=== PATIENT | male | born 1955 | race Caucasian/White ===

== ENCOUNTER 2019-07-05 19:00 | Inpatient (IN) | payer MEDICARE, MEDICAID, SELFPAY ==
--- NOTE | 2019-07-05 19:00 | NURSING ---
Pt arrived from [facility] via ambulance. Alert and oriented x3, pleasant, skin pale, warm and dry.
[2019-07-05 20:48] VITALS: BP 100/37; PULSE 105; RESP 24; TEMP 36.7; O2SAT 90
--- NOTE | 2019-07-05 21:28 | HP.PCM_ITS ---
Problem List (1) Debility Status: Acute (2) Abdominal pain Status: Acute (3) Pneumoperitoneum Status: Acute (4) Large bowel obstruction Status: Acute (5) Cecum perforation Status: Acute (6) Body mass index (BMI) 40.0-44.9, adult Status: Chronic (7) Obstructive sleep apnea Status: Chronic (8) Gastric ulcer Status: Chronic (9) Ischemic colitis Status: Chronic (10) Coronary artery disease Status: Chronic (11) Atrial fibrillation Status: Chronic (12) Chronic kidney disease Status: Chronic (13) Osteoarthritis Status: Chronic (14) Hyperthyroidism Status: Chronic (15) Chronic systolic (congestive) heart failure Status: Chronic (16) Hypertension Status: Chronic (17) Hyperlipidemia Status: Chronic (18) Kidney stone Status: Chronic (19) Depression Status: Chronic History of Present Illness Date of Admission: 07/05/19 Chief Complaint: Here for rehabilitation, strengthening, prior to discharge home alone. The patient is a 63 year old Male with below past medical history with followin06/27/2019 Admit to [facility] with abdominal pain. Right lower quadrant abdominal pain x 5 days, worse day of admission. Diarrhea prior. Pneumoperitoneum noted. To OR emergently for exploratory laparotomy. 06/27/2019 Large bowel obstruction with cecal perforation. Performed exploratory laparotomy with ileocolectomy with primary anastomosis. 06/06/2019 Echo systolic function mildly decreased. EF 45% Pulmonary artery systolic pressure 35mm HG, mildly increased. 07/04/2019 Pathology shows cecal ischemic necrosis, negative for malignancy. Finished IV Invanz antibiotic course, leukocytosis resolved. Xarelto restarted for atrial fibrillation. PT/OT recommended [facility] for short term rehab. Acute kidney injury improved, Nephrology consulted. 07/05/2019 Admit to TCU with debility, here for rehabilitation, strengthening, prior to discharge home alone. Past Medical History Past Medical History (Chronic Problems): Chronic Problems Body mass index (BMI) 40.0-44.9, adult (Chronic) Obstructive sleep apnea (Chronic) Gastric ulcer (Chronic) Ischemic colitis (Chronic) Coronary artery disease (Chronic) Atrial fibrillation (Chronic) Chronic kidney disease (Chronic) Osteoarthritis (Chronic) Hyperthyroidism (Chronic) Chronic systolic (congestive) heart failure (Chronic) Hypertension (Chronic) Hyperlipidemia (Chronic) Kidney stone (Chronic) Depression (Chronic) Home Medications: Ambulatory Orders Medication Instructions Recorded Atorvastatin Calcium 80 mg PO QHS 07/05/19 Citalopram [Celexa] 40 mg PO DAILY 07/05/19 Clopidogrel Bisulfate [Clopidogrel] 75 mg PO DAILY 07/05/19 Ergocalciferol [Vitamin D] 20,000 units PO BID 07/05/19 Ferrous Sulfate 325 mg PO BIDCM 07/05/19 Methimazole [Tapazole] 2.5 mg PO DAILY 07/05/19 Metoprolol Succinate 200 mg PO DAILY 07/05/19 Multivitamin with Minerals 1 ea PO DAILY 07/05/19 [Multiple Vitamin] Nitroglycerin (INPATIENT USE) 0.4 mg SUBLINGUAL Q5M PRN 07/05/19 [Nitrostat] Pantoprazole Sodium [Protonix] 40 mg PO DAILY 07/05/19 Potassium Chloride [Klor-Con M20] 20 meq PO DAILY 07/05/19 Rivaroxaban [Xarelto] 15 mg PO DAILY 07/05/19 buPROPion tablets [Wellbutrin 100 mg PO BID 07/05/19 tablets] busPIRone [Buspar] 15 mg PO BID 07/05/19 Surgical History: adenoidectomy, coronary bypass surgery - x 5., herniorrhaphy - Epigastric hernia., tonsillectomy, - - Cervical fusion, Knee arthroscopy, Ureteral stent placement. Psychiatric History: Depression Lives: Alone Smoking Status: Former smoker Tobacco Use: Cigars Alcohol: None Drugs: None - *Family History Maternal History Items: Cancer Paternal History Items: Dementia, Heart Disease, Hypertension, - - Thryoid disease. Sibling History Items: Cancer, Diabetes, Heart Disease Review of Systems Constitutional: Denies: Chills, Fever, Weight Change HEENT: Denies: Head Aches, Sinus Congestion, Sinus Drainage Cardiovascular: Denies: Chest Pain, Palpitations Respiratory: Denies: Cough, Shortness of breath at rest, Sputum production Gastrointestinal: Denies: Abdominal Pain, Nausea, Vomiting Genitourinary: Denies: Dysuria Musculoskeletal: Denies: Joint Pain, Joint Tenderness Skin: Denies: Rash, Wounds Neurological: Denies: Numbness, Tingling, Focal weakness Psychiatric: Denies: Anxiety, Depression, Homicidal Ideations, Suicidal Ideations Hematologic/ Lymphatic: Denies: Easy Bruising, Easy Bleeding VTE Information - Inpt Only VTE Present on Admission: No VTE Mechan Device Prophylaxis: Knee High NICKI Hose VTE Pharm Prophylaxis ordered?: No Reason prophylaxis not ordered:: Treatment Not Indicated Patient Problems: Active and Suspected Problems Debility (Acute) Abdominal pain (Acute) Pneumoperitoneum (Acute) Large bowel obstruction (Acute) Cecum perforation (Acute) - Physical Exam Vitals/I&O's: Vital Signs Temp Pulse Resp BP Pulse Ox 98.1 F 105 H 24 H 100/37 L 90 07/05/19 20:48 07/05/19 20:48 07/05/19 20:48 07/05/19 20:48 07/05/19 20:48 Oxygen Delivery Method Room Air General: Alert, Oriented x3, Cooperative HEENT: Atraumatic, PERRLA, EOMI, Normocephalic Neck: Supple, No JVD, Negative Carotid Bruits Lungs: Clear to auscultation, Normal air movement Cardiovascular: No murmurs, Irregular Rate, - - Irregular rhythm. Abdomen: Bowel Sounds Present, Soft, Tender - Left upper quadrant, warm, erythematous. Extremities: No edema, Capillary Refill Less than 3 Seconds Skin: No rashes, No breakdown, Incision - Abdominal incision, reba, clean/dry/intact. Musculoskeletal: No Tenderness to Palpation of Joints or Extremities Neurological: Cranial nerves II-XII grossly intact Psych/Mental Status: Normal Affect, Appropriate Assessment/Plan All Active Problems Debility (Acute) Abdominal pain (Acute) Pneumoperitoneum (Acute) Large bowel obstruction (Acute) Cecum perforation (Acute) 63 year old male with below past medical history hospitalized for pneumoperitoneum, underwent exploratory laparotomy, ileocolectomy, primary anastomosis 06/27/2019, Postoperative course complicated by leukocytosis, encephalopathy, atrial fibrillation with rapid ventricular response, admitted to TCU with debility, here for rehabilitation, strengthening, prior to discharge home alone. * Debility - PT/OT. * Pain - Tylenol 1000MG Q6H PRN pain (1-3), Oxycodone 5MG Q4H PRN pain (4-10). * Bowel - Miralax 17GM daily, Senna/colace 1 tablet BID, Dulcolax 10MG daily PRN. * Adult immunization - Administer Prevnar 13, Pneumovax 23, Fluzone as appropriate. * DVT prophylaxis - Not necessary, already on Xarelto. * Hyperlipidemia - Atorvastatin 80MG QHS. 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 * Anxiety - Buspar 15MG twice daily, stable chronic fdc use, GDR not recommended. * Vitamin D deficiency - D3 2000IU twice daily. * Coronary Artery Disease - Metoprolol succinate 200MG daily, Plavix 75MG daily, NTG 0.4MG Q5M PRN. * Iron deficiency anemia - Ferrous sulfate 325MG twice daily. * Hyperthyroidism - Methimazole 2.5MG daily. * Nutrition - Wayne 1 packet twice daily, MVI daily. * GERD - Pantoprazole 40MG daily. * Hypokalemia - KCL 20MEQ daily. * Atrial fibrillation - Metoprolol succinate 200MG daily, Xarelto 15MG daily. * Abdominal cellulitis - Clindamycin 300MG TID x 7 days.
[2019-07-05 23:33] VITALS: BMI 45.7
[2019-07-05 23:42] VITALS: BMI 45.7
[2019-07-06] MEDS: Atorvastatin Calcium 80 MG Tablet PO ×2 (01:33→22:59)
[2019-07-06] MEDS: oxyCODONE 5 MG Tablet PO ×3 (02:07→23:01)
[2019-07-06] MEDS: Rivaroxaban 15 MG Tablet PO (06:10)
[2019-07-06] MEDS: METHIMAZOLE 5 MG TABLET 2.5 MG PO (06:11)
[2019-07-06] MEDS: Pantoprazole Sodium 40 MG Tablet PO (06:12)
[2019-07-06] MEDS: busPIRone 15 MG TABLET PO ×2 (06:12→17:35)
[2019-07-06] MEDS: Clopidogrel Bisulfate 75 MG Tablet PO (06:12)
[2019-07-06 06:13] VITALS: BP 126/64; PULSE 94
[2019-07-06] MEDS: Metoprolol(XL)Succ 200 MG Tablet PO (06:13)
[2019-07-06] MEDS: buPROPion 100 MG Tablet PO ×2 (06:14→17:41)
[2019-07-06 06:48] LABS: Absolute Neutrophil Count 10.4 X10^3/uL (2.0-7.7); Basophil# 0.04 X10^3/uL; Basophil% 0.3 % (0-1); Eosinophil# 0.21 X10^3/uL; Eosinophils% 1.7 % (0-5); Hematocrit 24.5 % (40-54); Hemoglobin 8.1 g/dL (13.0-16.5); Lymphocyte % 7.9 % (19-41); Mean Corp Hgb Conc 33.1 g/dL (32-36); Mean Corpuscular Hgb 30.5 pg (27.0-32.0); Mean Corpuscular Volume 92.1 fL (80-94); Monocyte# 0.89 X10^3/uL; NRBC Flagged by Analyzer 0 % (0-5); Neutrophil # 10.38 X10^3/uL (2.7-7.7); Neutrophil % 81.9 % (47-70); Platelet Count 316 K/mm3 (150-450); RBC Distribution Width CV 13.8 % (11.6-14.6); RBC Distribution Width SD 46.7 fl (35.1-43.9); Red Blood Count 2.66 M/mm3 (4.6-6.2); White Blood Count 12.7 K/mm3 (4.4-11.0)
[2019-07-06 07:08] LABS: Anion Gap 4 (5-15); BUN 15 mg/dL (7-18); BUN/Creat Ratio 17.5 RATIO (10-20); Calcium,Total 8.1 mg/dL (8.5-10.1); Chloride 106 mmol/L (98-107); Creatinine, Serum 0.86 mg/dL (0.70-1.30); EST Glomerular Filtration Rate 95 mL/min (>60); Est Glom Filt Rate - Afr Amer 115 mL/min (>60); Estimated Creatinine Clearance 93.99 ml/min; Glucose 110 mg/dL (74-106); Potassium 3.4 mmol/L (3.5-5.1); Sodium Level 137 mmol/L (136-145)
[2019-07-06] MEDS: Multivitamins,Ther W-Minerals Tablet 1 TABLET PO (08:34)
[2019-07-06] MEDS: Ferrous Sulfate 325 MG Tablet PO ×2 (08:34→17:36)
--- NOTE | 2019-07-06 10:29 | CASEMGMT ---
Social Work Discussed code status with pt. Pt confirmed full code. MOLST form completed and put in chart. Rhianna Triplett, AUTOMATIC QUILLING MACHINE OPERATOR MECHANICAL EQUIPMENT SALES ENGINEER
[2019-07-06] MEDS: Clindamycin HCl 150 MG Capsule 300 MG PO ×3 (11:20→22:59)
[2019-07-06] MEDS: Tuberculin,Purif.prot.deriv. 50 TU/ML Vial 5 ML ID (11:25)
[2019-07-06 14:40] VITALS: BP 134/55; PULSE 92; RESP 18; TEMP 36.3; O2SAT 93
--- NOTE | 2019-07-06 15:28 | CHAPLAIN ---
Type of Pastoral Visit _x__ Initial Visit ___ Follow-up Visit ___ On-call Visit ___ General Patient Visit ___ Spiritual Assessment ___ Family Conference ___ Bereavement ___ Rapid Response ___ Code Blue ___ Other (describe below) Pastoral Care Referral From _x__ Patient ___ Family ___ Nurse ___ Physician ___ Charge Manager ___ Paper Bag Inspector ___ Other (describe below) Sacrament/Intervention _x__ Active listening ___ Anointing ___ Caodaism ___ Bereavement ___ Communion ___ Irene exploration ___ _x__ Life review ___ Prayer ___ Reconciliation ___ Sacrament of Sick _x__ Supportive presence ___ Wedding ___ Other (describe below) Pastoral Comments patient is welcoming and talkative; pt is recently retired; pt has son and a niece that live nearby for support; pt has grandchildren that he wants to spend time with in the future; pt is interested in future visits from geophysical drafter
--- NOTE | 2019-07-06 16:05 | CASEMGMT ---
Social Work Completed advanced directives with pt. Pt named son, Jordon Pederson, as HCPOA. Copies placed in chart. Rhianna Triplett, COREROOM FOUNDRY LABORER IT COMPLIANCE MANAGER
[2019-07-06] MEDS: Senna/Docusate Sodium 1 Tablet PO (17:36)
[2019-07-07] MEDS: Rivaroxaban 15 MG Tablet PO (06:32)
[2019-07-07] MEDS: buPROPion 100 MG Tablet PO ×2 (06:32→16:42)
[2019-07-07] MEDS: METHIMAZOLE 5 MG TABLET 2.5 MG PO (06:33)
[2019-07-07] MEDS: Pantoprazole Sodium 40 MG Tablet PO (06:33)
[2019-07-07] MEDS: Clindamycin HCl 150 MG Capsule 300 MG PO ×3 (06:33→20:30)
[2019-07-07 06:34] VITALS: BP 115/73; PULSE 91
[2019-07-07] MEDS: Metoprolol(XL)Succ 200 MG Tablet PO (06:34)
[2019-07-07] MEDS: Clopidogrel Bisulfate 75 MG Tablet PO (06:34)
[2019-07-07] MEDS: busPIRone 15 MG TABLET PO ×2 (06:34→16:42)
--- NOTE | 2019-07-07 07:52 | NURSING ---
This last night around 21:30 this nurse was doing a assessment on the pt and noted redness around the abdominal area. Had Valerie, Rn assess and she stated it was more redness then yesterday. So we jaye the area with marker and pt started on ATB for redness.
[2019-07-07] MEDS: Multivitamins,Ther W-Minerals Tablet 1 TABLET PO (08:38)
[2019-07-07] MEDS: Ferrous Sulfate 325 MG Tablet PO ×2 (08:38→16:41)
[2019-07-07] MEDS: oxyCODONE 5 MG Tablet PO (08:44)
--- NOTE | 2019-07-07 11:18 | PHA.CONS_ITS ---
<Alli Tucker C - Last Filed: 07/07/19 11:18> Progress Note - Pharmacy Subjective: [] TCU Admission Objective: Allergies Penicillins [PCN] Allergy (Verified 07/05/19 23:59) Swelling Current Medications Generic Name Dose Route Start Last Admin Trade Name Freq PRN Reason Stop Dose Admin Acetaminophen 1,000 mg 07/06/19 01:51 Tylenol PO Q6H PRN PRN pain 1-3/10 Atorvastatin Calcium 80 mg 07/06/19 22:00 07/06/19 22:59 Lipitor PO 80 mg QHS ALINA Administration Bisacodyl 10 mg 07/05/19 22:54 Dulcolax PO DAILY PRN PRN Constipation Bupropion HCl 100 mg 07/06/19 06:00 07/07/19 06:32 Wellbutrin Tablets PO 100 mg BID ALINA Administration Buspirone HCl 15 mg 07/06/19 06:00 07/07/19 06:34 Buspar PO 15 mg BID ALINA Administration Cholecalciferol 2,000 unit 07/06/19 08:00 07/07/19 08:38 Vitamin D (25mcg) PO 2,000 unit BIDCM [facility] Administration Clindamycin HCl 300 mg 07/06/19 09:00 07/07/19 06:33 Cleocin PO 07/13/19 14:01 300 mg TID ALINA Administration Clopidogrel Bisulfate 75 mg 07/06/19 06:00 07/07/19 06:34 Plavix PO 75 mg DAILY ALINA Administration Ferrous Sulfate 325 mg 07/06/19 08:00 07/07/19 08:38 Ferrous Sulfate PO 325 mg BIDCM [facility] Administration Methimazole 2.5 mg 07/06/19 06:00 07/07/19 06:33 Tapazole PO 2.5 mg DAILY [facility] Administration Metoprolol Succinate 200 mg 07/06/19 06:00 07/07/19 06:34 Toprol Xl (Beta Sari) PO 200 mg DAILY [facility] Administration Multivitamins/Minerals 1 tablet 07/06/19 08:00 07/07/19 08:38 Multivitamin With Minerals (Bkc) PO 1 tablet DAILY@0800 [facility] Administration Nitroglycerin 0.4 mg 07/05/19 23:07 Nitrostat SUBLINGUAL Q5M PRN CHEST Nutritional Formula 1 packet 07/06/19 08:00 07/07/19 08:38 [place] Flavor PO 1 packet BIDCM ALINA Administration Oxycodone HCl 5 mg 07/06/19 01:51 07/07/19 08:44 Oxyir PO 5 mg Q4H PRN PRN Administration Pain Score 4-10/10 Pantoprazole Sodium 40 mg 07/06/19 06:00 07/07/19 06:33 Protonix PO 40 mg DAILY ALINA Administration Polyethylene Glycol 17 gm 07/07/19 06:00 07/07/19 06:34 Miralax PO Not Given DAILY ALINA Potassium Chloride 20 meq 07/06/19 08:00 07/07/19 08:38 K-Dur PO 20 meq DAILYCM ALINA Administration Rivaroxaban 15 mg 07/06/19 06:00 07/07/19 06:32 Xarelto PO 15 mg DAILY ALINA Administration Senna/Docusate Sodium 1 tablet 07/06/19 18:00 07/07/19 06:34 Senokot-S, Kareen-Colace PO Not Given BID [facility] Tuberculin PPD 5 tu 07/13/19 10:00 Tubersol, Aplisol, Ppd ID 07/13/19 10:01 X1 ONE Problem List Debility (Acute) Abdominal pain (Acute) Pneumoperitoneum (Acute) Large bowel obstruction (Acute) Cecum perforation (Acute) Body mass index (BMI) 40.0-44.9, adult (Chronic) Obstructive sleep apnea (Chronic) Gastric ulcer (Chronic) Ischemic colitis (Chronic) Coronary artery disease (Chronic) Atrial fibrillation (Chronic) Chronic kidney disease (Chronic) Osteoarthritis (Chronic) Hyperthyroidism (Chronic) Chronic systolic (congestive) heart failure (Chronic) Hypertension (Chronic) Hyperlipidemia (Chronic) Kidney stone (Chronic) Depression (Chronic) Vital Signs Temp Pulse Resp BP Pulse Ox 97.4 F L 91 18 115/73 93 07/06/19 14:40 07/07/19 06:34 07/06/19 14:40 07/07/19 06:34 07/06/19 14:40 Oxygen Delivery Method Room Air Weight: 152.9 kg Body Mass Index (BMI) 45.7 Sodium 137 mmol/L (136-145) 07/06/19 06:35 Potassium 3.4 mmol/L (3.5-5.1) L 07/06/19 06:35 Chloride 106 mmol/L (98-107) 07/06/19 06:35 Carbon Dioxide 27.0 mmol/L (21.0-32.0) 07/06/19 06:35 Anion Gap 4 (5-15) L 07/06/19 06:35 BUN 15 mg/dL (7-18) 07/06/19 06:35 Creatinine 0.86 mg/dL (0.70-1.30) 07/06/19 06:35 Est GFR (MDRD) Af Amer 115 mL/min (>60) 07/06/19 06:35 Est GFR (MDRD) Non-Af 95 mL/min (>60) 07/06/19 06:35 BUN/Creatinine Ratio 17.5 RATIO (10-20) 07/06/19 06:35 Glucose 110 mg/dL (74-106) H 07/06/19 06:35 Assessment/Plan: 1) Pain: Acetaminophen 1000mg po q6h prn for pain 1-3/10, Oxycodone 5mg po q4h prn pain 4-10/10. Please continue to monitor prn usage and for signs/symptoms of increased/decreased pain. *2) GERD: Pantoprazole 40mg po daily. Please continue to monitor for signs/symptoms of GERD. I could not find a recent serum Magnesium level in the pts chart. Please consider a yearly Magnesium level while the pt is on Pantoprazole. Thanks *3) Hyperlipidemia: Atorvastatin 80mg po qhs. I could not find a recent Lipid panel or a LFT in the pt's chart. Please consider a yearly Lipid panel and LFT while the pt is taking a statin. Thanks 4) Hypokalemia: Potassium Chloride 20meq po daily. Pt's K+ is 3.4. Please continue to monitor. 5) AFib: Metoprolol Succinate 200mg po daily, Xarelto 15mg po daily. Pt's average pulse rate is 95.5. Please continue to monitor. Pt's average BP is 118.75/57.25. Please continue to monitor. 6) Iron Deficiency Anemia: Ferrous Sulfate 325mg bid. Pt's H+H is 8.1 and 24.5 respectively. Please continue to monitor. *7) Hyperthyroidism: Methimazole 2.5mg po daily. I could not find a recent LFT or Thyroid Function Tests in the pts chart. Please consider a yearly LFT test and Thyroid Function Tests while the pt is taking Methimazole. Thanks 8) CAD: Metoprolol Succinate 200mg po daily, Plavix 75mg po daily, NTG 0.4mg sl q5m prn for chest pain. Please continue to monitor prn usage. Pt's average BP is 118.75/57.25. Please continue to monitor. Please continue to monitor for signs/symptoms of bleeding Psychotropic Medications: Buproprion 100mg po bid for depression. See physicians note about GDR. Buspar 15mg po bid for anxiety. See physicians note about GDR Unnecessary Medications: Bowel Regimen: Bisacodyl 10mg po daily prn for constipation, Miralax 17gm po daily, Senna/Docusate 1 tablet po bid. Please continue to monitor prn usage and for signs/symptoms of constipation/diarrhea. Date of Note:: 07/07/19 - Provider Comments Provider responsibility: Provider responsible to enter orders to implement recommendations <Hans Telles Chi - Last Filed: 07/07/19 16:15> Progress Note - Pharmacy Subjective: [] Objective: Allergies Penicillins [PCN] Allergy (Verified 07/05/19 23:59) Swelling Current Medications Generic Name Dose Route Start Last Admin Trade Name Freq PRN Reason Stop Dose Admin Acetaminophen 1,000 mg 07/06/19 01:51 Tylenol PO Q6H PRN PRN pain 1-3/10 Atorvastatin Calcium 80 mg 07/06/19 22:00 07/06/19 22:59 Lipitor PO 80 mg QHS ALINA Administration Bisacodyl 10 mg 07/05/19 22:54 Dulcolax PO DAILY PRN PRN Constipation Bupropion HCl 100 mg 07/06/19 06:00 07/07/19 06:32 Wellbutrin Tablets PO 100 mg BID ALINA Administration Buspirone HCl 15 mg 07/06/19 06:00 07/07/19 06:34 Buspar PO 15 mg BID ALINA Administration Cholecalciferol 2,000 unit 07/06/19 08:00 07/07/19 08:38 Vitamin D (25mcg) PO 2,000 unit BIDCM [facility] Administration Clindamycin HCl 300 mg 07/06/19 09:00 07/07/19 13:18 Cleocin PO 07/13/19 14:01 300 mg TID ALINA Administration Clopidogrel Bisulfate 75 mg 07/06/19 06:00 07/07/19 06:34 Plavix PO 75 mg DAILY [facility] Administration Ferrous Sulfate 325 mg 07/06/19 08:00 07/07/19 08:38 Ferrous Sulfate PO 325 mg BIDCM [facility] Administration Methimazole 2.5 mg 07/06/19 06:00 07/07/19 06:33 Tapazole PO 2.5 mg DAILY [facility] Administration Metoprolol Succinate 200 mg 07/06/19 06:00 07/07/19 06:34 Toprol Xl (Beta Sari) PO 200 mg DAILY [facility] Administration Multivitamins/Minerals 1 tablet 07/06/19 08:00 07/07/19 08:38 Multivitamin With Minerals (Bkc) PO 1 tablet DAILY@0800 [facility] Administration Nitroglycerin 0.4 mg 07/05/19 23:07 Nitrostat SUBLINGUAL Q5M PRN CHEST Nutritional Formula 1 packet 07/06/19 08:00 07/07/19 08:38 [place] Flavor PO 1 packet BIDCM [facility] Administration Oxycodone HCl 5 mg 07/06/19 01:51 07/07/19 08:44 Oxyir PO 5 mg Q4H PRN PRN Administration Pain Score 4-10/10 Pantoprazole Sodium 40 mg 07/06/19 06:00 07/07/19 06:33 Protonix PO 40 mg DAILY [facility] Administration Polyethylene Glycol 17 gm 07/07/19 06:00 07/07/19 06:34 Miralax PO Not Given DAILY [facility] Potassium Chloride 20 meq 07/06/19 08:00 07/07/19 08:38 [facility] Rivaroxaban 15 mg 07/06/19 06:00 07/07/19 06:32 Xarelto PO 15 mg DAILY [facility] Administration Senna/Docusate Sodium 1 tablet 07/06/19 18:00 07/07/19 06:34 Senokot-S, Kareen-Colace PO Not Given BID [facility] Tuberculin PPD 5 tu 07/13/19 10:00 Tubersol, Aplisol, Ppd ID 07/13/19 10:01 X1 ONE Problem List Debility (Acute) Abdominal pain (Acute) Pneumoperitoneum (Acute) Large bowel obstruction (Acute) Cecum perforation (Acute) Body mass index (BMI) 40.0-44.9, adult (Chronic) Obstructive sleep apnea (Chronic) Gastric ulcer (Chronic) Ischemic colitis (Chronic) Coronary artery disease (Chronic) Atrial fibrillation (Chronic) Chronic kidney disease (Chronic) Osteoarthritis (Chronic) Hyperthyroidism (Chronic) Chronic systolic (congestive) heart failure (Chronic) Hypertension (Chronic) Hyperlipidemia (Chronic) Kidney stone (Chronic) Depression (Chronic) Vital Signs Temp Pulse Resp BP Pulse Ox 99.4 F H 95 17 110/71 98 07/07/19 14:26 07/07/19 14:26 07/07/19 14:26 07/07/19 14:26 07/07/19 14:26 Oxygen Delivery Method Room Air Weight: 152.9 kg Body Mass Index (BMI) 45.7 Sodium 137 mmol/L (136-145) 07/06/19 06:35 Potassium 3.4 mmol/L (3.5-5.1) L 07/06/19 06:35 Chloride 106 mmol/L (98-107) 07/06/19 06:35 Carbon Dioxide 27.0 mmol/L (21.0-32.0) 07/06/19 06:35 Anion Gap 4 (5-15) L 07/06/19 06:35 BUN 15 mg/dL (7-18) 07/06/19 06:35 Creatinine 0.86 mg/dL (0.70-1.30) 07/06/19 06:35 Est GFR (MDRD) Af Amer 115 mL/min (>60) 07/06/19 06:35 Est GFR (MDRD) Non-Af 95 mL/min (>60) 07/06/19 06:35 BUN/Creatinine Ratio 17.5 RATIO (10-20) 07/06/19 06:35 Glucose 110 mg/dL (74-106) H 07/06/19 06:35 Assessment/Plan: Psychotropic Medications: Unnecessary Medications: Bowel Regimen: - Provider Comments Provider responsibility: Provider responsible to enter orders to implement recommendations Provider Comments to Recommendations by Pharmacy: Agree
[2019-07-07 14:26] VITALS: BP 110/71; PULSE 95; RESP 17; TEMP 37.4; O2SAT 98
[2019-07-07] MEDS: Senna/Docusate Sodium 1 Tablet PO (16:42)
[2019-07-07 17:38] VITALS: TEMP 37.1
[2019-07-07] MEDS: Acetaminophen 500 MG Tablet 1000 MG PO (20:29)
[2019-07-07] MEDS: Atorvastatin Calcium 80 MG Tablet PO (20:30)
[2019-07-08] MEDS: buPROPion 100 MG Tablet PO ×2 (06:22→17:42)
[2019-07-08] MEDS: busPIRone 15 MG TABLET PO ×2 (06:22→17:42)
[2019-07-08] MEDS: Clindamycin HCl 150 MG Capsule 300 MG PO ×3 (06:22→21:32)
[2019-07-08] MEDS: METHIMAZOLE 5 MG TABLET 2.5 MG PO (06:22)
[2019-07-08] MEDS: Clopidogrel Bisulfate 75 MG Tablet PO (06:22)
[2019-07-08] MEDS: Rivaroxaban 15 MG Tablet PO (06:23)
[2019-07-08] MEDS: Pantoprazole Sodium 40 MG Tablet PO (06:23)
[2019-07-08 06:24] VITALS: BP 113/65; PULSE 100
[2019-07-08] MEDS: Metoprolol(XL)Succ 200 MG Tablet PO (06:24)
[2019-07-08] MEDS: Menthol/Lanolin/Calamine/Znox 113 GM Tube 1 APPLIC TOPICAL ×2 (06:27→21:32)
[2019-07-08] MEDS: Ferrous Sulfate 325 MG Tablet PO ×2 (08:00→17:42)
[2019-07-08] MEDS: Multivitamins,Ther W-Minerals Tablet 1 TABLET PO (08:00)
--- NOTE | 2019-07-08 12:14 | CASEMGMT ---
Social Work Insurance issued LCD 07/12, DC 07/13. Spoke with pt and pt agreeable and ready to DC. Pt's son has all DME needed. Pt agreeable to [facility]. Provided list. Pt chose [facility]. Referral made for PT/OT/SN. Plan: DC home alone 07/13 with [facility] PT/OT/SN. No DME needs Rhianna Triplett, LEATHER FINISHER CEREAL SUPERVISOR
[2019-07-08 13:34] VITALS: PULSE 64; RESP 18; O2SAT 92
[2019-07-08 14:41] VITALS: BP 123/44; PULSE 90; RESP 18; TEMP 37.6; O2SAT 98
[2019-07-08] MEDS: oxyCODONE 5 MG Tablet PO ×2 (17:47→23:20)
[2019-07-08] MEDS: Atorvastatin Calcium 80 MG Tablet PO (21:32)
[2019-07-09] MEDS: Clopidogrel Bisulfate 75 MG Tablet PO (06:10)
[2019-07-09] MEDS: Menthol/Lanolin/Calamine/Znox 113 GM Tube 1 APPLIC TOPICAL ×2 (06:10→23:24)
[2019-07-09] MEDS: METHIMAZOLE 5 MG TABLET 2.5 MG PO (06:10)
[2019-07-09] MEDS: Pantoprazole Sodium 40 MG Tablet PO (06:10)
[2019-07-09 06:11] VITALS: BP 137/73; PULSE 71
[2019-07-09] MEDS: Clindamycin HCl 150 MG Capsule 300 MG PO (06:11)
[2019-07-09] MEDS: Metoprolol(XL)Succ 200 MG Tablet PO (06:11)
[2019-07-09] MEDS: Rivaroxaban 15 MG Tablet PO (06:11)
[2019-07-09] MEDS: busPIRone 15 MG TABLET PO ×2 (06:11→16:57)
[2019-07-09] MEDS: buPROPion 100 MG Tablet PO ×2 (06:11→16:57)
[2019-07-09] MEDS: Ferrous Sulfate 325 MG Tablet PO ×2 (08:23→16:57)
[2019-07-09] MEDS: Multivitamins,Ther W-Minerals Tablet 1 TABLET PO (08:41)
--- NOTE | 2019-07-09 13:28 | DCINST_ITS ---
- Discharge Diagnoses Current Active Problems: Current Active and Chronic Problems Debility (Acute) Abdominal pain (Acute) Pneumoperitoneum (Acute) Large bowel obstruction (Acute) Cecum perforation (Acute) Body mass index (BMI) 40.0-44.9, adult (Chronic) Obstructive sleep apnea (Chronic) Gastric ulcer (Chronic) Ischemic colitis (Chronic) Coronary artery disease (Chronic) Atrial fibrillation (Chronic) Chronic kidney disease (Chronic) Osteoarthritis (Chronic) Hyperthyroidism (Chronic) Chronic systolic (congestive) heart failure (Chronic) Hypertension (Chronic) Hyperlipidemia (Chronic) Kidney stone (Chronic) Depression (Chronic) You will use the following diet at home:: No restrictions, Regular Your food should be the consistency of: Regular Your liquids should be the consistency of: Regular/Thin Discharge Activity: Return to Normal Activity, May Shower, Use Walker Weight Bearing Status: Weight bearing as tolerated Call your doctor if you observe: Fever of 101 or Higher, Inability to urinate, Inability to have a bowel movement, Shortness of breath, Chest pain, Uncontrolled pain Allergies/Adverse Reactions: Allergies Penicillins [PCN] Allergy (Verified 07/05/19 23:59) Swelling Medications to take at Discharge Atorvastatin Calcium 80 mg PO QHS 07/05/19 Clopidogrel Bisulfate [Clopidogrel] 75 mg PO DAILY 07/05/19 Methimazole [Tapazole] 2.5 mg PO DAILY 07/05/19 Metoprolol Succinate 200 mg PO DAILY 07/05/19 Multivitamin with Minerals [Multiple Vitamin] 1 ea PO DAILY 07/05/19 Nitroglycerin (INPATIENT USE) [Nitrostat] 0.4 mg SUBLINGUAL Q5M PRN 07/05/19 Potassium Chloride [Klor-Con M20] 20 meq PO DAILY 07/05/19 Rivaroxaban [Xarelto] 15 mg PO DAILY 07/05/19 buPROPion tablets [Wellbutrin tablets] 100 mg PO BID 07/05/19 busPIRone [Buspar] 15 mg PO BID 07/05/19 Acetaminophen [Tylenol] 1,000 mg PO Q6H PRN PRN tab 07/09/19 Ferrous Sulfate 325 mg PO BIDCM #60 tab 07/09/19 Menthol/Lanolin/Calamine/Znox [Calmoseptine Ointment] 1 applic TOPICAL 0600,2200 tube 07/09/19 Mineral Oil/Petrolatum,White [Eucerin] 1 applic TOPICAL 2200 jar 07/09/19 Nutritional Supplement [[place] - [place]] 1 packet PO BIDCM #60 packet 07/09/19 Oxycodone [Oxyir] 5 mg PO Q4H PRN PRN 7 Days #42 tab 07/09/19 Pantoprazole Sodium [Protonix] 40 mg PO DAILY #30 tab 07/09/19 Polyethylene Glycol 3350 [Miralax] 17 gm PO DAILY #30 packet 07/09/19 Senna/Docusate Sodium [Senokot-S] 1 tab PO BID #60 tab 07/09/19 The following prescriptions were given: Ferrous Sulfate 325 mg PO BIDCM #60 tab Prescription Printed Nutritional Supplement [[place] - [place]] 1 packet PO BIDCM #60 packet Prescription Printed Polyethylene Glycol 3350 [Miralax] 17 gm PO DAILY #30 packet Prescription Printed Oxycodone [Oxyir] 5 mg PO Q4H PRN PRN 7 Days #42 tab PRN Reason: Pain Score 4-10/10 Prescription Printed Pantoprazole Sodium [Protonix] 40 mg PO DAILY #30 tab Prescription Printed Senna/Docusate Sodium [Senokot-S] 1 tab PO BID #60 tab Prescription Printed Primary Care Physician: Jj Rogers MD [NON-STAFF] - Please follow up with your Primary Care Physician in: 1 week. Test Results: Test results from this visit will be discussed in further detail at your follow- up appointment, if applicable. Please Follow Up With: Mary Valle MD When: 2 weeks. Please Follow Up With: Clif Kenny MD (will NOT need to see Alissa Nath CNP) When: 2 weeks. Please Follow Up With: Ke Carr MD When: in 1 week Please Follow Up With: Mary Valle MD When: patti Proposed Discharge Date: 07/14/19
--- NOTE | 2019-07-09 13:31 | PCM.DC.SUM ---
Discharge Date and Diagnosis - Problem List Patient Problems: Active and Suspected Problems Debility (Acute) Abdominal pain (Acute) Pneumoperitoneum (Acute) Large bowel obstruction (Acute) Cecum perforation (Acute) Date of Admission: 07/05/19 Date of Discharge: 07/14/19 - Primary Discharge Diagnosis Active and Suspected Problems Debility (Acute) Abdominal pain (Acute) Pneumoperitoneum (Acute) Large bowel obstruction (Acute) Cecum perforation (Acute) - Secondary Discharge Diagnosis Chronic Problems Body mass index (BMI) 40.0-44.9, adult (Chronic) Obstructive sleep apnea (Chronic) Gastric ulcer (Chronic) Ischemic colitis (Chronic) Coronary artery disease (Chronic) Atrial fibrillation (Chronic) Chronic kidney disease (Chronic) Osteoarthritis (Chronic) Hyperthyroidism (Chronic) Chronic systolic (congestive) heart failure (Chronic) Hypertension (Chronic) Hyperlipidemia (Chronic) Kidney stone (Chronic) Depression (Chronic) Hospital Course and Treatment Imaging Results: 07/05/19 23:01 Diet: Regular Diet Food consistency:: Regular Liquid Consistency:: Regular/Thin Diet Comments: low fiber Operations: None Procedures: None Summary of Care Provided: The patient is a 63 year old Male with below past medical history hospitalized for pneumoperitoneum, underwent exploratory laparotomy, ileocolectomy, primary anastomosis 06/27/2019, Postoperative course complicated by leukocytosis, encephalopathy, atrial fibrillation with rapid ventricular response, admitted to TCU with debility, here for rehabilitation, strengthening, prior to discharge home alone. 07/05/2019 Resident treated for abdominal incision cellulitis with Levaquin 500MG IV Q24H x 5 days. Discharge home alone, [facility] PT/OT/SN. Patient Problems: Active and Suspected Problems Debility (Acute) Abdominal pain (Acute) Pneumoperitoneum (Acute) Large bowel obstruction (Acute) Cecum perforation (Acute) - Physical Exam Vitals/I&O's: Vital Signs Temp Pulse Resp BP Pulse Ox 99.6 F H 71 18 137/73 H 98 07/08/19 14:41 07/09/19 06:11 07/08/19 14:41 07/09/19 06:11 07/08/19 14:41 Oxygen Delivery Method Room Air Weight: 152.9 kg Body Mass Index (BMI) 45.7 Intake and Output for Last 24 Hours 07/07/19 07/08/19 07/09/19 23:59 23:59 23:59 Intake Total 1080 / 1080 1910 / 1910 520 / 520 Output Total 2 / 2 Balance 1078 / 1078 1909 520 / 520 Current Medications Acetaminophen (Tylenol) 1,000 mg PO Q6H PRN PRN PRN Reason: pain -05/17 Last Admin: 07/07/19 20:29 Dose: 1,000 mg Documented by: Atorvastatin Calcium (Lipitor) 80 mg PO QHS [facility] Last Admin: 07/08/19 21:32 Dose: 80 mg Documented by: Bisacodyl (Dulcolax) 10 mg PO DAILY PRN PRN PRN Reason: Constipation Bupropion HCl (Wellbutrin Tablets) 100 mg PO BID [facility] Last Admin: 07/09/19 06:11 Dose: 100 mg Documented by: Buspirone HCl (Buspar) 15 mg PO BID [facility] Last Admin: 07/09/19 06:11 Dose: 15 mg Documented by: Calamine/Phenol (Calmoseptine Ointment) 1 applic TOPICAL 0600,2199 [facility]; Protocol Last Admin: 07/09/19 06:10 Dose: 1 applicatio Documented by: Cholecalciferol ([facility]itamin [facility] (25mcg)) [facility] Admin: 07/09/19 08:23 Dose: 2,000 unit Documented by: Clopidogrel Bisulfate (Plavix) 75 mg PO DAILY [facility] Last Admin: 07/09/19 06:10 Dose: 75 mg Documented by: Ferrous Sulfate (Ferrous Sulfate) 325 mg PO BIDCM [facility] Last Admin: 07/09/19 08:23 Dose: 325 mg Documented by: Levofloxacin (Levaquin Iv) 500 mg in 100 mls @ 100 mls/hr IV X1 ONE Stop: 07/09/19 14:15 Levofloxacin (Levaquin Iv) 500 mg in 100 mls @ 100 mls/hr IV Q24 [facility] Stop: 07/15/19 10:01 Methimazole (Tapazole) 2.5 mg PO DAILY [facility] Last Admin: 07/09/19 06:10 Dose: 2.5 mg Documented by: Metoprolol Succinate (Toprol Xl (Beta Sari)) 200 mg PO DAILY [facility] Last Admin: 07/09/19 06:11 Dose: 200 mg Documented by: Multi-Ingredient Cream (Eucerin) 1 applic TOPICAL 2199 [facility]; Protocol Last Admin: 07/08/19 21:35 Dose: 1 applicatio Documented by: Multivitamins/Minerals (Multivitamin With Minerals (Bkc)) 1 tablet PO DAILY@0800 [facility] Last Admin: 07/09/19 08:41 Dose: 1 tablet Documented by: Nitroglycerin (Nitrostat) 0.4 mg SUBLINGUAL Q5M PRN PRN Reason: CHEST Nutritional Formula ([place] - [place] Flavor) [facility] Last Admin: 07/09/19 08:23 Dose: 1 packet Documented by: Oxycodone HCl (Oxyir) 5 mg PO Q4H PRN PRN PRN Reason: Pain Score 4-10/10 Last Admin: 07/08/19 23:20 Dose: 5 mg Documented by: Pantoprazole Sodium (Protonix) 40 mg PO DAILY [facility] Last Admin: 07/09/19 06:10 Dose: 40 mg Documented by: Polyethylene Glycol (Miralax) 17 gm PO DAILY [facility] Last Admin: 07/09/19 06:10 Dose: Not Given Documented by: Potassium Chloride (K-Dur) [facility] Last Admin: 07/09/19 08:23 Dose: 20 meq Documented by: Rivaroxaban (Xarelto) 15 mg PO DAILY [facility] Last Admin: 07/09/19 06:11 Dose: 15 mg Documented by: Senna/Docusate Sodium (Senokot-S, Kareen-Colace) 1 tablet PO BID [facility] Last Admin: 07/09/19 06:10 Dose: Not Given Documented by: Tuberculin PPD (Tubersol, Aplisol, Ppd) 5 tu ID [id number] Stop: 07/13/19 10:01 Discharge Diet: No Restrictions Discharge Activity: Return to Normal Activity, May Shower, Use Walker Weight Bearing Status: Weight bearing as tolerated Call your doctor if you observe: Fever of 101 or Higher, Inability to urinate, Inability to have a bowel movement, Shortness of breath, Chest pain, Uncontrolled pain Home Medications: Medications to take at Discharge Atorvastatin Calcium 80 mg PO QHS 07/05/19 Clopidogrel Bisulfate [Clopidogrel] 75 mg PO DAILY 07/05/19 Methimazole [Tapazole] 2.5 mg PO DAILY 07/05/19 Metoprolol Succinate 200 mg PO DAILY 07/05/19 Multivitamin with Minerals [Multiple Vitamin] 1 ea PO DAILY 07/05/19 Nitroglycerin (INPATIENT USE) [Nitrostat] 0.4 mg SUBLINGUAL Q5M PRN 07/05/19 Potassium Chloride [Klor-Con M20] 20 meq PO DAILY 07/05/19 Rivaroxaban [Xarelto] 15 mg PO DAILY 07/05/19 buPROPion tablets [Wellbutrin tablets] 100 mg PO BID 07/05/19 busPIRone [Buspar] 15 mg PO BID 07/05/19 Acetaminophen [Tylenol] 1,000 mg PO Q6H PRN PRN tab 07/09/19 Ferrous Sulfate 325 mg PO BIDCM #60 tab 07/09/19 Menthol/Lanolin/Calamine/Znox [Calmoseptine Ointment] 1 applic TOPICAL 0600,2200 tube 07/09/19 Mineral Oil/Petrolatum,White [Eucerin] 1 applic TOPICAL 2200 jar 07/09/19 Nutritional Supplement [[place] - ORANGE FLAVOR] 1 packet PO BIDCM #60 packet 07/09/19 Oxycodone [Oxyir] 5 mg PO Q4H PRN PRN 7 Days #42 tab 07/09/19 Pantoprazole Sodium [Protonix] 40 mg PO DAILY #30 tab 07/09/19 Polyethylene Glycol 3350 [Miralax] 17 gm PO DAILY #30 packet 07/09/19 Senna/Docusate Sodium [Senokot-S] 1 tab PO BID #60 tab 07/09/19 Following Prescrptions Were Given to Patient: Ferrous Sulfate 325 mg PO BIDCM #60 tab Prescription Printed Nutritional Supplement [[place] - ORANGE FLAVOR] 1 packet PO BIDCM #60 packet Prescription Printed Polyethylene Glycol 3350 [Miralax] 17 gm PO DAILY #30 packet Prescription Printed Oxycodone [Oxyir] 5 mg PO Q4H PRN PRN 7 Days #42 tab PRN Reason: Pain Score 4-10/10 Prescription Printed Pantoprazole Sodium [Protonix] 40 mg PO DAILY #30 tab Prescription Printed Senna/Docusate Sodium [Senokot-S] 1 tab PO BID #60 tab Prescription Printed Primary Care Physician: Jj Rogers MD [NON-STAFF] - Please follow up with your Primary Care Physician in: 1 week. Please Follow Up With: Mary Valle MD When: 2 weeks. Please Follow Up With: Clif Kenny MD (will NOT need to see Alissa Nath CNP) When: 2 weeks. Please Follow Up With: Ke Carr MD When: in 1 week Please Follow Up With: Mary Valle MD When: patti Disposition: Home with Home Health Minutes spent on discharge:: 35 Patient Condition:: Stable Medical Necessity - Tobacco Use Smoking Status: Former smoker Tobacco Use: Cigars Meaningful Use Info Meaningful Use Diagnoses (Choose all that apply): None applicable
[2019-07-09 14:41] VITALS: BP 146/77; PULSE 79; RESP 18; TEMP 36.9; O2SAT 98
[2019-07-09 15:24] LABS: ALB/GLOB Ratio 0.6 RATIO (0.9-2.4); AST(SGOT) 52 U/L (15-37); Alanine Aminotransfer ALT/SGPT 56 U/L (16-61); Albumin, Serum 2.1 g/dL (3.2-5.0); Alkaline Phosphatase 60 U/L (45-117); Anion Gap 7 (5-15); BUN 19 mg/dL (7-18); BUN/Creat Ratio 23.5 RATIO (10-20); Calcium,Total 7.8 mg/dL (8.5-10.1); Chloride 107 mmol/L (98-107); Creatinine, Serum 0.81 mg/dL (0.70-1.30); EST Glomerular Filtration Rate 102 mL/min (>60); Est Glom Filt Rate - Afr Amer 123 mL/min (>60); Estimated Creatinine Clearance 99.79 ml/min; Globulin 3.3 g/dL (2.2-4.2); Glucose 111 mg/dL (74-106); Potassium 4.2 mmol/L (3.5-5.1); Protein, Total 5.4 g/dL (6.4-8.2); Sodium Level 138 mmol/L (136-145)
[2019-07-09 15:24] LABS: Mucous, Urine 0 SEEN /hpf (<or=2+)
[2019-07-09 15:27] LABS: Color, Urine Yellow (Yellow); Glucose, Dipstick Normal (Normal); Ketone-Dipstick Negative (Negative); Leukocyte Esterase-Dipstick 25 /ul (Negative); Nitrite-Dipstick Negative (Negative); Occult Blood-Urine 250 /ul (Negative); Protein-Dipstick 30 mg/dl (Negative); Urine Bilirubin Dipstick Negative (Negative); Urine Clarity Clear (Clear); Urine Urobilinogen Normal (Normal)
[2019-07-09 15:33] LABS: Bacteria RARE /hpf (None Seen); Red Blood Cells-Urine 5-10 SEEN /hpf (0-5); Squamous Epithelial Cells - UA 0-5 SEEN /hpf (0-5); White Blood Cells 0-5 SEEN /hpf (0-5)
[2019-07-09] MEDS: levoFLOXacin IV 500 MG/100 ML BAG 100 MG IV (15:53)
[2019-07-09] MEDS: 0.9% Normal Saline 250 ML IV.SOLN. IV (16:58)
[2019-07-09] MEDS: Senna/Docusate Sodium 1 Tablet PO (16:58)
[2019-07-09 17:46] LABS: Absolute Lymphocyte Count 0.95 X10^3/uL (0.83-4.51); Absolute Neutrophil Count 8.9 X10^3/uL (2.0-7.7); Basophil# 0.05 X10^3/uL; Basophil% 0.4 % (0-1); Eosinophil# 0.36 X10^3/uL; Eosinophils% 3.2 % (0-5); Hematocrit 23.1 % (40-54); Hemoglobin 7.5 g/dL (13.0-16.5); Lymphocyte # 0.95 X10^3/ul (4.0); Lymphocyte % 8.4 % (19-41); Mean Corp Hgb Conc 32.5 g/dL (32-36); Mean Corpuscular Hgb 30.6 pg (27.0-32.0); Mean Corpuscular Volume 94.3 fL (80-94); Mean Platelet Vol. 9.2 fl (6.2-12.0); Monocyte# 0.86 X10^3/uL; Monocyte% 7.6 % (0-10); NRBC Flagged by Analyzer 0 % (0-5); Neutrophil # 8.92 X10^3/uL (2.7-7.7); Neutrophil % 79.2 % (47-70); Platelet Count 446 K/mm3 (150-450); RBC Distribution Width CV 14.2 % (11.6-14.6); RBC Distribution Width SD 48.3 fl (35.1-43.9); Red Blood Count 2.45 M/mm3 (4.6-6.2); White Blood Count 11.3 K/mm3 (4.4-11.0)
--- NOTE | 2019-07-09 18:15 | PCM.RX.CS ---
Consult Pharmacy has been consulted to manage selected antiobiotic: Vancomycin Type of Consult: New start Suspected Infection: Bacteremia Prior Doses of Antibiotics Received/Current Regimen: Received loading dose of 2gm iv x 1 on 07.09.19. Labs: Sodium 138 mmol/L (136-145) 07/09/19 14:50 Potassium 4.2 mmol/L (3.5-5.1) 07/09/19 14:50 Chloride 107 mmol/L (98-107) 07/09/19 14:50 Carbon Dioxide 24.0 mmol/L (21.0-32.0) 07/09/19 14:50 Anion Gap 7 (5-15) 07/09/19 14:50 BUN 19 mg/dL (7-18) H 07/09/19 14:50 Creatinine 0.81 mg/dL (0.70-1.30) 07/09/19 14:50 Est GFR (MDRD) Af Amer 123 mL/min (>60) 07/09/19 14:50 Est GFR (MDRD) Non-Af 102 mL/min (>60) 07/09/19 14:50 BUN/Creatinine Ratio 23.5 RATIO (10-20) H 07/09/19 14:50 Glucose 111 mg/dL (74-106) H 07/09/19 14:50 Weight used for dosin kg Estimated Creatinine Clearance: ~100ml/min Goal Trough: 15-20 mcg/mL Pharmacy Plan for Drug Dosing: Pharmacy Service will continue to monitor and adjust dosing as required. Follow-Up Labs: Trough Vancomycin - 5.2.20 @1530 before 1600 dose
--- NOTE | 2019-07-09 20:34 | NURSING ---
Notified Dr. Telles that patient insurance is closed and we are unable to get a pre-authorization for the CT until Friday. Dr. Telles stated to monitor the patient and if he has any changes for the worse to notify him immediately. Nursing staff made aware of this.
[2019-07-09 22:29] LABS: M R Staph aureus DNA By PCR Negative (Negative); Probe Check PASS; Specimen Processing Control PASS
[2019-07-09] MEDS: Atorvastatin Calcium 80 MG Tablet PO (23:24)
[2019-07-09] MEDS: 0.9% Saline Lock 10 ML Syringe IV (23:36)
[2019-07-10] MEDS: busPIRone 15 MG TABLET PO ×2 (06:28→18:38)
[2019-07-10] MEDS: METHIMAZOLE 5 MG TABLET 2.5 MG PO (06:28)
[2019-07-10] MEDS: Senna/Docusate Sodium 1 Tablet PO ×2 (06:28→18:37)
[2019-07-10] MEDS: buPROPion 100 MG Tablet PO ×2 (06:28→18:40)
[2019-07-10] MEDS: Pantoprazole Sodium 40 MG Tablet PO (06:28)
[2019-07-10] MEDS: Rivaroxaban 15 MG Tablet PO (06:28)
[2019-07-10 06:29] VITALS: BP 117/70; PULSE 115
[2019-07-10] MEDS: Metoprolol(XL)Succ 200 MG Tablet PO (06:29)
[2019-07-10] MEDS: Menthol/Lanolin/Calamine/Znox 113 GM Tube 1 APPLIC TOPICAL ×2 (06:30→20:49)
[2019-07-10] MEDS: Clopidogrel Bisulfate 75 MG Tablet PO (06:32)
[2019-07-10] MEDS: Ferrous Sulfate 325 MG Tablet PO ×2 (08:01→18:37)
[2019-07-10] MEDS: Multivitamins,Ther W-Minerals Tablet 1 TABLET PO (08:01)
[2019-07-10 09:35] VITALS: PULSE 66; RESP 16; O2SAT 97
[2019-07-10 15:57] LABS: Vancomycin, Trough Level 15.1 ug/mL (5.0-15.0)
[2019-07-10 16:00] VITALS: BP 125/87; PULSE 97; RESP 18; TEMP 36.4; O2SAT 99
--- NOTE | 2019-07-10 19:40 | NURSING ---
Dr. Telles gave order over phone to reinstate previous vancomycin order. Order entered in.
--- NOTE | 2019-07-10 20:42 | PHA.PHARE_ITS ---
Consult Pharmacy has been consulted to manage selected antiobiotic: Vancomycin Type of Consult: Follow-up Suspected Infection: Other Prior Doses of Antibiotics Received/Current Regimen: Medications Vancomycin HCl 1,500 mg/ (Sodium Chloride) 530 mls @ 250 mls/hr IV Q8H [facility] Stop: 07/14/19 14:38 Discontinued Medications Vancomycin HCl 1,500 mg/ (Sodium Chloride) 530 mls @ 250 mls/hr IV Q8H [facility] Last Admin: 07/10/19 07:55 Dose: Infused Labs: Sodium 138 mmol/L (136-145) 07/09/19 14:50 Potassium 4.2 mmol/L (3.5-5.1) 07/09/19 14:50 Chloride 107 mmol/L (98-107) 07/09/19 14:50 Carbon Dioxide 24.0 mmol/L (21.0-32.0) 07/09/19 14:50 Anion Gap 7 (5-15) 07/09/19 14:50 BUN 19 mg/dL (7-18) H 07/09/19 14:50 Creatinine 0.81 mg/dL (0.70-1.30) 07/09/19 14:50 Est GFR (MDRD) Af Amer 123 mL/min (>60) 07/09/19 14:50 Est GFR (MDRD) Non-Af 102 mL/min (>60) 07/09/19 14:50 BUN/Creatinine Ratio 23.5 RATIO (10-20) H 07/09/19 14:50 Glucose 111 mg/dL (74-106) H 07/09/19 14:50 Vancomycin Trough 15.1 ug/mL (5.0-15.0) H 07/10/19 15:20 Weight used for dosin.9 kg Estimated Creatinine Clearance: 100 Goal Trough: 15-20 mcg/mL Pharmacy Plan for Drug Dosing: Trough level of 15.1 was within target range of 15-20. Order had been d/c'd, but then reactivated later in the day, so will continue with same dosing of 1500mg q8h. Just adjusted administration times. Pharmacy Service will continue to monitor and adjust dosing as required. Follow-Up Labs: Trough Vancomycin Labs to be done on [date and time ordered]: 07/12/19 @1200
[2019-07-10] MEDS: Atorvastatin Calcium 80 MG Tablet PO (20:48)
[2019-07-11] MEDS: 0.9% Saline Lock 10 ML Syringe IV ×3 (04:02→21:14)
[2019-07-11] MEDS: Pantoprazole Sodium 40 MG Tablet PO (04:36)
[2019-07-11] MEDS: METHIMAZOLE 5 MG TABLET 2.5 MG PO (04:36)
[2019-07-11] MEDS: busPIRone 15 MG TABLET PO ×2 (04:36→17:41)
[2019-07-11 04:37] VITALS: BP 102/53; PULSE 84
[2019-07-11] MEDS: buPROPion 100 MG Tablet PO ×2 (04:37→17:41)
[2019-07-11] MEDS: Metoprolol(XL)Succ 200 MG Tablet PO (04:37)
[2019-07-11] MEDS: Clopidogrel Bisulfate 75 MG Tablet PO (04:37)
[2019-07-11] MEDS: Rivaroxaban 15 MG Tablet PO (04:38)
[2019-07-11] MEDS: Menthol/Lanolin/Calamine/Znox 113 GM Tube 1 APPLIC TOPICAL ×2 (04:40→20:55)
[2019-07-11] MEDS: Ferrous Sulfate 325 MG Tablet PO ×2 (08:36→17:41)
[2019-07-11] MEDS: Multivitamins,Ther W-Minerals Tablet 1 TABLET PO (08:37)
[2019-07-11] MEDS: Acetaminophen 500 MG Tablet 1000 MG PO (13:33)
[2019-07-11 15:12] VITALS: BP 127/69; PULSE 95; RESP 20; TEMP 37; O2SAT 97
--- NOTE | 2019-07-11 15:30 | NURSING ---
Son, Jordon, updated via phone about father at this time
--- NOTE | 2019-07-11 18:41 | NURSING ---
Dr. Telles aware of wound drainage final results, NNO
[2019-07-11] MEDS: Atorvastatin Calcium 80 MG Tablet PO (20:55)
[2019-07-12] MEDS: oxyCODONE 5 MG Tablet PO ×2 (05:27→21:59)
[2019-07-12 05:29] VITALS: BP 116/64; PULSE 95
[2019-07-12] MEDS: Pantoprazole Sodium 40 MG Tablet PO (05:29)
[2019-07-12] MEDS: Clopidogrel Bisulfate 75 MG Tablet PO (05:29)
[2019-07-12] MEDS: Metoprolol(XL)Succ 200 MG Tablet PO (05:29)
[2019-07-12] MEDS: METHIMAZOLE 5 MG TABLET 2.5 MG PO (05:30)
[2019-07-12] MEDS: buPROPion 100 MG Tablet PO ×2 (05:30→17:44)
[2019-07-12] MEDS: Rivaroxaban 15 MG Tablet PO (05:31)
[2019-07-12] MEDS: busPIRone 15 MG TABLET PO ×2 (05:31→17:40)
[2019-07-12] MEDS: Menthol/Lanolin/Calamine/Znox 113 GM Tube 1 APPLIC TOPICAL ×2 (05:33→22:00)
[2019-07-12] MEDS: Ferrous Sulfate 325 MG Tablet PO ×2 (08:30→17:43)
[2019-07-12] MEDS: Multivitamins,Ther W-Minerals Tablet 1 TABLET PO (08:31)
[2019-07-12 12:44] LABS: Vancomycin, Trough Level 20.6 ug/mL (5.0-15.0)
--- NOTE | 2019-07-12 13:25 | PCM.RX.CS ---
Consult Pharmacy has been consulted to manage selected antiobiotic: Vancomycin Type of Consult: Follow-up Suspected Infection: Other Prior Doses of Antibiotics Received/Current Regimen: Has been receiving 1500mg iv q8h. Labs: Sodium 138 mmol/L (136-145) 07/09/19 14:50 Potassium 4.2 mmol/L (3.5-5.1) 07/09/19 14:50 Chloride 107 mmol/L (98-107) 07/09/19 14:50 Carbon Dioxide 24.0 mmol/L (21.0-32.0) 07/09/19 14:50 Anion Gap 7 (5-15) 07/09/19 14:50 BUN 19 mg/dL (7-18) H 07/09/19 14:50 Creatinine 0.81 mg/dL (0.70-1.30) 07/09/19 14:50 Est GFR (MDRD) Af Amer 123 mL/min (>60) 07/09/19 14:50 Est GFR (MDRD) Non-Af 102 mL/min (>60) 07/09/19 14:50 BUN/Creatinine Ratio 23.5 RATIO (10-20) H 07/09/19 14:50 Glucose 111 mg/dL (74-106) H 07/09/19 14:50 Vancomycin Trough 20.6 ug/mL (5.0-15.0) H 07/12/19 12:00 Microbiology: Microbiology 07/09/19 15:16 Urine, Random Urine Culture - Final Mixed Gram Positive Organisms 07/10/19 18:55 Wound Drainage - Abdominal Gram Stain - Final 07/09/19 14:55 Blood Culture (Wb) - Anticubital Right Blood Culture - Preliminary No growth in 48 hours. 07/09/19 14:50 Blood Culture (Wb) - Anticubital Left Blood Culture - Preliminary No growth in 48 hours. Weight used for dosin kg Estimated Creatinine Clearance: ~100ml/min Goal Trough: 15-20 mcg/mL Pharmacy Plan for Drug Dosing: Trough today was 20.6. Will decrease dose to 1250mg iv q8h and get another Tr level before 4th dose of new regimen. Pharmacy Service will continue to monitor and adjust dosing as required. Follow-Up Labs: Trough Vancomycin - 5.5.20 @2130 before 2200 dose
--- NOTE | 2019-07-12 14:28 | CHAPLAIN ---
Type of Pastoral Visit ___ Initial Visit _x__ Follow-up Visit ___ On-call Visit ___ General Patient Visit ___ Spiritual Assessment ___ Family Conference ___ Bereavement ___ Rapid Response ___ Code Blue ___ Other (describe below) Pastoral Care Referral From _x__ Patient ___ Family ___ Nurse ___ Physician ___ Resistance Welding Machine Operator ___ Heat Treat Worker ___ Other (describe below) Sacrament/Intervention _x__ Active listening ___ Anointing ___ Congregation ___ Bereavement ___ Communion ___ Irene exploration ___ ___ Life review _x__ Prayer ___ Reconciliation ___ Sacrament of Sick _x__ Supportive presence ___ Wedding ___ Other (describe below) Pastoral Comments
--- NOTE | 2019-07-12 15:16 | NURSING ---
Resident peak and trough results 20.6 at 1230. Pharmacist called and given ok to hang 1230 dose of Vancomycin.
[2019-07-12 16:00] VITALS: BP 124/99; PULSE 89; RESP 18; TEMP 36.7; O2SAT 98
[2019-07-12] MEDS: Senna/Docusate Sodium 1 Tablet PO (17:42)
--- NOTE | 2019-07-12 19:33 | NURSING ---
Resident transported to CT scan at 4pm via wheelchair. Resident returned to TCU via wheelchair at 4:30pm. Resident tolerated procedure well.
[2019-07-12] MEDS: Atorvastatin Calcium 80 MG Tablet PO (21:59)
[2019-07-13 06:25] VITALS: BP 122/72; PULSE 92
[2019-07-13] MEDS: Metoprolol(XL)Succ 200 MG Tablet PO (06:25)
[2019-07-13] MEDS: Acetaminophen 500 MG Tablet 1000 MG PO (06:25)
[2019-07-13] MEDS: buPROPion 100 MG Tablet PO ×2 (06:25→17:18)
[2019-07-13] MEDS: busPIRone 15 MG TABLET PO ×2 (06:25→17:19)
[2019-07-13] MEDS: Senna/Docusate Sodium 1 Tablet PO (06:25)
[2019-07-13] MEDS: Pantoprazole Sodium 40 MG Tablet PO (06:26)
[2019-07-13] MEDS: METHIMAZOLE 5 MG TABLET 2.5 MG PO (06:26)
[2019-07-13] MEDS: Menthol/Lanolin/Calamine/Znox 113 GM Tube 1 APPLIC TOPICAL ×2 (06:28→21:12)
[2019-07-13 06:55] LABS: Absolute Lymphocyte Count 0.99 X10^3/uL (0.83-4.51); Absolute Neutrophil Count 7.4 X10^3/uL (2.0-7.7); Basophil# 0.06 X10^3/uL; Basophil% 0.6 % (0-1); Eosinophil# 0.56 X10^3/uL; Eosinophils% 5.7 % (0-5); Hematocrit 25.5 % (40-54); Hemoglobin 8.1 g/dL (13.0-16.5); Lymphocyte # 0.99 X10^3/ul (4.0); Mean Corp Hgb Conc 31.8 g/dL (32-36); Mean Corpuscular Hgb 30.5 pg (27.0-32.0); Mean Corpuscular Volume 95.9 fL (80-94); Mean Platelet Vol. 8.7 fl (6.2-12.0); Monocyte% 8.1 % (0-10); NRBC Flagged by Analyzer 0 % (0-5); Neutrophil # 7.37 X10^3/uL (2.7-7.7); Neutrophil % 74.8 % (47-70); Platelet Count 457 K/mm3 (150-450); RBC Distribution Width CV 14.4 % (11.6-14.6); RBC Distribution Width SD 49.6 fl (35.1-43.9); Red Blood Count 2.66 M/mm3 (4.6-6.2); White Blood Count 9.9 K/mm3 (4.4-11.0)
[2019-07-13 07:04] LABS: Anion Gap 5 (5-15); BUN 12 mg/dL (7-18); BUN/Creat Ratio 15.8 RATIO (10-20); Calcium,Total 8.4 mg/dL (8.5-10.1); Chloride 111 mmol/L (98-107); Creatinine, Serum 0.76 mg/dL (0.70-1.30); EST Glomerular Filtration Rate 109 mL/min (>60); Est Glom Filt Rate - Afr Amer 132 mL/min (>60); Estimated Creatinine Clearance 106.36 ml/min; Glucose 108 mg/dL (74-106); Potassium 4.2 mmol/L (3.5-5.1); Sodium Level 141 mmol/L (136-145)
[2019-07-13] MEDS: Multivitamins,Ther W-Minerals Tablet 1 TABLET PO (08:06)
[2019-07-13] MEDS: Ferrous Sulfate 325 MG Tablet PO ×2 (08:07→17:19)
[2019-07-13] MEDS: Tuberculin,Purif.prot.deriv. 50 TU/ML Vial 5 ML ID (09:33)
--- NOTE | 2019-07-13 10:15 | CON.PCM_ITS ---
Problem List (1) Surgical site infection Status: Acute (2) Abdominal pain Status: Acute Qualifiers: Abdominal location: upper abdomen, unspecified Qualified Code(s): R10.10 - Upper abdominal pain, unspecified Reason for Consult Date of Consultation: 07/13/19 Reason for Consultation: Surgical site infection History of Present Illness: The patient is a 63 year old M who had laparotomy with right hemicolectomy at [facility] approximately 2 weeks ago. The patient has been having redness around his incision and he reports drainage. He is not having any nausea or vomiting. Past Medical History Past Medical History (Chronic Problems): Chronic Problems Body mass index (BMI) 40.0-44.9, adult (Chronic) Obstructive sleep apnea (Chronic) Gastric ulcer (Chronic) Ischemic colitis (Chronic) Coronary artery disease (Chronic) Atrial fibrillation (Chronic) Chronic kidney disease (Chronic) Osteoarthritis (Chronic) Hyperthyroidism (Chronic) Chronic systolic (congestive) heart failure (Chronic) Hypertension (Chronic) Hyperlipidemia (Chronic) Kidney stone (Chronic) Depression (Chronic) Allergies Penicillins [PCN] Allergy (Verified 07/05/19 23:59) Swelling Home Medications: Ambulatory Orders Medication Instructions Recorded Atorvastatin Calcium 80 mg PO QHS 07/05/19 Clopidogrel Bisulfate [Clopidogrel] 75 mg PO DAILY 07/05/19 Methimazole [Tapazole] 2.5 mg PO DAILY 07/05/19 Metoprolol Succinate 200 mg PO DAILY 07/05/19 Multivitamin with Minerals 1 ea PO DAILY 07/05/19 [Multiple Vitamin] Nitroglycerin (INPATIENT USE) 0.4 mg SUBLINGUAL Q5M PRN 07/05/19 [Nitrostat] Potassium Chloride [Klor-Con M20] 20 meq PO DAILY 07/05/19 Rivaroxaban [Xarelto] 15 mg PO DAILY 07/05/19 buPROPion tablets [Wellbutrin 100 mg PO BID 07/05/19 tablets] busPIRone [Buspar] 15 mg PO BID 07/05/19 Acetaminophen [Tylenol] 1,000 mg PO Q6H PRN PRN tab 07/09/19 Ferrous Sulfate 325 mg PO BIDCM #60 tab 07/09/19 Menthol/Lanolin/Calamine/Znox 1 applic TOPICAL 0600,2200 tube 07/09/19 [Calmoseptine Ointment] Mineral Oil/Petrolatum,White 1 applic TOPICAL 2200 jar 07/09/19 [Eucerin] Nutritional Supplement [Wayne - 1 packet PO BIDCM #60 packet 07/09/19 ORANGE FLAVOR] Oxycodone [Oxyir] 5 mg PO Q4H PRN PRN 7 Days #42 tab 07/09/19 Pantoprazole Sodium [Protonix] 40 mg PO DAILY #30 tab 07/09/19 Polyethylene Glycol 3350 [Miralax] 17 gm PO DAILY #30 packet 07/09/19 Senna/Docusate Sodium [Senokot-S] 1 tab PO BID #60 tab 07/09/19 Cefdinir [Omnicef [equiv]] 300 mg PO Q12H #12 cap 07/12/19 Smz/Tmp Ds [Bactrim Ds] 1 tab PO BID #12 tab 07/12/19 Surgical History: adenoidectomy, coronary bypass surgery - x 5., herniorrhaphy - Epigastric hernia., tonsillectomy, - - Cervical fusion, Knee arthroscopy, Ureteral stent placement. Psychiatric History: Depression Lives: Alone Smoking Status: Former smoker Tobacco Use: Cigars Alcohol: None Drugs: None - *Family History Maternal History Items: Cancer Paternal History Items: Dementia, Heart Disease, Hypertension, - - Thryoid disease. Sibling History Items: Cancer, Diabetes, Heart Disease Review of Systems Constitutional: Denies: Anorexia, Fever HEENT: Denies: Difficulty Swallowing Respiratory: Denies: Cough, Shortness of Breath Gastrointestinal: Reports: Abdominal Pain. Denies: Nausea, Vomiting Patient Problems: Active and Suspected Problems Debility (Acute) Abdominal pain (Acute) Pneumoperitoneum (Acute) Large bowel obstruction (Acute) Cecum perforation (Acute) Surgical site infection (Acute) - Physical Exam Vitals/I&O's: Vital Signs Temp Pulse Resp BP Pulse Ox 98.1 F 92 18 122/72 H 98 07/12/19 16:00 07/13/19 06:25 07/12/19 16:00 07/13/19 06:25 07/12/19 16:00 Oxygen Delivery Method Room Air Weight: 337 lb 1.388 oz Body Mass Index (BMI) 45.7 Intake and Output for Last 24 Hours 07/11/19 07/12/19 07/13/19 23:59 23:59 23:59 Intake Total 3480 / 3480 0 / 0 1030 / 1030 Output Total 500 / 500 Balance 2980 / 2980 2670 / 2670 1030 / 1030 General: Alert, Oriented x3 Neck: No JVD Lungs: Normal air movement Cardiovascular: Regular rate, Regular Rhythm Abdomen: Soft, Obese, - - Erythema around the incision in the superior and inferior portion Skin: No rashes Musculoskeletal: No Muscle Wasting Neurological: Cranial nerves II-XII grossly intact, Deep Tendon Reflexes 2+/4 and Symmetrical Psych/Mental Status: Normal Affect Microbiology Past 72 Hours 07/09/19 15:16 Urine, Random Urine Culture - Final Mixed Gram Positive Organisms 07/10/19 18:55 Wound Drainage - Abdominal Gram Stain - Final 07/09/19 14:55 Blood Culture (Wb) - Anticubital Right Blood Culture - Preliminary No growth in 48 hours. 07/09/19 14:50 Blood Culture (Wb) - Anticubital Left Blood Culture - Preliminary No growth in 48 hours. Laboratory Results 07/12/19 12:00: Vancomycin Trough 20.6 H 07/13/19 06:15: WBC 9.9, RBC 2.66 L, Hgb 8.1 L, Hct 25.5 L, MCV 95.9 H, MCH 30.5, MCHC 31.8 L, RDW Std Deviation 49.6 H, RDW Coeff of Trev 14.4, Plt Count 457 H, MPV 8.7, Immature Gran % (Auto) 0.800, Neut % (Auto) 74.8 H, Lymph % (Auto) 10.0 L, Harper % (Auto) 8.1, Eos % (Auto) 5.7 H, Baso % (Auto) 0.6, Absolute Neuts (auto) 7.4, Absolute Lymphs (auto) 0.99, Nucleated RBC % 0 07/13/19 06:15: Sodium 141, Potassium 4.2, Chloride 111 H, Carbon Dioxide 25.0, Anion Gap 5, BUN 12, Creatinine 0.76, Estim Creat Clear Calc 106.36, Est GFR (MDRD) Af Amer 132, Est GFR (MDRD) Non-Af 109, BUN/Creatinine Ratio 15.8, Glucose 108 H, Calcium 8.4 L Current Medications Acetaminophen (Tylenol) 1,000 mg PO Q6H PRN PRN PRN Reason: pain 1-3/10 Last Admin: 07/13/19 06:25 Dose: 1,000 mg Documented by: Atorvastatin Calcium (Lipitor) 80 mg PO QHS [facility] Last Admin: 07/12/19 21:59 Dose: 80 mg Documented by: Bisacodyl (Dulcolax) 10 mg PO DAILY PRN PRN PRN Reason: Constipation Bupropion HCl (Wellbutrin Tablets) 100 mg PO BID [facility] Last Admin: 07/13/19 06:25 Dose: 100 mg Documented by: Buspirone HCl (Buspar) 15 mg PO BID [facility] Last Admin: 07/13/19 06:25 Dose: 15 mg Documented by: Calamine/Phenol (Calmoseptine Ointment) 1 applic TOPICAL 0600,2200 [facility]; Protocol Last Admin: 07/13/19 06:28 Dose: 1 applicatio Documented by: Cholecalciferol (Vitamin D (25mcg)) [facility] Last Admin: 07/13/19 08:08 Dose: 2,000 unit Documented by: Clopidogrel Bisulfate (Plavix) 75 mg PO DAILY [facility] Last Admin: 07/12/19 05:29 Dose: 75 mg Documented by: Ferrous Sulfate (Ferrous Sulfate) 325 mg PO BIDCM [facility] Last Admin: 07/13/19 08:07 Dose: 325 mg Documented by: Ceftriaxone Sodium 2 gm/ (Sodium Chloride) 50 mls @ 100 mls/hr IV Q24 [facility] Stop: 07/13/19 18:00 Last Admin: 07/13/19 09:32 Dose: 100 mls/hr Documented by: Vancomycin IV Pharmacy to Dose (1 ea/ Sodium Chloride) 500 mls @ 250 mls/hr IV PRN PRN; Protocol PRN Reason: Rx to Dose Vancomycin HCl 1,250 mg/ (Sodium Chloride) 275 mls @ 167 mls/hr IV Q8H [facility] Stop: 07/14/19 18:00 Last Infusion: 07/13/19 08:30 Dose: Infused Documented by: Sodium Chloride () 250 mls @ 15 mls/hr IV .[id number] PRN PRN Reason: Saline Flush Sodium Chloride () 250 mls @ 15 mls/hr IV .[id number] PRN PRN Reason: Additional IVPB Infusion Methimazole (Tapazole) 2.5 mg PO DAILY [facility] Last Admin: 07/13/19 06:26 Dose: 2.5 mg Documented by: Metoprolol Succinate (Toprol Xl (Beta Sari)) 200 mg PO DAILY [facility] Last Admin: 07/13/19 06:25 Dose: 200 mg Documented by: Multi-Ingredient Cream (Eucerin) 1 applic TOPICAL 2200 [facility]; Protocol Last Admin: 07/12/19 21:59 Dose: 1 applicatio Documented by: Multivitamins/Minerals (Multivitamin With Minerals (Bkc)) 1 tablet PO DAILY@0800 [facility] Last Admin: 07/13/19 08:06 Dose: 1 tablet Documented by: Nitroglycerin (Nitrostat) 0.4 mg SUBLINGUAL Q5M PRN PRN Reason: CHEST Nutritional Formula (Wayne - [place] Flavor) [facility] Last Admin: 07/13/19 08:07 Dose: 1 packet Documented by: Oxycodone HCl (Oxyir) 5 mg PO Q4H PRN PRN PRN Reason: Pain Score 4-10/10 Last Admin: 07/12/19 21:59 Dose: 5 mg Documented by: Pantoprazole Sodium (Protonix) 40 mg PO DAILY [facility] Last Admin: 07/13/19 06:26 Dose: 40 mg Documented by: Polyethylene Glycol (Miralax) 17 gm PO DAILY [facility] Last Admin: 07/13/19 06:26 Dose: Not Given Documented by: Potassium Chloride (K-Dur) 20 me[facility] Last Admin: 07/13/19 08:09 Dose: 20 meq Documented by: Rivaroxaban (Xarelto) 15 mg PO DAILY [facility] Last Admin: 07/12/19 05:31 Dose: 15 mg Documented by: Senna/Docusate Sodium (Senokot-S, Kareen-Colace) 1 tablet PO BID [facility] Last Admin: 07/13/19 06:25 Dose: 1 tablet Documented by: Sodium Chloride () 10 - 40 ml IV UD PRN PRN Reason: SALINE FLUSH Last Admin: 07/11/19 21:14 Dose: 20 ml Documented by: Sodium Chloride () 10 - 40 ml IV UD PRN PRN Reason: SALINE FLUSH Sodium Chloride () 10 - 40 ml IV UD PRN PRN Reason: SALINE FLUSH Assessment/Plan All Active Problems Debility (Acute) Abdominal pain (Acute) Pneumoperitoneum (Acute) Large bowel obstruction (Acute) Cecum perforation (Acute) Surgical site infection (Acute) 63-year-old male with superficial surgical site infection 1. The patient had a CT scan performed which shows a surgical site infection in the subcutaneous space. This does communicate with the peritoneal cavity per the CT scan. The patient's anastomosis is directly underlying this area. 2. I remove the reba at the superior aspect of his incision and open his skin and drain the fluid. It was thin but purulent. It was cultured and sent. The cavity was cleansed and packed with a dry Kerlix gauze. The patient also had erythema at the inferior portion of his incision but there was no fluid collection in this area on CT scan. 3. At this time I recommend continuing twice daily packing changes and antibiotics. If the drainage continues to be copious and indicative of a fistula I would recommend transfer back to [facility] where he had his original surgery. He will need his anastomosis revised. If the drainage decreases and begins to clear with antibiotics and packing changes then it may a subcutaneous abscess that does not communicate with the anastomosis. In that case packing changes and antibiotics should resolve this. At this time the fascia appears to be intact. Kenny Sharma MD Pager: [facility] [address] [place] [address] [address] [place] [address] Office:
[2019-07-13] MEDS: 0.9% Saline Lock 10 ML Syringe IV ×3 (10:18→22:53)
[2019-07-13 13:00] VITALS: BP 129/63; PULSE 103; RESP 18; TEMP 36.6; O2SAT 100
[2019-07-13 14:20] VITALS: BP 126/76; PULSE 75; RESP 17; TEMP 36.7; O2SAT 98
--- NOTE | 2019-07-13 14:34 | CASEMGMT ---
Social Work Provided card of prayers and encouragement from community member to pt. Pt appreciative. Rhianna Triplett, REUSE TECHNICIAN TRUST VAULT CLERK
[2019-07-13] MEDS: oxyCODONE 5 MG Tablet PO (21:11)
[2019-07-13] MEDS: Atorvastatin Calcium 80 MG Tablet PO (21:11)
[2019-07-13 22:15] LABS: Vancomycin, Trough Level 20.8 ug/mL (5.0-15.0)
--- NOTE | 2019-07-13 23:40 | PCM.RX.CS ---
Consult Pharmacy has been consulted to manage selected antiobiotic: Vancomycin Type of Consult: Follow-up Suspected Infection: Other Prior Doses of Antibiotics Received/Current Regimen: Medications Vancomycin HCl 1,250 mg/ (Sodium Chloride) 275 mls @ 167 mls/hr IV Q8H [facility] Stop: 07/14/19 18:00 Last Admin: 07/13/19 22:53 Dose: 167 mls/hr Labs: Sodium 141 mmol/L (136-145) 07/13/19 06:15 Potassium 4.2 mmol/L (3.5-5.1) 07/13/19 06:15 Chloride 111 mmol/L (98-107) H 07/13/19 06:15 Carbon Dioxide 25.0 mmol/L (21.0-32.0) 07/13/19 06:15 Anion Gap 5 (5-15) 07/13/19 06:15 BUN 12 mg/dL (7-18) 07/13/19 06:15 Creatinine 0.76 mg/dL (0.70-1.30) 07/13/19 06:15 Est GFR (MDRD) Af Amer 132 mL/min (>60) 07/13/19 06:15 Est GFR (MDRD) Non-Af 109 mL/min (>60) 07/13/19 06:15 BUN/Creatinine Ratio 15.8 RATIO (10-20) 07/13/19 06:15 Glucose 108 mg/dL (74-106) H 07/13/19 06:15 Vancomycin Trough 20.8 ug/mL (5.0-15.0) H 07/13/19 21:47 Microbiology: Microbiology 07/09/19 15:16 Urine, Random Urine Culture - Final Mixed Gram Positive Organisms 07/10/19 18:55 Wound Drainage - Abdominal Gram Stain - Final 07/09/19 14:55 Blood Culture (Wb) - Anticubital Right Blood Culture - Preliminary No growth in 48 hours. 07/09/19 14:50 Blood Culture (Wb) - Anticubital Left Blood Culture - Preliminary No growth in 48 hours. Weight used for dosin.9 kg Estimated Creatinine Clearance: 106 Goal Trough: 15-20 mcg/mL Pharmacy Plan for Drug Dosing: Vancomycin trough level was 20.8, just slightly higher than goal. Will continue same dose of 1250mg q8h for remainder of therapy which is scheduled to discontinue 5/6/20 @1800, as originally ordered. Pharmacy Service will continue to monitor and adjust dosing as required.
[2019-07-14] MEDS: 0.9% Saline Lock 10 ML Syringe IV ×4 (00:12→22:09)
[2019-07-14 06:01] VITALS: BP 129/85; PULSE 123
[2019-07-14] MEDS: Pantoprazole Sodium 40 MG Tablet PO (06:01)
[2019-07-14] MEDS: METHIMAZOLE 5 MG TABLET 2.5 MG PO (06:01)
[2019-07-14] MEDS: Metoprolol(XL)Succ 200 MG Tablet PO (06:01)
[2019-07-14] MEDS: buPROPion 100 MG Tablet PO ×2 (06:01→17:39)
[2019-07-14] MEDS: busPIRone 15 MG TABLET PO ×2 (06:02→17:39)
[2019-07-14] MEDS: Menthol/Lanolin/Calamine/Znox 113 GM Tube 1 APPLIC TOPICAL ×2 (06:04→22:06)
[2019-07-14] MEDS: Multivitamins,Ther W-Minerals Tablet 1 TABLET PO (08:24)
[2019-07-14] MEDS: Ferrous Sulfate 325 MG Tablet PO ×2 (08:24→17:39)
--- NOTE | 2019-07-14 08:30 | PN.SURG_ITS ---
Patient Problems: Active and Suspected Problems Debility (Acute) Abdominal pain (Acute) Pneumoperitoneum (Acute) Large bowel obstruction (Acute) Cecum perforation (Acute) Surgical site infection (Acute) Subjective: Patient reports no changes overnight - Physical Exam Vitals/I&O's: Vital Signs Temp Pulse Resp BP Pulse Ox 98.1 F 123 H 17 129/85 H 98 07/13/19 14:20 07/14/19 06:01 07/13/19 14:20 07/14/19 06:01 07/13/19 14:20 Oxygen Delivery Method Room Air Weight: 337 lb 1.388 oz Body Mass Index (BMI) 45.7 Intake and Output for Last 24 Hours 07/12/19 07/13/19 07/14/19 23:59 23:59 23:59 Intake Total 2670 / 2670 2195 / 2195 275 / 275 Output Total 1400 / 1400 Balance 2670 / 2670 795 / 795 275 / 275 General: Alert, Oriented x3 Neck: No JVD Lungs: Normal air movement Abdomen: Soft, Non-Distended Microbiology Past 72 Hours 07/09/19 15:16 Urine, Random Urine Culture - Final Mixed Gram Positive Organisms 07/10/19 18:55 Wound Drainage - Abdominal Gram Stain - Final 07/09/19 14:55 Blood Culture (Wb) - Anticubital Right Blood Culture - Preliminary No growth in 48 hours. 07/09/19 14:50 Blood Culture (Wb) - Anticubital Left Blood Culture - Preliminary No growth in 48 hours. Laboratory Results 07/13/19 11:37: COVID-19 (NATHALY) Pending 07/13/19 21:47: Vancomycin Trough 20.8 H Current Medications Acetaminophen (Tylenol) 1,000 mg PO Q6H PRN PRN PRN Reason: pain 1-05/17 Last Admin: 07/13/19 06:25 Dose: 1,000 mg Documented by: Atorvastatin Calcium (Lipitor) 80 mg PO QHS [facility] Last Admin: 07/13/19 21:11 Dose: 80 mg Documented by: Bisacodyl (Dulcolax) 10 mg PO DAILY PRN PRN PRN Reason: Constipation Bupropion HCl (Wellbutrin Tablets) 100 mg PO BID [facility] Last Admin: 07/14/19 06:01 Dose: 100 mg Documented by: Buspirone HCl (Buspar) 15 mg PO BID [facility] Last Admin: 07/14/19 06:02 Dose: 15 mg Documented by: Calamine/Phenol (Calmoseptine Ointment) 1 applic TOPICAL 0600,2199 [facility]; Protocol Last Admin: 07/14/19 06:04 Dose: 1 applicatio Documented by: Cholecalciferol (Vitamin D (25mcg)) 2,000 unit PO BIDCM [facility] Last Admin: 07/13/19 17:17 Dose: 2,000 unit Documented by: Clopidogrel Bisulfate (Plavix) 75 mg PO DAILY [facility] Last Admin: 07/12/19 05:29 Dose: 75 mg Documented by: Ferrous Sulfate (F[facility] Sulfate) [facility] Last Admin: 07/13/19 17:19 Dose: 325 mg Documented by: Vancomycin IV Pharmacy to Dose (1 ea/ Sodium Chloride) 500 mls @ 250 mls/hr IV PRN PRN; Protocol PRN Reason: Rx to Dose Vancomycin HCl 1,250 mg/ (Sodium Chloride) 275 mls @ 167 mls/hr IV Q8H [facility] Stop: 07/22/19 22:01 Last Admin: 07/14/19 06:05 Dose: 167 mls/hr Documented by: Sodium Chloride () 250 mls @ 15 mls/hr IV .[id number] PRN PRN Reason: Saline Flush Last Infusion: 07/14/19 00:15 Dose: 0 mls/hr Documented by: Sodium Chloride () 250 mls @ 15 mls/hr IV .[id number] PRN PRN Reason: Additional IVPB Infusion Ceftriaxone Sodium 2 gm/ (Sodium Chloride) 50 mls @ 100 mls/hr IV Q24 [facility] Stop: 07/22/19 23:59 Methimazole (Tapazole) 2.5 mg PO DAILY [facility] Last Admin: 07/14/19 06:01 Dose: 2.5 mg Documented by: Metoprolol Succinate (Toprol Xl (Beta Sari)) 200 mg PO DAILY [facility] Last Admin: 07/14/19 06:01 Dose: 200 mg Documented by: Multi-Ingredient Cream (Eucerin) 1 applic TOPICAL 2199 [facility]; Protocol Last Admin: 07/13/19 21:12 Dose: 1 applicatio Documented by: Multivitamins/Minerals (Multivitamin With Minerals (Bkc)) 1 tablet PO DAILY@0800 [facility] Last Admin: 07/13/19 08:06 Dose: 1 tablet Documented by: Nitroglycerin (Nitrostat) 0.4 mg SUBLINGUAL Q5M PRN PRN Reason: CHEST Nutritional Formula (Wayne - [place] Flavor) [facility] Last Admin: 07/13/19 17:16 Dose: 1 packet Documented by: Oxycodone HCl (Oxyir) 5 mg PO Q4H PRN PRN PRN Reason: Pain Score 4-10/10 Last Admin: 07/13/19 21:11 Dose: 5 mg Documented by: Pantoprazole Sodium (Protonix) 40 mg PO DAILY [facility] Last Admin: 07/14/19 06:01 Dose: 40 mg Documented by: Polyethylene Glycol (Miralax) 17 gm PO DAILY [facility] Last Admin: 07/14/19 06:04 Dose: Not Given Documented by: Potassium Chloride (K-Dur) [facility] Last Admin: 07/13/19 08:09 Dose: 20 meq Documented by: Rivaroxaban (Xarelto) 15 mg PO DAILY [facility] Last Admin: 07/12/19 05:31 Dose: 15 mg Documented by: Senna/Docusate Sodium (Senokot-S, Kareen-Colace) 1 tablet PO BID [facility] Last Admin: 07/14/19 06:04 Dose: Not Given Documented by: Sodium Chloride () 10 - 40 ml IV UD PRN PRN Reason: SALINE FLUSH Last Admin: 07/14/19 00:12 Dose: 20 ml Documented by: Sodium Chloride () 10 - 40 ml IV UD PRN PRN Reason: SALINE FLUSH Sodium Chloride () 10 - 40 ml IV UD PRN PRN Reason: SALINE FLUSH Medical Necessity - Tobacco Use Smoking Status: Former smoker Tobacco Use: Cigars Assessment/Plan All Active Problems Debility (Acute) Abdominal pain (Acute) Pneumoperitoneum (Acute) Large bowel obstruction (Acute) Cecum perforation (Acute) Surgical site infection (Acute) 63-year-old male with superficial surgical site infection 1. Patient had continue dressing changes throughout the day yesterday. His drainage is turned to serosanguineous and his cellulitis of the upper wound is improving. There is no continued purulent or enteric drainage. I recommend continuing wet-to-dry packing changes and continuing antibiotics. I have consulted the wound RN to help with dressings and for consideration of wound VAC once fistula has been ruled out. Kenny Sharma MD Pager: [facility] [address] [place] [phone] [place] [address] Office:
--- NOTE | 2019-07-14 09:55 | NURSING ---
Contacted linoleum tile floor layer, waiting for return call for time they will be coming to place PICC.
--- NOTE | 2019-07-14 10:27 | CASEMGMT ---
Social Work IDT met with patient and son via conference call for care plan meeting. Discussed patient's progress in therapy. Pt sleeps in chair, transfers mod I with FWW, ambulating with FWW at 80 ft mod I. Pt is adlib in room, set up for grooming, mod for bathing, set up for UE dressing, mod assist for LE dressing, min assist for toilet hygiene. Pt receiving 1:1 visits from activities and participate in self-directed activities. Pt on regular, low fiber diet, good intake. Pt received COVID swab 07/12 - awaiting results. Pt out of room isolation 07/18. On IV ATB until 07/21, will get PICC placed, and wound vac placed. Requesting auth extension from On license of [facility]. Will await outcome as pt cannot return home on this date. Will continue to follow. PANTERA ValdezW
--- NOTE | 2019-07-14 10:33 | NURSING ---
Patient spoke with family and provided updates
--- NOTE | 2019-07-14 12:22 | RAD_ITS ---
STUDY: X-RAY CHEST REASON FOR EXAM: Male, 63 years old. PICC PLACEMENT TECHNIQUE: Single AP portable view of the chest. COMPARISON: None. FINDINGS: A right-sided PICC line catheter is seen with the tip in the proximal portion of the superior vena cava. There is a 2.3 cm x 1 mm linear opacity overlying the left lung apex. This may represent residual piece of guidewire from prior intervention. The lungs are clear and expanded. There is no demonstrated pleural abnormality. Sternal cerclage wires and vascular clips are present from a prior sternotomy and coronary artery bypass graft procedure (CABG). Moderate cardiomegaly. Normal mediastinum and bhupinder. Normal visualized pulmonary arteries. There is atherosclerotic tortuosity of the aortic arch and descending thoracic aorta. Normal visualized thoracic spine. Normal visualized ribs, clavicles, and shoulders. There is no demonstrated abnormality of the visualized soft tissue structures of the upper abdomen. RAD/CXR for Line Placement IMPRESSION: Prior CABG. The tip of the right PICC line catheter is in the proximal portion of the superior vena cava. Electronically Signed: Regino Herring, at 13:27 EDT , Service support ,
[2019-07-14 14:57] VITALS: BP 111/65; PULSE 119; RESP 16; TEMP 36.3; O2SAT 97
--- NOTE | 2019-07-14 15:59 | NURSING ---
wound photo: abdomen
--- NOTE | 2019-07-14 16:00 | NURSING ---
wound photo: abdomen
--- NOTE | 2019-07-14 16:51 | CASEMGMT ---
Social Work Insurance approved pt with NRD 07/19. Notified IDT, pt and son. Will continue to follow. Rhianna Triplett, JURY CONSULTANT GUARD CHIEF
[2019-07-14] MEDS: Atorvastatin Calcium 80 MG Tablet PO (22:07)
[2019-07-14] MEDS: oxyCODONE 5 MG Tablet PO (22:16)
[2019-07-15] MEDS: busPIRone 15 MG TABLET PO ×2 (04:24→17:08)
[2019-07-15] MEDS: buPROPion 100 MG Tablet PO ×2 (04:24→17:09)
[2019-07-15] MEDS: METHIMAZOLE 5 MG TABLET 2.5 MG PO (04:24)
[2019-07-15] MEDS: Pantoprazole Sodium 40 MG Tablet PO (04:24)
[2019-07-15 04:25] VITALS: BP 117/73; PULSE 102
[2019-07-15] MEDS: Metoprolol(XL)Succ 200 MG Tablet PO (04:25)
[2019-07-15] MEDS: Menthol/Lanolin/Calamine/Znox 113 GM Tube 1 APPLIC TOPICAL ×2 (04:36→22:38)
[2019-07-15] MEDS: 0.9% Saline Lock 10 ML Syringe IV ×5 (06:24→22:29)
[2019-07-15] MEDS: Multivitamins,Ther W-Minerals Tablet 1 TABLET PO (09:04)
[2019-07-15] MEDS: Ferrous Sulfate 325 MG Tablet PO ×2 (09:05→17:07)
[2019-07-15] MEDS: Acetaminophen 500 MG Tablet 1000 MG PO (09:12)
--- NOTE | 2019-07-15 09:49 | MDS.RN ---
Information for the mds was obtained from review of the clinical record, interview of resident, staff, and direct observation of resident's care.
--- NOTE | 2019-07-15 09:55 | PN.SURG_ITS ---
Patient Problems: Active and Suspected Problems Debility (Acute) Abdominal pain (Acute) Pneumoperitoneum (Acute) Large bowel obstruction (Acute) Cecum perforation (Acute) Surgical site infection (Acute) Subjective: No changes yesterday. Patient is doing well with no abdominal pain - Physical Exam Vitals/I&O's: Vital Signs Temp Pulse Resp BP Pulse Ox 97.3 F L 102 H 16 117/73 97 07/14/19 14:57 07/15/19 04:25 07/14/19 14:57 07/15/19 04:25 07/14/19 14:57 Oxygen Delivery Method Room Air Weight: 337 lb 1.388 oz Body Mass Index (BMI) 45.7 Intake and Output for Last 24 Hours 07/13/19 07/14/19 07/15/19 23:59 23:59 23:59 Intake Total 2195 / 2195 2110 / 0 895 / 895 Output Total 1400 / 1400 450 / 450 Balance 795 / 795 2109 / 0 445 / 445 General: Alert, Oriented x3 Lungs: Normal air movement Cardiovascular: Regular rate, Regular Rhythm Abdomen: Soft, Non-Distended Microbiology Past 72 Hours 07/14/19 12:49 Mucosa - Nasopharyngeal Coronavirus COVID-19 PCR - Final 07/09/19 14:55 Blood Culture (Wb) - Anticubital Right Blood Culture - Final No growth in 5 days. 07/09/19 14:50 Blood Culture (Wb) - Anticubital Left Blood Culture - Final No growth in 5 days. 07/13/19 10:00 Wound - Abdominal Gram Stain - Final 07/13/19 10:00 Wound - Abdominal Wound Culture - Preliminary No growth-Final to follow 07/09/19 15:16 Urine, Random Urine Culture - Final Mixed Gram Positive Organisms Laboratory Results 07/14/19 12:49: COVID-19 (NATHALY) Cancelled Current Medications Acetaminophen (Tylenol) 1,000 mg PO Q6H PRN PRN PRN Reason: pain 1-05/17 Last Admin: 07/15/19 09:12 Dose: 1,000 mg Documented by: Atorvastatin Calcium (Lipitor) 80 mg PO QHS [facility] Last Admin: 07/14/19 22:07 Dose: 80 mg Documented by: Bisacodyl (Dulcolax) 10 mg PO DAILY PRN PRN PRN Reason: Constipation Bupropion HCl (Wellbutrin Tablets) 100 mg PO BID [facility] Last Admin: 07/15/19 04:24 Dose: 100 mg Documented by: Buspirone HCl (Buspar) 15 mg PO BID [facility] Last Admin: 07/15/19 04:24 Dose: 15 mg Documented by: Calamine/Phenol (Calmoseptine Ointment) 1 applic TOPICAL 0600,2200 [facility]; Protocol Last Admin: 07/15/19 04:36 Dose: 1 applicatio Documented by: Cholecalciferol (Vitamin D (25mcg)) [facility] Last Admin: 07/15/19 09:05 Dose: 2,000 unit Documented by: Clopidogrel Bisulfate (Plavix) 75 mg PO DAILY [facility] Last Admin: 07/12/19 05:29 Dose: 75 mg Documented by: Ferrous Sulfate (Ferrous Sulfate) [facility] Last Admin: 07/15/19 09:05 Dose: 325 mg Documented by: Vancomycin IV Pharmacy to Dose (1 ea/ Sodium Chloride) 500 mls @ 250 mls/hr IV PRN PRN; Protocol PRN Reason: Rx to Dose Vancomycin HCl 1,250 mg/ (Sodium Chloride) 275 mls @ 167 mls/hr IV Q8H [facility] Stop: 07/22/19 22:01 Last Infusion: 07/15/19 08:41 Dose: Infused Documented by: Sodium Chloride () 250 mls @ 15 mls/hr IV .[id number] PRN PRN Reason: Saline Flush Last Infusion: 07/14/19 10:30 Dose: 15 mls/hr Documented by: Sodium Chloride () 250 mls @ 15 mls/hr IV .[id number] PRN PRN Reason: Additional IVPB Infusion Ceftriaxone Sodium 2 gm/ (Sodium Chloride) 50 mls @ 100 mls/hr IV Q24 [facility] Stop: 07/22/19 23:59 Last Infusion: 07/14/19 10:35 Dose: Infused Documented by: Methimazole (Tapazole) 2.5 mg PO DAILY [facility] Last Admin: 07/15/19 04:24 Dose: 2.5 mg Documented by: Metoprolol Succinate (Toprol Xl (Beta Sari)) 200 mg PO DAILY [facility] Last Admin: 07/15/19 04:25 Dose: 200 mg Documented by: Multi-Ingredient Cream (Eucerin) 1 applic TOPICAL 2200 [facility]; Protocol Last Admin: 07/14/19 22:06 Dose: 1 applicatio Documented by: Multivitamins/Minerals (Multivitamin With Minerals (Bkc)) 1 tablet PO DAILY@0800 [facility] Last Admin: 07/15/19 09:04 Dose: 1 tablet Documented by: Nitroglycerin (Nitrostat) 0.4 mg SUBLINGUAL Q5M PRN PRN Reason: CHEST Nutritional Formula ([place] - [place] Flavor) [facility] Last Admin: 07/15/19 09:04 Dose: 1 packet Documented by: Oxycodone HCl (Oxyir) 5 mg PO Q4H PRN PRN PRN Reason: Pain Score 4-10/10 Last Admin: 07/14/19 22:16 Dose: 5 mg Documented by: Pantoprazole Sodium (Protonix) 40 mg PO DAILY [facility] Last Admin: 07/15/19 04:24 Dose: 40 mg Documented by: Polyethylene Glycol (Miralax) 17 gm PO DAILY [facility] Last Admin: 07/15/19 04:36 Dose: Not Given Documented by: Potassium Chloride (K-Dur) [facility] Last Admin: 07/15/19 09:04 Dose: 20 meq Documented by: Rivaroxaban (Xarelto) 15 mg PO DAILY [facility] Last Admin: 07/12/19 05:31 Dose: 15 mg Documented by: Senna/Docusate Sodium (Senokot-S, Kareen-Colace) 1 tablet PO BID [facility] Last Admin: 07/15/19 04:37 Dose: Not Given Documented by: Sodium Chloride () 10 - 40 ml IV UD PRN PRN Reason: SALINE FLUSH Last Admin: 07/15/19 06:24 Dose: 30 ml Documented by: Sodium Chloride () 10 - 40 ml IV UD PRN PRN Reason: SALINE FLUSH Sodium Chloride () 10 - 40 ml IV UD PRN PRN Reason: SALINE FLUSH Medical Necessity - Tobacco Use Smoking Status: Former smoker Tobacco Use: Cigars Assessment/Plan All Active Problems Debility (Acute) Abdominal pain (Acute) Pneumoperitoneum (Acute) Large bowel obstruction (Acute) Cecum perforation (Acute) Surgical site infection (Acute) 63-year-old male with superficial surgical site infection 1. Patient's packing was changed and it continues to be serosanguineous with no succus or purulent discharge. He still has some cellulitis at the inferior portion of the incision and I did remove every other staple throughout his incision with no further drainage. Continue packing changes and antibiotics. I have a low suspicion for fistula at this point with decreased output from the wound. Kenny Sharma MD Pager: [facility] [address] [place] [id number] [address] [place] [address] Office:
[2019-07-15 14:28] VITALS: BP 102/63; PULSE 97; RESP 16; TEMP 36; O2SAT 96
[2019-07-15] MEDS: Atorvastatin Calcium 80 MG Tablet PO (22:37)
[2019-07-16] MEDS: 0.9% Saline Lock 10 ML Syringe IV ×2 (05:13→09:50)
[2019-07-16 05:14] VITALS: BP 120/69; PULSE 93
[2019-07-16] MEDS: buPROPion 100 MG Tablet PO ×2 (05:14→16:57)
[2019-07-16] MEDS: Pantoprazole Sodium 40 MG Tablet PO (05:14)
[2019-07-16] MEDS: Rivaroxaban 15 MG Tablet PO (05:14)
[2019-07-16] MEDS: Metoprolol(XL)Succ 200 MG Tablet PO (05:14)
[2019-07-16] MEDS: Menthol/Lanolin/Calamine/Znox 113 GM Tube 1 APPLIC TOPICAL ×2 (05:15→19:48)
[2019-07-16] MEDS: METHIMAZOLE 5 MG TABLET 2.5 MG PO (05:15)
[2019-07-16] MEDS: busPIRone 15 MG TABLET PO ×2 (05:15→16:57)
[2019-07-16] MEDS: Clopidogrel Bisulfate 75 MG Tablet PO (05:16)
[2019-07-16] MEDS: Ferrous Sulfate 325 MG Tablet PO ×2 (08:12→16:57)
[2019-07-16] MEDS: Multivitamins,Ther W-Minerals Tablet 1 TABLET PO (08:13)
[2019-07-16 08:29] LABS: Creatinine, Serum 0.84 mg/dL (0.70-1.30); EST Glomerular Filtration Rate 97 mL/min (>60); Est Glom Filt Rate - Afr Amer 117 mL/min (>60); Estimated Creatinine Clearance 96.23 ml/min
--- NOTE | 2019-07-16 11:48 | NURSING ---
Dr Arias in to see pt, instructed pt that he can take a shower and soap/water over incisions will be good for them. Wants peroxide used around sites during drsg changes. Occupational therapy will assist pt with shower today at 1300
[2019-07-16 11:59] VITALS: PULSE 110; RESP 18; O2SAT 98
--- NOTE | 2019-07-16 13:22 | PCM.PN.SRG ---
Patient Problems: Active and Suspected Problems Debility (Acute) Abdominal pain (Acute) Pneumoperitoneum (Acute) Large bowel obstruction (Acute) Cecum perforation (Acute) Surgical site infection (Acute) Subjective: Patient states he is feeling much better. Pain is significantly improved. Objective: Minimal to no erythema is identified. - Physical Exam Vitals/I&O's: Vital Signs Temp Pulse Resp BP Pulse Ox 96.8 F L 110 H 18 120/69 98 07/15/19 14:28 07/16/19 11:59 07/16/19 11:59 07/16/19 05:14 07/16/19 11:59 Oxygen Delivery Method Room Air Weight: 337 lb 1.388 oz Body Mass Index (BMI) 45.7 Intake and Output for Last 24 Hours 07/14/19 07/15/19 07/16/19 23:59 23:59 23:59 Intake Total 2110 / 2110 2180 / 2180 1520.62 / 1520.62 Output Total 450 / 450 1000 / 1000 Balance 2110 / 2110 1730 / 1730 520.62 / 520.62 Microbiology Past 72 Hours 07/13/19 10:00 Wound - Abdominal Gram Stain - Final 07/13/19 10:00 Wound - Abdominal Wound Culture - Final No growth aerobically. 07/13/19 10:00 Wound - Abdominal Anaerobic Culture - Preliminary Checking for anaerobes, further studies to follow. 07/14/19 12:49 Mucosa - Nasopharyngeal Coronavirus COVID-19 PCR - Final 07/09/19 14:55 Blood Culture (Wb) - Anticubital Right Blood Culture - Final No growth in 5 days. 07/09/19 14:50 Blood Culture (Wb) - Anticubital Left Blood Culture - Final No growth in 5 days. Laboratory Results 07/13/19 11:37: COVID-19 (NATHALY) Not Detected 07/16/19 08:03: Creatinine 0.84, Estim Creat Clear Calc 96.23, Est GFR (MDRD) Af Amer 117, Est GFR (MDRD) Non-Af 97 Current Medications Acetaminophen (Tylenol) 1,000 mg PO Q6H PRN PRN PRN Reason: pain 1-05/17 Last Admin: 07/15/19 09:12 Dose: 1,000 mg Documented by: Atorvastatin Calcium (Lipitor) 80 mg PO QHS [facility] Last Admin: 07/15/19 22:37 Dose: 80 mg Documented by: Bisacodyl (Dulcolax) 10 mg PO DAILY PRN PRN PRN Reason: Constipation Bupropion HCl (Wellbutrin Tablets) 100 mg PO BID [facility] Last Admin: 07/16/19 05:14 Dose: 100 mg Documented by: Buspirone HCl (Buspar) 15 mg PO BID [facility] Last Admin: 07/16/19 05:15 Dose: 15 mg Documented by: Calamine/Phenol (Calmoseptine Ointment) 1 applic TOPICAL 0600,2200 [facility]; Protocol Last Admin: 07/16/19 05:15 Dose: 1 applicatio Documented by: Cholecalciferol (Vitamin D (25mcg)) [facility] Last Admin: 07/16/19 08:13 Dose: 2,000 unit Documented by: Clopidogrel Bisulfate (Plavix) 75 mg PO DAILY [facility] Last Admin: 07/16/19 05:16 Dose: 75 mg Documented by: Ferrous Sulfate (Ferrous Sulfate) [facility] Last Admin: 07/16/19 08:12 Dose: 325 mg Documented by: Vancomycin IV Pharmacy to Dose (1 ea/ Sodium Chloride) 500 mls @ 250 mls/hr IV PRN PRN; Protocol PRN Reason: Rx to Dose Vancomycin HCl 1,250 mg/ (Sodium Chloride) 275 mls @ 167 mls/hr IV Q8H [facility] Stop: 07/22/19 22:01 Last Infusion: 07/16/19 07:05 Dose: Infused Documented by: Sodium Chloride () 250 mls @ 15 mls/hr IV .[id number] PRN PRN Reason: Saline Flush Last Infusion: 07/16/19 00:19 Dose: 0 mls/hr Documented by: Sodium Chloride () 250 mls @ 15 mls/hr IV .[id number] PRN PRN Reason: Additional IVPB Infusion Ceftriaxone Sodium 2 gm/ (Sodium Chloride) 50 mls @ 100 mls/hr IV Q24 [facility] Stop: 07/22/19 23:59 Last Infusion: 07/16/19 11:00 Dose: Infused Documented by: Methimazole (Tapazole) 2.5 mg PO DAILY [facility] Last Admin: 07/16/19 05:15 Dose: 2.5 mg Documented by: Metoprolol Succinate (Toprol Xl (Beta Sari)) 200 mg PO DAILY [facility] Last Admin: 07/16/19 05:14 Dose: 200 mg Documented by: Multi-Ingredient Cream (Eucerin) 1 applic TOPICAL 2200 [facility]; Protocol Last Admin: 07/15/19 22:38 Dose: 1 applicatio Documented by: Multivitamins/Minerals (Multivitamin With Minerals (Bkc)) 1 tablet PO DAILY@0800 [facility] Last Admin: 07/16/19 08:13 Dose: 1 tablet Documented by: Nitroglycerin (Nitrostat) 0.4 mg SUBLINGUAL Q5M PRN PRN Reason: CHEST Nutritional Formula ([place] - [place] Flavor) [facility] Last Admin: 07/16/19 08:11 Dose: 1 packet Documented by: Oxycodone HCl (Oxyir) 5 mg PO Q4H PRN PRN PRN Reason: Pain Score 4-10/10 Last Admin: 07/14/19 22:16 Dose: 5 mg Documented by: Pantoprazole Sodium (Protonix) 40 mg PO DAILY [facility] Last Admin: 07/16/19 05:14 Dose: 40 mg Documented by: Polyethylene Glycol (Miralax) 17 gm PO DAILY [facility] Last Admin: 07/16/19 05:15 Dose: Not Given Documented by: Potassium Chloride (K-Dur) [facility] Last Admin: 07/16/19 08:12 Dose: 20 meq Documented by: Rivaroxaban (Xarelto) 15 mg PO DAILY [facility] Last Admin: 07/16/19 05:14 Dose: 15 mg Documented by: Senna/Docusate Sodium (Senokot-S, Kareen-Colace) 1 tablet PO BID [facility] Last Admin: 07/16/19 05:15 Dose: Not Given Documented by: Sodium Chloride () 10 - 40 ml IV UD PRN PRN Reason: SALINE FLUSH Last Admin: 07/16/19 09:50 Dose: 40 ml Documented by: Sodium Chloride () 10 - 40 ml IV UD PRN PRN Reason: SALINE FLUSH Sodium Chloride () 10 - 40 ml IV UD PRN PRN Reason: SALINE FLUSH Medical Necessity - Tobacco Use Smoking Status: Former smoker Tobacco Use: Cigars Assessment/Plan All Active Problems Debility (Acute) Abdominal pain (Acute) Pneumoperitoneum (Acute) Large bowel obstruction (Acute) Cecum perforation (Acute) Surgical site infection (Acute) Believe that it is okay for him to start taking showers now. He is to continue to do the dressing changes.
[2019-07-16 14:14] LABS: Vancomycin, Trough Level 21.6 ug/mL (5.0-15.0)
--- NOTE | 2019-07-16 14:33 | PCM.RX.CS ---
Consult Pharmacy has been consulted to manage selected antiobiotic: Vancomycin Type of Consult: Follow-up Suspected Infection: Other Prior Doses of Antibiotics Received/Current Regimen: 1250MG GIVEN 07/15 @ 0513 Labs: Sodium 141 mmol/L (136-145) 07/13/19 06:15 Potassium 4.2 mmol/L (3.5-5.1) 07/13/19 06:15 Chloride 111 mmol/L (98-107) H 07/13/19 06:15 Carbon Dioxide 25.0 mmol/L (21.0-32.0) 07/13/19 06:15 Anion Gap 5 (5-15) 07/13/19 06:15 BUN 12 mg/dL (7-18) 07/13/19 06:15 Creatinine 0.84 mg/dL (0.70-1.30) 07/16/19 08:03 Est GFR (MDRD) Af Amer 117 mL/min (>60) 07/16/19 08:03 Est GFR (MDRD) Non-Af 97 mL/min (>60) 07/16/19 08:03 BUN/Creatinine Ratio 15.8 RATIO (10-20) 07/13/19 06:15 Glucose 108 mg/dL (74-106) H 07/13/19 06:15 Vancomycin Trough 21.6 ug/mL (5.0-15.0) H 07/16/19 13:40 Microbiology: Microbiology 07/13/19 10:00 Wound - Abdominal Gram Stain - Final 07/13/19 10:00 Wound - Abdominal Wound Culture - Final No growth aerobically. 07/13/19 10:00 Wound - Abdominal Anaerobic Culture - Preliminary Checking for anaerobes, further studies to follow. 07/14/19 12:49 Mucosa - Nasopharyngeal Coronavirus COVID-19 PCR - Final 07/09/19 14:55 Blood Culture (Wb) - Anticubital Right Blood Culture - Final No growth in 5 days. 07/09/19 14:50 Blood Culture (Wb) - Anticubital Left Blood Culture - Final No growth in 5 days. 07/09/19 15:16 Urine, Random Urine Culture - Final Mixed Gram Positive Organisms 07/10/19 18:55 Wound Drainage - Abdominal Gram Stain - Final Estimated Creatinine Clearance: 96 Goal Trough: 15-20 mcg/mL Pharmacy Plan for Drug Dosin. 8.5 hour trough came back supratherapeutic at 21.6 mg/dL 2. Will hold doses for now and get a trough in the morning to assess if the level is <20mg/dL 3. Pharmacy Service will continue to monitor and adjust dosing as required. Labs to be done on [date and time ordered]: 07/17/2019 @ 0600
[2019-07-16 14:42] VITALS: BP 109/65; PULSE 81; RESP 16; TEMP 36.8; O2SAT 95
--- NOTE | 2019-07-16 15:00 | NURSING ---
When changing abd dressing there was some tunneling noted to the left. This measured approximately 7.1 cm. Suze, wound RN and Primary RNKelley made aware.
[2019-07-16] MEDS: oxyCODONE 5 MG Tablet PO (19:47)
[2019-07-16] MEDS: Atorvastatin Calcium 80 MG Tablet PO (19:48)
[2019-07-17] MEDS: Pantoprazole Sodium 40 MG Tablet PO (05:10)
[2019-07-17] MEDS: busPIRone 15 MG TABLET PO ×2 (05:10→17:16)
[2019-07-17] MEDS: Clopidogrel Bisulfate 75 MG Tablet PO (05:10)
[2019-07-17 05:12] VITALS: BP 127/87; PULSE 91
[2019-07-17] MEDS: METHIMAZOLE 5 MG TABLET 2.5 MG PO (05:12)
[2019-07-17] MEDS: Rivaroxaban 15 MG Tablet PO (05:12)
[2019-07-17] MEDS: Metoprolol(XL)Succ 200 MG Tablet PO (05:12)
[2019-07-17] MEDS: buPROPion 100 MG Tablet PO ×2 (05:15→17:16)
[2019-07-17] MEDS: Menthol/Lanolin/Calamine/Znox 113 GM Tube 1 APPLIC TOPICAL ×2 (05:17→20:36)
[2019-07-17 07:07] LABS: Creatinine, Serum 0.86 mg/dL (0.70-1.30); EST Glomerular Filtration Rate 95 mL/min (>60); Est Glom Filt Rate - Afr Amer 115 mL/min (>60); Estimated Creatinine Clearance 93.99 ml/min
[2019-07-17 07:08] LABS: Vancomycin, Random Level 12.6 ug/mL (0.0-15.0)
--- NOTE | 2019-07-17 07:57 | PCM.RX.CS ---
Consult Pharmacy has been consulted to manage selected antiobiotic: Vancomycin Type of Consult: Follow-up Suspected Infection: Other Prior Doses of Antibiotics Received/Current Regimen: Had been on 1250mg iv q8h. Last dose 5.8.20 @0513. Labs: Sodium 141 mmol/L (136-145) 07/13/19 06:15 Potassium 4.2 mmol/L (3.5-5.1) 07/13/19 06:15 Chloride 111 mmol/L (98-107) H 07/13/19 06:15 Carbon Dioxide 25.0 mmol/L (21.0-32.0) 07/13/19 06:15 Anion Gap 5 (5-15) 07/13/19 06:15 BUN 12 mg/dL (7-18) 07/13/19 06:15 Creatinine 0.86 mg/dL (0.70-1.30) 07/17/19 06:10 Est GFR (MDRD) Af Amer 115 mL/min (>60) 07/17/19 06:10 Est GFR (MDRD) Non-Af 95 mL/min (>60) 07/17/19 06:10 BUN/Creatinine Ratio 15.8 RATIO (10-20) 07/13/19 06:15 Glucose 108 mg/dL (74-106) H 07/13/19 06:15 Vancomycin Trough 21.6 ug/mL (5.0-15.0) H 07/16/19 13:40 Random Vancomycin 12.6 ug/mL (0.0-15.0) 07/17/19 06:10 Microbiology: Microbiology 07/13/19 10:00 Wound - Abdominal Gram Stain - Final 07/13/19 10:00 Wound - Abdominal Wound Culture - Final No growth aerobically. 07/13/19 10:00 Wound - Abdominal Anaerobic Culture - Preliminary Checking for anaerobes, further studies to follow. 07/14/19 12:49 Mucosa - Nasopharyngeal Coronavirus COVID-19 PCR - Final 07/09/19 14:55 Blood Culture (Wb) - Anticubital Right Blood Culture - Final No growth in 5 days. 07/09/19 14:50 Blood Culture (Wb) - Anticubital Left Blood Culture - Final No growth in 5 days. 07/09/19 15:16 Urine, Random Urine Culture - Final Mixed Gram Positive Organisms 07/10/19 18:55 Wound Drainage - Abdominal Gram Stain - Final Weight used for dosin kg Estimated Creatinine Clearance: ~94ml/min Goal Trough: 15-20 mcg/mL Pharmacy Plan for Drug Dosing: Trough level 5.8.20 was 21.6 therefore further dosing held.Cr 0.86 with CrCl ~94ml/min. Repeat level done this AM resulted in level of 12.6 (goal <20). New dosing calculated to be 1gm iv q8h with follow up Trough before 4th dose of new regimem. Pharmacy Service will continue to monitor and adjust dosing as required. Follow-Up Labs: Trough Vancomycin - 5.10.20 @0930 before 1000 dose
[2019-07-17] MEDS: Ferrous Sulfate 325 MG Tablet PO ×2 (08:55→17:16)
[2019-07-17] MEDS: Multivitamins,Ther W-Minerals Tablet 1 TABLET PO (08:55)
[2019-07-17 09:16] VITALS: PULSE 72; RESP 16; O2SAT 89
--- NOTE | 2019-07-17 09:31 | PN.SURG_ITS ---
Patient Problems: Active and Suspected Problems Debility (Acute) Abdominal pain (Acute) Pneumoperitoneum (Acute) Large bowel obstruction (Acute) Cecum perforation (Acute) Surgical site infection (Acute) Subjective: Patient had a shower yesterday and feels quite good. Objective: Virtually no cellulitis on the abdominal wall. Only serous drainage and no foul smell from his wound - Physical Exam Vitals/I&O's: Vital Signs Temp Pulse Resp BP Pulse Ox 98.3 F 72 16 127/87 H 89 07/16/19 14:42 07/17/19 09:16 07/17/19 09:16 07/17/19 05:12 07/17/19 09:16 Oxygen Delivery Method Room Air Weight: 337 lb 1.388 oz Body Mass Index (BMI) 45.7 Intake and Output for Last 24 Hours 07/15/19 07/16/19 07/17/19 23:59 23:59 23:59 Intake Total 2180 / 2180 2200.62 / 2200.62 Output Total 450 / 450 1000 / 1000 Balance 1730 / 1730 1200.62 / 1200.62 Microbiology Past 72 Hours 07/13/19 10:00 Wound - Abdominal Gram Stain - Final 07/13/19 10:00 Wound - Abdominal Wound Culture - Final No growth aerobically. 07/13/19 10:00 Wound - Abdominal Anaerobic Culture - Preliminary Checking for anaerobes, further studies to follow. 07/14/19 12:49 Mucosa - Nasopharyngeal Coronavirus COVID-19 PCR - Final 07/09/19 14:55 Blood Culture (Wb) - Anticubital Right Blood Culture - Final No growth in 5 days. 07/09/19 14:50 Blood Culture (Wb) - Anticubital Left Blood Culture - Final No growth in 5 days. Laboratory Results 07/16/19 13:40: Vancomycin Trough 21.6 H 07/17/19 06:10: Random Vancomycin 12.6 07/17/19 06:10: Creatinine 0.86, Estim Creat Clear Calc 93.99, Est GFR (MDRD) Af Amer 115, Est GFR (MDRD) Non-Af 95 Current Medications Acetaminophen (Tylenol) 1,000 mg PO Q6H PRN PRN PRN Reason: pain -05/17 Last Admin: 07/15/19 09:12 Dose: 1,000 mg Documented by: Atorvastatin Calcium (Lipitor) 80 mg PO QHS [facility] Last Admin: 07/16/19 19:48 Dose: 80 mg Documented by: Bisacodyl (Dulcolax) 10 mg PO DAILY PRN PRN PRN Reason: Constipation Bupropion HCl (Wellbutrin Tablets) 100 mg PO BID [facility] Last Admin: 07/17/19 05:15 Dose: 100 mg Documented by: Buspirone HCl (Buspar) 15 mg PO BID [facility] Last Admin: 07/17/19 05:10 Dose: 15 mg Documented by: Calamine/Phenol (Calmoseptine Ointment) 1 applic TOPICAL 0600,2200 [facility]; Protocol Last Admin: 07/17/19 05:17 Dose: 1 applicatio Documented by: Cholecalciferol (Vitamin D (25mcg)) [facility] Last Admin: 07/17/19 08:55 Dose: 2,000 unit Documented by: Clopidogrel Bisulfate (Plavix) 75 mg PO DAILY [facility] Last Admin: 07/17/19 05:10 Dose: 75 mg Documented by: Ferrous Sulfate (F[facility]ous Sulfate) [facility] Last Admin: 07/17/19 08:55 Dose: 325 mg Documented by: Vancomycin IV Pharmacy to Dose (1 ea/ Sodium Chloride) 500 mls @ 250 mls/hr IV PRN PRN; Protocol PRN Reason: Rx to Dose Sodium Chloride () 250 mls @ 15 mls/hr IV .[id number] PRN PRN Reason: Saline Flush Last Infusion: 07/16/19 00:19 Dose: 0 mls/hr Documented by: Sodium Chloride () 250 mls @ 15 mls/hr IV .[id number] PRN PRN Reason: Additional IVPB Infusion Ceftriaxone Sodium 2 gm/ (Sodium Chloride) 50 mls @ 100 mls/hr IV Q24 [facility] Stop: 07/22/19 23:59 Last Infusion: 07/16/19 11:00 Dose: Infused Documented by: Vancomycin HCl (Vancomycin) 1,000 mg in 200 mls @ 200 mls/hr IV Q8H [facility] Stop: 07/22/19 20:00 Methimazole (Tapazole) 2.5 mg PO DAILY [facility] Last Admin: 07/17/19 05:12 Dose: 2.5 mg Documented by: Metoprolol Succinate (Toprol Xl (Beta Sari)) 200 mg PO DAILY [facility] Last Admin: 07/17/19 05:12 Dose: 200 mg Documented by: Multi-Ingredient Cream (Eucerin) 1 applic TOPICAL 2200 [facility]; Protocol Last Admin: 07/16/19 19:49 Dose: 1 applicatio Documented by: Multivitamins/Minerals (Multivitamin With Minerals (Bkc)) 1 tablet PO DAILY@0800 [facility] Last Admin: 07/17/19 08:55 Dose: 1 tablet Documented by: Nitroglycerin (Nitrostat) 0.4 mg SUBLINGUAL Q5M PRN PRN Reason: CHEST Nutritional Formula ([place] - [place] Flavor) [facility] Last Admin: 07/17/19 08:55 Dose: 1 packet Documented by: Oxycodone HCl (Oxyir) 5 mg PO Q4H PRN PRN PRN Reason: Pain Score 4-10/10 Last Admin: 07/16/19 19:47 Dose: 5 mg Documented by: Pantoprazole Sodium (Protonix) 40 mg PO DAILY [facility] Last Admin: 07/17/19 05:10 Dose: 40 mg Documented by: Polyethylene Glycol (Miralax) 17 gm PO DAILY [facility] Last Admin: 07/17/19 05:10 Dose: Not Given Documented by: Potassium Chloride (K-Dur) [facility] Last Admin: 07/17/19 08:55 Dose: 20 meq Documented by: Rivaroxaban (Xarelto) 15 mg PO DAILY [facility] Last Admin: 07/17/19 05:12 Dose: 15 mg Documented by: Senna/Docusate Sodium (Senokot-S, Kareen-Colace) 1 tablet PO BID [facility] Last Admin: 07/17/19 05:11 Dose: Not Given Documented by: Sodium Chloride () 10 - 40 ml IV UD PRN PRN Reason: SALINE FLUSH Last Admin: 07/16/19 09:50 Dose: 40 ml Documented by: Sodium Chloride () 10 - 40 ml IV UD PRN PRN Reason: SALINE FLUSH Sodium Chloride () 10 - 40 ml IV UD PRN PRN Reason: SALINE FLUSH Medical Necessity - Tobacco Use Smoking Status: Former smoker Tobacco Use: Cigars Assessment/Plan All Active Problems Debility (Acute) Abdominal pain (Acute) Pneumoperitoneum (Acute) Large bowel obstruction (Acute) Cecum perforation (Acute) Surgical site infection (Acute) No change in present management.
--- NOTE | 2019-07-17 12:02 | NURSING ---
Spoke with pharmacy, received permission to administer Vancomycin
[2019-07-17] MEDS: 0.9% Saline Lock 10 ML Syringe IV ×2 (12:22→20:30)
[2019-07-17] MEDS: Vancomycin IV 1,000 MG/200 ML BAG 200 MG IV ×2 (12:22→20:30)
[2019-07-17] MEDS: oxyCODONE 5 MG Tablet PO ×2 (12:34→22:51)
[2019-07-17 14:34] VITALS: BP 136/75; PULSE 86; RESP 18; TEMP 37.2; O2SAT 98
--- NOTE | 2019-07-17 17:26 | NURSING ---
Dressing changed again per order
[2019-07-17] MEDS: Atorvastatin Calcium 80 MG Tablet PO (20:35)
[2019-07-18] MEDS: Vancomycin IV 1,000 MG/200 ML BAG 200 MG IV ×2 (04:03→11:20)
[2019-07-18] MEDS: 0.9% Saline Lock 10 ML Syringe IV ×2 (04:03→09:33)
[2019-07-18 04:53] VITALS: BP 116/74; PULSE 96
[2019-07-18] MEDS: Metoprolol(XL)Succ 200 MG Tablet PO (04:53)
[2019-07-18] MEDS: Clopidogrel Bisulfate 75 MG Tablet PO (04:53)
[2019-07-18] MEDS: Polyethylene Glycol 3350 17 GM PACKET PO (04:53)
[2019-07-18] MEDS: Rivaroxaban 15 MG Tablet PO (04:54)
[2019-07-18] MEDS: buPROPion 100 MG Tablet PO ×2 (04:54→18:10)
[2019-07-18] MEDS: Pantoprazole Sodium 40 MG Tablet PO (04:54)
[2019-07-18] MEDS: METHIMAZOLE 5 MG TABLET 2.5 MG PO (04:54)
[2019-07-18] MEDS: busPIRone 15 MG TABLET PO ×2 (04:55→18:10)
[2019-07-18] MEDS: Senna/Docusate Sodium 1 Tablet PO (04:55)
[2019-07-18] MEDS: Menthol/Lanolin/Calamine/Znox 113 GM Tube 1 APPLIC TOPICAL ×2 (04:57→20:03)
--- NOTE | 2019-07-18 08:10 | PN.SURG_ITS ---
Patient Problems: Active and Suspected Problems Debility (Acute) Abdominal pain (Acute) Pneumoperitoneum (Acute) Large bowel obstruction (Acute) Cecum perforation (Acute) Surgical site infection (Acute) Subjective: Complaints this morning Objective: Much softer around wound. Much less serous drainage. - Physical Exam Vitals/I&O's: Vital Signs Temp Pulse Resp BP Pulse Ox 98.9 F 96 18 116/74 98 07/17/19 14:34 07/18/19 04:53 07/17/19 14:34 07/18/19 04:53 07/17/19 14:34 Oxygen Delivery Method Room Air Weight: 337 lb 1.388 oz Body Mass Index (BMI) 45.7 Intake and Output for Last 24 Hours 07/16/19 07/17/19 07/18/19 23:59 23:59 23:59 Intake Total 2200.62 / 2200.62 1907.75 / 1907.75 200 / 200 Output Total 1000 / 1000 Balance 1200.62 / 1200.62 1907.75 / 1907.75 200 / 200 Microbiology Past 72 Hours 07/13/19 10:00 Wound - Abdominal Gram Stain - Final 07/13/19 10:00 Wound - Abdominal Wound Culture - Final No growth aerobically. 07/13/19 10:00 Wound - Abdominal Anaerobic Culture - Preliminary Checking for anaerobes, further studies to follow. Current Medications Acetaminophen (Tylenol) 1,000 mg PO Q6H PRN PRN PRN Reason: pain 1-05/17 Last Admin: 07/15/19 09:12 Dose: 1,000 mg Documented by: Atorvastatin Calcium (Lipitor) 80 mg PO QHS ON LICENSE OF [facility] Last Admin: 07/17/19 20:35 Dose: 80 mg Documented by: Bisacodyl (Dulcolax) 10 mg PO DAILY PRN PRN PRN Reason: Constipation Bupropion HCl (Wellbutrin Tablets) 100 mg PO BID ON LICENSE OF [facility] Last Admin: 07/18/19 04:54 Dose: 100 mg Documented by: Buspirone HCl (Buspar) 15 mg PO BID ON LICENSE OF [facility] Last Admin: 07/18/19 04:55 Dose: 15 mg Documented by: Calamine/Phenol (Calmoseptine Ointment) 1 applic TOPICAL 0600,2200 ON LICENSE OF [facility]; Protocol Last Admin: 07/18/19 04:57 Dose: 1 applicatio Documented by: Cholecalciferol (Vitamin D (25mcg)) 2,000 unit PO BIDCM ON LICENSE OF [facility] Last Admin: 07/17/19 17:16 Dose: 2,000 unit Documented by: Clopidogrel Bisulfate (Plavix) 75 mg PO DAILY ON LICENSE OF [facility] Last Admin: 07/18/19 04:53 Dose: 75 mg Documented by: Ferrous Sulfate (Ferrous Sulfate) 325 mg PO BIDCM ON LICENSE OF [facility] Last Admin: 07/17/19 17:16 Dose: 325 mg Documented by: Vancomycin IV Pharmacy to Dose (1 ea/ Sodium Chloride) 500 mls @ 250 mls/hr IV PRN PRN; Protocol PRN Reason: Rx to Dose Sodium Chloride () 250 mls @ 15 mls/hr IV .[id number] PRN PRN Reason: Saline Flush Last Infusion: 07/17/19 13:33 Dose: 0 mls/hr Documented by: Sodium Chloride () 250 mls @ 15 mls/hr IV .[id number] PRN PRN Reason: Additional IVPB Infusion Ceftriaxone Sodium 2 gm/ (Sodium Chloride) 50 mls @ 100 mls/hr IV Q24 ON LICENSE OF [facility] Stop: 07/22/19 23:59 Last Infusion: 07/17/19 12:35 Dose: Infused Documented by: Vancomycin HCl (Vancomycin) 1,000 mg in 200 mls @ 200 mls/hr IV Q8H ON LICENSE OF [facility] Stop: 07/22/19 20:00 Last Infusion: 07/18/19 05:15 Dose: Infused Documented by: Methimazole (Tapazole) 2.5 mg PO DAILY ON LICENSE OF [facility] Last Admin: 07/18/19 04:54 Dose: 2.5 mg Documented by: Metoprolol Succinate (Toprol Xl (Beta Sari)) 200 mg PO DAILY ON LICENSE OF [facility] Last Admin: 07/18/19 04:53 Dose: 200 mg Documented by: Multi-Ingredient Cream (Eucerin) 1 applic TOPICAL 2200 ON LICENSE OF [facility]; Protocol Last Admin: 07/17/19 20:37 Dose: 1 applicatio Documented by: Multivitamins/Minerals (Multivitamin With Minerals (Bkc)) 1 tablet PO DAILY@0800 ON LICENSE OF [facility] Last Admin: 07/17/19 08:55 Dose: 1 tablet Documented by: Nitroglycerin (Nitrostat) 0.4 mg SUBLINGUAL Q5M PRN PRN Reason: CHEST Nutritional Formula ([place] - [place] Flavor) 1 packet PO BIDCM ON LICENSE OF [facility] Last Admin: 07/17/19 17:16 Dose: 1 packet Documented by: Oxycodone HCl (Oxyir) 5 mg PO Q4H PRN PRN PRN Reason: Pain Score 4-12/17 Last Admin: 07/17/19 22:51 Dose: 5 mg Documented by: Pantoprazole Sodium (Protonix) 40 mg PO DAILY ON LICENSE OF [facility] Last Admin: 07/18/19 04:54 Dose: 40 mg Documented by: Polyethylene Glycol (Miralax) 17 gm PO DAILY ON LICENSE OF [facility] Last Admin: 07/18/19 04:53 Dose: 17 gm Documented by: Potassium Ch[facility] ([facility]Dur) [facility] Last Admin: 07/17/19 08:55 Dose: 20 meq Documented by: Rivaroxaban (Xarelto) 15 mg PO DAILY ON LICENSE OF [facility] Last Admin: 07/18/19 04:54 Dose: 15 mg Documented by: Senna/Docusate Sodium (Senokot-S, Kareen-Colace) 1 tablet PO BID ON LICENSE OF [facility] Last Admin: 07/18/19 04:55 Dose: 1 tablet Documented by: Sodium Chloride () 10 - 40 ml IV UD PRN PRN Reason: SALINE FLUSH Last Admin: 07/18/19 04:03 Dose: 10 ml Documented by: Sodium Chloride () 10 - 40 ml IV UD PRN PRN Reason: SALINE FLUSH Sodium Chloride () 10 - 40 ml IV UD PRN PRN Reason: SALINE FLUSH Medical Necessity - Tobacco Use Smoking Status: Former smoker Tobacco Use: Cigars Assessment/Plan All Active Problems Debility (Acute) Abdominal pain (Acute) Pneumoperitoneum (Acute) Large bowel obstruction (Acute) Cecum perforation (Acute) Surgical site infection (Acute) Continuing to make slow progress.
[2019-07-18] MEDS: Ferrous Sulfate 325 MG Tablet PO ×2 (08:54→18:12)
[2019-07-18] MEDS: Multivitamins,Ther W-Minerals Tablet 1 TABLET PO (08:54)
[2019-07-18 12:29] LABS: Vancomycin, Trough Level 11.2 ug/mL (5.0-15.0)
--- NOTE | 2019-07-18 12:52 | PCM.RX.CS ---
Consult Pharmacy has been consulted to manage selected antiobiotic: Vancomycin Type of Consult: Follow-up Suspected Infection: Other Prior Doses of Antibiotics Received/Current Regimen: On 1gm iv q8h. Labs: Sodium 141 mmol/L (136-145) 07/13/19 06:15 Potassium 4.2 mmol/L (3.5-5.1) 07/13/19 06:15 Chloride 111 mmol/L (98-107) H 07/13/19 06:15 Carbon Dioxide 25.0 mmol/L (21.0-32.0) 07/13/19 06:15 Anion Gap 5 (5-15) 07/13/19 06:15 BUN 12 mg/dL (7-18) 07/13/19 06:15 Creatinine 0.86 mg/dL (0.70-1.30) 07/17/19 06:10 Est GFR (MDRD) Af Amer 115 mL/min (>60) 07/17/19 06:10 Est GFR (MDRD) Non-Af 95 mL/min (>60) 07/17/19 06:10 BUN/Creatinine Ratio 15.8 RATIO (10-20) 07/13/19 06:15 Glucose 108 mg/dL (74-106) H 07/13/19 06:15 Vancomycin Trough 11.2 ug/mL (5.0-15.0) 07/18/19 11:35 Random Vancomycin 12.6 ug/mL (0.0-15.0) 07/17/19 06:10 Microbiology: Microbiology 07/13/19 10:00 Wound - Abdominal Gram Stain - Final 07/13/19 10:00 Wound - Abdominal Wound Culture - Final No growth aerobically. 07/13/19 10:00 Wound - Abdominal Anaerobic Culture - Preliminary Checking for anaerobes, further studies to follow. 07/14/19 12:49 Mucosa - Nasopharyngeal Coronavirus COVID-19 PCR - Final 07/09/19 14:55 Blood Culture (Wb) - Anticubital Right Blood Culture - Final No growth in 5 days. 07/09/19 14:50 Blood Culture (Wb) - Anticubital Left Blood Culture - Final No growth in 5 days. 07/09/19 15:16 Urine, Random Urine Culture - Final Mixed Gram Positive Organisms 07/10/19 18:55 Wound Drainage - Abdominal Gram Stain - Final Weight used for dosin kg Estimated Creatinine Clearance: ~94ml/min Goal Trough: 15-20 mcg/mL Pharmacy Plan for Drug Dosing: Today's Tr level was 11.2 (goal range 15-20mcg/ml). No new renal labs. Will increase dose back to 1250mg iv q8h and get repeat Tr level on 07.19.19. Pharmacy Service will continue to monitor and adjust dosing as required. Follow-Up Labs: Trough Vancomycin - 07.19.19 @1930 befoe 2000 dose
--- NOTE | 2019-07-18 13:16 | NURSING ---
Addendum entered by Jodee Atwood 07/18/19 14:55: Charted on wrong patient Original Note: Received alert value for platelet count of 834 from lab. Will notify Dr. Telles
[2019-07-18 14:55] VITALS: BP 126/54; PULSE 103; RESP 18; TEMP 36.9; O2SAT 98
[2019-07-18] MEDS: oxyCODONE 5 MG Tablet PO (18:16)
[2019-07-18] MEDS: Atorvastatin Calcium 80 MG Tablet PO (19:57)
[2019-07-18 20:30] VITALS: RESP 15
--- NOTE | 2019-07-19 02:10 | NURSING ---
t resting in chair, given blanket per request, encouraged him to elevate legs, pt states not right now. Denies further needs
[2019-07-19] MEDS: 0.9% Saline Lock 10 ML Syringe IV ×3 (04:04→22:21)
[2019-07-19] MEDS: buPROPion 100 MG Tablet PO ×2 (04:58→17:51)
[2019-07-19] MEDS: METHIMAZOLE 5 MG TABLET 2.5 MG PO (04:58)
[2019-07-19] MEDS: Pantoprazole Sodium 40 MG Tablet PO (04:58)
[2019-07-19] MEDS: busPIRone 15 MG TABLET PO ×2 (04:58→17:49)
[2019-07-19 04:59] VITALS: BP 121/65; PULSE 86
[2019-07-19] MEDS: Rivaroxaban 15 MG Tablet PO (04:59)
[2019-07-19] MEDS: Metoprolol(XL)Succ 200 MG Tablet PO (04:59)
[2019-07-19] MEDS: Senna/Docusate Sodium 1 Tablet PO (04:59)
[2019-07-19] MEDS: Clopidogrel Bisulfate 75 MG Tablet PO (04:59)
[2019-07-19] MEDS: Menthol/Lanolin/Calamine/Znox 113 GM Tube 1 APPLIC TOPICAL ×2 (05:02→22:36)
[2019-07-19] MEDS: Ferrous Sulfate 325 MG Tablet PO ×2 (09:06→16:29)
[2019-07-19] MEDS: Multivitamins,Ther W-Minerals Tablet 1 TABLET PO (09:07)
[2019-07-19] MEDS: Furosemide 40 MG Tablet PO ×2 (09:12→17:49)
[2019-07-19 09:17] VITALS: RESP 18
[2019-07-19] MEDS: oxyCODONE 5 MG Tablet PO (14:30)
[2019-07-19 14:35] VITALS: BP 122/82; PULSE 107; RESP 16; TEMP 36.9; O2SAT 97
[2019-07-19 20:25] LABS: Vancomycin, Trough Level 21.8 ug/mL (5.0-15.0)
[2019-07-19] MEDS: Atorvastatin Calcium 80 MG Tablet PO (22:21)
[2019-07-20] MEDS: oxyCODONE 5 MG Tablet PO ×3 (02:21→21:09)
[2019-07-20 03:30] VITALS: RESP 20; TEMP 36.4
[2019-07-20] MEDS: Menthol/Lanolin/Calamine/Znox 113 GM Tube 1 APPLIC TOPICAL ×2 (06:26→21:13)
[2019-07-20] MEDS: Furosemide 40 MG Tablet PO ×2 (06:27→16:33)
[2019-07-20] MEDS: Pantoprazole Sodium 40 MG Tablet PO (06:27)
[2019-07-20] MEDS: METHIMAZOLE 5 MG TABLET 2.5 MG PO (06:28)
[2019-07-20] MEDS: busPIRone 15 MG TABLET PO ×2 (06:28→16:32)
[2019-07-20] MEDS: Senna/Docusate Sodium 1 Tablet PO (06:28)
[2019-07-20] MEDS: buPROPion 100 MG Tablet PO ×2 (06:28→16:34)
[2019-07-20] MEDS: Clopidogrel Bisulfate 75 MG Tablet PO (06:28)
[2019-07-20] MEDS: Rivaroxaban 15 MG Tablet PO (06:28)
[2019-07-20 06:29] VITALS: BP 132/66; PULSE 115
[2019-07-20] MEDS: Metoprolol(XL)Succ 200 MG Tablet PO (06:29)
[2019-07-20 07:59] LABS: Absolute Lymphocyte Count 1.25 X10^3/uL (0.83-4.51); Absolute Neutrophil Count 5.3 X10^3/uL (2.0-7.7); Basophil# 0.06 X10^3/uL; Basophil% 0.7 % (0-1); Eosinophil# 0.67 X10^3/uL; Eosinophils% 8.1 % (0-5); Hematocrit 25.4 % (40-54); Hemoglobin 8.2 g/dL (13.0-16.5); Lymphocyte # 1.25 X10^3/ul (4.0); Lymphocyte % 15.1 % (19-41); Mean Corp Hgb Conc 32.3 g/dL (32-36); Mean Corpuscular Hgb 29.9 pg (27.0-32.0); Mean Corpuscular Volume 92.7 fL (80-94); Mean Platelet Vol. 8.2 fl (6.2-12.0); Monocyte# 0.97 X10^3/uL; Monocyte% 11.7 % (0-10); NRBC Flagged by Analyzer 0 % (0-5); Neutrophil # 5.29 X10^3/uL (2.7-7.7); Platelet Count 310 K/mm3 (150-450); RBC Distribution Width CV 14.6 % (11.6-14.6); Red Blood Count 2.74 M/mm3 (4.6-6.2); White Blood Count 8.3 K/mm3 (4.4-11.0)
[2019-07-20 08:05] LABS: Anion Gap 6 (5-15); BUN 18 mg/dL (7-18); BUN/Creat Ratio 17.8 RATIO (10-20); Calcium,Total 8.7 mg/dL (8.5-10.1); Chloride 105 mmol/L (98-107); Creatinine, Serum 1.01 mg/dL (0.70-1.30); EST Glomerular Filtration Rate 79 mL/min (>60); Est Glom Filt Rate - Afr Amer 95 mL/min (>60); Estimated Creatinine Clearance 80.03 ml/min; Glucose 96 mg/dL (74-106); Potassium 3.9 mmol/L (3.5-5.1); Sodium Level 139 mmol/L (136-145)
[2019-07-20 08:35] LABS: Vancomycin, Random Level 14.3 ug/mL (0.0-15.0)
[2019-07-20] MEDS: Ferrous Sulfate 325 MG Tablet PO ×2 (08:55→16:32)
[2019-07-20] MEDS: Multivitamins,Ther W-Minerals Tablet 1 TABLET PO (08:55)
[2019-07-20] MEDS: Spironolactone 25 MG Tablet PO (08:56)
--- NOTE | 2019-07-20 09:30 | PCM.RX.CS ---
Consult Pharmacy has been consulted to manage selected antiobiotic: Vancomycin Type of Consult: Follow-up Suspected Infection: Skin/Soft tissue Prior Doses of Antibiotics Received/Current Regimen: vancomycin 1250mg IV Q8hr - last admin dose 07/19/19 @1141 Labs: Sodium 139 mmol/L (136-145) 07/20/19 07:45 Potassium 3.9 mmol/L (3.5-5.1) 07/20/19 07:45 Chloride 105 mmol/L (98-107) 07/20/19 07:45 Carbon Dioxide 28.0 mmol/L (21.0-32.0) 07/20/19 07:45 Anion Gap 6 (5-15) 07/20/19 07:45 BUN 18 mg/dL (7-18) 07/20/19 07:45 Creatinine 1.01 mg/dL (0.70-1.30) 07/20/19 07:45 Est GFR (MDRD) Af Amer 95 mL/min (>60) 07/20/19 07:45 Est GFR (MDRD) Non-Af 79 mL/min (>60) 07/20/19 07:45 BUN/Creatinine Ratio 17.8 RATIO (10-20) 07/20/19 07:45 Glucose 96 mg/dL (74-106) 07/20/19 07:45 Vancomycin Trough 21.8 ug/mL (5.0-15.0) H 07/19/19 19:45 Random Vancomycin 14.3 ug/mL (0.0-15.0) 07/20/19 07:45 Microbiology: Microbiology 07/13/19 10:00 Wound - Abdominal Gram Stain - Final 07/13/19 10:00 Wound - Abdominal Wound Culture - Final No growth aerobically. 07/13/19 10:00 Wound - Abdominal Anaerobic Culture - Preliminary Checking for anaerobes, further studies to follow. 07/14/19 12:49 Mucosa - Nasopharyngeal Coronavirus COVID-19 PCR - Final 07/09/19 14:55 Blood Culture (Wb) - Anticubital Right Blood Culture - Final No growth in 5 days. 07/09/19 14:50 Blood Culture (Wb) - Anticubital Left Blood Culture - Final No growth in 5 days. 07/09/19 15:16 Urine, Random Urine Culture - Final Mixed Gram Positive Organisms 07/10/19 18:55 Wound Drainage - Abdominal Gram Stain - Final Goal Trough: 15-20 mcg/mL Pharmacy Plan for Drug Dosing: A random vancomycin trough was drawn, after the patient's vancomycin dosing was held due to elevated trough levels. The level that came back this morning resulted in a value of 14.3 (~20hrs from last administered trough). Will resume vancomycin at this time. Will start the patient on Q12hr dosing and check a trough prior to the 4th dose per protocol. PLAN/RECOMMENDATIONS 1. Vancomycin 1250mg IV Q12hr to start 07/20/19 @1100 2. Trough prior to the 4th dose of new regimen 07/22/19 @1030 3. Pharmacy Service will continue to monitor and adjust dosing as required.
[2019-07-20 12:53] VITALS: BP 110/71; PULSE 88; RESP 20; TEMP 37.2; O2SAT 98
[2019-07-20] MEDS: 0.9% Saline Lock 10 ML Syringe IV (12:55)
[2019-07-20] MEDS: Acetaminophen 500 MG Tablet 1000 MG PO (21:10)
[2019-07-20] MEDS: Atorvastatin Calcium 80 MG Tablet PO (21:20)
[2019-07-21] MEDS: oxyCODONE 5 MG Tablet PO ×3 (01:07→20:25)
[2019-07-21] MEDS: METHIMAZOLE 5 MG TABLET 2.5 MG PO (05:54)
[2019-07-21] MEDS: buPROPion 100 MG Tablet PO ×2 (05:55→17:34)
[2019-07-21] MEDS: Pantoprazole Sodium 40 MG Tablet PO (05:55)
[2019-07-21 05:56] VITALS: BP 128/63; PULSE 82
[2019-07-21] MEDS: Furosemide 40 MG Tablet PO (05:56)
[2019-07-21] MEDS: Metoprolol(XL)Succ 200 MG Tablet PO (05:56)
[2019-07-21] MEDS: Clopidogrel Bisulfate 75 MG Tablet PO (05:56)
[2019-07-21] MEDS: Menthol/Lanolin/Calamine/Znox 113 GM Tube 1 APPLIC TOPICAL ×2 (05:58→21:56)
[2019-07-21] MEDS: Rivaroxaban 15 MG Tablet PO (05:59)
[2019-07-21] MEDS: busPIRone 15 MG TABLET PO ×2 (05:59→17:34)
[2019-07-21 06:06] LABS: Anion Gap 10 (5-15); BUN 21 mg/dL (7-18); BUN/Creat Ratio 19.1 RATIO (10-20); Calcium,Total 8.6 mg/dL (8.5-10.1); Chloride 101 mmol/L (98-107); EST Glomerular Filtration Rate 71 mL/min (>60); Est Glom Filt Rate - Afr Amer 86 mL/min (>60); Estimated Creatinine Clearance 73.48 ml/min; Glucose 104 mg/dL (74-106); Potassium 3.7 mmol/L (3.5-5.1); Sodium Level 139 mmol/L (136-145)
[2019-07-21 07:06] VITALS: BP 128/63; PULSE 82; RESP 16; TEMP 36.4; O2SAT 99
[2019-07-21] MEDS: Spironolactone 25 MG Tablet PO (08:01)
[2019-07-21] MEDS: Multivitamins,Ther W-Minerals Tablet 1 TABLET PO (08:02)
[2019-07-21] MEDS: Ferrous Sulfate 325 MG Tablet PO ×2 (08:02→17:33)
[2019-07-21] MEDS: Acetaminophen 500 MG Tablet 1000 MG PO ×2 (09:46→20:25)
[2019-07-21] MEDS: 0.9% Saline Lock 10 ML Syringe IV ×2 (10:03→18:09)
[2019-07-21 10:05] VITALS: PULSE 79; RESP 18; O2SAT 94
--- NOTE | 2019-07-21 10:29 | PN.SURG_ITS ---
Patient Problems: Active and Suspected Problems Debility (Acute) Abdominal pain (Acute) Pneumoperitoneum (Acute) Large bowel obstruction (Acute) Cecum perforation (Acute) Surgical site infection (Acute) Subjective: Patient is doing well with no complaints - Physical Exam Vitals/I&O's: Vital Signs Temp Pulse Resp BP Pulse Ox 97.5 F L 79 18 128/63 H 94 07/21/19 07:06 07/21/19 10:05 07/21/19 10:05 07/21/19 07:06 07/21/19 10:05 Oxygen Delivery Method Room Air Weight: 359 lb Body Mass Index (BMI) 45.7 Intake and Output for Last 24 Hours 07/19/19 07/20/19 07/21/19 23:59 23:59 23:59 Intake Total 1919.25 / 1919.25 1645 / 1645 875 / 875 Balance 1919.25 / 1919. 1645 / 1645 875 / 875 General: Alert Neck: No JVD Lungs: Normal air movement Cardiovascular: Regular Rhythm Abdomen: Soft, Non-Distended Microbiology Past 72 Hours 07/13/19 10:00 Wound - Abdominal Gram Stain - Final 07/13/19 10:00 Wound - Abdominal Wound Culture - Final No growth aerobically. 07/13/19 10:00 Wound - Abdominal Anaerobic Culture - Preliminary Checking for anaerobes, further studies to follow. Laboratory Results 07/21/19 05:25: Sodium 139, Potassium 3.7, Chloride 101, Carbon Dioxide 28.0, Anion Gap 10, BUN 21 H, Creatinine 1.10, Estim Creat Clear Calc 73.48, Est GFR (MDRD) Af Amer 86, Est GFR (MDRD) Non-Af 71, BUN/Creatinine Ratio 19.1, Glucose 104, Calcium 8.6 Current Medications Acetaminophen (Tylenol) 1,000 mg PO Q6H PRN PRN PRN Reason: pain 1-05/17 Last Admin: 07/21/19 09:46 Dose: 1,000 mg Documented by: Atorvastatin Calcium (Lipitor) 80 mg PO QHS REPLACED BY [facility] Last Admin: 07/20/19 21:20 Dose: 80 mg Documented by: Bisacodyl (Dulcolax) 10 mg PO DAILY PRN PRN PRN Reason: Constipation Bupropion HCl (Wellbutrin Tablets) 100 mg PO BID REPLACED BY [facility] Last Admin: 07/21/19 05:55 Dose: 100 mg Documented by: Buspirone HCl (Buspar) 15 mg PO BID REPLACED BY [facility] Last Admin: 07/21/19 05:59 Dose: 15 mg Documented by: Calamine/Phenol (Calmoseptine Ointment) 1 applic TOPICAL 0600,2200 REPLACED BY [facility]; Protocol Last Admin: 07/21/19 05:58 Dose: 1 applicatio Documented by: Cholecalciferol (Vitamin [facility] (25mcg)) [facility] Last Admin: 07/21/19 08:02 Dose: 2,000 unit Documented by: Clopidogrel Bisulfate (Plavix) 75 mg PO DAILY REPLACED BY [facility] Last Admin: 07/21/19 05:56 Dose: 75 mg Documented by: Ferrous Sulf[facility] ([facility] Sulfate) [facility] Last Admin: 07/21/19 08:02 Dose: 325 mg Documented by: Furosemide (Lasix) 40 mg PO BID REPLACED BY [facility] Last Admin: 07/21/19 05:56 Dose: 40 mg Documented by: Vancomycin IV Pharmacy to Dose (1 ea/ Sodium Chloride) 500 mls @ 250 mls/hr IV PRN PRN; Protocol PRN Reason: Rx to Dose Sodium Chloride () 250 mls @ 15 mls/hr IV .[id number] PRN PRN Reason: Saline Flush Last Infusion: 07/19/19 04:05 Dose: 0 mls/hr Documented by: Sodium Chloride () 250 mls @ 15 mls/hr IV .[id number] PRN PRN Reason: Additional IVPB Infusion Ceftriaxone Sodium 2 gm/ (Sodium Chloride) 50 mls @ 100 mls/hr IV Q24 REPLACED BY [facility] Stop: 07/22/19 23:59 Last Admin: 07/21/19 10:03 Dose: 100 mls/hr Documented by: Vancomycin HCl 1,250 mg/ (Sodium Chloride) 275 mls @ 167 mls/hr IV Q12H REPLACED BY [facility] Stop: 07/22/19 23:59 Last Infusion: 07/21/19 02:02 Dose: Infused Documented by: Methimazole (Tapazole) 2.5 mg PO DAILY REPLACED BY [facility] Last Admin: 07/21/19 05:54 Dose: 2.5 mg Documented by: Metoprolol Succinate (Toprol Xl (Beta Sari)) 200 mg PO DAILY REPLACED BY [facility] Last Admin: 07/21/19 05:56 Dose: 200 mg Documented by: Multi-Ingredient Cream (Eucerin) 1 applic TOPICAL 2200 REPLACED BY [facility]; Protocol Last Admin: 07/20/19 21:19 Dose: 1 applicatio Documented by: Multivitamins/Minerals (Multivitamin With Minerals (Bkc)) 1 tablet PO DAILY@0800 REPLACED BY [facility] Last Admin: 07/21/19 08:02 Dose: 1 tablet Documented by: Nitroglycerin (Nitrostat) 0.4 mg SUBLINGUAL Q5M PRN PRN Reason: CHEST Nutritional Formula ([place] - [place] Flavor) [facility] Last Admin: 07/21/19 08:02 Dose: 1 packet Documented by: Oxycodone HCl (Oxyir) 5 mg PO Q4H PRN PRN PRN Reason: Pain Score 4-10/10 Last Admin: 07/21/19 09:44 Dose: 5 mg Documented by: Pantoprazole Sodium (Protonix) 40 mg PO DAILY REPLACED BY [facility] Last Admin: 07/21/19 05:55 Dose: 40 mg Documented by: Polyethylene Glycol (Miralax) 17 gm PO DAILY REPLACED BY [facility] Last Admin: 07/21/19 06:02 Dose: Not Given Documented by: Rivaroxaban (Xarelto) 15 mg PO DAILY REPLACED BY [facility] Last Admin: 07/21/19 05:59 Dose: 15 mg Documented by: Senna/Docusate Sodium (Senokot-S, Kareen-Colace) 1 tablet PO BID REPLACED BY [facility] Last Admin: 07/21/19 06:01 Dose: Not Given Documented by: Sodium Chloride () 10 - 40 ml IV UD PRN PRN Reason: SALINE FLUSH Last Admin: 07/21/19 10:03 Dose: 20 ml Documented by: Sodium Chloride () 10 - 40 ml IV UD PRN PRN Reason: SALINE FLUSH Sodium Chloride () 10 - 40 ml IV UD PRN PRN Reason: SALINE FLUSH [facility] Last Admin: 07/21/19 08:01 Dose: 25 mg Documented by: Medical Necessity - Tobacco Use Smoking Status: Former smoker Tobacco Use: Cigars Assessment/Plan All Active Problems Debility (Acute) Abdominal pain (Acute) Pneumoperitoneum (Acute) Large bowel obstruction (Acute) Cecum perforation (Acute) Surgical site infection (Acute) 63-year-old male with superficial surgical site infection 1. Patient appears to be doing well and his wound that was opened is clean and not draining any purulent material. Packing was changed today. There is no surrounding erythema. At the inferior portion of the incision there is still a small area of seeping skin that is seeping yellow serous fluid but it appears to be next to the incision not coming from the incision itself. The remainder of the reba were removed. I recommend that the patient follow-up with his surgeon after discharge. I recommend the patient continue twice daily wet-to-dry dressing changes. Kenny Sharma MD Pager: [facility] [address] [place] [address], [address] [place] [address] Office:
[2019-07-21 15:30] VITALS: BP 102/56; PULSE 98; RESP 20; TEMP 37.3; O2SAT 97
[2019-07-21] MEDS: Senna/Docusate Sodium 1 Tablet PO (17:34)
[2019-07-21] MEDS: Furosemide 100 MG/10 ML Vial 80 MG IV (18:08)
[2019-07-21] MEDS: Atorvastatin Calcium 80 MG Tablet PO (21:55)
[2019-07-22] MEDS: Pantoprazole Sodium 40 MG Tablet PO (05:51)
[2019-07-22] MEDS: busPIRone 15 MG TABLET PO ×2 (05:51→18:31)
[2019-07-22 05:52] VITALS: BP 120/66; PULSE 61
[2019-07-22] MEDS: Rivaroxaban 15 MG Tablet PO (05:52)
[2019-07-22] MEDS: Metoprolol(XL)Succ 200 MG Tablet PO (05:52)
[2019-07-22] MEDS: METHIMAZOLE 5 MG TABLET 2.5 MG PO (05:52)
[2019-07-22] MEDS: buPROPion 100 MG Tablet PO ×2 (05:52→18:31)
[2019-07-22] MEDS: Clopidogrel Bisulfate 75 MG Tablet PO (05:52)
[2019-07-22] MEDS: Menthol/Lanolin/Calamine/Znox 113 GM Tube 1 APPLIC TOPICAL (05:54)
[2019-07-22 05:58] VITALS: BP 120/66; PULSE 61; RESP 16; TEMP 36.5; O2SAT 99
[2019-07-22] MEDS: Multivitamins,Ther W-Minerals Tablet 1 TABLET PO (09:03)
[2019-07-22] MEDS: Spironolactone 25 MG Tablet PO (09:03)
[2019-07-22] MEDS: Ferrous Sulfate 325 MG Tablet PO ×2 (09:03→18:31)
[2019-07-22] MEDS: Acetaminophen 500 MG Tablet 1000 MG PO (09:08)
[2019-07-22] MEDS: oxyCODONE 5 MG Tablet PO (09:08)
[2019-07-22] MEDS: 0.9% Saline Lock 10 ML Syringe IV ×4 (10:38→22:35)
[2019-07-22] MEDS: Furosemide 100 MG/10 ML Vial 80 MG IV ×2 (11:38→18:31)
--- NOTE | 2019-07-22 13:40 | CASEMGMT ---
Social Work Insurance approved pt with [employer] 07/25, notified pt requesting to DC 07/22. Rereferred to [facility] for PT/OT/SN. 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 Plan: DC home alone 07/22 with [facility] PT/OT/SN. No DME needs Rhianna Triplett, PANTERA MCGOVERNW
[2019-07-22] MEDS: Senna/Docusate Sodium 1 Tablet PO (18:31)
[2019-07-22] MEDS: Atorvastatin Calcium 80 MG Tablet PO (22:38)
[2019-07-23] MEDS: Rivaroxaban 15 MG Tablet PO (05:21)
[2019-07-23] MEDS: Pantoprazole Sodium 40 MG Tablet PO (05:21)
[2019-07-23] MEDS: busPIRone 15 MG TABLET PO (05:21)
[2019-07-23] MEDS: METHIMAZOLE 5 MG TABLET 2.5 MG PO (05:21)
[2019-07-23] MEDS: buPROPion 100 MG Tablet PO (05:21)
[2019-07-23] MEDS: Clopidogrel Bisulfate 75 MG Tablet PO (05:21)
[2019-07-23 05:26] VITALS: BP 118/69; PULSE 94
[2019-07-23] MEDS: Metoprolol(XL)Succ 200 MG Tablet PO (05:26)
[2019-07-23 05:30] VITALS: BP 118/69; PULSE 94; RESP 18; TEMP 36.6
[2019-07-23 09:00] LABS: Anion Gap 7 (5-15); BUN 24 mg/dL (7-18); BUN/Creat Ratio 22.9 RATIO (10-20); Calcium,Total 8.7 mg/dL (8.5-10.1); Chloride 105 mmol/L (98-107); Creatinine, Serum 1.05 mg/dL (0.70-1.30); EST Glomerular Filtration Rate 75 mL/min (>60); Est Glom Filt Rate - Afr Amer 91 mL/min (>60); Estimated Creatinine Clearance 76.98 ml/min; Glucose 108 mg/dL (74-106); Potassium 3.7 mmol/L (3.5-5.1); Sodium Level 138 mmol/L (136-145)
[2019-07-23] MEDS: Ferrous Sulfate 325 MG Tablet PO (09:08)
[2019-07-23] MEDS: Multivitamins,Ther W-Minerals Tablet 1 TABLET PO (09:10)
[2019-07-23] MEDS: Spironolactone 25 MG Tablet PO (09:15)
[2019-07-23 10:00] VITALS: PULSE 102; RESP 18; O2SAT 96
[2019-07-23 11:55] VITALS: BP 124/69; PULSE 102; RESP 18; TEMP 36.9; O2SAT 96
[2019-07-23 13:00] VITALS: BP 124/69; PULSE 102; RESP 18; TEMP 36.9; O2SAT 96
== END 2019-07-23 12:30 | disposition home health service (06) | DRG 949 ==
PROVIDERS: Admitting Provider Family Medicine Geriatric Medicine; Referring Provider Family Medicine Geriatric Medicine; Visit Provider Family Medicine Geriatric Medicine
DX: Z48.815 Encounter for surgical aftercare following surgery on the digestive system (principal); I50.22 Chronic systolic (congestive) heart failure; I13.0 Hypertensive heart and chronic kidney disease with heart failure and stage 1 through stage 4 chronic kidney disease, or unspecified chronic kidney disease; I48.20 Chronic atrial fibrillation, unspecified; L03.311 Cellulitis of abdominal wall; T81.41XA Infection following a procedure, superficial incisional surgical site, initial encounter; F32.9 Major depressive disorder, single episode, unspecified; E78.5 Hyperlipidemia, unspecified; G47.33 Obstructive sleep apnea (adult) (pediatric); I25.10 Atherosclerotic heart disease of native coronary artery without angina pectoris; K25.7 Chronic gastric ulcer without hemorrhage or perforation; M19.90 Unspecified osteoarthritis, unspecified site; Z93.2 Ileostomy status; Z87.891 Personal history of nicotine dependence; D50.9 Iron deficiency anemia, unspecified; K21.9 Gastro-esophageal reflux disease without esophagitis; E05.90 Thyrotoxicosis, unspecified without thyrotoxic crisis or storm; E87.6 Hypokalemia; F41.9 Anxiety disorder, unspecified; E55.9 Vitamin D deficiency, unspecified; Z87.11 Personal history of peptic ulcer disease; Y83.2 Surgical operation with anastomosis, bypass or graft as the cause of abnormal reaction of the patient, or of later complication, without mention of misadventure at the time of the procedure; Y92.129 Unspecified place in nursing home as the place of occurrence of the external cause
CPT/HCPCS: 36415; 36569; 71045; 80048; 80053; 80202; 81001; 82565; 85025; 87040; 87070; 87075; 87077; 87086; 87205; 87635; 87641; 97110; 97116; 97162; 97166; 97530; 97535; 97802; G2023; J7040; J7050; A4216; J0696; J1940; U0002; U0004

== ENCOUNTER → 2019-07-12 | Outpatient (CLI) | payer MEDICARE, MEDICAID, SELFPAY ==
[2019-07-05 23:33] VITALS: BMI 45.7
--- NOTE | 2019-07-12 16:12 | CT_ITS ---
We are attempting to reach an attending provider to discuss findings. An addendum with communication details will be sent when the communication is complete. STUDY: CT ABDOMEN AND PELVIS WITH CONTRAST REASON FOR EXAM: Male, 63 years old. ABD ABCESS, S/P EMERGENCY EXPLORATORY LAP-LARGE BOWEL OBSTRUCTION WITH CECUM PERFORMANCE, PNEUMOPERITONEUM,ILEOCOLECTOMY, PRIMARY ANASTOMOSIS, HX-ISCHEMIC COLCABG, HERNIA REPAIR, CERVICAL FUSION, EPIGASTRIC HERNIA REPAIR, EXPLORATORY LAP WITH ILEOCOLECTOMY, PRIMARY ANASTOMSOSISITIS, GASTRIC ULCER, A-FIB, CAD, CKD, HTN, SURG- RADIATION DOSAGE (If Supplied By Facility): CTDIvol = ( 21.96 ) mGy, DLP = ( 1795.12 ) mGycm TECHNIQUE: Transaxial images were obtained from the dome of the diaphragm to the symphysis pubis without oral contrast. Oral and amp; IV Gastrografin and amp; 100mL Isovue-300 was administered. Sagittal and coronal images were reconstructed. Individualized dose optimization techniques were used for this CT. COMPARISON: None. FINDINGS: Small right effusion. Calcific coronary artery disease. Normal liver. Gallbladder is contracted. Normal spleen. Normal pancreas. Normal bilateral adrenal glands. Bilateral punctate nonobstructing nephroliths. Small hiatal hernia. Oral contrast is noted within the stomach and small bowel. Normal small intestine. RIGHT colectomy. Normal abdominal aorta. Normal inferior vena cava. Normal retroperitoneum. Normal urinary bladder. Fat-containing ventral hernia. Midline skin reba noted. Fat-containing periumbilical hernia. Subcutaneous ventral collection of gas and fluid measuring 37 x 38 mm. This appears to communicate with the peritoneal cavity. Moderate levoconvex scoliosis, spondylosis and multilevel vacuum disc phenomena. CT/Abdomen/Pelvis WITH Contrast IMPRESSION: Postoperative changes above and possible subcutaneous incisional 38 mm abscess. Electronically Signed: Zelalem Oropeza MD at 16:58 EDT , Service support ,
== END | disposition home or self-care (01) ==
PROVIDERS: Visit Provider Family Medicine Geriatric Medicine
DX: L02.211 Cutaneous abscess of abdominal wall (principal)
CPT/HCPCS: 74177; Q9967

== ENCOUNTER 2021-12-04 13:20 | Day surgery (SDC) | payer MEDICARE, MEDICAID, SELFPAY ==
[2021-12-04] VITALS (12 sets, daily range): BP systolic 121–154; BP diastolic 80–102; PULSE 71–147; RESP 16–18; TEMP 36.6–37.1; O2SAT 97–100; BMI 49.0
--- NOTE | 2021-12-04 13:33 | HP.PCM_ITS ---
History and Physical Date of Admission: 12/04/21 Chief Complaint: heme positive stool Details: DEMIAN NELSON, is a 66 M who presents to the office today for referred for heme positive stool. In 2019 he had large bowel obstruction, cecum perforation, gastric ulcer, ischemic colitis. He had surgery done at [place]--ileocolectomy, primary anastomosis 06/27/19; then he was here at [facility] for rehab at the TCU. He is on iron. Stools are soft since his surgery, not bothersome. No melena or hematochezia. No nausea, vomiting, hematemesis. 09/25/21 labs: hgb 14.3, creat 1.31, TSH 6.975, ESR 18, CPR 0.29, ALT 13, AST 20 Exam Const General: cooperative and comfortable Orientation: alert, awake and oriented x3 HENMT Head: normal to inspection Eyes General: appearance normal, both eyes and all related structures Resp Effort & Inspection: normal respiratory effort GI Inspection: normal to inspection Palpation: soft, no hepatosplenomegaly, no masses and nontender Quality Reporting Tobacco Screening ([facility] 138) Smoking Status: Former smoker Assessment and Plan Assessment and Plan (1) Heme positive stool: ?Status:?Acute ?Plan: He will be scheduled for EGD and colonoscopy for heme positive stool. Hx gastric ulcer, hx ischemic colitis, hx cecum perforation, GERD on PPI. f/u 2 wks after endoscopy. Coding Level of Care Code Off vis,new,level 3 Diagnoses Heme positive stool? R19.5 I have re-examined the patient. There are no clinical changes since date of exam. (if applicable) ? CC: ? ~
[2021-12-04] MEDS: Lactated Ringers 1,000 ML 15 ML IV (13:58)
--- NOTE | 2021-12-04 14:45 | COLBX_PTH ---
PATIENT: DEMIAN NELSON LOC: KO U#:[id number] AGE/SX: 66/M ROOM: RE12/04/[address]: Dr. Zander Farrar DO : 1955 BED: DIS: 12/04/2021 SPEC #: [id number] RECD: 12/04/21 19:59 STATUS: LUCA PETERSON #: [id number] ANNABELLE: 12/04/21 14:[address]: Zander Farrar DEPT: SURGICAL PATHOLOGY RECD BY: Leigha Rodas ENTERED: 12/05/21 08:08 SP TYPE: COLON BX OTHR DR: Dr. Jj Rogers MD Tissues: Esophagus, NOS Procedures: Special Stain Group II Surgery Specimen Level IV Alcian Blue/PAS (control) HEADER OPERATION: Colonoscopy, EGD (MAC), biopsy PRE-OP DIAGNOSIS: Heme-positive stool, gastric ulcer, ischemic colitis TISSUE SUBMITTED: Distal esophagus biopsy MICROSCOPIC DIAGNOSIS Distal esophagus, biopsy: Fragments of gastroesophageal mucosa with moderate chronic inflammation. Intestinal metaplasia (goblet cell metaplasia) not identified. See comment. LIEN:jade 12/06/2021 COMMENT Alcian blue/PAS stain with matched control is used in the evaluation of the specimen. MICROSCOPIC DESCRIPTION Slides are reviewed. GROSS DESCRIPTION Received in fixative is one container labeled with the patient's name and designated distal esophagus biopsy. The specimen consists of multiple irregular fragments of light nunez soft tissue that in aggregate measure 1 x 0.3 x 0.1 cm. The specimen is totally submitted in one cassette. / LIEN:jade 12/05/2021 TC:3 CPT: 11475, 69479
--- NOTE | 2021-12-04 15:51 | OP.EGD_ITS ---
Patient Name: Henrique Pederson Procedure Date: 12/04/2021 3:19 PM Date of : 1955 Age: 66 Procedure: Upper GI endoscopy Indications: Epigastric abdominal pain, Iron deficiency anemia Providers: Zander Farrar DO Referring MD: Zander Farrar DO Medicines: Monitored Anesthesia Care Patient Profile: This is a 66 year old male. Refer to note in patient chart for documentation of history and physical. Patient has symptoms of chronic epigastric abdominal pain. Complications: No immediate complications. Procedure: Pre-Anesthesia Assessment: - Prior to the procedure, a History and Physical was performed, and patient medications and allergies were reviewed. The risks and benefits of the procedure and the sedation options and risks were discussed with the patient. All questions were answered and informed consent was obtained. Patient identification and proposed procedure were verified by the physician in the pre-procedure area. Mental Status Examination: alert and oriented. Airway Examination: normal oropharyngeal airway and neck mobility. Respiratory Examination: clear to auscultation. CV Examination: normal. Prophylactic Antibiotics: The patient does not require prophylactic antibiotics. Prior Anticoagulants: The patient has taken no previous anticoagulant or antiplatelet agents. ASA Grade Assessment: II - A patient with mild systemic disease. After reviewing the risks and benefits, the patient was deemed in satisfactory condition to undergo the procedure. The anesthesia plan was to use monitored anesthesia care (MAC). Immediately prior to administration of medications, the patient was re-assessed for adequacy to receive sedatives. The heart rate, respiratory rate, oxygen saturations, blood pressure, adequacy of pulmonary ventilation, and response to care were monitored throughout the procedure. The physical status of the patient was re-assessed after the procedure. After obtaining informed consent, the endoscope was passed under direct vision. Throughout the procedure, the patient's blood pressure, pulse, and oxygen saturations were monitored continuously. The was introduced through the mouth, and advanced to the second part of duodenum. The upper GI endoscopy was accomplished without difficulty. The patient tolerated the procedure well. Scope In: 3:26:15 PM Scope Out: 3:30:56 PM Total Procedure Duration Time 0 hours 4 minutes 41 seconds Findings: LA Grade A (one or more mucosal breaks less than 5 mm, not extending between tops of 2 mucosal folds) esophagitis with no bleeding was found 36 to 38 cm from the incisors. Biopsies were taken with a cold forceps for histology. Verification of patient identification for the specimen was done. Estimated blood loss was minimal. A medium-sized hiatal hernia was present. Localized moderate inflammation with hemorrhage characterized by congestion (edema) and friability was found in the gastric body. Coagulation for hemostasis using heater probe was successful. Estimated blood loss was minimal. The duodenal bulb was normal. Impression: - LA Grade A reflux esophagitis. Biopsied. - Medium-sized hiatal hernia. - Chronic gastritis with hemorrhage. Treated with a heater probe. - Normal duodenal bulb. Recommendation: - Discharge patient to home. - Resume previous diet. - Continue present medications. - Await pathology results. - Repeat upper endoscopy in 1 year for surveillance. Procedure Code(s): --- Professional --- 16827, 59, Esophagogastroduodenoscopy, flexible, transoral; with control of bleeding, any method 97632, 51, Esophagogastroduodenoscopy, flexible, transoral; with biopsy, single or multiple CPT copyright 2017 [employer]. All rights reserved. The codes documented in this report are preliminary and upon county or city auditor review may be revised to meet current compliance requirements. Zander Farrar DO 12/04/2021 3:50:56 PM This report has been signed electronically. Number of Addenda: 0 Note Initiated On: 12/04/2021 3:19 PM
--- NOTE | 2021-12-04 15:51 | OP.CCLET_ITS ---
12/04/2021 No Primary Care Physician Re : Upper GI endoscopy procedure for Henrique Pederson Dear Care Physician This procedure was performed on Saturday, December 04, 2021. My impressions and recommendations are as follows: Impressions : - LA Grade A reflux esophagitis. Biopsied. - Medium-sized hiatal hernia. - Chronic gastritis with hemorrhage. Treated with a heater probe. - Normal duodenal bulb. Recommendations : - Discharge patient to home. - Resume previous diet. - Continue present medications. - Await pathology results. - Repeat upper endoscopy in 1 year for surveillance. My findings are described in the full procedure note, which is enclosed. If I can be of further assistance, please feel free to contact me at . Sincerely, Zander Farrar, 12/04/2021 3:50:56 PM This report has been signed electronically.
--- NOTE | 2021-12-04 15:55 | OP.COLON_ITS ---
Patient Name: Henrique Pederson Procedure Date: 12/04/2021 3:31 PM Date of : 1955 Age: 66 Procedure: Colonoscopy Indications: Heme positive stool, Rectal bleeding Providers: Zander Farrar DO Referring MD: Zander Farrar DO Medicines: Monitored Anesthesia Care Patient Profile: This is a 66 year old male. Refer to note in patient chart for documentation of history and physical. Patient has symptoms of chronic epigastric abdominal pain. Last Colonoscopy: within the past 3 years. Complications: No immediate complications. Procedure: Pre-Anesthesia Assessment: - Prior to the procedure, a History and Physical was performed, and patient medications and allergies were reviewed. The risks and benefits of the procedure and the sedation options and risks were discussed with the patient. All questions were answered and informed consent was obtained. Patient identification and proposed procedure were verified by the physician in the pre-procedure area. Mental Status Examination: alert and oriented. Airway Examination: normal oropharyngeal airway and neck mobility. Respiratory Examination: clear to auscultation. CV Examination: normal. Prophylactic Antibiotics: The patient does not require prophylactic antibiotics. Prior Anticoagulants: The patient has taken no previous anticoagulant or antiplatelet agents. ASA Grade Assessment: II - A patient with mild systemic disease. After reviewing the risks and benefits, the patient was deemed in satisfactory condition to undergo the procedure. The anesthesia plan was to use monitored anesthesia care (MAC). Immediately prior to administration of medications, the patient was re-assessed for adequacy to receive sedatives. The heart rate, respiratory rate, oxygen saturations, blood pressure, adequacy of pulmonary ventilation, and response to care were monitored throughout the procedure. The physical status of the patient was re-assessed after the procedure. After I obtained informed consent, the scope was passed under direct vision. Throughout the procedure, the patient's blood pressure, pulse, and oxygen saturations were monitored continuously. The Colonoscope was introduced through the anus and advanced to the ileocolonic anastomosis. The colonoscopy was performed without difficulty. The patient tolerated the procedure well. The quality of the bowel preparation was good. Scope In: 3:33:11 PM Scope Withdrawal Time 0 hours 9 minutes 26 seconds Scope Out: 3:45:31 PM Total Procedure Duration Time 0 hours 12 minutes 20 seconds Findings: The perianal and digital rectal examinations were normal. Two medium-sized localized angiodysplastic lesions with bleeding were found at the anastomosis. Coagulation for hemostasis using argon plasma at 0.3 liters/minute and 20 newton was successful. Estimated blood loss was minimal. A moderate amount of stool was found in the rectum, in the recto-sigmoid colon, in the sigmoid colon and in the transverse colon, interfering with visualization. Lavage of the area was performed using copious amounts of sterile water, resulting in clearance with fair visualization. Impression: - Two bleeding colonic angiodysplastic lesions. Treated with argon plasma coagulation (APC). - Stool in the rectum, in the recto-sigmoid colon, in the sigmoid colon and in the transverse colon. - No specimens collected. Recommendation: - Discharge patient to home. - Resume previous diet. - Continue present medications. - Repeat colonoscopy in 5 years for surveillance. Procedure Code(s): --- Professional --- 73862, Colonoscopy, flexible; with control of bleeding, any method CPT copyright 2017 [employer]. All rights reserved. The codes documented in this report are preliminary and upon supervisor wood room review may be revised to meet current compliance requirements. Zander Farrar DO 12/04/2021 3:54:42 PM This report has been signed electronically. Number of Addenda: 0 Note Initiated On: 12/04/2021 3:31 PM
--- NOTE | 2021-12-04 15:55 | OP.CCLET_ITS ---
12/04/2021 No Primary Care Physician Re : Colonoscopy procedure for Henrique Pederson Dear Care Physician This procedure was performed on Saturday, December 04, 2021. My impressions and recommendations are as follows: Impressions : - Two bleeding colonic angiodysplastic lesions. Treated with argon plasma coagulation (APC). - Stool in the rectum, in the recto-sigmoid colon, in the sigmoid colon and in the transverse colon. - No specimens collected. Recommendations : - Discharge patient to home. - Resume previous diet. - Continue present medications. - Repeat colonoscopy in 5 years for surveillance. My findings are described in the full procedure note, which is enclosed. If I can be of further assistance, please feel free to contact me at . Sincerely, Zander Farrar, 12/04/2021 3:54:42 PM This report has been signed electronically.
== END 2021-12-04 17:13 | disposition home or self-care (01) ==
LOC: EN 13:22 → AC 13:24
PROVIDERS: PCP Family Medicine; Referring Provider Family Medicine; Visit Provider Internal Medicine Gastroenterology
PROC: 0DJD8ZZ Inspection of Lower Intestinal Tract, Via Natural or Artificial Opening Endoscopic (ICD-10-PCS; CPT 45378; principal; 2021-12-04 14:40)
DX: K55.21 Angiodysplasia of colon with hemorrhage (principal); M06.9 Rheumatoid arthritis, unspecified; I50.9 Heart failure, unspecified; I11.0 Hypertensive heart disease with heart failure; K44.9 Diaphragmatic hernia without obstruction or gangrene; K29.51 Unspecified chronic gastritis with bleeding; K21.00 Gastro-esophageal reflux disease with esophagitis, without bleeding; D50.9 Iron deficiency anemia, unspecified; F41.9 Anxiety disorder, unspecified; E05.00 Thyrotoxicosis with diffuse goiter without thyrotoxic crisis or storm; F32.A Depression, unspecified; I25.10 Atherosclerotic heart disease of native coronary artery without angina pectoris; Z79.02 Long term (current) use of antithrombotics/antiplatelets; Z79.899 Other long term (current) drug therapy; Z87.891 Personal history of nicotine dependence
CPT/HCPCS: 45382; 43239; 43255; 88305; 88313; J7120

== ENCOUNTER 2022-04-21 22:35 | Inpatient (IN) | payer MEDICARE, MEDICAID, SELFPAY ==
[2022-04-21 22:37] VITALS: BP 108/69; PULSE 113; RESP 18; TEMP 36.5; O2SAT 94; BMI 48.4
--- NOTE | 2022-04-21 23:05 | EKG12_ITS ---
Test Reason : WEAKNESS Blood Pressure : / mmHG Vent. Rate : 122 BPM Atrial Rate : 000 BPM P-R Int : 000 ms QRS Dur : 092 ms QT Int : 330 ms P-R-T Axes : 000 081 067 degrees QTc Int : 470 ms Atrial fibrillation with rapid ventricular response Incomplete right bundle branch block Septal infarct , age undetermined Abnormal ECG No previous ECGs available Confirmed by DOROTEO CHRISTIAN, MITCH ([id number]), manager editorial BETSY CRYSATL ([id number]) on 04/23/2022 7:44:55 AM Referred By: Confirmed By:MITCH SADLER MD
[2022-04-21] MEDS: oxyCODONE 5 MG Tablet 10 MG PO (23:25)
[2022-04-21 23:30] VITALS: BP 100/75; PULSE 140; RESP 26; O2SAT 95
[2022-04-21 23:35] LABS: Absolute Lymphocyte Count 0.67 X10^3/uL (0.83-4.51); Absolute Neutrophil Count 6.6 X10^3/uL (2.0-7.7); Basophil# 0.07 X10^3/uL; Basophil% 0.8 % (0-1); Eosinophil# 0.13 X10^3/uL; Eosinophils% 1.5 % (0-5); Hematocrit 34.7 % (40-54); Hemoglobin 11.5 g/dL (13.0-16.5); Lymphocyte # 0.67 X10^3/ul (0.83-4.51); Lymphocyte % 7.5 % (19-41); Mean Corp Hgb Conc 33.1 g/dL (32-36); Mean Corpuscular Hgb 31.9 pg (27.0-32.0); Mean Corpuscular Volume 96.1 fL (80-94); Mean Platelet Vol. 8.5 fl (6.2-12.0); Monocyte# 1.24 X10^3/uL; Monocyte% 13.9 % (0-10); NRBC Flagged by Analyzer 0 % (0-5); Neutrophil # 6.61 X10^3/uL (2.7-7.7); Neutrophil % 74.2 % (47-70); Platelet Count 290 K/mm3 (150-450); RBC Distribution Width CV 13.2 % (11.6-14.6); RBC Distribution Width SD 47.1 fl (35.1-43.9); Red Blood Count 3.61 M/mm3 (4.6-6.2); White Blood Count 8.9 K/mm3 (4.4-11.0)
[2022-04-21] MEDS: dilTIAZem 25 MG/5 ML Vial 20 MG IV BOLUS (23:35)
[2022-04-21 23:37] LABS: International Normalized Ratio 1.3; Partial Thromboplast Time 38.7 Seconds (24.1-36.2); Prothrombin Time (Protime)PT. 15.8 SECONDS (11.7-14.9)
[2022-04-21 23:42] LABS: Anion Gap 7 (5-15); BUN 20 mg/dL (7-18); BUN/Creat Ratio 16.1 RATIO (10-20); CPK Total, Creatine Kinase 100 U/L (39-308); Calcium,Total 9.5 mg/dL (8.5-10.1); Chloride 101 mmol/L (98-107); Creatinine, Serum 1.24 mg/dL (0.70-1.30); EST Glomerular Filtration Rate 62 mL/min (>60); Est Glom Filt Rate - Afr Amer 74 mL/min (>60); Estimated Creatinine Clearance 62.58 ml/min; Glucose 122 mg/dL (74-106); Magnesium 1.8 mg/dL (1.6-2.6); Potassium 3.7 mmol/L (3.5-5.1); Sodium Level 136 mmol/L (136-145)
[2022-04-22] VITALS (25 sets, daily range): BP systolic 98–189; BP diastolic 54–145; PULSE 62–144; RESP 16–30; TEMP 36.6–37.1; O2SAT 21–99; BMI 97.2; BMI 47.1
[2022-04-22] MEDS: Metoprolol Tartrate 25 MG Tablet PO (01:16)
--- NOTE | 2022-04-22 03:56 | HP.PCM.HOS_ITS ---
[facility] - General General Date of Admission: 04/22/22 Date of Service: 04/22/22 Chief Complaint: Weakness HPI Narrative DEMIAN NELSON, is a 66 M with a significant history of a quadruple CABG about 4 years ago; CAD status post coronary stent about 2 years ago; atrial fibrillation on Xarelto; and rheumatoid arthritis who presents to the emergency department with weakness. Reportedly patient is weak and fatigue and unable to stand up. He report that he has [id number] arthritis on bilateral knees causing pain in his bilateral knees. Previously patient used to use a cane but now he uses a walker if he can get up. However he is unable to get up and use the walker. Of note patient have a home health aide who comes to her house about 3 times in a week to help take care of patient. On presentation at the emergency department patient was found to be in atrial fibrillation with RVR and he received Cardizem IV and metoprolol p.o. [facility] Medical History Anxiety Back pain Blackout Cardiology follow-up encounter CHF (congestive heart failure) Coronary artery disease involving coronary bypass graft Depression Dietary restriction Difficulty chewing Former smoker Graves disease High cholesterol History of atrial fibrillation History of echocardiogram History of edema History of heart attack History of kidney stones History of pain when walking History of renal disease History of stomach ulcers History of stress test Hypertension Ischemic cardiomyopathy Neuropathy Nocturia Rheumatoid arthritis Shortness of breath on exertion Walker as ambulation aid Home Medications atorvastatin 80 mg tablet 80 mg PO QHS cholesterol 07/05/19 [History Last Taken Unknown] bupropion HCl 100 mg tablet 100 mg PO BID depression 07/05/19 [History Last Taken Unknown] buspirone 15 mg tablet 15 mg PO BID anxiety 07/05/19 [History Last Taken Unknown] metoprolol succinate 200 mg tablet,extended release 24 hr 200 mg PO DAILY blood pressure/heart 07/05/19 [History Last Taken Unknown] multivitamin with minerals 1 ea PO DAILY supplement 07/05/19 [History Last Taken Unknown] nitroglycerin 0.4 mg sublingual tablet 0.4 mg sublingual Q5M PRN Chest Pain 07/05/19 [History Last Taken Unknown] ferrous sulfate 325 mg (65 mg iron) tablet 325 mg PO BIDCM supplement #60 tabs 07/09/19 [Rx Last Taken Unknown] pantoprazole 40 mg tablet,delayed release 40 mg PO DAILY gerd #30 tabs 07/09/19 [Rx Last Taken Unknown] spironolactone 25 mg tablet 25 mg PO DAILYCM 07/22/19 [Rx Last Taken Unknown] azathioprine 50 mg tablet 50 mg PO BID 11/29/21 [History Last Taken Unknown] citalopram 40 mg tablet (Celexa) 40 mg PO DAILY 11/29/21 [History Last Taken Unknown] fenofibrate 54 mg tablet 54 mg PO DAILY 11/29/21 [History Last Taken Unknown] lisinopril 5 mg tablet 5 mg PO DAILY 11/29/21 [History Last Taken 12/04/21] pregabalin 50 mg capsule (Lyrica) 50 mg PO BID 11/29/21 [History Last Taken Unknown] rivaroxaban 20 mg tablet (Xarelto) 20 mg PO DAILY 11/29/21 [History Last Taken 12/01/21] sulfasalazine 500 mg tablet 0.5 g PO DAILY 11/29/21 [History Last Taken Unknown] torsemide 20 mg tablet 20 mg PO DAILY 11/29/21 [History Last Taken 12/04/21] Allergy/AdvReac Type Severity Reaction Status Date / Time Penicillins [PCN] Allergy Swelling Verified 04/21/22 22:41 Family History Mother Cancer Father Heart disease Thyroid disorder Hypertension Sister Kidney disease Cancer Diabetes Brother Diabetes Surgical History H/O hernia repair History of cardiac catheterization History of esophagogastroduodenoscopy (EGD) History of incision and drainage Hx of colectomy Hx of colonoscopy Hx of heart bypass surgery S/P cervical spinal fusion S/P right knee arthroscopy Social History Smoking Status: Former smoker ROS ROS Narrative Pertinent positives and pertinent negatives as noted in HPI. All other systems were reviewed and are negative Vital Signs Vital Signs Vital Signs: 04/21/22 22:37 04/21/22 23:28 04/21/22 23:30 Temperature 97.7 F L Temperature Source Temporal Pulse Rate 113 H 140 H Respiratory Rate 18 26 H Respiratory Effort Non-Labored Blood Pressure 108/69 100/75 Blood Pressure Mean 82 83 Pulse Ox 94 95 Oxygen Delivery Method Room Air Room Air 04/22/22 00:08 04/22/22 00:57 04/22/22 02:41 Temperature Temperature Source Pulse Rate 120 H 120 H 97 Respiratory Rate 30 H 20 H 22 H Respiratory Effort Blood Pressure 121/81 H 116/62 Blood Pressure Mean 94 80 Pulse Ox 92 21 95 Oxygen Delivery Method Room Air Room Air Room Air Weight Weight: 162.1 kg Body Mass Index (BMI) 48.4 Physical Exam Narrative Physical exam: General: Morbidly obese Head: Normocephalic, atraumatic, no tenderness Eyes: Vision is grossly intact. EOMI ENT, no trauma, moist mucous membranes, no rhinorrhea Neck: Nontender, No thyromegaly. CVS: Irregularly irregular rate and rhythm. S1-S2 present. No murmur, gallop or rub. Respiratory : Diminished. Chest wall nontender, no wheezing Abdomen: Soft, nontender, nondistended, normal bowel sounds, no masses : Deferred Extremities: Left leg with lymphedema dressing. Right leg with abrasion on chin. Skin: Normal color, no trauma Neuro: Alert, oriented, cranial nerves II through XII grossly intact. Psychiatry: Normal mood. Normal affect. Not depressed. Not anxious. Results Lab / Micro Data Result Diagrams: 04/21/22 23:17 04/21/22 23:17 Labs: Laboratory Results - last 24 hr 04/21/22 23:17: WBC 8.9, RBC 3.61 L, Hgb 11.5 L, Hct 34.7 L, MCV 96.1 H, MCH 31.9, MCHC 33.1, RDW Std Deviation 47.1 H, RDW Coeff of Trev 13.2, Plt Count 290, MPV 8.5, Immature Gran % (Auto) 2.100 H, Neut % (Auto) 74.2 H, Lymph % (Auto) 7.5 L, [place] % (Auto) 13.9 H, Eos % (Auto) 1.5, Baso % (Auto) 0.8, Absolute Neuts (auto) 6.6, Absolute Lymphs (auto) 0.67 L, Nucleated RBC % 0 04/21/22 23:17: PT 15.8 H, INR 1.3, APTT 38.7 H 04/21/22 23:17: Sodium 136, Potassium 3.7, Chloride 101, Carbon Dioxide 28.0, Anion Gap 7, BUN 20 H, Creatinine 1.24, Estim Creat Clear Calc 62.58, Est GFR (MDRD) Af Amer 74, Est GFR (MDRD) Non-Af 62, BUN/Creatinine Ratio 16.1, Glucose 122 H, Calcium 9.5, Magnesium 1.8, Total Creatine Kinase 100 Assessment & Plan Assessment/Plan (1) Debility: (2) Atrial fibrillation: QUALIFIERS: Atrial fibrillation type: longstanding persistent Qualified Code(s): I48.11 - Longstanding persistent atrial fibrillation (3) Morbid obesity: PLAN: Plan Debility PT and OT to work with patient. Case management consult. Tylenol for pain Atrial fibrillation with rapid ventricular response Patient with rapid ventricular response on presentation and required Cardizem IV metoprolol p.o. Continue home rate control medications. Continue Xarelto. Hypertension Stable Continue home meds. Trend blood pressures. Morbid Obesity: BMI: 48.5 kg/m?. Complicates care. Lifestyle modification recommended. Lymphedema Wound care consult DVT prophylaxis: Xarelto as above. Charges/Coding Visit Charges Inpatient E&M: 18090 Init Hosp L2
--- NOTE | 2022-04-22 04:12 | EDS_ITS ---
HPI History of Present Illness Chief Complaint: Weakness Narrative Narrative: Patient is a 66-year-old male with past medical history of atrial fibrillation currently on Xarelto as well as hypothyroidism and CAD and ischemic colitis. He lives at home alone but does have a home health aide that comes in a few times a week. He states that over the past few weeks he has had increasing generalized weakness to the point where he has difficulty with standing and even walking. He states it is gotten to the point where he is so weak and debilitated that he cannot even stand or take care of himself at this time. Secondary to this he now feels that he would benefit from residential placement and therefore called EMS to bring him in for evaluation. [facility] Medical History Anxiety Back pain [place] Cardiology follow-up encounter CHF (congestive heart failure) Coronary artery disease involving coronary bypass graft Depression Dietary restriction Difficulty chewing Former smoker Graves disease High cholesterol History of atrial fibrillation History of echocardiogram History of edema History of heart attack History of kidney stones History of pain when walking History of renal disease History of stomach ulcers History of stress test Hypertension Ischemic cardiomyopathy Neuropathy Nocturia Rheumatoid arthritis Shortness of breath on exertion Walker as ambulation aid Home Medications atorvastatin 80 mg tablet 80 mg PO QHS cholesterol 07/05/19 [History Last Taken Unknown] bupropion HCl 100 mg tablet 100 mg PO BID depression 07/05/19 [History Last Taken Unknown] buspirone 15 mg tablet 15 mg PO BID anxiety 07/05/19 [History Last Taken Unknown] metoprolol succinate 200 mg tablet,extended release 24 hr 200 mg PO DAILY blood pressure/heart 07/05/19 [History Last Taken Unknown] multivitamin with minerals 1 ea PO DAILY supplement 07/05/19 [History Last Taken Unknown] nitroglycerin 0.4 mg sublingual tablet 0.4 mg sublingual Q5M PRN Chest Pain 07/05/19 [History Last Taken Unknown] ferrous sulfate 325 mg (65 mg iron) tablet 325 mg PO BIDCM supplement #60 tabs 07/09/19 [Rx Last Taken Unknown] pantoprazole 40 mg tablet,delayed release 40 mg PO DAILY gerd #30 tabs 07/09/19 [Rx Last Taken Unknown] spironolactone 25 mg tablet 25 mg PO DAILYCM 07/22/19 [Rx Last Taken Unknown] azathioprine 50 mg tablet 50 mg PO BID 11/29/21 [History Last Taken Unknown] citalopram 40 mg tablet (Celexa) 40 mg PO DAILY 11/29/21 [History Last Taken Unknown] fenofibrate 54 mg tablet 54 mg PO DAILY 11/29/21 [History Last Taken Unknown] lisinopril 5 mg tablet 5 mg PO DAILY 11/29/21 [History Last Taken 12/04/21] pregabalin 50 mg capsule (Lyrica) 50 mg PO BID 11/29/21 [History Last Taken Unknown] rivaroxaban 20 mg tablet (Xarelto) 20 mg PO DAILY 11/29/21 [History Last Taken 12/01/21] sulfasalazine 500 mg tablet 0.5 g PO DAILY 11/29/21 [History Last Taken Unknown] torsemide 20 mg tablet 20 mg PO DAILY 11/29/21 [History Last Taken 12/04/21] Allergy/AdvReac Type Severity Reaction Status Date / Time Penicillins [PCN] Allergy Swelling Verified 04/21/22 22:41 Family History Mother Cancer Father Heart disease Thyroid disorder Hypertension Sister Kidney disease Cancer Diabetes Brother Diabetes Surgical History H/O hernia repair History of cardiac catheterization History of esophagogastroduodenoscopy (EGD) History of incision and drainage Hx of colectomy Hx of colonoscopy Hx of heart bypass surgery S/P cervical spinal fusion S/P right knee arthroscopy Social History Smoking Status: Former smoker ROS ROS ED Constitutional Constitutional ED: Denies chills or fever(s) ENT ENT ED: Denies sore throat Cardiovascular Cardiovascular: Reports palpitations and racing heartbeat; Denies chest pain Respiratory/Chest Respiratory/Chest: Denies cough or dyspnea Gastrointestinal Gastrointestinal: Reports nausea; Denies abdominal pain, diarrhea or vomiting Genitourinary Genitourinary ED: Denies dysuria or hematuria Musculoskeletal Musculoskeletal: Denies myalgias Neurologic Neurologic: Reports weakness; Denies headache(s) Hematologic/Lymphatic Hematologic/Lymphatic: Reports easy bleeding and easy bruising EXAM Physical Exam Const Vital Signs: 04/21/22 22:37 04/21/22 23:28 04/21/22 23:30 Temperature 97.7 F L Temperature Source Temporal Pulse Rate 113 H 140 H Respiratory Rate 18 26 H Respiratory Effort Non-Labored Blood Pressure 108/69 100/75 Blood Pressure Mean 82 83 Pulse Ox 94 95 Oxygen Delivery Method Room Air Room Air 04/22/22 00:08 04/22/22 00:57 04/22/22 02:41 Temperature Temperature Source Pulse Rate 120 H 120 H 97 Respiratory Rate 30 H 20 H 22 H Respiratory Effort Blood Pressure 121/81 H 116/62 Blood Pressure Mean 94 80 Pulse Ox 92 21 95 Oxygen Delivery Method Room Air Room Air Room Air Positive well nourished, well developed and obese General Appearance ED: well developed Nutritional Appearance: obese HEENT Reports dry mucous membranes Mouth ED: Yes dry mucous membranes Mouth: dry mucous membranes Eyes PERRL and EOMs intact bilaterally Neck supple and no JVD Chest Wall palpation of chest normal Resp normal respiratory effort and clear to auscultation bilaterally Resp Narrative: Breath sounds are diminished throughout but overall clear to auscultation Cardio Rate: tachycardic and other Other Details: Irregularly irregular rhythm with tachycardic rate consistent with history of atrial fibrillation GI normal to inspection, nondistended, normoactive bowel sounds, non-tender, non- distended and no masses GI Narrative: Abdomen is obese soft nontender nondistended with normoactive bowel sounds no voluntary guarding or rigidity no pulsatile mass Auscultation: normoactive bowel sounds Palpation: soft Extremity Extremity Narrative: Patient has bilateral +2 pitting edema to the lower extremities that is equal and symmetric with negative Homans' sign bilaterally Neuro oriented x3 and CN's II-XII intact bilaterally Sensorium / Orientation: alert Motor Exam: general weakness Psych mental status grossly normal Skin Skin Narrative: Patient has chronic stasis changes of his lower extremities without secondary changes to suggest acute infection MDM MDM MDM Narrative Medical decision making narrative: Patient presented to the ER tachycardic consistent with A-fib with RVR. His neurologic exam is normal with only generalized weakness nothing focal so therefore I felt no need to activate a stroke alert. As the patient reports he has been sitting around and not moving I did have concern for rhabdomyolysis so a CPK level was added. Basic blood work revealed no clinically significant findings such as severe anemia severe electrolyte derangement or acute kidney injury. Patient was given Cardizem followed by oral metoprolol and his heart rate improved. At this time as the patient is so weak he cannot stand on his own and is not safe for him to return home and I do feel he would benefit from residential placement. Secondary to this I talked to medicine on-call and they do agree with me and accept the patient for admission at this time. Patient does state he is agreeable to residential placement if deemed necessary Lab Data Attestation: I reviewed the patient's lab results. Labs: Laboratory Results - last 24 hr 04/21/22 04/21/22 04/21/22 23:17 23:17 23:17 WBC 8.9 RBC 3.61 L Hgb 11.5 L Hct 34.7 L MCV 96.1 H MCH 31.9 MCHC 33.1 RDW Std Deviation 47.1 H RDW Coeff of Trev 13.2 Plt Count 290 MPV 8.5 Immature Gran % (Auto) 2.100 H Neut % (Auto) 74.2 H Lymph % (Auto) 7.5 L [place] % (Auto) 13.9 H Eos % (Auto) 1.5 Baso % (Auto) 0.8 Absolute Neuts (auto) 6.6 Absolute Lymphs (auto) 0.67 L Nucleated RBC % 0 PT 15.8 H INR 1.3 APTT 38.7 H Sodium 136 Potassium 3.7 Chloride 101 Carbon Dioxide 28.0 Anion Gap 7 BUN 20 H Creatinine 1.24 Estim Creat Clear Calc 62.58 Est GFR (MDRD) Af Amer 74 Est GFR (MDRD) Non-Af 62 BUN/Creatinine Ratio 16.1 Glucose 122 H Calcium 9.5 Magnesium 1.8 Total Creatine Kinase 100 Discharge Plan Dx/Rx/DC Orders Clinical Impression: Debility, Atrial fibrillation, Morbid obesity, 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 Discharge Date/Time: 04/22/22 04:59
[2022-04-22] MEDS: Potassium Chloride Oral Tablet 20 MEQ 30 MEQ PO (06:31)
[2022-04-22 07:14] LABS: Thyroid Stim Hormone (TSH) 4.43 uIU/mL (0.358-3.74)
--- NOTE | 2022-04-22 11:49 | CASEMGMT ---
Social Work SW met w/pt, spoke w/pt about prior level of function and anticipated discharge plan. PCP: Dr. Rogers Specialists: Dr. Gonzalez for cardiology--pt says is retiring though, not sure name of new doctor. Dr. Ortega for thyroid--pt says that he also is getting a new doctor for this and cannot remember the name. Dr. Robb--rheumatology, Dr. Condon--nephrology Pharmacy: Pt gets medications prepackaged with [facility]. He uses [facility] or [facility] if a doctor prescribes something short term. LNOK: Son Jordon, niece Elvira, grandchildren LW/POA: Pt states son Jordon is POA, states he has copies of the documents in a firebox at home Living arrangements: Pt lives alone in an apartment, ramp entry. Pt has aide services for 3 hours, 3-5 times per week, aide helps around the home and w/pt's [employer]adem[employer] boots. Pt's son Jordon or nephew takes pt for appointments, pt no longer drives. Pt states his medications come organized, he was caring for himself before. He was getting Meals on Wheels. He is not able to care for himself anymore however. DME: Ramp, walker, cane, grab bars, raised toilet seat, tub transfer bench SNF/HHC: Pt has been to TCU in the past, has also had [facility]. Pt has services through [facility], Loreto Garrido is . He has aide services 3 times per week. SW spoke w/pt about plan. Pt states he cannot care for himself anymore, and feels he needs to go somewhere to stay, senior care. YASMIN provided to pt a list of half-way facilities via [facility], in network w/pt's insurance, in pt's preferred geographic area, complete with quality and resource use data. Pt would like to review the list and also speak w/family and the doctor, and will let us know choices. YASMIN called Loreto Garrido at [facility], let her know that pt is here, and we will be making a referral to a half-way facility for pt. 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 YASMIN to call Loreto once we know where pt is [phone]. SW will speak w/pt later today and make a referral as appropriate. MOE Pérez
[2022-04-22] MEDS: Metoprolol(XL)Succ 200 MG Tablet PO (12:23)
[2022-04-22] MEDS: buPROPion 100 MG Tablet 150 MG PO ×2 (12:23→21:34)
--- NOTE | 2022-04-22 14:07 | WOUNDNOTE ---
wound photo: left lower leg
--- NOTE | 2022-04-22 14:09 | WOUNDNOTE ---
wound photo: right lower leg
--- NOTE | 2022-04-22 14:09 | WOUNDNOTE ---
wound photo: left medial ankle
[2022-04-22] MEDS: Ferrous Sulfate 325 MG Tablet PO (16:06)
--- NOTE | 2022-04-22 16:18 | CHAPLAIN ---
Type of Pastoral Visit _x__ Initial Visit ___ Follow-up Visit ___ On-call Visit ___ General Patient Visit ___ Spiritual Assessment ___ Family Conference ___ Bereavement ___ Rapid Response ___ Code Blue ___ Other (describe below) Pastoral Care Referral From _x__ Patient ___ Family ___ Nurse ___ Physician ___ Liquefaction And Regasification Helper ___ Blast Furnace Helper ___ Other (describe below) Sacrament/Intervention _x__ Active listening ___ Anointing ___ Islam ___ Bereavement ___ Communion _x__ Irene exploration ___ _x__ Life review _x__ Prayer ___ Reconciliation ___ Sacrament of Sick _x__ Supportive presence ___ Wedding ___ Other (describe below) Pastoral Comments patient stated that 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
--- NOTE | 2022-04-22 17:30 | PCM.PN.BLA ---
Progress Note Still fairly weak and tachycardic. We will resume his home oral medication and potentially start him on a Cardizem drip if it does not control his RVR. He is already fully anticoagulated. Awaiting evaluation by PT/OT
[2022-04-22] MEDS: busPIRone 15 MG TABLET PO (21:32)
[2022-04-22] MEDS: azaTHIOprine 50 MG Tablet PO (21:33)
[2022-04-22] MEDS: Atorvastatin Calcium 80 MG Tablet PO (21:34)
[2022-04-22] MEDS: Pregabalin 50 MG Capsule PO (21:38)
[2022-04-23] VITALS (24 sets, daily range): BP systolic 72–159; BP diastolic 53–111; PULSE 78–100; RESP 14–32; TEMP 36.6–36.9; O2SAT 89–99
[2022-04-23] MEDS: buPROPion 100 MG Tablet 150 MG PO ×3 (05:36→22:41)
[2022-04-23 06:14] LABS: Absolute Lymphocyte Count 0.73 X10^3/uL (0.83-4.51); Absolute Neutrophil Count 8.1 X10^3/uL (2.0-7.7); Basophil# 0.06 X10^3/uL; Basophil% 0.6 % (0-1); Eosinophil# 0.17 X10^3/uL; Eosinophils% 1.7 % (0-5); Hematocrit 35.5 % (40-54); Hemoglobin 11.4 g/dL (13.0-16.5); Lymphocyte # 0.73 X10^3/ul (0.83-4.51); Lymphocyte % 7.1 % (19-41); Mean Corp Hgb Conc 32.1 g/dL (32-36); Mean Corpuscular Hgb 30.8 pg (27.0-32.0); Mean Corpuscular Volume 95.9 fL (80-94); Mean Platelet Vol. 8.6 fl (6.2-12.0); Monocyte% 10.8 % (0-10); NRBC Flagged by Analyzer 0 % (0-5); Neutrophil # 8.09 X10^3/uL (2.7-7.7); Neutrophil % 79.2 % (47-70); Platelet Count 318 K/mm3 (150-450); RBC Distribution Width CV 13.4 % (11.6-14.6); RBC Distribution Width SD 47.7 fl (35.1-43.9); White Blood Count 10.2 K/mm3 (4.4-11.0)
[2022-04-23 06:49] LABS: Anion Gap 9 (5-15); BUN 19 mg/dL (7-18); BUN/Creat Ratio 15.3 RATIO (10-20); Calcium,Total 9.7 mg/dL (8.5-10.1); Chloride 100 mmol/L (98-107); Creatinine, Serum 1.24 mg/dL (0.70-1.30); EST Glomerular Filtration Rate 62 mL/min (>60); Est Glom Filt Rate - Afr Amer 74 mL/min (>60); Estimated Creatinine Clearance 62.58 ml/min; Glucose 113 mg/dL (74-106); Potassium 3.9 mmol/L (3.5-5.1); Sodium Level 135 mmol/L (136-145)
[2022-04-23] MEDS: Ferrous Sulfate 325 MG Tablet PO ×2 (08:34→17:18)
[2022-04-23] MEDS: sulfaSALAzine 500 MG Tablet 1000 MG PO (08:34)
[2022-04-23] MEDS: busPIRone 15 MG TABLET PO ×2 (08:34→22:42)
[2022-04-23] MEDS: Spironolactone 25 MG Tablet PO (08:34)
[2022-04-23] MEDS: Citalopram 40 MG TABLET PO (08:35)
[2022-04-23] MEDS: azaTHIOprine 50 MG Tablet PO ×2 (08:35→22:42)
[2022-04-23] MEDS: Furosemide 40 MG Tablet PO (08:35)
[2022-04-23] MEDS: Metoprolol(XL)Succ 200 MG Tablet PO (08:35)
[2022-04-23] MEDS: Pantoprazole Sodium 40 MG Tablet PO (08:35)
[2022-04-23] MEDS: Lisinopril 5 MG Tablet PO (08:36)
[2022-04-23] MEDS: Pregabalin 50 MG Capsule PO ×2 (08:39→22:44)
[2022-04-23] MEDS: Acetaminophen 325 MG Tablet 650 MG PO (08:39)
--- NOTE | 2022-04-23 11:49 | PCM.PN.HOSP ---
Reason for Visit Reason for Visit: Diagnoses Morbid (severe) obesity due to excess calories (04/23/22) Longstanding persistent atrial fibrillation (04/23/22) Other malaise (04/23/22) Subjective Subjective No issues overnight, he did have some difficulty controlling his heart rate yesterday, currently he still A-fib but heart rate is below 90 Objective Data Objective Data Vital Signs: Vital Signs Temp Pulse Resp BP Pulse Ox O2 Del Method FiO2 98.4 F 91 14 124/63 H 95 Room Air 75 04/23/22 04:00 04/23/22 11:00 04/23/22 11:00 04/23/22 11:00 04/23/22 11:00 04/23/22 11:00 04/23/22 06:00 Oxygen Delivery Method Room Air Weight: 347 lb 7.176 oz Body Mass Index (BMI) 47.1 Intake & Output: Intake and Output for Last 24 Hours 04/22/22 04/23/22 04/24/22 03:59 03:59 03:59 Intake Total 859.50 / 859.50 102.42 / 102.42 Output Total 1150 / 1150 100 / 100 Balance -290.50 / -290.50 2.42 / 2.42 Lab / Micro Data Result Diagrams: 04/23/22 05:55 04/23/22 05:55 Labs: Laboratory Results - last 24 hr 04/23/22 05:55: WBC 10.2, RBC 3.70 L, Hgb 11.4 L, Hct 35.5 L, MCV 95.9 H, MCH 30.8, MCHC 32.1, RDW Std Deviation 47.7 H, RDW Coeff of Trev 13.4, Plt Count 318, MPV 8.6, Immature Gran % (Auto) 0.600, Neut % (Auto) 79.2 H, Lymph % (Auto) 7.1 L, [place] % (Auto) 10.8 H, Eos % (Auto) 1.7, Baso % (Auto) 0.6, Absolute Neuts (auto) 8.1 H, Absolute Lymphs (auto) 0.73 L, Nucleated RBC % 0 04/23/22 05:55: Sodium 135 L, Potassium 3.9, Chloride 100, Carbon Dioxide 26.0, Anion Gap 9, BUN 19 H, Creatinine 1.24, Estim Creat Clear Calc 62.58, Est GFR (MDRD) Af Amer 74, Est GFR (MDRD) Non-Af 62, BUN/Creatinine Ratio 15.3, Glucose 113 H, Calcium 9.7 Physical Exam Narrative General: Alert, Oriented x3, Cooperative, No apparent distress HEENT: Atraumatic, PERRLA, EOMI, Normocephalic Oral: Moist Mucosa Neck: Supple, No JVD Lungs: Diminished, Normal air movement, No rhonchi, No wheeze, No rales Cardiovascular: Regular rate, irregular Rhythm, Normal S1, Normal S2, No murmurs Abdomen: Soft, Non Tender, Non-Distended, No Hepato-splenomegaly Extremities: No edema, Capillary Refill Less than 3 Seconds Skin: No rashes, No breakdown Musculoskeletal: No Tenderness to Palpation of Joints or Extremities Neurological: Cranial nerves II-XII grossly intact, Motor Exam 5/5 strength throughout, Sensory exam intact to light touch and pain Psych/Mental Status: Normal Affect, Appropriate Assessment & Plan Assessment/Plan (1) Debility: (2) Atrial fibrillation: QUALIFIERS: Atrial fibrillation type: longstanding persistent Qualified Code(s): I48.11 - Longstanding persistent atrial fibrillation (3) Morbid obesity: PLAN: Plan 1. A-fib with RVR/HTN/HLD/morbid obesity ? Discussed with him lifestyle modifications, BMI 47.1 ? Restarted his home metoprolol and had a put him on a Cardizem drip we will make adjustments as needed ? We will continue with his cholesterol medication as well as his Xarelto ? We will continue with lisinopril as well as Aldactone and Lasix 2. Rheumatoid arthritis with chronic pain/anxiety/depression ? This is the main cause of his debility and weakness as he feels unstable on his knees as he has [id number] ? He has significant pain in his knees and his shoulders ? We will continue with his home medications ? PT/OT for evaluation and possible placement 3. GERD ? Stable ? Continue with PPI DVT: Xarelto Charges/Coding Visit Charges Inpatient E&M: 82481 Subs Hosp L2
--- NOTE | 2022-04-23 12:06 | CASEMGMT ---
SW spoke with patient regarding his penitentiary choices. Patient said his choices are [facility] and [facility]. Patient said either one would be fine. SW let patient know SW will work on these referrals and let him know. YASMIN sent referrals to both [facility] and [facility] via [facility]. Await responses. Ashley TRINIDAD
--- NOTE | 2022-04-23 14:58 | CASEMGMT ---
SW received notification that [facility]. SW spoke with patient letting him know and asked if he would like to wait on [facility] or just go with [facility]. Patient said he would like to wait on [facility]. SW then received notification that [facility] is unable to accept patient. SW notified patient. Patient then told SW to check with [facility]. YASMIN sent referral to [facility] via [facility]. Less than 5 minutes later [facility] responded via [facility] that they can accept patient. SW will check with patient to see what he would like to do so pre-cert can be initiated. Ashley Ochoa ORNAMENTAL BRICK INSTALLER VIVI
--- NOTE | 2022-04-23 15:36 | CASEMGMT ---
Patient has a Healthcare Power of Logging Assistant and a Healthcare Living Will on file at [facility]. Patient's son Jose is his Healthcare Power of Logging Assistant. Ashley Ochoa MSW VIVI
[2022-04-23] MEDS: Rivaroxaban 20 MG Tablet PO (17:17)
[2022-04-23] MEDS: Atorvastatin Calcium 80 MG Tablet PO (22:41)
[2022-04-23] MEDS: Ondansetron 4 MG/2 ML Vial IV (22:50)
[2022-04-23] MEDS: 0.9% Saline Lock 10 ML Syringe IV (22:53)
[2022-04-24] VITALS (9 sets, daily range): BP systolic 96–110; BP diastolic 51–71; PULSE 93–122; RESP 17–18; TEMP 36.3–36.8; O2SAT 94–95
[2022-04-24] MEDS: buPROPion 100 MG Tablet 150 MG PO ×3 (05:34→21:43)
[2022-04-24 06:41] LABS: Absolute Lymphocyte Count 0.63 X10^3/uL (0.83-4.51); Absolute Neutrophil Count 8.5 X10^3/uL (2.0-7.7); Basophil# 0.04 X10^3/uL; Basophil% 0.4 % (0-1); Eosinophil# 0.14 X10^3/uL; Eosinophils% 1.4 % (0-5); Hematocrit 36.2 % (40-54); Hemoglobin 11.9 g/dL (13.0-16.5); Lymphocyte # 0.63 X10^3/ul (0.83-4.51); Lymphocyte % 6.2 % (19-41); Mean Corp Hgb Conc 32.9 g/dL (32-36); Mean Corpuscular Hgb 30.9 pg (27.0-32.0); Mean Platelet Vol. 8.6 fl (6.2-12.0); Monocyte# 0.85 X10^3/uL; Monocyte% 8.3 % (0-10); NRBC Flagged by Analyzer 0 % (0-5); Neutrophil # 8.52 X10^3/uL (2.7-7.7); Neutrophil % 83.3 % (47-70); Platelet Count 339 K/mm3 (150-450); RBC Distribution Width CV 13.4 % (11.6-14.6); RBC Distribution Width SD 46.1 fl (35.1-43.9); Red Blood Count 3.85 M/mm3 (4.6-6.2); White Blood Count 10.2 K/mm3 (4.4-11.0)
[2022-04-24 07:06] LABS: Anion Gap 10 (5-15); BUN 27 mg/dL (7-18); BUN/Creat Ratio 20.3 RATIO (10-20); Calcium,Total 9.4 mg/dL (8.5-10.1); Chloride 101 mmol/L (98-107); Creatinine, Serum 1.33 mg/dL (0.70-1.30); EST Glomerular Filtration Rate 57 mL/min (>60); Est Glom Filt Rate - Afr Amer 69 mL/min (>60); Estimated Creatinine Clearance 58.35 ml/min; Glucose 113 mg/dL (74-106); Potassium 3.9 mmol/L (3.5-5.1); Sodium Level 136 mmol/L (136-145)
--- NOTE | 2022-04-24 08:41 | CASEMGMT ---
SW checked in with patient and let him know [facility] [place] [facility] able to take him. SW asked which he would prefer. Patient said he would like to go to [facility] [place]. Patient asked how this works and if he is going to stay at [facility] forever. SW let patient know that right now he is going for short term rehab. SW explained that if he does not improve enough to go home then he would switch to skilled nursing. SW explained that he will stay here at [facility] until his insurance approves. SW told him this will likely be tomorrow. Patient asked how he was supposed to get everything out of his apartment. SW let him know that is family will have time to do this while he is in rehab. SW notified Barbie at [facility] via [facility] to go ahead and start the pre-cert. Once Barbie responds that she still has a bed. SW will notify [facility]. Ashley Ochoa PRINTED CIRCUIT BOARD LAYOUT DESIGNER VIVI
[2022-04-24] MEDS: azaTHIOprine 50 MG Tablet PO ×2 (08:56→21:43)
[2022-04-24] MEDS: Ferrous Sulfate 325 MG Tablet PO ×2 (08:57→16:00)
[2022-04-24] MEDS: Spironolactone 25 MG Tablet PO (08:57)
[2022-04-24] MEDS: sulfaSALAzine 500 MG Tablet 1000 MG PO (08:57)
[2022-04-24] MEDS: Citalopram 40 MG TABLET PO (08:58)
[2022-04-24] MEDS: busPIRone 15 MG TABLET PO ×2 (08:58→21:42)
[2022-04-24] MEDS: Metoprolol(XL)Succ 200 MG Tablet PO (08:59)
[2022-04-24] MEDS: Furosemide 40 MG Tablet PO (08:59)
[2022-04-24] MEDS: Pantoprazole Sodium 40 MG Tablet PO (08:59)
[2022-04-24] MEDS: Lisinopril 5 MG Tablet PO (08:59)
--- NOTE | 2022-04-24 09:00 | CASEMGMT ---
YASMIN received a message from Barbie and she will start the pre-cert. YASMIN notified [facility] that patient chose another facility. Await pre-cert for [facility] [place]. Plan: d/c to [facility] pending pre-cert. Ashley TRINIDAD
[2022-04-24] MEDS: 0.9% Saline Lock 10 ML Syringe IV (09:14)
--- NOTE | 2022-04-24 10:03 | ECHOCS_ITS ---
Reason For Study: Afib/Flutter Procedure This was a 2D Doppler, Color Flow transthoracic echocardiogram. The study was technically difficult. Contrast injection was performed. Limited views were obtained. The study was technically limited. Exam performed portable in patient room. Left Ventricle Normal LV size. Mild to moderate global left ventricular systolic dysfunction. The estimated ejection fraction is 40 %. No regional wall motion abnormalities noted. Right Ventricle Normal RV size. Normal systolic function. Mitral Valve Mitral valve not well visualized. Tricuspid Valve Normal tricuspid valve. Aortic Valve The aortic valve is not well visualized in the short axis view. The aortic valve is not well visualized. Pulmonic Valve The pulmonic valve is not well visualized. Great Vessels The aortic root is not well visualized. The pulmonary is not well visualized. Normal inferior vena cava. Pericardium/Pleural No pericardial effusion. Medication Diluted definity 3ml given slow IV push to enhance endocardial definition. MMode/2D Measurements & Calculations LVIDd: 4.6 cm IVSd: 1.5 cm LA dimension: 5.5 cm LVIDs: 4.2 cm LVPWd: 1.1 cm FS: 7.8 % Doppler Measurements & Calculations MV E max alessandra: 105.0 cm/sec MV V2 max: 112.1 cm/sec Ao V2 max: 125.7 cm/sec MV max P.0 mmHg Ao max P.4 mmHg MV V2 mean: 55.2 cm/sec MV mean P.6 mmHg MV V2 VTI: 27.0 cm LV V1 max: 81.1 cm/sec PA V2 max: 121.6 cm/sec LV V1 max P.6 mmHg ECHO/Echo Complete W/ Contrast Interpretation Summary Normal LV size. Mild to moderate global left ventricular systolic dysfunction. The estimated ejection fraction is 40 %. The study was technically limited. The study was technically difficult. Ordering Physician: Alli Ham Performed By: Severino Azevedo RCS
--- NOTE | 2022-04-24 10:04 | PCM.PN.HOSP ---
Reason for Visit Reason for Visit: Diagnoses Morbid (severe) obesity due to excess calories (04/23/22) Longstanding persistent atrial fibrillation (04/23/22) Other malaise (04/23/22) Subjective Subjective No issues overnight was able to come off of his Cardizem drip yesterday but he still little bit tachycardic no lightheadedness or dizziness or chest pain Objective Data Objective Data Vital Signs: Vital Signs Temp Pulse Resp BP Pulse Ox O2 Del Method FiO2 97.9 F 122 H 18 107/63 94 Room Air 75 04/24/22 03:59 04/24/22 08:59 04/24/22 08:45 04/24/22 08:59 04/24/22 07:34 04/24/22 08:45 04/23/22 06:00 Oxygen Delivery Method Room Air Weight: 347 lb 7.176 oz Body Mass Index (BMI) 47.1 Intake & Output: Intake and Output for Last 24 Hours 04/23/22 04/24/22 04/25/22 03:59 03:59 03:59 Intake Total 859.50 / 859.50 602.42 / 602.42 Output Total 1150 / 1150 900 / 900 Balance -290.50 / -290.50 -297.58 / -297.58 Lab / Micro Data Result Diagrams: 04/24/22 06:15 04/24/22 06:15 Labs: Laboratory Results - last 24 hr 04/24/22 06:15: WBC 10.2, RBC 3.85 L, Hgb 11.9 L, Hct 36.2 L, MCV 94.0, MCH 30.9, MCHC 32.9, RDW Std Deviation 46.1 H, RDW Coeff of Trev 13.4, Plt Count 339, MPV 8.6, Immature Gran % (Auto) 0.400, Neut % (Auto) 83.3 H, Lymph % (Auto) 6.2 L, [place] % (Auto) 8.3, Eos % (Auto) 1.4, Baso % (Auto) 0.4, Absolute Neuts (auto) 8.5 H, Absolute Lymphs (auto) 0.63 L, Nucleated RBC % 0 04/24/22 06:15: Sodium 136, Potassium 3.9, Chloride 101, Carbon Dioxide 25.0, Anion Gap 10, BUN 27 H, Creatinine 1.33 H, Estim Creat Clear Calc 58.35, Est GFR (MDRD) Af Amer 69, Est GFR (MDRD) Non-Af 57 L, BUN/Creatinine Ratio 20.3 H, Glucose 113 H, Calcium 9.4 Physical Exam Narrative General: Alert, Oriented x3, Cooperative, No apparent distress HEENT: Atraumatic, PERRLA, EOMI, Normocephalic Oral: Moist Mucosa Neck: Supple, No JVD Lungs: Diminished, Normal air movement, No rhonchi, No wheeze, No rales Cardiovascular: Irregular rate and rhythm, Normal S1, Normal S2, No murmurs Abdomen: Soft, Non Tender, Non-Distended, No Hepato-splenomegaly Extremities: No edema, Capillary Refill Less than 3 Seconds Skin: No rashes, No breakdown Musculoskeletal: No Tenderness to Palpation of Joints or Extremities Neurological: Cranial nerves II-XII grossly intact, Motor Exam 5/5 strength throughout, Sensory exam intact to light touch and pain Psych/Mental Status: Normal Affect, Appropriate Assessment & Plan Assessment/Plan (1) Debility: (2) Atrial fibrillation: QUALIFIERS: Atrial fibrillation type: longstanding persistent Qualified Code(s): I48.11 - Longstanding persistent atrial fibrillation (3) Morbid obesity: PLAN: Plan 1. A-fib with RVR/HTN/HLD/morbid obesity ? Discussed with him lifestyle modifications, BMI 47.1 ? Restarted his home metoprolol we will place him on oral Cardizem and obtain an echo. If his blood pressure drops too much with the addition of Cardizem may need to start him on digoxin or amiodarone at which point we will consult cardiology ? We will continue with his cholesterol medication as well as his Xarelto ? We will continue with lisinopril as well as Aldactone and Lasix 2. Rheumatoid arthritis with chronic pain/anxiety/depression ? This is the main cause of his debility and weakness as he feels unstable on his knees as he has [id number] ? He has significant pain in his knees and his shoulders ? We will continue with his home medications ? PT/OT for evaluation and possible placement 3. GERD ? Stable ? Continue with PPI DVT: Xarelto Charges/Coding Visit Charges Inpatient E&M: 32453 Subs Hosp L2
[2022-04-24] MEDS: Pregabalin 50 MG Capsule PO ×2 (10:46→21:42)
[2022-04-24] MEDS: dilTIAZem 30 MG Tablet PO ×2 (12:42→17:58)
--- NOTE | 2022-04-24 15:42 | CASEMGMT ---
SW received notification that patient was approved for [facility]. Bed will not be available until tomorrow and patient is not ready today. Plan: d/c to [facility] under skilled level of care. Ashley TRINIDAD
[2022-04-24] MEDS: Rivaroxaban 20 MG Tablet PO (16:00)
[2022-04-24] MEDS: Atorvastatin Calcium 80 MG Tablet PO (21:42)
[2022-04-25] MEDS: dilTIAZem 30 MG Tablet PO ×3 (00:58→12:47)
[2022-04-25 03:15] VITALS: BP 101/62; PULSE 89; RESP 17; TEMP 36.7; O2SAT 95
[2022-04-25 05:39] VITALS: PULSE 110; RESP 18
[2022-04-25] MEDS: buPROPion 100 MG Tablet 150 MG PO ×2 (06:26→12:47)
--- NOTE | 2022-04-25 06:29 | NURSING ---
blader scanned pt d/t no output. 465 noted on bladder scanner. will notify provider.
[2022-04-25 06:31] VITALS: BP 105/72; PULSE 96; RESP 18; TEMP 36.4; O2SAT 95
[2022-04-25 07:09] LABS: Anion Gap 5 (5-15); BUN 32 mg/dL (7-18); BUN/Creat Ratio 22.7 RATIO (10-20); Calcium,Total 9.2 mg/dL (8.5-10.1); Chloride 102 mmol/L (98-107); Creatinine, Serum 1.41 mg/dL (0.70-1.30); EST Glomerular Filtration Rate 53 mL/min (>60); Est Glom Filt Rate - Afr Amer 64 mL/min (>60); Estimated Creatinine Clearance 55.04 ml/min; Glucose 107 mg/dL (74-106); Sodium Level 134 mmol/L (136-145)
--- NOTE | 2022-04-25 08:52 | CASEMGMT ---
YASMIN notified patient and physician that patient was approved. Barbie from [facility] asked for patient's social security number as the one [facility] has listed is not coming up in the Medicaid system. SW spoke with patient and [facility] did have patient's SS number wrong by one number. YASMIN fixed this in [facility] system and let Barbie at [facility] know as well. YASMIN also asked patient about bringing in his Azathioprine medication. Patient told SW to call his son Jordon. YASMIN will nathanael Jordon. Plan: d/c to [facility] under skilled level of care. Ashley TRINIDAD
--- NOTE | 2022-04-25 09:41 | PCM.TXEXTCAR ---
Diet Diet Order/Speech Therapy: 04/22/22 05:17 Diet: Cardiac - Heart Healthy Food consistency:: Regular Liquid Consistency:: Regular/Thin Routine Orders/Code Status Routine Lab Work: CBC and BMP Code Status: Full Code Wound(s) left lower leg: Wound Type: scattered small stasis ulcers Dressing Change: Adaptic left medial ankle: Wound Type: thin dry scabbed over wound Dressing Change: dry dressing right lower leg: Wound Type: Stasis Ulcer Dressing Change: Adaptic Therapies Physical Therapy: Eval and Treat Occupational Therapy: Eval and Treat Problem/Diagnosis (1) Debility: Status: Acute Code(s): R53.81 - Other malaise (2) Atrial fibrillation: Status: Chronic Code(s): I48.91 - Unspecified atrial fibrillation (3) Morbid obesity: Status: Acute Code(s): E66.01 - Morbid (severe) obesity due to excess calories Plan 1. A-fib with RVR/HTN/HLD/morbid obesity ? Discussed with him lifestyle modifications, BMI 47.1 ? Restarted his home metoprolol we will place him on oral Cardizem and obtain an echo. If his blood pressure drops too much with the addition of Cardizem may need to start him on digoxin or amiodarone at which point we will consult cardiology ? We will continue with his cholesterol medication as well as his Xarelto ? We will continue with lisinopril as well as Aldactone and Lasix 2. Rheumatoid arthritis with chronic pain/anxiety/depression ? This is the main cause of his debility and weakness as he feels unstable on his knees as he has [id number] ? He has significant pain in his knees and his shoulders ? We will continue with his home medications ? PT/OT for evaluation and possible placement 3. GERD ? Stable ? Continue with PPI DVT: Xarelto Allergies/Procedures Done in Hospital Allergies Penicillins [PCN] Allergy (Verified 04/21/22 22:41) Swelling Procedures: 2-D Echocardiogram Type of Care/Length of Stay Estimated LOS: More Than 30 Days Type of Care Needed: Skilled Rehab Potential: Fair Prognosis: Fair Additional Orders/Day of Discharge Day of Discharge: 04/25/22 Dietary and Speech Recommendations Dietitian Recommendations/Changes: Continue Cardiac diet to manage medical conditions. Discharge Plan Admission Admit Date/Time: 04/23/22 08:24 Attending Provider: Alli Ham Primary Care Provider: Jj Rogers Consulting Providers: Asa Wheat Discharge Orders/Prescriptions Prescriptions: New diltiazem HCl [Cardizem CD] 120 mg capsule,extended release 24hr 120 mg PO QHS Qty: 1 0RF Continued atorvastatin 80 MG tablet 80 mg PO QHS metoprolol succinate 200 MG tablet extended release 24 hr 200 mg PO DAILY bupropion HCl 100 MG tablet 100 mg PO TID Rx Instructions: takes 1 1/2 tablet PO TID buspirone 15 MG tablet 15 mg PO BID nitroglycerin 0.4 MG tablet, sublingual 0.4 mg sublingual Q5M PRN (Reason: Chest Pain) multivitamin with minerals 1 EACH tablet 1 ea PO DAILY pantoprazole 40 MG tablet 40 mg PO DAILY Qty: 30 0RF ferrous sulfate 325 MG tablet 325 mg PO BIDCM Qty: 60 0RF Xarelto 20 mg Tablet 20 mg PO DAILY Rx Instructions: must administer with evening meal sulfasalazine 500 mg Tablet 1 g PO DAILY Rx Instructions: give with food (meal/snack) citalopram [Celexa] 40 mg Tablet 40 mg PO DAILY azathioprine 50 mg Tablet 50 mg PO BID pregabalin [Lyrica] 50 mg Capsule 50 mg PO BID fenofibrate 54 mg Tablet 54 mg PO DAILY simethicone 125 mg Tablet,Chewable 125 mg PO BID cholecalciferol (vitamin D3) 50 mcg (2,000 unit) Tablet 50 mcg PO DAILY Held torsemide 20 mg Tablet 20 mg PO DAILY Hold Instructions: Resume on 04/28/22. lisinopril 5 mg Tablet 5 mg PO DAILY Hold Instructions: Resume on 04/28/22. spironolactone 25 MG tablet 25 mg PO DAILYCM Hold Instructions: Resume on 04/28/22. Referrals / Follow Up: Jj Rogers MD [Primary Care Provider] - Disposition Disposition (needs filled in before D/C Order can be placed): Intermediate Facility (1) Atrial fibrillation Qualifiers: Atrial fibrillation type: longstanding persistent Qualified Code(s): I48.11 - Longstanding persistent atrial fibrillation
[2022-04-25] MEDS: Pregabalin 50 MG Capsule PO (10:09)
[2022-04-25] MEDS: Citalopram 40 MG TABLET PO (10:09)
[2022-04-25] MEDS: sulfaSALAzine 500 MG Tablet 1000 MG PO (10:09)
[2022-04-25] MEDS: azaTHIOprine 50 MG Tablet PO (10:09)
[2022-04-25] MEDS: Pantoprazole Sodium 40 MG Tablet PO (10:09)
[2022-04-25] MEDS: Ferrous Sulfate 325 MG Tablet PO (10:09)
[2022-04-25] MEDS: busPIRone 15 MG TABLET PO (10:09)
[2022-04-25 10:12] VITALS: BP 105/72; PULSE 96
[2022-04-25] MEDS: Metoprolol(XL)Succ 200 MG Tablet PO (10:12)
--- NOTE | 2022-04-25 10:40 | PHA.DC.MR ---
Pharmacy Service has performed discharge medication reconciliation for this patient. The patient's discharge medication list was reviewed for discrepancies and discrepancies were resolved. Home Medications atorvastatin 80 mg tablet 80 mg PO QHS cholesterol 07/05/19 bupropion HCl 100 mg tablet 100 mg PO TID depression 07/05/19 buspirone 15 mg tablet 15 mg PO BID anxiety 07/05/19 metoprolol succinate 200 mg tablet,extended release 24 hr 200 mg PO DAILY blood pressure/heart 07/05/19 multivitamin with minerals 1 ea PO DAILY supplement 07/05/19 nitroglycerin 0.4 mg sublingual tablet 0.4 mg sublingual Q5M PRN Chest Pain 07/05/19 ferrous sulfate 325 mg (65 mg iron) tablet 325 mg PO BIDCM supplement #60 tabs 07/09/19 pantoprazole 40 mg tablet,delayed release 40 mg PO DAILY gerd #30 tabs 07/09/19 azathioprine 50 mg tablet 50 mg PO BID 11/29/21 citalopram 40 mg tablet (Celexa) 40 mg PO DAILY antidepressant 11/29/21 fenofibrate 54 mg tablet 54 mg PO DAILY cholesterol 11/29/21 lisinopril 5 mg tablet 5 mg PO DAILY 11/29/21 pregabalin 50 mg capsule (Lyrica) 50 mg PO BID anxiety 11/29/21 rivaroxaban 20 mg tablet (Xarelto) 20 mg PO DAILY blood thinner 11/29/21 sulfasalazine 500 mg tablet 1 g PO DAILY arthritis 11/29/21 torsemide 20 mg tablet 20 mg PO DAILY health maintenance 11/29/21 cholecalciferol (vitamin D3) 50 mcg (2,000 unit) tablet 50 mcg PO DAILY health maintenance 04/22/22 simethicone 125 mg chewable tablet 125 mg PO BID Gas 04/22/22 spironolactone 25 mg tablet 25 mg PO DAILYCM health maintenance 04/22/22 diltiazem HCl 120 mg capsule,extended release 24 hr (Cardizem CD) 120 mg PO QHS #1 cap 04/25/22
--- NOTE | 2022-04-25 11:23 | CASEMGMT ---
YASMIN arranged for patient to get picked up at 2p via wheelchair by [facility]. YASMIN sent orders, COVID test, and cook pickled meat time to [facility] via [facility]. YASMIN notified RN, statistical secretary, and [facility] of cook pickled meat time. YASMIN called patient's son Jordon and left him a voice mail letting him know patient will need his Azathioprine medication brought in from home. YASMIN will check back again to make sure he received the message. YASMIN called Loreto Hema, patient's CM at [facility] and left her a voice mail with patient's discharge information. Plan: d/c to [facility] under skilled level of care on a PASRR. YASMIN arranged for patient to get picked up at 2p via wheelchair by [facility]. Ashley Ochoa LAY OUT FORMER MANAGER SAP
[2022-04-25 12:00] VITALS: BP 112/74; PULSE 91; RESP 18; TEMP 36.6; O2SAT 96
--- NOTE | 2022-04-25 12:20 | DS.PCM_ITS ---
Providers Date of Admission: 04/23/22 Primary Care Physician: Dr. Jj Rogers MD Consultations 04/22/22 05:17 Consult: Onc/Wound/armor reconnaissance specialist Routine Comment: Reason for Consult:: Lymphedema Reason For Visit: DEBILITY,A-FIB Diagnosis Discharge Diagnosis (1) Debility: Status: Acute Code(s): R53.81 - Other malaise (2) Atrial fibrillation: Status: Chronic Code(s): I48.91 - Unspecified atrial fibrillation Qualifiers: Atrial fibrillation type: longstanding persistent Qualified Code(s): I48.11 - Longstanding persistent atrial fibrillation (3) Morbid obesity: Status: Acute Code(s): E66.01 - Morbid (severe) obesity due to excess calories Medications at Discharge Home Medications atorvastatin 80 mg tablet 80 mg PO QHS cholesterol 07/05/19 bupropion HCl 100 mg tablet 100 mg PO TID depression 07/05/19 buspirone 15 mg tablet 15 mg PO BID anxiety 07/05/19 metoprolol succinate 200 mg tablet,extended release 24 hr 200 mg PO DAILY blood pressure/heart 07/05/19 multivitamin with minerals 1 ea PO DAILY supplement 07/05/19 nitroglycerin 0.4 mg sublingual tablet 0.4 mg sublingual Q5M PRN Chest Pain 07/05/19 ferrous sulfate 325 mg (65 mg iron) tablet 325 mg PO BIDCM supplement #60 tabs 07/09/19 pantoprazole 40 mg tablet,delayed release 40 mg PO DAILY gerd #30 tabs 07/09/19 azathioprine 50 mg tablet 50 mg PO BID 11/29/21 citalopram 40 mg tablet (Celexa) 40 mg PO DAILY antidepressant 11/29/21 fenofibrate 54 mg tablet 54 mg PO DAILY cholesterol 11/29/21 lisinopril 5 mg tablet 5 mg PO DAILY 11/29/21 pregabalin 50 mg capsule (Lyrica) 50 mg PO BID anxiety 11/29/21 rivaroxaban 20 mg tablet (Xarelto) 20 mg PO DAILY blood thinner 11/29/21 sulfasalazine 500 mg tablet 1 g PO DAILY arthritis 11/29/21 torsemide 20 mg tablet 20 mg PO DAILY health maintenance 11/29/21 cholecalciferol (vitamin D3) 50 mcg (2,000 unit) tablet 50 mcg PO DAILY health maintenance 04/22/22 simethicone 125 mg chewable tablet 125 mg PO BID Gas 04/22/22 spironolactone 25 mg tablet 25 mg PO DAILY health maintenance 04/22/22 diltiazem HCl 120 mg capsule,extended release 24 hr (Cardizem CD) 120 mg PO QHS #1 cap 04/25/22 Hospital Course Operations None Procedures 2-D Echocardiogram Summary of Care Provided Minutes Spent on Discharge: 38 Hospital Course: Per HPI: DEMIAN NELSON, is a 66 M with a significant history of a quadruple CABG about 4 years ago; CAD status post coronary stent about 2 years ago; atrial fibrillation on Xarelto; and rheumatoid arthritis who presents to the emergency department with weakness.? Reportedly patient is weak and fatigue? and unable to stand up.? He report that he has [id number] arthritis on bilateral knees causing pain in his bilateral knees.? Previously patient used to use a cane but now he uses a walker if he can get up.? However he is unable to get up and use the walker.? Of note patient have a home health aide who comes to her house about 3 times in a week to help? take care of patient.? On presentation at the emergency department patient was found to be in atrial fibrillation with RVR and he received Cardizem IV and metoprolol p.o. Hospital Course: 1. A-fib with RVR/HTN/HLD/morbid obesity?66-year-old male with a history of A- fib presents to the hospital with fatigue and palpitations. He is also been noticing increased weakness and debility with an inability to complete ADLs at home. His heart rate was elevated and was needed to be on a Cardizem drip for a day. This has been discontinued and he was transitioned to p.o. Cardizem as well as p.o. metoprolol, held off on digoxin secondary to his Aldactone and being on multiple medications that can affect renal function. He has had decent control of his A-fib rate with the Cardizem and beta-zaira. Given his increased weakness in his bilateral knee pain from his rheumatoid arthritis we had physical therapy and Occupational Therapy evaluated who recommended placement. He did receive pre-CERT today and I discussed with him the plan for discharge and he expressed understanding of the risk benefits of going and would like to go today. Of note his creatinine did increase a little bit to 1.4 baseline is around 1 and he was having some urinary retention so he was straight cath and I do recommend holding his lisinopril, torsemide, Aldactone for a few days and checking a BMP as an outpatient while at the senior care prior to restarting these 3 medications. He also did have an echo which showed an EF of 40% I do not have another echo in our system so I do think it would be beneficial for him to follow-up with cardiology outpatient for monitoring and further evaluation. 2. Rheumatoid arthritis with chronic pain, anxiety, depression, GERD are all chronic medical conditions complicates his care. His home medications were continued where appropriate Physical Exam Narrative General: Alert, Oriented x3, Cooperative, No apparent distress HEENT: Atraumatic, PERRLA, EOMI, Normocephalic Oral: Moist Mucosa Neck: Supple, No JVD Lungs: Diminished, Normal air movement, No rhonchi, No wheeze, No rales Cardiovascular: Irregular rate and rhythm, Normal S1, Normal S2, No murmurs Abdomen: Soft, Non Tender, Non-Distended, No Hepato-splenomegaly Extremities: Edema, Capillary Refill Less than 3 Seconds, extremities are wrapped Skin: No rashes, No breakdown Musculoskeletal: No Tenderness to Palpation of Joints or Extremities Neurological: Cranial nerves II-XII grossly intact, Motor Exam 5/5 strength throughout, Sensory exam intact to light touch and pain Psych/Mental Status: Normal Affect, Appropriate Weight / BMI Weight Weight: 347 lb 7.176 oz Body Mass Index (BMI) 47.1 ABG / Lab / Microbiology Data Result Diagrams: 04/24/22 06:15 04/25/22 06:35 Laboratory: Laboratory Results - last 24 hr 04/25/22 06:35: Sodium 134 L, Potassium 4.0, Chloride 102, Carbon Dioxide 27.0, Anion Gap 5, BUN 32 H, Creatinine 1.41 H, Estim Creat Clear Calc 55.04, Est GFR (MDRD) Af Amer 64, Est GFR (MDRD) Non-Af 53 L, BUN/Creatinine Ratio 22.7 H, Glucose 107 H, Calcium 9.2 Microbiology: Microbiology 04/25/22 10:17 Nasal Secretion SARS-CoV-2 Antigen (Rapid) - Final Radiography Diagnostic Testing: Radiology Impression Echocardiogram 04/24/22 10:03 Interpretation Summary Normal LV size. Mild to moderate global left ventricular systolic dysfunction. The estimated ejection fraction is 40 %. The study was technically limited. The study was technically difficult. Ordering Physician: Alli Ham Performed By: Severino Azevedo RCS Meaningful Use Info Meaningful Use Diagnoses (Choose all that apply): None applicable Discharge Plan Admission Admit Date/Time: 04/23/22 08:24 Attending Provider: Alli Ham Primary Care Provider: Jj Rogers Consulting Providers: Asa Wheat Discharge Orders/Prescriptions Prescriptions: New diltiazem HCl [Cardizem CD] 120 mg capsule,extended release 24hr 120 mg PO QHS Qty: 1 0RF Continued atorvastatin 80 MG tablet 80 mg PO QHS metoprolol succinate 200 MG tablet extended release 24 hr 200 mg PO DAILY bupropion HCl 100 MG tablet 100 mg PO TID Rx Instructions: takes 1 1/2 tablet PO TID buspirone 15 MG tablet 15 mg PO BID nitroglycerin 0.4 MG tablet, sublingual 0.4 mg sublingual Q5M PRN (Reason: Chest Pain) multivitamin with minerals 1 EACH tablet 1 ea PO DAILY pantoprazole 40 MG tablet 40 mg PO DAILY Qty: 30 0RF ferrous sulfate 325 MG tablet 325 mg PO BIDCM Qty: 60 0RF Xarelto 20 mg Tablet 20 mg PO DAILY Rx Instructions: must administer with evening meal sulfasalazine 500 mg Tablet 1 g PO DAILY Rx Instructions: give with food (meal/snack) citalopram [Celexa] 40 mg Tablet 40 mg PO DAILY azathioprine 50 mg Tablet 50 mg PO BID pregabalin [Lyrica] 50 mg Capsule 50 mg PO BID fenofibrate 54 mg Tablet 54 mg PO DAILY simethicone 125 mg Tablet,Chewable 125 mg PO BID cholecalciferol (vitamin D3) 50 mcg (2,000 unit) Tablet 50 mcg PO DAILY Held torsemide 20 mg Tablet 20 mg PO DAILY Hold Instructions: Resume on 04/28/22. lisinopril 5 mg Tablet 5 mg PO DAILY Hold Instructions: Resume on 04/28/22. spironolactone 25 MG tablet 25 mg PO DAILYCM Hold Instructions: Resume on 04/28/22. Referrals / Follow Up: Jj Rogers MD [Primary Care Provider] - Disposition Disposition (needs filled in before D/C Order can be placed): [facility] Facility Charges/Coding Visit Charges Inpatient E&M: 35401 Disch Hosp >30min
--- NOTE | 2022-04-25 13:13 | NURSING ---
Physician's just called to let us know their crew is running about 15min behind schedule and is due to be here around 1415.
--- NOTE | 2022-04-25 13:16 | CASEMGMT ---
SW attempted to call patient's son again and it went straight to voice mail again. YASMIN notified Barbie at [facility] via [facility] that she will need to get a hold of patient's son to have him bring in the medication they asked patient to bring in from home. Ashley Ochoa [employer]
== END 2022-04-25 14:27 | disposition skilled nursing facility (03) | DRG 309 ==
LOC: ED 04-22 04:18 → PCU 04-22 04:40
PROVIDERS: Admitting Provider Hospitalist; Emergency Provider Emergency Medicine; PCP Family Medicine; Visit Provider Family Medicine
DX: I48.11 Longstanding persistent atrial fibrillation (principal); Z68.42 Body mass index [BMI] 45.0-49.9, adult; I25.810 Atherosclerosis of coronary artery bypass graft(s) without angina pectoris; I11.0 Hypertensive heart disease with heart failure; I50.9 Heart failure, unspecified; Z95.1 Presence of aortocoronary bypass graft; E66.01 Morbid (severe) obesity due to excess calories; M06.9 Rheumatoid arthritis, unspecified; M17.0 Bilateral primary osteoarthritis of knee; E78.00 Pure hypercholesterolemia, unspecified; K21.9 Gastro-esophageal reflux disease without esophagitis; F41.9 Anxiety disorder, unspecified; G89.29 Other chronic pain; F32.A Depression, unspecified; R53.81 Other malaise; Z20.822 Contact with and (suspected) exposure to COVID-19; Z79.01 Long term (current) use of anticoagulants; Z79.899 Other long term (current) drug therapy; Z87.891 Personal history of nicotine dependence; Z95.5 Presence of coronary angioplasty implant and graft
CPT/HCPCS: 36415; 80048; 82550; 83735; 84443; 85025; 85610; 85730; 87426; 93005; 93306; 97162; 97166; 97530; 97535; 99285; J7040; Q9957; A4216; C8929; J2405

== ENCOUNTER 2022-05-14 12:42 | Inpatient (IN) | payer MEDICARE, MEDICAID, SELFPAY ==
[2022-05-14] VITALS (18 sets, daily range): BP systolic 83–140; BP diastolic 57–111; PULSE 85–136; RESP 12–26; TEMP 36.7–37.9; O2SAT 94–99; BMI 44.6; BMI 43.0
--- NOTE | 2022-05-14 12:58 | CT_ITS ---
STUDY: CT BRAIN WITHOUT CONTRAST REASON FOR EXAM: Male, 66 years old. Mental status change RADIATION DOSAGE (If Supplied By Facility): CTDIvol = ( 44.99 ) mGy, DLP = ( 812.98 ) mGycm TECHNIQUE: Transaxial CT imaging of the brain was performed without administration of intravenous contrast material. Individualized dose optimization techniques were used for this CT. COMPARISON: No relevant priors. FINDINGS: Normal soft tissue structures. Normal calvarium. There is mild cerebral atrophy with widening of the extra-axial spaces and ventricular dilatation. There are areas of decreased attenuation within the white matter tracts of the supratentorial brain, consistent with microvascular disease changes. Normal basal ganglia and thalami. Normal brainstem. Normal cerebellum. There is no intracranial hemorrhage. There are no findings of an acute ischemic infarction. There is mucoperiosteal inflammatory disease of the paranasal sinuses consistent with mild chronic sinusitis. CT/Brain/Head without Contrast IMPRESSION: Chronic involutional changes of the brain. No acute hemorrhage Electronically Signed: Asael Joyce MD at 14:21 EST ,
[2022-05-14 13:30] LABS: Allen Test Positive; Base Excess 5 mmol/L (-2 to +2); Blood Gas Specimen Type ART; O2 Delivery Device Cannula; PO2 96 mmHG (75-100); SITE R Radial; SO2 98 % (95-99); Total Carbon Dioxide 30 mmol/L; pCO2 41.5 mmHg (35-45); pH 7.45 (7.35-7.45)
--- NOTE | 2022-05-14 13:30 | ED.RN ---
RN AT THE BEDSIDE TO ADMINISTER CARDIZEM 10MG IVP. RN NOTICED PT'S BP WAS 101/62, RN DECIDED TO RECYCLE BP AT THIS TIME, BP WAS 77/66. DR. ROSENBERG NOTIFIED AT THIS TIME, 2.5MG OF CARDIZEM ADMINISTERED WHILE BP WAS CYCLING BASED ON PREVIOUS BP.
[2022-05-14 13:33] LABS: Absolute Lymphocyte Count 0.85 X10^3/uL (0.83-4.51); Absolute Neutrophil Count 9.6 X10^3/uL (2.0-7.7); Basophil# 0.07 X10^3/uL; Basophil% 0.6 % (0-1); Eosinophil# 0.21 X10^3/uL; Eosinophils% 1.8 % (0-5); Hematocrit 32.3 % (40-54); Hemoglobin 10.7 g/dL (13.0-16.5); Lymphocyte # 0.85 X10^3/ul (0.83-4.51); Lymphocyte % 7.1 % (19-41); Mean Corp Hgb Conc 33.1 g/dL (32-36); Mean Corpuscular Hgb 30.7 pg (27.0-32.0); Mean Corpuscular Volume 92.8 fL (80-94); Mean Platelet Vol. 8.9 fl (6.2-12.0); Monocyte# 1.12 X10^3/uL; Monocyte% 9.4 % (0-10); NRBC Flagged by Analyzer 0 % (0-5); Neutrophil % 80.5 % (47-70); Platelet Count 368 K/mm3 (150-450); RBC Distribution Width CV 13.9 % (11.6-14.6); RBC Distribution Width SD 47.3 fl (35.1-43.9); Red Blood Count 3.48 M/mm3 (4.6-6.2); White Blood Count 11.9 K/mm3 (4.4-11.0)
[2022-05-14 13:49] LABS: ALB/GLOB Ratio 0.3 RATIO (0.9-2.4); AST(SGOT) 43 U/L (15-37); Alanine Aminotransfer ALT/SGPT 20 U/L (16-61); Alkaline Phosphatase 57 U/L (45-117); Anion Gap 9 (5-15); BUN 41 mg/dL (7-18); BUN/Creat Ratio 22.8 RATIO (10-20); Calcium,Total 9.5 mg/dL (8.5-10.1); Chloride 98 mmol/L (98-107); EST Glomerular Filtration Rate 40 mL/min (>60); Est Glom Filt Rate - Afr Amer 48 mL/min (>60); Estimated Creatinine Clearance 43.11 ml/min; Glucose 106 mg/dL (74-106); Potassium 3.6 mmol/L (3.5-5.1); Sodium Level 136 mmol/L (136-145)
--- NOTE | 2022-05-14 14:05 | RAD_ITS ---
STUDY: X-RAY CHEST REASON FOR EXAM: Male, 66 years old. Shortness of breath TECHNIQUE: Single AP portable view of the chest. COMPARISON: 07/14/2019 FINDINGS: EKG leads overlie the chest. Previously noted right-sided PICC line has been removed. Chronic interstitial changes without a superimposed acute pulmonary process. Normal size heart. Normal mediastinum and bhupinder. Normal visualized pulmonary arteries. Normal visualized aortic arch and descending thoracic aorta. Normal visualized thoracic spine. Normal visualized ribs, clavicles, and shoulders. There is no demonstrated abnormality of the visualized soft tissue structures of the upper abdomen. RAD/Chest 1 View (Portable) IMPRESSION: Chronic interstitial changes, no superimposed acute pulmonary process Electronically Signed: Asael Joyce MD at 14:22 EST ,
[2022-05-14] MEDS: 0.9% Normal Saline 1,000 ML 500 ML IV (14:15)
[2022-05-14 14:40] LABS: Lactic Acid 1.3 mmol/L (0.4-1.9)
--- NOTE | 2022-05-14 14:40 | EX.ED.DYSGE1 ---
HPI History of Present Illness Chief Complaint: Alt LOC Narrative Narrative: 66-year-old male presents from rehab dilatation facility with reported mental status change. He states that he is fatigued, and tired, and can barely keep his eyes open. He denies any pain. He was reported by the ER that the patient was hypotensive, and unresponsive. He also was reported to have a low pulse ox. He has past medical history of obstructive sleep apnea, atrial fibrillation, hypertension, and depression. He states that he has been at this facility for the last few weeks mainly for rehab after hospitalization. [facility] Medical History Anxiety Back pain Blackout Cardiology follow-up encounter CHF (congestive heart failure) Coronary artery disease involving coronary bypass graft Depression Dietary restriction Difficulty chewing Former smoker Graves disease High cholesterol History of atrial fibrillation History of echocardiogram History of edema History of heart attack History of kidney stones History of pain when walking History of renal disease History of stomach ulcers History of stress test Hypertension Ischemic cardiomyopathy Neuropathy Nocturia Rheumatoid arthritis Shortness of breath on exertion Walker as ambulation aid Home Medications atorvastatin 80 mg tablet 80 mg PO QHS CHOLESTEROL 07/05/19 [History Last Taken 05/13/22] bupropion HCl 100 mg tablet 150 mg PO TID DEPRESSION 07/05/19 [History Last Taken 05/14/22] buspirone 15 mg tablet 15 mg PO BID ANXIETY 07/05/19 [History Last Taken 05/14/22] metoprolol succinate 200 mg tablet,extended release 24 hr 200 mg PO DAILY BLOOD PRESSURE 07/05/19 [History Last Taken 05/14/22] multivitamin with minerals 1 ea PO DAILY HEALTH MAINTENANCE 07/05/19 [History Last Taken 05/14/22] nitroglycerin 0.4 mg sublingual tablet 0.4 mg sublingual Q5M PRN CHEST PAIN 07/05/19 [History Last Taken Unknown] azathioprine 50 mg tablet 50 mg PO BID RHEUMATOID ARTHRITIS 11/29/21 [History Last Taken 05/14/22] fenofibrate 54 mg tablet 54 mg PO DAILY CHOLESTEROL 11/29/21 [History Last Taken 05/14/22] lisinopril 5 mg tablet 5 mg PO DAILY BLOOD PRESSURE 11/29/21 [History Last Taken 05/14/22] pregabalin 50 mg capsule (Lyrica) 50 mg PO BID PAIN 11/29/21 [History Last Taken 05/14/22] rivaroxaban 20 mg tablet (Xarelto) 20 mg PO QPM BLOOD THINNER 11/29/21 [History Last Taken 05/13/22] sulfasalazine 500 mg tablet 1,000 mg PO DAILY RHEUMATOID ARTHRITIS 11/29/21 [History Last Taken 05/13/22 12:00] torsemide 20 mg tablet 20 mg PO DAILY CONGESTIVE HEART FAILURE 11/29/21 [History Last Taken 05/14/22] cholecalciferol (vitamin D3) 50 mcg (2,000 unit) tablet 50 mcg PO DAILY SUPPLEMENT 04/22/22 [History Last Taken 05/14/22] simethicone 125 mg chewable tablet 125 mg PO BID GAS RELIEF 04/22/22 [History Last Taken 05/14/22] spironolactone 25 mg tablet 25 mg PO DAILYCM CONGESTIVE HEART FAILURE 04/22/22 [History Last Taken 05/13/22 12:00] bisacodyl 10 mg rectal suppository [address] DAILY PRN CONSTIPATION 05/14/22 [History Last Taken Unknown] citalopram 20 mg tablet 20 mg PO DAILY DEPRESSION 05/14/22 [History Last Taken 05/14/22] diltiazem HCl 120 mg capsule,extended release 24 hr (Cardizem CD) 120 mg PO QHS BLOOD PRESSURE 05/14/22 [History Last Taken 05/13/22] ferrous sulfate 325 mg (65 mg iron) tablet 325 mg PO BIDCM SUPPLEMENT 05/14/22 [History Last Taken 05/14/22 08:00] omeprazole 20 mg capsule,delayed release 20 mg PO DAILY ACID REFLUX 05/14/22 [History Last Taken 05/14/22] tramadol 50 mg tablet 50 mg PO Q8H PRN PAIN 05/14/22 [History Last Taken Unknown] Allergy/AdvReac Type Severity Reaction Status Date / Time Penicillins [PCN] Allergy Swelling Verified 05/14/22 12:51 Family History Mother Cancer Father Heart disease Thyroid disorder Hypertension Sister Kidney disease Cancer Diabetes Brother Diabetes Surgical History H/O hernia repair History of cardiac catheterization History of esophagogastroduodenoscopy (EGD) History of incision and drainage Hx of colectomy Hx of colonoscopy Hx of heart bypass surgery S/P cervical spinal fusion S/P right knee arthroscopy Social History Smoking Status: Former smoker ROS ROS ED ROS Narrative Constitutional: No fever, no chills. Positive fatigue. HEENT: No sore throat. No neck pain. No loss of vision. No rhinorrhea. Cardiovascular: No chest pain. No palpitations. No pedal edema. Respiratory: No cough, no shortness of breath. Abdominal: No abdominal pain. No nausea. No vomiting. Genitourinary: No dysuria. No hematuria. Musculoskeletal: No myalgias. No arthralgias. Neurologic: No headaches. No dizziness. No lightheadedness. Skin: No rash. No change in color. Psychiatric: No depression. No anxiety. EXAM Physical Exam Narrative Exam Narrative: Afebrile. Vital signs noted. HEENT: Normocephalic. Atraumatic. PERRL, EOMI. Neck soft and supple. No point tenderness or step off. Cardiovascular: Irregularly irregular tachycardia. No murmurs, rubs, or gallops appreciated. Respiratory: No tachypnea. Lungs clear to auscultation bilaterally. Gastrointestinal: Abdomen soft, nontender, with normoactive bowel sounds. No rebound or guarding. Genitourinary: Indwelling Smith catheter. Neurological: Awake. Alert. Nonfocal, nonlateralizing. Skin: No rash. Normal color. No pallor. Musculoskeletal: No pedal edema. Full range of motion extremities. Const Vital Signs: 05/14/22 12:45 05/14/22 13:14 05/14/22 13:16 Temperature 98.9 F Temperature Source Temporal Pulse Rate 122 H 113 H Respiratory Rate 26 H 24 H Blood Pressure 140/111 H Blood Pressure Mean 120 Pulse Ox 97 97 97 Oxygen Delivery Method Nasal Cannula Nasal Cannula Nasal Cannula Oxygen Flow Rate (L/min) 56 5 4 05/14/22 14:14 05/14/22 14:39 05/14/22 15:00 Temperature 99.8 F H 100.0 F H 100.2 F H Temperature Source Core Core Core Pulse Rate 136 H 122 H 103 H Respiratory Rate 22 H 21 H 21 H Blood Pressure 83/64 L 97/70 92/62 Blood Pressure Mean 70 79 72 Pulse Ox 96 97 95 Oxygen Delivery Method Nasal Cannula Nasal Cannula Oxygen Flow Rate (L/min) 2 2 05/14/22 16:01 Temperature 99.8 F H Temperature Source Core Pulse Rate 117 H Respiratory Rate 26 H Blood Pressure 109/79 Blood Pressure Mean 89 Pulse Ox 94 Oxygen Delivery Method Nasal Cannula Oxygen Flow Rate (L/min) 2 MDM MDM MDM Narrative Medical decision making narrative: Comprehensive work-up was pursued for the patient's reported mental status change. Initially he was normotensive if not hypertensive, but repeat blood pressure taken by RN shows him to be 83 systolic, but he is still mentating. Initially, I reviewed his laboratory work. He has a slightly elevated white count of 11.9 which I think is nonspecific, hemoglobin stable at 10.7, platelet count normal at 368. Electrolyte panel was reviewed and he has a normal sodium of 136, potassium normal at 3.6 with CO2 of 29. He has an elevated BUN of 41 with a creatinine of 1.80. Glucose appropriately elevated at 106 with a normal anion gap of 9. With the thought of CO2 retention given his tiredness and reported hypoxia also, I reviewed the ABG which shows a normal pH of 7.45, PCO2 of 41.5, and PO2 of 96. He is not having CO2 retention. For his hypotension, he will be bolused normal saline 1 L intravenously. Lactic acid is normal at 1.3. Ammonia is also normal at 23. I reviewed his reviewed the imaging of his CT brain and see no evidence of mass or hemorrhage. I reviewed the radiology report which confirms my individual interpretation. Additionally, I interpreted his chest x-ray. I see no consolidation, pneumonia, or pneumothorax. I reviewed the radiology report which shows chronic interstitial changes but no acute cardiopulmonary process. His urinalysis is pending, and on the dipstick review, he has leukocytes but no nitrites. I will wait to see if this is the source of his increasing temperature. I am unsure as to the source of his reported mental status change. After fluid bolus, he is normotensive currently. As he is starting to spike a fever, he was administered Tylenol, and he will be swabbed for COVID and influenza. His swab is negative. Additionally, in review of his urinalysis, microanalysis shows no evidence of infection. I am unsure as to the source of his fever, but given his reported mental status change, transient hypotension, and fatigue, I will discuss patient with the hospitalist for at least observation. Antibiotics were also deferred. Patient is in stable condition. History & Record Review Discussion w/independent historian: Patient Additional record(s) reviewed:: Prior ED visit, Prior labs and Other ([facility] paperwork) Lab Data Attestation: I reviewed the patient's lab results. Labs: Laboratory Results - last 24 hr 05/14/22 05/14/22 05/14/22 13:20 13:20 13:20 WBC 11.9 H RBC 3.48 L Hgb 10.7 L Hct 32.3 L MCV 92.8 MCH 30.7 MCHC 33.1 RDW Std Deviation 47.3 H RDW Coeff of Trev 13.9 Plt Count 368 MPV 8.9 Immature Gran % (Auto) 0.600 Neut % (Auto) 80.5 H Lymph % (Auto) 7.1 L [place] % (Auto) 9.4 Eos % (Auto) 1.8 Baso % (Auto) 0.6 Absolute Neuts (auto) 9.6 H Absolute Lymphs (auto) 0.85 Nucleated RBC % 0 Sodium 136 Potassium 3.6 Chloride 98 Carbon Dioxide 29.0 Anion Gap 9 BUN 41 H Creatinine 1.80 H Estim Creat Clear Calc 43.11 Est GFR (MDRD) Af Amer 48 L Est GFR (MDRD) Non-Af 40 L BUN/Creatinine Ratio 22.8 H Glucose 106 Lactic Acid Calcium 9.5 Total Bilirubin 0.70 AST 43 H ALT 20 Alkaline Phosphatase 57 Ammonia 23.0 Total Protein 8.0 Albumin 2.0 L Globulin 6.0 H Albumin/Globulin Ratio 0.3 L Urine Color Urine Clarity Urine pH Ur Specific [place] Urine Protein Urine Glucose (UA) Urine Ketones Urine Occult Blood Urine Nitrite Urine Bilirubin Urine Urobilinogen Ur Leukocyte Esterase Urine RBC Urine WBC Ur Squamous Epith Cells Urine Bacteria Hyaline Casts Urine Mucus 05/14/22 05/14/22 13:20 15:00 WBC RBC Hgb Hct MCV MCH MCHC RDW Std Deviation RDW Coeff of Trev Plt Count MPV Immature Gran % (Auto) Neut % (Auto) Lymph % (Auto) [place] % (Auto) Eos % (Auto) Baso % (Auto) Absolute Neuts (auto) Absolute Lymphs (auto) Nucleated RBC % Sodium Potassium Chloride Carbon Dioxide Anion Gap BUN Creatinine Estim Creat Clear Calc Est GFR (MDRD) Af Amer Est GFR (MDRD) Non-Af BUN/Creatinine Ratio Glucose Lactic Acid 1.3 Calcium Total Bilirubin AST ALT Alkaline Phosphatase Ammonia Total Protein Albumin Globulin Albumin/Globulin Ratio Urine Color Delfina Urine Clarity Sl. Cloudy Urine pH 5.0 Ur Specific [place] 1.025 Urine Protein 30 H Urine Glucose (UA) Normal Urine Ketones 5 H Urine Occult Blood 10 H Urine Nitrite Negative Urine Bilirubin 6 H Urine Urobilinogen 4 H Ur Leukocyte Esterase 25 H Urine RBC 0-5 SEEN Urine WBC 0-5 SEEN Ur Squamous Epith Cells 0 SEEN Urine Bacteria 0 SEEN Hyaline Casts 25-50 SEEN Urine Mucus 0 SEEN ABG Data ABG results: ABG 05/14/22 13:22 Specimen Type ART Sample Site R Radial pH 7.45 Bicarbonate Actual 29.0 H Total CO2 30 Base Excess 5 H O2 Saturation 98 ABG pCO2 41.5 ABG pO2 96 William Test Positive O2 Delivery Device Cannula Liter Flow 4.0 Radiography Diagnostic Testing: Clinical Impression(s) from Imaging Studies Brain CT 05/14/22 12:58 IMPRESSION: Chronic involutional changes of the brain. No acute hemorrhage Electronically Signed: Asael Joyce MD at 14:21 EST , Chest X-Ray 05/14/22 14:05 IMPRESSION: Chronic interstitial changes, no superimposed acute pulmonary process Electronically Signed: Asael Joyce MD at 14:22 EST , Discharge Plan Dx/Rx/DC Orders Clinical Impression: Fever, Atrial fibrillation, Acute alteration in mental status, Fatigue, Transient hypotension Disposition Disposition: [facility]
[2022-05-14] MEDS: Acetaminophen 325 MG Tablet 650 MG PO (15:09)
[2022-05-14 15:16] LABS: Bacteria 0 SEEN /hpf (None Seen); Mucous, Urine 0 SEEN /hpf (<or=2+); Squamous Epithelial Cells - UA 0 SEEN /hpf (0-5)
[2022-05-14] MEDS: 0.9% Normal Saline 1,000 ML 999 ML IV (15:16)
[2022-05-14 15:26] LABS: Color, Urine Amber (Yellow); Glucose, Dipstick Normal (Normal); Ketone-Dipstick 5 mg/dl (Negative); Leukocyte Esterase-Dipstick 25 /ul (Negative); Nitrite-Dipstick Negative (Negative); Occult Blood-Urine 10 /ul (Negative); Protein-Dipstick 30 mg/dl (Negative); Specific Gravity, Urine 1.025 (1.002-1.030); Urine Clarity Sl. Cloudy (Clear); Urine Urobilinogen 4 mg/dl (Normal)
[2022-05-14 15:27] LABS: Urine Bilirubin Dipstick 6 mg/dL (Negative)
--- NOTE | 2022-05-14 15:29 | ED.RN ---
RN UPDATED SON JHON AT THIS TIME.
[2022-05-14 16:25] LABS: Hyaline Cast 25-50 SEEN /lpf (0-5); Red Blood Cells-Urine 0-5 SEEN /hpf (0-5); White Blood Cells 0-5 SEEN /hpf (0-5)
--- NOTE | 2022-05-14 16:29 | HP.PCM.HOS_ITS ---
HPI - General General Date of Admission: 05/14/22 Date of Service: 05/14/22 Chief Complaint: altered mental status HPI Narrative DEMIAN NELSON, is a 66 M with a PMH as outlined who presents via the ED from his SNF with a complaitn of altered mental status, hypoxia and hypotension. He was apparently very lethargic and couldnt really keep his eyes open. He denied any fever, chills, cough, chest pain, palpitations, dizziness, nausea, vomiting or diarrhea. REview of systems is otherwise negative. Vitals at time of review were blood pressure 109/79. His hypotension did respond to fluids. Pulse rate was 117 and respiratory rate was 26 with temperature of 99.8 Fahrenheit. He was saturating at 94% on 2 L of oxygen. CBC showed WBC of 11.9 and hemoglobin of 10.7 with platelets of 368. Chemistry was significant for creatinine of 1.8 and BUN of 41. His baseline creatinine is around 1.2. Urinalysis showed no evidence of UTI. He was noted to be desaturating whilst on room air, and so was placed on BIPAP. He is being admitted to be managed for acute encephalopathy likely due to sleep apnea, as well as hypotension with SIRS criteria/ [facility] History Anxiety Back pain Blackout Cardiology follow-up encounter CHF (congestive heart failure) Coronary artery disease involving coronary bypass graft Depression Dietary restriction Difficulty chewing Former smoker Graves disease High cholesterol History of atrial fibrillation History of echocardiogram History of edema History of heart attack History of kidney stones History of pain when walking History of renal disease History of stomach ulcers History of stress test Hypertension Ischemic cardiomyopathy Neuropathy Nocturia Rheumatoid arthritis Shortness of breath on exertion Walker as ambulation aid Home Medications atorvastatin 80 mg tablet 80 mg PO QHS CHOLESTEROL 07/05/19 [History Last Taken 05/13/22] bupropion HCl 100 mg tablet 150 mg PO TID DEPRESSION 07/05/19 [History Last Taken 05/14/22] buspirone 15 mg tablet 15 mg PO BID ANXIETY 07/05/19 [History Last Taken 05/14/22] metoprolol succinate 200 mg tablet,extended release 24 hr 200 mg PO DAILY BLOOD PRESSURE 07/05/19 [History Last Taken 05/14/22] multivitamin with minerals 1 ea PO DAILY HEALTH MAINTENANCE 07/05/19 [History Last Taken 05/14/22] nitroglycerin 0.4 mg sublingual tablet 0.4 mg sublingual Q5M PRN CHEST PAIN 07/05/19 [History Last Taken Unknown] azathioprine 50 mg tablet 50 mg PO BID RHEUMATOID ARTHRITIS 11/29/21 [History Last Taken 05/14/22] fenofibrate 54 mg tablet 54 mg PO DAILY CHOLESTEROL 11/29/21 [History Last Taken 05/14/22] lisinopril 5 mg tablet 5 mg PO DAILY BLOOD PRESSURE 11/29/21 [History Last Taken 05/14/22] pregabalin 50 mg capsule (Lyrica) 50 mg PO BID PAIN 11/29/21 [History Last Taken 05/14/22] rivaroxaban 20 mg tablet (Xarelto) 20 mg PO QPM BLOOD THINNER 11/29/21 [History Last Taken 05/13/22] sulfasalazine 500 mg tablet 1,000 mg PO DAILY RHEUMATOID ARTHRITIS 11/29/21 [History Last Taken 05/13/22 12:00] torsemide 20 mg tablet 20 mg PO DAILY CONGESTIVE HEART FAILURE 11/29/21 [History Last Taken 05/14/22] cholecalciferol (vitamin D3) 50 mcg (2,000 unit) tablet 50 mcg PO DAILY SUPPLEMENT 04/22/22 [History Last Taken 05/14/22] simethicone 125 mg chewable tablet 125 mg PO BID GAS RELIEF 04/22/22 [History Last Taken 05/14/22] spironolactone 25 mg tablet 25 mg PO DAILYCM CONGESTIVE HEART FAILURE 04/22/22 [History Last Taken 05/13/22 12:00] bisacodyl 10 mg rectal suppository 10 mg DE DAILY PRN CONSTIPATION 05/14/22 [History Last Taken Unknown] citalopram 20 mg tablet 20 mg PO DAILY DEPRESSION 05/14/22 [History Last Taken 05/14/22] diltiazem HCl 120 mg capsule,extended release 24 hr (Cardizem CD) 120 mg PO QHS BLOOD PRESSURE 05/14/22 [History Last Taken 05/13/22] ferrous sulfate 325 mg (65 mg iron) tablet 325 mg PO BIDCM SUPPLEMENT 05/14/22 [History Last Taken 05/14/22 08:00] omeprazole 20 mg capsule,delayed release 20 mg PO DAILY ACID REFLUX 05/14/22 [History Last Taken 05/14/22] tramadol 50 mg tablet 50 mg PO Q8H PRN PAIN 05/14/22 [History Last Taken Unknown] Allergy/AdvReac Type Severity Reaction Status Date / Time Penicillins [PCN] Allergy Swelling Verified 05/14/22 12:51 Family History Mother Cancer Father Heart disease Thyroid disorder Hypertension Sister Kidney disease Cancer Diabetes Brother Diabetes Surgical History H/O hernia repair History of cardiac catheterization History of esophagogastroduodenoscopy (EGD) History of incision and drainage Hx of colectomy Hx of colonoscopy Hx of heart bypass surgery S/P cervical spinal fusion S/P right knee arthroscopy Social History Smoking Status: Former smoker ROS ROS Narrative lethargic, but able to answer questions Review of Systems ROS Unobtainable: Denies due to encephalopathy Constitutional Constitutional: Reports fatigue, malaise and weakness; Denies anorexia, chills or fever(s) Eyes Eyes: Denies change in vision ENT HEENT: Denies ear pain, headache(s), hearing loss or sore throat Cardiovascular Cardiovascular: Reports rapid heart rate; Denies chest pain, dyspnea on exertion, edema, lightheadedness, orthopnea, palpitations or syncope Respiratory/Chest Respiratory/Chest: Denies cough, dyspnea, productive cough, shortness of breath at rest or shortness of breath with exertion Gastrointestinal Gastrointestinal: Denies abdominal pain, constipation, diarrhea, dyspepsia, nausea or vomiting Genitourinary Genitourinary: Denies burning urination or dysuria Musculoskeletal Musculoskeletal: Denies arthralgias Neurologic Neurologic: Reports confusion; Denies dizziness, headache(s), seizures or syncope Vital Signs Vital Signs Vital Signs: 05/14/22 12:45 05/14/22 13:14 05/14/22 13:16 Temperature 98.9 F Temperature Source Temporal Pulse Rate 122 H 113 H Respiratory Rate 26 H 24 H Blood Pressure 140/111 H Blood Pressure Mean 120 Pulse Ox 97 97 97 Oxygen Delivery Method Nasal Cannula Nasal Cannula Nasal Cannula Oxygen Flow Rate (L/min) 56 5 4 05/14/22 14:14 05/14/22 14:39 05/14/22 15:00 Temperature 99.8 F H 100.0 F H 100.2 F H Temperature Source Core Core Core Pulse Rate 136 H 122 H 103 H Respiratory Rate 22 H 21 H 21 H Blood Pressure 83/64 L 97/70 92/62 Blood Pressure Mean 70 79 72 Pulse Ox 96 97 95 Oxygen Delivery Method Nasal Cannula Nasal Cannula Oxygen Flow Rate (L/min) 2 2 05/14/22 16:01 Temperature 99.8 F H Temperature Source Core Pulse Rate 117 H Respiratory Rate 26 H Blood Pressure 109/79 Blood Pressure Mean 89 Pulse Ox 94 Oxygen Delivery Method Nasal Cannula Oxygen Flow Rate (L/min) 2 Weight Weight: 329 lb 9.457 oz Body Mass Index (BMI) 44.6 Physical Exam Const alert Constitutional Narrative: lethargic, super morbid obesity. On BIPAP. HEENT normocephalic, head/scalp atraumatic, hearing grossly normal bilaterally and moist oral mucous membranes Eyes PERRL, EOMs intact bilaterally and conjunctivae normal Neck no lymphadenopathy and supple Resp Resp Narrative: on BIPAP. tachypneic, diminished breath sounds bibasally, no wheezes or crackles. On BIPAP. Cardio S1 normal heart sound and S2 normal heart sound Cardio Narrative: tachypnea, sinus tachycardia GI normal to inspection, nondistended, normoactive bowel sounds, soft to palpation, non-tender and non-distended GI Narrative: obese abdomen Extremity Extremity Narrative: LLE mancini is erythematous and warm and tender to touch; has a thickened callus on the right inner heel of hte LLE, it is erythematous and tender to touch. Erythema of mancini extends up to the mid mancini Skin Skin Narrative: as under extremity Neuro Sensorium / Orientation: awake Motor Exam: strength 5/5 throughout Psych Psych Narrative: lethargic Results Lab / Micro Data Result Diagrams: 05/14/22 13:20 05/14/22 13:20 Labs: Laboratory Results - last 24 hr 05/14/22 13:20: WBC 11.9 H, RBC 3.48 L, Hgb 10.7 L, Hct 32.3 L, MCV 92.8, MCH 30.7, MCHC 33.1, RDW Std Deviation 47.3 H, RDW Coeff of Trev 13.9, Plt Count 368, MPV 8.9, Immature Gran % (Auto) 0.600, Neut % (Auto) 80.5 H, Lymph % (Auto) 7.1 L, [place] % (Auto) 9.4, Eos % (Auto) 1.8, Baso % (Auto) 0.6, Absolute Neuts (auto) 9.6 H, Absolute Lymphs (auto) 0.85, Nucleated RBC % 0 05/14/22 13:20: Sodium 136, Potassium 3.6, Chloride 98, Carbon Dioxide 29.0, Anion Gap 9, BUN 41 H, Creatinine 1.80 H, Estim Creat Clear Calc 43.11, Est GFR (MDRD) Af Amer 48 L, Est GFR (MDRD) Non-Af 40 L, BUN/Creatinine Ratio 22.8 H, Glucose 106, Calcium 9.5, Total Bilirubin 0.70, AST 43 H, ALT 20, Alkaline Phosphatase 57, Total Protein 8.0, Albumin 2.0 L, Globulin 6.0 H, Albumin/Globulin Ratio 0.3 L 05/14/22 13:20: Ammonia 23.0 05/14/22 13:20: Lactic Acid 1.3 05/14/22 15:00: Urine Color Delfina, Urine Clarity Sl. Cloudy, Urine pH 5.0, Ur Specific [place] 1.025, Urine Protein 30 H, Urine Glucose (UA) Normal, Urine Ketones 5 H, Urine Occult Blood 10 H, Urine Nitrite Negative, Urine Bilirubin 6 H, Urine Urobilinogen 4 H, Ur Leukocyte Esterase 25 H, Urine RBC 0-5 SEEN, Urine WBC 0-5 SEEN, Ur Squamous Epith Cells 0 SEEN, Urine Bacteria 0 SEEN, Hyaline Casts 25-50 SEEN, Urine Mucus 0 SEEN Micro: Microbiology 05/14/22 15:30 Nasal Secretion SARS-CoV-2 & FLU Antigen (Rapid) - Final ABG Data ABG results: ABG 05/14/22 13:22 Specimen Type ART Sample Site R Radial pH 7.45 Bicarbonate Actual 29.0 H Total CO2 30 Base Excess 5 H O2 Saturation 98 ABG pCO2 41.5 ABG pO2 96 William Test Positive O2 Delivery Device Cannula Liter Flow 4.[address] 05/14/22 12:58 IMPRESSION: Chronic involutional changes of the brain. No acute hemorrhage Electronically Signed: Asael Joyce MD at 14:21 EST , Chest X-Ray 05/14/22 14:05 IMPRESSION: Chronic interstitial changes, no superimposed acute pulmonary process Electronically Signed: Asael Joyce MD at 14:22 EST , Assessment & Plan Assessment/Plan (1) Acute alteration in mental status: PLAN: Plan #Acute metabolic encephalopathy * Patient was hypotensive and hypoxic on admission and found to be tachycardic, tachypneic and also had a fever. He was initially hypotensive but this responded to normal saline. * ABG done did not really show elevated PCO2 patient was noted to be saturating in the ED. He is on Xarelto and so my suspicion for PE is lower. * I do think patient's symptoms are likely from sepsis due to left lower extre mity cellulitis. * Will start patient on IV vancomycin and Zosyn. * Blood cultures obtained. Urinalysis showed no evidence of UTI. * Titrate oxygen on BiPAP to maintain saturation above 90%. * Admit to PCU. Low transfer transferred to ICU. * Continue hydration with IV fluids. * #Hypoxia: Likely due to narcolepsy and sleep apnea. On BiPAP as above. Hold all sedative medications. #SIRS criteria likely due to left lower extremity cellulitis: As above. Consult wound care #Hypotension: This responded to fluids. We will hold all blood pressure medications. #A-fib: * Patient is tachycardic but does not seem to be in A-fib with RVR. * Looks like it is more driven by the underlying medical condition. * Hold Cardizem for now due to hypotension and hold metoprolol as well. * On Xarelto. * #Chronic heart failure reduced ejection fraction: * On torsemide and spironolactone as well as metoprolol and lisinopril. * We will hold all of these on account of hypotension. * has known EF of 40% #History of rheumatoid arthritis: On sulfasalazine and azathioprine #Hyperlipidemia: On statin GERD: On PPI #ALEJANDRA: Currently on BiPAP as above. #Super morbid obesity: BMI is 44.7. Complicates acute care, expected recovery and prognosis. CODE STATUS: Full code * Patient counseled extensively about different types of CODE STATUS including full code, DNR CCA and DNR CCA. Patient states he had previously told his son he did not want CPR or intubation but has changed his mind now and would want everything done for him and intubation. Patient therefore elects to be full code. Total [id number] time 17 minutes. * * Total time spent on reviewing and evaluating patient, reviewing chart and labs, talking to other physicians as well as discussion of plan with patient and nursing as well as ancillary staff and documentation in the EMR: 75 minutes. Charges/Coding Visit Charges Inpatient E&M: 10419 Init Hosp L3 Procedures Hospitalists Procedures: 51845 Advncd Care Plan 30 Min
--- NOTE | 2022-05-14 16:31 | NURSING ---
DR ISAMAR ROSENBERG
--- NOTE | 2022-05-14 16:37 | NURSING ---
PCU KORAM FEVER, CHANGE IN MENTAL STATUS, TRANSIENT HYPOTENSION
[2022-05-14 16:55] LABS: Bedside Glucose 98 mg/dL (74-106)
[2022-05-14 17:05] LABS: Base Excess 4 mmol/L (-2 to +2); Bicarbonate 28.2 mmol/L (22-26); Blood Gas Specimen Type ART; O2 Delivery Device Cannula; PO2 102 mmHG (75-100); SITE R Radial; SO2 98 % (95-99); Total Carbon Dioxide 29 mmol/L; pCO2 40.2 mmHg (35-45); pH 7.45 (7.35-7.45)
[2022-05-14] MEDS: 0.9% Normal Saline 1,000 ML 120 ML IV (18:38)
--- NOTE | 2022-05-14 20:43 | PCM.RX.CS ---
Consult Pharmacy has been consulted to manage selected antiobiotic: Vancomycin Type of Consult: New start Suspected Infection: Sepsis, Skin/Soft tissue Labs: Sodium 136 mmol/L (136-145) 05/14/22 13:20 Potassium 3.6 mmol/L (3.5-5.1) 05/14/22 13:20 Chloride 98 mmol/L (98-107) 05/14/22 13:20 Carbon Dioxide 29.0 mmol/L (21.0-32.0) 05/14/22 13:20 Anion Gap 9 (5-15) 05/14/22 13:20 BUN 41 mg/dL (7-18) H 05/14/22 13:20 Creatinine 1.80 mg/dL (0.70-1.30) H 05/14/22 13:20 Est GFR (MDRD) Af Amer 48 mL/min (>60) L 05/14/22 13:20 Est GFR (MDRD) Non-Af 40 mL/min (>60) L 05/14/22 13:20 BUN/Creatinine Ratio 22.8 RATIO (10-20) H 05/14/22 13:20 Glucose 106 mg/dL (74-106) 05/14/22 13:20 Microbiology: Microbiology 05/14/22 15:30 Nasal Secretion SARS-CoV-2 & FLU Antigen (Rapid) - Final Goal Trough: 15-20 mcg/mL Pharmacy Plan for Drug Dosing: NEW START IV VANCOMYCIN Consulting Physician: Dr. Pearce Indication: Sepsis/LLE Cellulitis Goal Trough: 15-20 SrCr: 1.8 (05/14/22) CrCl: 57.87 (using an adjusted body weight of 104kg) Comments: pt received a 2000mg (25mg/kg) loading dose on 05/14/22 at 2002 Vancomycin Dose: based on pts weight and renal function, recommend an initial dose of 1000mg q12h starting 05/15/22 at 0800. trough prior to the 4th total dose Pending Level: 05/16/22 at 0730 Pharmacy Service will continue to monitor and adjust dosing as required. Follow-Up Labs: Trough Vancomycin - 05/16/22 at 0730
[2022-05-14] MEDS: Rivaroxaban 20 MG Tablet PO (21:01)
[2022-05-14] MEDS: dilTIAZem CD 120 MG Capsule PO (21:01)
[2022-05-14] MEDS: busPIRone 15 MG TABLET PO (21:01)
[2022-05-14] MEDS: buPROPion 100 MG Tablet 150 MG PO (21:01)
[2022-05-14] MEDS: Atorvastatin Calcium 80 MG Tablet PO (21:01)
[2022-05-14] MEDS: azaTHIOprine 50 MG Tablet PO (21:01)
[2022-05-14] MEDS: 0.9% Saline Lock 10 ML Syringe IV (21:02)
[2022-05-14] MEDS: Pregabalin 50 MG Capsule PO (21:11)
[2022-05-14 21:31] LABS: Troponin-I HS 8 pg/mL (3.0-78.0)
[2022-05-14 23:01] LABS: Troponin-I HS 8 pg/mL (3.0-78.0)
[2022-05-15] VITALS (10 sets, daily range): BP systolic 101–131; BP diastolic 66–86; PULSE 96–112; RESP 18–19; TEMP 36.7–37.1; O2SAT 95–97
[2022-05-15] MEDS: 0.9% Normal Saline 1,000 ML 120 ML IV (03:28)
[2022-05-15 03:37] LABS: Absolute Lymphocyte Count 0.61 X10^3/uL (0.83-4.51); Absolute Neutrophil Count 7.9 X10^3/uL (2.0-7.7); Basophil# 0.05 X10^3/uL; Basophil% 0.5 % (0-1); Eosinophil# 0.33 X10^3/uL; Eosinophils% 3.4 % (0-5); Hematocrit 32.1 % (40-54); Hemoglobin 10.3 g/dL (13.0-16.5); Lymphocyte # 0.61 X10^3/ul (0.83-4.51); Lymphocyte % 6.3 % (19-41); Mean Corp Hgb Conc 32.1 g/dL (32-36); Mean Corpuscular Hgb 30.5 pg (27.0-32.0); Monocyte# 0.75 X10^3/uL; Monocyte% 7.7 % (0-10); NRBC Flagged by Analyzer 0 % (0-5); Neutrophil # 7.93 X10^3/uL (2.7-7.7); Neutrophil % 81.6 % (47-70); Platelet Count 336 K/mm3 (150-450); RBC Distribution Width CV 14.1 % (11.6-14.6); RBC Distribution Width SD 48.7 fl (35.1-43.9); Red Blood Count 3.38 M/mm3 (4.6-6.2); White Blood Count 9.7 K/mm3 (4.4-11.0)
[2022-05-15 03:53] LABS: Troponin-I HS 8 pg/mL (3.0-78.0)
[2022-05-15 03:59] LABS: Anion Gap 9 (5-15); BUN 41 mg/dL (7-18); BUN/Creat Ratio 28.7 RATIO (10-20); Calcium,Total 8.9 mg/dL (8.5-10.1); Chloride 104 mmol/L (98-107); Creatinine, Serum 1.43 mg/dL (0.70-1.30); EST Glomerular Filtration Rate 52 mL/min (>60); Est Glom Filt Rate - Afr Amer 63 mL/min (>60); Estimated Creatinine Clearance 54.27 ml/min; Glucose 101 mg/dL (74-106); Potassium 3.6 mmol/L (3.5-5.1); Sodium Level 139 mmol/L (136-145)
[2022-05-15] MEDS: buPROPion 100 MG Tablet 150 MG PO ×3 (05:41→21:13)
[2022-05-15] MEDS: Vancomycin IV 1,000 MG/200 ML BAG 200 MG IV ×2 (07:49→20:04)
[2022-05-15] MEDS: sulfaSALAzine 500 MG Tablet 1000 MG PO (07:50)
[2022-05-15] MEDS: 0.9% Saline Lock 10 ML Syringe IV ×3 (09:07→21:13)
[2022-05-15] MEDS: azaTHIOprine 50 MG Tablet PO ×2 (09:08→21:14)
[2022-05-15] MEDS: Citalopram 20 MG Tablet PO (09:08)
[2022-05-15] MEDS: busPIRone 15 MG TABLET PO ×2 (09:08→21:13)
[2022-05-15] MEDS: Pantoprazole Sodium 20 MG Tablet PO (09:08)
[2022-05-15] MEDS: Fenofibrate 48 MG Tablet PO (09:09)
[2022-05-15] MEDS: Cholecalciferol (VIT D3) 25 MCG TABLET (1,000 UNITS) 50 MCG PO (09:09)
[2022-05-15] MEDS: Pregabalin 50 MG Capsule PO ×2 (09:18→21:13)
[2022-05-15] MEDS: Metoprolol(XL)Succ 200 MG Tablet PO (09:48)
[2022-05-15] MEDS: Ferrous Sulfate 325 MG Tablet PO ×2 (11:05→17:30)
[2022-05-15] MEDS: Multivitamins,Ther W-Minerals Tablet 1 TABLET PO (11:07)
[2022-05-15] MEDS: Acetaminophen 325 MG Tablet 650 MG PO ×2 (11:12→21:11)
--- NOTE | 2022-05-15 11:49 | CASEMGMT ---
Patient is from [facility]. SW went to patient's room to confirm his plan is to return. Patient was sleeping. Ashley TRINIDAD
--- NOTE | 2022-05-15 12:52 | PN_ITS ---
Subjective Subjective Patient seen and examined. He does feel much better today. He was on 2 L of oxygen by nasal cannula. He is still coughing. He denied any fever, chills, palpitations, dizziness, nausea vomiting or any other symptoms. Review of systems otherwise negative. Objective Data Objective Data Vital Signs: Vital Signs Temp Pulse Resp BP Pulse Ox O2 Del Method O2 Flow Rate 98.8 F 99 18 107/81 H 97 Nasal Cannula 2 05/15/22 09:00 05/15/22 09:48 05/15/22 09:00 05/15/22 09:48 05/15/22 09:00 05/15/22 09:00 05/15/22 09:00 FiO2 30 05/14/22 19:30 Oxygen Flow Rate (L/min) 2 Oxygen Delivery Method Nasal Cannula Weight: 317 lb 7.45 oz Body Mass Index (BMI) 43.0 Intake & Output: Intake and Output for Last 24 Hours 05/13/22 05/14/22 05/15/22 23:59 23:59 23:59 Intake Total 2590 / 2590 2250 / 2250 Output Total 625 / 625 825 / 825 Balance 1964 / 1964 1425 / 1425 Lab / Micro Data Result Diagrams: 05/15/22 03:30 05/15/22 03:30 Labs: Laboratory Results - last 24 hr 05/14/22 13:20: WBC 11.9 H, RBC 3.48 L, Hgb 10.7 L, Hct 32.3 L, MCV 92.8, MCH 30.7, MCHC 33.1, RDW Std Deviation 47.3 H, RDW Coeff of Trev 13.9, Plt Count 368, MPV 8.9, Immature Gran % (Auto) 0.600, Neut % (Auto) 80.5 H, Lymph % (Auto) 7.1 L, [place] % (Auto) 9.4, Eos % (Auto) 1.8, Baso % (Auto) 0.6, Absolute Neuts (auto) 9.6 H, Absolute Lymphs (auto) 0.85, Nucleated RBC % 0 05/14/22 13:20: Sodium 136, Potassium 3.6, Chloride 98, Carbon Dioxide 29.0, Anion Gap 9, BUN 41 H, Creatinine 1.80 H, Estim Creat Clear Calc 43.11, Est GFR (MDRD) Af Amer 48 L, Est GFR (MDRD) Non-Af 40 L, BUN/Creatinine Ratio 22.8 H, Glucose 106, Calcium 9.5, Total Bilirubin 0.70, AST 43 H, ALT 20, Alkaline Phosphatase 57, Total Protein 8.0, Albumin 2.0 L, Globulin 6.0 H, Albumin/Globulin Ratio 0.3 L 05/14/22 13:20: Ammonia 23.0 05/14/22 13:20: Lactic Acid 1.3 05/14/22 15:00: Urine Color Delfina, Urine Clarity Sl. Cloudy, Urine pH 5.0, Ur Specific [place] 1.025, Urine Protein 30 H, Urine Glucose (UA) Normal, Urine Ketones 5 H, Urine Occult Blood 10 H, Urine Nitrite Negative, Urine Bilirubin 6 H, Urine Urobilinogen 4 H, Ur Leukocyte Esterase 25 H, Urine RBC 0-5 SEEN, Urine WBC 0-5 SEEN, Ur Squamous Epith Cells 0 SEEN, Urine Bacteria 0 SEEN, Hyaline Casts 25-50 SEEN, Urine Mucus 0 SEEN 05/14/22 16:35: POC Glucose 98 05/14/22 21:04: Troponin I High Sens 8 05/14/22 22:34: Troponin I High Sens 8 05/15/22 03:30: WBC 9.7, RBC 3.38 L, Hgb 10.3 L, Hct 32.1 L, MCV 95.0 H, MCH 30.5, MCHC 32.1, RDW Std Deviation 48.7 H, RDW Coeff of Trev 14.1, Plt Count 336, MPV 9.0, Immature Gran % (Auto) 0.500, Neut % (Auto) 81.6 H, Lymph % (Auto) 6.3 L, [place] % (Auto) 7.7, Eos % (Auto) 3.4, Baso % (Auto) 0.5, Absolute Neuts (auto) 7.9 H, Absolute Lymphs (auto) 0.61 L, Nucleated RBC % 0 05/15/22 03:30: Sodium 139, Potassium 3.6, Chloride 104, Carbon Dioxide 26.0, Anion Gap 9, BUN 41 H, Creatinine 1.43 H, Estim Creat Clear Calc 54.27, Est GFR (MDRD) Af Amer 63, Est GFR (MDRD) Non-Af 52 L, BUN/Creatinine Ratio 28.7 H, Glucose 101, Calcium 8.9 05/15/22 03:30: Troponin I High Sens 8 Micro: Microbiology 05/14/22 13:00 Urine Catheter - Smith Urine Culture - Preliminary Culture exhibits no growth. 05/14/22 15:30 Nasal Secretion SARS-CoV-2 & FLU Antigen (Rapid) - Final ABG Data ABG results: ABG 05/14/22 05/14/22 13:22 16:59 Specimen Type ART ART Sample Site R Radial R Radial pH 7.45 7.45 Bicarbonate Actual 29.0 H 28.2 H Total CO2 30 29 Base Excess 5 H 4 H O2 Saturation 98 98 ABG pCO2 41.5 40.2 ABG pO2 96 102 H William Test Positive O2 Delivery Device Cannula Cannula Liter Flow 4.0 6.0 Radiography Diagnostic Testing: Radiology Impression Brain CT 05/14/22 12:58 IMPRESSION: Chronic involutional changes of the brain. No acute hemorrhage Electronically Signed: Asael Joyce MD at 14:21 EST , Chest X-Ray 05/14/22 14:05 IMPRESSION: Chronic interstitial changes, no superimposed acute pulmonary process Electronically Signed: sAael Joyce MD at 14:22 EST , Physical Exam Const alert Constitutional Narrative: Patient is much more responsive today. HEENT normocephalic, head/scalp atraumatic, hearing grossly normal bilaterally and moist oral mucous membranes Eyes PERRL, EOMs intact bilaterally and conjunctivae normal Neck no lymphadenopathy and supple Resp Resp Narrative: Mildly diminished breath sounds bibasally. No wheezes or crackles. 2 L of oxygen at time of review. Cardio regular rhythm, S1 normal heart sound and S2 normal heart sound Cardio Narrative: tachycardic GI normal to inspection, nondistended, normoactive bowel sounds, soft to palpation, non-tender and non-distended GI Narrative: obese abdomen Extremity Extremity Narrative: LLE mancini erythema and warmth has improved. Less tender to touch today. Has a thickened callus on the right inner heel of the LLE, its erythema and redness has improved. Skin Skin Narrative: as under extremity Neuro Sensorium / Orientation: awake Motor Exam: strength 5/5 throughout Psych cooperative Appearance: appropriate Assessment & Plan Assessment/Plan (1) Acute alteration in mental status: PLAN: Plan #Acute metabolic encephalopathy * resolved. Patient is alert and communicative today. On 2L of oxygen * titrate oxygen to maintain sats >90% * PT/OT on board. * #Cellulitis of the LLE * SIRS criteria was present and he was also hypotensive, but these have all resolved * on IV vanc and zosyn * blood cultures pending * Pt/OT on board. * * * #Hypoxia: Likely due to narcolepsy and sleep apnea. Now on 2L of oxygen. Titrate oxygen to maintain sats >90% #Hypotension: resolved. #A-fib: * is tachycardic today; will resume cardizem * On Xarelto. * #Chronic heart failure reduced ejection fraction: * On torsemide and spironolactone as well as metoprolol and lisinopril. * will resume as hypotension has resolved. * has known EF of 40% #JF: Cr was 1.8 on admission, with a baseline Cr of 1.2 Cr trended down to 1.43 today. Will monitor. #History of rheumatoid arthritis: On sulfasalazine and azathioprine #Hyperlipidemia: On statin GERD: On PPI #ALEJANDRA: Currently on BiPAP as above. #Super morbid obesity: BMI is 44.7. Complicates acute care, expected recovery and prognosis. CODE STATUS: Full code * Charges/Coding Visit Charges Inpatient E&M: 89968 Subs Hosp L2
[2022-05-15] MEDS: guaiFENesin 1,200 MG Tablet 1200 MG PO ×2 (14:28→21:13)
--- NOTE | 2022-05-15 14:38 | WOUNDNOTE ---
skin photo: bilateral lower legs
--- NOTE | 2022-05-15 14:38 | WOUNDNOTE ---
skin photo: left lower leg
[2022-05-15] MEDS: Atorvastatin Calcium 80 MG Tablet PO (21:13)
[2022-05-15] MEDS: dilTIAZem CD 120 MG Capsule PO (21:13)
[2022-05-15] MEDS: Rivaroxaban 20 MG Tablet PO (21:13)
[2022-05-16] VITALS (10 sets, daily range): BP systolic 112–122; BP diastolic 72–80; PULSE 76–136; RESP 16–19; TEMP 36.3–36.9; O2SAT 92–98
[2022-05-16] MEDS: buPROPion 100 MG Tablet 150 MG PO ×3 (05:28→21:54)
[2022-05-16 08:06] LABS: Absolute Lymphocyte Count 0.82 X10^3/uL (0.83-4.51); Absolute Neutrophil Count 6.8 X10^3/uL (2.0-7.7); Basophil# 0.04 X10^3/uL; Basophil% 0.5 % (0-1); Eosinophils% 3.4 % (0-5); Hemoglobin 10.2 g/dL (13.0-16.5); Lymphocyte # 0.82 X10^3/ul (0.83-4.51); Lymphocyte % 9.3 % (19-41); Mean Corp Hgb Conc 32.9 g/dL (32-36); Mean Corpuscular Hgb 30.6 pg (27.0-32.0); Mean Corpuscular Volume 93.1 fL (80-94); Mean Platelet Vol. 9.2 fl (6.2-12.0); Monocyte# 0.79 X10^3/uL; NRBC Flagged by Analyzer 0 % (0-5); Neutrophil # 6.82 X10^3/uL (2.7-7.7); Neutrophil % 77.2 % (47-70); Platelet Count 342 K/mm3 (150-450); RBC Distribution Width CV 14.2 % (11.6-14.6); Red Blood Count 3.33 M/mm3 (4.6-6.2); White Blood Count 8.8 K/mm3 (4.4-11.0)
[2022-05-16] MEDS: Spironolactone 25 MG Tablet PO (08:24)
[2022-05-16] MEDS: sulfaSALAzine 500 MG Tablet 1000 MG PO (08:24)
[2022-05-16] MEDS: Vancomycin IV 1,000 MG/200 ML BAG 200 MG IV (08:26)
[2022-05-16 08:31] LABS: Anion Gap 4 (5-15); BUN 28 mg/dL (7-18); BUN/Creat Ratio 28.6 RATIO (10-20); Calcium,Total 9.3 mg/dL (8.5-10.1); Chloride 105 mmol/L (98-107); Creatinine, Serum 0.98 mg/dL (0.70-1.30); EST Glomerular Filtration Rate 81 mL/min (>60); Est Glom Filt Rate - Afr Amer 98 mL/min (>60); Estimated Creatinine Clearance 79.18 ml/min; Glucose 102 mg/dL (74-106); Potassium 3.5 mmol/L (3.5-5.1); Sodium Level 138 mmol/L (136-145); Vancomycin, Trough Level 13.6 ug/mL (5.0-15.0)
[2022-05-16] MEDS: Acetaminophen 325 MG Tablet 650 MG PO ×2 (09:08→18:00)
[2022-05-16] MEDS: azaTHIOprine 50 MG Tablet PO ×2 (09:09→21:58)
[2022-05-16] MEDS: Metoprolol(XL)Succ 200 MG Tablet PO (09:09)
[2022-05-16] MEDS: 0.9% Saline Lock 10 ML Syringe IV (09:09)
[2022-05-16] MEDS: Citalopram 20 MG Tablet PO (09:10)
[2022-05-16] MEDS: Cholecalciferol (VIT D3) 25 MCG TABLET (1,000 UNITS) 50 MCG PO (09:10)
[2022-05-16] MEDS: Pantoprazole Sodium 20 MG Tablet PO (09:10)
[2022-05-16] MEDS: busPIRone 15 MG TABLET PO ×2 (09:11→21:55)
[2022-05-16] MEDS: guaiFENesin 1,200 MG Tablet 1200 MG PO ×2 (09:11→21:55)
[2022-05-16] MEDS: Fenofibrate 48 MG Tablet PO (09:11)
[2022-05-16] MEDS: Furosemide 40 MG Tablet PO (09:11)
[2022-05-16] MEDS: Pregabalin 50 MG Capsule PO ×2 (09:16→22:03)
--- NOTE | 2022-05-16 09:31 | PCM.RX.CS ---
Consult Type of Consult: Follow-up Suspected Infection: Skin/Soft tissue Labs: Sodium 138 mmol/L (136-145) 05/16/22 07:30 Potassium 3.5 mmol/L (3.5-5.1) 05/16/22 07:30 Chloride 105 mmol/L (98-107) 05/16/22 07:30 Carbon Dioxide 29.0 mmol/L (21.0-32.0) 05/16/22 07:30 Anion Gap 4 (5-15) L 05/16/22 07:30 BUN 28 mg/dL (7-18) H 05/16/22 07:30 Creatinine 0.98 mg/dL (0.70-1.30) 05/16/22 07:30 Est GFR (MDRD) Af Amer 98 mL/min (>60) 05/16/22 07:30 Est GFR (MDRD) Non-Af 81 mL/min (>60) 05/16/22 07:30 BUN/Creatinine Ratio 28.6 RATIO (10-20) H 05/16/22 07:30 Glucose 102 mg/dL (74-106) 05/16/22 07:30 Vancomycin Trough 13.6 ug/mL (5.0-15.0) 05/16/22 07:30 Microbiology: Microbiology 05/14/22 15:05 Blood Culture (Wb) - Anticubital Right Bacteria Detection (PCR) - Final Coag Negative Staph 05/14/22 15:05 Blood Culture (Wb) - Anticubital Right Blood Culture - Preliminary Coag Negative Staph 05/14/22 13:00 Urine Catheter - Smith Urine Culture - Preliminary Culture exhibits no growth. 05/14/22 15:30 Nasal Secretion SARS-CoV-2 & FLU Antigen (Rapid) - Final Weight used for dosin.4 kg - AdjBW Goal Trough: 15-20 mcg/mL Pharmacy Plan for Drug Dosing: VANCOMYCIN LEVEL RECEIVED Current Vancomycin Dose: 1000mg Q12H Number of Doses Received: 1000mg x2, 2000mg x1 Vancomycin Level: 13.6 Hours Since Last Dose: 11.5 Renal Function: sCr 0.98 (CrCl > 100 ml/min based on AdjBW 106.4kg) Renal Function Trend: improved Vancomycin Plan/Comments: Increase Vancomycin dosing regimen to 1500mg Q12H, to start at next scheduled dose @ 199905/16/22 Pending Level: Vancomycin trough @ 0730 05/18/22 Pharmacy Service will continue to monitor and adjust dosing as required. Labs to be done on [date and time ordered]: Vancomycin trough @ 72905/18/22
--- NOTE | 2022-05-16 09:59 | PN_ITS ---
Subjective Subjective Patient seen and Ament. He felt well and had no complaints. He had an uneventful night. He denies any fever, chills, palpitations, dizziness, nausea or vomiting or any other symptoms. Review of systems otherwise negative. He is a bit tachycardic this morning. Objective Data Objective Data Vital Signs: Vital Signs Temp Pulse Resp BP Pulse Ox O2 Del Method O2 Flow Rate 98.5 F 136 H 19 H 112/74 96 Nasal Cannula 2 05/16/22 04:13 05/16/22 09:09 05/16/22 04:13 05/16/22 09:09 05/16/22 07:40 05/16/22 07:40 05/16/22 07:40 FiO2 30 05/14/22 19:30 Oxygen Flow Rate (L/min) 2 Oxygen Delivery Method Nasal Cannula Weight: 317 lb 7.45 oz Body Mass Index (BMI) 43.0 Intake & Output: Intake and Output for Last 24 Hours 05/14/22 05/15/22 05/16/22 23:59 23:59 23:59 Intake Total 2590 / 2590 4305.25 / 4305.25 147.50 / 147.50 Output Total 625 / 625 2375 / 2375 600 / 600 Balance 1965 / 1965 1930.25 / 1930.25 -452.50 / -452.50 Lab / Micro Data Result Diagrams: 05/16/22 07:30 05/16/22 07:30 Labs: Laboratory Results - last 24 hr 05/16/22 07:30: WBC 8.8, RBC 3.33 L, Hgb 10.2 L, Hct 31.0 L, MCV 93.1, MCH 30.6, MCHC 32.9, RDW Std Deviation 48.0 H, RDW Coeff of Trev 14.2, Plt Count 342, MPV 9.2, Immature Gran % (Auto) 0.600, Neut % (Auto) 77.2 H, Lymph % (Auto) 9.3 L, [place] % (Auto) 9.0, Eos % (Auto) 3.4, Baso % (Auto) 0.5, Absolute Neuts (auto) 6.8, Absolute Lymphs (auto) 0.82 L, Nucleated RBC % 0 05/16/22 07:30: Sodium 138, Potassium 3.5, Chloride 105, Carbon Dioxide 29.0, An ion Gap 4 L, BUN 28 H, Creatinine 0.98, Estim Creat Clear Calc 79.18, Est GFR (MDRD) Af Amer 98, Est GFR (MDRD) Non-Af 81, BUN/Creatinine Ratio 28.6 H, Glucose 102, Calcium 9.3 05/16/22 07:30: Vancomycin Trough 13.6 Micro: Microbiology 05/14/22 15:05 Blood Culture (Wb) - Anticubital Right Bacteria Detection (PCR) - Final Coag Negative Staph 05/14/22 15:05 Blood Culture (Wb) - Anticubital Right Blood Culture - Preli minary Coag Negative Staph 05/14/22 13:00 Urine Catheter - Smith Urine Culture - Preliminary Culture exhibits no growth. 05/14/22 15:30 Nasal Secretion SARS-CoV-2 & FLU Antigen (Rapid) - Final Physical Exam Const alert, oriented x3 and no apparent distress Constitutional Narrative: morbidly obese HEENT normocephalic, head/scalp atraumatic, hearing grossly normal bilaterally and moist oral mucous membranes Eyes PERRL, EOMs intact bilaterally and conjunctivae normal Neck no lymphadenopathy and supple Resp Resp Narrative: Mildly diminished breath sounds bibasally. No wheezes or crackles. 2 L of oxygen at time of review. Cardio regular rhythm, S1 normal heart sound and S2 normal heart sound Cardio Narrative: tachycardic GI normal to inspection, nondistended, normoactive bowel sounds, soft to palpation, non-tender and non-distended GI Narrative: obese abdomen Extremity Extremity Narrative: LLE mancini erythema and warmth have resolved. Skin Skin Narrative: as under extremity Neuro CN's II-XII intact bilaterally, no focal motor deficits and no sensory deficits noted Sensorium / Orientation: awake Motor Exam: strength 5/5 throughout Psych cooperative Appearance: appropriate Assessment & Plan Assessment/Plan (1) Acute alteration in mental status: PLAN: Plan #Acute metabolic encephalopathy * resolved. Patient is alert and communicative today. On 2L of oxygen * titrate oxygen to maintain sats >90% * PT/OT on board. * #Cellulitis of the LLE * SIRS criteria was present and he was also hypotensive, but these have all resolved * on IV vanc and zosyn * blood cultures pending * Pt/OT on board. * * #Bacteremia * blood culture (1 out of 2) growing coagulase negative staph. * PCR of blood also positive for coagulase negative staph * currently on iV vancomycin and zosyn * may be a contaminant * consult ID * * #Hypoxia: Likely due to narcolepsy and sleep apnea. Now on 2L of oxygen. Titrate oxygen to maintain sats >90% #Hypotension: resolved. #A-fib: * still tachycardic this morning. Hasnt received his cardizem * on cardizem and metoprolol * On Xarelto. * #Chronic heart failure reduced ejection fraction: * On torsemide and spironolactone as well as metoprolol and lisinopril. * has known EF of 40% #JF: resolved. Cr is down to 0.98 today. #History of rheumatoid arthritis: On sulfasalazine and azathioprine #Hyperlipidemia: On statin GERD: On PPI #ALEJANDRA: Currently on BiPAP as above. #Super morbid obesity: BMI is 44.7. Complicates acute care, expected recovery and prognosis. CODE STATUS: Full code * Charges/Coding Visit Charges Inpatient E&M: 29293 Subs Hosp L2
[2022-05-16] MEDS: Multivitamins,Ther W-Minerals Tablet 1 TABLET PO (12:17)
[2022-05-16] MEDS: Ferrous Sulfate 325 MG Tablet PO ×2 (12:17→18:00)
[2022-05-16] MEDS: Rivaroxaban 20 MG Tablet PO (21:53)
[2022-05-16] MEDS: dilTIAZem CD 120 MG Capsule PO (21:55)
[2022-05-16] MEDS: Atorvastatin Calcium 80 MG Tablet PO (21:56)
[2022-05-17] VITALS (8 sets, daily range): BP systolic 104–143; BP diastolic 36–108; PULSE 77–100; RESP 18; TEMP 36.7–37; O2SAT 92–96
[2022-05-17] MEDS: Acetaminophen 325 MG Tablet 650 MG PO ×2 (04:20→12:17)
[2022-05-17] MEDS: buPROPion 100 MG Tablet 150 MG PO ×2 (05:00→13:51)
[2022-05-17 05:55] LABS: Absolute Lymphocyte Count 0.63 X10^3/uL (0.83-4.51); Absolute Neutrophil Count 6.8 X10^3/uL (2.0-7.7); Basophil# 0.06 X10^3/uL; Basophil% 0.7 % (0-1); Eosinophil# 0.33 X10^3/uL; Eosinophils% 3.9 % (0-5); Hematocrit 32.3 % (40-54); Hemoglobin 10.6 g/dL (13.0-16.5); Lymphocyte # 0.63 X10^3/ul (0.83-4.51); Lymphocyte % 7.4 % (19-41); Mean Corp Hgb Conc 32.8 g/dL (32-36); Mean Corpuscular Hgb 31.2 pg (27.0-32.0); Mean Platelet Vol. 9.2 fl (6.2-12.0); Monocyte# 0.73 X10^3/uL; Monocyte% 8.5 % (0-10); NRBC Flagged by Analyzer 0 % (0-5); Neutrophil # 6.77 X10^3/uL (2.7-7.7); Neutrophil % 78.9 % (47-70); Platelet Count 347 K/mm3 (150-450); RBC Distribution Width SD 47.7 fl (35.1-43.9); White Blood Count 8.6 K/mm3 (4.4-11.0)
[2022-05-17 06:29] LABS: Anion Gap 6 (5-15); BUN 22 mg/dL (7-18); BUN/Creat Ratio 25.1 RATIO (10-20); Calcium,Total 9.2 mg/dL (8.5-10.1); Chloride 105 mmol/L (98-107); Creatinine, Serum 0.88 mg/dL (0.70-1.30); EST Glomerular Filtration Rate 92 mL/min (>60); Est Glom Filt Rate - Afr Amer 111 mL/min (>60); Estimated Creatinine Clearance 88.18 ml/min; Glucose 108 mg/dL (74-106); Sodium Level 139 mmol/L (136-145)
--- NOTE | 2022-05-17 09:00 | CASEMGMT ---
YASMIN spoke with patient and he confirmed his plan is to return to [facility] at d/c. Ashley TRINIDAD
[2022-05-17] MEDS: Spironolactone 25 MG Tablet PO (09:10)
[2022-05-17] MEDS: azaTHIOprine 50 MG Tablet PO (09:10)
[2022-05-17] MEDS: Cholecalciferol (VIT D3) 25 MCG TABLET (1,000 UNITS) 50 MCG PO (09:15)
[2022-05-17] MEDS: Metoprolol(XL)Succ 200 MG Tablet PO (09:15)
[2022-05-17] MEDS: Lisinopril 5 MG Tablet PO (09:15)
[2022-05-17] MEDS: Pantoprazole Sodium 20 MG Tablet PO (09:16)
[2022-05-17] MEDS: guaiFENesin 1,200 MG Tablet 1200 MG PO (09:16)
[2022-05-17] MEDS: Multivitamins,Ther W-Minerals Tablet 1 TABLET PO (09:16)
[2022-05-17] MEDS: Ferrous Sulfate 325 MG Tablet PO ×2 (09:16→16:58)
[2022-05-17] MEDS: Citalopram 20 MG Tablet PO (09:16)
[2022-05-17] MEDS: Fenofibrate 48 MG Tablet PO (09:16)
[2022-05-17] MEDS: sulfaSALAzine 500 MG Tablet 1000 MG PO (09:16)
[2022-05-17] MEDS: Furosemide 40 MG Tablet PO (09:16)
[2022-05-17] MEDS: busPIRone 15 MG TABLET PO (09:17)
[2022-05-17] MEDS: Pregabalin 50 MG Capsule PO (10:31)
--- NOTE | 2022-05-17 10:59 | PN_ITS ---
Subjective Subjective Patient seen and examined. He complains of chronic pain in his shoulders and arms. He has no other, symptoms otherwise he has remained hemodynamically stable. Objective Data Objective Data Vital Signs: Vital Signs Temp Pulse Resp BP Pulse Ox O2 Del Method O2 Flow Rate 98.6 F 100 18 143/108 H 96 Nasal Cannula 2 05/17/22 07:33 05/17/22 09:15 05/17/22 07:33 05/17/22 09:15 05/17/22 07:33 05/17/22 07:34 05/17/22 07:34 FiO2 30 05/14/22 19:30 Oxygen Flow Rate (L/min) 2 Oxygen Delivery Method Nasal Cannula Weight: 317 lb 7.45 oz Body Mass Index (BMI) 43.0 Intake & Output: Intake and Output for Last 24 Hours 05/15/22 05/16/22 05/17/22 23:59 23:59 23:59 Intake Total 4305.25 / 4305.25 2177.50 / 2177.50 757.75 / 757.75 Output Total 2375 / 2375 1999 / 1999 500 / 500 Balance 1930.25 / 1930.25 177.50 / 177.50 257.75 / 257.75 Lab / Micro Data Result Diagrams: 05/17/22 05:34 05/17/22 05:34 Labs: Laboratory Results - last 24 hr 05/17/22 05:34: WBC 8.6, RBC 3.40 L, Hgb 10.6 L, Hct 32.3 L, MCV 95.0 H, MCH 31.2, MCHC 32.8, RDW Std Deviation 47.7 H, RDW Coeff of Trev 14.0, Plt Count 347, MPV 9.2, Immature Gran % (Auto) 0.600, Neut % (Auto) 78.9 H, Lymph % (Auto) 7.4 L, [place] % (Auto) 8.5, Eos % (Auto) 3.9, Baso % (Auto) 0.7, Absolute Neuts (auto) 6.8, Absolute Lymphs (auto) 0.63 L, Nucleated RBC % 0 05/17/22 05:34: Sodium 139, Potassium 4.0, Chloride 105, Carbon Dioxide 28.0, Anion Gap 6, BUN 22 H, Creatinine 0.88, Estim Creat Clear Calc 88.18, Est GFR (MDRD) Af Amer 111, Est GFR (MDRD) Non-Af 92, BUN/Creatinine Ratio 25.1 H, Glucose 108 H, Calcium 9.2 Micro: Microbiology 05/14/22 13:00 Urine Catheter - Smith Urine Culture - Final Culture exhibits no growth. 05/14/22 15:05 Blood Culture (Wb) - Anticubital Right Bacteria Detection (PCR) - Final Coag Negative Staph 05/14/22 15:05 Blood Culture (Wb) - Anticubital Right Blood Culture - Preliminary Coag Negative Staph 05/14/22 15:30 Nasal Secretion SARS-CoV-2 & FLU Antigen (Rapid) - Final Physical Exam Const alert, oriented x3, no apparent distress and well nourished Constitutional Narrative: morbidly obese HEENT normocephalic, head/scalp atraumatic, hearing grossly normal bilaterally and moist oral mucous membranes Eyes PERRL, EOMs intact bilaterally and conjunctivae normal Neck no lymphadenopathy and supple Lymph Lymphatic: no lymphadenopathy noted Resp Resp Narrative: Mildly diminished breath sounds bibasally. No wheezes or crackles. 2 L of oxygen at time of review. Cardio regular rate, regular rhythm, S1 normal heart sound and S2 normal heart sound GI normal to inspection, nondistended, normoactive bowel sounds, soft to palpation, non-tender and non-distended GI Narrative: obese abdomen Extremity Extremity Narrative: LLE mnacini erythema and warmth have resolved. Skin Skin Narrative: as under extremity Neuro CN's II-XII intact bilaterally, no focal motor deficits and no sensory deficits noted Sensorium / Orientation: awake Motor Exam: strength 5/5 throughout Psych cooperative Appearance: appropriate Assessment & Plan Assessment/Plan (1) Acute alteration in mental status: PLAN: Plan #Acute metabolic encephalopathy * resolved.. On 2L of oxygen * titrate oxygen to maintain sats >90% * PT/OT on board. * #Cellulitis of the LLE * SIRS criteria was present and he was also hypotensive, but these have all resolved * on IV vanc and zosyn * blood cultures growing coagulase negative Staph (1/2 samples) * Pt/OT on board. * * #Bacteremia * blood culture (1 out of 2) growing coagulase negative staph. * PCR of blood also positive for coagulase negative staph * currently on IV vancomycin and zosyn * may be a contaminant * ID consulted. await rec's * * #Hypoxia: Likely due to narcolepsy and sleep apnea. Now on 2L of oxygen. Titrate oxygen to maintain sats >90% #Hypotension: resolved. #A-fib: * HR control improving * on cardizem and metoprolol * On Xarelto. * #Chronic heart failure reduced ejection fraction: * On torsemide and spironolactone as well as metoprolol and lisinopril. * has known EF of 40% #JF: resolved. #History of rheumatoid arthritis: On sulfasalazine and azathioprine #Hyperlipidemia: On statin GERD: On PPI #ALEJANDRA: Currently on BiPAP as above. #Super morbid obesity: BMI is 44.7. Complicates acute care, expected recovery and prognosis. CODE STATUS: Full code * Disposition: anticipate dc back to SNF within the next 24-48 hours Charges/Coding Visit Charges Inpatient E&M: 58602 Subs Hosp L2
--- NOTE | 2022-05-17 11:52 | CASEMGMT ---
Social Work LW and Healthcare POA both scanned into summary tab of echart. Pt has son Jose Pederson listed as healthcare POA. MOE Pérez
--- NOTE | 2022-05-17 14:40 | PCM.CONS.GEN ---
Assessment & Plan Assessment/Plan (1) Acute alteration in mental status: PLAN: Tmax 100.2, cxs neg except for single bcx with CoNS (consistent with contaminant). JF improved. Wbc mildly elevated on admit, now normalized. Will stop abx and continue to monitor. Will follow, thank you HPI Consult Data Date of Consult: 05/17/22 HPI Narrative Reason for Consultation: (+) bcx HPI Narrative: DEMIAN NELSON, is a 66 M with h/o rheumatoid arthritis, obesity, CKD, ECF resident, presented with several weeks progressive BLE pain and weakness. [place] dizzy, could not get out of chair, so sent to ED on 05/14. Had low grade temp 100.2, given tylenol, now on vanc/cefepime. Denies fever, chills, dysuria, abd pain. Has some chronic intermittent headache, diarrhea, cough with white sputum. Full ROS performed and neg except as noted above. [facility] Medical History Anxiety Back pain Blackout Cardiology follow-up encounter CHF (congestive heart failure) Coronary artery disease involving coronary bypass graft Depression Dietary restriction Difficulty chewing Former smoker Graves disease High cholesterol History of atrial fibrillation History of echocardiogram History of edema History of heart attack History of kidney stones History of pain when walking History of renal disease History of stomach ulcers History of stress test Hypertension Ischemic cardiomyopathy Neuropathy Nocturia Rheumatoid arthritis Shortness of breath on exertion Walker as ambulation aid Home Medications atorvastatin 80 mg tablet 80 mg PO QHS CHOLESTEROL 07/05/19 [History Last Taken 05/13/22] bupropion HCl 100 mg tablet 150 mg PO TID DEPRESSION 07/05/19 [History Last Taken 05/14/22] buspirone 15 mg tablet 15 mg PO BID ANXIETY 07/05/19 [History Last Taken 05/14/22] metoprolol succinate 200 mg tablet,extended release 24 hr 200 mg PO DAILY BLOOD PRESSURE 07/05/19 [History Last Taken 05/14/22] multivitamin with minerals 1 ea PO DAILY HEALTH MAINTENANCE 07/05/19 [History Last Taken 05/14/22] nitroglycerin 0.4 mg sublingual tablet 0.4 mg sublingual Q5M PRN CHEST PAIN 07/05/19 [History Last Taken Unknown] azathioprine 50 mg tablet 50 mg PO BID RHEUMATOID ARTHRITIS 11/29/21 [History Last Taken 05/14/22] fenofibrate 54 mg tablet 54 mg PO DAILY CHOLESTEROL 11/29/21 [History Last Taken 05/14/22] lisinopril 5 mg tablet 5 mg PO DAILY BLOOD PRESSURE 11/29/21 [History Last Taken 05/14/22] pregabalin 50 mg capsule (Lyrica) 50 mg PO BID PAIN 11/29/21 [History Last Taken 05/14/22] rivaroxaban 20 mg tablet (Xarelto) 20 mg PO QPM BLOOD THINNER 11/29/21 [History Last Taken 05/13/22] sulfasalazine 500 mg tablet 1,000 mg PO DAILY RHEUMATOID ARTHRITIS 11/29/21 [History Last Taken 05/13/22 12:00] torsemide 20 mg tablet 20 mg PO DAILY CONGESTIVE HEART FAILURE 11/29/21 [History Last Taken 05/14/22] cholecalciferol (vitamin D3) 50 mcg (2,000 unit) tablet 50 mcg PO DAILY SUPPLEMENT 04/22/22 [History Last Taken 05/14/22] simethicone 125 mg chewable tablet 125 mg PO BID GAS RELIEF 04/22/22 [History Last Taken 05/14/22] spironolactone 25 mg tablet 25 mg PO DAILYCM CONGESTIVE HEART FAILURE 04/22/22 [History Last Taken 05/13/22 12:00] bisacodyl 10 mg rectal suppository 10 mg [place] DAILY PRN CONSTIPATION 05/14/22 [History Last Taken Unknown] citalopram 20 mg tablet 20 mg PO DAILY DEPRESSION 05/14/22 [History Last Taken 05/14/22] diltiazem HCl 120 mg capsule,extended release 24 hr (Cardizem CD) 120 mg PO QHS BLOOD PRESSURE 05/14/22 [History Last Taken 05/13/22] ferrous sulfate 325 mg (65 mg iron) tablet 325 mg PO BIDCM SUPPLEMENT 05/14/22 [History Last Taken 05/14/22 08:00] omeprazole 20 mg capsule,delayed release 20 mg PO DAILY ACID REFLUX 05/14/22 [History Last Taken 05/14/22] tramadol 50 mg tablet 50 mg PO Q8H PRN PAIN 05/14/22 [History Last Taken Unknown] Allergy/AdvReac Type Severity Reaction Status Date / Time Penicillins [PCN] Allergy Swelling Verified 05/14/22 12:51 Family History Mother Cancer Father Heart disease Thyroid disorder Hypertension Sister Kidney disease Cancer Diabetes Brother Diabetes Surgical History H/O hernia repair History of cardiac catheterization History of esophagogastroduodenoscopy (EGD) History of incision and drainage Hx of colectomy Hx of colonoscopy Hx of heart bypass surgery S/P cervical spinal fusion S/P right knee arthroscopy Social History Smoking Status: Former smoker Physical Exam Const alert and no apparent distress General Appearance: cooperative HEENT normocephalic and head/scalp atraumatic Eyes PERRL and EOMs intact bilaterally Neck supple and No nodes Resp normal air movement and clear to auscultation bilaterally Cardio regular rate and regular rhythm GI soft to palpation, non-tender and non-distended Extremity General Extremity: edema Skin Skin Narrative: no erythema Neuro CN's II-XII intact bilaterally Lab / Micro Data Attestation: I reviewed the patient's lab results. Result Diagrams: 05/17/22 05:34 05/17/22 05:34 Labs: Laboratory Results - last 24 hr 05/17/22 05:34: WBC 8.6, RBC 3.40 L, Hgb 10.6 L, Hct 32.3 L, MCV 95.0 H, MCH 31.2, MCHC 32.8, RDW Std Deviation 47.7 H, RDW Coeff of Trev 14.0, Plt Count 347, MPV 9.2, Immature Gran % (Auto) 0.600, Neut % (Auto) 78.9 H, Lymph % (Auto) 7.4 L, [place] % (Auto) 8.5, Eos % (Auto) 3.9, Baso % (Auto) 0.7, Absolute Neuts (auto) 6.8, Absolute Lymphs (auto) 0.63 L, Nucleated RBC % 0 05/17/22 05:34: Sodium 139, Potassium 4.0, Chloride 105, Carbon Dioxide 28.0, Anion Gap 6, BUN 22 H, Creatinine 0.88, Estim Creat Clear Calc 88.18, Est GFR (MDRD) Af Amer 111, Est GFR (MDRD) Non-Af 92, BUN/Creatinine Ratio 25.1 H, Glucose 108 H, Calcium 9.2 Micro: Microbiology 05/14/22 13:00 Urine Catheter - Smith Urine Culture - Final Culture exhibits no growth.
--- NOTE | 2022-05-17 15:33 | TREXTCAR_ITS ---
Diet Diet Order/Speech Therapy: 05/14/22 23:20 Diet: Cardiac - Heart Healthy Dietary Modifications:: Sodium Restricted Is pt able to select menu?: No Routine Orders/Code Status Enema Type: Fleetz Enema Frequency: Daily PRN Suppository Type: Dulcolax 10mg Suppository Frequency: Daily PRN O2 Frequency: PRN Wound(s) Buttocks: Wound Type: Pressure Injury Dressing Change: Mepilex right buttock R thigh: Wound Type: multiple small abrasions Therapies Weight Bearing: Weight bearing as tolerated Physical Therapy: Eval and Treat Occupational Therapy: Eval and Treat Problem/Diagnosis (1) Acute alteration in mental status: Status: Acute Code(s): R41.82 - Altered mental status, unspecified Plan #Acute metabolic encephalopathy * resolved.. On 2L of oxygen * titrate oxygen to maintain sats >90% * PT/OT on board. * #Cellulitis of the LLE * SIRS criteria was present and he was also hypotensive, but these have all resolved * on IV vanc and zosyn * blood cultures growing coagulase negative Staph (1/2 samples) * Pt/OT on board. * * #Bacteremia * blood culture (1 out of 2) growing coagulase negative staph. * PCR of blood also positive for coagulase negative staph * currently on IV vancomycin and zosyn * may be a contaminant * ID consulted. await rec's * * #Hypoxia: Likely due to narcolepsy and sleep apnea. Now on 2L of oxygen. Titrate oxygen to maintain sats >90% #Hypotension: resolved. #A-fib: * HR control improving * on cardizem and metoprolol * On Xarelto. * #Chronic heart failure reduced ejection fraction: * On torsemide and spironolactone as well as metoprolol and lisinopril. * has known EF of 40% #JF: resolved. #History of rheumatoid arthritis: On sulfasalazine and azathioprine #Hyperlipidemia: On statin GERD: On PPI #ALEJANDRA: Currently on BiPAP as above. #Super morbid obesity: BMI is 44.7. Complicates acute care, expected recovery and prognosis. CODE STATUS: Full code * Disposition: anticipate dc back to SNF within the next 24-48 hours Allergies/Procedures Done in Hospital Allergies Penicillins [PCN] Allergy (Verified 05/14/22 12:51) Swelling Type of Care/Length of Stay Estimated LOS: Convalescent Care Less Than 30 days Type of Care Needed: Skilled Rehab Potential: Fair Prognosis: Fair Additional Orders/Day of Discharge Day of Discharge: 05/17/22 Dietary and Speech Recommendations Dietitian Recommendations/Changes: continue cardiac diet Discharge Plan Admission Admit Date/Time: 05/14/22 17:11 Primary Reason for Your Visit: encephalopathy Attending Provider: Gladis Pearce Primary Care Provider: Jj Rogers Consulting Providers: Brian Leija Instructions Patient Instructions: ED Confusion, Altered LOC Ch Discharge Orders/Prescriptions Prescriptions: Continued atorvastatin 80 MG tablet 80 mg PO QHS metoprolol succinate 200 MG tablet extended release 24 hr 200 mg PO DAILY bupropion HCl 100 MG tablet 150 mg PO TID buspirone 15 MG tablet 15 mg PO BID nitroglycerin 0.4 MG tablet, sublingual 0.4 mg sublingual Q5M PRN (Reason: CHEST PAIN ) multivitamin with minerals 1 EACH tablet 1 ea PO DAILY Xarelto 20 mg Tablet 20 mg PO QPM torsemide 20 mg Tablet 20 mg PO DAILY Hold Instructions: Resume on 04/28/22. sulfasalazine 500 mg Tablet 1,000 mg PO DAILY azathioprine 50 mg Tablet 50 mg PO BID lisinopril 5 mg Tablet 5 mg PO DAILY Hold Instructions: Resume on 04/28/22. pregabalin [Lyrica] 50 mg Capsule 50 mg PO BID fenofibrate 54 mg Tablet 54 mg PO DAILY simethicone 125 mg Tablet,Chewable 125 mg PO BID cholecalciferol (vitamin D3) 50 mcg (2,000 unit) Tablet 50 mcg PO DAILY spironolactone 25 MG tablet 25 mg PO DAILYCM Hold Instructions: Resume on 04/28/22. citalopram 20 mg Tablet 20 mg PO DAILY omeprazole 20 mg Capsule,Delayed Release(Dr/Ec) 20 mg PO DAILY tramadol 50 mg tablet 50 mg PO Q8H PRN (Reason: PAIN ) bisacodyl 10 mg Suppository 10 mg [place] DAILY PRN (Reason: CONSTIPATION ) ferrous sulfate 325 MG tablet 325 mg PO BIDCM diltiazem HCl [Cardizem CD] 120 mg capsule,extended release 24hr 120 mg PO QHS Referrals / Follow Up: Jj Rogers MD [Primary Care Provider] - Within 2 Weeks Disposition Disposition (needs filled in before D/C Order can be placed): Care Home Facility
--- NOTE | 2022-05-17 15:34 | CASEMGMT ---
YASMIN let Barbie at [facility] know that patient is being discharged today. Await orders. Ashley Ochoa CARBURETOR REPAIRER VIVI
--- NOTE | 2022-05-17 15:47 | CASEMGMT ---
YASMIN called [facility] and arranged for patient to get picked up at 7:30 (this was the earliest). Await orders. Ashley Ochoa MICA BUILDER VIVI
--- NOTE | 2022-05-17 16:17 | NURSING ---
Addendum entered by Erick Botello RN 05/17/22 16:18: Attempted to call at 1540. Original Note: Attempted to call report to [facility], placed on hold for 5 minutes before ending in voicemail. Will attempt to call report later.
--- NOTE | 2022-05-17 16:21 | CASEMGMT ---
YASMIN faxed orders to [facility] as well as poultry picking machine tender time. YASMIN notified RN and field secretary. Plan: d/c back to [facility] under intermediate level of care. [facility] transported via cot. Ashley TRINIDAD
--- NOTE | 2022-05-17 16:38 | CASEMGMT ---
SW faxed COVID test to [facility]. Ashley Ochoa RHIT SUSTAINABLE PRODUCTS MARKETING MANAGER
--- NOTE | 2022-05-17 16:45 | NURSING ---
Attempted second time to call report. Waited on hold for 5 minutes with no one answering.
--- NOTE | 2022-05-17 18:05 | NURSING ---
Report given to nurse on B wing for pt to be d/c to [facility].
--- NOTE | 2022-05-17 20:12 | NURSING ---
Pt IV sites discontinued and post sites intact x2. Oral care provided by ALEX Becerra. Transport arrived to take pt back to [facility]. Report given. This RN assisted with moving pt to cot. Pt cell phone, folded towel machine operator, and glasses placed in pt belonging bag and sent with pt's clothes. pt denies further needs. Ele ANTONIO
--- NOTE | 2022-05-23 12:47 | DS.PCM_ITS ---
Providers Date of Admission: 05/14/22 Date of Discharge: 05/17/22 Primary Care Physician: Dr. 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 On 2L of oxygen * titrate oxygen to maintain sats >90% * PT/OT on board. * #Cellulitis of the LLE * SIRS criteria was present and he was also hypotensive, but these have all resolved * on IV vanc and zosyn * blood cultures growing coagulase negative Staph (1/2 samples) * Pt/OT on board. * * #Bacteremia * blood culture (1 out of 2) growing coagulase negative staph. * PCR of blood also positive for coagulase negative staph * currently on IV vancomycin and zosyn * may be a contaminant * ID consulted. await rec's * * #Hypoxia: Likely due to narcolepsy and sleep apnea. Now on 2L of oxygen. Titrate oxygen to maintain sats >90% #Hypotension: resolved. #A-fib: * HR control improving * on cardizem and metoprolol * On Xarelto. * #Chronic heart failure reduced ejection fraction: * On torsemide and spironolactone as well as metoprolol and lisinopril. * has known EF of 40% #JF: resolved. #History of rheumatoid arthritis: On sulfasalazine and azathioprine #Hyperlipidemia: On statin GERD: On PPI #ALEJANDRA: Currently on BiPAP as above. #Super morbid obesity: BMI is 44.7. Complicates acute care, expected recovery and prognosis. CODE STATUS: Full code * Disposition: anticipate dc back to SNF within the next 24-48 hours Medications at Discharge Home Medications atorvastatin 80 mg tablet 80 mg PO QHS CHOLESTEROL 07/05/19 bupropion HCl 100 mg tablet 150 mg PO TID DEPRESSION 07/05/19 buspirone 15 mg tablet 15 mg PO BID ANXIETY 07/05/19 metoprolol succinate 200 mg tablet,extended release 24 hr 200 mg PO DAILY BLOOD PRESSURE 07/05/19 multivitamin with minerals 1 ea PO DAILY HEALTH MAINTENANCE 07/05/19 nitroglycerin 0.4 mg sublingual tablet 0.4 mg sublingual Q5M PRN CHEST PAIN 07/05/19 azathioprine 50 mg tablet 50 mg PO BID RHEUMATOID ARTHRITIS 11/29/21 fenofibrate 54 mg tablet 54 mg PO DAILY CHOLESTEROL 11/29/21 lisinopril 5 mg tablet 5 mg PO DAILY BLOOD PRESSURE 11/29/21 pregabalin 50 mg capsule (Lyrica) 50 mg PO BID PAIN 11/29/21 rivaroxaban 20 mg tablet (Xarelto) 20 mg PO QPM BLOOD THINNER 11/29/21 sulfasalazine 500 mg tablet 1,000 mg PO DAILY RHEUMATOID ARTHRITIS 11/29/21 torsemide 20 mg tablet 20 mg PO DAILY CONGESTIVE HEART FAILURE 11/29/21 cholecalciferol (vitamin D3) 50 mcg (2,000 unit) tablet 50 mcg PO DAILY SUPPL EMENT 04/22/22 simethicone 125 mg chewable tablet 125 mg PO BID GAS RELIEF 04/22/22 spironolactone 25 mg tablet 25 mg PO DAILYCM CONGESTIVE HEART FAILURE 04/22/22 bisacodyl 10 mg rectal suppository 10 mg LA DAILY PRN CONSTIPATION 05/14/22 citalopram 20 mg tablet 20 mg PO DAILY DEPRESSION 05/14/22 diltiazem HCl 120 mg capsule,extended release 24 hr (Cardizem CD) 120 mg PO QHS BLOOD PRESSURE 05/14/22 ferrous sulfate 325 mg (65 mg iron) tablet 325 mg PO BIDCM SUPPLEMENT 05/14/22 omeprazole 20 mg capsule,delayed release 20 mg PO DAILY ACID REFLUX 05/14/22 tramadol 50 mg tablet 50 mg PO Q8H PRN PAIN 05/14/22 Hospital Course Operations None Procedures None Summary of Care Provided Minutes Spent on Discharge: 45 Hospital Course: DEMIAN NELSON, is a 66 M with a PMH as outlined who presents via the ED from his SNF with a complaitn of altered mental status, hypoxia and hypotension. He was apparently very lethargic and couldnt really keep his eyes open. He denied any fever, chills, cough, chest pain, palpitations, dizziness, nausea, vomiting or diarrhea. REview of systems is otherwise negative.? Vitals at time of review were blood pressure 109/79.? His hypotension did respond to fluids.? Pulse rate was 117 and respiratory rate was 26 with temperature of 99.8 Fahrenheit.? He was saturating at 94% on 2 L of oxygen.? CBC showed WBC of 11.9 and hemoglobin of 10.7 with platelets of 368.? Chemistry was significant for creatinine of 1.8 and BUN of 41.? His baseline creatinine is around 1.2. Urinalysis showed no evidence of UTI. He was noted to be desaturating whilst on room air, and so was placed on BIPAP. He is being admitted to be managed for acute encephalopathy likely due to sleep apnea, as well as hypotension with SIRS criteria. He was started on broad spectrum antibiotics due to concerns about cellulitis of the lower extremities. Blood cultures were positive for coagulase negative Staph. ID reviewed him and recommended that patient's antibiotics should be discontinued as it was positive in only 1 out of 2 samples, and was likely a contaminant. Patient's encephalopathy improved markedly and he felt much better. Encephalopathy was thought to likely be due to sleep apnea as he improved on BIPAP. Hypotension also resolved. He was discharged back to his SNF on 05/17/2022. HE is to follow up with his PCP within 1-2 weeks. Patient was seen and examined prior to discharge. He had no active complaints an d felt much better. Review of systems was otherwise negative. Labs and vitals reviewed. Home meds reviewed and reconciled.? Physical Exam Const alert, oriented x3, no apparent distress and well nourished Constitutional Narrative: morbidly obese General Appearance: cooperative, comfortable and well kempt Orientation / Consciousness: awake Exam Limitations: no limitations Nutritional Appearance: morbidly obese HEENT normocephalic, head/scalp atraumatic, hearing grossly normal bilaterally and moist oral mucous membranes Eyes PERRL, EOMs intact bilaterally and conjunctivae normal Neck no lymphadenopathy and supple Lymph Lymphatic: no lymphadenopathy noted Resp Resp Narrative: Mildly diminished breath sounds bibasally. No wheezes or crackles. 2 L of oxygen at time of review. Cardio regular rate, regular rhythm, S1 normal heart sound and S2 normal heart sound Cardio Narrative: tachycardic GI normal to inspection, nondistended, normoactive bowel sounds, soft to palpation, non-tender and non-distended GI Narrative: obese abdomen Extremity Extremity Narrative: LLE mancini erythema and warmth have resolved. Skin Skin Narrative: as under extremity Neuro CN's II-XII intact bilaterally, no focal motor deficits and no sensory deficits noted Sensorium / Orientation: awake Motor Exam: strength 5/5 throughout Psych cooperative Psych Narrative: lethargic Appearance: appropriate Weight / BMI Weight Weight: 317 lb 7.45 oz Body Mass Index (BMI) 43.0 ABG / Lab / Microbiology Data Result Diagrams: 05/17/22 05:34 05/17/22 05:34 Microbiology: Microbiology 05/14/22 13:20 Blood Culture (Wb) - Anticubital Right Blood Culture - Final No growth in 5 days. 05/14/22 15:05 Blood Culture (Wb) - Anticubital Right Bacteria Detection (PCR) - Final Coag Negative Staph 05/14/22 15:05 Blood Culture (Wb) - Anticubital Right Blood Culture - Final Coag Negative Staph 05/17/22 15:35 Nasal Secretion SARS-CoV-2 Antigen (Rapid) - Final SARS-CoV-2 (COVID 19) 05/14/22 13:00 Urine Catheter - Smith Urine Culture - Final Culture exhibits no growth. 05/14/22 15:30 Nasal Secretion SARS-CoV-2 & FLU Antigen (Rapid) - Final D/C Instructions Discharge Diet: Low fat / Low cholesterol Discharge Activity: Return to Normal Activity Weight Bearing Status: Weight bearing as tolerated Call your doctor if you observe: Fever of 101 or Higher, Shortness of breath, Dizziness, Swelling in the ankles, Chest pain and Increased palpitations (irregular heartbeat) Meaningful Use Info Meaningful Use Diagnoses (Choose all that apply): None applicable Discharge Plan Admission Admit Date/Time: 05/14/22 17:11 Primary Reason for Your Visit: encephalopathy Attending Provider: Gladis Pearce Primary Care Provider: Jj Rogers Consulting Providers: Brian Leija Instructions Patient Instructions: ED Confusion, Altered LOC Ch Discharge Orders/Prescriptions Prescriptions: Continued atorvastatin 80 MG tablet 80 mg PO QHS metoprolol succinate 200 MG tablet extended release 24 hr 200 mg PO DAILY bupropion HCl 100 MG tablet 150 mg PO TID buspirone 15 MG tablet 15 mg PO BID nitroglycerin 0.4 MG tablet, sublingual 0.4 mg sublingual Q5M PRN (Reason: CHEST PAIN ) multivitamin with minerals 1 EACH tablet 1 ea PO DAILY Xarelto 20 mg Tablet 20 mg PO QPM torsemide 20 mg Tablet 20 mg PO DAILY Hold Instructions: Resume on 04/28/22. sulfasalazine 500 mg Tablet 1,000 mg PO DAILY azathioprine 50 mg Tablet 50 mg PO BID lisinopril 5 mg Tablet 5 mg PO DAILY Hold Instructions: Resume on 04/28/22. pregabalin [Lyrica] 50 mg Capsule 50 mg PO BID fenofibrate 54 mg Tablet 54 mg PO DAILY simethicone 125 mg Tablet,Chewable 125 mg PO BID cholecalciferol (vitamin D3) 50 mcg (2,000 unit) Tablet 50 mcg PO DAILY spironolactone 25 MG tablet 25 mg PO DAILYCM Hold Instructions: Resume on 04/28/22. citalopram 20 mg Tablet 20 mg PO DAILY omeprazole 20 mg Capsule,Delayed Release(Dr/Ec) 20 mg PO DAILY tramadol 50 mg tablet 50 mg PO Q8H PRN (Reason: PAIN ) bisacodyl 10 mg Suppository 10 mg LA DAILY PRN (Reason: CONSTIPATION ) ferrous sulfate 325 MG tablet 325 mg PO BIDCM diltiazem HCl [Cardizem CD] 120 mg capsule,extended release 24hr 120 mg PO QHS Referrals / Follow Up: Jj Rogers MD [Primary Care Provider] - Within 2 Weeks Disposition Disposition (needs filled in before D/C Order can be placed): [facility] Facility Charges/Coding Visit Charges Inpatient E&M: 06047 Disch Hosp >30min
== END 2022-05-17 20:10 | disposition skilled nursing facility (03) | DRG 602 ==
LOC: ED 16:19 → PCU 16:55
PROVIDERS: Admitting Provider Student in an Organized Health Care Education/Training Program; Emergency Provider Emergency Medicine; PCP Family Medicine; Visit Provider Student in an Organized Health Care Education/Training Program
DX: L03.116 Cellulitis of left lower limb (principal); G93.41 Metabolic encephalopathy; R78.81 Bacteremia; N17.9 Acute kidney failure, unspecified; I50.22 Chronic systolic (congestive) heart failure; Z68.41 Body mass index [BMI] 40.0-44.9, adult; I11.0 Hypertensive heart disease with heart failure; I95.9 Hypotension, unspecified; I48.91 Unspecified atrial fibrillation; E66.01 Morbid (severe) obesity due to excess calories; M06.9 Rheumatoid arthritis, unspecified; E78.00 Pure hypercholesterolemia, unspecified; I25.10 Atherosclerotic heart disease of native coronary artery without angina pectoris; I25.5 Ischemic cardiomyopathy; K21.9 Gastro-esophageal reflux disease without esophagitis; G47.33 Obstructive sleep apnea (adult) (pediatric); G47.419 Narcolepsy without cataplexy; R09.02 Hypoxemia; F32.A Depression, unspecified; Z20.822 Contact with and (suspected) exposure to COVID-19; Z79.01 Long term (current) use of anticoagulants; Z79.899 Other long term (current) drug therapy; Z87.891 Personal history of nicotine dependence; Z95.1 Presence of aortocoronary bypass graft
CPT/HCPCS: 36415; 36600; 51702; 70450; 71045; 80048; 80053; 80202; 81001; 82140; 82803; 82962; 83605; 84484; 85025; 87040; 87086; 87149; 87428; 87811; 93005; 94002; 94762; 97110; 97162; 97166; 97530; 97535; 99285; J7030; J7040; J7050; A4216

== ENCOUNTER 2022-08-03 18:34 | Inpatient (IN) | payer MEDICARE, MEDICAID, SELFPAY ==
[2022-08-03] VITALS (11 sets, daily range): BP systolic 94–141; BP diastolic 60–100; PULSE 134–167; RESP 18–29; TEMP 36.3–37.3; O2SAT 94–98; BMI 39.7; BMI 38.1
--- NOTE | 2022-08-03 19:01 | EX.ED.DYSGE1 ---
HPI <MARIANO Zamarripa - Last Filed: 08/03/22 20:46> History of Present Illness Chief Complaint: Fever Narrative Narrative: 66-year-old male with PMH of CABG, A-fib presents with low-grade fevers and reported hallucinations. He states over the last week he has been very tired with decreased appetite, myalgias, increased cough and 3 days of diarrhea. He has no abdominal pain and no diarrhea today. He tells me he has been hallucinating seeing people in his room for the last 3 weeks but today it occurred when a staff member was there and they were concerned and sent him to the ED for evaluation. He denies vomiting, chest pain, or shortness of breath. He states he went to this facility 3 weeks ago due to generalized weakness and he has not walked since he got there. PFSH <MARIANO Zamarripa - Last Filed: 08/03/22 20:46> [facility] Medical History Anxiety Back pain Blackout Cardiology follow-up encounter CHF (congestive heart failure) Coronary artery disease involving coronary bypass graft Depression Dietary restriction Difficulty chewing Former smoker Graves disease High cholesterol History of atrial fibrillation History of echocardiogram History of edema History of heart attack History of kidney stones History of pain when walking History of renal disease History of stomach ulcers History of stress test Hypertension Ischemic cardiomyopathy Neuropathy Nocturia Rheumatoid arthritis Shortness of breath on exertion Walker as ambulation aid Home Medications atorvastatin 80 mg tablet 80 mg PO QHS CHOLESTEROL 07/05/19 [History Last Taken 05/13/22] bupropion HCl 100 mg tablet 150 mg PO TID DEPRESSION 07/05/19 [History Last Taken 05/14/22] buspirone 15 mg tablet 15 mg PO BID ANXIETY 07/05/19 [History Last Taken 05/14/22] metoprolol succinate 200 mg tablet,extended release 24 hr 200 mg PO DAILY BLOOD PRESSURE 07/05/19 [History Last Taken 05/14/22] multivitamin with minerals 1 ea PO DAILY HEALTH MAINTENANCE 07/05/19 [History Last Taken 05/14/22] nitroglycerin 0.4 mg sublingual tablet 0.4 mg sublingual Q5M PRN CHEST PAIN 07/05/19 [History Last Taken Unknown] azathioprine 50 mg tablet 50 mg PO BID RHEUMATOID ARTHRITIS 11/29/21 [History Last Taken 05/14/22] fenofibrate 54 mg tablet 54 mg PO DAILY CHOLESTEROL 11/29/21 [History Last Taken 05/14/22] lisinopril 5 mg tablet 5 mg PO DAILY BLOOD PRESSURE 11/29/21 [History Last Taken 05/14/22] pregabalin 50 mg capsule (Lyrica) 50 mg PO BID PAIN 11/29/21 [History Last Taken 05/14/22] rivaroxaban 20 mg tablet (Xarelto) 20 mg PO QPM BLOOD THINNER 11/29/21 [History Last Taken 05/13/22] sulfasalazine 500 mg tablet 1,000 mg PO DAILY RHEUMATOID ARTHRITIS 11/29/21 [History Last Taken 05/13/22 12:00] torsemide 20 mg tablet 20 mg PO DAILY CONGESTIVE HEART FAILURE 11/29/21 [History Last Taken 05/14/22] cholecalciferol (vitamin D3) 50 mcg (2,000 unit) tablet 2,000 mcg PO DAILY SUPPLEMENT 04/22/22 [History Last Taken 05/14/22] simethicone 125 mg chewable tablet 125 mg PO BID GAS RELIEF 04/22/22 [History Last Taken 05/14/22] spironolactone 25 mg tablet 25 mg PO DAILYCM CONGESTIVE HEART FAILURE 04/22/22 [History Last Taken 05/13/22 12:00] bisacodyl 10 mg rectal suppository 10 mg OK DAILY PRN CONSTIPATION 05/14/22 [History Last Taken Unknown] citalopram 20 mg tablet 20 mg PO DAILY DEPRESSION 05/14/22 [History Last Taken 05/14/22] diltiazem HCl 120 mg capsule,extended release 24 hr (Cardizem CD) 120 mg PO QHS BLOOD PRESSURE 05/14/22 [History Last Taken 05/13/22] ferrous sulfate 325 mg (65 mg iron) tablet 325 mg PO BIDCM SUPPLEMENT 05/14/22 [History Last Taken 05/14/22 08:00] omeprazole 20 mg capsule,delayed release 20 mg PO DAILY ACID REFLUX 05/14/22 [History Last Taken 05/14/22] tramadol 50 mg tablet 50 mg PO Q8H PRN PAIN 05/14/22 [History Last Taken Unknown] melatonin 5 mg tablet 5 mg PO QHS 08/03/22 [History Last Taken Unknown] Allergy/AdvReac Type Severity Reaction Status Date / Time Penicillins [PCN] Allergy Swelling Verified 05/14/22 12:51 Family History Mother Cancer Father Heart disease Thyroid disorder Hypertension Sister Kidney disease Cancer Diabetes Brother Diabetes Surgical History H/O hernia repair History of cardiac catheterization History of esophagogastroduodenoscopy (EGD) History of incision and drainage Hx of colectomy Hx of colonoscopy Hx of heart bypass surgery S/P cervical spinal fusion S/P right knee arthroscopy Social History Smoking Status: Former smoker ROS <MARIANO Zamarripa - Last Filed: 08/03/22 20:46> ROS ED ROS Narrative Constitutional: Positive for fever, malaise. ENT: Negative for sore throat, rhinorrhea. CVS: Negative for palpitations, chest pain. Respiratory: Negative for shortness of breath, cough. GI: Positive for diarrhea. Negative for abdominal pain, nausea, vomiting, melena, hematochezia. : Negative for dysuria, hematuria or frequency. Neuro: Negative for headache. EXAM <MARIANO Zamarripa - Last Filed: 08/03/22 20:46> Physical Exam Narrative Exam Narrative: CONST: Patient sitting in no acute distress. EYES: Normal inspection. ENT: Normal inspection, slightly dry mucous membranes. NECK: Normal inspection. No meningismus. RESP: No respiratory distress, CTAB. CVS: Rapid irregularly irregular rhythm, no murmur, no gallop. ABD: Soft and nontender, no guarding or rebound, nondistended. Back: Normal inspection. SKIN: Color normal, no rash, warm, dry, intact. EXTREMITIES:. Bilateral lower legs have changes of chronic venous stasis. NEURO: Oriented x4. PSYCH: Normal affect. Const Vital Signs: 08/03/22 18:35 08/03/22 18:54 08/03/22 18:59 Temperature 99.2 F H 99.2 F H Temperature Source Temporal Oral Pulse Rate 134 H Respiratory Rate 20 H Blood Pressure 116/90 H Blood Pressure Mean 98 Pulse Ox 95 97 Oxygen Delivery Method Nasal Cannula Nasal Cannula Oxygen Flow Rate (L/min) 2 08/03/22 20:33 Temperature 98.2 F Temperature Source Oral Pulse Rate 150 H Respiratory Rate 29 H Blood Pressure 112/96 H Blood Pressure Mean 101 Pulse Ox 96 Oxygen Delivery Method Nasal Cannula Oxygen Flow Rate (L/min) 2 <Dr. Eric Mallory MD - Last Filed: 08/03/22 21:18> Physical Exam Const Vital Signs: 08/03/22 18:35 08/03/22 18:54 08/03/22 18:59 Temperature 99.2 F H 99.2 F H Temperature Source Temporal Oral Pulse Rate 134 H Respiratory Rate 20 H Blood Pressure 116/90 H Blood Pressure Mean 98 Pulse Ox 95 97 Oxygen Delivery Method Nasal Cannula Nasal Cannula Oxygen Flow Rate (L/min) 2 08/03/22 20:33 Temperature 98.2 F Temperature Source Oral Pulse Rate 150 H Respiratory Rate 29 H Blood Pressure 112/96 H Blood Pressure Mean 101 Pulse Ox 96 Oxygen Delivery Method Nasal Cannula Oxygen Flow Rate (L/min) 2 MDM <MARIANO Zamarripa - Last Filed: 08/03/22 20:46> [facility] MDM Narrative Medical decision making narrative: History gathered from: Patient and paramedics Patient's had 1 week of fatigue, cough, some diarrhea. Generally does not feel well. He appears ill but nontoxic. Heart rates in the 130s with otherwise normal vital signs. He wears chronic oxygen since he has been at the rehab facility and he is on 2 L here and satting 95%. On exam he has dry mucous membranes. He is in A-fib RVR. Lungs clear. Abdomen soft and nontender. Sepsis work-up was initiated and he was given IV fluids and Tylenol. He has a white count of 12.7 and hemoglobin of 8.8 is slightly lower than previous but has been this low before and he is not having any symptoms of GI bleeding. BMP shows sodium 134, potassium 3.2, normal renal function. CXR shows left-sided infiltrate with small effusion. Since COVID/flu swabs are negative he will be treated for community-acquired pneumonia with IV Rocephin and Zithromax. He remains tachycardic and is still getting fluids and I ordered a cardizem bolus. He requires admission for sepsis secondary to pneumonia and case was discussed with the hospitalist. Consults: Hospitalist Differential: viral illness, pneumonia, UTI Lab Data Attestation: I reviewed the patient's lab results. Labs: Laboratory Results - last 24 hr 08/03/22 08/03/22 08/03/22 19:05 19:05 19:05 WBC 12.7 H RBC 3.28 L Hgb 8.8 L Hct 28.1 L MCV 85.7 MCH 26.8 L MCHC 31.3 L RDW Std Deviation 50.9 H RDW Coeff of Trev 16.3 H Plt Count 402 MPV 8.5 Immature Gran % (Auto) 0.700 Neut % (Auto) 83.8 H Lymph % (Auto) 6.6 L Lyon % (Auto) 7.0 Eos % (Auto) 1.6 Baso % (Auto) 0.3 Absolute Neuts (auto) 10.6 H Absolute Lymphs (auto) 0.84 Nucleated RBC % 0 PT 21.3 H INR 1.8 APTT 46.4 H Sodium 134 L Potassium 3.2 L Chloride 98 Carbon Dioxide 28.0 Anion Gap 8 BUN 25 H Creatinine 1.15 Estim Creat Clear Calc 69.48 Est GFR (MDRD) Af Amer 81 Est GFR (MDRD) Non-Af 67 BUN/Creatinine Ratio 21.7 H Glucose 104 Lactic Acid Calcium 10.2 H Total Bilirubin 0.50 AST 19 ALT 14 L Alkaline Phosphatase 79 Total Protein 8.2 Albumin 1.9 L Globulin 6.3 H Albumin/Globulin Ratio 0.3 L Urine Color Urine Clarity Urine pH Ur Specific [place] Urine Protein Urine Glucose (UA) Urine Ketones Urine Occult Blood Urine Nitrite Urine Bilirubin Urine Urobilinogen Ur Leukocyte Esterase Urine RBC Urine WBC Ur Squamous Epith Cells Urine Bacteria Urine Mucus 08/03/22 08/03/22 19:05 20:10 WBC RBC Hgb Hct MCV MCH MCHC RDW Std Deviation RDW Coeff of Trev Plt Count MPV Immature Gran % (Auto) Neut % (Auto) Lymph % (Auto) Lyon % (Auto) Eos % (Auto) Baso % (Auto) Absolute Neuts (auto) Absolute Lymphs (auto) Nucleated RBC % PT INR APTT Sodium Potassium Chloride Carbon Dioxide Anion Gap BUN Creatinine Estim Creat Clear Calc Est GFR (MDRD) Af Amer Est GFR (MDRD) Non-Af BUN/Creatinine Ratio Glucose Lactic Acid 1.4 Calcium Total Bilirubin AST ALT Alkaline Phosphatase Total Protein Albumin Globulin Albumin/Globulin Ratio Urine Color Delfina Urine Clarity Clear Urine pH 5.0 Ur Specific [place] 1.020 Urine Protein 15 H Urine Glucose (UA) Normal Urine Ketones Negative Urine Occult Blood 50 H Urine Nitrite Negative Urine Bilirubin 1 H Urine Urobilinogen 1 H Ur Leukocyte Esterase 25 H Urine RBC 0-5 SEEN Urine WBC 0-5 SEEN Ur Squamous Epith Cells 0 SEEN Urine Bacteria 0 SEEN Urine Mucus 0 SEEN Radiography Diagnostic Testing: Clinical Impression(s) from Imaging Studies Chest X-Ray 08/03/22 19:16 IMPRESSION: Possible mild diffuse hazy pulmonary edema. Possible atelectasis or infiltrate in the lower left lung with small effusion. Electronically Signed: Dontae Hussein MD at 19:28 EDT , ED attending interpretation of chest x-ray shows left-sided infiltrate/effusion. <Dr. Eric Malolry MD - Last Filed: 08/03/22 21:18> [facility] MDM Narrative Medical decision making narrative: History gathered from: Patient and paramedics Patient's had 1 week of fatigue, cough, some diarrhea. Generally does not feel well. He appears ill but nontoxic. Heart rates in the 130s with otherwise normal vital signs. He wears chronic oxygen since he has been at the rehab facility and he is on 2 L here and satting 95%. On exam he has dry mucous membranes. He is in A-fib RVR. Lungs clear. Abdomen soft and nontender. Sepsis work-up was initiated and he was given IV fluids and Tylenol. He has a white count of 12.7 and hemoglobin of 8.8 is slightly lower than previous but has been this low before and he is not having any symptoms of GI bleeding. BMP shows sodium 134, potassium 3.2, normal renal function. CXR shows left-sided infiltrate with small effusion. Since COVID/flu swabs are negative he will be treated for community-acquired pneumonia with IV Rocephin and Zithromax. He remains tachycardic and is still getting fluids and I ordered a cardizem bolus. He requires admission for sepsis secondary to pneumonia and case was discussed with the hospitalist. Consults: Hospitalist Differential: viral illness, pneumonia, UTI [place]: Patient was seen by me. I agree with the above extenders note, note was done by both me and the PA as I may have edited some of the above. Patient continues to have A-fib with RVR despite Cardizem I then started the patient on a Cardizem drip and rebolused him. He also has pneumonia with fevers which was treated with antibiotics. He will need admission. Patient had significant comorbidities, A-fib with RVR requiring frequent monitoring, as well as a pneumonia. Lab Data Labs: Laboratory Results - last 24 hr 08/03/22 08/03/22 08/03/22 19:05 19:05 19:05 WBC 12.7 H RBC 3.28 L Hgb 8.8 L Hct 28.1 L MCV 85.7 MCH 26.8 L MCHC 31.3 L RDW Std Deviation 50.9 H RDW Coeff of Trev 16.3 H Plt Count 402 MPV 8.5 Immature Gran % (Auto) 0.700 Neut % (Auto) 83.8 H Lymph % (Auto) 6.6 L Lyon % (Auto) 7.0 Eos % (Auto) 1.6 Baso % (Auto) 0.3 Absolute Neuts (auto) 10.6 H Absolute Lymphs (auto) 0.84 Nucleated RBC % 0 PT 21.3 H INR 1.8 APTT 46.4 H Sodium 134 L Potassium 3.2 L Chloride 98 Carbon Dioxide 28.0 Anion Gap 8 BUN 25 H Creatinine 1.15 Estim Creat Clear Calc 69.48 Est GFR (MDRD) Af Amer 81 Est GFR (MDRD) Non-Af 67 BUN/Creatinine Ratio 21.7 H Glucose 104 Lactic Acid Calcium 10.2 H Total Bilirubin 0.50 AST 19 ALT 14 L Alkaline Phosphatase 79 Total Protein 8.2 Albumin 1.9 L Globulin 6.3 H Albumin/Globulin Ratio 0.3 L Urine Color Urine Clarity Urine pH Ur Specific [place] Urine Protein Urine Glucose (UA) Urine Ketones Urine Occult Blood Urine Nitrite Urine Bilirubin Urine Urobilinogen Ur Leukocyte Esterase Urine RBC Urine WBC Ur Squamous Epith Cells Urine Bacteria Urine Mucus 08/03/22 08/03/22 19:05 20:10 WBC RBC Hgb Hct MCV MCH MCHC RDW Std Deviation RDW Coeff of Trev Plt Count MPV Immature Gran % (Auto) Neut % (Auto) Lymph % (Auto) [place] % (Auto) Eos % (Auto) Baso % (Auto) Absolute Neuts (auto) Absolute Lymphs (auto) Nucleated RBC % PT INR APTT Sodium Potassium Chloride Carbon Dioxide Anion Gap BUN Creatinine Estim Creat Clear Calc Est GFR (MDRD) Af Amer Est GFR (MDRD) Non-Af BUN/Creatinine Ratio Glucose Lactic Acid 1.4 Calcium Total Bilirubin AST ALT Alkaline Phosphatase Total Protein Albumin Globulin Albumin/Globulin Ratio Urine Color Delfina Urine Clarity Clear Urine pH 5.0 Ur Specific [place] 1.020 Urine Protein 15 H Urine Glucose (UA) Normal Urine Ketones Negative Urine Occult Blood 50 H Urine Nitrite Negative Urine Bilirubin 1 H Urine Urobilinogen 1 H Ur Leukocyte Esterase 25 H Urine RBC 0-5 SEEN Urine WBC 0-5 SEEN Ur Squamous Epith Cells 0 SEEN Urine Bacteria 0 SEEN Urine Mucus 0 SEEN Radiography Diagnostic Testing: Clinical Impression(s) from Imaging Studies Chest X-Ray 08/03/22 19:16 IMPRESSION: Possible mild diffuse hazy pulmonary edema. Possible atelectasis or infiltrate in the lower left lung with small effusion. Electronically Signed: Dontae Hussein MD at 19:28 EDT , <Dr. Eric Mallory MD - Last Filed: 08/03/22 21:18> Critical Care Time Critical Care Time: Yes Critical care time (excluding procedures): 30-74 minutes, Discussing w/Patient &/or Family/Human Resources Hr Representative, Discussing w/Consultants, Arranging Admission or Transfer and Performing Direct Patient Care at Bedside Discharge Plan Triage Chief Complaint: Fever ED Midlevel Provider: Ting Vaca ED Provider: Eric Mallory Dx/Rx/DC Orders Clinical Impression: Sepsis, Pneumonia, Acute hypokalemia, Atrial fibrillation with rapid ventricular response Prescriptions: No Action atorvastatin 80 MG tablet 80 mg PO QHS metoprolol succinate 200 MG tablet extended release 24 hr 200 mg PO DAILY bupropion HCl 100 MG tablet 150 mg PO TID buspirone 15 MG tablet 15 mg PO BID nitroglycerin 0.4 MG tablet, sublingual 0.4 mg sublingual Q5M PRN (Reason: CHEST PAIN ) multivitamin with minerals 1 EACH tablet 1 ea PO DAILY Xarelto 20 mg Tablet 20 mg PO QPM torsemide 20 mg Tablet 20 mg PO DAILY Hold Instructions: Resume on 04/28/22. sulfasalazine 500 mg Tablet 1,000 mg PO DAILY azathioprine 50 mg Tablet 50 mg PO BID lisinopril 5 mg Tablet 5 mg PO DAILY Hold Instructions: Resume on 04/28/22. pregabalin [Lyrica] 50 mg Capsule 50 mg PO BID fenofibrate 54 mg Tablet 54 mg PO DAILY simethicone 125 mg Tablet,Chewable 125 mg PO BID cholecalciferol (vitamin D3) 50 mcg (2,000 unit) Tablet 2,000 mcg PO DAILY spironolactone 25 MG tablet 25 mg PO DAILYCM Hold Instructions: Resume on 04/28/22. citalopram 20 mg Tablet 20 mg PO DAILY omeprazole 20 mg Capsule,Delayed Release(Dr/Ec) 20 mg PO DAILY tramadol 50 mg tablet 50 mg PO Q8H PRN (Reason: PAIN ) bisacodyl 10 mg Suppository 10 mg OK DAILY PRN (Reason: CONSTIPATION ) ferrous sulfate 325 MG tablet 325 mg PO BIDCM diltiazem HCl [Cardizem CD] 120 mg capsule,extended release 24hr 120 mg PO QHS melatonin 5 mg Tablet 5 mg PO QHS Primary Care Provider: Jj Rogers Referrals: Jj Rogers MD [Primary Care Provider] - Disposition Disposition: Acute Care Hospital [facility]
[2022-08-03] MEDS: 0.9% Normal Saline 1,000 ML 999 ML IV ×2 (19:03→20:31)
[2022-08-03] MEDS: Acetaminophen 325 MG Tablet 650 MG PO (19:03)
--- NOTE | 2022-08-03 19:16 | RAD_ITS ---
STUDY: X-RAY CHEST REASON FOR EXAM: Male, 66 years old. fever TECHNIQUE: Single AP portable view of the chest. COMPARISON: 05/14/2022. FINDINGS: Moderate lung volumes. Mild hazy density throughout the lungs suggestive of very mild interstitial edema. Cannot exclude atelectasis or infiltrate in the lower left lung with possible small effusion. There is moderate cardiac enlargement. Previous CABG. Normal mediastinum and bhupinder. Normal visualized pulmonary arteries. Normal visualized aortic arch and descending thoracic aorta. There are diffuse degenerative changes of the visualized thoracic spine. There is degenerative osteoarthritis of the bilateral shoulders. There is no demonstrated abnormality of the visualized soft tissue structures of the upper abdomen. RAD/Chest 1 View (Portable) IMPRESSION: Possible mild diffuse hazy pulmonary edema. Possible atelectasis or infiltrate in the lower left lung with small effusion. Electronically Signed: Dontae Hussein MD at 19:28 EDT ,
[2022-08-03 19:17] LABS: Absolute Lymphocyte Count 0.84 X10^3/uL (0.83-4.51); Absolute Neutrophil Count 10.6 X10^3/uL (2.0-7.7); Basophil# 0.04 X10^3/uL; Basophil% 0.3 % (0-1); Eosinophils% 1.6 % (0-5); Hematocrit 28.1 % (40-54); Hemoglobin 8.8 g/dL (13.0-16.5); Lymphocyte # 0.84 X10^3/ul (0.83-4.51); Lymphocyte % 6.6 % (19-41); Mean Corp Hgb Conc 31.3 g/dL (32-36); Mean Corpuscular Hgb 26.8 pg (27.0-32.0); Mean Corpuscular Volume 85.7 fL (80-94); Mean Platelet Vol. 8.5 fl (6.2-12.0); Monocyte# 0.89 X10^3/uL; NRBC Flagged by Analyzer 0 % (0-5); Neutrophil # 10.61 X10^3/uL (2.7-7.7); Neutrophil % 83.8 % (47-70); Platelet Count 402 K/mm3 (150-450); RBC Distribution Width CV 16.3 % (11.6-14.6); RBC Distribution Width SD 50.9 fl (35.1-43.9); Red Blood Count 3.28 M/mm3 (4.6-6.2); White Blood Count 12.7 K/mm3 (4.4-11.0)
[2022-08-03 19:31] LABS: International Normalized Ratio 1.8; Prothrombin Time (Protime)PT. 21.3 SECONDS (11.7-14.9)
[2022-08-03 19:32] LABS: Partial Thromboplast Time 46.4 Seconds (24.1-36.2)
[2022-08-03 19:42] LABS: ALB/GLOB Ratio 0.3 RATIO (0.9-2.4); AST(SGOT) 19 U/L (15-37); Alanine Aminotransfer ALT/SGPT 14 U/L (16-61); Albumin, Serum 1.9 g/dL (3.2-5.0); Alkaline Phosphatase 79 U/L (45-117); Anion Gap 8 (5-15); BUN 25 mg/dL (7-18); BUN/Creat Ratio 21.7 RATIO (10-20); Calcium,Total 10.2 mg/dL (8.5-10.1); Chloride 98 mmol/L (98-107); Creatinine, Serum 1.15 mg/dL (0.70-1.30); EST Glomerular Filtration Rate 67 mL/min (>60); Est Glom Filt Rate - Afr Amer 81 mL/min (>60); Estimated Creatinine Clearance 69.48 ml/min; Globulin 6.3 g/dL (2.2-4.2); Glucose 104 mg/dL (74-106); Lactic Acid 1.4 mmol/L (0.4-1.9); Potassium 3.2 mmol/L (3.5-5.1); Protein, Total 8.2 g/dL (6.4-8.2); Sodium Level 134 mmol/L (136-145)
[2022-08-03 20:14] LABS: Bacteria 0 SEEN /hpf (None Seen); Color, Urine Amber (Yellow); Glucose, Dipstick Normal (Normal); Ketone-Dipstick Negative (Negative); Leukocyte Esterase-Dipstick 25 /ul (Negative); Mucous, Urine 0 SEEN /hpf (<or=2+); Nitrite-Dipstick Negative (Negative); Occult Blood-Urine 50 /ul (Negative); Protein-Dipstick 15 mg/dl (Negative); Squamous Epithelial Cells - UA 0 SEEN /hpf (0-5); Urine Clarity Clear (Clear); Urine Urobilinogen 1 mg/dl (Normal)
[2022-08-03] MEDS: Potassium Chloride Oral Tablet 20 MEQ PO (20:31)
[2022-08-03 20:33] LABS: Urine Bilirubin Dipstick 1 mg/dL (Negative)
[2022-08-03 20:37] LABS: Red Blood Cells-Urine 0-5 SEEN /hpf (0-5); White Blood Cells 0-5 SEEN /hpf (0-5)
[2022-08-03] MEDS: dilTIAZem 25 MG/5 ML Vial 10 MG IV BOLUS (20:46)
[2022-08-03] MEDS: dilTIAZem 25 MG/5 ML Vial 20 MG IV BOLUS (21:16)
--- NOTE | 2022-08-03 21:39 | HP.PCM.HOS_ITS ---
HPI - General General Date of Admission: 08/03/22 Date of Service: 08/03/22 Chief Complaint: Rigors HPI Narrative DEMIAN NELSON, is a 66 M with a significant history of CAD status post CABG and stents who presents to the emergency department from a group home with rigors. Patient reports having rigors that started about 7 to 8 weeks ago but on the day of presentation his rigors got worse. Also patient reports high-grade fever of between 101 to 102 Fahrenheit at the group home. Further, patient has fatigue and anorexia. Reportedly he had diarrhea but his diarrhea resolved. He described diarrhea as multiple loose stools. Last time he had diarrhea was a day before presentation. Reportedly he has been having visual hallucinations for the past 2 to 3 weeks. On the day of presentation, patient was found to be talking to somebody in his room who was not actually there. Reportedly patient has been at the group home for about 3 weeks. However on history taking patient stated that he has been at the group home for about 7 to 8 weeks. Per report received patient has been confused yet patient denies any confusion. Patient reports intermittent cough that has not changed from his baseline. He reported that his cough is sometimes productive for white sputum (not clear sputum) and yellow sputum. At the emergency department patient was found to be in A-fib with RVR. Patient reports being immobile at the group home and requiring a Sallie lift. [facility]LY [facility] Medical History Anxiety Atrial fibrillation Back pain Blackout Cardiology follow-up encounter CHF (congestive heart failure) Coronary artery disease involving coronary bypass graft Depression Dietary restriction Difficulty chewing Former smoker Graves disease High cholesterol History of atrial fibrillation History of echocardiogram History of edema History of heart attack History of kidney stones History of pain when walking History of renal disease History of stomach ulcers History of stress test Hypertension Ischemic cardiomyopathy Neuropathy Nocturia Rheumatoid arthritis Shortness of breath on exertion Walker as ambulation aid Home Medications atorvastatin 80 mg tablet 80 mg PO QHS CHOLESTEROL 07/05/19 [History Last Taken 05/13/22] bupropion HCl 100 mg tablet 150 mg PO TID DEPRESSION 07/05/19 [History Last Taken 05/14/22] buspirone 15 mg tablet 15 mg PO BID ANXIETY 07/05/19 [History Last Taken 05/14/22] metoprolol succinate 200 mg tablet,extended release 24 hr 200 mg PO DAILY BLOOD PRESSURE 07/05/19 [History Last Taken 05/14/22] multivitamin with minerals 1 ea PO DAILY HEALTH MAINTENANCE 07/05/19 [History Last Taken 05/14/22] nitroglycerin 0.4 mg sublingual tablet 0.4 mg sublingual Q5M PRN CHEST PAIN 07/05/19 [History Last Taken Unknown] azathioprine 50 mg tablet 50 mg PO BID RHEUMATOID ARTHRITIS 11/29/21 [History Last Taken 05/14/22] fenofibrate 54 mg tablet 54 mg PO DAILY CHOLESTEROL 11/29/21 [History Last Taken 05/14/22] lisinopril 5 mg tablet 5 mg PO DAILY BLOOD PRESSURE 11/29/21 [History Last Taken 05/14/22] pregabalin 50 mg capsule (Lyrica) 50 mg PO BID PAIN 11/29/21 [History Last Taken 05/14/22] rivaroxaban 20 mg tablet (Xarelto) 20 mg PO QPM BLOOD THINNER 11/29/21 [History Last Taken 05/13/22] sulfasalazine 500 mg tablet 1,000 mg PO DAILY RHEUMATOID ARTHRITIS 11/29/21 [History Last Taken 05/13/22 12:00] torsemide 20 mg tablet 20 mg PO DAILY CONGESTIVE HEART FAILURE 11/29/21 [History Last Taken 05/14/22] cholecalciferol (vitamin D3) 50 mcg (2,000 unit) tablet 2,000 mcg PO DAILY SUPPLEMENT 04/22/22 [History Last Taken 05/14/22] simethicone 125 mg chewable tablet 125 mg PO BID GAS RELIEF 04/22/22 [History Last Taken 05/14/22] spironolactone 25 mg tablet 25 mg PO DAILYCM CONGESTIVE HEART FAILURE 04/22/22 [History Last Taken 05/13/22 12:00] bisacodyl 10 mg rectal suppository 10 mg OK DAILY PRN CONSTIPATION 05/14/22 [History Last Taken Unknown] citalopram 20 mg tablet 20 mg PO DAILY DEPRESSION 05/14/22 [History Last Taken 05/14/22] diltiazem HCl 120 mg capsule,extended release 24 hr (Cardizem CD) 120 mg PO QHS BLOOD PRESSURE 05/14/22 [History Last Taken 05/13/22] ferrous sulfate 325 mg (65 mg iron) tablet 325 mg PO BIDCM SUPPLEMENT 05/14/22 [History Last Taken 05/14/22 08:00] omeprazole 20 mg capsule,delayed release 20 mg PO DAILY ACID REFLUX 05/14/22 [History Last Taken 05/14/22] tramadol 50 mg tablet 50 mg PO Q8H PRN PAIN 05/14/22 [History Last Taken Unknown] melatonin 5 mg tablet 5 mg PO QHS 08/03/22 [History Last Taken Unknown] Allergy/AdvReac Type Severity Reaction Status Date / Time Penicillins [PCN] Allergy Swelling Verified 05/14/22 12:51 Family History Mother Cancer Father Heart disease Thyroid disorder Hypertension Sister Kidney disease Cancer Diabetes Brother Diabetes Surgical History H/O hernia repair History of cardiac catheterization History of esophagogastroduodenoscopy (EGD) History of incision and drainage Hx of colectomy Hx of colonoscopy Hx of heart bypass surgery S/P cervical spinal fusion S/P right knee arthroscopy Social History Smoking Status: Former smoker ROS ROS Narrative Pertinent positives and pertinent negatives as noted in HPI. All other systems were reviewed and are negative Vital Signs Vital Signs Vital Signs: 08/03/22 18:35 08/03/22 18:54 08/03/22 18:59 Temperature 99.2 F H 99.2 F H Temperature Source Temporal Oral Pulse Rate 134 H Respiratory Rate 20 H Blood Pressure 116/90 H Blood Pressure Mean 98 Pulse Ox 95 97 Oxygen Delivery Method Nasal Cannula Nasal Cannula Oxygen Flow Rate (L/min) 2 08/03/22 20:33 Temperature 98.2 F Temperature Source Oral Pulse Rate 150 H Respiratory Rate 29 H Blood Pressure 112/96 H Blood Pressure Mean 101 Pulse Ox 96 Oxygen Delivery Method Nasal Cannula Oxygen Flow Rate (L/min) 2 Weight Weight: 136.8 kg Body Mass Index (BMI) 39.7 Physical Exam Narrative Physical exam: General: Well-nourished, well-developed. Head: Normocephalic, atraumatic, no tenderness Eyes: Vision is grossly intact. EOMI ENT: Poor dentition. No trauma, moist mucous membranes, no rhinorrhea Neck: Nontender, No thyromegaly. CVS: Irregularly irregular rate and rhythm. S1-S2 present. No murmur, gallop or rub. Respiratory : Diminished bilaterally, chest wall nontender Abdomen: Soft, nontender, nondistended, normal bowel sounds, no masses : Deferred Back: Nontender, no CVA tenderness, no midline spinal tenderness, deformities, step-offs Extremities: Strength in bilateral upper extremity 5 out of 5. Strength bilateral lower extremity 4 out of 5. Skin: Hyperpigmentation of bilateral lower legs. no trauma, abrasions Neuro: Alert, oriented, cranial nerves II through XII grossly intact. Psychiatry: Normal mood. Normal affect. Not depressed. Not anxious. Results Lab / Micro Data Attestation: I reviewed the patient's lab results. Result Diagrams: 08/03/22 19:05 08/03/22 19:05 Labs: Laboratory Results - last 24 hr 08/03/22 19:05: WBC 12.7 H, RBC 3.28 L, Hgb 8.8 L, Hct 28.1 L, MCV 85.7, MCH 26.8 L, MCHC 31.3 L, RDW Std Deviation 50.9 H, RDW Coeff of Trev 16.3 H, Plt Count 402, MPV 8.5, Immature Gran % (Auto) 0.700, Neut % (Auto) 83.8 H, Lymph % (Auto) 6.6 L, [place] % (Auto) 7.0, Eos % (Auto) 1.6, Baso % (Auto) 0.3, Absolute Neuts (auto) 10.6 H, Absolute Lymphs (auto) 0.84, Nucleated RBC % 0 08/03/22 19:05: PT 21.3 H, INR 1.8, APTT 46.4 H 08/03/22 19:05: Sodium 134 L, Potassium 3.2 L, Chloride 98, Carbon Dioxide 28.0, Anion Gap 8, BUN 25 H, Creatinine 1.15, Estim Creat Clear Calc 69.48, Est GFR (MDRD) Af Amer 81, Est GFR (MDRD) Non-Af 67, BUN/Creatinine Ratio 21.7 H, Glucose 104, Calcium 10.2 H, Total Bilirubin 0.50, AST 19, ALT 14 L, Alkaline Phosphatase 79, Total Protein 8.2, Albumin 1.9 L, Globulin 6.3 H, Albumin/Gl obulin Ratio 0.3 L 08/03/22 19:05: Lactic Acid 1.4 08/03/22 20:10: Urine Color Delfina, Urine Clarity Clear, Urine pH 5.0, Ur Specific [place] 1.020, Urine Protein 15 H, Urine Glucose (UA) Normal, Urine Ketones Negative, Urine Occult Blood 50 H, Urine Nitrite Negative, Urine Bilirubin 1 H, Urine Urobilinogen 1 H, Ur Leukocyte Esterase 25 H, Urine RBC 0-5 SEEN, Urine WBC 0-5 SEEN, Ur Squamous Epith Cells 0 SEEN, Urine Bacteria 0 SEEN, Urine Mucus 0 SEEN Micro: Microbiology 08/03/22 19:00 Nasal Secretion SARS-CoV-2 & FLU Antigen (Rapid) - Final Radiology Impression Chest X-Ray 08/03/22 19:16 IMPRESSION: Possible mild diffuse hazy pulmonary edema. Possible atelectasis or infiltrate in the lower left lung with small effusion. Electronically Signed: Dontae Hussein MD at 19:28 EDT , Assessment & Plan Assessment/Plan (1) Pneumonia: QUALIFIERS: Laterality: left Lung location: lower lobe of lung Pneumonia type: due to unspecified organism Qualified Code(s): J18.9 - Pneumonia, unspecified organism (2) Atrial fibrillation with rapid ventricular response: (3) Acute hypokalemia: PLAN: Plan Pneumonia Gram-positive, gram-negative or atypical. Patient meets SIRS criteria with white count of 12,700; tachycardia with heart rate as high as 167; respiratory rate more than 20. No organ dysfunction as lactic acid is not more than 2. Of note his INR was 1.8. Patient is on Xarelto that explains his elevated INR. Legionella antigen ordered returned negative. Strep pneumoniae antigen returned negative. Blood cultures were ordered at the emergency department, follow. Respiratory Gram stain and culture pending Impression of chest x-ray by radiologist:Possible mild diffuse hazy pulmonary edema. Possible atelectasis or infiltrate in the lower left lung with small effusion. Chest x-ray was independently interpreted by hospitalist: Agree with radiology interpretation On baseline oxygen the patient uses at the group home. Started on azithromycin and ceftriaxone at the emergency department and continued. Albuterol as needed Legionella antigen screen and Strep antigen ordered. Trend CBC and BMP A-fib with RVR Potassium of 3.2 on presentation. Received 20 meq of potassium in the emergency department will give additional 40 mEq of potassium. Trend BMP. Magnesium was ordered, returned 1.6. Replace. Review of records: Echocardiogram on 08/03/2022 showed EF of 40%. Last TSH on 04/22/2022 was 4.43. Repeat TSH. Admit to progressive care unit on telemetry. Started on Cardizem drip at emergency department and continued. Amiodarone drip and bolus ordered. Xarelto for A-fib continued. Ischemic cardiomyopathy Stable. Cautious use of fluids. Echocardiogram as above. Continue current guideline directed medical therapy with blood pressure parameters in place. Acute hypokalemia Replacement as above. Trend BMP. DVT prophylaxis: Not indicated as patient is on Xarelto and Xarelto has been continued. Charges/Coding Visit Charges Inpatient E&M: 98476 Init Hosp L3
--- NOTE | 2022-08-03 22:09 | ED.RN ---
called [facility] and gave a nurse update/report and informed them pt was being admitted to PCU #[id number]
[2022-08-03] MEDS: 0.9% Saline Lock 10 ML Syringe IV (23:06)
[2022-08-03 23:23] LABS: Magnesium 1.6 mg/dL (1.6-2.6)
[2022-08-03] MEDS: buPROPion 75 MG Tablet 150 MG PO (23:45)
[2022-08-03] MEDS: Potassium Chloride Oral Tablet 20 MEQ 40 MEQ PO (23:45)
[2022-08-03] MEDS: guaiFENesin 1,200 MG Tablet 1200 MG PO (23:45)
[2022-08-03] MEDS: Atorvastatin Calcium 80 MG Tablet PO (23:45)
[2022-08-03] MEDS: Magnesium Sulfate 4gm/100mL 4 GM/100 ML IV.SOLN. IV (23:45)
[2022-08-03] MEDS: busPIRone 15 MG TABLET PO (23:46)
[2022-08-03] MEDS: azaTHIOprine 50 MG Tablet PO (23:46)
[2022-08-03] MEDS: MELATONIN 10 MG TABLET 5 MG PO (23:47)
[2022-08-04] VITALS (43 sets, daily range): BP systolic 88–168; BP diastolic 53–137; PULSE 84–168; RESP 16–27; TEMP 36.4–36.9; O2SAT 93–99
--- NOTE | 2022-08-04 02:30 | NURSING ---
RN came in room-Patient covered in blood from pulling out IV's. Patient is continuously shaking-patient states this is normal for him-RN having hard time getting accurate BP-tried hailee BP- patient would not stay still long enough to get BP. Will continue to monitor.
[2022-08-04] MEDS: Metoprolol Tartrate 5 MG/5 ML Vial IV ×2 (02:59→04:08)
[2022-08-04] MEDS: 0.9% Saline Lock 10 ML Syringe IV ×2 (02:59→04:08)
[2022-08-04] MEDS: Potassium Chloride 10mEq/100mL 10 MEQ/100 ML IV.SOLN. 100 MEQ IV BOLUS (02:59)
[2022-08-04 04:52] LABS: Bedside Glucose 122 mg/dL (74-106)
[2022-08-04 04:54] LABS: Absolute Lymphocyte Count 0.72 X10^3/uL (0.83-4.51); Absolute Neutrophil Count 12.4 X10^3/uL (2.0-7.7); Basophil# 0.05 X10^3/uL; Basophil% 0.3 % (0-1); Eosinophil# 0.18 X10^3/uL; Eosinophils% 1.3 % (0-5); Hematocrit 27.1 % (40-54); Hemoglobin 8.4 g/dL (13.0-16.5); Lymphocyte # 0.72 X10^3/ul (0.83-4.51); Mean Corpuscular Hgb 26.8 pg (27.0-32.0); Mean Corpuscular Volume 86.6 fL (80-94); Mean Platelet Vol. 8.7 fl (6.2-12.0); Monocyte# 0.87 X10^3/uL; Monocyte% 6.1 % (0-10); NRBC Flagged by Analyzer 0 % (0-5); Neutrophil # 12.39 X10^3/uL (2.7-7.7); Neutrophil % 86.5 % (47-70); Platelet Count 396 K/mm3 (150-450); RBC Distribution Width CV 16.4 % (11.6-14.6); RBC Distribution Width SD 51.2 fl (35.1-43.9); Red Blood Count 3.13 M/mm3 (4.6-6.2); White Blood Count 14.3 K/mm3 (4.4-11.0)
[2022-08-04 05:27] LABS: Anion Gap 5 (5-15); BUN 22 mg/dL (7-18); BUN/Creat Ratio 20.2 RATIO (10-20); Calcium,Total 10.1 mg/dL (8.5-10.1); Chloride 103 mmol/L (98-107); Creatinine, Serum 1.09 mg/dL (0.70-1.30); EST Glomerular Filtration Rate 71 mL/min (>60); Est Glom Filt Rate - Afr Amer 86 mL/min (>60); Estimated Creatinine Clearance 75.41 ml/min; Glucose 131 mg/dL (74-106); Potassium 3.8 mmol/L (3.5-5.1); Sodium Level 135 mmol/L (136-145); Thyroid Stim Hormone (TSH) 3.95 uIU/mL (0.358-3.74)
[2022-08-04] MEDS: buPROPion 75 MG Tablet 150 MG PO (05:31)
[2022-08-04] MEDS: sulfaSALAzine 500 MG Tablet 1000 MG PO (08:21)
[2022-08-04] MEDS: Ferrous Sulfate 325 MG Tablet PO ×2 (08:22→17:40)
[2022-08-04] MEDS: Spironolactone 25 MG Tablet PO (08:22)
[2022-08-04] MEDS: Multivitamins,Ther W-Minerals Tablet 1 TABLET PO (08:23)
[2022-08-04] MEDS: busPIRone 15 MG TABLET PO ×2 (08:24→21:10)
[2022-08-04] MEDS: Citalopram 20 MG Tablet PO (08:25)
[2022-08-04] MEDS: Furosemide 40 MG Tablet PO (08:26)
[2022-08-04] MEDS: guaiFENesin 1,200 MG Tablet 1200 MG PO ×2 (08:26→21:10)
[2022-08-04] MEDS: azaTHIOprine 50 MG Tablet PO ×2 (08:26→21:10)
[2022-08-04] MEDS: Pantoprazole Sodium 20 MG Tablet PO (08:27)
[2022-08-04] MEDS: Metoprolol(XL)Succ 200 MG Tablet PO (08:27)
[2022-08-04] MEDS: Lisinopril 5 MG Tablet PO (08:28)
[2022-08-04] MEDS: Fenofibrate 48 MG Tablet PO (08:28)
[2022-08-04] MEDS: Cholecalciferol (VIT D3) 25 MCG TABLET (1,000 UNITS) 50 MCG PO (08:29)
--- NOTE | 2022-08-04 09:08 | PCM.PN.HOSP ---
Reason for Visit Reason for Visit: Diagnoses Hypokalemia (08/03/22) Unspecified atrial fibrillation (08/03/22) Pneumonia, unspecified organism (08/03/22) Subjective Subjective Follow-up fever and pneumonia. Patient tremulous in bed and reports he has pain in his knees and legs from neuropathy which is chronic and he also shakes diffusely which she said has been going on for a while and sometimes he can suppress it if he tries. Had had some cough leading up to admission with possibly some shortness of breath but primarily reported the weakness. Objective Data Objective Data Vital Signs: Vital Signs Temp Pulse Resp BP Pulse Ox O2 Del Method O2 Flow Rate 97.6 F L 114 H 18 114/63 97 Nasal Cannula 2 08/04/22 08:19 08/04/22 08:27 08/04/22 08:19 08/04/22 08:27 08/04/22 08:19 08/04/22 08:19 08/04/22 08:19 Oxygen Flow Rate (L/min) 2 Oxygen Delivery Method Nasal Cannula Weight: 134.8 kg Body Mass Index (BMI) 38.1 Intake & Output: Intake and Output for Last 24 Hours 08/02/22 08/03/22 08/04/22 23:59 23:59 23:59 Intake Total 2419.67 / 2422.17 721.25 / 721.25 Balance 2419.67 / 2422.17 721.25 / 721.25 Lab / Micro Data Result Diagrams: 08/04/22 04:35 08/04/22 04:35 Labs: Laboratory Results - last 24 hr 08/03/22 19:05: WBC 12.7 H, RBC 3.28 L, Hgb 8.8 L, Hct 28.1 L, MCV 85.7, MCH 26.8 L, MCHC 31.3 L, RDW Std Deviation 50.9 H, RDW Coeff of Trev 16.3 H, Plt Count 402, MPV 8.5, Immature Gran % (Auto) 0.700, Neut % (Auto) 83.8 H, Lymph % (Auto) 6.6 L, [place] % (Auto) 7.0, Eos % (Auto) 1.6, Baso % (Auto) 0.3, Absolute Neuts (auto) 10.6 H, Absolute Lymphs (auto) 0.84, Nucleated RBC % 0 08/03/22 19:05: PT 21.3 H, INR 1.8, APTT 46.4 H 08/03/22 19:05: Sodium 134 L, Potassium 3.2 L, Chloride 98, Carbon Dioxide 28.0, Anion Gap 8, BUN 25 H, Creatinine 1.15, Estim Creat Clear Calc 69.48, Est GFR (MDRD) Af Amer 81, Est GFR (MDRD) Non-Af 67, BUN/Creatinine Ratio 21.7 H, Glucose 104, Calcium 10.2 H, Total Bilirubin 0.50, AST 19, ALT 14 L, Alkaline Phosphatase 79, Total Protein 8.2, Albumin 1.9 L, Globulin 6.3 H, Albumin/Globulin Ratio 0.3 L 08/03/22 19:05: Lactic Acid 1.4 08/03/22 19:05: Magnesium 1.6 08/03/22 20:10: Urine Color Delfina, Urine Clarity Clear, Urine pH 5.0, Ur Specific [place] 1.020, Urine Protein 15 H, Urine Glucose (UA) Normal, Urine Ketones Negative, Urine Occult Blood 50 H, Urine Nitrite Negative, Urine Bilirubin 1 H, Urine Urobilinogen 1 H, Ur Leukocyte Esterase 25 H, Urine RBC 0-5 SEEN, Urine WBC 0-5 SEEN, Ur Squamous Epith Cells 0 SEEN, Urine Bacteria 0 SEEN, Urine Mucus 0 SEEN 08/04/22 04:13: POC Glucose 122 H 08/04/22 04:35: WBC 14.3 H, RBC 3.13 L, Hgb 8.4 L, Hct 27.1 L, MCV 86.6, MCH 26.8 L, MCHC 31.0 L, RDW Std Deviation 51.2 H, RDW Coeff of Trev 16.4 H, Plt Count 396, MPV 8.7, Immature Gran % (Auto) 0.800, Neut % (Auto) 86.5 H, Lymph % (Auto) 5.0 L, [place] % (Auto) 6.1, Eos % (Auto) 1.3, Baso % (Auto) 0.3, Absolute Neuts (auto) 12.4 H, Absolute Lymphs (auto) 0.72 L, Nucleated RBC % 0 08/04/22 04:35: Sodium 135 L, Potassium 3.8, Chloride 103, Carbon Dioxide 27.0, Anion Gap 5, BUN 22 H, Creatinine 1.09, Estim Creat Clear Calc 75.41, Est GFR (MDRD) Af Amer 86, Est GFR (MDRD) Non-Af 71, BUN/Creatinine Ratio 20.2 H, Glucose 131 H, Calcium 10.1, TSH 3.95 H Micro: Microbiology 08/04/22 00:01 Sputum, Expectorated/Coughed Gram Stain - Preliminary 08/03/22 20:10 Urine, Random Legionella Antigen - Final 08/03/22 20:10 Urine, Random Streptococcus pneumoniae Antigen (M - Final 08/03/22 19:00 Nasal Secretion SARS-CoV-2 & FLU Antigen (Rapid) - Final Radiography Diagnostic Testing: Radiology Impression Chest X-Ray 08/03/22 19:16 IMPRESSION: Possible mild diffuse hazy pulmonary edema. Possible atelectasis or infiltrate in the lower left lung with small effusion. Electronically Signed: Dontae Hussein MD at 19:28 EDT , Physical Exam Narrative General: Alert, oriented, appears tremulous HEENT: Atraumatic, normocephalic Eyes: Anicteric, normal conjunctiva, extraocular movements grossly intact, pupils equal round and reactive to light Neck: Supple Respiratory: Difficult to assess due to body habitus, somewhat diminished at the bases,. Slight increased work of breathing Cardiovascular: Irregularly irregular GI: Soft, nontender, nondistended Extremities: Minimal extremity edema Musculoskeletal: Moving all extremities Neuro: No overt focal neurological deficits but had difficulty with participating in exam due to diffuse pain in his joints from what he reports is RA, diffuse tremors and jerking movements noted diffusely Skin: Chronic changes in bilateral lower extremities Psych: Cooperative Assessment & Plan Assessment/Plan (1) Pneumonia: QUALIFIERS: Laterality: left Lung location: lower lobe of lung Pneumonia type: due to unspecified organism Qualified Code(s): J18.9 - Pneumonia, unspecified organism (2) Atrial fibrillation with rapid ventricular response: (3) Acute hypokalemia: PLAN: Plan #hospital-acquired pneumonia -Febrile prior to admission, respiratory rate greater than 20, white blood cell count 12.7. Suspect tachycardia of 167 was secondary to his A-fib with RVR and not infection, at this time do not think he is septic -Chest x-ray possible mild diffuse hazy pulmonary edema and possible atelectasis or infiltrate left lower lung with small effusion -Urine antigens negative -COVID and flu negative -Respiratory Gram stain and culture pending and blood cultures ordered and pending -Was started on albuterol as needed and azithromycin and Rocephin in the ED -Uses baseline O2 -08/04: Initially admitted and treated as CAP however patient still looks unwell and on review he has received IV antibiotics within the past 90 days and has had healthcare exposures, will treat for healthcare acquired pneumonia with vancomycin and Zosyn #Atrial fibrillation with RVR -Seen on EKG -Had echo 04/24/2022 with EF of 40% -TSH 4.43 and free T4 is slightly elevated but given critical illness and only slight abnormalities in both do not think that this is the main culprit and these should be repeated on an outpatient basis -Started on Cardizem drip and Amio -On Xarelto -Is on bupropion 150 3 times daily, unclear reason for IR versus ER however given his A-fib with RVR and hallucinations we will hold bupropion and when restarting may benefit from transition back but XR -Given significant difficulty controlling A-fib also repeat echo -Continue metoprolol and will start Cardizem every 6, communicated with nursing to wean off Cardizem drip now that we are starting p.o. Cardizem, until he is on just p.o. Cardizem and metoprolol we will hold off on adjusting the Amio drip #Diffuse tremors and recent visual hallucinations -Reports that these are all subacute in nature of unclear etiology -We will obtain CT of the head to assess cerebellum -Would benefit from MRI plus or minus EEG however given tremors and inability to sit still do not think these are feasible at this time -If none of this improves with treatment of underlying infection can consider further work-up #Generalized weakness and malaise -pt.ot -Address underlying problem #Rheumatoid arthritis -Continue sulfasalazine and Imuran #Chronic heart failure reduced ejection fraction -EF 40% but with global hypokinesis -Do not think he is septic, will continue Lasix and spironolactone as well as metoprolol lisinopril #Coronary disease status post CABG -Continue statin #CKD stage II -Appears to be at baseline #DVT ppx: On Xarelto Hailey Jaimes MD Time spent in the patient's overall evaluation,decision-making process, review of diagnostic data, adjustment of management, discussion with other providers, nursing nursing and ancillary staff involved in patient's care documentation, 30 minutes Charges/Coding Visit Charges Inpatient E&M: 88431 Subs Hosp L2
[2022-08-04 11:25] LABS: Magnesium 2.4 mg/dL (1.6-2.6); Phosphorus 3.6 mg/dL (2.5-4.9); T4 Free Direct 1.47 ng/dL (0.76-1.46)
[2022-08-04 11:27] LABS: BNP,B-Type NATRIURETIC PEPTIDE 153.6 pg/mL (0-100)
--- NOTE | 2022-08-04 13:57 | ECHOCS_ITS ---
Reason For Study: Dyspnea/SOB Procedure This was a 2D Doppler, Color Flow transthoracic echocardiogram. Contrast injection was performed. The study was technically difficult. Exam performed portable in patient room. Left Ventricle Normal LV size. Mild global left ventricular systolic dysfunction. The estimated ejection fraction is 47 %. There is mild global hypokinesis of the left ventricle. Right Ventricle Mildly dilated right ventricle. Mild global right ventricular systolic dysfunction. Atria The left atrium is mildly enlarged. The right atrium is severely enlarged. Mitral Valve Mild diffuse mitral valve thickening. Mild-Moderate (1-2+) eccentric mitral valve insufficiency. Tricuspid Valve Normal tricuspid valve. Mild (1+) tricuspid valve insufficiency. Pulmonary artery systolic pressure is 30 mmHg. Aortic Valve Trisinus/trileaflet aortic valve. Mild focal aortic valve thickening. Great Vessels Mildly dilated aortic root. The pulmonary artery is normal size. Normal inferior vena cava. Pericardium/Pleural No pericardial effusion. MMode/2D Measurements & Calculations LVIDd: 5.0 cm IVSd: 1.3 cm Ao root diam: 4.0 cm LVIDs: 3.8 cm LVPWd: 1.1 cm RVDd: 5.9 cm FS: 22.5 % LAV(MOD-bp): 75.6 ml LVAd ap4: 34.0 cm2 SV(MOD-sp4): 51.3 ml LAV(MOD-bp) Indexed: 29.4 ml/m2 LVLd ap4: 8.2 cm LAV(MOD-sp2): 68.2 ml EDV(MOD-sp4): 114.2 ml LAV(MOD-sp4): 69.2 ml EDV(sp4-el): 119.0 ml LVAs ap4: 24.5 cm2 LVLs ap4: 7.8 cm ESV(MOD-sp4): 62.9 ml ESV(sp4-el): 65.3 ml EF(MOD-sp4): 44.9 % EF(sp4-el): 45.2 % SV(sp4-el): 53.8 ml LA dimension(2D): 6.2 cm LA A4 area: 24.7 cm2 RA A4 area: 34.5 cm2 Doppler Measurements & Calculations MV E max alessandra: 104.5 cm/sec Ao V2 max: 152.5 cm/sec LV V1 max: 112.3 cm/sec Ao max P.4 mmHg LV V1 max P.1 mmHg Ao V2 mean: 110.9 cm/sec Ao mean P.5 mmHg Ao V2 VTI: 26.4 cm PA V2 max: 105.4 cm/sec TR max alessandra: 253.4 cm/sec TR max P.7 mmHg ECHO/Echo Complete W/ Contrast Interpretation Summary Normal LV size. Mild global left ventricular systolic dysfunction. The estimated ejection fraction is 47 %. Mildly dilated right ventricle. Mild global right ventricular systolic dysfunction. Mild-Moderate (1-2+) eccentric mitral valve insufficiency. Contrast injection was performed. Ordering Physician: Hailey Jaimes Referring Physician: Jj Rogers Performed By: Cady Luke RDCS, RVT
--- NOTE | 2022-08-04 14:02 | CT_ITS ---
HISTORY: diffuse tremors, hallucinations. TECHNIQUE: Multiple axial images were obtained of the head without intravenous contrast. A radiation dose optimization technique was used for this scan. 266 images. COMPARISON: 05/14/2022. FINDINGS: BRAIN PARENCHYMA: Multiple foci and zones of low attenuation in the bilateral cerebral white matter compatible with chronic small vessel ischemic gliosis. No acute intra-axial hemorrhage identified. CSF SPACES: Generalized volume loss. No midline shift or other significant mass effect. No acute extra-axial hemorrhage seen. OTHER: Intact calvarium. No significant air fluid levels in the paranasal sinuses or mastoid air cells. Unremarkable orbits. CT/Brain/Head without Contrast IMPRESSION: No acute intracranial process identified. Chronic involutional and white matter changes. Electronically Signed: Cyndie Grewal MD at 15:46 EDT ,
--- NOTE | 2022-08-04 15:55 | PCM.RX.CS ---
Consult Pharmacy has been consulted to manage selected antiobiotic: Vancomycin Type of Consult: New start Suspected Infection: Pneumonia Labs: Sodium 135 mmol/L (136-145) L 08/04/22 04:35 Potassium 3.8 mmol/L (3.5-5.1) 08/04/22 04:35 Chloride 103 mmol/L (98-107) 08/04/22 04:35 Carbon Dioxide 27.0 mmol/L (21.0-32.0) 08/04/22 04:35 Anion Gap 5 (5-15) 08/04/22 04:35 BUN 22 mg/dL (7-18) H 08/04/22 04:35 Creatinine 1.09 mg/dL (0.70-1.30) 08/04/22 04:35 Est GFR (MDRD) Af Amer 86 mL/min (>60) 08/04/22 04:35 Est GFR (MDRD) Non-Af 71 mL/min (>60) 08/04/22 04:35 BUN/Creatinine Ratio 20.2 RATIO (10-20) H 08/04/22 04:35 Glucose 131 mg/dL (74-106) H 08/04/22 04:35 Microbiology: Microbiology 08/04/22 00:01 Sputum, Expectorated/Coughed Gram Stain - Final 08/03/22 20:10 Urine, Random Legionella Antigen - Final 08/03/22 20:10 Urine, Random Streptococcus pneumoniae Antigen (M - Final 08/03/22 19:00 Nasal Secretion SARS-CoV-2 & FLU Antigen (Rapid) - Final Pharmacy Plan for Drug Dosing: NEW START IV VANCOMYCIN Consulting Physician: DARIUS Indication: PNEUMONIA Goal Trough: 15-20 MG/DL SrCr: 1.09 MG/DL CrCl: 75 ML/MIN Comments: LOADING DOSE OF 2000MG GIVEN 08/04 @ 1536 Vancomycin Dose: WILL START 1750MG Q12 (08/05 @ 0400) AND GET A TROUGH PRIOR TO 4TH TOTAL DOSE OF REGIMEN. Pending Level: 08/06/22 @ 0330 Pharmacy Service will continue to monitor and adjust dosing as required.
[2022-08-04] MEDS: Rivaroxaban 20 MG Tablet PO (17:40)
[2022-08-04] MEDS: dilTIAZem 60 MG Tablet PO (17:41)
[2022-08-04] MEDS: MELATONIN 10 MG TABLET 5 MG PO (21:10)
[2022-08-04] MEDS: Atorvastatin Calcium 80 MG Tablet PO (21:10)
[2022-08-04] MEDS: traMADol 50 MG Tablet PO (21:15)
[2022-08-04] MEDS: Senna/Docusate Sodium 1 Tablet 2 TABLET PO (21:32)
[2022-08-05] VITALS (20 sets, daily range): BP systolic 81–119; BP diastolic 52–86; PULSE 85–113; RESP 16–31; TEMP 36.4–37.2; O2SAT 93–98
[2022-08-05] MEDS: dilTIAZem 60 MG Tablet PO ×3 (00:41→14:01)
[2022-08-05] MEDS: 0.9% Saline Lock 10 ML Syringe IV (04:11)
[2022-08-05] MEDS: Acetaminophen 325 MG Tablet 650 MG PO ×2 (04:25→21:19)
[2022-08-05 06:21] LABS: Absolute Lymphocyte Count 0.59 X10^3/uL (0.83-4.51); Absolute Neutrophil Count 12.6 X10^3/uL (2.0-7.7); Basophil# 0.07 X10^3/uL; Basophil% 0.5 % (0-1); Eosinophil# 0.28 X10^3/uL; Eosinophils% 1.9 % (0-5); Hematocrit 28.6 % (40-54); Hemoglobin 8.9 g/dL (13.0-16.5); Lymphocyte # 0.59 X10^3/ul (0.83-4.51); Lymphocyte % 4.1 % (19-41); Mean Corp Hgb Conc 31.1 g/dL (32-36); Mean Corpuscular Hgb 26.5 pg (27.0-32.0); Mean Corpuscular Volume 85.1 fL (80-94); Mean Platelet Vol. 8.9 fl (6.2-12.0); Monocyte# 0.81 X10^3/uL; Monocyte% 5.6 % (0-10); NRBC Flagged by Analyzer 0 % (0-5); Neutrophil # 12.64 X10^3/uL (2.7-7.7); Neutrophil % 87.1 % (47-70); POSITIVE DIFFERENTIAL YES; Platelet Count 403 K/mm3 (150-450); RBC Distribution Width CV 16.3 % (11.6-14.6); RBC Distribution Width SD 50.6 fl (35.1-43.9); Red Blood Count 3.36 M/mm3 (4.6-6.2); White Blood Count 14.5 K/mm3 (4.4-11.0)
[2022-08-05 06:25] LABS: Differential Indicated SCAN CRITERIA MET
[2022-08-05 06:48] LABS: Anisocytosis 1+
[2022-08-05 06:49] LABS: ALB/GLOB Ratio 0.3 RATIO (0.9-2.4); AST(SGOT) 20 U/L (15-37); Alanine Aminotransfer ALT/SGPT 9 U/L (16-61); Albumin, Serum 1.7 g/dL (3.2-5.0); Alkaline Phosphatase 72 U/L (45-117); Anion Gap 7 (5-15); BUN 30 mg/dL (7-18); BUN/Creat Ratio 21.4 RATIO (10-20); Calcium,Total 10.4 mg/dL (8.5-10.1); Chloride 101 mmol/L (98-107); EST Glomerular Filtration Rate 53 mL/min (>60); Est Glom Filt Rate - Afr Amer 65 mL/min (>60); Estimated Creatinine Clearance 58.71 ml/min; Globulin 5.9 g/dL (2.2-4.2); Glucose 107 mg/dL (74-106); Potassium 3.9 mmol/L (3.5-5.1); Protein, Total 7.6 g/dL (6.4-8.2); Sodium Level 132 mmol/L (136-145)
--- NOTE | 2022-08-05 07:43 | PCM.PN.HOSP ---
Reason for Visit Reason for Visit: Diagnoses Hypokalemia (08/03/22) Unspecified atrial fibrillation (08/03/22) Pneumonia, unspecified organism (08/03/22) Subjective Subjective Patient overnight with ability to transition off Cardizem drip to oral regimen however remains on amiodarone drip with heart rate vacillating from 90s to 110s. Patient notes still some mild dyspnea sensation but de-escalated down to 2 L nasal cannula and occasional cough but only able to bring up occasional white sputum. He denies any recent fevers or chills. He does report feeling significantly fatigued and weak. He still has notable diffuse upper and lower extremity tremors and is cognizant when these occur. Discussed plan of care including MRI of the brain with no acute findings and EEG which was technically limited and nonspecific irregularities noted but no obvious seizure activity. Patient also had echocardiogram obtained with no marked dysfunction noted. Given patient seeming improvement of heart rate although remained in atrial fibrillation with Cardizem in the a.m. attempted to increase Cardizem and de-escalate off of the amiodarone drip however this was unsuccessful as patient with low soft BP and heart rate still remains 90s to 110s, reviewed with cardiology, not formally consulted as patient not significantly in RVR and decision for transition from short acting Cardizem to long-acting with overlapping short course of oral amiodarone. Patient denies fevers, chills, nausea, emesis, abdominal pain, chest pain or dyspnea. Objective Data Objective Data Vital Signs: Vital Signs Temp Pulse Resp BP Pulse Ox O2 Del Method O2 Flow Rate 98.9 F 94 20 H 103/86 H 95 Nasal Cannula 2 08/05/22 03:00 08/05/22 05:00 08/05/22 05:00 08/05/22 05:00 08/05/22 05:00 08/05/22 03:00 08/05/22 03:00 Oxygen Flow Rate (L/min) 2 Oxygen Delivery Method Nasal Cannula Weight: 297 lb 2.93 oz Body Mass Index (BMI) 38.1 Intake & Output: Intake and Output for Last 24 Hours 08/03/22 08/04/22 08/05/22 23:59 23:59 23:59 Intake Total 2419.67 / 2422.17 1884.60 / 2051.30 1214.10 / 1214.10 Balance 2419.67 / 2422.17 1884.60 / 2051.30 1214.10 / 1214.10 Lab / Micro Data Result Diagrams: 08/05/22 06:13 08/05/22 06:13 Labs: Laboratory Results - last 24 hr 08/04/22 04:35: Phosphorus 3.6, Magnesium 2.4, Free T4 1.47 H 08/04/22 04:35: B-Natriuretic Peptide Cancelled, PTH Intact Cancelled 08/04/22 04:35: B-Natriuretic Peptide 153.6 H 08/05/22 06:13: WBC 14.5 H, RBC 3.36 L, Hgb 8.9 L, Hct 28.6 L, MCV 85.1, MCH 26.5 L, MCHC 31.1 L, RDW Std Deviation 50.6 H, RDW Coeff of Trev 16.3 H, Plt Count 403, MPV 8.9, Immature Gran % (Auto) 0.800, Neut % (Auto) 87.1 H, Lymph % (Auto) 4.1 L, Mchenry % (Auto) 5.6, Eos % (Auto) 1.9, Baso % (Auto) 0.5, Absolute Neuts (auto) 12.6 H, Absolute Lymphs (auto) 0.59 L, Nucleated RBC % 0, Anisocytosis 1+ 08/05/22 06:13: Sodium 132 L, Potassium 3.9, Chloride 101, Carbon Dioxide 24.0, Anion Gap 7, BUN 30 H, Creatinine 1.40 H, Estim Creat Clear Calc 58.71, Est GFR (MDRD) Af Amer 65, Est GFR (MDRD) Non-Af 53 L, BUN/Creatinine Ratio 21.4 H, Glucose 107 H, Calcium 10.4 H, Total Bilirubin 0.40, AST 20, ALT 9 L, Alkaline Phosphatase 72, Total Protein 7.6, Albumin 1.7 L, Globulin 5.9 H, Albumin/Globulin Ratio 0.3 L Micro: Microbiology 08/03/22 20:10 Urine, Clean Catch Urine Culture - Preliminary Culture exhibits no growth. 08/04/22 00:01 Sputum, Expectorated/Coughed Gram Stain - Final 08/03/22 20:10 Urine, Random Legionella Antigen - Final 08/03/22 20:10 Urine, Random Streptococcus pneumoniae Antigen (M - Final 08/03/22 19:00 Nasal Secretion SARS-CoV-2 & FLU Antigen (Rapid) - Final Radiography Diagnostic Testing: Radiology Impression Brain CT 08/04/22 14:02 IMPRESSION: No acute intracranial process identified. Chronic involutional and white matter changes. Electronically Signed: Cyndie Grewal MD at 15:46 EDT , Physical Exam Narrative Physical Examination: General: Awake, alert, oriented x 3 and cooperative, seated upright in the ED bed, fatigued, mildly anxious Skin: Normal color, normal turgor, no icterus, no cyanosis except for significant bilateral lower extremity venous stasis skin changes, occasional ecchymoses. HEENT: AT/NC, EOMI, PERRLA, mildly dry MM, thickened neck. Lungs: Significantly diminished, greater bases, mildly increased respiratory rate but no distress, no rales, ronchi or wheezing. Heart: Improved rate, still irregular; no gallop, rub audible, no marked murmurs appreciated. Abdomen: Soft, morbidly obese, NTTP, difficult to assess distention and HSM given habitus, distant bowel sounds. extremities: No cyanosis, no clubbing, no marked pitting peripheral edema, significant bilateral lower extremity venous stasis skin changes as noted. Neurological: Patient awake, alert, oriented as noted, cognitive function intact; pupils equally reactive to light and accommodation, cranial nerves II-XII grossly normal, moving all 4 extremities, no focal deficits, strength moderately to severely globally decreased secondary to acute presentation, persistent diffuse intermittent tremors and jerking movements in both upper and lower extremities with some ability to suppress. Psychiatric: Affect appears fatigued, no acute evidence of depressive feelings but intermittently appears anxious with discussions, request that his niece be contacted as he does not understand everything medically he notes. Assessment & Plan Assessment/Plan (1) Pneumonia: QUALIFIERS: Pneumonia type: due to unspecified organism Laterality: left Lung location: lower lobe of lung Qualified Code(s): J18.9 - Pneumonia, unspecified organism PLAN: Plan The patient is a 66 y/o M w/ PMHx: CKD stage II, Morbid Obesity, ALEJANDRA unable to tolerate PAP therapy, CAD s/p CABG and PCI, Former tobacco use, PAF, Anxiety and Depression, Graves disease, Chronic Systolic CHF, HTN, HLD, GERD w/ Hx GI bleed/gastric ulcers, Rheumatoid arthritis, Hx bowel perforation s/p partial colectomy who presents to the [facility] ED on 08/03/22 with history of onset fevers 10 1-1 02 as well as rigors, increased fatigue anorexia as well as potentially loose stools although reportedly last had been day prior to evaluation with concurrent increased confusion and hallucinations prompting skilled facility to transition the patient to ED for evaluation. #1. Acute Encephalopathy, Suspected Infectious, possibly multifactorial secondary to Acute Pneumonia, possibly GN/GP Organisms in the setting of immunosuppressive status with Chronic Hypoxic Respiratory Failure (2L NC baseline): Chest x-ray is noted with possible hazy pulmonary edema versus atelectasis versus infiltrate left lower lung with a small effusion, COVID-negative, influenza antigen negative, urine antigens negative, 1 of 2 blood cultures currently with no growth noted preliminarily, currently still awaiting sputum culture however prelim is Staphylococcus aureus, initially treated with IV azithromycin and Rocephin which had been started in the ED however given concerns 08/04/2022 patient transition to broaden antibiotic therapy including vancomycin, cefepime and zosyn; however, MRSA screen requested and negative; but given preliminary sputum with Staphylococcus aureus will continue IV vancomycin but de-escalate pending sensitivities. Will encourage continued aggressive I-S, head of bed, continue supplemental oxygen with wean as tolerated to 2 L nasal cannula chronic usage, maintain on fall and aspiration precaution, PT/OT/case management consultation for discharge planning back to skilled facility. #2. Paroxsymal atrial fibrillation w/ RVR: Patient with atrial fibrillation with RVR, likely secondary to acute presentation #1, TSH mildly elevated, free T4 also slightly elevated; however, given acute presentation with critical illness would benefit from a repeat thyroid function studies outpatient once #1 resolved but if persists would need further work-up/evaluation, mag normal level, initially had been on oral metoprolol home dose and started also on oral Cardizem with overlapping Cardizem drip as well as IV amiodarone drip, 08/05/22 Echo with normal LV size, mild global LV systolic dysfunction, EF 47%, mildly dilated RV, mild global RV systolic dysfunction, mild to moderate MVI with contrast injection performed. 08/05/2022 initially attempted to increase short acting oral Cardizem and transition off IV amiodarone however resulted in low soft BP. Will instead change to cardizem 120 mg longacting BID from short acting as can have occasional rebound tachycardia associated and more effect on pressure, will also overlap with amiodarone oral regimen x 3 doses and re-evaluate. Continued on home Xarelto regimen. #3. Atypical intermittent diffuse extremity tremors/spasms, unclear etiology: 08/05/22 EEG obtained with mild generalized background slowing although technically limited with mild irregularities of cerebral function possibly reflective of toxic, metabolic, neurodegenerative, inflammatory, infectious or structural abnormalities per neurology read with no definitive seizures noted either focal, lateralized or elective form abnormalities. 08/05/22 MRI of the brain with no significant interval change compared to CT head 08/04/2022, no acute intracranial findings. Will request Neurology consultation. #4. Acute on Chronic Normocytic anemia/Fe deficiency anemia, unclear etiology for decrease: Admission hemoglobin 8.8, trended down 08/04/2022 hemoglobin 8.4, repeat 08/05/2022 hemoglobin 8.9, will continue iron supplementation, iron panel, ferritin, vitamin B12 and folic acid levels are pending, guaiac requested specially given chronic anticoagulation. Will repeat CBC in AM. #5. Chronic systolic CHF: 08/05/22 Echo with normal LV size, mild global LV systolic dysfunction, EF 47%, mildly dilated RV, mild global RV systolic dysfunction, mild to moderate MVI with contrast injection performed, will continue patient home Xarelto, metoprolol, statin, lisinopril, spironolactone, Lasix home regimen. Judiciously hydrate if necessary. #6. Graves' disease: Patient with noted history, unclear specific interventions previously, current admission with TSH 3.95, free T4 1.47 But again patient is critically ill with acute presentation as noted above thus will continue treatment and especially given #2 we will need repeat follow-up thyroid function studies once the acute phase has resolved to assure there is no further evaluation work-up necessary. #7. Chronic Kidney Disease Stage II: Admission BUN/Cr 25/1.15, baseline renal function appears primarily 1.0-1.2 but has vacillated admit down to 0.8 and up to 1.80 on 05/14/2022, 08/05/2022 BUN/creatinine 30/1.40, will continue to closely trend #8. Rheumatoid arthritis: We will continue patient home chronic sulfasalazine and Imuran regimen #1, antibiotic therapy as noted #1 broadened given this history. #9. Anxiety and depression: We will continue patient home citalopram and buspar. Of note bupropion had been transiently held secondary to concerns of continuation well hallucinating, given improvement we will restart this regimen but per prior recommendation change to #10. Hypertension: Continue home regimen including metoprolol, lisinopril, spironolactone, Lasix, as noted altering Cardizem from short acting to long-acting, PRN hydralazine. #11. Hyperlipidemia: We will continue patient on statin and fenofibrate therapy. #12. GERD with history of previous GI bleed, gastric ulcers: We will continue patient home PPI. #13. CAD: Status post PCI and CABG, will continue patient home Xarelto, statin, metoprolol, lisinopril home regimen. #14. ALEJANDRA: Unable to tolerate CPAP/BiPAP therapy, encourage continued outpatient reassessments given new devices available. #15. Former tobacco use: Encourage continued tobacco cessation. #16. DVT prophylaxis: Continue patient home Xarelto regimen. #17. Code Status: Full Code. Admission Evaluation Time spent evaluating chart, patient history, patient evaluation, care planning and discussion with specialists: 55 minutes. Charges/Coding Visit Charges Inpatient E&M: 22615 [facility] L3
--- NOTE | 2022-08-05 07:45 | MRI_ITS ---
EXAM: MR HEAD WITHOUT INTRAVENOUS CONTRAST CLINICAL INDICATION: Encephalopathy, tremors TECHNIQUE: Multiplanar and multisequence MR images of the brain were obtained without intravenous contrast. COMPARISON: CT head without contrast 08/04/2022. FINDINGS: BRAIN AND EXTRA-AXIAL SPACES: Unremarkable. No intra- or extra-axial hemorrhage. Posterior fossa structures are unremarkable. Ventricles are appropriate for age. No hydrocephalus. Basal cisterns are patent. No diffusion restriction to suspect acute or subacute ischemic infarct. No focal signal abnormalities throughout the brain parenchyma. No midline shift and no mass effects. SELLA: Unremarkable. Normal sella turcica, pituitary gland, infundibular stalk, optic chiasm and hypothalamus. AUDITORY SYSTEM: Unremarkable. The internal auditory canals are patent. BONES/JOINTS: Unremarkable. No discrete lytic or blastic abnormalities. SINUSES: Unremarkable as visualized. Clear. MASTOID AIR CELLS: Unremarkable as visualized. Clear. ORBITS: Unremarkable as visualized. Both globes, extraocular muscles, optic nerves and retrobulbar fat appear unremarkable. VASCULATURE: Unremarkable as visualized. Normal flow voids in the major intracranial circulation. MRI/Brain without Contrast IMPRESSION: 1. Negative MRI brain without intravenous contrast. 2. No significant interval change when compared to CT head scan without contrast 08/04/2022. Electronically Signed: Vipul Christiansen MD at 13:58 EDT ,
[2022-08-05] MEDS: Metoprolol(XL)Succ 200 MG Tablet PO (08:05)
[2022-08-05] MEDS: Cholecalciferol (VIT D3) 25 MCG TABLET (1,000 UNITS) 50 MCG PO (08:05)
[2022-08-05] MEDS: Lisinopril 5 MG Tablet PO (08:05)
[2022-08-05] MEDS: Furosemide 40 MG Tablet PO (08:06)
[2022-08-05] MEDS: Fenofibrate 48 MG Tablet PO (08:06)
[2022-08-05] MEDS: Pantoprazole Sodium 20 MG Tablet PO (08:06)
[2022-08-05] MEDS: guaiFENesin 1,200 MG Tablet 1200 MG PO ×2 (08:06→21:14)
[2022-08-05] MEDS: sulfaSALAzine 500 MG Tablet 1000 MG PO (08:06)
[2022-08-05] MEDS: Citalopram 20 MG Tablet PO (08:06)
[2022-08-05] MEDS: busPIRone 15 MG TABLET PO ×2 (08:07→21:13)
[2022-08-05] MEDS: Spironolactone 25 MG Tablet PO (08:07)
[2022-08-05] MEDS: Multivitamins,Ther W-Minerals Tablet 1 TABLET PO (08:07)
[2022-08-05] MEDS: azaTHIOprine 50 MG Tablet PO ×2 (08:07→21:13)
[2022-08-05] MEDS: Ferrous Sulfate 325 MG Tablet PO ×2 (08:07→16:45)
[2022-08-05] MEDS: traMADol 50 MG Tablet PO (08:29)
[2022-08-05 11:16] LABS: M R Staph aureus DNA By PCR Negative (Negative); Probe Check PASS; Specimen Processing Control PASS
[2022-08-05 16:44] LABS: Ferritin 1601 ng/mL (26-388); Iron 19 ug/dL (65-175); Iron Binding Capacity,Total 220 ug/dL (250-450); PERCENT IRON SATURATION 8.6 % (15.0-55.0)
[2022-08-05] MEDS: Rivaroxaban 20 MG Tablet PO (16:45)
[2022-08-05] MEDS: Amiodarone 200 MG Tablet 100 MG PO ×2 (17:02→21:20)
--- NOTE | 2022-08-05 21:06 | NURSING ---
soc consult completed
--- NOTE | 2022-08-05 21:08 | CT_ITS ---
INDICATION: evaluation cord compression EXAMINATION: CT CERVICAL SPINE - CT Spine Cervical W/O Contrast Injection TECHNIQUE: Helically acquired images were obtained of the cervical spine. 2D reformatted images were reviewed. A radiation dose optimization technique was used for this scan. IV Contrast dosage and agent: None. RADIATION DOSAGE (If Supplied By Facility): CTDIvol = ( 31.08 ) mGy, DLP = ( 750.95 ) mGycm COMPARISON: None FINDINGS: Evaluation limited due to motion. ALIGNMENT: Normal. VERTEBRAL BODIES: No fracture or acute abnormality. DISC SPACES: Multilevel degenerative changes throughout the visualized spine with intervertebral disc space narrowing, disc osteophyte complex formation and uncovertebral facet hypertrophy contributing to moderate to severe spinal canal and neuroforaminal narrowing, worst between C4-C7. POSTERIOR ELEMENTS: Normal. PARASPINAL SOFT TISSUES: Normal. LUNG APICES: Visualized portions normal. OTHER: Mildly enlarged cervical lymph nodes.. CT/Spine Cervical without Contras IMPRESSION: 1. Evaluation limited due to motion. 2. Multilevel moderate to severe degenerative changes, can be further characterized with MRI cervical spine to evaluate for cord compression. 3. Mildly enlarged cervical lymph nodes. Electronically Signed: Tiburcio Carolina MD at 22:40 EDT ,
--- NOTE | 2022-08-05 21:08 | CT_ITS ---
INDICATION: cord compression evaluation EXAMINATION: CT THORACIC SPINE - CT Spine Thoracic W/O Contrast Injection TECHNIQUE: Helically acquired images were obtained of the thoracic spine. 2D reformats were reviewed. A radiation dose optimization technique was used for this scan. IV Contrast dosage and agent: None. RADIATION DOSAGE (If Supplied By Facility): CTDIvol = ( 71.14 ) mGy, DLP = ( 2849.03 ) mGycm COMPARISON: None FINDINGS: ALIGNMENT: Normal. MINERALIZATION: Normal. VERTEBRA BODIES: Normal. DISC SPACES: Multilevel degenerative changes throughout the visualized spine with intervertebral disc space narrowing and disc osteophyte complex formation contributing to mild spinal canal and mild to moderate neural foraminal narrowing worst in the mid thoracic spine.. POSTERIOR ELEMENTS: Normal. SPINAL CORD: Normal. SPINAL CANAL: No evidence of spinal stenosis. PARASPINAL TISSUES: Normal. OTHER: Small pleural effusions. Mildly enlarged mediastinal and hilar lymph nodes. CT/Spine Thoracic without Contras IMPRESSION: 1. No acute fracture or subluxation. 2. Multilevel degenerative changes with mild to moderate spinal canal and neuroforaminal narrowing. Cord compression can be further characterized with MRI of the thoracic spine. 3. Nonspecific mildly enlarged intrathoracic lymphadenopathy. 4. Small pleural effusions. Electronically Signed: Tiburcio Carolina MD at 22:46 EDT ,
[2022-08-05] MEDS: dilTIAZem CD 120 MG Capsule PO (21:11)
[2022-08-05] MEDS: Atorvastatin Calcium 80 MG Tablet PO (21:13)
[2022-08-05] MEDS: MELATONIN 10 MG TABLET 5 MG PO (21:14)
--- NOTE | 2022-08-05 21:16 | PN.HOSP_ITS ---
Hospitalist Note Contacted to private phone by neurology who recommended CT cervical spine and thoracic spine as well as more aggressive evaluation of hypercalcemia which could be contributing. Will obtain imaging studies requested as well as vitamin D level, PTH, recent thyroid assessment as noted already performed. Will judiciously hydrate overnight. Recommendation for de-escalation off of cefepime as able with currently Staph aureus noted on preliminary respiratory culture growth therefore we will de-escalate off these antibiotics as able as this is fe lt possibly contributing to also encephalopathy.
[2022-08-05] MEDS: Nystatin Powder 15gm Bottle 1 APPLIC TOPICAL (21:19)
[2022-08-05] MEDS: Menthol/Lanolin/Calamine/Znox 113 GM Tube 1 APPLIC TOPICAL (21:19)
[2022-08-05] MEDS: 0.9% Normal Saline 1,000 ML 100 ML IV (21:21)
[2022-08-05 22:30] LABS: Ammonia < 10.0 umol/L (11-32)
[2022-08-06] VITALS (8 sets, daily range): BP systolic 94–123; BP diastolic 66–76; PULSE 93–107; RESP 18–27; TEMP 36.3–36.8; O2SAT 89–96
[2022-08-06 04:04] LABS: Absolute Lymphocyte Count 0.56 X10^3/uL (0.83-4.51); Absolute Neutrophil Count 12.9 X10^3/uL (2.0-7.7); Basophil# 0.06 X10^3/uL; Basophil% 0.4 % (0-1); Eosinophil# 0.35 X10^3/uL; Eosinophils% 2.4 % (0-5); Hematocrit 26.5 % (40-54); Hemoglobin 8.4 g/dL (13.0-16.5); Lymphocyte # 0.56 X10^3/ul (0.83-4.51); Lymphocyte % 3.8 % (19-41); Mean Corp Hgb Conc 31.7 g/dL (32-36); Mean Corpuscular Hgb 27.9 pg (27.0-32.0); Mean Platelet Vol. 8.9 fl (6.2-12.0); Monocyte# 0.77 X10^3/uL; Monocyte% 5.2 % (0-10); NRBC Flagged by Analyzer 0 % (0-5); Neutrophil # 12.86 X10^3/uL (2.7-7.7); Neutrophil % 87.5 % (47-70); POSITIVE DIFFERENTIAL YES; Platelet Count 397 K/mm3 (150-450); RBC Distribution Width CV 16.5 % (11.6-14.6); RBC Distribution Width SD 53.7 fl (35.1-43.9); Red Blood Count 3.01 M/mm3 (4.6-6.2); White Blood Count 14.7 K/mm3 (4.4-11.0)
[2022-08-06 04:15] LABS: Differential Indicated SCAN CRITERIA MET
[2022-08-06 04:42] LABS: ALB/GLOB Ratio 0.3 RATIO (0.9-2.4); AST(SGOT) 28 U/L (15-37); Alanine Aminotransfer ALT/SGPT 11 U/L (16-61); Albumin, Serum 1.7 g/dL (3.2-5.0); Alkaline Phosphatase 71 U/L (45-117); Anion Gap 8 (5-15); BUN 33 mg/dL (7-18); BUN/Creat Ratio 26.4 RATIO (10-20); Calcium,Total 10.3 mg/dL (8.5-10.1); Chloride 103 mmol/L (98-107); Creatinine, Serum 1.25 mg/dL (0.70-1.30); EST Glomerular Filtration Rate 61 mL/min (>60); Est Glom Filt Rate - Afr Amer 74 mL/min (>60); Estimated Creatinine Clearance 65.76 ml/min; Globulin 5.8 g/dL (2.2-4.2); Glucose 98 mg/dL (74-106); Potassium 4.1 mmol/L (3.5-5.1); Protein, Total 7.5 g/dL (6.4-8.2); Sodium Level 135 mmol/L (136-145); Vancomycin, Trough Level 23.8 ug/mL (5.0-15.0)
--- NOTE | 2022-08-06 04:53 | PCM.RX.CS ---
Consult Pharmacy has been consulted to manage selected antiobiotic: Vancomycin Type of Consult: Follow-up Suspected Infection: Pneumonia Prior Doses of Antibiotics Received/Current Regimen: Medications Discontinued Medications Vancomycin HCl 1,750 mg/ (Sodium Chloride) 535 mls @ 250 mls/hr IV Q12H ALINA Last Admin: 08/06/22 04:10 Dose: 250 mls/hr Labs: Sodium 135 mmol/L (136-145) L 08/06/22 03:50 Potassium 4.1 mmol/L (3.5-5.1) 08/06/22 03:50 Chloride 103 mmol/L (98-107) 08/06/22 03:50 Carbon Dioxide 24.0 mmol/L (21.0-32.0) 08/06/22 03:50 Anion Gap 8 (5-15) 08/06/22 03:50 BUN 33 mg/dL (7-18) H 08/06/22 03:50 Creatinine 1.25 mg/dL (0.70-1.30) 08/06/22 03:50 Est GFR (MDRD) Af Amer 74 mL/min (>60) 08/06/22 03:50 Est GFR (MDRD) Non-Af 61 mL/min (>60) 08/06/22 03:50 BUN/Creatinine Ratio 26.4 RATIO (10-20) H 08/06/22 03:50 Glucose 98 mg/dL (74-106) 08/06/22 03:50 Vancomycin Trough 23.8 ug/mL (5.0-15.0) H 08/06/22 03:50 Microbiology: Microbiology 08/04/22 00:01 Sputum, Expectorated/Coughed Gram Stain - Final 08/04/22 00:01 Sputum, Expectorated/Coughed Respiratory Culture - Preliminary Staphylococcus aureus 08/03/22 20:10 Urine, Clean Catch Urine Culture - Preliminary Culture exhibits no growth. 08/03/22 20:10 Urine, Random Legionella Antigen - Final 08/03/22 20:10 Urine, Random Streptococcus pneumoniae Antigen (M - Final 08/03/22 19:00 Nasal Secretion SARS-CoV-2 & FLU Antigen (Rapid) - Final Weight used for dosin.8 kg Estimated Creatinine Clearance: 82.6 Goal Trough: 15-20 mcg/mL Pharmacy Plan for Drug Dosing: Vancomycin trough level, drawn 11 hours post-dose, was high at 23.8. The currently hanging bag will be stopped. Another level will be drawn in 12 hours to determine further dosing adjustments. Pharmacy Service will continue to monitor and adjust dosing as required. Follow-Up Labs: Trough Vancomycin - random Labs to be done on [date and time ordered]: 08/06/22 @1600
[2022-08-06 05:09] LABS: Differential Comment SCANNED
--- NOTE | 2022-08-06 06:33 | PN.HOSP_ITS ---
Reason for Visit Reason for Visit: Diagnoses Hypokalemia (08/03/22) Unspecified atrial fibrillation (08/03/22) Pneumonia, unspecified organism (08/03/22) Subjective Subjective Patient overnight with neurology evaluation as noted previously with re commendation for CT cervical spine and thoracic spine as well as more aggressive evaluation of hypercalcemia which could be contributing.? Imaging studies obtained with CT cervical spine with evaluation limited due to motion with multilevel moderate to severe degenerative changes, mildly enlarged cervical lymph nodes. CT thoracic spine obtained with no acute fracture or subluxation however there is multilevel degenerative changes with mild to moderate spinal canal and neuroforaminal narrowing with recommendation for further MRI to evaluate for any cord compression, nonspecific mildly enlarged intrathoracic lymphadenopathy with small pleural effusions. MRI of the thoracic and lumbar spine ordered and pending. Discussed case with CT imaging with Dr. Laureano given concerns and he recommended also addition of MRI cervical spine which was added. Also, per Neurology recommendation requested vitamin D level, PTH which are pending. Patient with sputum Cx resulting with MRSA with abx de-escalation only IV Vancomycin. Cefepime certainly could be contributing to his hallucations thus this was another recommendaiton from Neurologist. Patient overnight with continued hallucinations. Currently upon discussion with patient he denies fevers, chills, nausea, emesis, abdominal pain, chest pain. Admits to still having some dyspnea. He appears less confused and gives correct month, year, president but believes that he is at the bank. Objective Data Objective Data Vital Signs: Vital Signs Temp Pulse Resp BP Pulse Ox O2 Del Method O2 Flow Rate 97.8 F 93 18 123/72 H 96 Nasal Cannula 2 08/06/22 04:18 08/06/22 04:18 08/06/22 04:18 08/06/22 04:18 08/06/22 04:18 08/06/22 04:18 08/06/22 04:18 Oxygen Flow Rate (L/min) 2 Oxygen Delivery Method Nasal Cannula Weight: 297 lb 2.93 oz Body Mass Index (BMI) 38.1 Intake & Output: Intake and Output for Last 24 Hours 08/04/22 08/05/22 08/06/22 23:59 23:59 23:59 Intake Total 1884.60 / 2051.30 3182.93 / 3182.93 775 / 775 Output Total 300 / 300 Balance 1884.60 / 2051.30 2882.93 / 2882.93 775 / 775 Lab / Micro Data Result Diagrams: 08/06/22 03:50 08/06/22 03:50 Labs: Laboratory Results - last 24 hr 08/05/22 06:13: Anisocytosis 1+ 08/05/22 06:13: Sodium 132 L, Potassium 3.9, Chloride 101, Carbon Dioxide 24.0, Anion Gap 7, BUN 30 H, Creatinine 1.40 H, Estim Creat Clear Calc 58.71, Est GFR (MDRD) Af Amer 65, Est GFR (MDRD) Non-Af 53 L, BUN/Creatinine Ratio 21.4 H, Glucose 107 H, Calcium 10.4 H, Total Bilirubin 0.40, AST 20, ALT 9 L, Alkaline Phosphatase 72, Total Protein 7.6, Albumin 1.7 L, Globulin 5.9 H, Albumin/Globulin Ratio 0.3 L 08/05/22 06:13: Iron 19 L, TIBC 220 L, Iron Saturation 8.6 L, Ferritin 1601 H, Folate 3.80 08/05/22 08:46: MRSA (PCR) Negative 08/05/22 21:45: Ammonia < 10.0 L 08/06/22 03:50: WBC 14.7 H, RBC 3.01 L, Hgb 8.4 L, Hct 26.5 L, MCV 88.0, MCH 27.9, MCHC 31.7 L, RDW Std Deviation 53.7 H, RDW Coeff of Trev 16.5 H, Plt Count 397, MPV 8.9, Immature Gran % (Auto) 0.700, Neut % (Auto) 87.5 H, Lymph % (Auto) 3.8 L, [place] % (Auto) 5.2, Eos % (Auto) 2.4, Baso % (Auto) 0.4, Absolute Neuts (auto) 12.9 H, Absolute Lymphs (auto) 0.56 L, Nucleated RBC % 0, Differential Comment SCANNED 08/06/22 03:50: Sodium 135 L, Potassium 4.1, Chloride 103, Carbon Dioxide 24.0, Anion Gap 8, BUN 33 H, Creatinine 1.25, Estim Creat Clear Calc 65.76, Est GFR (MDRD) Af Amer 74, Est GFR (MDRD) Non-Af 61, BUN/Creatinine Ratio 26.4 H, Glucose 98, Calcium 10.3 H, Total Bilirubin 0.50, AST 28, ALT 11 L, Alkaline Phosphatase 71, Total Protein 7.5, Albumin 1.7 L, Globulin 5.8 H, Albumin/ Globulin Ratio 0.3 L 08/06/22 03:50: Vancomycin Trough 23.8 H Micro: Microbiology 08/04/22 00:01 Sputum, Expectorated/Coughed Gram Stain - Final 08/04/22 00:01 Sputum, Expectorated/Coughed Respiratory Culture - Preliminary Staphylococcus aureus 08/03/22 20:10 Urine, Clean Catch Urine Culture - Preliminary Culture exhibits no growth. 08/03/22 20:10 Urine, Random Legionella Antigen - Final 08/03/22 20:10 Urine, Random Streptococcus pneumoniae Antigen (M - Final 08/03/22 19:00 Nasal Secretion SARS-CoV-2 & FLU Antigen (Rapid) - Final Radiography Diagnostic Testing: Radiology Impression Echocardiogram 08/04/22 13:57 Interpretation Summary Normal LV size. Mild global left ventricular systolic dysfunction. The estimated ejection fraction is 47 %. Mildly dilated right ventricle. Mild global right ventricular systolic dysfunction. Mild-Moderate (1-2+) eccentric mitral valve insufficiency. Contrast injection was performed. Ordering Physician: Hailey Jaimes Referring Physician: Jj Rogers Performed By: Cady Luke, RDCS, RVT Brain MRI 08/05/22 07:45 IMPRESSION: 1. Negative MRI brain without intravenous contrast. 2. No significant interval change when compared to CT head scan without contrast 08/04/2022. Electronically Signed: Vipul Christiansen MD at 13:58 EDT , Cervical Spine CT 08/05/22 21:08 IMPRESSION: 1. Evaluation limited due to motion. 2. Multilevel moderate to severe degenerative changes, can be further characterized with MRI cervical spine to evaluate for cord compression. 3. Mildly enlarged cervical lymph nodes. Electronically Signed: Tiburcio Carolina MD at 22:40 EDT , Thoracic Spine CT 08/05/22 21:08 IMPRESSION: 1. No acute fracture or subluxation. 2. Multilevel degenerative changes with mild to moderate spinal canal and neuroforaminal narrowing. Cord compression can be further characterized with MRI of the thoracic spine. 3. Nonspecific mildly enlarged intrathoracic lymphadenopathy. 4. Small pleural effusions. Electronically Signed: Tiburcio Carolina MD at 22:46 EDT , Physical Exam Narrative Physical Examination: General: Awake, alert, oriented to self, month, year, president however he believes he is in the bank, still following commands and remains cooperative, seated upright in the ED bed, fatigued, but more interactive, unclothed aside diaper. Skin: Normal color, normal turgor, no icterus, no cyanosis except for significant bilateral lower extremity venous stasis skin changes, occasional ecchymoses. HEENT: AT/NC, EOMI, PERRLA, mildly dry MM, notable facial hair. Lungs: Significantly diminished, greater bases, mildly increased respiratory rate but no distress, no rales, ronchi or wheezing. Heart: Remains irregular, currently rate is improved, rate control; no gallop, rub audible, no marked murmurs appreciated. Abdomen: Soft, morbidly obese, NTTP, difficult to assess distention and HSM given habitus, distant bowel sounds. extremities: No cyanosis, no clubbing, no marked pitting peripheral edema, significant bilateral lower extremity venous stasis skin changes as noted. Neurological: Patient awake, alert, oriented as noted, cognitive function intact; pupils equally reactive to light and accommodation, cranial nerves II- XII grossly normal, moving all 4 extremities, no focal deficits, strength moderately to severely globally decreased secondary to acute presentation, currently no tremors or spasms noted. Psychiatric: Affect appears more calm, does appear fatigued, has underlying anxiety and depression but currently not apparent. Assessment & Plan Assessment/Plan (1) Pneumonia: QUALIFIERS: Laterality: left Lung location: lower lobe of lung Pneumonia type: due to unspecified organism Qualified Code(s): J18.9 - Pneumonia, unspecified organism PLAN: Plan The patient is a 66 y/o M w/ PMHx: CKD stage II, Morbid Obesity, ALEJANDRA unable to tolerate PAP therapy, CAD s/p CABG and PCI, Former tobacco use, PAF, Anxiety and Depression, Graves disease, Chronic Systolic CHF, HTN, HLD, GERD w/ Hx GI bleed/gastric ulcers, Rheumatoid arthritis, Hx bowel perforation s/p partial colectomy who presents to the [facility] ED on 08/03/22 with history of onset fevers 10 1-1 02 as well as rigors, increased fatigue anorexia as well as potentially loose stools although reportedly last had been day prior to evaluation with concurrent increased confusion and hallucinations prompting skilled facility to transition the patient to ED for evaluation. #1. Acute Encephalopathy, Suspected Infectious, possibly multifactorial secondary to Acute MRSA Pneumonia with Chronic Hypoxic Respiratory Failure (2L NC baseline) and Medications, Possibly also Hypercalcemia related: Chest x-ray is noted with possible hazy pulmonary edema versus atelectasis versus infiltrate left lower lung with a small effusion, COVID-negative, influenza antigen negative, urine antigens negative, 08/03/22 Bld Cx with NGTD, Sputum Cx resulted with MRSA sensitive to IV Vancomycin, initially treated with IV azithromycin, Roephin in the ED->changed upon admission 08/04/2022 to BSA w/ vancomycin, cefepime and zosyn-->08/06/22 d/c zosyn/cefepime regimen given MRSA sputum. Also, cefepime may be contributing to his encephalopathy. Will encourage continued aggressive I-S, head of bed, continue supplemental oxygen with wean as tolerated to 2 L nasal cannula chronic usage, maintain on fall and aspiration precaution, PT/OT/case management consultation for discharge planning back to skilled facility. Infectious disease following. As noted neurology evaluation 08/05/22 evening with recommendation for evaluations for tremors/spasms as well as encephalopathy w/ recommendation further evaluation hypercalcemia is could be related to confusion with pending vitamin D level, PTH, ionized calcium. #2. Paroxsymal atrial fibrillation w/ RVR: Patient with atrial fibrillation with RVR, likely secondary to acute presentation #1, TSH mildly elevated, free T4 also slightly elevated; however, given acute presentation with critical illness would benefit from a repeat thyroid function studies outpatient once #1 resolved but if persists would need further work-up/evaluation, mag normal level, initially had been on oral metoprolol home dose and started also on oral Cardizem with overlapping Cardizem drip as well as IV amiodarone drip, 08/05/22 Echo with normal LV size, mild global LV systolic dysfunction, EF 47%, mildly dilated RV, mild global RV systolic dysfunction, mild to moderate MVI with contrast injection performed. 08/05/2022 initially attempted to increase short acting oral Cardizem and transition off IV amiodarone however resulted in low soft BP. 08/06/22 changed to cardizem 120 mg longacting BID from short acting as can have occasional rebound tachycardia associated and more effect on pressure, overlapped also with amiodarone oral regimen x 3 doses which will complete today 08/06/22. Continued on home Xarelto regimen. #3. Atypical intermittent diffuse extremity tremors/spasms, unclear etiology: 08/05/22 EEG obtained with mild generalized background slowing although technically limited with mild irregularities of cerebral function possibly r eflective of toxic, metabolic, neurodegenerative, inflammatory, infectious or structural abnormalities per neurology read with no definitive seizures noted either focal, lateralized or elective form abnormalities. 08/05/22 MRI of the brain with no significant interval change compared to CT head 08/04/2022, no acute intracranial findings. 08/05/22 Neurology consultation performed with recommendation hypercalcemia assessment as noted with pending vitamin D level and currently PTH as well as ionized calcium in addition to CT cervical spine and thoracic spine which was obtained. Imaging studies obtained with CT cervical spine with evaluation limited due to motion with multilevel moderate to severe degenerative changes, mildly enlarged cervical lymph nodes. CT thoracic spine obtained with no acute fracture or subluxation however there is multilevel degenerative changes with mild to moderate spinal canal and neuroforaminal narrowing with recommendation for further MRI to evaluate for any cord compression, nonspecific mildly enlarged intrathoracic lymphadenopathy with small pleural effusions. MRI of the thoracic and lumbar spine ordered and pending. Discussed case with CT imaging with Dr. Laureano given concerns and he recommended also addition of MRI cervical spine which was added. Discussed with MRI team and will have as needed Ativan as he had some difficulty having CT cervical spine and thoracic spine performed the day prior. #4. Acute on Chronic Normocytic anemia/Fe deficiency anemia, unclear etiology for decrease: Admission hemoglobin 8.8, trended down 08/04/2022 hemoglobin 8.4 -->08/06/2022 hemoglobin 8.4, will continue iron supplementation, folic acid 3.80 (low normal), vitamin B12 288 (low normal), Fe 19 (low), TIBC 220 (low), Fe sat 8.6% (low), Ferritin 1601 (elevated) consistent with notable AOCD, guaiac requested specially given chronic anticoagulation and still pending sample. Continue to trend CBC. #5. Chronic systolic CHF: 08/05/22 Echo with normal LV size, mild global LV systolic dysfunction, EF 47%, mildly dilated RV, mild global RV systolic dysfunction, mild to moderate MVI with contrast injection performed, will continue patient home Xarelto, metoprolol, statin, lisinopril, spironolactone, Lasix home regimen. Judiciously hydrate if necessary. #6. Graves' disease: Patient with noted history, unclear specific interventions previously, current admission with TSH 3.95, free T4 1.47 But again patient is critically ill with acute presentation as noted above thus will continue treatment and especially given #2 we will need repeat follow-up thyroid function studies once the acute phase has resolved to assure there is no further evaluation work-up necessary. #7. Chronic Kidney Disease Stage II: Admission BUN/Cr 25/1.15, baseline renal function appears primarily 1.0-1.2 but has vacillated admit down to 0.8 and up to 1.80 on 05/14/2022, 08/06/2022 BUN/creatinine 33/1.25, will continue to closely trend #8. Rheumatoid arthritis: We will continue patient home chronic sulfasalazine and Imuran regimen #1, antibiotic therapy as noted #1 broadened given this history, now transitioned to IV Vancomycin only given + MRSA PNA with sputum. #9. Anxiety and depression: We will continue patient home citalopram and buspar. Of note bupropion had been transiently held secondary to concerns of continuation well hallucinating. #10. Hypertension: Continue home regimen including metoprolol, lisinopril, spironolactone, Lasix, as noted altering Cardizem from short acting to long- acting, PRN hydralazine. #11. Hyperlipidemia: We will continue patient on statin and fenofibrate therapy. #12. GERD with history of previous GI bleed, gastric ulcers: We will continue patient home PPI. #13. CAD: Status post PCI and CABG, will continue patient home Xarelto, statin, metoprolol, lisinopril home regimen. #14. ALEJANDRA: Unable to tolerate CPAP/BiPAP therapy, encourage continued outpatient reassessments given new devices available. #15. Former tobacco use: Encourage continued tobacco cessation. #16. DVT prophylaxis: Continue patient home Xarelto regimen. #17. Code Status: Full Code. Admission Evaluation Time spent evaluating chart, patient history, patient evaluation, care planning and discussion with specialists: 50 minutes. Charges/Coding Visit Charges Inpatient E&M: 65151 [facility] L3
[2022-08-06 09:01] LABS: Vitamin B12 288 pg/mL (211-911); Vitamin D,25 Hydroxy 63.4 ng/mL
--- NOTE | 2022-08-06 09:19 | CASEMGMT ---
Discharge Planning Updates sent to [facility] via [employer]. Leela Bass
[2022-08-06] MEDS: Furosemide 40 MG Tablet PO (09:42)
[2022-08-06] MEDS: Amiodarone 200 MG Tablet 100 MG PO (09:42)
[2022-08-06] MEDS: Fenofibrate 48 MG Tablet PO (09:42)
[2022-08-06] MEDS: Pantoprazole Sodium 20 MG Tablet PO (09:42)
[2022-08-06] MEDS: Lisinopril 5 MG Tablet PO (09:42)
[2022-08-06] MEDS: Cholecalciferol (VIT D3) 25 MCG TABLET (1,000 UNITS) 50 MCG PO (09:42)
[2022-08-06] MEDS: guaiFENesin 1,200 MG Tablet 1200 MG PO (09:42)
[2022-08-06] MEDS: busPIRone 15 MG TABLET PO (09:43)
[2022-08-06] MEDS: sulfaSALAzine 500 MG Tablet 1000 MG PO (09:43)
[2022-08-06] MEDS: Multivitamins,Ther W-Minerals Tablet 1 TABLET PO (09:43)
[2022-08-06] MEDS: Metoprolol(XL)Succ 200 MG Tablet PO (09:43)
[2022-08-06] MEDS: Citalopram 20 MG Tablet PO (09:43)
[2022-08-06] MEDS: dilTIAZem CD 120 MG Capsule PO (09:43)
[2022-08-06] MEDS: Spironolactone 25 MG Tablet PO (09:44)
[2022-08-06] MEDS: Menthol/Lanolin/Calamine/Znox 113 GM Tube 1 APPLIC TOPICAL (09:44)
[2022-08-06] MEDS: azaTHIOprine 50 MG Tablet PO (09:44)
[2022-08-06] MEDS: Nystatin Powder 15gm Bottle 1 APPLIC TOPICAL (09:44)
[2022-08-06] MEDS: Ferrous Sulfate 325 MG Tablet PO ×2 (09:44→17:19)
--- NOTE | 2022-08-06 09:45 | CASEMGMT ---
SW reviewed chart and noted patient is from [place]. SW met with patient. Introduced self and role at [facility]. Patient confirmed he plans on returning to [place] at discharge. Plan: d/c back to [place] [facility] [place]
[2022-08-06 09:49] LABS: PTHIN < 6.3 pg/mL (18.4-80.1)
--- NOTE | 2022-08-06 10:44 | PCM.CONS.GEN ---
Assessment & Plan Assessment/Plan (1) Pneumonia: QUALIFIERS: Pneumonia type: due to unspecified organism Laterality: left Lung location: lower lobe of lung Qualified Code(s): J18.9 - Pneumonia, unspecified organism PLAN: MRSA pneumonia - cont with vanc, feeling better since admit. Will follow, thank you HPI Consult Data Date of Consult: 08/06/22 HPI Narrative Reason for Consultation: pneumonia HPI Narrative: DEMIAN NELSON, is a 66 M with CAD s/p CABG, admitted 08/03 from [facility] with several days fever, chills. Reports diarrhea for several weeks, unchanged. No blood in stool. Coughing up some white sputum, feeling dyspneic. Came to ED, admitted on azithro/ceftriaxone, changed to cefepime, now on vanc with sputum showing MRSA. Feeling better. Full ROS performed and neg except as noted above. [facility] Medical History Anxiety Atrial fibrillation Back pain Blackout Cardiology follow-up encounter CHF (congestive heart failure) Coronary artery disease involving coronary bypass graft Depression Dietary restriction Difficulty chewing Former smoker Graves disease High cholesterol History of atrial fibrillation History of echocardiogram History of edema History of heart attack History of kidney stones History of pain when walking History of renal disease History of stomach ulcers History of stress test Hypertension Ischemic cardiomyopathy Neuropathy Nocturia Rheumatoid arthritis Shortness of breath on exertion Walker as ambulation aid Home Medications atorvastatin 80 mg tablet 80 mg PO QHS CHOLESTEROL 07/05/19 [History Last Taken 05/13/22] bupropion HCl 100 mg tablet 150 mg PO TID DEPRESSION 07/05/19 [History Last Taken 05/14/22] buspirone 15 mg tablet 15 mg PO BID ANXIETY 07/05/19 [History Last Taken 05/14/22] metoprolol succinate 200 mg tablet,extended release 24 hr 200 mg PO DAILY BLOOD PRESSURE 07/05/19 [History Last Taken 05/14/22] multivitamin with minerals 1 ea PO DAILY HEALTH MAINTENANCE 07/05/19 [History Last Taken 05/14/22] nitroglycerin 0.4 mg sublingual tablet 0.4 mg sublingual Q5M PRN CHEST PAIN 07/05/19 [History Last Taken Unknown] azathioprine 50 mg tablet 50 mg PO BID RHEUMATOID ARTHRITIS 11/29/21 [History Last Taken 05/14/22] fenofibrate 54 mg tablet 54 mg PO DAILY CHOLESTEROL 11/29/21 [History Last Taken 05/14/22] lisinopril 5 mg tablet 5 mg PO DAILY BLOOD PRESSURE 11/29/21 [History Last Taken 05/14/22] pregabalin 50 mg capsule (Lyrica) 50 mg PO BID PAIN 11/29/21 [History Last Taken 05/14/22] rivaroxaban 20 mg tablet (Xarelto) 20 mg PO QPM BLOOD THINNER 11/29/21 [History Last Taken 05/13/22] sulfasalazine 500 mg tablet 1,000 mg PO DAILY RHEUMATOID ARTHRITIS 11/29/21 [History Last Taken 05/13/22 12:00] torsemide 20 mg tablet 20 mg PO DAILY CONGESTIVE HEART FAILURE 11/29/21 [History Last Taken 05/14/22] cholecalciferol (vitamin D3) 50 mcg (2,000 unit) tablet 2,000 mcg PO DAILY SUPPLEMENT 04/22/22 [History Last Taken 05/14/22] simethicone 125 mg chewable tablet 125 mg PO BID GAS RELIEF 04/22/22 [History Last Taken 05/14/22] spironolactone 25 mg tablet 25 mg PO DAILYCM CONGESTIVE HEART FAILURE 04/22/22 [History Last Taken 05/13/22 12:00] bisacodyl 10 mg rectal suppository 10 mg IN DAILY PRN CONSTIPATION 05/14/22 [History Last Taken Unknown] citalopram 20 mg tablet 20 mg PO DAILY DEPRESSION 05/14/22 [History Last Taken 05/14/22] diltiazem HCl 120 mg capsule,extended release 24 hr (Cardizem CD) 120 mg PO QHS BLOOD PRESSURE 05/14/22 [History Last Taken 05/13/22] ferrous sulfate 325 mg (65 mg iron) tablet 325 mg PO BIDCM SUPPLEMENT 05/14/22 [History Last Taken 05/14/22 08:00] omeprazole 20 mg capsule,delayed release 20 mg PO DAILY ACID REFLUX 05/14/22 [History Last Taken 05/14/22] tramadol 50 mg tablet 50 mg PO Q8H PRN PAIN 05/14/22 [History Last Taken Unknown] melatonin 5 mg tablet 5 mg PO QHS 08/03/22 [History Last Taken Unknown] Allergy/AdvReac Type Severity Reaction Status Date / Time Penicillins [PCN] Allergy Swelling Verified 05/14/22 12:51 Family History Mother Cancer Father Heart disease Thyroid disorder Hypertension Sister Kidney disease Cancer Diabetes Brother Diabetes Surgical History H/O hernia repair History of cardiac catheterization History of esophagogastroduodenoscopy (EGD) History of incision and drainage Hx of colectomy Hx of colonoscopy Hx of heart bypass surgery S/P cervical spinal fusion S/P right knee arthroscopy Social History Smoking Status: Former smoker Physical Exam Const alert, oriented x3 and no apparent distress General Appearance: cooperative HEENT normocephalic and head/scalp atraumatic Eyes PERRL and EOMs intact bilaterally Neck supple and No nodes Resp Auscultation: rhonchi Cardio regular rate and regular rhythm GI soft to palpation, non-tender and non-distended Extremity General Extremity: Negative for edema Skin no rashes or lesions noted Neuro CN's II-XII intact bilaterally Lab / Micro Data Attestation: I reviewed the patient's lab results. Result Diagrams: 08/06/22 03:50 08/06/22 03:50 Labs: Laboratory Results - last 24 hr 08/04/22 04:35: Vitamin B12 288, Vitamin D 25-Hydroxy 63.4 08/04/22 04:35: PTH Intact < 6.3 L 08/05/22 06:13: Iron 19 L, TIBC 220 L, Iron Saturation 8.6 L, Ferritin 1601 H, Folate 3.80 08/05/22 08:46: MRSA (PCR) Negative 08/05/22 21:45: Ammonia < 10.0 L, PTH Intact Cancelled 08/05/22 21:45: Vitamin D 25-Hydroxy Cancelled 08/06/22 03:50: WBC 14.7 H, RBC 3.01 L, Hgb 8.4 L, Hct 26.5 L, MCV 88.0, MCH 27.9, MCHC 31.7 L, RDW Std Deviation 53.7 H, RDW Coeff of Trev 16.5 H, Plt Count 397, MPV 8.9, Immature Gran % (Auto) 0.700, Neut % (Auto) 87.5 H, Lymph % (Auto) 3.8 L, [place] % (Auto) 5.2, Eos % (Auto) 2.4, Baso % (Auto) 0.4, Absolute Neuts (auto) 12.9 H, Absolute Lymphs (auto) 0.56 L, Nucleated RBC % 0, Differential Comment SCANNED 08/06/22 03:50: Sodium 135 L, Potassium 4.1, Chloride 103, Carbon Dioxide 24.0, Anion Gap 8, BUN 33 H, Creatinine 1.25, Estim Creat Clear Calc 65.76, Est GFR (MDRD) Af Amer 74, Est GFR (MDRD) Non-Af 61, BUN/Creatinine Ratio 26.4 H, Glucose 98, Calcium 10.3 H, Total Bilirubin 0.50, AST 28, ALT 11 L, Alkaline Phosphatase 71, Total Protein 7.5, Albumin 1.7 L, Globulin 5.8 H, Albumin/Globulin Ratio 0.3 L 08/06/22 03:50: Vancomycin Trough 23.8 H Micro: Microbiology 08/03/22 20:10 Urine, Clean Catch Urine Culture - Final Culture exhibits no growth. 08/04/22 00:01 Sputum, Expectorated/Coughed Gram Stain - Final 08/04/22 00:01 Sputum, Expectorated/Coughed Respiratory Culture - Preliminary Meth. resistant Staph. aureus 08/03/22 18:55 Blood Culture (Wb) - Left Forearm Blood Culture - Preliminary No growth in 48 hours. 08/03/22 19:05 Blood Culture (Wb) - Left Wrist Blood Culture - Preliminary No growth in 48 hours. Radiology Impression Echocardiogram 08/04/22 13:57 Interpretation Summary Normal LV size. Mild global left ventricular systolic dysfunction. The estimated ejection fraction is 47 %. Mildly dilated right ventricle. Mild global right ventricular systolic dysfunction. Mild-Moderate (1-2+) eccentric mitral valve insufficiency. Contrast injection was performed. Ordering Physician: Hailey Jaimes Referring Physician: Jj Rogers Performed By: Cady Luke, RDCS, RVT Brain MRI 08/05/22 07:45 IMPRESSION: 1. Negative MRI brain without intravenous contrast. 2. No significant interval change when compared to CT head scan without contrast 08/04/2022. Electronically Signed: Vipul Christiansen MD at 13:58 EDT , Cervical Spine CT 08/05/22 21:08 IMPRESSION: 1. Evaluation limited due to motion. 2. Multilevel moderate to severe degenerative changes, can be further characterized with MRI cervical spine to evaluate for cord compression. 3. Mildly enlarged cervical lymph nodes. Electronically Signed: Tiburcio Carolina MD at 22:40 EDT , Thoracic Spine CT 08/05/22 21:08 IMPRESSION: 1. No acute fracture or subluxation. 2. Multilevel degenerative changes with mild to moderate spinal canal and neuroforaminal narrowing. Cord compression can be further characterized with MRI of the thoracic spine. 3. Nonspecific mildly enlarged intrathoracic lymphadenopathy. 4. Small pleural effusions. Electronically Signed: Tiburcio Carolina MD at 22:46 EDT ,
[2022-08-06 15:55] LABS: Bedside Glucose 85 mg/dL (74-106)
[2022-08-06 16:31] LABS: Vancomycin, Random Level 21.1 ug/mL (0.0-15.0)
--- NOTE | 2022-08-06 17:18 | PCM.RX.CS ---
Consult Type of Consult: Follow-up Suspected Infection: Pneumonia Labs: Sodium 135 mmol/L (136-145) L 08/06/22 03:50 Potassium 4.1 mmol/L (3.5-5.1) 08/06/22 03:50 Chloride 103 mmol/L (98-107) 08/06/22 03:50 Carbon Dioxide 24.0 mmol/L (21.0-32.0) 08/06/22 03:50 Anion Gap 8 (5-15) 08/06/22 03:50 BUN 33 mg/dL (7-18) H 08/06/22 03:50 Creatinine 1.25 mg/dL (0.70-1.30) 08/06/22 03:50 Est GFR (MDRD) Af Amer 74 mL/min (>60) 08/06/22 03:50 Est GFR (MDRD) Non-Af 61 mL/min (>60) 08/06/22 03:50 BUN/Creatinine Ratio 26.4 RATIO (10-20) H 08/06/22 03:50 Glucose 98 mg/dL (74-106) 08/06/22 03:50 Vancomycin Trough 23.8 ug/mL (5.0-15.0) H 08/06/22 03:50 Random Vancomycin 21.1 ug/mL (0.0-15.0) H 08/06/22 15:50 Microbiology: Microbiology 08/03/22 20:10 Urine, Clean Catch Urine Culture - Final Culture exhibits no growth. 08/04/22 00:01 Sputum, Expectorated/Coughed Gram Stain - Final 08/04/22 00:01 Sputum, Expectorated/Coughed Respiratory Culture - Preliminary Meth. resistant Staph. aureus 08/03/22 18:55 Blood Culture (Wb) - Left Forearm Blood Culture - Preliminary No growth in 48 hours. 08/03/22 19:05 Blood Culture (Wb) - Left Wrist Blood Culture - Preliminary No growth in 48 hours. 08/03/22 20:10 Urine, Random Legionella Antigen - Final 08/03/22 20:10 Urine, Random Streptococcus pneumoniae Antigen (M - Final 08/03/22 19:00 Nasal Secretion SARS-CoV-2 & FLU Antigen (Rapid) - Final Weight used for dosin.2 kg Estimated Creatinine Clearance: 82.6mL/min Goal Trough: 15-20 mcg/mL Pharmacy Plan for Drug Dosing: VANCOMYCIN LEVEL RECEIVED Current Vancomycin Dose: on hold Number of Doses Received: 2000mg x1, 1750mg x3 Vancomycin Level: 21.1 Hours Since Last Dose: 11 Renal Function: sCr 1.25 (CrCl 82.6 using AdjBW 103.2kg) Renal Function Trend: stable Lab/Micro: sputum growing MRSA Vancomycin Plan/Comments: restart Vancomycin at 1500mg Q12H, to start at 2100 08/06/22 Pending Level: Vancomycin trough @ 0830 08/08/22 Pharmacy Service will continue to monitor and adjust dosing as required. Labs to be done on [date and time ordered]: Vancomycin trough @ 0830 08/08/22
[2022-08-06] MEDS: Rivaroxaban 20 MG Tablet PO (17:19)
[2022-08-06] MEDS: LORazepam 2 MG/ML Syringe IV (17:49)
[2022-08-06 19:04] LABS: Bedside Glucose 97 mg/dL (74-106)
[2022-08-06 19:32] LABS: Magnesium 2.1 mg/dL (1.6-2.6)
--- NOTE | 2022-08-06 20:22 | NURSING ---
pt noted cold and diaphoretic blood glucose 103. VS obtained, bedside monitor applied to pt.
[2022-08-06] MEDS: 0.9% Saline Lock 10 ML Syringe IV (20:29)
--- NOTE | 2022-08-06 21:42 | RAD_ITS ---
INDICATION: hypoxia EXAMINATION/TECHNIQUE: X-RAY - XR Chest 1 View COMPARISON: 08/03/2022. FINDINGS: LINES/DEVICES: None. LUNGS: Stable diffuse interstitial opacities. Left basilar atelectasis versus infiltrate. Small left pleural effusion difficult to exclude. No evidence of a pneumothorax. MEDIASTINUM AND CARDIOVASCULAR STRUCTURES: Stable cardiomegaly. Stable postsurgical changes. BONES AND SOFT TISSUES: No acute abnormality. RAD/Chest 1 View (Portable) IMPRESSION: 1. Cardiomegaly and interstitial edema. 2. Left basilar atelectasis versus infiltrate and/or small left pleural effusion. Electronically Signed: Damien Pierre DO at 23:13 EDT ,
--- NOTE | 2022-08-06 22:04 | NURSING ---
Dr. Willoughby at bedside, physician aware no oral medication provided at this time, will monitor pt VS. Pt noted with periods of apnea, 02 intact via NC. x-ray and VBS obtained.
[2022-08-06 22:13] LABS: Bedside Glucose 103 mg/dL (74-106)
[2022-08-06 22:23] LABS: Blood Gas Specimen Type VEN; VBG BASE EXCESS -1 mmol/L (-1.0-3.5); VBG Bicarbonate 25 mmol/L (22-26); VBG PO2 30 mmHg (25-40); VBG SO2 54 % (50-70); VBG TCO2 26 mmol/L (23-33); VBG pH 7.35 (7.32-7.42)
[2022-08-07] VITALS (29 sets, daily range): BP systolic 86–122; BP diastolic 56–95; PULSE 71–166; RESP 14–38; TEMP 36.6–37.3; O2SAT 91–100
[2022-08-07] MEDS: Menthol/Lanolin/Calamine/Znox 113 GM Tube 1 APPLIC TOPICAL ×3 (02:29→21:08)
[2022-08-07] MEDS: Nystatin Powder 15gm Bottle 1 APPLIC TOPICAL ×3 (02:29→21:08)
[2022-08-07 05:44] LABS: Absolute Lymphocyte Count 0.65 X10^3/uL (0.83-4.51); Absolute Neutrophil Count 12.3 X10^3/uL (2.0-7.7); Basophil# 0.07 X10^3/uL; Basophil% 0.5 % (0-1); Eosinophil# 0.13 X10^3/uL; Eosinophils% 0.9 % (0-5); Hematocrit 28.9 % (40-54); Hemoglobin 8.9 g/dL (13.0-16.5); Lymphocyte # 0.65 X10^3/ul (0.83-4.51); Lymphocyte % 4.6 % (19-41); Mean Corp Hgb Conc 30.8 g/dL (32-36); Mean Corpuscular Hgb 27.1 pg (27.0-32.0); Mean Corpuscular Volume 87.8 fL (80-94); Mean Platelet Vol. 8.7 fl (6.2-12.0); Monocyte# 0.99 X10^3/uL; NRBC Flagged by Analyzer 0 % (0-5); Neutrophil # 12.26 X10^3/uL (2.7-7.7); Neutrophil % 86.2 % (47-70); Platelet Count 452 K/mm3 (150-450); RBC Distribution Width CV 16.8 % (11.6-14.6); RBC Distribution Width SD 53.8 fl (35.1-43.9); Red Blood Count 3.29 M/mm3 (4.6-6.2); White Blood Count 14.2 K/mm3 (4.4-11.0)
[2022-08-07 06:31] LABS: ALB/GLOB Ratio 0.3 RATIO (0.9-2.4); AST(SGOT) 26 U/L (15-37); Alanine Aminotransfer ALT/SGPT 16 U/L (16-61); Albumin, Serum 1.8 g/dL (3.2-5.0); Alkaline Phosphatase 77 U/L (45-117); Anion Gap 7 (5-15); BUN 31 mg/dL (7-18); BUN/Creat Ratio 31.1 RATIO (10-20); Calcium,Total 10.9 mg/dL (8.5-10.1); Chloride 110 mmol/L (98-107); EST Glomerular Filtration Rate 79 mL/min (>60); Est Glom Filt Rate - Afr Amer 96 mL/min (>60); Glucose 104 mg/dL (74-106); Potassium 3.6 mmol/L (3.5-5.1); Protein, Total 7.8 g/dL (6.4-8.2); Sodium Level 141 mmol/L (136-145)
--- NOTE | 2022-08-07 06:35 | PCM.PN.HOSP ---
Reason for Visit Reason for Visit: Diagnoses Hypokalemia (08/03/22) Unspecified atrial fibrillation (08/03/22) Pneumonia, unspecified organism (08/03/22) Subjective Subjective Patient with significant vents over the course of the evening including a rapid in the evening while attempting to obtain an MRI prior to any Ativan administration as patient necessitates using this given his inability to hold still and intolerance of lying flat as well as anxiety unfortunately very quickly braiding down into the 30s with mild diaphoresis however within seconds returned to her normal rate and was appropriate but MRI was discontinued he was brought back to the room. Through the evening patient while sleeping also was noted to have 2 to 3-second apneic episodes. Patient of note does have sleep apnea and continues to refuse any CPAP or BiPAP therapies. 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 Patient's mental status improved on BiPAP and he was even more awake and alert and interactive upon transition to the ICU. In the ICU patient did have more tremor and spasms therefore neurology was reconsulted and it was the same neurologist as the day prior who reviewed all the data and requested at this point repeat ammonia level, repeat EEG and infectious disease continued involvement for potential broadening of antibiotic therapy in case there is any concern for brain involvement although lower suspicion given recent BSA abx therapy and currently on appropriate regimen. Patient is encephalopathic upon evaluation still however and unable to give appropriate ROS answers. Objective Data Objective Data Vital Signs: Vital Signs Temp Pulse Resp BP Pulse Ox O2 Del Method O2 Flow Rate 98.7 F 94 21 H 104/66 91 Nasal Cannula 5 08/07/22 06:16 08/07/22 06:16 08/07/22 06:16 08/07/22 06:16 08/07/22 06:16 08/07/22 06:16 08/07/22 06:16 FiO2 30 08/07/22 00:34 Oxygen Flow Rate (L/min) 5 Oxygen Delivery Method Nasal Cannula Weight: 297 lb 2.93 oz Body Mass Index (BMI) 38.1 Intake & Output: Intake and Output for Last 24 Hours 08/05/22 08/06/22 08/07/22 23:59 23:59 23:59 Intake Total 3182.93 / 3182.93 1873.33 / 1873.33 0 / 0 Output Total 300 / 300 300 / 300 Balance 2882.93 / 2882.93 1573.33 / 1573.33 0 / 0 Lab / Micro Data Result Diagrams: 08/07/22 05:24 08/07/22 05:24 Labs: Laboratory Results - last 24 hr 08/04/22 04:35: Vitamin B12 288, Vitamin D 25-Hydroxy 63.4 08/04/22 04:35: PTH Intact < 6.3 L 08/05/22 21:45: PTH Intact Cancelled 08/05/22 21:45: Vitamin D 25-Hydroxy Cancelled 08/06/22 15:34: POC Glucose 85 08/06/22 15:50: Random Vancomycin 21.1 H 08/06/22 18:46: POC Glucose 97 08/06/22 19:14: Magnesium 2.1 08/06/22 20:21: POC Glucose 103 08/07/22 05:24: WBC 14.2 H, RBC 3.29 L, Hgb 8.9 L, Hct 28.9 L, MCV 87.8, MCH 27.1, MCHC 30.8 L, RDW Std Deviation 53.8 H, RDW Coeff of Trev 16.8 H, Plt Count 452 H, MPV 8.7, Immature Gran % (Auto) 0.800, Neut % (Auto) 86.2 H, Lymph % (Auto) 4.6 L, [place] % (Auto) 7.0, Eos % (Auto) 0.9, Baso % (Auto) 0.5, Absolute Neuts (auto) 12.3 H, Absolute Lymphs (auto) 0.65 L, Nucleated RBC % 0 08/07/22 05:24: Sodium 141, Potassium 3.6, Chloride 110 H, Carbon Dioxide 24.0, Anion Gap 7, BUN 31 H, Creatinine 1.00, Estim Creat Clear Calc 82.20, Est GFR (MDRD) Af Amer 96, Est GFR (MDRD) Non-Af 79, BUN/Creatinine Ratio 31.1 H, Glucose 104, Calcium 10.9 H, Total Bilirubin 0.40, AST 26, ALT 16, Alkaline Phosphatase 77, Total Protein 7.8, Albumin 1.8 L, Globulin 6.0 H, Albumin/Globulin Ratio 0.3 L Micro: Microbiology 08/03/22 20:10 Urine, Clean Catch Urine Culture - Final Culture exhibits no growth. 08/04/22 00:01 Sputum, Expectorated/Coughed Gram Stain - Final 08/04/22 00:01 Sputum, Expectorated/Coughed Respiratory Culture - Preliminary Meth. resistant Staph. aureus 08/03/22 18:55 Blood Culture (Wb) - Left Forearm Blood Culture - Preliminary No growth in 48 hours. 08/03/22 19:05 Blood Culture (Wb) - Left Wrist Blood Culture - Preliminary No growth in 48 hours. 08/03/22 20:10 Urine, Random Legionella Antigen - Final 08/03/22 20:10 Urine, Random Streptococcus pneumoniae Antigen (M - Final 08/03/22 19:00 Nasal Secretion SARS-CoV-2 & FLU Antigen (Rapid) - Final ABG Data ABG results: ABG 08/06/22 22:19 Specimen Type ISAURA VBG pH 7.35 VBG pO2 30 VBG HCO3 25 VBG Total CO2 26 VBG O2 Sat (Calc) 54 VBG Base Excess -1 POC Mix VBG pCO2 Pt Tmp 45.0 Radiography Diagnostic Testing: Radiology Impression Chest X-Ray 08/06/22 21:42 IMPRESSION: 1. Cardiomegaly and interstitial edema. 2. Left basilar atelectasis versus infiltrate and/or small left pleural effusion. Electronically Signed: Damien Pierre at 23:13 EDT Reading Location ID and State: [facility] / [place] Tel , Service support , Physical Exam Narrative Physical Examination: General: Initially lethargic, awakening some to stimuli, improved after BIPAP usage, not alert, not able to answer orientation questions, laying in the PCU bed, ill appearing, increased RR, accessory muscle usage evidence, having some tremors/spasms similar to prior. Skin: Normal color, normal turgor, no icterus, no cyanosis except for significant bilateral lower extremity venous stasis skin changes, occasional ecchymoses. HEENT: AT/NC, EOM unable to be assessed given acute lethargy, PERRLA, mildly dry MM. Lungs: Difficulty managing upper airway secretions, diminished, greater bases, mildly increased respiratory rate, mild distress noted, BIPAP being placed given acute presentation, rales bases but distant, no ronchi or wheezing. Heart: Remains irregular, rate mildly elevated; no gallop, rub audible, no marked murmurs appreciated. Abdomen: Soft, morbidly obese, NTTP, difficult to assess distention and HSM given habitus, distant bowel sounds. extremities: No cyanosis, no clubbing, no marked pitting peripheral edema, significant bilateral lower extremity venous stasis skin changes as noted.? Neurological: Initially lethargic, awakening some to stimuli, improved after BIPAP usage, not alert, not able to answer orientation questions, laying in the PCU bed, ill appearing, increased RR, accessory muscle usage evidence, having some tremors/spasms similar to prior, cognitive function not baseline intact; pupils equally reactive to light and accommodation, cranial nerves unable to be assessed well given acute encephalopathy, moving extremities spontaneously, strength severely globally decreased. Psychiatric: Affect appears lethargic, increased RR/accessory usage, BIPAP being placed, no evidence anxiety or depression but has underlying history. Assessment & Plan Assessment/Plan (1) Pneumonia: QUALIFIERS: Pneumonia type: due to unspecified organism Laterality: left Lung location: lower lobe of lung Qualified Code(s): J18.9 - Pneumonia, unspecified organism PLAN: Plan The patient is a 66 y/o M w/ PMHx: CKD stage II, Morbid Obesity, ALEJANDRA unable to tolerate PAP therapy, CAD s/p CABG and PCI, Former tobacco use, PAF, Anxiety and Depression, Graves disease, Chronic Systolic CHF, HTN, HLD, GERD w/ Hx GI bleed/gastric ulcers, Rheumatoid arthritis, Hx bowel perforation s/p partial colectomy who presents to the [facility] ED on 08/03/22 with history of onset fevers 10 1-1 02 as well as rigors, increased fatigue anorexia as well as potentially loose stools although reportedly last had been day prior to evaluation with concurrent increased confusion and hallucinations prompting skilled facility to transition the patient to ED for evaluation. #1. Acute Encephalopathy, Suspected Infectious, possibly multifactorial secondary to Acute MRSA Pneumonia with Chronic Hypoxic Respiratory Failure (2L NC baseline) and Medications, Possibly also Hypercalcemia related: Chest x-ray is noted with possible hazy pulmonary edema versus atelectasis versus infiltrate left lower lung with a small effusion, COVID-negative, influenza antigen negative, urine antigens negative, 08/03/22 Bld Cx with NGTD, Sputum Cx resulted with MRSA sensitive to IV Vancomycin, initially treated with IV azithromycin, Rocephin in the ED->changed upon admission 08/04/2022 to BSA w/ vancomycin, cefepime and zosyn-->08/06/22 d/c zosyn/cefepime regimen given MRSA sputum. Also, cefepime may be contributing to his encephalopathy. 08/06/22-08/07/22 overnight with episodes of apnea per staff, suspected related to his untreated ALEJANDRA, ordered STAT ABG that was not marked appearing, CXR with improving central pulmonary edema, mild residual bibasilar atelectasis, administered lasix 20 mg IV x 1 and placed on BIPAP with transition to the ICU and Director Of Pediatric Rehabilitation consultation. As noted neurology evaluation 08/05/22 evening with recommendation for evaluations for tremors/spasms as well as encephalopathy w/ recommendation further evaluation hypercalcemia is could be related to confusion with pending vitamin D level, PTH, ionized calcium; however, given recurrent worsened episode lethargy and ongoing tremors/spasms re-consulted 08/07/22 with recommendation for repeat NH which was normal range, repeat EEG (no seizure activity, nonspecific initial) and continued plan for MRI imaging of spine once able to obtain as well as LP consideration but given NOAC usage not able to immediatley do and on BSA which has been narrowed with ID following. PT/OT/case management consultation for discharge planning back to skilled facility. Infectious disease following. #2. Paroxsymal atrial fibrillation w/ RVR: Patient with atrial fibrillation with RVR, likely secondary to acute presentation #1, TSH mildly elevated, free T4 also slightly elevated; however, given acute presentation with critical illness would benefit from a repeat thyroid function studies outpatient once #1 resolved but if persists would need further work-up/evaluation, mag normal level, initially had been on oral metoprolol home dose and started also on oral Cardizem with overlapping Cardizem drip as well as IV amiodarone drip, 08/05/22 Echo with normal LV size, mild global LV systolic dysfunction, EF 47%, mildly dilated RV, mild global RV systolic dysfunction, mild to moderate MVI with contrast injection performed. 08/05/2022 initially attempted to increase short acting oral Cardizem and transition off IV amiodarone however resulted in low soft BP. 08/06/22 changed to cardizem 120 mg longacting BID from short acting as can have occasional rebound tachycardia associated and more effect on pressure, overlapped also with amiodarone oral regimen x 3 doses completed 08/06/22. 08/06/22 evening of note patient did have transient bradycardia just prior to attempting to obtain MRI with diaphoresis, rapid called but resolved within seconds to typical rate, mental status appropriate with no further events overnight on telemetry. Continued on home Xarelto regimen. #3. Atypical intermittent diffuse extremity tremors/spasms, unclear etiology: 08/05/22 EEG obtained with mild generalized background slowing although technically limited with mild irregularities of cerebral function possibly reflective of toxic, metabolic, neurodegenerative, inflammatory, infectious or structural abnormalities per neurology read with no definitive seizures noted either focal, lateralized or elective form abnormalities. 08/05/22 MRI of the brain with no significant interval change compared to CT head 08/04/2022, no acute intracranial findings. 08/05/22 Neurology consultation performed with recommendation hypercalcemia assessment as noted with pending vitamin D level and currently PTH as well as ionized calcium in addition to CT cervical spine and thoracic spine which was obtained. Imaging studies obtained with CT cervical spine with evaluation limited due to motion with multilevel moderate to severe degenerative changes, mildly enlarged cervical lymph nodes. CT thoracic spine obtained with no acute fracture or subluxation however there is multilevel degenerative changes with mild to moderate spinal canal and neuroforaminal narrowing with recommendation for further MRI to evaluate for any cord compression, nonspecific mildly enlarged intrathoracic lymphadenopathy with small pleural effusions. Attempting to obtain MRI cervical, thoracic and lumbar spine with Dr. Laureano consulted and following; however, has yet to be able to be obtained given initially rapid and then transition to the ICU as noted. Given recurrent worsened episode of lethargy and ongoing tremors/spasms with ICU transfer 08/07/22, re-consulted 08/07/22 with recommendation for repeat NH which was normal range, repeat EEG (no seizure activity, nonspecific initial) and continued plan for MRI imaging of spine once able to obtain as well as LP consideration but given NOAC usage not able to immediatley do and on BSA which has been narrowed with ID following. #4. Acute on Chronic Normocytic anemia/Fe deficiency anemia, unclear etiology for decrease: Admission hemoglobin 8.8, trended down 08/04/2022 hemoglobin 8.4-->08/07/2022 hemoglobin 8.9, will continue iron supplementation, folic acid 3.80 (low normal), vitamin B12 288 (low normal), Fe 19 (low), TIBC 220 (low), Fe sat 8.6% (low), Ferritin 1601 (elevated) consistent with notable AOCD, guaiac requested specially given chronic anticoagulation and still pending sample. Continue to trend CBC. #5. Acute on Chronic systolic CHF Exacerbation: 08/05/22 Echo with normal LV size, mild global LV systolic dysfunction, EF 47%, mildly dilated RV, mild global RV systolic dysfunction, mild to moderate MVI with contrast injection performed. 08/06/22 CXR with evidence overload although repeat 08/07/22 AM improving. Worsening respiratory status/encephalopathy, likely secondary to also noncompliance with PAP therapy. Will continue patient home Xarelto, metoprolol, statin, lisinopril, spironolactone once oral intake appropriate, if necessary may hold. IV pulse lasix with transition once appropriate to oral home lasix regimen. #6. Graves' disease: Patient with noted history, unclear specific interventions previously, current admission with TSH 3.95, free T4 1.47 But again patient is critically ill with acute presentation as noted above thus will continue treatment and especially given #2 we will need repeat follow-up thyroid function studies once the acute phase has resolved to assure there is no further evaluation work-up necessary. #7. Chronic Kidney Disease Stage II: Admission BUN/Cr 25/1.15, baseline renal function appears primarily 1.0-1.2 but has vacillated admit down to 0.8 and up to 1.80 on 05/14/2022, 08/07/2022 BUN/creatinine 31/1.0, will continue to closely trend #8. Rheumatoid arthritis: We will continue patient home chronic sulfasalazine and Imuran regimen #1, antibiotic therapy as noted #1 broadened given this history, now transitioned to IV Vancomycin only given + MRSA PNA with sputum, given recent increased encephalopathy further abx changes per ID discretion. #9. Anxiety and depression: We will continue patient home citalopram and buspar. Of note bupropion had been transiently held secondary to concerns of continuation well hallucinating. #10. Hypertension: Continue home regimen including metoprolol, lisinopril, spironolactone, Lasix, as noted altering Cardizem from short acting to long-acting, PRN hydralazine. #11. Hyperlipidemia: We will continue patient on statin and fenofibrate therapy. #12. GERD with history of previous GI bleed, gastric ulcers: We will continue patient home PPI. #13. CAD: Status post PCI and CABG, will continue patient home Xarelto, statin, metoprolol, lisinopril home regimen once oral intake safe. #14. ALEJANDRA: Unable to tolerate CPAP/BiPAP therapy, likely contributed to his worsened encephalopathy with episodes of apnea 08/06/22-08/07/22 overnight. Once more alert will again encourage continued outpatient reassessments given new devices available. Currently on continuous BIPAP in the ICU. #15. Former tobacco use: Encourage continued tobacco cessation. #16. DVT prophylaxis: Continue patient home Xarelto regimen. #17. Code Status: Full Code. Admission Evaluation Time spent evaluating chart, patient history, patient evaluation, care planning and discussion with specialists: 50 minutes. Charges/Coding Visit Charges Inpatient E&M: [address] [facility]
[2022-08-07] MEDS: 0.9% Saline Lock 10 ML Syringe IV ×2 (06:57→20:08)
[2022-08-07] MEDS: Furosemide 20 MG/2 ML VIAL IV (06:57)
--- NOTE | 2022-08-07 08:08 | CON.PCM.CC_ITS ---
Assessment & Plan Assessment/Plan (1) Pneumonia: QUALIFIERS: Laterality: left Lung location: lower lobe of lung Pneumonia type: due to unspecified organism Qualified Code(s): J18.9 - Pneumonia, unspecified organism PLAN: Plan RECOMMENDATIONS: 1. Continue antimicrobials per ID recommendations. 2. Avoid sedating medications. 3. Recommend BiPAP therapy with naps and nightly. 4. Continue Xarelto per home regimen. 5. Supplemental oxygen to maintain saturations at or above 90%. 6. Encourage incentive spirometer use and mobilize patient as tolerated. IMPRESSIONS: 1. MRSA pneumonia Continue supportive measures with antimicrobials under the discretion of infectious diseases. 2. Encephalopathy Likely metabolic in etiology in the setting #1. ABG obtained this morning was within normal limits. However, the patient was already on BiPAP therapy at that time. Regardless, the patient's mentation improved with noninvasive positive pressure ventilatory support. This could certainly suggest that the patient may have experienced an acute event of CO2 retention. Continue supportive measures. Recommend nocturnal BiPAP support. 3. Intermittent tremors/spasms of unclear etiology Neuro work-up has been largely unrevealing. Defer additional work-up to hospitalist and neurology team. 4. Questionable history of obstructive sleep apnea The patient reportedly had a sleep study previously but has been unable to tolerate any form of conventional PAP therapy. I do suspect that the apneic events reported overnight were related to his untreated sleep apnea. Therefore, I would strongly recommend utilization of BiPAP therapy with naps and nightly. 5. History of heart failure with reduced ejection fraction/Graves' disease/chronic kidney disease/rheumatoid arthritis Complicates care, management, recovery and prognosis. Continue supportive measures as noted above. This note was generated with [employer] dictation software. It may contain incorrect words, spelling, and punctuation that were not noted in checking the note before signing. HPI Consult Data Date of Consult: 08/08/22 HPI Narrative Reason for Consultation: Hypoxemia HPI Narrative: The patient is a 66-year-old male, with a history as outlined below, who initially presented to the emergency department via EMS on August 03 with fevers a nd altered mentation. The patient had been experiencing fevers at his intermediate facility. The patient was last admitted to the hospital in May 2022 with metabolic encephalopathy, cellulitis of the left lower extremity and bacteremia. On presentation to the emergency department, the patient was noted to have a low-grade fever and was notably tachycardic and tachypneic. Initial laboratory evaluation revealed an elevated white blood cell count of 13,000. Chemistry profile was notable for a sodium of 134, potassium 3.2 and normal creatinine. Lactate was within normal limits. Chest x-ray demonstrated a possible left lower lobe infiltrate. CT head revealed chronic involutional changes of the brain. The patient was initially started on antimicrobials over concerns for pneumonia. Echocardiogram obtained on July 06 demonstrated an ejection fraction of 47%. Pulmonary artery systolic pressure was estimated to be 30 mmHg. The patient was evaluated by infectious diseases on the after sputum culture demonstrated MRSA pneumonia. The patient has been maintained on vancomycin. His hospital course has been complicated by intermittent tremors and spasms, for which neurology has been consulted and evaluated the patient. This morning, the patient became apneic and was subsequently transferred to the medical intensive care unit. Upon further discussion, the patient reported that he has been diagnosed with sleep apnea in the past, but has refused to utilize any form of nocturnal PAP therapy. The patient was ultimately placed on BiPAP prior to transfer to the ICU. Upon his arrival to the medical intensive care unit, the patient was much more alert and interactive. He was able to answer questions appropriately. The patient was also given a small dose of IV Lasix this morning as well. [facility] Medical History Anxiety Atrial fibrillation Back pain [facility] Cardiology follow-up encounter CHF (congestive heart failure) Coronary artery disease involving coronary bypass graft Depression Dietary restriction Difficulty chewing Former smoker Graves disease High cholesterol History of atrial fibrillation History of echocardiogram History of edema History of heart attack History of kidney stones History of pain when walking History of renal disease History of stomach ulcers History of stress test Hypertension Ischemic cardiomyopathy Neuropathy Nocturia Rheumatoid arthritis Shortness of breath on exertion Walker as ambulation aid Home Medications atorvastatin 80 mg tablet 80 mg PO QHS CHOLESTEROL 07/05/19 [History Last Taken 05/13/22] bupropion HCl 100 mg tablet 150 mg PO TID DEPRESSION 07/05/19 [History Last Taken 05/14/22] buspirone 15 mg tablet 15 mg PO BID ANXIETY 07/05/19 [History Last Taken 05/14/22] metoprolol succinate 200 mg tablet,extended release 24 hr 200 mg PO DAILY BLOOD PRESSURE 07/05/19 [History Last Taken 05/14/22] multivitamin with minerals 1 ea PO DAILY HEALTH MAINTENANCE 07/05/19 [History Last Taken 05/14/22] nitroglycerin 0.4 mg sublingual tablet 0.4 mg sublingual Q5M PRN CHEST PAIN 07/05/19 [History Last Taken Unknown] azathioprine 50 mg tablet 50 mg PO BID RHEUMATOID ARTHRITIS 11/29/21 [History Last Taken 05/14/22] fenofibrate 54 mg tablet 54 mg PO DAILY CHOLESTEROL 11/29/21 [History Last Taken 05/14/22] lisinopril 5 mg tablet 5 mg PO DAILY BLOOD PRESSURE 11/29/21 [History Last Taken 05/14/22] pregabalin 50 mg capsule (Lyrica) 50 mg PO BID PAIN 11/29/21 [History Last Taken 05/14/22] rivaroxaban 20 mg tablet (Xarelto) 20 mg PO QPM BLOOD THINNER 11/29/21 [History Last Taken 05/13/22] sulfasalazine 500 mg tablet 1,000 mg PO DAILY RHEUMATOID ARTHRITIS 11/29/21 [History Last Taken 05/13/22 12:00] torsemide 20 mg tablet 20 mg PO DAILY CONGESTIVE HEART FAILURE 11/29/21 [History Last Taken 05/14/22] cholecalciferol (vitamin D3) 50 mcg (2,000 unit) tablet 2,000 mcg PO DAILY SUPPLEMENT 04/22/22 [History Last Taken 05/14/22] simethicone 125 mg chewable tablet 125 mg PO BID GAS RELIEF 04/22/22 [History Last Taken 05/14/22] spironolactone 25 mg tablet 25 mg PO DAILYCM CONGESTIVE HEART FAILURE 04/22/22 [History Last Taken 05/13/22 12:00] bisacodyl 10 mg rectal suppository 10 mg MO DAILY PRN CONSTIPATION 05/14/22 [History Last Taken Unknown] citalopram 20 mg tablet 20 mg PO DAILY DEPRESSION 05/14/22 [History Last Taken 05/14/22] diltiazem HCl 120 mg capsule,extended release 24 hr (Cardizem CD) 120 mg PO QHS BLOOD PRESSURE 05/14/22 [History Last Taken 05/13/22] ferrous sulfate 325 mg (65 mg iron) tablet 325 mg PO BIDCM SUPPLEMENT 05/14/22 [History Last Taken 05/14/22 08:00] omeprazole 20 mg capsule,delayed release 20 mg PO DAILY ACID REFLUX 05/14/22 [Hi story Last Taken 05/14/22] tramadol 50 mg tablet 50 mg PO Q8H PRN PAIN 05/14/22 [History Last Taken Unknown] melatonin 5 mg tablet 5 mg PO QHS 08/03/22 [History Last Taken Unknown] Allergy/AdvReac Type Severity Reaction Status Date / Time Penicillins [PCN] Allergy Swelling Verified 05/14/22 12:51 Family History Mother Cancer Father Heart disease Thyroid disorder Hypertension Sister Kidney disease Cancer Diabetes Brother Diabetes Surgical History H/O hernia repair History of cardiac catheterization History of esophagogastroduodenoscopy (EGD) History of incision and drainage Hx of colectomy Hx of colonoscopy Hx of heart bypass surgery S/P cervical spinal fusion S/P right knee arthroscopy Social History Smoking Status: Former smoker ROS ROS Narrative 10 systems reviewed with pertinent positives as noted in the HPI above. Physical Exam Const alert and no apparent distress General Appearance: on BiPAP Nutritional Appearance: obese HEENT normocephalic and head/scalp atraumatic Eyes PERRL, EOMs intact bilaterally and conjunctivae normal Neck supple General: trachea midline Chest inspection of chest normal Resp normal respiratory effort Auscultation: diminished lung sounds; Negative for rales, rhonchi or wheezes Cardio S1 normal heart sound and S2 normal heart sound Rhythm: abnormal rhythm GI normal to inspection, nondistended, normoactive bowel sounds Extremity General Extremity: Negative for clubbing Skin General Skin Exam: venous stasis and dermatitis Neuro CN's II-XII intact bilaterally and no focal motor deficits Psych cooperative Lab / Micro Data Result Diagrams: 08/08/22 03:17 08/08/22 03:17 Labs: Laboratory Results - last 24 hr 08/04/22 04:35: Vitamin B12 288, Vitamin D 25-Hydroxy 63.4 08/04/22 04:35: PTH Intact < 6.3 L 08/05/22 21:45: PTH Intact Cancelled 08/05/22 21:45: Vitamin D 25-Hydroxy Cancelled 08/06/22 15:34: POC Glucose 85 08/06/22 15:50: Random Vancomycin 21.1 H 08/06/22 18:46: POC Glucose 97 08/06/22 19:14: Magnesium 2.1 08/06/22 20:21: POC Glucose 103 08/07/22 05:24: WBC 14.2 H, RBC 3.29 L, Hgb 8.9 L, Hct 28.9 L, MCV 87.8, MCH 27.1, MCHC 30.8 L, RDW Std Deviation 53.8 H, RDW Coeff of Trev 16.8 H, Plt Count 452 H, MPV 8.7, Immature Gran % (Auto) 0.800, Neut % (Auto) 86.2 H, Lymph % (Auto) 4.6 L, [place] % (Auto) 7.0, Eos % (Auto) 0.9, Baso % (Auto) 0.5, Absolute Neuts (auto) 12.3 H, Absolute Lymphs (auto) 0.65 L, Nucleated RBC % 0 08/07/22 05:24: Sodium 141, Potassium 3.6, Chloride 110 H, Carbon Dioxide 24.0, Anion Gap 7, BUN 31 H, Creatinine 1.00, Estim Creat Clear Calc 82.20, Est GFR (MDRD) Af Amer 96, Est GFR (MDRD) Non-Af 79, BUN/Creatinine Ratio 31.1 H, Glucose 104, Calcium 10.9 H, Total Bilirubin 0.40, AST 26, ALT 16, Alkaline Phosphatase 77, Total Protein 7.8, Albumin 1.8 L, Globulin 6.0 H, Albumin/Globulin Ratio 0.3 L Micro: Microbiology 08/03/22 20:10 Urine, Clean Catch Urine Culture - Final Culture exhibits no growth. 08/04/22 00:01 Sputum, Expectorated/Coughed Gram Stain - Final 08/04/22 00:01 Sputum, Expectorated/Coughed Respiratory Culture - Preliminary Meth. resistant Staph. aureus 08/03/22 18:55 Blood Culture (Wb) - Left Forearm Blood Culture - Preliminary No growth in 48 hours. 08/03/22 19:05 Blood Culture (Wb) - Left Wrist Blood Culture - Preliminary No growth in 48 hours. ABG Data ABG results: ABG 08/06/22 22:19 Specimen Type ISAURA VBG pH 7.35 VBG pO2 30 VBG HCO3 25 VBG Total CO2 26 VBG O2 Sat (Calc) 54 VBG Base Excess -1 POC Mix VBG pCO2 Pt Tmp 45.0 Radiology Impression Chest X-Ray 08/06/22 21:42 IMPRESSION: 1. Cardiomegaly and interstitial edema. 2. Left basilar atelectasis versus infiltrate and/or small left pleural effusion. Electronically Signed: Damien Pierre DO at 23:13 EDT , Charges/Coding Visit Charges Inpatient E&M: 05556 Init Hosp L3
--- NOTE | 2022-08-07 08:20 | RAD_ITS ---
EXAM: XR CHEST, 1 VIEW CLINICAL INDICATION: Dyspnea TECHNIQUE: Frontal view of the chest. COMPARISON: XR Chest dated 08/06/2022 FINDINGS: LUNGS AND PLEURAL SPACES: Improving central pulmonary edema. Mild residual bibasilar atelectasis. No pneumothorax. No effusion. HEART: Stable borderline cardiomegaly. Surgical changes of coronary artery bypass graft (CABG). MEDIASTINUM: No mediastinal or hilar mass. BONES/JOINTS: No acute abnormality. RAD/Chest 1 View (Portable) IMPRESSION: Resolving pulmonary edema. Electronically Signed: Pawel Mcwilliams MD at 9:20 EDT ,
[2022-08-07 08:27] LABS: Bedside Glucose 94 mg/dL (74-106)
[2022-08-07 08:50] LABS: Allen Test Positive; Base Excess 0 mmol/L (-2 to +2); Bicarbonate 24.8 mmol/L (22-26); Blood Gas Specimen Type ART; O2 Delivery Device Cannula; PO2 104 mmHG (75-100); SITE L Radial; SO2 98 % (95-99); Total Carbon Dioxide 26 mmol/L; pH 7.38 (7.35-7.45)
--- NOTE | 2022-08-07 08:51 | NURSING ---
08/07/22- 799 DUE TO DISTRESS OF PT NO TELE STRIP MEASURING WAS PERFORMED. PT WAS VISUALLY A. FIB ON THE MONITOR.
--- NOTE | 2022-08-07 08:54 | NURSING ---
08/07/22@0815- REPORT CALLED TO MARISELA LOVE ON ICU WHO WILL BE CONTINUING CARE OF THE PT.
--- NOTE | 2022-08-07 08:56 | NURSING ---
08/07/22@ 0840- PT TAKEN TO ICU ROOM 202. [facility] SENT WITH PT. PT NOW RESPONDING TO SIMPLE QUESTIONS AND IS ALERT AND ORIENTED TO SELF AND PLACE. IV ACCESS LOST PRIOR TO TRANSPORTATION, [facility] AND DR. COOK NOTIFIED.
--- NOTE | 2022-08-07 11:35 | CON.PCM.OR_ITS ---
HPI Consult Data Date of Consult: 08/07/22 HPI Narrative Reason for Consultation: Tremors, spastic movements of bilateral upper and lower extremities HPI Narrative: The patient is a 66-year-old male who is currently admitted for multiple medical issues. He initially presented to the ER with respiratory difficulty. He was subsequently admitted and found to have encephalopathy. He is currently in the ICU. He has been having tremors and spastic movements of the bilateral upper and lower extremities. [facility]ospine has been consulted for evaluation. He is currently lying in bed on a CPAP machine. He is lethargic. He opens his eyes t o stimulus but does not answer questions or follow commands. He has persistent spastic twitching movements of the bilateral upper and lower extremities. [facility] Medical History Anxiety Atrial fibrillation Back pain [facility] Cardiology follow-up encounter CHF (congestive heart failure) Coronary artery disease involving coronary bypass graft Depression Dietary restriction Difficulty chewing Former smoker Graves disease High cholesterol History of atrial fibrillation History of echocardiogram History of edema History of heart attack History of kidney stones History of pain when walking History of renal disease History of stomach ulcers History of stress test Hypertension Ischemic cardiomyopathy Neuropathy Nocturia Rheumatoid arthritis Shortness of breath on exertion Walker as ambulation aid Home Medications atorvastatin 80 mg tablet 80 mg PO QHS CHOLESTEROL 07/05/19 [History Last Taken 05/13/22] bupropion HCl 100 mg tablet 150 mg PO TID DEPRESSION 07/05/19 [History Last Taken 05/14/22] buspirone 15 mg tablet 15 mg PO BID ANXIETY 07/05/19 [History Last Taken 05/14/22] metoprolol succinate 200 mg tablet,extended release 24 hr 200 mg PO DAILY BLOOD PRESSURE 07/05/19 [History Last Taken 05/14/22] multivitamin with minerals 1 ea PO DAILY HEALTH MAINTENANCE 07/05/19 [History Last Taken 05/14/22] nitroglycerin 0.4 mg sublingual tablet 0.4 mg sublingual Q5M PRN CHEST PAIN 07/05/19 [History Last Taken Unknown] azathioprine 50 mg tablet 50 mg PO BID RHEUMATOID ARTHRITIS 11/29/21 [History Last Taken 05/14/22] fenofibrate 54 mg tablet 54 mg PO DAILY CHOLESTEROL 11/29/21 [History Last Taken 05/14/22] lisinopril 5 mg tablet 5 mg PO DAILY BLOOD PRESSURE 11/29/21 [History Last Taken 05/14/22] pregabalin 50 mg capsule (Lyrica) 50 mg PO BID PAIN 11/29/21 [History Last Taken 05/14/22] rivaroxaban 20 mg tablet (Xarelto) 20 mg PO QPM BLOOD THINNER 11/29/21 [History Last Taken 05/13/22] sulfasalazine 500 mg tablet 1,000 mg PO DAILY RHEUMATOID ARTHRITIS 11/29/21 [History Last Taken 05/13/22 12:00] torsemide 20 mg tablet 20 mg PO DAILY CONGESTIVE HEART FAILURE 11/29/21 [History Last Taken 05/14/22] cholecalciferol (vitamin D3) 50 mcg (2,000 unit) tablet 2,000 mcg PO DAILY SUPPLEMENT 04/22/22 [History Last Taken 05/14/22] simethicone 125 mg chewable tablet 125 mg PO BID GAS RELIEF 04/22/22 [History Last Taken 05/14/22] spironolactone 25 mg tablet 25 mg PO DAILYCM CONGESTIVE HEART FAILURE 04/22/22 [History Last Taken 05/13/22 12:00] bisacodyl 10 mg rectal suppository 10 mg NH DAILY PRN CONSTIPATION 05/14/22 [History Last Taken Unknown] citalopram 20 mg tablet 20 mg PO DAILY DEPRESSION 05/14/22 [History Last Taken 05/14/22] diltiazem HCl 120 mg capsule,extended release 24 hr (Cardizem CD) 120 mg PO QHS BLOOD PRESSURE 05/14/22 [History Last Taken 05/13/22] ferrous sulfate 325 mg (65 mg iron) tablet 325 mg PO BIDCM SUPPLEMENT 05/14/22 [History Last Taken 05/14/22 08:00] omeprazole 20 mg capsule,delayed release 20 mg PO DAILY ACID REFLUX 05/14/22 [History Last Taken 05/14/22] tramadol 50 mg tablet 50 mg PO Q8H PRN PAIN 05/14/22 [History Last Taken Unknown] melatonin 5 mg tablet 5 mg PO QHS 08/03/22 [History Last Taken Unknown] Allergy/AdvReac Type Severity Reaction Status Date / Time Penicillins [PCN] Allergy Swelling Verified 05/14/22 12:51 Family History Mother Cancer Father Heart disease Thyroid disorder Hypertension Sister Kidney disease Cancer Diabetes Brother Diabetes Surgical History H/O hernia repair History of cardiac catheterization History of esophagogastroduodenoscopy (EGD) History of incision and drainage Hx of colectomy Hx of colonoscopy Hx of heart bypass surgery S/P cervical spinal fusion S/P right knee arthroscopy Social History Smoking Status: Former smoker Vital Signs Vital Signs Vital Signs: 08/06/22 15:34 08/06/22 15:48 08/06/22 20:23 Temperature 98.1 F 97.5 F L Temperature Source Oral Axillary Pulse Rate 105 H 106 H Pulse Strength Respiratory Rate 18 22 H Respiratory Pattern Blood Pressure 94/66 103/72 Blood Pressure [BP] Blood Pressure Mean 75 82 Blood Pressure Mean [BP] Blood Pressure Source Monitor Monitor Blood Pressure Source [BP] Blood Pressure Position Semi-Fowlers Supine Blood Pressure Position [BP] Blood Pressure Location Left Arm Left Arm Blood Pressure Location [BP] Pulse Ox 92 94 Oxygen Delivery Method Room Air Nasal Cannula Nasal Cannula Oxygen Flow Rate (L/min) 2 2 Fraction of Inspired Oxygen (FIO2) 08/06/22 20:33 08/06/22 22:02 08/06/22 22:00 Temperature 97.8 F Temperature Source Axillary Pulse Rate 95 Pulse Strength Weak (1+) Respiratory Rate 24 H Respiratory Pattern Blood Pressure 116/69 Blood Pressure [BP] Blood Pressure Mean 84 Blood Pressure Mean [BP] Blood Pressure Source Monitor Blood Pressure Source [BP] Blood Pressure Position Supine Blood Pressure Position [BP] Blood Pressure Location Left Arm Blood Pressure Location [BP] Pulse Ox 95 Oxygen Delivery Method Nasal Cannula Nasal Cannula Oxygen Flow Rate (L/min) 2 2 Fraction of Inspired Oxygen (FIO2) 08/06/22 23:00 08/07/22 00:34 08/07/22 00:45 Temperature 97.4 F L Temperature Source Axillary Pulse Rate 103 H Pulse Strength Respiratory Rate 27 H 24 H Respiratory Pattern Blood Pressure 113/75 Blood Pressure [BP] Blood Pressure Mean 87 Blood Pressure Mean [BP] Blood Pressure Source Monitor Blood Pressure Source [BP] Blood Pressure Position Supine Blood Pressure Position [BP] Blood Pressure Location Right Arm Blood Pressure Location [BP] Pulse Ox 89 98 95 Oxygen Delivery Method Nasal Cannula Bi-pap Nasal Cannula Oxygen Flow Rate (L/min) 5 5 Fraction of Inspired Oxygen (FIO2) 30 30 08/07/22 00:39 08/07/22 02:38 08/07/22 04:00 Temperature 98.2 F 97.9 F Temperature Source Axillary Axillary Pulse Rate 98 84 91 Pulse Strength Respiratory Rate 24 H 20 H 24 H Respiratory Pattern Blood Pressure 104/69 86/60 L Blood Pressure [BP] 97/61 Blood Pressure Mean 80 68 Blood Pressure Mean [BP] 73 Blood Pressure Source Monitor Monitor Blood Pressure Source [BP] Monitor Blood Pressure Position Supine Supine Blood Pressure Position [BP] Supine Blood Pressure Location Left Arm Left Arm Blood Pressure Location [BP] Left Arm Pulse Ox 99 98 98 Oxygen Delivery Method Nasal Cannula Nasal Cannula Nasal Cannula Oxygen Flow Rate (L/min) 5 5 3 Fraction of Inspired Oxygen (FIO2) 08/07/22 04:25 08/07/22 05:33 08/07/22 06:16 Temperature 99.2 F H 98.7 F Temperature Source Axillary Axillary Pulse Rate 71 97 94 Pulse Strength Respiratory Rate 22 H 22 H 21 H Respiratory Pattern Blood Pressure 98/67 104/66 Blood Pressure [BP] 107/86 H Blood Pressure Mean 77 78 Blood Pressure Mean [BP] 93 Blood Pressure Source Monitor Monitor Blood Pressure Source [BP] Monitor Blood Pressure Position Supine Supine Blood Pressure Position [BP] Supine Blood Pressure Location Left Arm Left Arm Blood Pressure Location [BP] Left Arm Pulse Ox 97 99 91 Oxygen Delivery Method Nasal Cannula Nasal Cannula Nasal Cannula Oxygen Flow Rate (L/min) 3 5 5 Fraction of Inspired Oxygen (FIO2) 08/07/22 06:53 08/07/22 09:05 08/07/22 08:30 Temperature 97.9 F Temperature Source Axillary Pulse Rate 102 H 100 99 Pulse Strength Respiratory Rate 20 H 30 H 26 H Respiratory Pattern Tachypnea Tachypnea Blood Pressure 103/60 Blood Pressure [BP] Blood Pressure Mean 74 Blood Pressure Mean [BP] Blood Pressure Source Monitor Blood Pressure Source [BP] Blood Pressure Position Supine Blood Pressure Position [BP] Blood Pressure Location Left Arm Blood Pressure Location [BP] Pulse Ox 98 92 99 Oxygen Delivery Method Venturi Mask Oxygen Flow Rate (L/min) Fraction of Inspired Oxygen (FIO2) 30 40 40 08/07/22 07:00 08/07/22 08:00 08/07/22 10:47 Temperature Temperature Source Pulse Rate 106 H 99 102 H Pulse Strength Respiratory Rate 24 H 25 H 35 H Respiratory Pattern Tachypnea Blood Pressure Blood Pressure [BP] 115/67 105/69 Blood Pressure Mean Blood Pressure Mean [BP] 83 81 Blood Pressure Source Blood Pressure Source [BP] Monitor Monitor Blood Pressure Position Blood Pressure Position [BP] Semi-Fowlers Semi-Fowlers Blood Pressure Location Blood Pressure Location [BP] Left Arm Left Arm Pulse Ox 99 98 93 Oxygen Delivery Method Nasal Cannula Nasal Cannula Oxygen Flow Rate (L/min) 5 5 Fraction of Inspired Oxygen (FIO2) 35 08/07/22 10:00 08/07/22 10:00 08/07/22 09:00 Temperature Temperature Source Pulse Rate 100 Pulse Strength Weak (1+) Respiratory Rate 24 H Respiratory Pattern Blood Pressure Blood Pressure [BP] 103/79 Blood Pressure Mean Blood Pressure Mean [BP] 87 Blood Pressure Source Blood Pressure Source [BP] Monitor Blood Pressure Position Blood Pressure Position [BP] Semi-Fowlers Blood Pressure Location Blood Pressure Location [BP] Left Arm Pulse Ox 40 100 Oxygen Delivery Method Bi-pap Bi-pap Oxygen Flow Rate (L/min) Fraction of Inspired Oxygen (FIO2) 30 40 08/07/22 10:00 08/07/22 11:00 Temperature Temperature Source Pulse Rate 122 H 98 Pulse Strength Respiratory Rate 28 H 25 H Respiratory Pattern Blood Pressure Blood Pressure [BP] 100/69 110/71 Blood Pressure Mean Blood Pressure Mean [BP] 79 84 Blood Pressure Source Blood Pressure Source [BP] Monitor Monitor Blood Pressure Position Blood Pressure Position [BP] Semi-Fowlers Supine Blood Pressure Location Blood Pressure Location [BP] Left Arm Left Arm Pulse Ox 96 98 Oxygen Delivery Method Bi-pap Mechanical Ventilator Oxygen Flow Rate (L/min) Fraction of Inspired Oxygen (FIO2) 40 40 Weight Weight: 297 lb 2.93 oz Body Mass Index (BMI) 38.1 Physical Exam Narrative The patient is lying in bed on CPAP. He is lethargic but does open his eyes to physical stimulus. He does not answer questions or follow commands appropriately. He has continuous spastic twitching movements of the bilateral arms and legs and reflexes and upper motor neuron signs are difficult to assess. Physical exam shows good muscle tone in all 4 extremities. Const Orientation / Consciousness: lethargic Nutritional Appearance: overweight HEENT normocephalic and head/scalp atraumatic Eyes EOMs intact bilaterally and conjunctivae normal Neck full ROM General: normal visual inspection Cardio peripheral pulses 2+ throughout GI soft to palpation, non-tender and non-distended Back/Spine Cervical Spine: cervical ROM normal Thoracic Spine / Upper Back: normal to inspection Lumbar Spine / Lower Back: normal to inspection Extremity normal capillary refill Neuro moves all extremities Motor Exam: muscle tone normal throughout Lab / Micro Data Result Diagrams: 08/07/22 05:24 08/07/22 05:24 Labs: Laboratory Results - last 24 hr 08/06/22 15:34: POC Glucose 85 08/06/22 15:50: Random Vancomycin 21.1 H 08/06/22 18:46: POC Glucose 97 08/06/22 19:14: Magnesium 2.1 08/06/22 20:21: POC Glucose 103 08/07/22 05:24: WBC 14.2 H, RBC 3.29 L, Hgb 8.9 L, Hct 28.9 L, MCV 87.8, MCH 27.1, MCHC 30.8 L, RDW Std Deviation 53.8 H, RDW Coeff of Trev 16.8 H, Plt Count 452 H, MPV 8.7, Immature Gran % (Auto) 0.800, Neut % (Auto) 86.2 H, Lymph % (A uto) 4.6 L, Bond % (Auto) 7.0, Eos % (Auto) 0.9, Baso % (Auto) 0.5, Absolute Neuts (auto) 12.3 H, Absolute Lymphs (auto) 0.65 L, Nucleated RBC % 0 08/07/22 05:24: Sodium 141, Potassium 3.6, Chloride 110 H, Carbon Dioxide 24.0, Anion Gap 7, BUN 31 H, Creatinine 1.00, Estim Creat Clear Calc 82.20, Est GFR (MDRD) Af Amer 96, Est GFR (MDRD) Non-Af 79, BUN/Creatinine Ratio 31.1 H, Glucose 104, Calcium 10.9 H, Total Bilirubin 0.40, AST 26, ALT 16, Alkaline Phosphatase 77, Total Protein 7.8, Albumin 1.8 L, Globulin 6.0 H, Albumin/Globulin Ratio 0.3 L 08/07/22 07:44: POC Glucose 94 Micro: Microbiology 08/04/22 00:01 Sputum, Expectorated/Coughed Gram Stain - Final 08/04/22 00:01 Sputum, Expectorated/Coughed Respiratory Culture - Final Meth. resistant Staph. aureus 08/03/22 20:10 Urine, Clean Catch Urine Culture - Final Culture exhibits no growth. 08/03/22 18:55 Blood Culture (Wb) - Left Forearm Blood Culture - Preliminary No growth in 48 hours. 08/03/22 19:05 Blood Culture (Wb) - Left Wrist Blood Culture - Preliminary No growth in 48 hours. ABG Data ABG results: ABG 08/06/22 08/07/22 22:19 08:43 Specimen Type ISAURA ART Sample Site L Radial pH 7.38 Bicarbonate Actual 24.8 Total CO2 26 Base Excess 0 O2 Saturation 98 ABG pCO2 42.0 ABG pO2 104 H William Test Positive VBG pH 7.35 VBG pO2 30 VBG HCO3 25 VBG Total CO2 26 VBG O2 Sat (Calc) 54 VBG Base Excess -1 POC Mix VBG pCO2 Pt Tmp 45.0 O2 Delivery Device Cannula Liter Flow 5.0 Radiology Impression Chest X-Ray 08/06/22 21:42 IMPRESSION: 1. Cardiomegaly and interstitial edema. 2. Left basilar atelectasis versus infiltrate and/or small left pleural effusion. Electronically Signed: Damien Pierre DO at 23:13 EDT , Chest X-Ray 08/07/22 08:20 IMPRESSION: Resolving pulmonary edema. Electronically Signed: Pawel Mcwilliams MD at 9:20 EDT , Assessment & Plan Assessment/Plan (1) Cervical spondylosis: PLAN: The patient was seen and examined. Imaging of the brain so far has been negative and he is being managed by neurology. CT of the cervical and thoracic spine dated 08/01/2022 shows degenerative changes at multiple levels with loss of disc height, disc osteophyte complex formation and facet arthrosis. I do recommend further imaging including cervical, thoracic, and lumbar MRI to rule out any significant central stenosis or myelopathy. The studies have been ordered. I will review them once they are completed. In the meantime I recomm end continued management by neurology and internal medicine. (2) Thoracic spondylosis: (3) Lumbar spondylosis:
[2022-08-07] MEDS: Furosemide 40 MG/4 ML Vial IV ×2 (12:03→21:08)
[2022-08-07 12:06] LABS: CPK Total, Creatine Kinase 103 U/L (39-308)
[2022-08-07 12:09] LABS: Vitamin D 1,25-Dihydroxy 11.8 pg/mL (24.8-81.5)
--- NOTE | 2022-08-07 13:18 | PCM.PN.ID ---
Physical Exam Narrative Moved to icu with worsened tremors and apneic episode. No fever. Const Orientation / Consciousness: lethargic Resp normal air movement and clear to auscultation bilaterally Cardio regular rate and regular rhythm GI soft to palpation, non-tender and non-distended Extremity General Extremity: edema Skin no rashes or lesions noted ID ID: Route of nutrition/ use of supplements: [] Nutritional Intake: [] IV Site: [] Smith Catheter: [] Assessment & Plan Assessment/Plan (1) Pneumonia: QUALIFIERS: Pneumonia type: due to unspecified organism Laterality: left Lung location: lower lobe of lung Qualified Code(s): J18.9 - Pneumonia, unspecified organism PLAN: MRSA pneumonia - cont with vanc tremors, encephalopathy - Neuro following. Will cover for meningitis at this point, will add ceftriaxone and iv acyclovir. Would recommend LP if possible. Will follow, d/w nursing
--- NOTE | 2022-08-07 13:32 | CASEMGMT ---
Patient has a Healthcare Power of Security Control Assessor and Healthcare Living Will on file at [facility]. Patient's son Jose is his Healthcare Power of Security Control Assessor. Ashley Ochoa [employer]
[2022-08-07] MEDS: ACYCLOVIR IV ×2 (14:20→21:45)
[2022-08-07] MEDS: DEXTROSE 5% IV ×2 (14:20→21:45)
[2022-08-07] MEDS: dilTIAZem 25 MG/5 ML Vial 10 MG IV BOLUS ×2 (20:12→23:49)
[2022-08-07] MEDS: dilTIAZem CD 120 MG Capsule PO (22:18)
[2022-08-08] VITALS (38 sets, daily range): BP systolic 70–140; BP diastolic 55–90; PULSE 87–143; RESP 12–33; TEMP 37–37.6; O2SAT 86–99; BMI 37.7
[2022-08-08 03:27] LABS: Absolute Lymphocyte Count 0.74 X10^3/uL (0.83-4.51); Absolute Neutrophil Count 10.3 X10^3/uL (2.0-7.7); Basophil# 0.05 X10^3/uL; Basophil% 0.4 % (0-1); Eosinophil# 0.33 X10^3/uL; Eosinophils% 2.7 % (0-5); Hematocrit 26.1 % (40-54); Hemoglobin 8.3 g/dL (13.0-16.5); Lymphocyte # 0.74 X10^3/ul (0.83-4.51); Mean Corp Hgb Conc 31.8 g/dL (32-36); Mean Corpuscular Hgb 27.4 pg (27.0-32.0); Mean Corpuscular Volume 86.1 fL (80-94); Mean Platelet Vol. 8.8 fl (6.2-12.0); Monocyte% 7.3 % (0-10); NRBC Flagged by Analyzer 0.3 % (0-5); Neutrophil # 10.29 X10^3/uL (2.7-7.7); Platelet Count 469 K/mm3 (150-450); RBC Distribution Width CV 17.1 % (11.6-14.6); RBC Distribution Width SD 53.1 fl (35.1-43.9); Red Blood Count 3.03 M/mm3 (4.6-6.2); White Blood Count 12.4 K/mm3 (4.4-11.0)
[2022-08-08 03:52] LABS: ALB/GLOB Ratio 0.3 RATIO (0.9-2.4); AST(SGOT) 20 U/L (15-37); Alanine Aminotransfer ALT/SGPT 11 U/L (16-61); Albumin, Serum 1.7 g/dL (3.2-5.0); Alkaline Phosphatase 73 U/L (45-117); Anion Gap 7 (5-15); BUN 28 mg/dL (7-18); BUN/Creat Ratio 26.2 RATIO (10-20); Chloride 111 mmol/L (98-107); Creatinine, Serum 1.07 mg/dL (0.70-1.30); EST Glomerular Filtration Rate 73 mL/min (>60); Est Glom Filt Rate - Afr Amer 88 mL/min (>60); Estimated Creatinine Clearance 76.82 ml/min; Globulin 5.8 g/dL (2.2-4.2); Glucose 110 mg/dL (74-106); Potassium 3.2 mmol/L (3.5-5.1); Protein, Total 7.5 g/dL (6.4-8.2); Sodium Level 144 mmol/L (136-145)
[2022-08-08] MEDS: ACYCLOVIR IV ×3 (05:37→21:15)
[2022-08-08] MEDS: DEXTROSE 5% IV ×3 (05:37→21:15)
--- NOTE | 2022-08-08 06:21 | PCM.HP.STD ---
HPI - General General Date of Admission: 08/20/22 Date of Service: 08/21/22 Chief Complaint: hx of hypotension HPI Narrative DEMIAN NELSON, is a 66 M who presents from [facility] after episode of hypotension and reported fever. BP was 70/50 and fever was reported to be 101. The patient arrived with stable vitals and temperature of 97.7. The patient has no problems breathing at this time. He did feel a little off earlier today, but has no change in cough. The patient's biggest complaint is his ongoing arthritic pain and inability to feel comfortable in one position. He is on Tylenol at [facility]. Was given Rocephin and Azithromycin given a history of pneumonia. The patient was admitted for further observation due to an episode of hypotension and concern he may have further decompensation. He was recently hospitalized here for a long period of time CXR did not have any lobar consolidation. He does have chronic phlegm production and states no worsening in breathing or sputum production in last 3-7 days. He has known tremor at baseline. [facility] Medical History Anxiety Atrial fibrillation Back pain [facility] Cardiology follow-up encounter CHF (congestive heart failure) Coronary artery disease involving coronary bypass graft Depression Dietary restriction Difficulty chewing Former smoker Graves disease High cholesterol History of atrial fibrillation History of echocardiogram History of edema History of heart attack History of kidney stones History of pain when walking History of renal disease History of stomach ulcers History of stress test Hypertension Ischemic cardiomyopathy Neuropathy Nocturia Rheumatoid arthritis Shortness of breath on exertion Walker as ambulation aid Home Medications buspirone 15 mg tablet 15 mg PO BID ANXIETY 07/05/19 [History Last Taken 05/14/22] metoprolol succinate 200 mg tablet,extended release 24 hr 200 mg PO DAILY BLOOD PRESSURE 07/05/19 [History Last Taken 05/14/22] multivitamin with minerals 1 ea PO DAILY HEALTH MAINTENANCE 07/05/19 [History Last Taken 05/14/22] nitroglycerin 0.4 mg sublingual tablet 0.4 mg sublingual Q5M PRN CHEST PAIN 07/05/19 [History Last Taken Unknown] azathioprine 50 mg tablet 50 mg PO BID RHEUMATOID ARTHRITIS 11/29/21 [History Last Taken 05/14/22] fenofibrate 54 mg tablet 54 mg PO DAILY CHOLESTEROL 11/29/21 [History Last Taken 05/14/22] lisinopril 5 mg tablet 5 mg PO DAILY BLOOD PRESSURE 11/29/21 [History Last Taken 05/14/22] pregabalin 50 mg capsule (Lyrica) 50 mg PO BID PAIN 11/29/21 [History Last Taken 05/14/22] rivaroxaban 20 mg tablet (Xarelto) 20 mg PO QPM BLOOD THINNER 11/29/21 [History Last Taken 05/13/22] sulfasalazine 500 mg tablet 1,000 mg PO DAILY RHEUMATOID ARTHRITIS 11/29/21 [History Last Taken 05/13/22 12:00] cholecalciferol (vitamin D3) 50 mcg (2,000 unit) tablet 2,000 mcg PO DAILY SUPPLEMENT 04/22/22 [History Last Taken 05/14/22] simethicone 125 mg chewable tablet 125 mg PO BID GAS RELIEF 04/22/22 [History Last Taken 05/14/22] spironolactone 25 mg tablet 25 mg PO DAILYCM CONGESTIVE HEART FAILURE 04/22/22 [History Last Taken 05/13/22 12:00] bisacodyl 10 mg rectal suppository 10 mg RI DAILY PRN CONSTIPATION 05/14/22 [History Last Taken Unknown] citalopram 20 mg tablet 20 mg PO DAILY DEPRESSION 05/14/22 [History Last Taken 05/14/22] ferrous sulfate 325 mg (65 mg iron) tablet 325 mg PO BIDCM SUPPLEMENT 05/14/22 [History Last Taken 05/14/22 08:00] omeprazole 20 mg capsule,delayed release 20 mg PO DAILY ACID REFLUX 05/14/22 [History Last Taken 05/14/22] melatonin 5 mg tablet 5 mg PO QHS 08/03/22 [History Last Taken Unknown] atorvastatin 40 mg tablet 40 mg PO QHS 30 days #30 tabs 08/13/22 [Rx Last Taken Unknown] diltiazem HCl 120 mg capsule,extended release 24 hr 120 mg PO Q12 30 days #0 caps 08/13/22 [Rx Last Taken Unknown] torsemide 20 mg tablet 40 mg PO DAILY CONGESTIVE HEART FAILURE 30 days #0 tabs 08/13/22 [Rx Last Taken 05/14/22] Allergy/AdvReac Type Severity Reaction Status Date / Time Penicillins [PCN] Allergy Swelling Verified 05/14/22 12:51 Family History Mother Cancer Father Heart disease Thyroid disorder Hypertension Sister Kidney disease Cancer Diabetes Brother Diabetes Surgical History H/O hernia repair History of cardiac catheterization History of esophagogastroduodenoscopy (EGD) History of incision and drainage Hx of colectomy Hx of colonoscopy Hx of heart bypass surgery S/P cervical spinal fusion S/P right knee arthroscopy Social History Smoking Status: Former smoker Vital Signs Vital Signs Vital Signs: 08/07/22 06:53 08/07/22 09:05 08/07/22 08:30 Temperature 97.9 F Temperature Source Axillary Pulse Rate 102 H 100 99 Pulse Strength Respiratory Rate 20 H 30 H 26 H Respiratory Effort Respiratory Depth Respiratory Pattern Tachypnea Tachypnea Blood Pressure 103/60 Blood Pressure [BP] Blood Pressure Mean 74 Blood Pressure Mean [BP] Blood Pressure Source Monitor Blood Pressure Source [BP] Blood Pressure Position Supine Blood Pressure Position [BP] Blood Pressure Location Left Arm Blood Pressure Location [BP] Pulse Ox 98 92 99 Oxygen Delivery Method Venturi Mask Oxygen Flow Rate (L/min) Fraction of Inspired Oxygen (FIO2) 30 40 40 08/07/22 07:00 08/07/22 08:00 08/07/22 10:47 Temperature Temperature Source Pulse Rate 106 H 99 102 H Pulse Strength Respiratory Rate 24 H 25 H 35 H Respiratory Effort Respiratory Depth Respiratory Pattern Tachypnea Blood Pressure Blood Pressure [BP] 115/67 105/69 Blood Pressure Mean Blood Pressure Mean [BP] 83 81 Blood Pressure Source Blood Pressure Source [BP] Monitor Monitor Blood Pressure Position Blood Pressure Position [BP] Semi-Fowlers Semi-Fowlers Blood Pressure Location Blood Pressure Location [BP] Left Arm Left Arm Pulse Ox 99 98 93 Oxygen Delivery Method Nasal Cannula Nasal Cannula Oxygen Flow Rate (L/min) 5 5 Fraction of Inspired Oxygen (FIO2) 35 08/07/22 10:00 08/07/22 10:00 08/07/22 09:00 Temperature Temperature Source Pulse Rate 100 Pulse Strength Weak (1+) Respiratory Rate 24 H Respiratory Effort Respiratory Depth Respiratory Pattern Blood Pressure Blood Pressure [BP] 103/79 Blood Pressure Mean Blood Pressure Mean [BP] 87 Blood Pressure Source Blood Pressure Source [BP] Monitor Blood Pressure Position Blood Pressure Position [BP] Semi-Fowlers Blood Pressure Location Blood Pressure Location [BP] Left Arm Pulse Ox 98 100 Oxygen Delivery Method Bi-pap Bi-pap Oxygen Flow Rate (L/min) Fraction of Inspired Oxygen (FIO2) 30 40 08/07/22 10:00 08/07/22 11:00 08/07/22 12:00 Temperature 98.5 F Temperature Source Core Pulse Rate 122 H 98 110 H Pulse Strength Respiratory Rate 28 H 25 H 22 H Respiratory Effort Respiratory Depth Respiratory Pattern Blood Pressure 122/76 H Blood Pressure [BP] 100/69 110/71 Blood Pressure Mean 91 Blood Pressure Mean [BP] 79 84 Blood Pressure Source Monitor Blood Pressure Source [BP] Monitor Monitor Blood Pressure Position Supine Blood Pressure Position [BP] Semi-Fowlers Supine Blood Pressure Location Left Arm Blood Pressure Location [BP] Left Arm Left Arm Pulse Ox 96 98 96 Oxygen Delivery Method Bi-pap Mechanical Ventilator Room Air Oxygen Flow Rate (L/min) Fraction of Inspired Oxygen (FIO2) 40 40 08/07/22 12:00 08/07/22 14:02 08/07/22 16:03 Temperature Temperature Source Pulse Rate 123 H Pulse Strength Respiratory Rate 32 H Respiratory Effort Respiratory Depth Respiratory Pattern Tachypnea Blood Pressure Blood Pressure [BP] Blood Pressure Mean Blood Pressure Mean [BP] Blood Pressure Source Blood Pressure Source [BP] Blood Pressure Position Blood Pressure Position [BP] Blood Pressure Location Blood Pressure Location [BP] Pulse Ox 99 94 99 Oxygen Delivery Method Bi-pap Bi-pap Oxygen Flow Rate (L/min) Fraction of Inspired Oxygen (FIO2) 30 30 30 08/07/22 17:22 08/07/22 19:44 08/07/22 19:00 Temperature 98.9 F Temperature Source Core Pulse Rate 120 H 118 H Pulse Strength Weak (1+) Respiratory Rate 38 H 25 H Respiratory Effort Respiratory Depth Respiratory Pattern Tachypnea Blood Pressure Blood Pressure [BP] 92/62 Blood Pressure Mean Blood Pressure Mean [BP] 72 Blood Pressure Source Blood Pressure Source [BP] Monitor Blood Pressure Position Blood Pressure Position [BP] Semi-Fowlers Blood Pressure Location Blood Pressure Location [BP] Left Arm Pulse Ox 96 94 Oxygen Delivery Method Bi-pap Oxygen Flow Rate (L/min) Fraction of Inspired Oxygen (FIO2) 30 30 08/07/22 20:00 08/07/22 20:00 08/07/22 19:58 Temperature 98.9 F Temperature Source Core Pulse Rate 145 H 166 H Pulse Strength Respiratory Rate 28 H Respiratory Effort Normal Non-Labored Respiratory Depth Normal Respiratory Pattern Normal Blood Pressure Blood Pressure [BP] 107/67 Blood Pressure Mean Blood Pressure Mean [BP] 80 Blood Pressure Source Blood Pressure Source [BP] Monitor Blood Pressure Position Blood Pressure Position [BP] Semi-Fowlers Blood Pressure Location Blood Pressure Location [BP] Left Arm Pulse Ox 94 Oxygen Delivery Method Bi-pap Bi-pap Oxygen Flow Rate (L/min) Fraction of Inspired Oxygen (FIO2) 30 30 08/07/22 20:34 08/07/22 21:00 08/07/22 22:00 Temperature 98.8 F 98.8 F Temperature Source Core Core Pulse Rate 131 H 122 H 146 H Pulse Strength Respiratory Rate 28 H 30 H 31 H Respiratory Effort Respiratory Depth Respiratory Pattern Tachypnea Blood Pressure Blood Pressure [BP] 107/56 L 109/95 H Blood Pressure Mean Blood Pressure Mean [BP] 73 99 Blood Pressure Source Blood Pressure Source [BP] Monitor Monitor Blood Pressure Position Blood Pressure Position [BP] Semi-Fowlers Semi-Fowlers Blood Pressure Location Blood Pressure Location [BP] Left Arm Left Arm Pulse Ox 96 95 95 Oxygen Delivery Method Bi-pap Bi-pap Oxygen Flow Rate (L/min) Fraction of Inspired Oxygen (FIO2) 30 30 30 08/07/22 23:00 08/07/22 23:46 08/08/22 00:00 Temperature 98.9 F 99.1 F Temperature Source Core Core Pulse Rate 120 H 141 H 126 H Pulse Strength Respiratory Rate 24 H 31 H 22 H Respiratory Effort Respiratory Depth Respiratory Pattern Tachypnea Blood Pressure 111/73 Blood Pressure [BP] 118/66 Blood Pressure Mean 85 Blood Pressure Mean [BP] 83 Blood Pressure Source Monitor Blood Pressure Source [BP] Monitor Blood Pressure Position Semi-Fowlers Blood Pressure Position [BP] Semi-Fowlers Blood Pressure Location Left Arm Blood Pressure Location [BP] Left Arm Pulse Ox 97 97 96 Oxygen Delivery Method Nasal Cannula Bi-pap Oxygen Flow Rate (L/min) 5 Fraction of Inspired Oxygen (FIO2) 30 30 08/08/22 01:00 08/07/22 23:50 08/08/22 02:05 Temperature 99.3 F H Temperature Source Core Pulse Rate 131 H 139 H Pulse Strength Respiratory Rate 26 H 27 H Respiratory Effort Normal Non-Labored Respiratory Depth Normal Respiratory Pattern Normal Blood Pressure 102/81 H Blood Pressure [BP] 113/68 Blood Pressure Mean 88 Blood Pressure Mean [BP] 83 Blood Pressure Source Monitor Blood Pressure Source [BP] Monitor Blood Pressure Position Blood Pressure Position [BP] Semi-Fowlers Blood Pressure Location Blood Pressure Location [BP] Left Arm Pulse Ox 96 97 Oxygen Delivery Method Bi-pap Bi-pap Bi-pap Oxygen Flow Rate (L/min) Fraction of Inspired Oxygen (FIO2) 30 30 30 08/08/22 02:15 08/08/22 02:00 08/08/22 02:30 Temperature 99.5 F H Temperature Source Core Pulse Rate 129 H 126 H 138 H Pulse Strength Respiratory Rate 24 H 27 H 22 H Respiratory Effort Respiratory Depth Respiratory Pattern Blood Pressure 121/74 H 99/73 Blood Pressure [BP] 102/81 H Blood Pressure Mean 89 81 Blood Pressure Mean [BP] 88 Blood Pressure Source Monitor Monitor Blood Pressure Source [BP] Monitor Blood Pressure Position Blood Pressure Position [BP] Semi-Fowlers Blood Pressure Location Blood Pressure Location [BP] Left Arm Pulse Ox 98 97 98 Oxygen Delivery Method Bi-pap Bi-pap Bi-pap Oxygen Flow Rate (L/min) Fraction of Inspired Oxygen (FIO2) 30 30 30 08/08/22 02:45 08/08/22 03:00 08/08/22 02:20 Temperature Temperature Source Pulse Rate 143 H 115 H 138 H Pulse Strength Respiratory Rate 23 H 27 H 22 H Respiratory Effort Respiratory Depth Respiratory Pattern Tachypnea Blood Pressure 112/65 99/69 Blood Pressure [BP] Blood Pressure Mean 80 79 Blood Pressure Mean [BP] Blood Pressure Source Monitor Monitor Blood Pressure Source [BP] Blood Pressure Position Blood Pressure Position [BP] Blood Pressure Location Blood Pressure Location [BP] Pulse Ox 96 97 96 Oxygen Delivery Method Bi-pap Bi-pap Oxygen Flow Rate (L/min) Fraction of Inspired Oxygen (FIO2) 30 30 30 08/08/22 03:15 08/08/22 03:30 08/08/22 03:45 Temperature 99.7 F H Temperature Source Core Pulse Rate 124 H 126 H 123 H Pulse Strength Respiratory Rate 27 H 16 23 H Respiratory Effort Respiratory Depth Respiratory Pattern Blood Pressure 110/74 135/61 H 105/90 H Blood Pressure [BP] Blood Pressure Mean 86 85 95 Blood Pressure Mean [BP] Blood Pressure Source Monitor Monitor Monitor Blood Pressure Source [BP] Blood Pressure Position Blood Pressure Position [BP] Blood Pressure Location Blood Pressure Location [BP] Pulse Ox 98 94 92 Oxygen Delivery Method Bi-pap Bi-pap Nasal Cannula Oxygen Flow Rate (L/min) 5 Fraction of Inspired Oxygen (FIO2) 30 30 08/08/22 04:00 08/08/22 04:15 08/08/22 04:00 Temperature 99.7 F H Temperature Source Core Pulse Rate 120 H 111 H Pulse Strength Respiratory Rate 20 H 30 H Respiratory Effort Normal Non-Labored Respiratory Depth Normal Respiratory Pattern Normal Blood Pressure 140/77 H 125/82 H Blood Pressure [BP] Blood Pressure Mean 98 96 Blood Pressure Mean [BP] Blood Pressure Source Monitor Monitor Blood Pressure Source [BP] Blood Pressure Position Blood Pressure Position [BP] Blood Pressure Location Blood Pressure Location [BP] Pulse Ox 94 97 Oxygen Delivery Method Bi-pap Bi-pap Bi-pap Oxygen Flow Rate (L/min) Fraction of Inspired Oxygen (FIO2) 30 30 30 08/08/22 05:00 08/08/22 04:37 08/08/22 05:58 Temperature Temperature Source Pulse Rate 128 H 103 H Pulse Strength Respiratory Rate 22 H 33 H Respiratory Effort Respiratory Depth Respiratory Pattern Tachypnea Blood Pressure 117/79 Blood Pressure [BP] Blood Pressure Mean 91 Blood Pressure Mean [BP] Blood Pressure Source Monitor Blood Pressure Source [BP] Blood Pressure Position Blood Pressure Position [BP] Blood Pressure Location Blood Pressure Location [BP] Pulse Ox 90 96 86 Oxygen Delivery Method Bi-pap Bi-pap Oxygen Flow Rate (L/min) Fraction of Inspired Oxygen (FIO2) 30 30 30 08/08/22 06:00 Temperature Temperature Source Pulse Rate 123 H Pulse Strength Respiratory Rate 24 H Respiratory Effort Respiratory Depth Respiratory Pattern Blood Pressure 130/70 H Blood Pressure [BP] Blood Pressure Mean 90 Blood Pressure Mean [BP] Blood Pressure Source Monitor Blood Pressure Source [BP] Blood Pressure Position Blood Pressure Position [BP] Blood Pressure Location Blood Pressure Location [BP] Pulse Ox 91 Oxygen Delivery Method Bi-pap Oxygen Flow Rate (L/min) Fraction of Inspired Oxygen (FIO2) 40 Weight Weight: 297 lb 2.93 oz Body Mass Index (BMI) 38.1 Physical Exam Const alert, no apparent distress and well nourished HEENT normocephalic and head/scalp atraumatic Eyes PERRL and EOMs intact bilaterally Neck no lymphadenopathy Resp normal respiratory effort Cardio regular rate and regular rhythm GI normal to inspection, nondistended, normoactive bowel sounds Extremity Extremity Narrative: Mild trace pitting edema on shins. Psych affect normal Results Medical Records Data Attestation: I reviewed the patient's medical records Lab / Micro Data Attestation: I reviewed the patient's lab results. Result Diagrams: 08/13/22 07:04 08/13/22 07:04 Labs: Laboratory Results - last 24 hr 08/05/22 21:45: Ionized Calcium 5.7 H 08/05/22 21:45: Vit D 1,25-Dihydroxy 11.8 L 08/07/22 05:24: Sodium 141, Potassium 3.6, Chloride 110 H, Carbon Dioxide 24.0, Anion Gap 7, BUN 31 H, Creatinine 1.00, Estim Creat Clear Calc 82.20, Est GFR (MDRD) Af Amer 96, Est GFR (MDRD) Non-Af 79, BUN/Creatinine Ratio 31.1 H, Glucose 104, Calcium 10.9 H, Total Bilirubin 0.40, AST 26, ALT 16, Alkaline Phosphatase 77, Total Protein 7.8, Albumin 1.8 L, Globulin 6.0 H, Albumin/Globulin Ratio 0.3 L 08/07/22 05:24: Total Creatine Kinase 103 08/07/22 07:44: POC Glucose 94 08/07/22 11:55: Ammonia 21.0 08/08/22 03:17: WBC 12.4 H, RBC 3.03 L, Hgb 8.3 L, Hct 26.1 L, MCV 86.1, MCH 27.4, MCHC 31.8 L, RDW Std Deviation 53.1 H, RDW Coeff of Trev 17.1 H, Plt Count 469 H, MPV 8.8, Immature Gran % (Auto) 0.600, Neut % (Auto) 83.0 H, Lymph % (Auto) 6.0 L, [place] % (Auto) 7.3, Eos % (Auto) 2.7, Baso % (Auto) 0.4, Absolute Neuts (auto) 10.3 H, Absolute Lymphs (auto) 0.74 L, Nucleated RBC % 0.3 08/08/22 03:17: Sodium 144, Potassium 3.2 L, Chloride 111 H, Carbon Dioxide 26.0, Anion Gap 7, BUN 28 H, Creatinine 1.07, Estim Creat Clear Calc 76.82, Est GFR (MDRD) Af Amer 88, Est GFR (MDRD) Non-Af 73, BUN/Creatinine Ratio 26.2 H, Glucose 110 H, Calcium 11.0 H, Total Bilirubin 0.30, AST 20, ALT 11 L, Alkaline Phosphatase 73, Total Protein 7.5, Albumin 1.7 L, Globulin 5.8 H, Albumin/Globulin Ratio 0.3 L Micro: Microbiology 08/04/22 00:01 Sputum, Expectorated/Coughed Gram Stain - Final 08/04/22 00:01 Sputum, Expectorated/Coughed Respiratory Culture - Final Meth. resistant Staph. aureus ABG Data ABG results: ABG 08/07/22 08:43 Specimen Type ART Sample Site L Radial pH 7.38 Bicarbonate Actual 24.8 Total CO2 26 Base Excess 0 O2 Saturation 98 ABG pCO2 42.0 ABG pO2 104 H William Test Positive O2 Delivery Device Cannula Liter Flow 5.0 Radiology Impression Chest X-Ray 08/07/22 08:20 IMPRESSION: Resolving pulmonary edema. Electronically Signed: Pawel Mcwilliams MD at 9:20 EDT , Assessment & Plan Assessment/Plan (1) Lumbar spondylosis: (2) Anemia: (3) Morbid obesity: (4) Current use of detention anticoagulation: (5) Coronary artery disease: (6) Chronic systolic (congestive) heart failure: PLAN: Plan #Hypotension episode with one reported fever. - Check procal. - No luekocytosis. stable resp function compared to prior. He has apnea at baseline. Check Flu A and B - The patients blood pressure is excellent on admission. - Will watch for fevers overnight. - Incentive spirometry - Obs overnight. At this point will cover for PNA with Rocephin and Azithromycin #Chronic Normocytic anemia/Fe deficiency anemia -Admission hemoglobin 7.9 similar to baseline. -Hold iron supplementation as inpatient. #Afib - Resume diltiazem BID dosing. #Diffuse tremors -Has been evaluated by neurology twice last admission -Monitor calcium as on last amdmission #apneic episodes on top of chronic hypoxic respiratory failure -On 2 L nasal cannula baseline -Will restart BIPAP at night if warranted. #Cervical spondylosis -MRI as outpatient as per prior plan. #Chronic systolic CHF -Resume Torsemide and spironolactone -Continue medical management - not overloaded at this point. -Resume 5 mg lisinopril. #History of rheumatoid arthritis -Presently on sulfasalazine and azathioprine #History of Graves' disease -Documented in history with unclear course or interventions #History of MRSA pneumonia - Not exhibiting signs of pneumonia, Rocephin and Azithromycin. #Hx CAD s/p CABG and PCI -Continue statin and metoprolol #Hx bowel perforation s/p partial colectomy #GERD w/ Hx GI bleed/gastric ulcers -Continue PPI #DVT ppx: Continue Xarelto Full Code. d/w patient Charges/Coding Visit Charges Inpatient E&M: 19235 Init Hosp L3
--- NOTE | 2022-08-08 06:23 | PN.CC_ITS ---
Assessment & Plan Assessment/Plan (1) Pneumonia: QUALIFIERS: Pneumonia type: due to unspecified organism Laterality: left Lung location: lower lobe of lung Qualified Code(s): J18.9 - Pneumonia, unspecified organism PLAN: Plan RECOMMENDATIONS: 1. Continue antimicrobials per ID recommendations. 2. Avoid sedating medications. 3. Recommend BiPAP therapy with naps and nightly. Okay to wean to nasal cannula oxygen today as tolerated. 4. Supplemental oxygen to maintain saturations at or above 90%. 5. Encourage incentive spirometer use and mobilize patient as tolerated. IMPRESSIONS: 1. MRSA pneumonia Continue supportive measures with antimicrobials under the discretion of infectious diseases. 2. Encephalopathy Likely metabolic in etiology in the setting #1. ABG was within normal limits. However, the patient was already on BiPAP therapy at that time. Regardless, the patient's mentation improved with noninvasive positive pressure ventilatory support. This could certainly suggest that the patient may have experienced an acute event of CO2 retention. Continue supportive measures. Recommend nocturnal BiPAP support. 3. Intermittent tremors/spasms of unclear etiology Neuro work-up has been largely unrevealing. Defer additional work-up to hospitalist and neurology team. 4. Questionable history of obstructive sleep apnea The patient reportedly had a sleep study previously but has been unable to tolerate any form of conventional PAP therapy. I do suspect that the apneic events reported overnight were related to his untreated sleep apnea. Therefore, I would strongly recommend utilization of BiPAP therapy with naps and nightly. 5. History of heart failure with reduced ejection fraction/Graves' disease/chronic kidney disease/rheumatoid arthritis Complicates care, management, recovery and prognosis. Continue supportive measures as noted above. This note was generated with [employer] dictation software. It may contain incorrect words, spelling, and punctuation that were not noted in checking the note before signing. Subjective Subjective The patient was seen and examined at the bedside this morning. Events from the last 24 hours have been reviewed. The patient is currently afebrile, hemodynamically stable and maintaining appropriate oxygen saturations on BiPAP with an FiO2 of 40%. The patient is documented to be overall net +7.6 L for the hospitalization. Potassium is low this morning at 3.2. Although sleepy, the patient easily arouses when stimulated and answer simple questions for me. He does report some resting shortness of breath. Objective Data Objective Data The patient's most recent lab work, culture data and imaging studies have all been personally reviewed. Surface echocardiogram demonstrated normal LV size with mild global systolic dysfunction with an ejection fraction of 47%. Pulmonary artery systolic pressure was estimated to be 30 mmHg. Sputum culture dated August 04 was positive for MRSA. Vital Signs: Vital Signs Temp Pulse Resp BP Pulse Ox O2 Del Method O2 Flow Rate 99.7 F H 123 H 24 H 130/70 H 91 Bi-pap 5 08/08/22 04:00 08/08/22 06:00 08/08/22 06:00 08/08/22 06:00 08/08/22 06:00 08/08/22 06:00 08/08/22 03:45 FiO2 40 08/08/22 06:00 Oxygen Flow Rate (L/min) 5 Oxygen Delivery Method Bi-pap Weight: 297 lb 2.93 oz Body Mass Index (BMI) 38.1 Intake & Output: Intake and Output for Last 24 Hours 08/06/22 08/07/22 08/08/22 23:59 23:59 23:59 Intake Total 1873.33 / 1873.33 1722.8 / 1722.8 223.83 / 223.83 Output Total 300 / 300 2750 / 2750 300 / 300 Balance 1573.33 / 1573.33 -1027.2 / -1027.2 -76.17 / -76.17 Lab / Micro Data Attestation: I reviewed the patient's lab results. Result Diagrams: 08/08/22 03:17 08/08/22 03:17 Labs: Laboratory Results - last 24 hr 08/05/22 21:45: Ionized Calcium 5.7 H 08/05/22 21:45: Vit D 1,25-Dihydroxy 11.8 L 08/07/22 05:24: Sodium 141, Potassium 3.6, Chloride 110 H, Carbon Dioxide 24.0, Anion Gap 7, BUN 31 H, Creatinine 1.00, Estim Creat Clear Calc 82.20, Est GFR (MDRD) Af Amer 96, Est GFR (MDRD) Non-Af 79, BUN/Creatinine Ratio 31.1 H, Glucose 104, Calcium 10.9 H, Total Bilirubin 0.40, AST 26, ALT 16, Alkaline Phosphatase 77, Total Protein 7.8, Albumin 1.8 L, Globulin 6.0 H, Albumin/Globulin Ratio 0.3 L 08/07/22 05:24: Total Creatine Kinase 103 08/07/22 07:44: POC Glucose 94 08/07/22 11:55: Ammonia 21.0 08/08/22 03:17: WBC 12.4 H, RBC 3.03 L, Hgb 8.3 L, Hct 26.1 L, MCV 86.1, MCH 27.4, MCHC 31.8 L, RDW Std Deviation 53.1 H, RDW Coeff of Trev 17.1 H, Plt Count 469 H, MPV 8.8, Immature Gran % (Auto) 0.600, Neut % (Auto) 83.0 H, Lymph % (Auto) 6.0 L, [place] % (Auto) 7.3, Eos % (Auto) 2.7, Baso % (Auto) 0.4, Absolute Neuts (auto) 10.3 H, Absolute Lymphs (auto) 0.74 L, Nucleated RBC % 0.3 08/08/22 03:17: Sodium 144, Potassium 3.2 L, Chloride 111 H, Carbon Dioxide 26.0, Anion Gap 7, BUN 28 H, Creatinine 1.07, Estim Creat Clear Calc 76.82, Est GFR (MDRD) Af Amer 88, Est GFR (MDRD) Non-Af 73, BUN/Creatinine Ratio 26.2 H, Glucose 110 H, Calcium 11.0 H, Total Bilirubin 0.30, AST 20, ALT 11 L, Alkaline Phosphatase 73, Total Protein 7.5, Albumin 1.7 L, Globulin 5.8 H, Albumin/Globulin Ratio 0.3 L Micro: Microbiology 08/04/22 00:01 Sputum, Expectorated/Coughed Gram Stain - Final 08/04/22 00:01 Sputum, Expectorated/Coughed Respiratory Culture - Final Meth. resistant Staph. aureus 08/03/22 20:10 Urine, Clean Catch Urine Culture - Final Culture exhibits no growth. 08/03/22 18:55 Blood Culture (Wb) - Left Forearm Blood Culture - Preliminary No growth in 48 hours. 08/03/22 19:05 Blood Culture (Wb) - Left Wrist Blood Culture - Preliminary No growth in 48 hours. 08/03/22 20:10 Urine, Random Legionella Antigen - Final 08/03/22 20:10 Urine, Random Streptococcus pneumoniae Antigen (M - Final 08/03/22 19:00 Nasal Secretion SARS-CoV-2 & FLU Antigen (Rapid) - Final ABG Data ABG results: ABG 08/07/22 08:43 Specimen Type ART Sample Site L Radial pH 7.38 Bicarbonate Actual 24.8 Total CO2 26 Base Excess 0 O2 Saturation 98 ABG pCO2 42.0 ABG pO2 104 H William Test Positive O2 Delivery Device Cannula Liter Flow 5.0 Radiography Diagnostic Testing: Radiology Impression Chest X-Ray 08/07/22 08:20 IMPRESSION: Resolving pulmonary edema. Electronically Signed: Pawel Mcwilliams MD at 9:20 EDT , Physical Exam Const alert and no apparent distress Constitutional Narrative: Arouses and answers simple questions. General Appearance: on BiPAP Nutritional Appearance: obese HEENT normocephalic and head/scalp atraumatic Eyes PERRL, EOMs intact bilaterally and conjunctivae normal Neck supple General: trachea midline Chest inspection of chest normal Resp normal respiratory effort Auscultation: diminished lung sounds; Negative for rales, rhonchi or wheezes Cardio S1 normal heart sound and S2 normal heart sound Rate: tachycardic Rhythm: abnormal rhythm GI normal to inspection, nondistended, normoactive bowel sounds Extremity General Extremity: Negative for clubbing Skin General Skin Exam: venous stasis and dermatitis Neuro CN's II-XII intact bilaterally and no focal motor deficits Psych cooperative Charges/Coding Visit Charges Inpatient E&M: 57375 Subs Hosp L2
--- NOTE | 2022-08-08 06:47 | PCM.PN.HOSP ---
Reason for Visit Reason for Visit: Diagnoses Hypokalemia (08/03/22) Unspecified atrial fibrillation (08/03/22) Pneumonia, unspecified organism (08/03/22) Spondylosis without myelopathy or radiculopathy, cervical region (08/03/22) Spondylosis without myelopathy or radiculopathy, thoracic region (08/03/22) Spondylosis without myelopathy or radiculopathy, lumbar region (08/03/22) Subjective Subjective Patient tired, will wake up and attempts to answer questions but quickly falls back asleep Objective Data Objective Data Vital Signs: Vital Signs Temp Pulse Resp BP Pulse Ox O2 Del Method O2 Flow Rate 99.7 F H 123 H 24 H 130/70 H 91 Bi-pap 5 08/08/22 04:00 08/08/22 06:00 08/08/22 06:00 08/08/22 06:00 08/08/22 06:00 08/08/22 06:00 08/08/22 03:45 FiO2 40 08/08/22 06:00 Oxygen Flow Rate (L/min) 5 Oxygen Delivery Method Bi-pap Weight: 134.8 kg Body Mass Index (BMI) 38.1 Intake & Output: Intake and Output for Last 24 Hours 08/06/22 08/07/22 08/08/22 23:59 23:59 23:59 Intake Total 1873.33 / 1873.33 1722.8 / 1722.8 490.23 / 490.23 Output Total 300 / 300 2750 / 2750 300 / 300 Balance 1573.33 / 1573.33 -1027.2 / -1027.2 190.23 / 190.23 Lab / Micro Data Result Diagrams: 08/08/22 03:17 08/08/22 03:17 Labs: Laboratory Results - last 24 hr 08/05/22 21:45: Ionized Calcium 5.7 H 08/05/22 21:45: Vit D 1,25-Dihydroxy 11.8 L 08/07/22 05:24: Total Creatine Kinase 103 08/07/22 07:44: POC Glucose 94 08/07/22 11:55: Ammonia 21.0 08/08/22 03:17: WBC 12.4 H, RBC 3.03 L, Hgb 8.3 L, Hct 26.1 L, MCV 86.1, MCH 27.4, MCHC 31.8 L, RDW Std Deviation 53.1 H, RDW Coeff of Trev 17.1 H, Plt Count 469 H, MPV 8.8, Immature Gran % (Auto) 0.600, Neut % (Auto) 83.0 H, Lymph % (Auto) 6.0 L, [place] % (Auto) 7.3, Eos % (Auto) 2.7, Baso % (Auto) 0.4, Absolute Neuts (auto) 10.3 H, Absolute Lymphs (auto) 0.74 L, Nucleated RBC % 0.3 08/08/22 03:17: Sodium 144, Potassium 3.2 L, Chloride 111 H, Carbon Dioxide 26.0, Anion Gap 7, BUN 28 H, Creatinine 1.07, Estim Creat Clear Calc 76.82, Est GFR (MDRD) Af Amer 88, Est GFR (MDRD) Non-Af 73, BUN/Creatinine Ratio 26.2 H, Glucose 110 H, Calcium 11.0 H, Total Bilirubin 0.30, AST 20, ALT 11 L, Alkaline Phosphatase 73, Total Protein 7.5, Albumin 1.7 L, Globulin 5.8 H, Albumin/Globulin Ratio 0.3 L Micro: Microbiology 08/04/22 00:01 Sputum, Expectorated/Coughed Gram Stain - Final 08/04/22 00:01 Sputum, Expectorated/Coughed Respiratory Culture - Final Meth. resistant Staph. aureus 08/03/22 20:10 Urine, Clean Catch Urine Culture - Final Culture exhibits no growth. 08/03/22 18:55 Blood Culture (Wb) - Left Forearm Blood Culture - Preliminary No growth in 48 hours. 08/03/22 19:05 Blood Culture (Wb) - Left Wrist Blood Culture - Preliminary No growth in 48 hours. 08/03/22 20:10 Urine, Random Legionella Antigen - Final 08/03/22 20:10 Urine, Random Streptococcus pneumoniae Antigen (M - Final 08/03/22 19:00 Nasal Secretion SARS-CoV-2 & FLU Antigen (Rapid) - Final ABG Data ABG results: ABG 08/07/22 08:43 Specimen Type ART Sample Site L Radial pH 7.38 Bicarbonate Actual 24.8 Total CO2 26 Base Excess 0 O2 Saturation 98 ABG pCO2 42.0 ABG pO2 104 H William Test Positive O2 Delivery Device Cannula Liter Flow 5.0 Radiography Diagnostic Testing: Radiology Impression Chest X-Ray 08/07/22 08:20 IMPRESSION: Resolving pulmonary edema. Electronically Signed: Pawel Mcwilliams MD at 9:20 EDT , Physical Exam Narrative General: Tired, will wake up but does fall back asleep quickly HEENT: Atraumatic, normocephalic Eyes: Anicteric, normal conjunctiva, extraocular movements grossly intact, pupils equal round and reactive to light Neck: Supple Respiratory: Wearing nasal cannula, somewhat coarse on the right, somewhat more diminished left greater than right Cardiovascular: Irregularly irregular GI: Soft, nontender, nondistended Extremities: Minimal extremity edema Musculoskeletal: Moving all extremities Neuro: No overt focal neurological deficits but difficulty participating in exam due to mental status, he is tremulous when he wakes up Skin: Chronic changes in bilateral lower extremities Psych: Attempts to be cooperative Assessment & Plan Assessment/Plan (1) Pneumonia: QUALIFIERS: Laterality: left Lung location: lower lobe of lung Pneumonia type: due to unspecified organism Qualified Code(s): J18.9 - Pneumonia, unspecified organism PLAN: Plan #Acute encephalopathy -Likely mixed picture but presently concern for infectious etiology and/or hypercalcemia and there had been concern for toxic component of cefepime which has been discontinued -Has been seen by neurology twice, EEG obtained 08/05 demonstrated nonspecific slowing without any focal changes -MRI brain with chronic changes but no acute abnormalities -Ammonia within normal limits, liver function unremarkable -Had been on cefepime and vancomycin and cefepime was felt to potentially be contributing however this was discontinued and he has had continued encephalopathy -Neurology recontacted 08/07 and recommended repeat EEG as well as coverage for possible meningitis and recommended LP -Presently on vancomycin, Rocephin, acyclovir -repeat EEG 08/07 again demonstrated mild generalized background slowing -Xarelto DC'd 08/07 for LP and will need at least 48 to 72 hours prior to IR performing LP, currently being bridged with heparin -B12 had been borderline, will replace, will also give folic acid and thiamine especially given albumin of 1.7, likely has nutritional deficiencies, prealbumin 3.2 -ESR and CRP elevated, will trend to assess for improving versus worsening status #Hypercalcemia -Calcium 11 but corrected is 12.8, had been between 10.1-10.9 uncorrected since admission with no other noted recent elevations in calcium -PTH reported as <6.3 -We will check PTHrP, with elevation in calcium concerning to be symptomatic with undetectable PTH there is certainly concern for malignancy, check SPEP and UPEP, JANEEN -Vitamin D 25 levels 63.4 with a 1-25 of 11.8 -Thyroid study nondiagnostic due to body habitus and difficulty with exam, given undetectable PTH and low suspicion for hyperparathyroidism do not feel we need urgent parathyroid scan -If w/u unrevealing and suspicion for malignancy can consider chest CT as well -Patient has worsening hypercalcemia and based on symptomatology seems to have symptomatic hypercalcemia. Given his PTH is undetectable it does not seem to be due to hyperparathyroidism so do not feel Sensipar would be beneficial. He is now on Lasix, if becomes slightly volume depleted can continue fluids and Lasix to help with calcium excretion. Additionally will give bisphosphonate. Do not have subcu or IM calcitonin available, nasal calcitonin not helpful for acute symptomatic or severe hypercalcemia. Exploring options, if calcium is not improving tomorrow may need to try to order this or obtained from other hospital -Continue lasix #Afib w/ rvr -Presented initially with A-fib with RVR and required Cardizem and amiodarone drips, had complicated course but was eventually transitioned to oral medication though overlap with short acting Cardizem resulted in soft BP and ultimately was transitioned to long-acting Cardizem with improvement in overlap with oral amnio x3 doses however went back into RVR early in the morning on 08/08 and was placed back on Cardizem drip, Likely had repeated RVR due to patient being lethargic and not getting his Cardizem and metoprolol orally in the AM on 08/07. He has since been transitioned back to oral and is off Cardizem drip -Echocardiogram 08/04 with EF 47%, mild global left ventricular systolic dysfunction, mild to moderate eccentric mitral valve insufficiency, pulmonary artery systolic pressure 30 -TSH mildly elevated and free T4 also slightly elevated however given acute presentation of critical illness would benefit from repeat thyroid function studies outpatient once #1 resolves and if persistent may need further work-up/evaluation #Diffuse tremors -Has been evaluated by neurology twice -EEG with nonspecific changes -Ortho evaluated due to cervical narrowing -MRI brain unrevealing for cause -Replace B12, replace underlying electrolytes -Assess for cause of hypercalcemia as this is likely high cause or contributor #apneic episodes on top of chronic hypoxic respiratory failure -On 2 L nasal cannula baseline -Had 2 be transferred to the ICU with BiPAP 08/07 due to worsening mental status and difficulty managing secretions and several apneic periods -ABG fairly unrevealing chest x-ray with improving central pulmonary edema with mild residual bibasilar atelectasis -Was noted to be up 7.6 L since presentation, on IV Lasix and spironolactone -Continue BiPAP prn and would benefir from [facility] as well -ICU team following #Cervical spondylosis -CT of the cervical and thoracic spine dated 08/01/2022 shows degenerative changes at multiple levels with loss of disc height, disc osteophyte complex formation and facet arthrosis -Evaluated by orthospine 08/07 and recommended further MRI imaging to rule out significant central stenosis or myelopathy however patient acutely decompensated 08/07 was transferred to the ICU and was unable to obtain MRI imaging at this time #Acute on Chronic systolic CHF Exacerbation -Continue IV lasix and spironolactone -Continue to optimize volume status and medical management -In order to avoid low BP will stop lisinopril while titrating other medications for heart failure #Chronic Normocytic anemia/Fe deficiency anemia -Admission hemoglobin 8.8 -folic acid 3.80 (low normal), vitamin B12 288 (low normal), Fe 19 (low), TIBC 220 (low), Fe sat 8.6% (low), Ferritin 1601 (elevated) -Continue iron supplementation -Also replace B12 #History of rheumatoid arthritis -Presently on sulfasalazine and azathioprine #History of Graves' disease -Documented in history with unclear course or interventions -TSH mildly elevated and free T4 also slightly elevated however given acute presentation of critical illness would benefit from repeat thyroid function studies outpatient once #1 resolves and if persistent may need further work-up/evaluation -Appears to possibly been on methimazole in the past but his not filled this for multiple months #MRSA pneumonia -Sputum culture 08/04 positive for MRSA -On vancomycin -Infectious disease following #Hx CAD s/p CABG and PCI -Continue statin and metoprolol -We will be holding home Xarelto #Hx bowel perforation s/p partial colectomy #GERD w/ Hx GI bleed/gastric ulcers -Due to lethargy and mental status and consistently getting oral medications, will change PPI to IV #DVT ppx: SCDs due to Xarelto being held Hailey Jaimes MD Time spent in the patient's overall evaluation,decision-making process, review of diagnostic data, adjustment of management, discussion with other providers, nursing nursing and ancillary staff involved in patient's care documentation, 60 minutes Charges/Coding Visit Charges Inpatient E&M: 77240 [facility] Hosp L3
[2022-08-08] MEDS: Potassium Chloride 10mEq/100mL 10 MEQ/100 ML IV.SOLN. 100 MEQ IV BOLUS ×6 (06:56→14:06)
--- NOTE | 2022-08-08 07:54 | US_ITS ---
STUDY: THYROID ULTRASOUND REASON FOR EXAM: Male, 66 years old. AMS. Abnormal labs thyroid/parathyroid. TECHNIQUE: Ultrasound evaluation of the thyroid was performed with real-time and static ruiz-scale imaging. COMPARISON: CT cervical spine without contrast 08/05/2022. FINDINGS: RIGHT LOBE: Not visualized. LEFT LOBE: Not visualized. ISTHMUS: Not visualized. US/Thyroid IMPRESSION: Nondiagnostic thyroid ultrasound due to nonvisualization of the thyroid gland. This is due to patient''s body habitus and condition. Electronically Signed: Vipul Christiansen MD at 14:24 EDT ,
[2022-08-08] MEDS: Metoprolol(XL)Succ 200 MG Tablet PO (08:16)
[2022-08-08] MEDS: 0.9% Saline Lock 10 ML Syringe IV ×5 (08:18→23:42)
[2022-08-08] MEDS: busPIRone 15 MG TABLET PO ×2 (08:21→21:07)
[2022-08-08] MEDS: guaiFENesin 1,200 MG Tablet 1200 MG PO ×2 (08:24→21:10)
[2022-08-08] MEDS: Spironolactone 25 MG Tablet PO (08:25)
[2022-08-08] MEDS: Multivitamins,Ther W-Minerals Tablet 1 TABLET PO (08:25)
[2022-08-08] MEDS: sulfaSALAzine 500 MG Tablet 1000 MG PO (08:25)
[2022-08-08] MEDS: Ferrous Sulfate 325 MG Tablet PO ×2 (08:25→15:52)
[2022-08-08 08:58] LABS: Erythrocyte Sedimentation Rate 56 mm/hr (0-20)
[2022-08-08 09:14] LABS: Vancomycin, Trough Level 26.4 ug/mL (5.0-15.0)
[2022-08-08 09:25] LABS: BNP,B-Type NATRIURETIC PEPTIDE 140.2 pg/mL (0-100)
[2022-08-08] MEDS: Cyanocobalamin 500 MCG Tablet 1000 MCG PO (09:34)
[2022-08-08] MEDS: Menthol/Lanolin/Calamine/Znox 113 GM Tube 1 APPLIC TOPICAL ×2 (09:38→21:08)
[2022-08-08] MEDS: dilTIAZem CD 120 MG Capsule PO ×2 (09:38→21:08)
[2022-08-08] MEDS: azaTHIOprine 50 MG Tablet PO ×2 (09:39→21:10)
[2022-08-08] MEDS: Nystatin Powder 15gm Bottle 1 APPLIC TOPICAL ×2 (09:39→21:10)
[2022-08-08] MEDS: Fenofibrate 48 MG Tablet PO (09:41)
[2022-08-08 09:47] LABS: Free T3 0.8 pg/mL (2.18-3.98); Magnesium 1.7 mg/dL (1.6-2.6); Phosphorus 2.7 mg/dL (2.5-4.9); Prealbumin 3.2 mg/dL (20.0-40.0); T4 Free Direct 1.24 ng/dL (0.76-1.46); Thyroid Stim Hormone (TSH) 4.46 uIU/mL (0.358-3.74)
[2022-08-08 10:13] LABS: International Normalized Ratio 1.7; Prothrombin Time (Protime)PT. 20.3 SECONDS (11.7-14.9)
[2022-08-08 10:14] LABS: Partial Thromboplast Time 49.3 Seconds (24.1-36.2)
--- NOTE | 2022-08-08 10:14 | PCM.PN.ID ---
Physical Exam Narrative Awake, no fever, some neck pain. Some cough. Const no apparent distress General Appearance: cooperative Neck Neck Narrative: mild soreness with neck movement Resp Auscultation: rhonchi Cardio regular rate and regular rhythm GI soft to palpation, non-tender and non-distended Skin no rashes or lesions noted ID ID: Route of nutrition/ use of supplements: [] Nutritional Intake: [] IV Site: [] Smith Catheter: [] Assessment & Plan Assessment/Plan (1) Pneumonia: QUALIFIERS: Pneumonia type: due to unspecified organism Laterality: left Lung location: lower lobe of lung Qualified Code(s): J18.9 - Pneumonia, unspecified organism PLAN: MRSA pneumonia - cont with vanc tremors, encephalopathy - Neuro following. Will cover for meningitis at this point, 08/07/22 added ceftriaxone and iv acyclovir. Would recommend LP if possible. Mental status much improved today. Will follow, d/w nursing
[2022-08-08] MEDS: HEPARIN/D5w 25,000 UNITS 25,000 UNITS/250 ML IV.SOLN. 17 UNITS CONT INF (10:25)
--- NOTE | 2022-08-08 11:08 | PCM.RX.CS ---
Consult Pharmacy has been consulted to manage selected antiobiotic: Vancomycin Type of Consult: Follow-up Prior Doses of Antibiotics Received/Current Regimen: On 1500mg iv q12h. Labs: Sodium 144 mmol/L (136-145) 08/08/22 03:17 Potassium 3.2 mmol/L (3.5-5.1) L 08/08/22 03:17 Chloride 111 mmol/L (98-107) H 08/08/22 03:17 Carbon Dioxide 26.0 mmol/L (21.0-32.0) 08/08/22 03:17 Anion Gap 7 (5-15) 08/08/22 03:17 BUN 28 mg/dL (7-18) H 08/08/22 03:17 Creatinine 1.07 mg/dL (0.70-1.30) 08/08/22 03:17 Est GFR (MDRD) Af Amer 88 mL/min (>60) 08/08/22 03:17 Est GFR (MDRD) Non-Af 73 mL/min (>60) 08/08/22 03:17 BUN/Creatinine Ratio 26.2 RATIO (10-20) H 08/08/22 03:17 Glucose 110 mg/dL (74-106) H 08/08/22 03:17 Vancomycin Trough 26.4 ug/mL (5.0-15.0) H 08/08/22 08:15 Random Vancomycin 21.1 ug/mL (0.0-15.0) H 08/06/22 15:50 Microbiology: Microbiology 08/04/22 00:01 Sputum, Expectorated/Coughed Gram Stain - Final 08/04/22 00:01 Sputum, Expectorated/Coughed Respiratory Culture - Final Meth. resistant Staph. aureus 08/03/22 20:10 Urine, Clean Catch Urine Culture - Final Culture exhibits no growth. 08/03/22 18:55 Blood Culture (Wb) - Left Forearm Blood Culture - Preliminary No growth in 48 hours. 08/03/22 19:05 Blood Culture (Wb) - Left Wrist Blood Culture - Preliminary No growth in 48 hours. 08/03/22 20:10 Urine, Random Legionella Antigen - Final 08/03/22 20:10 Urine, Random Streptococcus pneumoniae Antigen (M - Final 08/03/22 19:00 Nasal Secretion SARS-CoV-2 & FLU Antigen (Rapid) - Final Weight used for dosin kg Estimated Creatinine Clearance: 77 ml/min Goal Trough: 15-20 mcg/mL Pharmacy Plan for Drug Dosing: Trough today was elevated at 26.4 (goal 15-20 mcg/ml). Have stopped dosing at this time. Random level ordered for tomorrow AM. Pharmacy Service will continue to monitor and adjust dosing as required. Follow-Up Labs: Trough Vancomycin - random level 6.1.23 @0600
[2022-08-08] MEDS: Furosemide 40 MG/4 ML Vial IV (15:51)
[2022-08-08 17:01] LABS: Partial Thromboplast Time 84.7 Seconds (24.1-36.2)
[2022-08-08] MEDS: Magnesium Sulfate 4gm/100mL 4 GM/100 ML IV.SOLN. IV (17:14)
--- NOTE | 2022-08-08 17:23 | PCM.HOSP.N ---
Hospitalist Note Spoke w/ pts son/HPOA regarding current status and medical problems. He indicated he is not sure how well his father understood the difference between full code and DNR and DNI when he made that decision. Discussed that currently he is full code in our system and he verbalized his understanding and said that he intended to ask him and try to get a better answer. Discussed that ultimately he will be the one that would be able to make decisions on behalf of his father if he is otherwise unable to make those decisions. He reports he is going to come up again tomorrow to see the patient. Given opportunity to ask any questions
[2022-08-08] MEDS: MELATONIN 10 MG TABLET 5 MG PO (21:10)
[2022-08-08] MEDS: Atorvastatin Calcium 40 MG Tablet PO (21:17)
[2022-08-08] MEDS: HEPARIN/D5w 25,000 UNITS 25,000 UNITS/250 ML IV.SOLN. 16 UNITS CONT INF (23:43)
[2022-08-09] VITALS (31 sets, daily range): BP systolic 73–122; BP diastolic 61–108; PULSE 83–136; RESP 12–99; TEMP 37–38.2; O2SAT 93–100; BMI 38.7
[2022-08-09 04:39] LABS: Absolute Lymphocyte Count 0.98 X10^3/uL (0.83-4.51); Absolute Neutrophil Count 9.8 X10^3/uL (2.0-7.7); Basophil# 0.06 X10^3/uL; Basophil% 0.5 % (0-1); Eosinophil# 0.45 X10^3/uL; Eosinophils% 3.7 % (0-5); Hematocrit 24.9 % (40-54); Hemoglobin 7.7 g/dL (13.0-16.5); Lymphocyte # 0.98 X10^3/ul (0.83-4.51); Mean Corp Hgb Conc 30.9 g/dL (32-36); Mean Corpuscular Hgb 26.8 pg (27.0-32.0); Mean Corpuscular Volume 86.8 fL (80-94); Mean Platelet Vol. 8.7 fl (6.2-12.0); Monocyte# 0.87 X10^3/uL; Monocyte% 7.1 % (0-10); NRBC Flagged by Analyzer 0.3 % (0-5); Neutrophil # 9.78 X10^3/uL (2.7-7.7); Neutrophil % 79.4 % (47-70); Platelet Count 441 K/mm3 (150-450); RBC Distribution Width SD 52.8 fl (35.1-43.9); Red Blood Count 2.87 M/mm3 (4.6-6.2); White Blood Count 12.3 K/mm3 (4.4-11.0)
[2022-08-09 05:04] LABS: ALB/GLOB Ratio 0.3 RATIO (0.9-2.4); AST(SGOT) 16 U/L (15-37); Alanine Aminotransfer ALT/SGPT 11 U/L (16-61); Albumin, Serum 1.6 g/dL (3.2-5.0); Alkaline Phosphatase 69 U/L (45-117); Anion Gap 5 (5-15); BUN 24 mg/dL (7-18); BUN/Creat Ratio 24.5 RATIO (10-20); Calcium,Total 10.2 mg/dL (8.5-10.1); Chloride 108 mmol/L (98-107); Creatinine, Serum 0.98 mg/dL (0.70-1.30); EST Glomerular Filtration Rate 81 mL/min (>60); Est Glom Filt Rate - Afr Amer 98 mL/min (>60); Estimated Creatinine Clearance 83.88 ml/min; Globulin 5.4 g/dL (2.2-4.2); Glucose 132 mg/dL (74-106); Potassium 3.4 mmol/L (3.5-5.1); Sodium Level 140 mmol/L (136-145)
[2022-08-09 05:26] LABS: Vancomycin, Random Level 15.4 ug/mL (0.0-15.0)
[2022-08-09 05:42] LABS: Erythrocyte Sedimentation Rate 77 mm/hr (0-20)
[2022-08-09] MEDS: ACYCLOVIR IV ×3 (06:03→20:27)
[2022-08-09] MEDS: DEXTROSE 5% IV ×3 (06:03→20:27)
--- NOTE | 2022-08-09 06:52 | PN.HOSP_ITS ---
Reason for Visit Reason for Visit: Diagnoses Hypokalemia (08/03/22) Unspecified atrial fibrillation (08/03/22) Pneumonia, unspecified organism (08/03/22) Spondylosis without myelopathy or radiculopathy, cervical region (08/03/22) Spondylosis without myelopathy or radiculopathy, thoracic region (08/03/22) Spondylosis without myelopathy or radiculopathy, lumbar region (08/03/22) Subjective Subjective Patient continued today, still has tremors/shakes and slow to answer questions and somewhat tired but more appropriate than yesterday Objective Data Objective Data Vital Signs: Vital Signs Temp Pulse Resp BP Pulse Ox O2 Del Method O2 Flow Rate 98.9 F 107 H 20 H 103/68 95 Bi-pap 3 08/09/22 04:00 08/09/22 06:00 08/09/22 06:00 08/09/22 06:00 08/09/22 06:00 08/09/22 06:00 08/09/22 04:00 FiO2 30 08/09/22 06:00 Oxygen Flow Rate (L/min) 3 Oxygen Delivery Method Bi-pap Weight: 136.8 kg Body Mass Index (BMI) 38.7 Intake & Output: Intake and Output for Last 24 Hours 08/07/22 08/08/22 08/09/22 23:59 23:59 23:59 Intake Total 1722.8 / 1722.8 4646.5667 / 4646.5667 0 / 0 Output Total 2750 / 2750 2140 / 2140 300 / 300 Balance -1027.2 / -1027.2 2506.5667 / 2506.5667 -300 / -300 Lab / Micro Data Result Diagrams: 08/09/22 04:32 08/09/22 04:32 Labs: Laboratory Results - last 24 hr 08/08/22 08:15: Vancomycin Trough 26.4 H 08/08/22 08:33: ESR 56 H 08/08/22 08:33: Phosphorus 2.7, Magnesium 1.7, C-React Prot Ext Range 213.00 H, Prealbumin 3.2 L, TSH 4.46 H, Free T4 1.24, Free T3 pg/dL 0.8 L 08/08/22 08:33: B-Natriuretic Peptide 140.2 H 08/08/22 09:40: PT 20.3 H, INR 1.7, APTT 49.3 H 08/08/22 16:30: APTT 84.7 H 08/08/22 23:10: APTT 114.0 H* 08/09/22 04:32: WBC 12.3 H, RBC 2.87 L, Hgb 7.7 L, Hct 24.9 L, MCV 86.8, MCH 26.8 L, MCHC 30.9 L, RDW Std Deviation 52.8 H, RDW Coeff of Trev 17.0 H, Plt Count 441, MPV 8.7, Immature Gran % (Auto) 1.300 H, Neut % (Auto) 79.4 H, Lymph % (Auto) 8.0 L, [place] % (Auto) 7.1, Eos % (Auto) 3.7, Baso % (Auto) 0.5, Absolute Neuts (auto) 9.8 H, Absolute Lymphs (auto) 0.98, Nucleated RBC % 0.3, ESR 77 H 08/09/22 04:32: Sodium 140, Potassium 3.4 L, Chloride 108 H, Carbon Dioxide 27.0, Anion Gap 5, BUN 24 H, Creatinine 0.98, Estim Creat Clear Calc 83.88, Est GFR (MDRD) Af Amer 98, Est GFR (MDRD) Non-Af 81, BUN/Creatinine Ratio 24.5 H, Glucose 132 H, Calcium 10.2 H, Total Bilirubin 0.30, AST 16, ALT 11 L, Alkaline Phosphatase 69, C-React Prot Ext Range 184.00 H, Total Protein 7.0, Albumin 1.6 L, Globulin 5.4 H, Albumin/Globulin Ratio 0.3 L 08/09/22 04:32: Random Vancomycin 15.4 H Micro: Microbiology 08/03/22 18:55 Blood Culture (Wb) - Left Forearm Blood Culture - Final No growth in 5 days. 08/03/22 19:05 Blood Culture (Wb) - Left Wrist Blood Culture - Final No growth in 5 days. 08/04/22 00:01 Sputum, Expectorated/Coughed Gram Stain - Final 08/04/22 00:01 Sputum, Expectorated/Coughed Respiratory Culture - Final Meth. resistant Staph. aureus 08/03/22 20:10 Urine, Clean Catch Urine Culture - Final Culture exhibits no growth. 08/03/22 20:10 Urine, Random Legionella Antigen - Final 08/03/22 20:10 Urine, Random Streptococcus pneumoniae Antigen (M - Final 08/03/22 19:00 Nasal Secretion SARS-CoV-2 & FLU Antigen (Rapid) - Final Radiography Diagnostic Testing: Radiology Impression Thyroid Ultrasound 08/08/22 07:54 IMPRESSION: Nondiagnostic thyroid ultrasound due to nonvisualization of the thyroid gland. This is due to patient''s body habitus and condition. Electronically Signed: Vipul Christiansen MD at 14:24 EDT , Physical Exam Narrative General: Still appears tired but wakes up and is more appropriate today HEENT: Atraumatic, normocephalic Eyes: Anicteric, normal conjunctiva, extraocular movements grossly intact, Neck: Supple Respiratory: Wearing nasal cannula, somewhat coarse on the right, somewhat more diminished left greater than right Cardiovascular: Heart rate high 90s low 100s GI: Soft, nontender, nondistended Extremities: Minimal extremity edema Musculoskeletal: Moving all extremities Neuro: No overt focal neurological deficits, still has tremors/shakes Skin: Chronic changes in bilateral lower extremities Psych: Cooperative Assessment & Plan Assessment/Plan (1) Pneumonia: QUALIFIERS: Laterality: left Lung location: lower lobe of lung Pneumonia type: due to unspecified organism Qualified Code(s): J18.9 - Pneumonia, unspecified organism PLAN: Plan #Acute encephalopathy -Likely mixed picture but presently concern for infectious etiology and/or hypercalcemia and there had been concern for toxic component of cefepime which has been discontinued -Has been seen by neurology twice, EEG obtained 08/05 demonstrated nonspecific slowing without any focal changes -MRI brain with chronic changes but no acute abnormalities -Ammonia within normal limits, liver function unremarkable -Had been on cefepime and vancomycin and cefepime was felt to potentially be contributing however this was discontinued and he has had continued encephalopathy -Neurology recontacted 08/07 and recommended repeat EEG as well as coverage for p ossible meningitis and recommended LP -Presently on vancomycin, Rocephin, acyclovir -repeat EEG 5/31 again demonstrated mild generalized background slowing -Xarelto DC'd 08/07 for LP and will need at least 48 to 72 hours prior to IR performing LP, currently being bridged with heparin -B12 had been borderline, will replace, will also give folic acid and thiamine especially given albumin of 1.7, likely has nutritional deficiencies, prealbumin 3.2 -ESR and CRP elevated, will trend to assess for improving versus worsening status -08/09: CRP downtrending, ESR did increase slightly but overall clinically significantly improved over the past 2 days on current management #Hypercalcemia -Calcium 11 but corrected is 12.8, had been between 10.1-10.9 uncorrected since admission with no other noted recent elevations in calcium -PTH reported as <6.3 -We will check PTHrP, with elevation in calcium concerning to be symptomatic with undetectable PTH there is certainly concern for malignancy, check SPEP and UPEP, JANEEN -Vitamin D 25 levels 63.4 with a 1-25 of 11.8 -Thyroid study nondiagnostic due to body habitus and difficulty with exam, given undetectable PTH and low suspicion for hyperparathyroidism do not feel we need urgent parathyroid scan -If w/u unrevealing and suspicion for malignancy can consider chest CT as well -Patient has worsening hypercalcemia and based on symptomatology seems to have symptomatic hypercalcemia. Given his PTH is undetectable it does not seem to be due to hyperparathyroidism so do not feel Sensipar would be beneficial. He is now on Lasix, if becomes slightly volume depleted can continue fluids and Lasix to help with calcium excretion. Additionally will give bisphosphonate. Do not have subcu or IM calcitonin available, nasal calcitonin not helpful for acute symptomatic or severe hypercalcemia. Exploring options, if calcium is not improving tomorrow may need to try to order this or obtained from other hospital -Continue lasix -08/09: Corrected calcium is 12.1 and still symptomatic, given it was still take multiple days before pamidronate starts to help significantly we will start with a one-time dose of calcitonin 4 mg/kg IM or subcu and can recheck labs #Chronic Normocytic anemia/Fe deficiency anemia -Admission hemoglobin 8.8 -folic acid 3.80 (low normal), vitamin B12 288 (low normal), Fe 19 (low), TIBC 220 (low), Fe sat 8.6% (low), Ferritin 1601 (elevated) -Continue iron supplementation -Also replace B12 -08/09: Slowly downtrending, has history of coronary artery disease and CABG and therefore has a transfusion threshold of 8, 7.7 this AM. We will transfuse 1 unit of packed red blood cells #Afib w/ rvr -Presented initially with A-fib with RVR and required Cardizem and amiodarone drips, had complicated course but was eventually transitioned to oral medication though overlap with short acting Cardizem resulted in soft BP and ultimately was transitioned to long-acting Cardizem with improvement in overlap with oral amnio x3 doses however went back into RVR early in the morning on 08/08 and was placed back on Cardizem drip, Likely had repeated RVR due to patient being lethargic and not getting his Cardizem and metoprolol orally in the AM on 08/07. He has since been transitioned back to oral and is off Cardizem drip -Echocardiogram 08/04 with EF 47%, mild global left ventricular systolic dysfunction, mild to moderate eccentric mitral valve insufficiency, pulmonary artery systolic pressure 30 -TSH mildly elevated and free T4 also slightly elevated however given acute presentation of critical illness would benefit from repeat thyroid function studies outpatient once #1 resolves and if persistent may need further work-up/evaluation -08/09: Had soft BP overnight which is likely multifactorial, if at all possible will be important he gets metoprolol to avoid going back in RVR. Continue to address underlying problem #Diffuse tremors -Has been evaluated by neurology twice -EEG with nonspecific changes -Ortho evaluated due to cervical narrowing -MRI brain unrevealing for cause -Replace B12, replace underlying electrolytes -Assess for cause of hypercalcemia as this is likely high cause or contributor -08/09: As above #apneic episodes on top of chronic hypoxic respiratory failure -On 2 L nasal cannula baseline -Had 2 be transferred to the ICU with BiPAP 08/07 due to worsening mental status and difficulty managing secretions and several apneic periods -ABG fairly unrevealing chest x-ray with improving central pulmonary edema with mild residual bibasilar atelectasis -Was noted to be up 7.6 L since presentation, on IV Lasix and spironolactone -Continue BiPAP prn and would benefit from qhs as well -ICU team following -08/09: Remains in ICU, tolerated BiPAP last night #Cervical spondylosis -CT of the cervical and thoracic spine dated 08/01/2022 shows degenerative changes at multiple levels with loss of disc height, disc osteophyte complex formation and facet arthrosis -Evaluated by orthospine 08/07 and recommended further MRI imaging to rule out significant central stenosis or myelopathy however patient acutely decompensated 08/07 was transferred to the ICU and was unable to obtain MRI imaging at this time -08/09: Patient not clinically able to obtain MRI at this time, complete when stable enough to obtain MRI inpatient versus follow-up outpatient #Acute on Chronic systolic CHF Exacerbation -Continue IV lasix and spironolactone -Continue to optimize volume status and medical management -In order to avoid low BP will stop lisinopril while titrating other medications for heart failure -08/09: Presently being diuresed. Can always consider giving fluids with diuresis if he becomes euvolemic given need to continue to decrease calcium #History of rheumatoid arthritis -Presently on sulfasalazine and azathioprine #History of Graves' disease -Documented in history with unclear course or interventions -TSH mildly elevated and free T4 also slightly elevated however given acute presentation of critical illness would benefit from repeat thyroid function studies outpatient once #1 resolves and if persistent may need further work- up/evaluation -Appears to possibly been on methimazole in the past but his not filled this for multiple months #MRSA pneumonia -Sputum culture 08/04 positive for MRSA -On vancomycin -Infectious disease following #Hx CAD s/p CABG and PCI -Continue statin and metoprolol -We will be holding home Xarelto #Hx bowel perforation s/p partial colectomy #GERD w/ Hx GI bleed/gastric ulcers -Due to lethargy and mental status and consistently getting oral medications, will change PPI to IV #DVT ppx: hep gtt due to Xarelto being held Hailey Jaimes MD Time spent in the patient's overall evaluation,decision-making process, review of diagnostic data, adjustment of management, discussion with other providers, nursing nursing and ancillary staff involved in patient's care documentation, 45minutes Charges/Coding Visit Charges Inpatient E&M: 60491 [facility] Hosp L3
--- NOTE | 2022-08-09 07:01 | PCM.PN.INT ---
Assessment & Plan Assessment/Plan (1) Pneumonia: QUALIFIERS: Pneumonia type: due to unspecified organism Laterality: left Lung location: lower lobe of lung Qualified Code(s): J18.9 - Pneumonia, unspecified organism PLAN: Plan RECOMMENDATIONS: 1. Continue antimicrobials per ID recommendations. 2. Avoid sedating medications. 3. Continue BiPAP therapy with naps and nightly. Okay to wean to nasal cannula oxygen today as tolerated. 4. Supplemental oxygen to maintain saturations at or above 90%. 5. Continue beta-zaira and IV diuresis as tolerated by hemodynamics and renal function. 6. Encourage incentive spirometer use and mobilize patient as tolerated. 7. Monitor blood counts and transfuse if hemoglobin drops below 7 g/dL. Continue PPI therapy. IMPRESSIONS: 1. MRSA pneumonia Continue supportive measures with antimicrobials under the discretion of infectious diseases. 2. Encephalopathy Likely metabolic in etiology in the setting #1. ABG was within normal limits. However, the patient was already on BiPAP therapy at that time. Regardless, the patient's mentation improved with noninvasive positive pressure ventilatory support. This could certainly suggest that the patient may have experienced an acute event of CO2 retention. Continue supportive measures. Recommend nocturnal BiPAP support. 3. Intermittent tremors/spasms of unclear etiology Neuro work-up has been largely unrevealing. Defer additional work-up to hospitalist and neurology team. 4. Questionable history of obstructive sleep apnea The patient reportedly had a sleep study previously but has been unable to tolerate any form of conventional PAP therapy. I do suspect that the apneic events reported overnight were related to his untreated sleep apnea. Therefore, I would strongly recommend utilization of BiPAP therapy with naps and nightly. 5. History of heart failure with reduced ejection fraction/Graves' disease/chronic kidney disease/rheumatoid arthritis Complicates care, management, recovery and prognosis. Continue supportive measures as noted above. This note was generated with [employer] dictation software. It may contain incorrect words, spelling, and punctuation that were not noted in checking the note before signing. Subjective Subjective The patient was seen and examined at the bedside this morning. Events from the last 24 hours have been reviewed. The patient is currently afebrile, hemodynamically stable and maintaining appropriate oxygen saturations on 3 L/min via nasal cannula. The patient was compliant with nocturnal BiPAP therapy. He is currently documented to be overall net +10.2 L for the hospitalization. Hemoglobin has dropped to 7.7 g/dL. The patient remains on a heparin drip. Objective Data Objective Data The patient's most recent lab work, culture data and imaging studies have all been personally reviewed. Surface echocardiogram demonstrated normal LV size with mild global systolic dysfunction with an ejection fraction of 47%. Pulmonary artery systolic pressure was estimated to be 30 mmHg. Sputum culture dated August 04 was positive for MRSA. Vital Signs: Vital Signs Temp Pulse Resp BP Pulse Ox O2 Del Method O2 Flow Rate 98.9 F 107 H 20 H 103/68 95 Bi-pap 3 08/09/22 04:00 08/09/22 06:00 08/09/22 06:00 08/09/22 06:00 08/09/22 06:00 08/09/22 06:00 08/09/22 04:00 FiO2 30 08/09/22 06:00 Oxygen Flow Rate (L/min) 3 Oxygen Delivery Method Bi-pap Weight: 301 lb 9.478 oz Body Mass Index (BMI) 38.7 Intake & Output: Intake and Output for Last 24 Hours 08/07/22 08/08/22 08/09/22 23:59 23:59 23:59 Intake Total 1722.8 / 1722.8 4646.5667 / 4646.5667 0 / 0 Output Total 2750 / 2750 2140 / 2140 300 / 300 Balance -1027.2 / -1027.2 2506.5667 / 2506.5667 -300 / -300 Lab / Micro Data Attestation: I reviewed the patient's lab results. Result Diagrams: 08/09/22 04:32 08/09/22 04:32 Labs: Laboratory Results - last 24 hr 08/08/22 08:15: Vancomycin Trough 26.4 H 08/08/22 08:33: ESR 56 H 08/08/22 08:33: Phosphorus 2.7, Magnesium 1.7, C-React Prot Ext Range 213.00 H, Prealbumin 3.2 L, TSH 4.46 H, Free T4 1.24, Free T3 pg/dL 0.8 L 08/08/22 08:33: B-Natriuretic Peptide 140.2 H 08/08/22 09:40: PT 20.3 H, INR 1.7, APTT 49.3 H 08/08/22 16:30: APTT 84.7 H 08/08/22 23:10: APTT 114.0 H* 08/09/22 04:32: WBC 12.3 H, RBC 2.87 L, Hgb 7.7 L, Hct 24.9 L, MCV 86.8, MCH 26.8 L, MCHC 30.9 L, RDW Std Deviation 52.8 H, RDW Coeff of Trev 17.0 H, Plt Count 441, MPV 8.7, Immature Gran % (Auto) 1.300 H, Neut % (Auto) 79.4 H, Lymph % (Auto) 8.0 L, [place] % (Auto) 7.1, Eos % (Auto) 3.7, Baso % (Auto) 0.5, Absolute Neuts (auto) 9.8 H, Absolute Lymphs (auto) 0.98, Nucleated RBC % 0.3, ESR 77 H 08/09/22 04:32: Sodium 140, Potassium 3.4 L, Chloride 108 H, Carbon Dioxide 27.0, Anion Gap 5, BUN 24 H, Creatinine 0.98, Estim Creat Clear Calc 83.88, Est GFR (MDRD) Af Amer 98, Est GFR (MDRD) Non-Af 81, BUN/Creatinine Ratio 24.5 H, Glucose 132 H, Calcium 10.2 H, Total Bilirubin 0.30, AST 16, ALT 11 L, Alkaline Phosphatase 69, C-React Prot Ext Range 184.00 H, Total Protein 7.0, Albumin 1.6 L, Globulin 5.4 H, Albumin/Globulin Ratio 0.3 L 08/09/22 04:32: Random Vancomycin 15.4 H Micro: Microbiology 08/03/22 18:55 Blood Culture (Wb) - Left Forearm Blood Culture - Final No growth in 5 days. 08/03/22 19:05 Blood Culture (Wb) - Left Wrist Blood Culture - Final No growth in 5 days. 08/04/22 00:01 Sputum, Expectorated/Coughed Gram Stain - Final 08/04/22 00:01 Sputum, Expectorated/Coughed Respiratory Culture - Final Meth. resistant Staph. aureus 08/03/22 20:10 Urine, Clean Catch Urine Culture - Final Culture exhibits no growth. 08/03/22 20:10 Urine, Random Legionella Antigen - Final 08/03/22 20:10 Urine, Random Streptococcus pneumoniae Antigen (M - Final 08/03/22 19:00 Nasal Secretion SARS-CoV-2 & FLU Antigen (Rapid) - Final ABG Data ABG results: ABG 08/07/22 08:43 Specimen Type ART Sample Site L Radial pH 7.38 Bicarbonate Actual 24.8 Total CO2 26 Base Excess 0 O2 Saturation 98 ABG pCO2 42.0 ABG pO2 104 H William Test Positive O2 Delivery Device Cannula Liter Flow 5.0 Radiography Diagnostic Testing: Radiology Impression Thyroid Ultrasound 08/08/22 07:54 IMPRESSION: Nondiagnostic thyroid ultrasound due to nonvisualization of the thyroid gland. This is due to patient''s body habitus and condition. Electronically Signed: Vipul Christiansen MD at 14:24 EDT , Physical Exam Const alert and no apparent distress Constitutional Narrative: Arouses and answers simple questions. Nutritional Appearance: obese HEENT normocephalic and head/scalp atraumatic Eyes PERRL, EOMs intact bilaterally and conjunctivae normal Neck supple General: trachea midline Chest inspection of chest normal Resp normal respiratory effort Auscultation: diminished lung sounds; Negative for rales, rhonchi or wheezes Cardio S1 normal heart sound and S2 normal heart sound Rhythm: abnormal rhythm GI normal to inspection, nondistended, normoactive bowel sounds Extremity General Extremity: Negative for clubbing Skin General Skin Exam: venous stasis and dermatitis Neuro CN's II-XII intact bilaterally and no focal motor deficits Psych cooperative Charges/Coding Visit Charges Inpatient E&M: 27572 Subs Hosp L2
--- NOTE | 2022-08-09 07:25 | PCM.PN.ORT ---
Subjective Subjective The patient was seen and examined. He is lying in bed resting comfortably on CPAP. He denies any pain. He denies any acute numbness or tingling in the extremities. Objective Data Objective Data Vital Signs: Vital Signs Temp Pulse Resp BP Pulse Ox O2 Del Method O2 Flow Rate 98.9 F 108 H 29 H 97/74 98 Bi-pap 3 08/09/22 04:00 08/09/22 07:00 08/09/22 07:00 08/09/22 07:00 08/09/22 07:00 08/09/22 07:00 08/09/22 04:00 FiO2 30 08/09/22 07:00 Oxygen Flow Rate (L/min) 3 Oxygen Delivery Method Bi-pap Weight: 301 lb 9.478 oz Body Mass Index (BMI) 38.7 Intake & Output: Intake and Output for Last 24 Hours 08/07/22 08/08/22 08/09/22 23:59 23:59 23:59 Intake Total 1722.8 / 1722.8 4646.5667 / 4646.5667 266.4 / 266.4 Output Total 2750 / 2750 2140 / 2140 300 / 300 Balance -1027.2 / -1027.2 2506.5667 / 2506.5667 -33.6 / -33.6 Lab / Micro Data Result Diagrams: 08/09/22 04:32 08/09/22 04:32 Labs: Laboratory Results - last 24 hr 08/08/22 08:15: Vancomycin Trough 26.4 H 08/08/22 08:33: ESR 56 H 08/08/22 08:33: Phosphorus 2.7, Magnesium 1.7, C-React Prot Ext Range 213.00 H, Prealbumin 3.2 L, TSH 4.46 H, Free T4 1.24, Free T3 pg/dL 0.8 L 08/08/22 08:33: B-Natriuretic Peptide 140.2 H 08/08/22 09:40: PT 20.3 H, INR 1.7, APTT 49.3 H 08/08/22 16:30: APTT 84.7 H 08/08/22 23:10: APTT 114.0 H* 08/09/22 04:32: WBC 12.3 H, RBC 2.87 L, Hgb 7.7 L, Hct 24.9 L, MCV 86.8, MCH 26.8 L, MCHC 30.9 L, RDW Std Deviation 52.8 H, RDW Coeff of Trev 17.0 H, Plt Count 441, MPV 8.7, Immature Gran % (Auto) 1.300 H, Neut % (Auto) 79.4 H, Lymph % (Auto) 8.0 L, [place] % (Auto) 7.1, Eos % (Auto) 3.7, Baso % (Auto) 0.5, Absolute Neuts (auto) 9.8 H, Absolute Lymphs (auto) 0.98, Nucleated RBC % 0.3, ESR 77 H 08/09/22 04:32: Sodium 140, Potassium 3.4 L, Chloride 108 H, Carbon Dioxide 27.0, Anion Gap 5, BUN 24 H, Creatinine 0.98, Estim Creat Clear Calc 83.88, Est GFR (MDRD) Af Amer 98, Est GFR (MDRD) Non-Af 81, BUN/Creatinine Ratio 24.5 H, Glucose 132 H, Calcium 10.2 H, Total Bilirubin 0.30, AST 16, ALT 11 L, Alkaline Phosphatase 69, C-React Prot Ext Range 184.00 H, Total Protein 7.0, Albumin 1.6 L, Globulin 5.4 H, Albumin/Globulin Ratio 0.3 L 08/09/22 04:32: Random Vancomycin 15.4 H 08/09/22 06:53: Crossmatch See Detail Micro: Microbiology 08/03/22 18:55 Blood Culture (Wb) - Left Forearm Blood Culture - Final No growth in 5 days. 08/03/22 19:05 Blood Culture (Wb) - Left Wrist Blood Culture - Final No growth in 5 days. 08/04/22 00:01 Sputum, Expectorated/Coughed Gram Stain - Final 08/04/22 00:01 Sputum, Expectorated/Coughed Respiratory Culture - Final Meth. resistant Staph. aureus 08/03/22 20:10 Urine, Clean Catch Urine Culture - Final Culture exhibits no growth. 08/03/22 20:10 Urine, Random Legionella Antigen - Final 08/03/22 20:10 Urine, Random Streptococcus pneumoniae Antigen (M - Final 08/03/22 19:00 Nasal Secretion SARS-CoV-2 & FLU Antigen (Rapid) - Final Radiography Diagnostic Testing: Radiology Impression Thyroid Ultrasound 08/08/22 07:54 IMPRESSION: Nondiagnostic thyroid ultrasound due to nonvisualization of the thyroid gland. This is due to patient''s body habitus and condition. Electronically Signed: Vipul Christiansen MD at 14:24 EDT , Physical Exam Const alert, oriented x3 and no apparent distress General Appearance: cooperative, comfortable and well kempt Neck full ROM General: normal visual inspection Cardio peripheral pulses 2+ throughout GI soft to palpation, non-tender and non-distended Back/Spine Cervical Spine: cervical ROM normal Thoracic Spine / Upper Back: normal to inspection Lumbar Spine / Lower Back: normal to inspection Extremity normal to inspection, full ROM and normal capillary refill Neuro oriented x3, moves all extremities, no focal motor deficits, no sensory deficits noted and deep tendon reflexes 2+ bilaterally Neuro Narrative: Negative Latanya, negative Babinski. Generalized weakness noted in all 4 extremities but no focal motor deficits noted. Motor Exam: muscle tone normal throughout Assessment & Plan Assessment/Plan (1) Cervical spondylosis: PLAN: I had a lengthy discussion with the patient. I still recommend a cervical MRI for evaluation of possible cervical stenosis. He is scheduled to have his MRI. I will review it once it is done for further evaluation and discuss treatment options if needed. He understands and agrees with the treatment plan
--- NOTE | 2022-08-09 07:48 | PCM.RX.CS ---
Consult Pharmacy has been consulted to manage selected antiobiotic: Vancomycin Type of Consult: Follow-up Labs: Sodium 140 mmol/L (136-145) 08/09/22 04:32 Potassium 3.4 mmol/L (3.5-5.1) L 08/09/22 04:32 Chloride 108 mmol/L (98-107) H 08/09/22 04:32 Carbon Dioxide 27.0 mmol/L (21.0-32.0) 08/09/22 04:32 Anion Gap 5 (5-15) 08/09/22 04:32 BUN 24 mg/dL (7-18) H 08/09/22 04:32 Creatinine 0.98 mg/dL (0.70-1.30) 08/09/22 04:32 Est GFR (MDRD) Af Amer 98 mL/min (>60) 08/09/22 04:32 Est GFR (MDRD) Non-Af 81 mL/min (>60) 08/09/22 04:32 BUN/Creatinine Ratio 24.5 RATIO (10-20) H 08/09/22 04:32 Glucose 132 mg/dL (74-106) H 08/09/22 04:32 Vancomycin Trough 26.4 ug/mL (5.0-15.0) H 08/08/22 08:15 Random Vancomycin 15.4 ug/mL (0.0-15.0) H 08/09/22 04:32 Microbiology: Microbiology 08/03/22 18:55 Blood Culture (Wb) - Left Forearm Blood Culture - Final No growth in 5 days. 08/03/22 19:05 Blood Culture (Wb) - Left Wrist Blood Culture - Final No growth in 5 days. 08/04/22 00:01 Sputum, Expectorated/Coughed Gram Stain - Final 08/04/22 00:01 Sputum, Expectorated/Coughed Respiratory Culture - Final Meth. resistant Staph. aureus 08/03/22 20:10 Urine, Clean Catch Urine Culture - Final Culture exhibits no growth. 08/03/22 20:10 Urine, Random Legionella Antigen - Final 08/03/22 20:10 Urine, Random Streptococcus pneumoniae Antigen (M - Final 08/03/22 19:00 Nasal Secretion SARS-CoV-2 & FLU Antigen (Rapid) - Final Goal Trough: 15-20 mcg/mL Pharmacy Plan for Drug Dosing: VANCOMYCIN LEVEL RECEIVED Current Vancomycin Dose: ON HOLD d/t elevated trough value yesterday Number of Doses Received: ON HOLD Vancomycin Level: 15.4 Hours Since Last Dose: ~32hr Renal Function: 0.98 Renal Function Trend: improving from admission, currently stable Lab/Micro: 08/04 SCx (+) MRSA, sensitive to vancomycin Vancomycin Plan/Comments: Patient's vancomycin has been on hold d/t elevated trough previously. Trough today is 15.4, within therapeutic goal (Goal 15-20). Will resume vancomycin at this time. Will start patient on vancomycin 1500mg IV Q24hr to start 08/09/22 @0800 Pending Level: 08/11/22 @0730, prior to 3rd total dose of new regimen per protocol Pharmacy Service will continue to monitor and adjust dosing as required.
[2022-08-09] MEDS: Potassium Chloride 10mEq/100mL 10 MEQ/100 ML IV.SOLN. 100 MEQ IV BOLUS (08:51)
--- NOTE | 2022-08-09 08:52 | CASEMGMT ---
Updates sent to [facility]. Plan is for patient to return to [facility]. Per [facility] patient does not need a pre-cert to return. Ashley Ochoa MSW [facility]
[2022-08-09 09:08] LABS: Partial Thromboplast Time 73.1 Seconds (24.1-36.2)
[2022-08-09] MEDS: dilTIAZem CD 120 MG Capsule PO ×2 (10:00→20:44)
[2022-08-09] MEDS: Multivitamins,Ther W-Minerals Tablet 1 TABLET PO (10:00)
[2022-08-09] MEDS: guaiFENesin 1,200 MG Tablet 1200 MG PO ×2 (10:00→20:24)
[2022-08-09] MEDS: sulfaSALAzine 500 MG Tablet 1000 MG PO (10:01)
[2022-08-09] MEDS: Fenofibrate 48 MG Tablet PO (10:01)
[2022-08-09] MEDS: busPIRone 15 MG TABLET PO ×2 (10:01→20:24)
[2022-08-09] MEDS: Ferrous Sulfate 325 MG Tablet PO ×2 (10:01→18:09)
[2022-08-09] MEDS: Spironolactone 25 MG Tablet PO (10:02)
[2022-08-09] MEDS: Nystatin Powder 15gm Bottle 1 APPLIC TOPICAL ×2 (10:08→20:25)
[2022-08-09] MEDS: Menthol/Lanolin/Calamine/Znox 113 GM Tube 1 APPLIC TOPICAL ×2 (10:09→20:26)
[2022-08-09] MEDS: azaTHIOprine 50 MG Tablet PO ×2 (10:20→20:25)
[2022-08-09] MEDS: Cyanocobalamin 500 MCG Tablet 1000 MCG PO (10:21)
[2022-08-09] MEDS: Furosemide 40 MG/4 ML Vial IV ×2 (10:30→18:09)
--- NOTE | 2022-08-09 12:32 | PCM.PN.ID ---
Physical Exam Narrative Feeling better, family at bedside, mild neck pain, no fever, some cough Const alert and no apparent distress General Appearance: cooperative Resp normal air movement and clear to auscultation bilaterally Cardio regular rate and regular rhythm GI soft to palpation, non-tender and non-distended Skin no rashes or lesions noted ID ID: Route of nutrition/ use of supplements: [] Nutritional Intake: [] IV Site: [] Smith Catheter: [] Assessment & Plan Assessment/Plan (1) Pneumonia: QUALIFIERS: Pneumonia type: due to unspecified organism Laterality: left Lung location: lower lobe of lung Qualified Code(s): J18.9 - Pneumonia, unspecified organism PLAN: MRSA pneumonia - cont with vanc tremors, encephalopathy - Neuro following. Will cover for meningitis at this point, 08/07/22 added ceftriaxone and iv acyclovir. Would recommend LP if possible. Mental status much improved today, still some tremors. Will follow, d/w nursing
[2022-08-09] MEDS: CALCITONIN,SALMON,SYNTHETIC 400 UNIT/2 ML VIAL IM (14:10)
[2022-08-09 15:08] LABS: Angiotensin Convert Enzyme 31 U/L (14-82)
[2022-08-09 16:09] LABS: Albumin 1.9 g/dL (2.9-4.4); Alpha-1-Globulins 0.4 g/dL (0.0-0.4); Immunoglobulin A 626 mg/dL (61-437); Immunoglobulin G 2053 mg/dL (603-1613); Immunoglobulin M 100 mg/dL (20-172); PROEL- TOTAL PROTEIN 6.5 g/dL (6.0-8.5)
[2022-08-09 16:17] LABS: Partial Thromboplast Time 97.8 Seconds (24.1-36.2)
[2022-08-09 18:35] LABS: Absolute Neutrophil Count 9.3 X10^3/uL (2.0-7.7); Basophil# 0.07 X10^3/uL; Basophil% 0.6 % (0-1); Eosinophil# 0.36 X10^3/uL; Hematocrit 25.9 % (40-54); Hemoglobin 8.2 g/dL (13.0-16.5); Lymphocyte % 9.3 % (19-41); Mean Corp Hgb Conc 31.7 g/dL (32-36); Mean Corpuscular Hgb 26.8 pg (27.0-32.0); Mean Corpuscular Volume 84.6 fL (80-94); Mean Platelet Vol. 8.8 fl (6.2-12.0); Monocyte# 0.87 X10^3/uL; Monocyte% 7.4 % (0-10); NRBC Flagged by Analyzer 0.6 % (0-5); Neutrophil # 9.26 X10^3/uL (2.7-7.7); Neutrophil % 78.3 % (47-70); Platelet Count 440 K/mm3 (150-450); RBC Distribution Width CV 16.8 % (11.6-14.6); RBC Distribution Width SD 51.3 fl (35.1-43.9); Red Blood Count 3.06 M/mm3 (4.6-6.2); White Blood Count 11.8 K/mm3 (4.4-11.0)
[2022-08-09 19:01] LABS: ALB/GLOB Ratio 0.3 RATIO (0.9-2.4); AST(SGOT) 15 U/L (15-37); Alanine Aminotransfer ALT/SGPT 11 U/L (16-61); Albumin, Serum 1.6 g/dL (3.2-5.0); Alkaline Phosphatase 74 U/L (45-117); Anion Gap 6 (5-15); BUN 23 mg/dL (7-18); BUN/Creat Ratio 23.1 RATIO (10-20); Calcium,Total 9.9 mg/dL (8.5-10.1); Chloride 106 mmol/L (98-107); Creatinine, Serum 0.99 mg/dL (0.70-1.30); EST Glomerular Filtration Rate 79 mL/min (>60); Est Glom Filt Rate - Afr Amer 96 mL/min (>60); Estimated Creatinine Clearance 83.03 ml/min; Globulin 5.8 g/dL (2.2-4.2); Glucose 144 mg/dL (74-106); Potassium 3.4 mmol/L (3.5-5.1); Protein, Total 7.4 g/dL (6.4-8.2); Sodium Level 138 mmol/L (136-145)
[2022-08-09] MEDS: MELATONIN 10 MG TABLET 5 MG PO (20:24)
[2022-08-09] MEDS: Atorvastatin Calcium 40 MG Tablet PO (20:25)
[2022-08-09] MEDS: HEPARIN/D5w 25,000 UNITS 25,000 UNITS/250 ML IV.SOLN. 11 UNITS CONT INF (20:27)
[2022-08-09] MEDS: Acetaminophen 325 MG Tablet 650 MG PO (20:35)
--- NOTE | 2022-08-09 23:45 | CPS ---
Patient refused PAP therapy for the night. On 3L 95%
--- NOTE | 2022-08-09 23:55 | NURSING ---
2230: pt educated, but still refusing to wear BiPAP tonight
[2022-08-10] VITALS (17 sets, daily range): BP systolic 99–144; BP diastolic 68–105; PULSE 87–125; RESP 12–28; TEMP 36.9–37.6; O2SAT 92–99; BMI 38.9
[2022-08-10 00:42] LABS: Partial Thromboplast Time 77.4 Seconds (24.1-36.2)
[2022-08-10 04:14] LABS: Absolute Lymphocyte Count 1.03 X10^3/uL (0.83-4.51); Absolute Neutrophil Count 9.5 X10^3/uL (2.0-7.7); Basophil# 0.05 X10^3/uL; Basophil% 0.4 % (0-1); Eosinophil# 0.34 X10^3/uL; Eosinophils% 2.8 % (0-5); Hematocrit 25.7 % (40-54); Hemoglobin 8.2 g/dL (13.0-16.5); Lymphocyte # 1.03 X10^3/ul (0.83-4.51); Lymphocyte % 8.6 % (19-41); Mean Corp Hgb Conc 31.9 g/dL (32-36); Mean Corpuscular Hgb 27.1 pg (27.0-32.0); Mean Corpuscular Volume 84.8 fL (80-94); Mean Platelet Vol. 8.4 fl (6.2-12.0); Monocyte# 0.89 X10^3/uL; Monocyte% 7.4 % (0-10); NRBC Flagged by Analyzer 0.2 % (0-5); Neutrophil % 79.1 % (47-70); Platelet Count 413 K/mm3 (150-450); RBC Distribution Width SD 52.2 fl (35.1-43.9); Red Blood Count 3.03 M/mm3 (4.6-6.2)
[2022-08-10 04:23] LABS: Erythrocyte Sedimentation Rate 94 mm/hr (0-20)
[2022-08-10 04:27] LABS: Phosphorus 3.5 mg/dL (2.5-4.9)
[2022-08-10 04:34] LABS: ALB/GLOB Ratio 0.3 RATIO (0.9-2.4); AST(SGOT) 20 U/L (15-37); Alanine Aminotransfer ALT/SGPT 13 U/L (16-61); Albumin, Serum 1.6 g/dL (3.2-5.0); Alkaline Phosphatase 69 U/L (45-117); Anion Gap 4 (5-15); BUN 23 mg/dL (7-18); BUN/Creat Ratio 24.7 RATIO (10-20); Chloride 107 mmol/L (98-107); Creatinine, Serum 0.93 mg/dL (0.70-1.30); EST Glomerular Filtration Rate 86 mL/min (>60); Est Glom Filt Rate - Afr Amer 103 mL/min (>60); Estimated Creatinine Clearance 88.39 ml/min; Globulin 5.6 g/dL (2.2-4.2); Glucose 145 mg/dL (74-106); Magnesium 1.8 mg/dL (1.6-2.6); Potassium 3.4 mmol/L (3.5-5.1); Protein, Total 7.2 g/dL (6.4-8.2); Sodium Level 138 mmol/L (136-145)
--- NOTE | 2022-08-10 06:02 | PN.CC_ITS ---
Assessment & Plan Assessment/Plan (1) Pneumonia: QUALIFIERS: Pneumonia type: due to unspecified organism Laterality: left Lung location: lower lobe of lung Qualified Code(s): J18.9 - Pneumonia, unspecified organism PLAN: Plan RECOMMENDATIONS: 1. Continue antimicrobials per ID recommendations. 2. Avoid sedating medications. 3. Continue BiPAP therapy with naps and nightly. Okay to wean to nasal cannula oxygen today as tolerated. 4. Supplemental oxygen to maintain saturations at or above 90%. 5. Continue beta-zaira and IV diuresis as tolerated by hemodynamics and renal function. 6. Encourage incentive spirometer use and mobilize patient as tolerated. 7. The patient is medically stable for transfer out of the intensive care unit. IMPRESSIONS: 1. MRSA pneumonia Continue supportive measures with antimicrobials under the discretion of infectious diseases. 2. Encephalopathy Likely metabolic in etiology in the setting #1. ABG was within normal limits. However, the patient was already on BiPAP therapy at that time. Regardless, the patient's mentation improved with noninvasive positive pressure ventilatory support. This could certainly suggest that the patient may have experienced an acute event of CO2 retention. Continue supportive measures. Recommend nocturnal BiPAP support. 3. Intermittent tremors/spasms of unclear etiology Neuro work-up has been largely unrevealing. Defer additional work-up to hospita list and neurology team. 4. Questionable history of obstructive sleep apnea The patient reportedly had a sleep study previously but has been unable to tolerate any form of conventional PAP therapy. I do suspect that the apneic events reported overnight were related to his untreated sleep apnea. Therefore, I would strongly recommend utilization of BiPAP therapy with naps and nightly. 5. History of heart failure with reduced ejection fraction/Graves' d isease/chronic kidney disease/rheumatoid arthritis Complicates care, management, recovery and prognosis. Continue supportive measures as noted above. This note was generated with [employer] dictation software. It may contain incorrect words, spelling, and punctuation that were not noted in checking the note before signing. Subjective Subjective The patient was seen and examined at the bedside this morning. Events from the last 24 hours have been reviewed. The patient is currently afebrile, hemodynamically stable and maintaining appropriate oxygen saturations on 3 L/min via nasal cannula. The patient is much more alert and interactive this morning. He refused to wear his BiPAP overnight. The patient is requesting to get out of bed and sit in the bedside recliner, but readily admitted he is not able to bear weight or ambulate. Potassium is again low at 3.4. Creatinine is normal. Objective Data Objective Data The patient's most recent lab work, culture data and imaging studies have all been personally reviewed. Surface echocardiogram demonstrated normal LV size with mild global systolic dysfunction with an ejection fraction of 47%. Pulmonary artery systolic pressure was estimated to be 30 mmHg. Sputum culture dated August 04 was positive for MRSA. Vital Signs: Vital Signs Temp Pulse Resp BP Pulse Ox O2 Del Method O2 Flow Rate 98.9 F 111 H 20 H 124/105 H 98 Nasal Cannula 3 08/10/22 05:00 08/10/22 05:00 08/10/22 05:00 08/10/22 05:00 08/10/22 05:00 08/10/22 05:00 08/10/22 05:00 FiO2 30 08/09/22 07:00 Oxygen Flow Rate (L/min) 3 Oxygen Delivery Method Nasal Cannula Weight: 303 lb 9.224 oz Body Mass Index (BMI) 38.9 Intake & Output: Intake and Output for Last 24 Hours 08/08/22 08/09/22 08/10/22 23:59 23:59 23:59 Intake Total 4646.5667 / 4646.5667 2512.88 / 2512.88 47.12 / 47.12 Output Total 2140 / 2140 1500 / 1500 300 / 300 Balance 2506.5667 / 2506.5667 1012.88 / 1012.88 -252.88 / -252.88 Lab / Micro Data Attestation: I reviewed the patient's lab results. Result Diagrams: 08/10/22 04:00 08/10/22 04:00 Labs: Laboratory Results - last 24 hr 08/08/22 08:33: Total Protein (PEP) 6.5, Globulin 4.6 H, IgG 2053 H, IgA 626 H, IgM 100, Immunofixation Screen Comment, Albumin (CRISS) 1.9 L, Albumin/Globulin (CRISS) 0.5 L, [id number] CRISS 0.4, Bpxiz-[id number] CRISS 1.0, Beta- Globulins (CRISS) 1.1, Gamma Globulins (CRISS) 2.0 H, CRISS Comments Comment 08/08/22 08:33: Angiotensin Convert Enz 31 08/09/22 06:53: Blood Type O POSITIVE, Antibody Screen NEGATIVE, Crossmatch See Detail 08/09/22 08:30: APTT 73.1 H 08/09/22 15:02: APTT 97.8 H* 08/09/22 18:10: WBC 11.8 H, RBC 3.06 L, Hgb 8.2 L, Hct 25.9 L, MCV 84.6, MCH 26.8 L, MCHC 31.7 L, RDW Std Deviation 51.3 H, RDW Coeff of Trev 16.8 H, Plt Count 440, MPV 8.8, Immature Gran % (Auto) 1.400 H, Neut % (Auto) 78.3 H, Lymph % (Auto) 9.3 L, Norman % (Auto) 7.4, Eos % (Auto) 3.0, Baso % (Auto) 0.6, Absolute Neuts (auto) 9.3 H, Absolute Lymphs (auto) 1.10, Nucleated RBC % 0.6 08/09/22 18:10: Sodium 138, Potassium 3.4 L, Chloride 106, Carbon Dioxide 26.0, Anion Gap 6, BUN 23 H, Creatinine 0.99, Estim Creat Clear Calc 83.03, Est GFR (MDRD) Af Amer 96, Est GFR (MDRD) Non-Af 79, BUN/Creatinine Ratio 23.1 H, Glucose 144 H, Calcium 9.9, Total Bilirubin 0.30, AST 15, ALT 11 L, Alkaline Phosphatase 74, Total Protein 7.4, Albumin 1.6 L, Globulin 5.8 H, Albumin/Globulin Ratio 0.3 L 08/09/22 23:45: APTT 77.4 H 08/10/22 04:00: WBC 12.0 H, RBC 3.03 L, Hgb 8.2 L, Hct 25.7 L, MCV 84.8, MCH 27.1, MCHC 31.9 L, RDW Std Deviation 52.2 H, RDW Coeff of Trev 17.0 H, Plt Count 413, MPV 8.4, Immature Gran % (Auto) 1.700 H, Neut % (Auto) 79.1 H, Lymph % (Auto) 8.6 L, Norman % (Auto) 7.4, Eos % (Auto) 2.8, Baso % (Auto) 0.4, Absolute Neuts (auto) 9.5 H, Absolute Lymphs (auto) 1.03, Nucleated RBC % 0.2, ESR 94 H 08/10/22 04:00: Sodium 138, Potassium 3.4 L, Chloride 107, Carbon Dioxide 27.0, Anion Gap 4 L, BUN 23 H, Creatinine 0.93, Estim Creat Clear Calc 88.39, Est GFR (MDRD) Af Amer 103, Est GFR (MDRD) Non-Af 86, BUN/Creatinine Ratio 24.7 H, Glucose 145 H, Calcium 9.0, Magnesium 1.8, Total Bilirubin 0.30, AST 20, ALT 13 L, Alkaline Phosphatase 69, C-React Prot Ext Range 156.00 H, Total Protein 7.2, Albumin 1.6 L, Globulin 5.6 H, Albumin/Globulin Ratio 0.3 L 08/10/22 04:00: Phosphorus 3.5 Micro: Microbiology 08/03/22 18:55 Blood Culture (Wb) - Left Forearm Blood Culture - Final No growth in 5 days. 08/03/22 19:05 Blood Culture (Wb) - Left Wrist Blood Culture - Final No growth in 5 days. 08/04/22 00:01 Sputum, Expectorated/Coughed Gram Stain - Final 08/04/22 00:01 Sputum, Expectorated/Coughed Respiratory Culture - Final Meth. resistant Staph. aureus 08/03/22 20:10 Urine, Clean Catch Urine Culture - Final Culture exhibits no growth. 08/03/22 20:10 Urine, Random Legionella Antigen - Final 08/03/22 20:10 Urine, Random Streptococcus pneumoniae Antigen (M - Final 08/03/22 19:00 Nasal Secretion SARS-CoV-2 & FLU Antigen (Rapid) - Final ABG Data ABG results: ABG 08/07/22 08:43 Specimen Type ART Sample Site L Radial pH 7.38 Bicarbonate Actual 24.8 Total CO2 26 Base Excess 0 O2 Saturation 98 ABG pCO2 42.0 ABG pO2 104 H William Test Positive O2 Delivery Device Cannula Liter Flow 5.0 Radiography Diagnostic Testing: Radiology Impression Thyroid Ultrasound 08/08/22 07:54 IMPRESSION: Nondiagnostic thyroid ultrasound due to nonvisualization of the thyroid gland. This is due to patient''s body habitus and condition. Electronically Signed: Vipul Christiansen MD at 14:24 EDT , Physical Exam Const alert and no apparent distress General Appearance: cooperative Nutritional Appearance: obese HEENT normocephalic and head/scalp atraumatic Eyes PERRL, EOMs intact bilaterally and conjunctivae normal Neck supple General: trachea midline Chest inspection of chest normal Resp normal respiratory effort Auscultation: diminished lung sounds; Negative for rales, rhonchi or wheezes Cardio S1 normal heart sound and S2 normal heart sound Rate: tachycardic Rhythm: abnormal rhythm GI normal to inspection, nondistended, normoactive bowel sounds Extremity General Extremity: Negative for clubbing Skin General Skin Exam: venous stasis and dermatitis Neuro CN's II-XII intact bilaterally, moves all extremities and no focal motor deficits Psych cooperative and affect normal Charges/Coding Visit Charges Inpatient E&M: 60357 Subs Hosp L2
[2022-08-10] MEDS: Potassium Chloride 10mEq/100mL 10 MEQ/100 ML IV.SOLN. 100 MEQ IV BOLUS ×4 (06:41→10:07)
[2022-08-10] MEDS: ACYCLOVIR IV ×3 (06:41→21:48)
[2022-08-10] MEDS: DEXTROSE 5% IV ×3 (06:41→21:48)
--- NOTE | 2022-08-10 06:59 | PCM.PN.HOSP ---
Reason for Visit Reason for Visit: Diagnoses Hypokalemia (08/03/22) Unspecified atrial fibrillation (08/03/22) Pneumonia, unspecified organism (08/03/22) Spondylosis without myelopathy or radiculopathy, cervical region (08/03/22) Spondylosis without myelopathy or radiculopathy, thoracic region (08/03/22) Spondylosis without myelopathy or radiculopathy, lumbar region (08/03/22) Subjective Subjective More awake and alert today, answering questions appropriately. Did not wear BiPAP last night, stressed importance of this. Patient reports his back is hurting would like to get up in the chair but is a Sallie lift assistance, discussed with staff and patient. Now that patient is improving from a mental status mobility standpoint may be able to consider alternate ways to help patient with mobility and if at all possible up to chair Objective Data Objective Data Vital Signs: Vital Signs Temp Pulse Resp BP Pulse Ox O2 Del Method O2 Flow Rate 99 F 101 H 24 H 142/78 H 92 Nasal Cannula 3 08/10/22 06:00 08/10/22 06:00 08/10/22 06:00 08/10/22 06:00 08/10/22 06:00 08/10/22 06:00 08/10/22 06:00 FiO2 30 08/09/22 07:00 Oxygen Flow Rate (L/min) 3 Oxygen Delivery Method Nasal Cannula Weight: 137.7 kg Body Mass Index (BMI) 38.9 Intake & Output: Intake and Output for Last 24 Hours 08/08/22 08/09/22 08/10/22 23:59 23:59 23:59 Intake Total 4646.5667 / 4646.5667 2512.88 / 2512.88 47.12 / 47.12 Output Total 2140 / 2140 1500 / 1500 300 / 300 Balance 2506.5667 / 2506.5667 1012.88 / 1012.88 -252.88 / -252.88 Lab / Micro Data Result Diagrams: 08/10/22 04:00 08/10/22 04:00 Labs: Laboratory Results - last 24 hr 08/08/22 08:33: Total Protein (PEP) 6.5, Globulin 4.6 H, IgG 2053 H, IgA 626 H, IgM 100, Immunofixation Screen Comment, Albumin (CRISS) 1.9 L, Albumin/Globulin (CRISS) 0.5 L, Dovln-7-Jqfliyvko CRISS 0.4, Jrgaj-2-Mpxcmsslh CRISS 1.0, Beta-Globulins (CRISS) 1.1, Gamma Globulins (CRISS) 2.0 H, CRISS Comments Comment 08/08/22 08:33: Angiotensin Convert Enz 31 08/09/22 06:53: Blood Type O POSITIVE, Antibody Screen NEGATIVE, Crossmatch See Detail 08/09/22 08:30: APTT 73.1 H 08/09/22 15:02: APTT 97.8 H* 08/09/22 18:10: WBC 11.8 H, RBC 3.06 L, Hgb 8.2 L, Hct 25.9 L, MCV 84.6, MCH 26.8 L, MCHC 31.7 L, RDW Std Deviation 51.3 H, RDW Coeff of Trev 16.8 H, Plt Count 440, MPV 8.8, Immature Gran % (Auto) 1.400 H, Neut % (Auto) 78.3 H, Lymph % (Auto) 9.3 L, Candler % (Auto) 7.4, Eos % (Auto) 3.0, Baso % (Auto) 0.6, Absolute Neuts (auto) 9.3 H, Absolute Lymphs (auto) 1.10, Nucleated RBC % 0.6 08/09/22 18:10: Sodium 138, Potassium 3.4 L, Chloride 106, Carbon Dioxide 26.0, Anion Gap 6, BUN 23 H, Creatinine 0.99, Estim Creat Clear Calc 83.03, Est GFR (MDRD) Af Amer 96, Est GFR (MDRD) Non-Af 79, BUN/Creatinine Ratio 23.1 H, Glucose 144 H, Calcium 9.9, Total Bilirubin 0.30, AST 15, ALT 11 L, Alkaline Phosphatase 74, Total Protein 7.4, Albumin 1.6 L, Globulin 5.8 H, Albumin/Globulin Ratio 0.3 L 08/09/22 23:45: APTT 77.4 H 08/10/22 04:00: WBC 12.0 H, RBC 3.03 L, Hgb 8.2 L, Hct 25.7 L, MCV 84.8, MCH 27.1, MCHC 31.9 L, RDW Std Deviation 52.2 H, RDW Coeff of Trev 17.0 H, Plt Count 413, MPV 8.4, Immature Gran % (Auto) 1.700 H, Neut % (Auto) 79.1 H, Lymph % (Auto) 8.6 L, Candler % (Auto) 7.4, Eos % (Auto) 2.8, Baso % (Auto) 0.4, Absolute Neuts (auto) 9.5 H, Absolute Lymphs (auto) 1.03, Nucleated RBC % 0.2, ESR 94 H 08/10/22 04:00: Sodium 138, Potassium 3.4 L, Chloride 107, Carbon Dioxide 27.0, Anion Gap 4 L, BUN 23 H, Creatinine 0.93, Estim Creat Clear Calc 88.39, Est GFR (MDRD) Af Amer 103, Est GFR (MDRD) Non-Af 86, BUN/Creatinine Ratio 24.7 H, Glucose 145 H, Calcium 9.0, Magnesium 1.8, Total Bilirubin 0.30, AST 20, ALT 13 L, Alkaline Phosphatase 69, C-React Prot Ext Range 156.00 H, Total Protein 7.2, Albumin 1.6 L, Globulin 5.6 H, Albumin/Globulin Ratio 0.3 L 08/10/22 04:00: Phosphorus 3.5 Micro: Microbiology 08/03/22 18:55 Blood Culture (Wb) - Left Forearm Blood Culture - Final No growth in 5 days. 08/03/22 19:05 Blood Culture (Wb) - Left Wrist Blood Culture - Final No growth in 5 days. 08/04/22 00:01 Sputum, Expectorated/Coughed Gram Stain - Final 08/04/22 00:01 Sputum, Expectorated/Coughed Respiratory Culture - Final Meth. resistant Staph. aureus 08/03/22 20:10 Urine, Clean Catch Urine Culture - Final Culture exhibits no growth. 08/03/22 20:10 Urine, Random Legionella Antigen - Final 08/03/22 20:10 Urine, Random Streptococcus pneumoniae Antigen (M - Final 08/03/22 19:00 Nasal Secretion SARS-CoV-2 & FLU Antigen (Rapid) - Final Physical Exam Narrative General: More awake and appropriate today HEENT: Atraumatic, normocephalic Eyes: Anicteric, normal conjunctiva, extraocular movements grossly intact, Neck: Supple Respiratory: Wearing nasal cannula, somewhat coarse on the right thumb better, somewhat more diminished left greater than right Cardiovascular: Heart rate low 100s GI: Soft, nontender, nondistended Extremities: Minimal extremity edema Musculoskeletal: Moving all extremities Neuro: No overt focal neurological deficits, still has tremors/shakes Skin: Chronic changes in bilateral lower extremities Psych: Cooperative Assessment & Plan Assessment/Plan (1) Pneumonia: QUALIFIERS: Pneumonia type: due to unspecified organism Laterality: left Lung location: lower lobe of lung Qualified Code(s): J18.9 - Pneumonia, unspecified organism PLAN: Plan #Acute encephalopathy?improving -Likely mixed picture but presently concern for infectious etiology and/or hypercalcemia and there had been concern for toxic component of cefepime which has been discontinued -Has been seen by neurology twice, EEG obtained 08/05 demonstrated nonspecific slowing without any focal changes -MRI brain with chronic changes but no acute abnormalities -Ammonia within normal limits, liver function unremarkable -Had been on cefepime and vancomycin and cefepime was felt to potentially be contributing however this was discontinued and he has had continued encephalopathy -Neurology recontacted 08/07 and recommended repeat EEG as well as coverage for possible meningitis and recommended LP -Presently on vancomycin, Rocephin, acyclovir -repeat EEG 08/07 again demonstrated mild generalized background slowing -Polo DC'd 08/07 for LP and will need at least 48 to 72 hours prior to IR performing LP, currently being bridged with heparin -B12 had been borderline, will replace, will also give folic acid and thiamine especially given albumin of 1.7, likely has nutritional deficiencies, prealbumin 3.2 -ESR and CRP elevated, will trend to assess for improving versus worsening status -08/09: CRP downtrending, ESR did increase slightly but overall clinically significantly improved over the past 2 days on current management -08/10: Received calcitonin, status post bisphosphonate, remains on antibiotics. Significantly improving over past several days, continue current management. Stressed importance of BiPAP nightly to avoid CO2 retention and decompensation and patient verbalizes understanding. Patient wary of pursuing LP given symptoms and improvement query meningitis versus combination of hypercalcemia and hypercapnia. Will assess again tomorrow and discuss options with patient #Hypercalcemia -Calcium 11 but corrected is 12.8, had been between 10.1-10.9 uncorrected since admission with no other noted recent elevations in calcium -PTH reported as <6.3 -We will check PTHrP, with elevation in calcium concerning to be symptomatic with undetectable PTH there is certainly concern for malignancy, check SPEP and UPEP, JANEEN -Vitamin D 25 levels 63.4 with a 1-25 of 11.8 -Thyroid study nondiagnostic due to body habitus and difficulty with exam, given undetectable PTH and low suspicion for hyperparathyroidism do not feel we need urgent parathyroid scan -If w/u unrevealing and suspicion for malignancy can consider chest CT as well -Patient has worsening hypercalcemia and based on symptomatology seems to have symptomatic hypercalcemia. Given his PTH is undetectable it does not seem to be due to hyperparathyroidism so do not feel Sensipar would be beneficial. He is now on Lasix, if becomes slightly volume depleted can continue fluids and Lasix to help with calcium excretion. Additionally will give bisphosphonate. Do not have subcu or IM calcitonin available, nasal calcitonin not helpful for acute symptomatic or severe hypercalcemia. Exploring options, if calcium is not improving tomorrow may need to try to order this or obtained from other hospital -Continue lasix -08/09: Corrected calcium is 12.1 and still symptomatic, given it was still take multiple days before pamidronate starts to help significantly we will start with a one-time dose of calcitonin 4 mg/kg IM or subcu and can recheck labs -08/10: Corrected calcium 10.9 today, given significant improvement in mental status and bisphosphonate should begin working we will hold on second dose of calcitonin with low threshold to give. Want to also avoid hypocalcemia. Continue to monitor. Once stable may need to undergo malignancy work-up pending PTHrP result #Chronic Normocytic anemia/Fe deficiency anemia -Admission hemoglobin 8.8 -folic acid 3.80 (low normal), vitamin B12 288 (low normal), Fe 19 (low), TIBC 220 (low), Fe sat 8.6% (low), Ferritin 1601 (elevated) -Continue iron supplementation -Also replace B12 -08/09: Slowly downtrending, has history of coronary artery disease and CABG and therefore has a transfusion threshold of 8, 7.7 this AM. We will transfuse 1 unit of packed red blood cells -08/10: Hemoglobin stable today #Afib w/ rvr -Presented initially with A-fib with RVR and required Cardizem and amiodarone drips, had complicated course but was eventually transitioned to oral medication though overlap with short acting Cardizem resulted in soft BP and ultimately was transitioned to long-acting Cardizem with improvement in overlap with oral amnio x3 doses however went back into RVR early in the morning on 08/08 and was placed back on Cardizem drip, Likely had repeated RVR due to patient being lethargic and not getting his Cardizem and metoprolol orally in the AM on 08/07. He has since been transitioned back to oral and is off Cardizem drip -Echocardiogram 08/04 with EF 47%, mild global left ventricular systolic dysfunction, mild to moderate eccentric mitral valve insufficiency, pulmonary artery systolic pressure 30 -TSH mildly elevated and free T4 also slightly elevated however given acute presentation of critical illness would benefit from repeat thyroid function studies outpatient once #1 resolves and if persistent may need further work-up/evaluation -08/09: Had soft BP overnight which is likely multifactorial, if at all possible will be important he gets metoprolol to avoid going back in RVR. Continue to address underlying problem -08/10: Did not receive metoprolol yesterday, heart rate 130s, did receive a.m. medication. If heart rate improves and does not go back in RVR can likely transfer to floor later today #Diffuse tremors -Has been evaluated by neurology twice -EEG with nonspecific changes -Ortho evaluated due to cervical narrowing -MRI brain unrevealing for cause -Replace B12, replace underlying electrolytes -Assess for cause of hypercalcemia as this is likely high cause or contributor -08/09: As above -08/10: Improving with improvement in calcium #apneic episodes on top of chronic hypoxic respiratory failure -On 2 L nasal cannula baseline -Had 2 be transferred to the ICU with BiPAP 08/07 due to worsening mental status and difficulty managing secretions and several apneic periods -ABG fairly unrevealing chest x-ray with improving central pulmonary edema with mild residual bibasilar atelectasis -Was noted to be up 7.6 L since presentation, on IV Lasix and spironolactone -Continue BiPAP prn and would benefit from qhs as well -ICU team following -08/09: Remains in ICU, tolerated BiPAP last night -08/10: Did not wear BiPAP last night, stressed importance of this and reason for him to wear it, he verbalized understanding #Cervical spondylosis -CT of the cervical and thoracic spine dated 08/01/2022 shows degenerative changes at multiple levels with loss of disc height, disc osteophyte complex formation and facet arthrosis -Evaluated by orthospine 08/07 and recommended further MRI imaging to rule out significant central stenosis or myelopathy however patient acutely decompensated 08/07 was transferred to the ICU and was unable to obtain MRI imaging at this time -08/09: Patient not clinically able to obtain MRI at this time, complete when stable enough to obtain MRI inpatient versus follow-up outpatient #Acute on Chronic systolic CHF Exacerbation -Continue IV lasix and spironolactone -Continue to optimize volume status and medical management -In order to avoid low BP will stop lisinopril while titrating other medications for heart failure -08/09: Presently being diuresed. Can always consider giving fluids with diuresis if he becomes euvolemic given need to continue to decrease calcium #History of rheumatoid arthritis -Presently on sulfasalazine and azathioprine #History of Graves' disease -Documented in history with unclear course or interventions -TSH mildly elevated and free T4 also slightly elevated however given acute presentation of critical illness would benefit from repeat thyroid function studies outpatient once #1 resolves and if persistent may need further work-up/evaluation -Appears to possibly been on methimazole in the past but his not filled this for multiple months #MRSA pneumonia -Sputum culture 08/04 positive for MRSA -On vancomycin -Infectious disease following #Hx CAD s/p CABG and PCI -Continue statin and metoprolol -We will be holding home Xarelto #Hx bowel perforation s/p partial colectomy #GERD w/ Hx GI bleed/gastric ulcers -Due to lethargy and mental status and consistently getting oral medications, will change PPI to IV #DVT ppx: hep gtt due to Xarelto being held Hailey Jaimes MD Time spent in the patient's overall evaluation,decision-making process, review of diagnostic data, adjustment of management, discussion with other providers, nursing nursing and ancillary staff involved in patient's care documentation, 37minutes Charges/Coding Visit Charges Inpatient E&M: [id number] [facility] L3
[2022-08-10 07:02] LABS: Partial Thromboplast Time 70.1 Seconds (24.1-36.2)
[2022-08-10] MEDS: 0.9% Saline Lock 10 ML Syringe IV ×4 (07:42→21:06)
[2022-08-10] MEDS: Magnesium Sulfate 4gm/100mL 4 GM/100 ML IV.SOLN. IV (07:42)
[2022-08-10] MEDS: Ferrous Sulfate 325 MG Tablet PO ×2 (07:45→18:13)
[2022-08-10] MEDS: Multivitamins,Ther W-Minerals Tablet 1 TABLET PO (07:48)
[2022-08-10] MEDS: Cyanocobalamin 500 MCG Tablet 1000 MCG PO (07:48)
[2022-08-10] MEDS: sulfaSALAzine 500 MG Tablet 1000 MG PO (07:48)
[2022-08-10] MEDS: Metoprolol(XL)Succ 200 MG Tablet PO (07:49)
[2022-08-10] MEDS: Spironolactone 25 MG Tablet PO (07:49)
[2022-08-10] MEDS: Menthol/Lanolin/Calamine/Znox 113 GM Tube 1 APPLIC TOPICAL ×2 (10:08→21:06)
[2022-08-10] MEDS: Nystatin Powder 15gm Bottle 1 APPLIC TOPICAL ×2 (10:10→21:06)
[2022-08-10] MEDS: busPIRone 15 MG TABLET PO ×2 (10:15→21:05)
[2022-08-10] MEDS: azaTHIOprine 50 MG Tablet PO ×2 (10:15→21:05)
[2022-08-10] MEDS: dilTIAZem CD 120 MG Capsule PO ×2 (10:15→21:05)
[2022-08-10] MEDS: Furosemide 40 MG/4 ML Vial IV ×2 (10:16→18:13)
[2022-08-10] MEDS: guaiFENesin 1,200 MG Tablet 1200 MG PO ×2 (10:16→21:05)
[2022-08-10] MEDS: Fenofibrate 48 MG Tablet PO (10:16)
[2022-08-10] MEDS: Acetaminophen 325 MG Tablet 650 MG PO ×2 (14:27→21:48)
[2022-08-10] MEDS: HEPARIN/D5w 25,000 UNITS 25,000 UNITS/250 ML IV.SOLN. 11 UNITS CONT INF (18:23)
[2022-08-10] MEDS: MELATONIN 10 MG TABLET 5 MG PO (21:05)
[2022-08-10] MEDS: Atorvastatin Calcium 40 MG Tablet PO (21:05)
[2022-08-11] VITALS (8 sets, daily range): BP systolic 109–125; BP diastolic 74–83; PULSE 90–126; RESP 18; TEMP 36.6–37.4; O2SAT 97–98; BMI 39.2
--- NOTE | 2022-08-11 01:59 | NURSING ---
Pt took bipap off, wore it for maybe 2hrs. Provided education about the benefits of wearing the bipap while he's asleep and how it can help lower his CO2 lvl. Pt states he gets claustrophobic and couldn't wear it any longer. Pt back on 3L NC, 02 sats @ 97%. Refused to go back on bipap at this time. Notified RT.
[2022-08-11] MEDS: ACYCLOVIR IV ×3 (06:03→22:30)
[2022-08-11] MEDS: 0.9% Saline Lock 10 ML Syringe IV ×4 (06:03→21:39)
[2022-08-11] MEDS: DEXTROSE 5% IV ×3 (06:03→22:30)
[2022-08-11] MEDS: Metoprolol(XL)Succ 200 MG Tablet PO (06:49)
[2022-08-11] MEDS: dilTIAZem CD 120 MG Capsule PO ×2 (06:49→21:42)
--- NOTE | 2022-08-11 07:29 | PN.HOSP_ITS ---
Reason for Visit Reason for Visit: Diagnoses Hypokalemia (08/03/22) Unspecified atrial fibrillation (08/03/22) Pneumonia, unspecified organism (08/03/22) Spondylosis without myelopathy or radiculopathy, cervical region (08/03/22) Spondylosis without myelopathy or radiculopathy, thoracic region (08/03/22) Spondylosis without myelopathy or radiculopathy, lumbar region (08/03/22) Subjective Subjective Progressively improving mental status castro and with his tremors Objective Data Objective Data Vital Signs: Vital Signs Temp Pulse Resp BP Pulse Ox O2 Del Method O2 Flow Rate 98.1 F 126 H 18 114/78 97 Nasal Cannula 3 08/11/22 03:23 08/11/22 06:49 08/11/22 03:23 08/11/22 06:49 08/11/22 03:23 08/11/22 03:23 08/11/22 03:23 FiO2 30 08/10/22 23:11 Oxygen Flow Rate (L/min) 3 Oxygen Delivery Method Nasal Cannula Weight: 138.8 kg Body Mass Index (BMI) 39.2 Intake & Output: Intake and Output for Last 24 Hours 08/09/22 08/10/22 08/11/22 23:59 23:59 23:59 Intake Total 2512.88 / 2512.88 3470.17 / 3470.17 266.4 / 266.4 Output Total 1500 / 1500 3150 / 3150 300 / 300 Balance 1012.88 / 1012.88 320.17 / 320.17 -33.6 / -33.6 Lab / Micro Data Result Diagrams: 08/11/22 07:30 08/11/22 07:30 Labs: Laboratory Results - last 24 hr 08/08/22 08:33: CRISS M-Jame Micro: Microbiology 08/03/22 18:55 Blood Culture (Wb) - Left Forearm Blood Culture - Final No growth in 5 days. 08/03/22 19:05 Blood Culture (Wb) - Left Wrist Blood Culture - Final No growth in 5 days. 08/04/22 00:01 Sputum, Expectorated/Coughed Gram Stain - Final 08/04/22 00:01 Sputum, Expectorated/Coughed Respiratory Culture - Final Meth. resistant Staph. aureus 08/03/22 20:10 Urine, Clean Catch Urine Culture - Final Culture exhibits no growth. 08/03/22 20:10 Urine, Random Legionella Antigen - Final 08/03/22 20:10 Urine, Random Streptococcus pneumoniae Antigen (M - Final 08/03/22 19:00 Nasal Secretion SARS-CoV-2 & FLU Antigen (Rapid) - Final Physical Exam Narrative General: Awake and alert HEENT: Atraumatic, normocephalic Eyes: Anicteric, normal conjunctiva, extraocular movements grossly intact, Neck: Supple Respiratory: Somewhat diminished, suspect in part due to body habitus Cardiovascular: Heart rate low 100s GI: Soft, nontender, nondistended Extremities: Minimal extremity edema Musculoskeletal: Moving all extremities Neuro: No overt focal neurological deficits, still has tremors/shakes but these are improving Skin: Chronic changes in bilateral lower extremities Psych: Cooperative Assessment & Plan Assessment/Plan (1) Pneumonia: QUALIFIERS: Laterality: left Lung location: lower lobe of lung Pneumonia type: due to unspecified organism Qualified Code(s): J18.9 - Pneumonia, unspecified organism PLAN: Plan #Acute encephalopathy?improving -Likely mixed picture but presently concern for infectious etiology and/or hypercalcemia and there had been concern for toxic component of cefepime which has been discontinued -Has been seen by neurology twice, EEG obtained 08/05 demonstrated nonspecific slowing without any focal changes -MRI brain with chronic changes but no acute abnormalities -Ammonia within normal limits, liver function unremarkable -Had been on cefepime and vancomycin and cefepime was felt to potentially be contributing however this was discontinued and he has had continued encephalopathy -Neurology recontacted 08/07 and recommended repeat EEG as well as coverage for possible meningitis and recommended LP -Presently on vancomycin, Rocephin, acyclovir -repeat EEG 08/07 again demonstrated mild generalized background slowing -Xarelto DC'd 08/07 for LP and will need at least 48 to 72 hours prior to IR performing LP, currently being bridged with heparin -B12 had been borderline, will replace, will also give folic acid and thiamine especially given albumin of 1.7, likely has nutritional deficiencies, prealbumin 3.2 -ESR and CRP elevated, will trend to assess for improving versus worsening status -08/09: CRP downtrending, ESR did increase slightly but overall clinically s ignificantly improved over the past 2 days on current management -08/10: Received calcitonin, status post bisphosphonate, remains on antibiotics. Significantly improving over past several days, continue current management. Stressed importance of BiPAP nightly to avoid CO2 retention and decompensation and patient verbalizes understanding. Patient wary of pursuing LP given symptoms and improvement query meningitis versus combination of hypercalcemia and hypercapnia. Will assess again tomorrow and discuss options with patient -08/11: Slowly improving with current measures. I discussed LP with patient several times. Unclear if underlying culprit was really meningitis, will discuss with ID as far as level of suspicion and necessity of LP given patient's difficulty with lying flat, body habitus, reluctance to pursue, direct improvement with improving calcium though confounded by time of antibiotics. If imperative will place order to have done with IR #Hypercalcemia -Calcium 11 but corrected is 12.8, had been between 10.1-10.9 uncorrected since admission with no other noted recent elevations in calcium -PTH reported as <6.3 -We will check PTHrP, with elevation in calcium concerning to be symptomatic with undetectable PTH there is certainly concern for malignancy, check SPEP and UPEP, JANEEN -Vitamin D 25 levels 63.4 with a 1-25 of 11.8 -Thyroid study nondiagnostic due to body habitus and difficulty with exam, given undetectable PTH and low suspicion for hyperparathyroidism do not feel we need urgent parathyroid scan -If w/u unrevealing and suspicion for malignancy can consider chest CT as well -Patient has worsening hypercalcemia and based on symptomatology seems to have symptomatic hypercalcemia. Given his PTH is undetectable it does not seem to be due to hyperparathyroidism so do not feel Sensipar would be beneficial. He is now on Lasix, if becomes slightly volume depleted can continue fluids and Lasix to help with calcium excretion. Additionally will give bisphosphonate. Do not have subcu or IM calcitonin available, nasal calcitonin not helpful for acute symptomatic or severe hypercalcemia. Exploring options, if calcium is not improving tomorrow may need to try to order this or obtained from other hospital -Continue lasix -08/09: Corrected calcium is 12.1 and still symptomatic, given it was still take multiple days before pamidronate starts to help significantly we will start with a one-time dose of calcitonin 4 mg/kg IM or subcu and can recheck labs -08/10: Corrected calcium 10.9 today, given significant improvement in mental status and bisphosphonate should begin working we will hold on second dose of calcitonin with low threshold to give. Want to also avoid hypocalcemia. Continue to monitor. Once stable may need to undergo malignancy work-up pending PTHrP result -08/11: Slowly improving, continue current management. Corrected calcium today 10.4, almost within the normal range, anticipate with bisphosphonate that it will continue to improve. PTH RP still pending, may need malignancy work-up once stable if no other etiology found for his hypercalcemia #Chronic Normocytic anemia/Fe deficiency anemia -Admission hemoglobin 8.8 -folic acid 3.80 (low normal), vitamin B12 288 (low normal), Fe 19 (low), TIBC 220 (low), Fe sat 8.6% (low), Ferritin 1601 (elevated) -Continue iron supplementation -Also replace B12 -08/09: Slowly downtrending, has history of coronary artery disease and CABG and therefore has a transfusion threshold of 8, 7.7 this AM. We will transfuse 1 unit of packed red blood cells -08/10: Hemoglobin stable today #Afib w/ rvr -Presented initially with A-fib with RVR and required Cardizem and amiodarone drips, had complicated course but was eventually transitioned to oral medication though overlap with short acting Cardizem resulted in soft BP and ultimately was transitioned to long-acting Cardizem with improvement in overlap with oral amnio x3 doses however went back into RVR early in the morning on 08/08 and was placed back on Cardizem drip, Likely had repeated RVR due to patient being lethargic and not getting his Cardizem and metoprolol orally in the AM on 08/07. He has since been transitioned back to oral and is off Cardizem drip -Echocardiogram 08/04 with EF 47%, mild global left ventricular systolic dysfunction, mild to moderate eccentric mitral valve insufficiency, pulmonary artery systolic pressure 30 -TSH mildly elevated and free T4 also slightly elevated however given acute presentation of critical illness would benefit from repeat thyroid function studies outpatient once #1 resolves and if persistent may need further work- up/evaluation -08/09: Had soft BP overnight which is likely multifactorial, if at all possible will be important he gets metoprolol to avoid going back in RVR. Continue to address underlying problem -08/10: Did not receive metoprolol yesterday, heart rate 130s, did receive a.m. medication. If heart rate improves and does not go back in RVR can likely transfer to floor later today -08/11: Patient to PCU yesterday. Has still had some episodes of tachycardia, is on Cardizem and metoprolol. Tachycardia may be in part compensatory in nature and not RVR but difficult to differentiate given periods where he does have significantly elevated heart rates. Can add/adjust medications further if heart rates not improving with current oral regimen. On heparin drip with Xarelto h eld for potential LP #Diffuse tremors -Has been evaluated by neurology twice -EEG with nonspecific changes -Ortho evaluated due to cervical narrowing -MRI brain unrevealing for cause -Replace B12, replace underlying electrolytes -Assess for cause of hypercalcemia as this is likely high cause or contributor -08/09: As above -08/10: Improving with improvement in calcium #apneic episodes on top of chronic hypoxic respiratory failure -On 2 L nasal cannula baseline -Had 2 be transferred to the ICU with BiPAP 08/07 due to worsening mental status and difficulty managing secretions and several apneic periods -ABG fairly unrevealing chest x-ray with improving central pulmonary edema with mild residual bibasilar atelectasis -Was noted to be up 7.6 L since presentation, on IV Lasix and spironolactone -Continue BiPAP prn and would benefit from qhs as well -ICU team following -08/09: Remains in ICU, tolerated BiPAP last night -08/10: Did not wear BiPAP last night, stressed importance of this and reason for him to wear it, he verbalized understanding -08/11: Continues to be resistant to BiPAP, continue to encourage as possible/tolerated #Cervical spondylosis -CT of the cervical and thoracic spine dated 08/01/2022 shows degenerative changes at multiple levels with loss of disc height, disc osteophyte complex formation and facet arthrosis -Evaluated by orthospine 08/07 and recommended further MRI imaging to rule out significant central stenosis or myelopathy however patient acutely decompensated 08/07 was transferred to the ICU and was unable to obtain MRI imaging at this time -08/09: Patient not clinically able to obtain MRI at this time, complete when stable enough to obtain MRI inpatient versus follow-up outpatient #Chronic systolic CHF -Continue IV lasix and spironolactone -Continue to optimize volume status and medical management -In order to avoid low BP will stop lisinopril while titrating other medications for heart failure -08/09: Presently being diuresed. Can always consider giving fluids with diuresis if he becomes euvolemic given need to continue to decrease calcium -08/11: Suspect he had been in mild exacerbation of chronic systolic CHF but no longer relates an exacerbation. Has been gaining weight however despite diuresis her respiratory status improved. Continue diuresis #History of rheumatoid arthritis -Presently on sulfasalazine and azathioprine #History of Graves' disease -Documented in history with unclear course or interventions -TSH mildly elevated and free T4 also slightly elevated however given acute presentation of critical illness would benefit from repeat thyroid function studies outpatient once #1 resolves and if persistent may need further work-up/evaluation -Appears to possibly been on methimazole in the past but his not filled this for multiple months #MRSA pneumonia -Sputum culture 08/04 positive for MRSA -On vancomycin -Infectious disease following #Hx CAD s/p CABG and PCI -Continue statin and metoprolol #Hx bowel perforation s/p partial colectomy #GERD w/ Hx GI bleed/gastric ulcers -Due to lethargy and mental status had PPI to IV in ICU, continue at this time #DVT ppx: hep gtt due to Xarelto being held Hailey Jaimes MD Time spent in the patient's overall evaluation,decision-making process, review of diagnostic data, adjustment of management, discussion with other providers, nursing nursing and ancillary staff involved in patient's care documentation, 37minutes Charges/Coding Visit Charges Inpatient E&M: 70539 Subs Hosp L3
[2022-08-11 07:46] LABS: Absolute Lymphocyte Count 0.75 X10^3/uL (0.83-4.51); Absolute Neutrophil Count 9.4 X10^3/uL (2.0-7.7); Basophil# 0.03 X10^3/uL; Basophil% 0.3 % (0-1); Eosinophil# 0.29 X10^3/uL; Eosinophils% 2.5 % (0-5); Hematocrit 25.8 % (40-54); Hemoglobin 8.4 g/dL (13.0-16.5); Lymphocyte # 0.75 X10^3/ul (0.83-4.51); Lymphocyte % 6.5 % (19-41); Mean Corp Hgb Conc 32.6 g/dL (32-36); Mean Corpuscular Hgb 27.6 pg (27.0-32.0); Mean Corpuscular Volume 84.9 fL (80-94); Mean Platelet Vol. 8.5 fl (6.2-12.0); Monocyte# 0.93 X10^3/uL; Monocyte% 8.1 % (0-10); NRBC Flagged by Analyzer 0 % (0-5); Neutrophil # 9.42 X10^3/uL (2.7-7.7); Neutrophil % 81.6 % (47-70); Platelet Count 414 K/mm3 (150-450); RBC Distribution Width CV 17.2 % (11.6-14.6); RBC Distribution Width SD 52.6 fl (35.1-43.9); Red Blood Count 3.04 M/mm3 (4.6-6.2); White Blood Count 11.5 K/mm3 (4.4-11.0)
[2022-08-11 08:02] LABS: Partial Thromboplast Time 49.5 Seconds (24.1-36.2)
[2022-08-11 08:06] LABS: ALB/GLOB Ratio 0.3 RATIO (0.9-2.4); AST(SGOT) 15 U/L (15-37); Alanine Aminotransfer ALT/SGPT 10 U/L (16-61); Albumin, Serum 1.6 g/dL (3.2-5.0); Alkaline Phosphatase 69 U/L (45-117); Anion Gap 4 (5-15); BUN 18 mg/dL (7-18); Calcium,Total 8.5 mg/dL (8.5-10.1); Chloride 104 mmol/L (98-107); Creatinine, Serum 0.86 mg/dL (0.70-1.30); EST Glomerular Filtration Rate 94 mL/min (>60); Est Glom Filt Rate - Afr Amer 114 mL/min (>60); Estimated Creatinine Clearance 95.58 ml/min; Globulin 5.9 g/dL (2.2-4.2); Glucose 136 mg/dL (74-106); Potassium 3.6 mmol/L (3.5-5.1); Protein, Total 7.5 g/dL (6.4-8.2); Sodium Level 135 mmol/L (136-145)
[2022-08-11 08:20] LABS: Vancomycin, Trough Level 11.2 ug/mL (5.0-15.0)
[2022-08-11] MEDS: Multivitamins,Ther W-Minerals Tablet 1 TABLET PO (08:30)
[2022-08-11] MEDS: guaiFENesin 1,200 MG Tablet 1200 MG PO ×2 (08:30→21:42)
[2022-08-11] MEDS: Spironolactone 25 MG Tablet PO (08:30)
[2022-08-11] MEDS: busPIRone 15 MG TABLET PO ×2 (08:30→21:42)
[2022-08-11] MEDS: azaTHIOprine 50 MG Tablet PO ×2 (08:30→21:42)
[2022-08-11] MEDS: Fenofibrate 48 MG Tablet PO (08:30)
[2022-08-11] MEDS: Ferrous Sulfate 325 MG Tablet PO ×2 (08:30→18:35)
[2022-08-11] MEDS: sulfaSALAzine 500 MG Tablet 1000 MG PO (08:30)
[2022-08-11] MEDS: Cyanocobalamin 500 MCG Tablet 1000 MCG PO (08:30)
[2022-08-11] MEDS: Acetaminophen 325 MG Tablet 650 MG PO ×2 (08:44→21:53)
[2022-08-11] MEDS: Heparin Injection (Vial) 5,000 UNIT/ML VIAL IV ×2 (08:51→14:40)
[2022-08-11] MEDS: Furosemide 40 MG/4 ML Vial IV ×2 (10:01→18:35)
[2022-08-11] MEDS: Nystatin Powder 15gm Bottle 1 APPLIC TOPICAL ×2 (10:02→21:42)
[2022-08-11] MEDS: Menthol/Lanolin/Calamine/Znox 113 GM Tube 1 APPLIC TOPICAL ×2 (10:02→21:43)
--- NOTE | 2022-08-11 10:30 | PCM.RX.CS ---
Consult Pharmacy has been consulted to manage selected antiobiotic: Vancomycin Type of Consult: Follow-up Prior Doses of Antibiotics Received/Current Regimen: current dose is vanc 1500mg IV q24h Labs: Sodium 135 mmol/L (136-145) L 08/11/22 07:30 Potassium 3.6 mmol/L (3.5-5.1) 08/11/22 07:30 Chloride 104 mmol/L (98-107) 08/11/22 07:30 Carbon Dioxide 27.0 mmol/L (21.0-32.0) 08/11/22 07:30 Anion Gap 4 (5-15) L 08/11/22 07:30 BUN 18 mg/dL (7-18) 08/11/22 07:30 Creatinine 0.86 mg/dL (0.70-1.30) 08/11/22 07:30 Est GFR (MDRD) Af Amer 114 mL/min (>60) 08/11/22 07:30 Est GFR (MDRD) Non-Af 94 mL/min (>60) 08/11/22 07:30 BUN/Creatinine Ratio 21.0 RATIO (10-20) H 08/11/22 07:30 Glucose 136 mg/dL (74-106) H 08/11/22 07:30 Vancomycin Trough 11.2 ug/mL (5.0-15.0) 08/11/22 07:30 Random Vancomycin 15.4 ug/mL (0.0-15.0) H 08/09/22 04:32 Microbiology: Microbiology 08/03/22 18:55 Blood Culture (Wb) - Left Forearm Blood Culture - Final No growth in 5 days. 08/03/22 19:05 Blood Culture (Wb) - Left Wrist Blood Culture - Final No growth in 5 days. 08/04/22 00:01 Sputum, Expectorated/Coughed Gram Stain - Final 08/04/22 00:01 Sputum, Expectorated/Coughed Respiratory Culture - Final Meth. resistant Staph. aureus 08/03/22 20:10 Urine, Clean Catch Urine Culture - Final Culture exhibits no growth. 08/03/22 20:10 Urine, Random Legionella Antigen - Final 08/03/22 20:10 Urine, Random Streptococcus pneumoniae Antigen (M - Final 08/03/22 19:00 Nasal Secretion SARS-CoV-2 & FLU Antigen (Rapid) - Final Weight used for dosin.8 kg Estimated Creatinine Clearance: 122ml/min Goal Trough: 15-20 mcg/mL Pharmacy Plan for Drug Dosing: The vanc trough level drawn at 07:30 today (approx 23.5 hrs after the previous dose) was 11.2. This is below goal so will change dose to 1750mg IV q24h starting this morning since it had not been given yet. Repeat a trough before the 3rd dose. The patient's CrCl of 122 ml/min was calculated using an adjusted body weight. Pharmacy Service will continue to monitor and adjust dosing as required. Follow-Up Labs: Trough Vancomycin Labs to be done on [date and time ordered]: 08/13/22 09:30
[2022-08-11 14:16] LABS: Partial Thromboplast Time 54.3 Seconds (24.1-36.2)
[2022-08-11] MEDS: HEPARIN/D5w 25,000 UNITS 25,000 UNITS/250 ML IV.SOLN. 13 UNITS CONT INF (16:11)
[2022-08-11 21:36] LABS: Partial Thromboplast Time 56.7 Seconds (24.1-36.2)
[2022-08-11] MEDS: Atorvastatin Calcium 40 MG Tablet PO (21:42)
[2022-08-11] MEDS: MELATONIN 10 MG TABLET 5 MG PO (21:42)
[2022-08-12 03:27] LABS: Absolute Lymphocyte Count 0.81 X10^3/uL (0.83-4.51); Basophil# 0.06 X10^3/uL; Basophil% 0.5 % (0-1); Eosinophil# 0.26 X10^3/uL; Eosinophils% 2.1 % (0-5); Hematocrit 28.3 % (40-54); Hemoglobin 8.8 g/dL (13.0-16.5); Lymphocyte # 0.81 X10^3/ul (0.83-4.51); Lymphocyte % 6.5 % (19-41); Mean Corp Hgb Conc 31.1 g/dL (32-36); Mean Corpuscular Hgb 27.1 pg (27.0-32.0); Mean Corpuscular Volume 87.1 fL (80-94); Monocyte% 8.9 % (0-10); NRBC Flagged by Analyzer 0 % (0-5); Neutrophil # 9.97 X10^3/uL (2.7-7.7); Neutrophil % 80.2 % (47-70); Platelet Count 424 K/mm3 (150-450); RBC Distribution Width CV 17.1 % (11.6-14.6); RBC Distribution Width SD 53.9 fl (35.1-43.9); Red Blood Count 3.25 M/mm3 (4.6-6.2); White Blood Count 12.4 K/mm3 (4.4-11.0)
[2022-08-12 03:30] LABS: Partial Thromboplast Time 47.5 Seconds (24.1-36.2)
[2022-08-12] MEDS: Heparin Injection (Vial) 5,000 UNIT/ML VIAL IV ×2 (03:45→10:40)
[2022-08-12 03:52] VITALS: BP 133/88; PULSE 96; RESP 16; TEMP 36.2; O2SAT 96
[2022-08-12 04:08] LABS: ALB/GLOB Ratio 0.3 RATIO (0.9-2.4); AST(SGOT) 15 U/L (15-37); Alanine Aminotransfer ALT/SGPT 10 U/L (16-61); Albumin, Serum 1.6 g/dL (3.2-5.0); Alkaline Phosphatase 73 U/L (45-117); Anion Gap 7 (5-15); BUN 16 mg/dL (7-18); BUN/Creat Ratio 18.7 RATIO (10-20); Calcium,Total 8.3 mg/dL (8.5-10.1); Chloride 103 mmol/L (98-107); Creatinine, Serum 0.86 mg/dL (0.70-1.30); EST Glomerular Filtration Rate 94 mL/min (>60); Est Glom Filt Rate - Afr Amer 114 mL/min (>60); Estimated Creatinine Clearance 95.58 ml/min; Globulin 5.9 g/dL (2.2-4.2); Glucose 118 mg/dL (74-106); Potassium 3.3 mmol/L (3.5-5.1); Protein, Total 7.5 g/dL (6.4-8.2); Sodium Level 138 mmol/L (136-145)
[2022-08-12 05:51] VITALS: BMI 39.2
[2022-08-12] MEDS: ACYCLOVIR IV ×3 (06:22→21:16)
[2022-08-12] MEDS: DEXTROSE 5% IV ×3 (06:22→21:16)
[2022-08-12] MEDS: 0.9% Saline Lock 10 ML Syringe IV ×2 (06:22→21:15)
[2022-08-12 07:14] VITALS: O2SAT 98
--- NOTE | 2022-08-12 07:43 | PN.HOSP_ITS ---
Reason for Visit Reason for Visit: Diagnoses Hypokalemia (08/03/22) Unspecified atrial fibrillation (08/03/22) Pneumonia, unspecified organism (08/03/22) Spondylosis without myelopathy or radiculopathy, cervical region (08/03/22) Spondylosis without myelopathy or radiculopathy, thoracic region (08/03/22) Spondylosis without myelopathy or radiculopathy, lumbar region (08/03/22) Subjective Subjective Feeling significantly better today, breathing better, mental status better Objective Data Objective Data Vital Signs: Vital Signs Temp Pulse Resp BP Pulse Ox O2 Del Method O2 Flow Rate 97.2 F L 96 16 133/88 H 96 Nasal Cannula 2 08/12/22 03:52 08/12/22 03:52 08/12/22 03:52 08/12/22 03:52 08/12/22 03:52 08/12/22 03:52 08/12/22 03:52 FiO2 30 08/10/22 23:11 Oxygen Flow Rate (L/min) 2 Oxygen Delivery Method Nasal Cannula Weight: 138.8 kg Body Mass Index (BMI) 39.2 Intake & Output: Intake and Output for Last 24 Hours 08/10/22 08/11/22 08/12/22 23:59 23:59 23:59 Intake Total 3470.17 / 3470.17 3495.08 / 3495.08 150.8 / 150.8 Output Total 3150 / 3150 3575 / 3575 400 / 400 Balance 320.17 / 320.17 -79.92 / -79.92 -249.2 / -249.2 Lab / Micro Data Result Diagrams: 08/12/22 02:55 08/12/22 02:55 Labs: Laboratory Results - last 24 hr 08/11/22 07:30: WBC 11.5 H, RBC 3.04 L, Hgb 8.4 L, Hct 25.8 L, MCV 84.9, MCH 27.6, MCHC 32.6, RDW Std Deviation 52.6 H, RDW Coeff of Trev 17.2 H, Plt Count 414, MPV 8.5, Immature Gran % (Auto) 1.000 H, Neut % (Auto) 81.6 H, Lymph % (Auto) 6.5 L, Robertson % (Auto) 8.1, Eos % (Auto) 2.5, Baso % (Auto) 0.3, Absolute Neuts (auto) 9.4 H, Absolute Lymphs (auto) 0.75 L, Nucleated RBC % 0 08/11/22 07:30: Sodium 135 L, Potassium 3.6, Chloride 104, Carbon Dioxide 27.0, Anion Gap 4 L, BUN 18, Creatinine 0.86, Estim Creat Clear Calc 95.58, Est GFR (M DRD) Af Amer 114, Est GFR (MDRD) Non-Af 94, BUN/Creatinine Ratio 21.0 H, Glucose 136 H, Calcium 8.5, Total Bilirubin 0.30, AST 15, ALT 10 L, Alkaline Phosphatase 69, Total Protein 7.5, Albumin 1.6 L, Globulin 5.9 H, Albumin/Globulin Ratio 0.3 L 08/11/22 07:30: Vancomycin Trough 11.2 08/11/22 07:30: APTT 49.5 H 08/11/22 14:00: APTT 54.3 H 08/11/22 20:50: APTT 56.7 H 08/12/22 02:55: WBC 12.4 H, RBC 3.25 L, Hgb 8.8 L, Hct 28.3 L, MCV 87.1, MCH 27.1, MCHC 31.1 L, RDW Std Deviation 53.9 H, RDW Coeff of Trev 17.1 H, Plt Count 424, MPV 9.0, Immature Gran % (Auto) 1.800 H, Neut % (Auto) 80.2 H, Lymph % (Auto) 6.5 L, Robertson % (Auto) 8.9, Eos % (Auto) 2.1, Baso % (Auto) 0.5, Absolute Neuts (auto) 10.0 H, Absolute Lymphs (auto) 0.81 L, Nucleated RBC % 0 08/12/22 02:55: Sodium 138, Potassium 3.3 L, Chloride 103, Carbon Dioxide 28.0, Anion Gap 7, BUN 16, Creatinine 0.86, Estim Creat Clear Calc 95.58, Est GFR (MDRD) Af Amer 114, Est GFR (MDRD) Non-Af 94, BUN/Creatinine Ratio 18.7, Glucose 118 H, Calcium 8.3 L, Total Bilirubin 0.30, AST 15, ALT 10 L, Alkaline Phosphatase 73, Total Protein 7.5, Albumin 1.6 L, Globulin 5.9 H, Album in/Globulin Ratio 0.3 L 08/12/22 02:55: APTT 47.5 H Micro: Microbiology 08/03/22 18:55 Blood Culture (Wb) - Left Forearm Blood Culture - Final No growth in 5 days. 08/03/22 19:05 Blood Culture (Wb) - Left Wrist Blood Culture - Final No growth in 5 days. 08/04/22 00:01 Sputum, Expectorated/Coughed Gram Stain - Final 08/04/22 00:01 Sputum, Expectorated/Coughed Respiratory Culture - Final Meth. resistant Staph. aureus 08/03/22 20:10 Urine, Clean Catch Urine Culture - Final Culture exhibits no growth. 08/03/22 20:10 Urine, Random Legionella Antigen - Final 08/03/22 20:10 Urine, Random Streptococcus pneumoniae Antigen (M - Final 08/03/22 19:00 Nasal Secretion SARS-CoV-2 & FLU Antigen (Rapid) - Final Physical Exam Narrative General: Awake and alert HEENT: Atraumatic, normocephalic Eyes: Anicteric, normal conjunctiva, extraocular movements grossly intact, Neck: Supple Respiratory: Air movement improving Cardiovascular: Regular rate GI: Soft, nontender, nondistended Extremities: Minimal extremity edema Musculoskeletal: Moving all extremities Neuro: No overt focal neurological deficits, tremors improving Skin: Chronic changes in bilateral lower extremities Psych: Cooperative Assessment & Plan Assessment/Plan (1) Pneumonia: QUALIFIERS: Pneumonia type: due to unspecified organism Laterality: left Lung location: lower lobe of lung Qualified Code(s): J18.9 - Pneumonia, unspecified organism PLAN: Plan #Acute encephalopathy?resolved -Likely mixed picture but presently concern for infectious etiology and/or hypercalcemia and there had been concern for toxic component of cefepime which has been discontinued -Has been seen by neurology twice, EEG obtained 08/05 demonstrated nonspecific slowing without any focal changes -MRI brain with chronic changes but no acute abnormalities -Ammonia within normal limits, liver function unremarkable -Had been on cefepime and vancomycin and cefepime was felt to potentially be contributing however this was discontinued and he has had continued encephalopathy -Neurology recontacted 08/07 and recommended repeat EEG as well as coverage for possible meningitis and recommended LP -Presently on vancomycin, Rocephin, acyclovir -repeat EEG 08/07 again demonstrated mild generalized background slowing -Xarelto DC'd 08/07 for LP and will need at least 48 to 72 hours prior to IR performing LP, currently being bridged with heparin -B12 had been borderline, will replace, will also give folic acid and thiamine especially given albumin of 1.7, likely has nutritional deficiencies, prealbumin 3.2 -ESR and CRP elevated, will trend to assess for improving versus worsening st atus -08/09: CRP downtrending, ESR did increase slightly but overall clinically significantly improved over the past 2 days on current management -08/10: Received calcitonin, status post bisphosphonate, remains on antibiotics. Significantly improving over past several days, continue current management. Stressed importance of BiPAP nightly to avoid CO2 retention and decompensation and patient verbalizes understanding. Patient wary of pursuing LP given symptoms and improvement query meningitis versus combination of hypercalcemia and hypercapnia. Will assess again tomorrow and discuss options with patient -08/11: Slowly improving with current measures. I discussed LP with patient several times. Unclear if underlying culprit was really meningitis, will discuss with ID as far as level of suspicion and necessity of LP given patient's difficulty with lying flat, body habitus, reluctance to pursue, direct improvement with improving calcium though confounded by time of antibiotics. If imperative will place order to have done with IR -08/12: Significantly improved today, appreciate further ID input #Hypercalcemia -Calcium 11 but corrected is 12.8, had been between 10.1-10.9 uncorrected since admission with no other noted recent elevations in calcium -PTH reported as <6.3 -We will check PTHrP, with elevation in calcium concerning to be symptomatic with undetectable PTH there is certainly concern for malignancy, check SPEP and UPEP, JANEEN -Vitamin D 25 levels 63.4 with a 1-25 of 11.8 -Thyroid study nondiagnostic due to body habitus and difficulty with exam, given undetectable PTH and low suspicion for hyperparathyroidism do not feel we need urgent parathyroid scan -If w/u unrevealing and suspicion for malignancy can consider chest CT as well -Patient has worsening hypercalcemia and based on symptomatology seems to have symptomatic hypercalcemia. Given his PTH is undetectable it does not seem to be due to hyperparathyroidism so do not feel Sensipar would be beneficial. He is now on Lasix, if becomes slightly volume depleted can continue fluids and Lasix to help with calcium excretion. Additionally will give bisphosphonate. Do not have subcu or IM calcitonin available, nasal calcitonin not helpful for acute symptomatic or severe hypercalcemia. Exploring options, if calcium is not improving tomorrow may need to try to order this or obtained from other hospital -Continue lasix -08/09: Corrected calcium is 12.1 and still symptomatic, given it was still take multiple days before pamidronate starts to help significantly we will start with a one-time dose of calcitonin 4 mg/kg IM or subcu and can recheck labs -08/10: Corrected calcium 10.9 today, given significant improvement in mental status and bisphosphonate should begin working we will hold on second dose of calcitonin with low threshold to give. Want to also avoid hypocalcemia. Continue to monitor. Once stable may need to undergo malignancy work-up pending PTHrP result -08/11: Slowly improving, continue current management. Corrected calcium today 10.4, almost within the normal range, anticipate with bisphosphonate that it will continue to improve. PTH RP still pending, may need malignancy work-up once stable if no other etiology found for his hypercalcemia -08/12: Calcium significantly improved status and neurological symptoms seem to mirror this improvement #Chronic Normocytic anemia/Fe deficiency anemia -Admission hemoglobin 8.8 -folic acid 3.80 (low normal), vitamin B12 288 (low normal), Fe 19 (low), TIBC 220 (low), Fe sat 8.6% (low), Ferritin 1601 (elevated) -Continue iron supplementation -Also replace B12 -08/09: Slowly downtrending, has history of coronary artery disease and CABG and therefore has a transfusion threshold of 8, 7.7 this AM. We will transfuse 1 unit of packed red blood cells -08/10: Hemoglobin stable today #Afib w/ rvr -Presented initially with A-fib with RVR and required Cardizem and amiodarone drips, had complicated course but was eventually transitioned to oral medication though overlap with short acting Cardizem resulted in soft BP and ultimately was transitioned to long-acting Cardizem with improvement in overlap with oral amnio x3 doses however went back into RVR early in the morning on 08/08 and was placed back on Cardizem drip, Likely had repeated RVR due to patient being lethargic and not getting his Cardizem and metoprolol orally in the AM on 08/07. He has since been transitioned back to oral and is off Cardizem drip -Echocardiogram 08/04 with EF 47%, mild global left ventricular systolic dysfunction, mild to moderate eccentric mitral valve insufficiency, pulmonary artery systolic pressure 30 -TSH mildly elevated and free T4 also slightly elevated however given acute presentation of critical illness would benefit from repeat thyroid function studies outpatient once #1 resolves and if persistent may need further work- up/evaluation -08/09: Had soft BP overnight which is likely multifactorial, if at all possible will be important he gets metoprolol to avoid going back in RVR. Continue to address underlying problem -08/10: Did not receive metoprolol yesterday, heart rate 130s, did receive a.m. medication. If heart rate improves and does not go back in RVR can likely transfer to floor later today -08/11: Patient to PCU yesterday. Has still had some episodes of tachycardia, is on Cardizem and metoprolol. Tachycardia may be in part compensatory in nature and not RVR but difficult to differentiate given periods where he does have significantly elevated heart rates. Can add/adjust medications further if heart rates not improving with current oral regimen. On heparin drip with Xarelto held for potential LP -08/12: Heart rate much better controlled, continue current medications #Diffuse tremors -Has been evaluated by neurology twice -EEG with nonspecific changes -Ortho evaluated due to cervical narrowing -MRI brain unrevealing for cause -Replace B12, replace underlying electrolytes -Assess for cause of hypercalcemia as this is likely high cause or contributor -08/09: As above -08/10: Improving with improvement in calcium #apneic episodes on top of chronic hypoxic respiratory failure -On 2 L nasal cannula baseline -Had 2 be transferred to the ICU with BiPAP 08/07 due to worsening mental status and difficulty managing secretions and several apneic periods -ABG fairly unrevealing chest x-ray with improving central pulmonary edema with mild residual bibasilar atelectasis -Was noted to be up 7.6 L since presentation, on IV Lasix and spironolactone -Continue BiPAP prn and would benefit from qhs as well -ICU team following -08/09: Remains in ICU, tolerated BiPAP last night -08/10: Did not wear BiPAP last night, stressed importance of this and reason for him to wear it, he verbalized understanding -08/11: Continues to be resistant to BiPAP, continue to encourage as possible/tolerated #Cervical spondylosis -CT of the cervical and thoracic spine dated 08/01/2022 shows degenerative changes at multiple levels with loss of disc height, disc osteophyte complex formation and facet arthrosis -Evaluated by orthospine 08/07 and recommended further MRI imaging to rule out significant central stenosis or myelopathy however patient acutely decompensated 08/07 was transferred to the ICU and was unable to obtain MRI imaging at this time -08/09: Patient not clinically able to obtain MRI at this time, complete when stable enough to obtain MRI inpatient versus follow-up outpatient #Chronic systolic CHF -Continue IV lasix and spironolactone -Continue to optimize volume status and medical management -In order to avoid low BP will stop lisinopril while titrating other medications for heart failure -08/09: Presently being diuresed. Can always consider giving fluids with diuresis if he becomes euvolemic given need to continue to decrease calcium -08/11: Suspect he had been in mild exacerbation of chronic systolic CHF but no longer relates an exacerbation. Has been gaining weight however despite diuresis her respiratory status improved. Continue diuresis -08/12: Has tolerated diuresis well, will attempt to switch to oral Lasix as patient improves and gets closer to discharge #History of rheumatoid arthritis -Presently on sulfasalazine and azathioprine #History of Graves' disease -Documented in history with unclear course or interventions -TSH mildly elevated and free T4 also slightly elevated however given acute presentation of critical illness would benefit from repeat thyroid function studies outpatient once #1 resolves and if persistent may need further work- up/evaluation -Appears to possibly been on methimazole in the past but his not filled this for multiple months #MRSA pneumonia -Sputum culture 08/04 positive for MRSA -On vancomycin -Infectious disease following #Hx CAD s/p CABG and PCI -Continue statin and metoprolol #Hx bowel perforation s/p partial colectomy #GERD w/ Hx GI bleed/gastric ulcers -Due to lethargy and mental status had PPI to IV in ICU, continue at this time #DVT ppx: hep gtt due to Xarelto being held Hailey Jaimes, MD Time spent in the patient's overall evaluation,decision-making process, review of diagnostic data, adjustment of management, discussion with other providers, nursing nursing and ancillary staff involved in patient's care documentation, 37minutes Charges/Coding Visit Charges Inpatient E&M: 66642 Subs Hosp L3
[2022-08-12 08:17] VITALS: BP 122/84; PULSE 60; RESP 18; TEMP 36.7; O2SAT 96
[2022-08-12] MEDS: Cyanocobalamin 500 MCG Tablet 1000 MCG PO (08:24)
[2022-08-12] MEDS: sulfaSALAzine 500 MG Tablet 1000 MG PO (08:24)
[2022-08-12] MEDS: Multivitamins,Ther W-Minerals Tablet 1 TABLET PO (08:24)
[2022-08-12] MEDS: Spironolactone 25 MG Tablet PO (08:24)
[2022-08-12] MEDS: Ferrous Sulfate 325 MG Tablet PO ×2 (08:24→15:15)
[2022-08-12] MEDS: HEPARIN/D5w 25,000 UNITS 25,000 UNITS/250 ML IV.SOLN. 14 UNITS CONT INF (09:38)
[2022-08-12] MEDS: Potassium Chloride 10mEq/100mL 10 MEQ/100 ML IV.SOLN. 100 MEQ IV BOLUS (09:38)
[2022-08-12 10:12] LABS: Partial Thromboplast Time 54.4 Seconds (24.1-36.2)
[2022-08-12 10:36] VITALS: PULSE 63
[2022-08-12] MEDS: Metoprolol(XL)Succ 200 MG Tablet PO (10:36)
[2022-08-12] MEDS: Fenofibrate 48 MG Tablet PO (10:36)
[2022-08-12] MEDS: Nystatin Powder 15gm Bottle 1 APPLIC TOPICAL ×2 (10:37→21:20)
[2022-08-12] MEDS: guaiFENesin 1,200 MG Tablet 1200 MG PO ×2 (10:37→21:12)
[2022-08-12] MEDS: azaTHIOprine 50 MG Tablet PO ×2 (10:37→21:12)
[2022-08-12] MEDS: Furosemide 40 MG/4 ML Vial IV (10:37)
[2022-08-12] MEDS: Menthol/Lanolin/Calamine/Znox 113 GM Tube 1 APPLIC TOPICAL ×2 (10:38→21:20)
[2022-08-12] MEDS: busPIRone 15 MG TABLET PO ×2 (10:38→21:12)
[2022-08-12] MEDS: dilTIAZem CD 120 MG Capsule PO ×2 (10:38→21:12)
--- NOTE | 2022-08-12 12:46 | PCM.PN.ID ---
Physical Exam Narrative Feeling better, no fever, cough much improved Const Orientation / Consciousness: lethargic Resp normal air movement and clear to auscultation bilaterally Cardio regular rate and regular rhythm GI soft to palpation, non-tender and non-distended Skin no rashes or lesions noted ID ID: Route of nutrition/ use of supplements: [] Nutritional Intake: [] IV Site: [] Smith Catheter: [] Assessment & Plan Assessment/Plan (1) Pneumonia: QUALIFIERS: Pneumonia type: due to unspecified organism Laterality: left Lung location: lower lobe of lung Qualified Code(s): J18.9 - Pneumonia, unspecified organism PLAN: MRSA pneumonia - cont with vanc tremors, encephalopathy - Neuro following. Will cover for meningitis at this point, 08/07/22 added ceftriaxone and iv acyclovir. Ok to avoid LP at this point. Mental status much improved, may have been related to hypercalcemia, but plan will be for him to cont abx for a few more days to complete empiric course, can change to po at time of discharge. Will follow, d/w nursing
[2022-08-12 15:07] LABS: PROELU- Albumin, Urine 42.4 % (.); PROELU- Alpha-2-Globulin,Ur 10.5 % (.); PROELU- Beta Globulin, Ur 17.8 % (.); PROELU- Gamma Globulin, Ur 28.4 % (.)
[2022-08-12] MEDS: Potassium Chloride Oral Tablet 20 MEQ PO (15:14)
[2022-08-12 15:18] VITALS: BP 120/76; PULSE 90; RESP 16; TEMP 36.7; O2SAT 99
[2022-08-12 17:15] LABS: Partial Thromboplast Time 56.8 Seconds (24.1-36.2)
[2022-08-12] MEDS: Furosemide 40 MG Tablet PO (18:00)
[2022-08-12] MEDS: MELATONIN 10 MG TABLET 5 MG PO (21:11)
[2022-08-12] MEDS: Atorvastatin Calcium 40 MG Tablet PO (21:12)
[2022-08-12] MEDS: Acetaminophen 325 MG Tablet 650 MG PO (21:12)
[2022-08-12 21:30] VITALS: BP 116/64; PULSE 91; RESP 18; TEMP 36.6; O2SAT 98
[2022-08-13 00:51] LABS: Partial Thromboplast Time 56.5 Seconds (24.1-36.2)
[2022-08-13 03:50] VITALS: BP 118/70; PULSE 89; RESP 20; TEMP 36.6; O2SAT 98
[2022-08-13 03:52] VITALS: BMI 39.4
[2022-08-13] MEDS: HEPARIN/D5w 25,000 UNITS 25,000 UNITS/250 ML IV.SOLN. 15 UNITS CONT INF (03:52)
[2022-08-13] MEDS: ACYCLOVIR IV ×2 (05:02→15:11)
[2022-08-13] MEDS: DEXTROSE 5% IV ×2 (05:02→15:11)
[2022-08-13 07:20] VITALS: O2SAT 97
[2022-08-13 07:20] LABS: Absolute Lymphocyte Count 0.88 X10^3/uL (0.83-4.51); Absolute Neutrophil Count 9.5 X10^3/uL (2.0-7.7); Basophil# 0.04 X10^3/uL; Basophil% 0.3 % (0-1); Eosinophil# 0.22 X10^3/uL; Eosinophils% 1.9 % (0-5); Hematocrit 27.4 % (40-54); Hemoglobin 8.5 g/dL (13.0-16.5); Lymphocyte # 0.88 X10^3/ul (0.83-4.51); Lymphocyte % 7.5 % (19-41); Mean Corpuscular Hgb 26.8 pg (27.0-32.0); Mean Corpuscular Volume 86.4 fL (80-94); Mean Platelet Vol. 8.7 fl (6.2-12.0); Monocyte# 1.01 X10^3/uL; Monocyte% 8.6 % (0-10); NRBC Flagged by Analyzer 0 % (0-5); Neutrophil # 9.45 X10^3/uL (2.7-7.7); Neutrophil % 80.5 % (47-70); Platelet Count 392 K/mm3 (150-450); RBC Distribution Width CV 17.2 % (11.6-14.6); RBC Distribution Width SD 52.9 fl (35.1-43.9); Red Blood Count 3.17 M/mm3 (4.6-6.2); White Blood Count 11.7 K/mm3 (4.4-11.0)
[2022-08-13 07:28] LABS: Partial Thromboplast Time 59.9 Seconds (24.1-36.2)
[2022-08-13 07:44] LABS: ALB/GLOB Ratio 0.3 RATIO (0.9-2.4); AST(SGOT) 22 U/L (15-37); Alanine Aminotransfer ALT/SGPT 9 U/L (16-61); Albumin, Serum 1.5 g/dL (3.2-5.0); Alkaline Phosphatase 65 U/L (45-117); Anion Gap 3 (5-15); BUN 15 mg/dL (7-18); BUN/Creat Ratio 19.7 RATIO (10-20); Calcium,Total 7.6 mg/dL (8.5-10.1); Chloride 103 mmol/L (98-107); Creatinine, Serum 0.76 mg/dL (0.70-1.30); EST Glomerular Filtration Rate 108 mL/min (>60); Est Glom Filt Rate - Afr Amer 131 mL/min (>60); Globulin 5.7 g/dL (2.2-4.2); Glucose 144 mg/dL (74-106); Potassium 3.6 mmol/L (3.5-5.1); Protein, Total 7.2 g/dL (6.4-8.2); Sodium Level 134 mmol/L (136-145)
[2022-08-13 10:00] VITALS: BP 114/83; PULSE 113; RESP 16; TEMP 36.6; O2SAT 97
--- NOTE | 2022-08-13 10:05 | PCM.PN.ID ---
Physical Exam Narrative Feeling well, no fever, some dark sputum. Const alert and no apparent distress General Appearance: cooperative Resp normal air movement and clear to auscultation bilaterally Cardio regular rate and regular rhythm GI soft to palpation, non-tender and non-distended Skin no rashes or lesions noted ID ID: Route of nutrition/ use of supplements: [] Nutritional Intake: [] IV Site: [] Smith Catheter: [] Assessment & Plan Assessment/Plan (1) Pneumonia: QUALIFIERS: Pneumonia type: due to unspecified organism Laterality: left Lung location: lower lobe of lung Qualified Code(s): J18.9 - Pneumonia, unspecified organism PLAN: MRSA pneumonia - completing course of vanc tremors, encephalopathy - Neuro following. Will cover for meningitis at this point, 08/07/22 added ceftriaxone and iv acyclovir. Ok to avoid LP at this point. Mental status much improved, may have been related to hypercalcemia, but plan will be for him to cont abx for a few more days to complete empiric course with 3 more days valtex 1gm tid. Will follow as needed, wrote rx
[2022-08-13 10:59] LABS: Vancomycin, Trough Level 11.4 ug/mL (5.0-15.0)
[2022-08-13] MEDS: sulfaSALAzine 500 MG Tablet 1000 MG PO (11:19)
[2022-08-13] MEDS: Fenofibrate 48 MG Tablet PO (11:19)
[2022-08-13] MEDS: Multivitamins,Ther W-Minerals Tablet 1 TABLET PO (11:20)
[2022-08-13] MEDS: Pantoprazole Sodium 40 MG Tablet PO (11:20)
[2022-08-13] MEDS: azaTHIOprine 50 MG Tablet PO (11:20)
[2022-08-13] MEDS: Spironolactone 25 MG Tablet PO (11:20)
[2022-08-13] MEDS: guaiFENesin 1,200 MG Tablet 1200 MG PO (11:20)
[2022-08-13] MEDS: Furosemide 40 MG Tablet PO ×2 (11:20→19:21)
[2022-08-13] MEDS: Cyanocobalamin 500 MCG Tablet 1000 MCG PO (11:20)
[2022-08-13 11:21] VITALS: BP 114/83; PULSE 113
[2022-08-13] MEDS: busPIRone 15 MG TABLET PO (11:21)
[2022-08-13] MEDS: Ferrous Sulfate 325 MG Tablet PO ×2 (11:21→19:21)
[2022-08-13] MEDS: Metoprolol(XL)Succ 200 MG Tablet PO (11:21)
[2022-08-13] MEDS: Acetaminophen 325 MG Tablet 650 MG PO (11:22)
[2022-08-13] MEDS: dilTIAZem CD 120 MG Capsule PO (11:22)
--- NOTE | 2022-08-13 11:40 | PCM.RX.CS ---
Consult Type of Consult: Follow-up Suspected Infection: Pneumonia Labs: Sodium 134 mmol/L (136-145) L 08/13/22 07:04 Potassium 3.6 mmol/L (3.5-5.1) 08/13/22 07:04 Chloride 103 mmol/L (98-107) 08/13/22 07:04 Carbon Dioxide 28.0 mmol/L (21.0-32.0) 08/13/22 07:04 Anion Gap 3 (5-15) L 08/13/22 07:04 BUN 15 mg/dL (7-18) 08/13/22 07:04 Creatinine 0.76 mg/dL (0.70-1.30) 08/13/22 07:04 Est GFR (MDRD) Af Amer 131 mL/min (>60) 08/13/22 07:04 Est GFR (MDRD) Non-Af 108 mL/min (>60) 08/13/22 07:04 BUN/Creatinine Ratio 19.7 RATIO (10-20) 08/13/22 07:04 Glucose 144 mg/dL (74-106) H 08/13/22 07:04 Vancomycin Trough 11.4 ug/mL (5.0-15.0) 08/13/22 09:41 Random Vancomycin 15.4 ug/mL (0.0-15.0) H 08/09/22 04:32 Microbiology: Microbiology 08/03/22 18:55 Blood Culture (Wb) - Left Forearm Blood Culture - Final No growth in 5 days. 08/03/22 19:05 Blood Culture (Wb) - Left Wrist Blood Culture - Final No growth in 5 days. 08/04/22 00:01 Sputum, Expectorated/Coughed Gram Stain - Final 08/04/22 00:01 Sputum, Expectorated/Coughed Respiratory Culture - Final Meth. resistant Staph. aureus 08/03/22 20:10 Urine, Clean Catch Urine Culture - Final Culture exhibits no growth. 08/03/22 20:10 Urine, Random Legionella Antigen - Final 08/03/22 20:10 Urine, Random Streptococcus pneumoniae Antigen (M - Final 08/03/22 19:00 Nasal Secretion SARS-CoV-2 & FLU Antigen (Rapid) - Final Weight used for dosin kg Goal Trough: 15-20 mcg/mL Pharmacy Plan for Drug Dosing: VANCOMYCIN LEVEL RECEIVED Current Vancomycin Dose: 1750mg Q24H Number of Doses Received: 1750mg x2, 1500mg x2 Vancomycin Level: 11.4 Hours Since Last Dose: 23 Renal Function: sCr 0.76 (CrCl > 100 ml/min using AdjBW 105kg) Renal Function Trend: improved Lab/Micro: MRSA pnuemonia Vancomycin Plan/Comments: Adjust Vancomycin dosing regimen to 1250mg Q12H Pending Level: Vancomycin trough @ 2330 08/14/22 Pharmacy Service will continue to monitor and adjust dosing as required. Labs to be done on [date and time ordered]: Vancomycin trough @ 2330 08/14/22
[2022-08-13 15:16] VITALS: BP 117/69; PULSE 104; RESP 16; TEMP 36.8; O2SAT 99
--- NOTE | 2022-08-13 16:42 | CASEMGMT ---
Patient medically ready for discharge to SNF today, [facility]. Discharge orders and medication list sent to [facility] at discharge. At time of this note, discharge orders not in yet. Sw completed green sheet and informed patient that he will be discharged today to [facility]. Sw contacted patient's son per pt request and informed him of discharge plan. Transport will be arranged via [facility] when all discharge orders are ready. Katrin Gerard, NETWORK PROGRAMMER, [employer]
--- NOTE | 2022-08-13 17:06 | TREXTCAR_ITS ---
Diet Diet Order/Speech Therapy: 08/03/22 22:37 Diet: Cardiac - Heart Healthy Food consistency:: Regular Liquid Consistency:: Regular/Thin Is pt able to select menu?: Yes Routine Orders/Code Status Suppository Type: Dulcolax 10mg Suppository Frequency: Daily PRN Routine Lab Work: - (CMP in 2 to 4 days for calcium and albumin for corrected calcium and kidney function) Code Status: Full Code Wound(s) coccyx: Wound Type: Skin Tear Therapies Physical Therapy: Eval and Treat Occupational Therapy: Eval and Treat Problem/Diagnosis (1) Pneumonia: Status: Acute Code(s): J18.9 - Pneumonia, unspecified organism Plan #Acute metabolic encephalopathy likely due to hypercalcemia but cannot rule out meningitis and treated empirically as such?resolved #Hypercalcemia of unclear etiology #Chronic Normocytic anemia #Afib w/ rvr #Diffuse tremors #apneic episodes on top of chronic hypoxic respiratory failure, likely underlying ALEJANDRA #Cervical spondylosis #Chronic systolic CHF #History of rheumatoid arthritis #History of Graves' disease #MRSA pneumonia?resolved #Hx CAD s/p CABG and PCI #Hx bowel perforation s/p partial colectomy #GERD w/ Hx GI bleed/gastric ulcers 66-year-old male history of coronary artery disease status post CABG, fill Graves' disease, rheumatoid arthritis, chronic systolic heart failure, A-fib, GERD presented to [facility] 08/03/2022 with fever for about a day and diffuse tremors for 7 to 8 weeks that worsened the day of presentation as well as fatigue and anorexia. He also had been having visual hallucinations for 2 to 3 weeks. He had a chest x-ray in the ED with possible infiltrate and given recent hospitalization IV antibiotics he was treated Hospital-acquired pneumonia with broad-spectrum antibiotics and sputum culture grew MRSA. Additionally on presentation had A-fib with RVR and required Cardizem and amiodarone drips and oral metoprolol was ultimately transitioned to all oral medications. During his hospitalization he had progressively deteriorating mental status with a diffuse tremors and was seen by neurology twice. EEG obtained 08/05 demonstrated nonspecific slowing without any focal changes. MRI brain with chronic changes but no acute abnormalities. His ammonia was within normal limits and repeat EEG demonstrated mild generalized background slowing. Due to continued difficulty neurology recommended empiric meningitis coverage and possible LP and he was started on vancomycin, Rocephin, acyclovir and infectious disease consulted. Xarelto was held and transitioned to heparin drip for possible PE but this was unable to be performed as he needed 48 to 72 hours which led into weekend with no IR coverage and he had significantly improved by the following week and therefore was treated empirically however upon comprehensive review patient was hypercalcemic and had a corrected calcium of 12.8 and had a PTH less than 6.3 with vitamin D levels within normal limits. He was given pamidronate and a dose of calcitonin and his mental status significantly improved as did his tremor. It is difficult to assess what was attributed to calcium versus what may have been meningitis will have higher suspicion that hypercalcemia was the cause of his multiple complaints with entire clinical picture confounded by MRSA pneumonia he presented with. He did require transfer to ICU at one point due to apneic episodes overnight and was placed on BiPAP. He had an echo 08/04 with EF 47%, mild global left ventricular systolic dysfunction, mild to moderate eccentric mitral valve insufficiency, pulmonary artery systolic pressure 30. Use BiPAP as needed but did not tolerate this very well due to claustrophobia however continued to improve and was transferred to the floor. I did discharge patient feeling much better. Additionally during his hospitalization he did have what was presumed to be an exacerbation of his chronic systolic congestive heart failure and was put on IV diuresis when he was in the ICU and this resolved and was transition back to oral. Also when he was having the tremors and mental status changes he had a CT of the cervical and thoracic spine dated 08/01/2022 shows degenerative changes at multiple levels with loss of disc height, disc osteophyte complex formation and facet arthrosis and orthospine evaluated and recommended MRI however patient was too unstable for a period of time and ultimately they were agreeable to outpatient follow-up indicated. Discharge instructions as follows: DISCHARGE INSTRUCTIONS PLEASE READ *Please take this with you to your next doctors appointment* -Please follow-up with Dr. Laureano of spine surgery on discharge as you will likely need MRIs to be obtained of your spine for further assessment and possible management -Recommend CMP to assess calcium and albumin so corrected calcium can be calculated. Will likely need further outpatient work-up now that calcium and clinical status stable -You are treated empirically for meningitis as we are unable to get a lumbar puncture in a timely manner given your blood thinners and interventional radiology availability. You will continue Valtrex 1 g every 8 hours for 3 more days. -Your diltiazem was increased and due to difficulty controlling her heart rate was split into twice daily dosing -Your Wellbutrin 150 mg 3 times daily for depression was discontinued due to your fast heart rate, Wellbutrin now that heart rate is controlled can likely be resumed but would recommend that this is started as 150 mg XR dose in the morning and titrated up to avoid sleep disturbance but will defer decision to your prescribing physician -Your torsemide has been increased to 40 mg as you had been retaining fluid, will be important to monitor volume status closely and check kidney function in 3 to 4 days as this may need to be decreased again -Weigh yourself every day. A sudden weight gain can mean you are retaining fluid. Weigh yourself at the same time of day and in the same kind of clothes. Ideally, weigh yourself first thing in the morning after you empty your bladder, but before you eat breakfast. -Please call your physician if your weight goes up by more than 2 pounds in 1 day or 5 pounds in 1 week. This can be a sign that you are retaining more fluid than you should be. -Suspect that he may have underlying sleep apnea, would recommend sleep study on an outpatient basis -Please call your primary care provider's office upon discharge to schedule a hospital follow up within 1 week. -For any concerning signs or symptoms please call 911 or proceed to the nearest emergency department Allergies/Procedures Done in Hospital Allergies Penicillins [PCN] Allergy (Verified 05/14/22 12:51) Swelling Procedures: 2-D Echocardiogram Type of Care/Length of Stay Estimated LOS: More Than 30 Days Type of Care Needed: Intermediate Rehab Potential: Fair Prognosis: Fair Additional Orders/Day of Discharge Day of Discharge: 08/13/22 Dietary and Speech Recommendations Dietitian Recommendations/Changes: continue cardiac diet as tolerated; will monitor PO intake and consider liberalizing diet and/or adding ONS w/ medpass if PO intake declines Discharge Plan Admission Admit Date/Time: 08/03/22 21:45 Primary Reason for Your Visit: Shortness of breath Attending Provider: Hailey Jaimes Primary Care Provider: Jj Rogers Consulting Providers: Asa Wheat ; Hailey Jaimes ; Pat Boswell ; Brian Leija ; Brown,RianDamien Escamilla Instructions Patient Instructions: Hypercalcemia Dc, Meningitis Additional Instructions / Restrictions: DISCHARGE INSTRUCTIONS PLEASE READ *Please take this with you to your next doctors appointment* -Please follow-up with Dr. Laureano of spine surgery on discharge as you will likely need MRIs to be obtained of your spine for further assessment and possible management -Recommend CMP to assess calcium and albumin so corrected calcium can be calculated. Will likely need further outpatient work-up now that calcium and clinical status stable -You are treated empirically for meningitis as we are unable to get a lumbar puncture in a timely manner given your blood thinners and interventional radiology availability. You will continue Valtrex 1 g every 8 hours for 3 more days. -Your diltiazem was increased and due to difficulty controlling her heart rate was split into twice daily dosing -Your Wellbutrin 150 mg 3 times daily for depression was discontinued due to your fast heart rate, Wellbutrin now that heart rate is controlled can likely be resumed but would recommend that this is started as 150 mg XR dose in the morning and titrated up to avoid sleep disturbance but will defer decision to your prescribing physician -Your torsemide has been increased to 40 mg as you had been retaining fluid, will be important to monitor volume status closely and check kidney function in 3 to 4 days as this may need to be decreased again -Weigh yourself every day. A sudden weight gain can mean you are retaining fluid. Weigh yourself at the same time of day and in the same kind of clothes. Ideally, weigh yourself first thing in the morning after you empty your bladder, but before you eat breakfast. -Please call your physician if your weight goes up by more than 2 pounds in 1 day or 5 pounds in 1 week. This can be a sign that you are retaining more fluid than you should be. -Suspect that he may have underlying sleep apnea, would recommend sleep study on an outpatient basis -Please call your primary care provider's office upon discharge to schedule a hospital follow up within 1 week. -For any concerning signs or symptoms please call 911 or proceed to the nearest emergency department Discharge Orders/Prescriptions Prescriptions: New valacyclovir [Valtrex] 1 gram tablet 1,000 mg PO Q8H 3 Days Qty: 9 0RF atorvastatin 40 mg Tablet 40 mg PO QHS 30 Days Qty: 30 0RF diltiazem HCl 120 mg Capsule,Extended Release 24hr 120 mg PO Q12 30 Days Qty: 0 0RF Continued metoprolol succinate 200 MG tablet extended release 24 hr 200 mg PO DAILY buspirone 15 MG tablet 15 mg PO BID nitroglycerin 0.4 MG tablet, sublingual 0.4 mg sublingual Q5M PRN (Reason: CHEST PAIN ) multivitamin with minerals 1 EACH tablet 1 ea PO DAILY Xarelto 20 mg Tablet 20 mg PO QPM sulfasalazine 500 mg Tablet 1,000 mg PO DAILY azathioprine 50 mg Tablet 50 mg PO BID lisinopril 5 mg Tablet 5 mg PO DAILY Hold Instructions: Resume on 04/28/22. pregabalin [Lyrica] 50 mg Capsule 50 mg PO BID fenofibrate 54 mg Tablet 54 mg PO DAILY simethicone 125 mg Tablet,Chewable 125 mg PO BID cholecalciferol (vitamin D3) 50 mcg (2,000 unit) Tablet 2,000 mcg PO DAILY spironolactone 25 MG tablet 25 mg PO DAILYCM Hold Instructions: Resume on 04/28/22. citalopram 20 mg Tablet 20 mg PO DAILY omeprazole 20 mg Capsule,Delayed Release(Dr/Ec) 20 mg PO DAILY bisacodyl 10 mg Suppository 10 mg IN DAILY PRN (Reason: CONSTIPATION ) ferrous sulfate 325 MG tablet 325 mg PO BIDCM melatonin 5 mg Tablet 5 mg PO QHS Changed torsemide 20 mg Tablet 40 mg PO DAILY 30 Days Qty: 0 0RF Discontinued atorvastatin 80 MG tablet 80 mg PO QHS bupropion HCl 100 MG tablet 150 mg PO TID tramadol 50 mg tablet 50 mg PO Q8H PRN (Reason: PAIN ) diltiazem HCl [Cardizem CD] 120 mg capsule,extended release 24hr 120 mg PO QHS Referrals / Follow Up: Jj Rogers MD [Primary Care Provider] - Within 1 Week Damien Laureano DO [Med Staff - Active Staff] - See Referral Note (Please follow- up with Dr. Laureano of spine surgery on discharge as you will likely need MRIs to be obtained of your spine for further assessment and possible management) Disposition Disposition (needs filled in before D/C Order can be placed): [facility] Facility (1) Pneumonia Qualifiers: Pneumonia type: due to unspecified organism Laterality: left Lung location: lower lobe of lung Qualified Code(s): J18.9 - Pneumonia, unspecified organism
--- NOTE | 2022-08-13 17:26 | PCM.DC.SUM ---
Providers Date of Admission: 08/03/22 Date of Discharge: 08/13/22 Primary Care Physician: Dr. Jj Rogers MD Consultations 08/06/22 09:20 Consult: Infectious Disease Routine Consulting Provider: Brian Leija Reason for Consult: MRSA PNA, more delirious, weaned abx to vanc only EMERGENT Consult: No MD Notified: Yes Date Notified: 08/06/22 Time Notified: 10:05 Method of Notification: Text 08/06/22 15:00 Consult: Orthopedics Routine Consulting Provider: Damien Laureano Reason for Consult: Concern cord compression EMERGENT Consult: No MD Notified: Yes Date Notified: 08/06/22 Time Notified: 15:01 Method of Notification: called 08/07/22 09:48 Consult: [employer] Assistant Department Head / Pulmonary Medicine Routine Consulting Provider: Rian Hernández Reason for Consult: Dyspnea, overload EMERGENT Consult: No MD Notified: Yes Date Notified: 08/07/22 Time Notified: 07:53 Method of Notification: Text Reason For Visit: AFIB WITH RVR, PNEUMONIA Diagnosis Discharge Diagnosis (1) Pneumonia: Status: Acute Code(s): J18.9 - Pneumonia, unspecified organism Qualifiers: Pneumonia type: due to unspecified organism Laterality: left Lung location: lower lobe of lung Qualified Code(s): J18.9 - Pneumonia, unspecified organism Plan #Acute metabolic encephalopathy likely due to hypercalcemia but cannot rule out meningitis and treated empirically as such?resolved #Hypercalcemia of unclear etiology #Chronic Normocytic anemia #Afib w/ rvr #Diffuse tremors #apneic episodes on top of chronic hypoxic respiratory failure, likely underlying ALEJANDRA #Cervical spondylosis #Chronic systolic CHF #History of rheumatoid arthritis #History of Graves' disease #MRSA pneumonia?resolved #Hx CAD s/p CABG and PCI #Hx bowel perforation s/p partial colectomy #GERD w/ Hx GI bleed/gastric ulcers Medications at Discharge Home Medications buspirone 15 mg tablet 15 mg PO BID ANXIETY 07/05/19 metoprolol succinate 200 mg tablet,extended release 24 hr 200 mg PO DAILY BLOOD PRESSURE 07/05/19 multivitamin with minerals 1 ea PO DAILY HEALTH MAINTENANCE 07/05/19 nitroglycerin 0.4 mg sublingual tablet 0.4 mg sublingual Q5M PRN CHEST PAIN 07/05/19 azathioprine 50 mg tablet 50 mg PO BID RHEUMATOID ARTHRITIS 11/29/21 fenofibrate 54 mg tablet 54 mg PO DAILY CHOLESTEROL 11/29/21 lisinopril 5 mg tablet 5 mg PO DAILY BLOOD PRESSURE 11/29/21 pregabalin 50 mg capsule (Lyrica) 50 mg PO BID PAIN 11/29/21 rivaroxaban 20 mg tablet (Xarelto) 20 mg PO QPM BLOOD THINNER 11/29/21 sulfasalazine 500 mg tablet 1,000 mg PO DAILY RHEUMATOID ARTHRITIS 11/29/21 cholecalciferol (vitamin D3) 50 mcg (2,000 unit) tablet 2,000 mcg PO DAILY SUPPLEMENT 04/22/22 simethicone 125 mg chewable tablet 125 mg PO BID GAS RELIEF 04/22/22 spironolactone 25 mg tablet 25 mg PO DAILYCM CONGESTIVE HEART FAILURE 04/22/22 bisacodyl 10 mg rectal suppository 10 mg NV DAILY PRN CONSTIPATION 05/14/22 citalopram 20 mg tablet 20 mg PO DAILY DEPRESSION 05/14/22 ferrous sulfate 325 mg (65 mg iron) tablet 325 mg PO BIDCM SUPPLEMENT 05/14/22 omeprazole 20 mg capsule,delayed release 20 mg PO DAILY ACID REFLUX 05/14/22 melatonin 5 mg tablet 5 mg PO QHS 08/03/22 atorvastatin 40 mg tablet 40 mg PO QHS 30 days #30 tabs 08/13/22 diltiazem HCl 120 mg capsule,extended release 24 hr 120 mg PO Q12 30 days #0 caps 08/13/22 torsemide 20 mg tablet 40 mg PO DAILY CONGESTIVE HEART FAILURE 30 days #0 tabs 08/13/22 valacyclovir 1 gram tablet (Valtrex) 1,000 mg PO Q8H 3 days #9 tabs 08/13/22 Hospital Course Procedures Transthoracic echo Summary of Care Provided Minutes Spent on Discharge: 45 Hospital Course: 66-year-old male history of coronary artery disease status post CABG, fill Graves' disease, rheumatoid arthritis, chronic systolic heart failure, A-fib, GERD presented to [facility] 08/03/2022 with fever for about a day and diffuse tremors for 7 to 8 weeks that worsened the day of presentation as well as fatigue and anorexia. He also had been having visual hallucinations for 2 to 3 weeks. He had a chest x-ray in the ED with possible infiltrate and given recent hospitalization IV antibiotics he was treated Hospital-acquired pneumonia with broad-spectrum antibiotics and sputum culture grew MRSA. Additionally on presentation had A-fib with RVR and required Cardizem and amiodarone drips and oral metoprolol was ultimately transitioned to all oral medications. During his hospitalization he had progressively deteriorating mental status with a diffuse tremors and was seen by neurology twice. EEG obtained 08/05 demonstrated nonspecific slowing without any focal changes. MRI brain with chronic changes but no acute abnormalities. His ammonia was within normal limits and repeat EEG demonstrated mild generalized background slowing. Due to continued difficulty neurology recommended empiric meningitis coverage and possible LP and he was started on vancomycin, Rocephin, acyclovir and infectious disease consulted. Xarelto was held and transitioned to heparin drip for possible PE but this was unable to be performed as he needed 48 to 72 hours which led into weekend with no IR coverage and he had significantly improved by the following week and therefore was treated empirically however upon comprehensive review patient was hypercalcemic and had a corrected calcium of 12.8 and had a PTH less than 6.3 with vitamin D levels within normal limits. He was given pamidronate and a dose of calcitonin and his mental status significantly improved as did his tremor. It is difficult to assess what was attributed to calcium versus what may have been meningitis will have higher suspicion that hypercalcemia was the cause of his multiple complaints with entire clinical picture confounded by MRSA pneumonia he presented with. He did require transfer to ICU at one point due to apneic episodes overnight and was placed on BiPAP. He had an echo 08/04 with EF 47%, mild global left ventricular systolic dysfunction, mild to moderate eccentric mitral valve insufficiency, pulmonary artery systolic pressure 30. Use BiPAP as needed but did not tolerate this very well due to claustrophobia however continued to improve and was transferred to the floor. I did discharge patient feeling much better. Additionally during his hospitalization he did have what was presumed to be an exacerbation of his chronic systolic congestive heart failure and was put on IV diuresis when he was in the ICU and this resolved and was transition back to oral. Also when he was having the tremors and mental status changes he had a CT of the cervical and thoracic spine dated 08/01/2022 shows degenerative changes at multiple levels with loss of disc height, disc osteophyte complex formation and facet arthrosis and orthospine evaluated and recommended MRI however patient was too unstable for a period of time and ultimately they were agreeable to outpatient follow-up indicated. Discharge instructions as follows: DISCHARGE INSTRUCTIONS PLEASE READ *Please take this with you to your next doctors appointment* -Please follow-up with Dr. Laureano of spine surgery on discharge as you will likely need MRIs to be obtained of your spine for further assessment and possible management -Recommend CMP to assess calcium and albumin so corrected calcium can be calculated. Will likely need further outpatient work-up now that calcium and clinical status stable -You are treated empirically for meningitis as we are unable to get a lumbar puncture in a timely manner given your blood thinners and interventional radiology availability. You will continue Valtrex 1 g every 8 hours for 3 more days. -Your diltiazem was increased and due to difficulty controlling her heart rate was split into twice daily dosing -Your Wellbutrin 150 mg 3 times daily for depression was discontinued due to your fast heart rate, Wellbutrin now that heart rate is controlled can likely be resumed but would recommend that this is started as 150 mg XR dose in the morning and titrated up to avoid sleep disturbance but will defer decision to your prescribing physician -Your torsemide has been increased to 40 mg as you had been retaining fluid, will be important to monitor volume status closely and check kidney function in 3 to 4 days as this may need to be decreased again -Weigh yourself every day. A sudden weight gain can mean you are retaining fluid. Weigh yourself at the same time of day and in the same kind of clothes. Ideally, weigh yourself first thing in the morning after you empty your bladder, but before you eat breakfast. -Please call your physician if your weight goes up by more than 2 pounds in 1 day or 5 pounds in 1 week. This can be a sign that you are retaining more fluid than you should be. -Suspect that he may have underlying sleep apnea, would recommend sleep study on an outpatient basis -Please call your primary care provider's office upon discharge to schedule a hospital follow up within 1 week. -For any concerning signs or symptoms please call 911 or proceed to the nearest emergency department Physical Exam Narrative General: Awake and alert HEENT: Atraumatic, normocephalic Eyes: Anicteric, normal conjunctiva, extraocular movements grossly intact, Neck: Supple Respiratory: Air movement improving Cardiovascular: Regular rate GI: Soft, nontender, nondistended Extremities: Minimal extremity edema Musculoskeletal: Moving all extremities Neuro: No overt focal neurological deficits, tremors improving Skin: Chronic changes in bilateral lower extremities Psych: Cooperative Weight / BMI Weight Weight: 139.2 kg Body Mass Index (BMI) 39.4 ABG / Lab / Microbiology Data Result Diagrams: 08/13/22 07:04 08/13/22 07:04 Laboratory: Laboratory Results - last 24 hr 08/08/22 08:36: U PEP M-Jame 08/13/22 00:25: APTT 56.5 H 08/13/22 07:04: WBC 11.7 H, RBC 3.17 L, Hgb 8.5 L, Hct 27.4 L, MCV 86.4, MCH 26.8 L, MCHC 31.0 L, RDW Std Deviation 52.9 H, RDW Coeff of Trev 17.2 H, Plt Count 392, MPV 8.7, Immature Gran % (Auto) 1.200 H, Neut % (Auto) 80.5 H, Lymph % (Auto) 7.5 L, [place] % (Auto) 8.6, Eos % (Auto) 1.9, Baso % (Auto) 0.3, Absolute Neuts (auto) 9.5 H, Absolute Lymphs (auto) 0.88, Nucleated RBC % 0 08/13/22 07:04: Sodium 134 L, Potassium 3.6, Chloride 103, Carbon Dioxide 28.0, Anion Gap 3 L, BUN 15, Creatinine 0.76, Estim Creat Clear Calc 82.20, Est GFR (MDRD) Af Amer 131, Est GFR (MDRD) Non-Af 108, BUN/Creatinine Ratio 19.7, Glucose 144 H, Calcium 7.6 L, Total Bilirubin 0.30, AST 22, ALT 9 L, Alkaline Phosphatase 65, Total Protein 7.2, Albumin 1.5 L, Globulin 5.7 H, Albumin/Globulin Ratio 0.3 L 08/13/22 07:04: APTT 59.9 H 08/13/22 09:41: Vancomycin Trough 11.4 Microbiology: Microbiology 08/13/22 13:00 Nasal Secretion SARS-CoV-2 Antigen (Rapid) - Final 08/03/22 18:55 Blood Culture (Wb) - Left Forearm Blood Culture - Final No growth in 5 days. 08/03/22 19:05 Blood Culture (Wb) - Left Wrist Blood Culture - Final No growth in 5 days. 08/04/22 00:01 Sputum, Expectorated/Coughed Gram Stain - Final 08/04/22 00:01 Sputum, Expectorated/Coughed Respiratory Culture - Final Meth. resistant Staph. aureus 08/03/22 20:10 Urine, Clean Catch Urine Culture - Final Culture exhibits no growth. 08/03/22 20:10 Urine, Random Legionella Antigen - Final 08/03/22 20:10 Urine, Random Streptococcus pneumoniae Antigen (M - Final 08/03/22 19:00 Nasal Secretion SARS-CoV-2 & FLU Antigen (Rapid) - Final D/C Instructions Discharge Diet: - (Cardiac-heart healthy) Meaningful Use Info Meaningful Use Diagnoses (Choose all that apply): None applicable Discharge Plan Admission Admit Date/Time: 08/03/22 21:45 Primary Reason for Your Visit: Shortness of breath Attending Provider: Hailey Jaimes Primary Care Provider: Jj Rogers Consulting Providers: Asa Wheat ; Hailey Jaimes ; Pat Boswell ; Brian Leija ; Rian Hernández ; Damien Laureano Instructions Patient Instructions: Hypercalcemia Dc, Meningitis Additional Instructions / Restrictions: DISCHARGE INSTRUCTIONS PLEASE READ *Please take this with you to your next doctors appointment* -Please follow-up with Dr. Laureano of spine surgery on discharge as you will likely need MRIs to be obtained of your spine for further assessment and possible management -Recommend CMP to assess calcium and albumin so corrected calcium can be calculated. Will likely need further outpatient work-up now that calcium and clinical status stable -You are treated empirically for meningitis as we are unable to get a lumbar puncture in a timely manner given your blood thinners and interventional radiology availability. You will continue Valtrex 1 g every 8 hours for 3 more days. -Your diltiazem was increased and due to difficulty controlling her heart rate was split into twice daily dosing -Your Wellbutrin 150 mg 3 times daily for depression was discontinued due to your fast heart rate, Wellbutrin now that heart rate is controlled can likely be resumed but would recommend that this is started as 150 mg XR dose in the morning and titrated up to avoid sleep disturbance but will defer decision to your prescribing physician -Your torsemide has been increased to 40 mg as you had been retaining fluid, will be important to monitor volume status closely and check kidney function in 3 to 4 days as this may need to be decreased again -Weigh yourself every day. A sudden weight gain can mean you are retaining fluid. Weigh yourself at the same time of day and in the same kind of clothes. Ideally, weigh yourself first thing in the morning after you empty your bladder, but before you eat breakfast. -Please call your physician if your weight goes up by more than 2 pounds in 1 day or 5 pounds in 1 week. This can be a sign that you are retaining more fluid than you should be. -Suspect that he may have underlying sleep apnea, would recommend sleep study on an outpatient basis -Please call your primary care provider's office upon discharge to schedule a hospital follow up within 1 week. -For any concerning signs or symptoms please call 911 or proceed to the nearest emergency department Discharge Orders/Prescriptions Prescriptions: New valacyclovir [Valtrex] 1 gram tablet 1,000 mg PO Q8H 3 Days Qty: 9 0RF atorvastatin 40 mg Tablet 40 mg PO QHS 30 Days Qty: 30 0RF diltiazem HCl 120 mg Capsule,Extended Release 24hr 120 mg PO Q12 30 Days Qty: 0 0RF Continued metoprolol succinate 200 MG tablet extended release 24 hr 200 mg PO DAILY buspirone 15 MG tablet 15 mg PO BID nitroglycerin 0.4 MG tablet, sublingual 0.4 mg sublingual Q5M PRN (Reason: CHEST PAIN ) multivitamin with minerals 1 EACH tablet 1 ea PO DAILY Xarelto 20 mg Tablet 20 mg PO QPM sulfasalazine 500 mg Tablet 1,000 mg PO DAILY azathioprine 50 mg Tablet 50 mg PO BID lisinopril 5 mg Tablet 5 mg PO DAILY Hold Instructions: Resume on 04/28/22. pregabalin [Lyrica] 50 mg Capsule 50 mg PO BID fenofibrate 54 mg Tablet 54 mg PO DAILY simethicone 125 mg Tablet,Chewable 125 mg PO BID cholecalciferol (vitamin D3) 50 mcg (2,000 unit) Tablet 2,000 mcg PO DAILY spironolactone 25 MG tablet 25 mg PO DAILYCM Hold Instructions: Resume on 04/28/22. citalopram 20 mg Tablet 20 mg PO DAILY omeprazole 20 mg Capsule,Delayed Release(Dr/Ec) 20 mg PO DAILY bisacodyl 10 mg Suppository 10 mg NV DAILY PRN (Reason: CONSTIPATION ) ferrous sulfate 325 MG tablet 325 mg PO BIDCM melatonin 5 mg Tablet 5 mg PO QHS Changed torsemide 20 mg Tablet 40 mg PO DAILY 30 Days Qty: 0 0RF Discontinued atorvastatin 80 MG tablet 80 mg PO QHS bupropion HCl 100 MG tablet 150 mg PO TID tramadol 50 mg tablet 50 mg PO Q8H PRN (Reason: PAIN ) diltiazem HCl [Cardizem CD] 120 mg capsule,extended release 24hr 120 mg PO QHS Referrals / Follow Up: Jj Rogers MD [Primary Care Provider] - Within 1 Week Damien Laureano DO [Med Staff - Active Staff] - See Referral Note (Please follow-up with Dr. Laureano of spine surgery on discharge as you will likely need MRIs to be obtained of your spine for further assessment and possible management) Disposition Disposition (needs filled in before D/C Order can be placed): [facility] Charges/Coding Visit Charges Inpatient E&M: 82681 Disch Hosp >30min
[2022-08-13] MEDS: Rivaroxaban 20 MG Tablet PO (19:21)
--- NOTE | 2022-08-13 20:24 | NURSING ---
Report called to [facility]
--- NOTE | 2022-08-13 20:55 | NURSING ---
report given to transport, pt left the unit at 2049.
== END 2022-08-13 20:50 | disposition skilled nursing facility (03) | DRG 177 ==
LOC: ED 21:18 → PCU 22:15 → ICU 08-07 12:58 → PCU 08-10 13:41
PROVIDERS: Family Medicine; Internal Medicine Critical Care Medicine; Internal Medicine Infectious Disease; Physician Assistant; Admitting Provider Hospitalist; Emergency Provider Emergency Medicine; PCP Family Medicine; Referring Provider Emergency Medicine; Visit Provider Internal Medicine
DX: J15.212 Pneumonia due to Methicillin resistant Staphylococcus aureus (principal); I50.23 Acute on chronic systolic (congestive) heart failure; G92.8 Other toxic encephalopathy; G03.9 Meningitis, unspecified; G93.41 Metabolic encephalopathy; I13.0 Hypertensive heart and chronic kidney disease with heart failure and stage 1 through stage 4 chronic kidney disease, or unspecified chronic kidney disease; J96.11 Chronic respiratory failure with hypoxia; I48.0 Paroxysmal atrial fibrillation; M06.9 Rheumatoid arthritis, unspecified; E83.52 Hypercalcemia; I25.5 Ischemic cardiomyopathy; N18.2 Chronic kidney disease, stage 2 (mild); E87.6 Hypokalemia; I25.10 Atherosclerotic heart disease of native coronary artery without angina pectoris; K21.9 Gastro-esophageal reflux disease without esophagitis; G47.33 Obstructive sleep apnea (adult) (pediatric); E78.00 Pure hypercholesterolemia, unspecified; D50.9 Iron deficiency anemia, unspecified; E05.00 Thyrotoxicosis with diffuse goiter without thyrotoxic crisis or storm; R25.1 Tremor, unspecified; M47.812 Spondylosis without myelopathy or radiculopathy, cervical region; M48.02 Spinal stenosis, cervical region; I34.0 Nonrheumatic mitral (valve) insufficiency; F41.9 Anxiety disorder, unspecified; M47.814 Spondylosis without myelopathy or radiculopathy, thoracic region; M47.816 Spondylosis without myelopathy or radiculopathy, lumbar region; R00.1 Bradycardia, unspecified; T36.1X5A Adverse effect of cephalosporins and other beta-lactam antibiotics, initial encounter; F32.A Depression, unspecified; Z20.822 Contact with and (suspected) exposure to COVID-19; Y95 Nosocomial condition; Z79.01 Long term (current) use of anticoagulants; Z79.899 Other long term (current) drug therapy; Z79.891 Long term (current) use of opiate analgesic; Z87.891 Personal history of nicotine dependence; Z95.1 Presence of aortocoronary bypass graft; Z99.81 Dependence on supplemental oxygen
CPT/HCPCS: 36415; 36600; 70450; 70551; 71045; 72125; 72128; 76536; 80048; 80053; 80202; 81001; 82140; 82164; 82306; 82330; 82550; 82607; 82652; 82728; 82746; 82784; 82803; 82962; 83540; 83550; 83605; 83735; 83880; 83970; 84100; 84134; 84165; 84166; 84439; 84443; 84481; 85025; 85610; 85652; 85730; 86140; 86334; 86850; 86900; 86901; 86920; 86922; 87040; 87070; 87077; 87086; 87186; 87205; 87428; 87449; 87641; 87811; 93306; 94002; 94003; 94668; 94762; 95819; 97110; 97166; 97535; 99252; 99285; J7030; J7040; J7050; P9016; P9612; Q9957; A4216; C8929; G0463; J0696; J1940; J2430; J3490

== ENCOUNTER 2022-08-20 18:48 | Observation (INO) | payer MEDICARE, MEDICAID, SELFPAY ==
[2022-08-20] VITALS (7 sets, daily range): BP systolic 111–139; BP diastolic 71–86; PULSE 91–102; RESP 20–28; TEMP 36.3–36.6; O2SAT 93–100; BMI 41.0; BMI 40.6
--- NOTE | 2022-08-20 19:03 | EKG12_ITS ---
Test Reason : FEVER Blood Pressure : / mmHG Vent. Rate : 087 BPM Atrial Rate : 000 BPM P-R Int : 000 ms QRS Dur : 100 ms QT Int : 384 ms P-R-T Axes : 000 057 023 degrees QTc Int : 462 ms Atrial fibrillation Incomplete right bundle branch block Abnormal ECG Confirmed by SUSI CHRISTIAN, FABIAN ([id number]), advertising editor BETSY CRYSTAL ([id number]) on 08/23/2022 10:05:23 A M Referred By: Confirmed By:TJ GOLDMAN MD
--- NOTE | 2022-08-20 19:04 | EX.ED.DYSGE1 ---
HPI History of Present Illness Chief Complaint: Fever Narrative Narrative: Patient presents with fever, he had an episode of hypotension at the F, he has cough and he is short of breath. He has a history of pneumonia. He is denying urinary symptoms. No rash. No back pain. No headache. He is denying any current chest pain. No abdominal pain. [facility] Medical History Anxiety Atrial fibrillation Back pain [facility] Cardiology follow-up encounter CHF (congestive heart failure) Coronary artery disease involving coronary bypass graft Depression Dietary restriction Difficulty chewing Former smoker Graves disease High cholesterol History of atrial fibrillation History of echocardiogram History of edema History of heart attack History of kidney stones History of pain when walking History of renal disease History of stomach ulcers History of stress test Hypertension Ischemic cardiomyopathy Neuropathy Nocturia Rheumatoid arthritis Shortness of breath on exertion Walker as ambulation aid Home Medications buspirone 15 mg tablet 15 mg PO BID ANXIETY 07/05/19 [History Last Taken 05/14/22] metoprolol succinate 200 mg tablet,extended release 24 hr 200 mg PO DAILY BLOOD PRESSURE 07/05/19 [History Last Taken 05/14/22] multivitamin with minerals 1 ea PO DAILY HEALTH MAINTENANCE 07/05/19 [History Last Taken 05/14/22] nitroglycerin 0.4 mg sublingual tablet 0.4 mg sublingual Q5M PRN CHEST PAIN 07/05/19 [History Last Taken Unknown] azathioprine 50 mg tablet 50 mg PO BID RHEUMATOID ARTHRITIS 11/29/21 [History Last Taken 05/14/22] fenofibrate 54 mg tablet 54 mg PO DAILY CHOLESTEROL 11/29/21 [History Last Taken 05/14/22] lisinopril 5 mg tablet 5 mg PO DAILY BLOOD PRESSURE 11/29/21 [History Last Taken 05/14/22] pregabalin 50 mg capsule (Lyrica) 50 mg PO BID PAIN 11/29/21 [History Last Taken 05/14/22] rivaroxaban 20 mg tablet (Xarelto) 20 mg PO QPM BLOOD THINNER 11/29/21 [History Last Taken 05/13/22] sulfasalazine 500 mg tablet 1,000 mg PO DAILY RHEUMATOID ARTHRITIS 11/29/21 [History Last Taken 05/13/22 12:00] cholecalciferol (vitamin D3) 50 mcg (2,000 unit) tablet 2,000 mcg PO DAILY SUPPLEMENT 04/22/22 [History Last Taken 05/14/22] simethicone 125 mg chewable tablet 125 mg PO BID GAS RELIEF 04/22/22 [History Last Taken 05/14/22] spironolactone 25 mg tablet 25 mg PO DAILYCM CONGESTIVE HEART FAILURE 04/22/22 [History Last Taken 05/13/22 12:00] bisacodyl 10 mg rectal suppository 10 mg AR DAILY PRN CONSTIPATION 05/14/22 [History Last Taken Unknown] citalopram 20 mg tablet 20 mg PO DAILY DEPRESSION 05/14/22 [History Last Taken 05/14/22] ferrous sulfate 325 mg (65 mg iron) tablet 325 mg PO BIDCM SUPPLEMENT 05/14/22 [History Last Taken 05/14/22 08:00] omeprazole 20 mg capsule,delayed release 20 mg PO DAILY ACID REFLUX 05/14/22 [History Last Taken 05/14/22] melatonin 5 mg tablet 5 mg PO QHS 08/03/22 [History Last Taken Unknown] atorvastatin 40 mg tablet 40 mg PO QHS 30 days #30 tabs 08/13/22 [Rx Last Taken Unknown] diltiazem HCl 120 mg capsule,extended release 24 hr 120 mg PO Q12 30 days #0 caps 08/13/22 [Rx Last Taken Unknown] torsemide 20 mg tablet 40 mg PO DAILY CONGESTIVE HEART FAILURE 30 days #0 tabs 08/13/22 [Rx Last Taken 05/14/22] valacyclovir 1 gram tablet (Valtrex) 1,000 mg PO Q8H 3 days #9 tabs 08/13/22 [Rx Last Taken Unknown] Allergy/AdvReac Type Severity Reaction Status Date / Time Penicillins [PCN] Allergy Swelling Verified 05/14/22 12:51 Family History Mother Cancer Father Heart disease Thyroid disorder Hypertension Sister Kidney disease Cancer Diabetes Brother Diabetes Surgical History H/O hernia repair History of cardiac catheterization History of esophagogastroduodenoscopy (EGD) History of incision and drainage Hx of colectomy Hx of colonoscopy Hx of heart bypass surgery S/P cervical spinal fusion S/P right knee arthroscopy Social History Smoking Status: Former smoker ROS ROS ED ROS Narrative Past medical history: Reviewed, it is quite extensive, includes obesity, debility, history of bowel obstruction, ALEJANDRA, ischemic colitis, CAD, hypothyroidism, CHF, hypertension, hyperlipidemia Medications: Reviewed in the F paperwork Social history: Noncontributory Review of systems: All systems negative except as indicated General: Fever as in HPI. Generalized weakness which is chronic Eyes: No visual changes ENT: No upper airway congestion, normal voice Neck: No neck pain Cardiovascular: No chest pain Respiratory: Dyspnea and cough Gastrointestinal: No abdominal pain, nausea vomiting or diarrhea Genitourinary: No dysuria Musculoskeletal: Denies myalgias Skin: No rash Neurological: No memory loss, confusion or any focal weakness EXAM Physical Exam Narrative Exam Narrative: Physical exam General: Morbidly obese male who appears chronically ill. He does not appear in any distress currently Head: Normocephalic, Atraumatic Eyes: Conjunctiva not pale ENT: Somewhat dry mucous membranes Neck: Supple, Nontender, No lymphadenopathy Cardiovascular: Irregular rhythm without murmur. Respiratory: Coarse bilateral breath sounds Abdomen: Soft, Nontender, Nondistended Back: Nontender, Normal Inspection. Negative for: CVA tenderness Extremities: Nontender, No edema Skin: Normal color, No rash Const Vital Signs: 08/20/22 18:49 08/20/22 18:52 08/20/22 18:59 Temperature 97.3 F L Temperature Source Temporal Pulse Rate 100 Respiratory Rate 20 H Respiratory Effort Short of Breath Labored Short of Breath Labored Respiratory Pattern Normal Blood Pressure 139/86 H Blood Pressure Mean 103 Pulse Ox 99 Oxygen Delivery Method Nasal Cannula Nasal Cannula Oxygen Flow Rate (L/min) 3 3 08/20/22 19:40 08/20/22 20:07 Temperature Temperature Source Pulse Rate 91 Respiratory Rate 28 H Respiratory Effort Respiratory Pattern Blood Pressure 111/71 Blood Pressure Mean 84 Pulse Ox 93 100 Oxygen Delivery Method Nasal Cannula Nasal Cannula Oxygen Flow Rate (L/min) 3 3 MDM MDM MDM Narrative Medical decision making narrative: Patient had a documented temperature of 101 and documented low blood pressure at the COUNTS INCLUDE 234 BEDS AT THE [facility]. He tells me he feels much worse and is having problems breathing when I reevaluated I walked into the room he was shaking almost like rigors, he says it is making his joints hurt from the shaking. He has documented pneumonia on outpatient x-ray and he was recently admitted to the hospital with pneumonia, I am wondering if his pneumonia is starting again, at this time there is no evidence of sepsis and the patient appears relatively well however because of his significant comorbidities I will give him IV antibiotics and admit him. I will discuss with hospitalist for admission Independent interpretation: Chest x-ray: 1 view chest x-ray does not show any obvious pneumonia EKG: A-fib with a rate of 87. Nonspecific ST changes normal QTc. Otherwise unremarkable EKG Interpreted by emergency doctor Telemetry: A-fib on the monitor without ectopy rate in the 80s and 90s.. Lab Data Labs: Laboratory Results - last 24 hr 08/20/22 08/20/22 08/20/22 19:05 19:05 19:05 WBC 8.8 RBC 2.92 L Hgb 7.9 L Hct 25.0 L MCV 85.6 MCH 27.1 MCHC 31.6 L RDW Std Deviation 53.8 H RDW Coeff of Trev 17.3 H Plt Count 356 MPV 8.9 Immature Gran % (Auto) 0.500 Neut % (Auto) 80.3 H Lymph % (Auto) 8.5 L Holt % (Auto) 7.7 Eos % (Auto) 2.3 Baso % (Auto) 0.7 Absolute Neuts (auto) 7.1 Absolute Lymphs (auto) 0.75 L Nucleated RBC % 0 PT 29.6 H INR 2.8 APTT 68.7 H Sodium 134 L Potassium 3.9 Chloride 98 Carbon Dioxide 31.0 Anion Gap 5 BUN 31 H Creatinine 1.06 Estim Creat Clear Calc 73.21 Est GFR (MDRD) Af Amer 89 Est GFR (MDRD) Non-Af 74 BUN/Creatinine Ratio 29.2 H Glucose 105 Lactic Acid Calcium 8.3 L Total Bilirubin 0.30 AST 35 ALT 23 Alkaline Phosphatase 95 Total Protein 7.6 Albumin 1.5 L Globulin 6.1 H Albumin/Globulin Ratio 0.2 L Procalcitonin Urine Color Urine Clarity Urine pH Ur Specific [place] Urine Protein Urine Glucose (UA) Urine Ketones Urine Occult Blood Urine Nitrite Urine Bilirubin Urine Urobilinogen Ur Leukocyte Esterase Urine RBC Urine WBC Ur Squamous Epith Cells Urine Bacteria Urine Mucus 08/20/22 08/20/22 08/20/22 19:05 19:05 20:25 WBC RBC Hgb Hct MCV MCH MCHC RDW Std Deviation RDW Coeff of Trev Plt Count MPV Immature Gran % (Auto) Neut % (Auto) Lymph % (Auto) Holt % (Auto) Eos % (Auto) Baso % (Auto) Absolute Neuts (auto) Absolute Lymphs (auto) Nucleated RBC % PT INR APTT Sodium Potassium Chloride Carbon Dioxide Anion Gap BUN Creatinine Estim Creat Clear Calc Est GFR (MDRD) Af Amer Est GFR (MDRD) Non-Af BUN/Creatinine Ratio Glucose Lactic Acid 1.2 Calcium Total Bilirubin AST ALT Alkaline Phosphatase Total Protein Albumin Globulin Albumin/Globulin Ratio Procalcitonin < 0.04 Urine Color Yellow Urine Clarity Clear Urine pH 5.0 Ur Specific [place] 1.010 Urine Protein 15 H Urine Glucose (UA) Normal Urine Ketones Negative Urine Occult Blood 150 H Urine Nitrite Negative Urine Bilirubin Negative Urine Urobilinogen 1 H Ur Leukocyte Esterase 25 H Urine RBC 0-5 SEEN Urine WBC 0 SEEN Ur Squamous Epith Cells 0 SEEN Urine Bacteria RARE Urine Mucus 0 SEEN Radiography Diagnostic Testing: Clinical Impression(s) from Imaging Studies Chest X-Ray 08/20/22 19:55 IMPRESSION: 1. Cardiomegaly and evidence of cardiac surgery. 2. Question small left pleural effusion. There is no acute pulmonary disease. Electronically Signed: Leno Booker DO at 20:08 EDT Reading Location ID and State: [address] [place] [address] Tel [phone], Service support , Discharge Plan Triage Chief Complaint: Fever ED Provider: Eric Mallory Dx/Rx/DC Orders Clinical Impression: Fever, Acute dyspnea, Anemia Prescriptions: No Action metoprolol succinate 200 MG tablet extended release 24 hr 200 mg PO DAILY buspirone 15 MG tablet 15 mg PO BID nitroglycerin 0.4 MG tablet, sublingual 0.4 mg sublingual Q5M PRN (Reason: CHEST PAIN ) multivitamin with minerals 1 EACH tablet 1 ea PO DAILY Xarelto 20 mg Tablet 20 mg PO QPM sulfasalazine 500 mg Tablet 1,000 mg PO DAILY azathioprine 50 mg Tablet 50 mg PO BID lisinopril 5 mg Tablet 5 mg PO DAILY Hold Instructions: Resume on 04/28/22. pregabalin [Lyrica] 50 mg Capsule 50 mg PO BID fenofibrate 54 mg Tablet 54 mg PO DAILY simethicone 125 mg Tablet,Chewable 125 mg PO BID cholecalciferol (vitamin D3) 50 mcg (2,000 unit) Tablet 2,000 mcg PO DAILY spironolactone 25 MG tablet 25 mg PO DAILYCM Hold Instructions: Resume on 04/28/22. citalopram 20 mg Tablet 20 mg PO DAILY omeprazole 20 mg Capsule,Delayed Release(Dr/Ec) 20 mg PO DAILY bisacodyl 10 mg Suppository 10 mg AR DAILY PRN (Reason: CONSTIPATION ) ferrous sulfate 325 MG tablet 325 mg PO BIDCM melatonin 5 mg Tablet 5 mg PO QHS valacyclovir [Valtrex] 1 gram tablet 1,000 mg PO Q8H 3 Days Qty: 9 0RF atorvastatin 40 mg Tablet 40 mg PO QHS 30 Days Qty: 30 0RF diltiazem HCl 120 mg Capsule,Extended Release 24hr 120 mg PO Q12 30 Days Qty: 0 0RF torsemide 20 mg Tablet 40 mg PO DAILY 30 Days Qty: 0 0RF Primary Care Provider: Eric Kang Referrals: Jj Rogers MD [Non-Staff] - Disposition Disposition: Acute Care Hospital [facility]
[2022-08-20 19:48] LABS: Absolute Lymphocyte Count 0.75 X10^3/uL (0.83-4.51); Absolute Neutrophil Count 7.1 X10^3/uL (2.0-7.7); Basophil# 0.06 X10^3/uL; Basophil% 0.7 % (0-1); Eosinophils% 2.3 % (0-5); Hemoglobin 7.9 g/dL (13.0-16.5); Lymphocyte # 0.75 X10^3/ul (0.83-4.51); Lymphocyte % 8.5 % (19-41); Mean Corp Hgb Conc 31.6 g/dL (32-36); Mean Corpuscular Hgb 27.1 pg (27.0-32.0); Mean Corpuscular Volume 85.6 fL (80-94); Mean Platelet Vol. 8.9 fl (6.2-12.0); Monocyte# 0.68 X10^3/uL; Monocyte% 7.7 % (0-10); NRBC Flagged by Analyzer 0 % (0-5); Neutrophil # 7.08 X10^3/uL (2.7-7.7); Neutrophil % 80.3 % (47-70); Platelet Count 356 K/mm3 (150-450); RBC Distribution Width CV 17.3 % (11.6-14.6); RBC Distribution Width SD 53.8 fl (35.1-43.9); Red Blood Count 2.92 M/mm3 (4.6-6.2); White Blood Count 8.8 K/mm3 (4.4-11.0)
--- NOTE | 2022-08-20 19:55 | RAD_ITS ---
STUDY: X-RAY CHEST REASON FOR EXAM: Male, 66 years old. Fever. Lethargy. Cough. Diagnosed with pneumonia. TECHNIQUE: Single AP portable view of the chest. COMPARISON: August 07, 2022 FINDINGS: The lungs are well expanded. There is no evidence of acute infiltrate or mass. Breast and left pleural effusion. Stable cardiomegaly. Evidence of prior median sternotomy. Normal mediastinum and bhupinder. Normal visualized pulmonary arteries. Normal visualized aortic arch and descending thoracic aorta. There are diffuse degenerative changes of the visualized thoracic spine. Normal visualized ribs, clavicles, and shoulders. There is no demonstrated abnormality of the visualized soft tissue structures of the upper abdomen. RAD/Chest 1 View (Portable) IMPRESSION: 1. Cardiomegaly and evidence of cardiac surgery. 2. Question small left pleural effusion. There is no acute pulmonary disease. Electronically Signed: Leno Booker DO at 20:08 EDT ,
[2022-08-20 19:58] LABS: International Normalized Ratio 2.8; Prothrombin Time (Protime)PT. 29.6 SECONDS (11.7-14.9)
[2022-08-20 20:00] LABS: Partial Thromboplast Time 68.7 Seconds (24.1-36.2)
[2022-08-20 20:04] LABS: ALB/GLOB Ratio 0.2 RATIO (0.9-2.4); AST(SGOT) 35 U/L (15-37); Alanine Aminotransfer ALT/SGPT 23 U/L (16-61); Albumin, Serum 1.5 g/dL (3.2-5.0); Alkaline Phosphatase 95 U/L (45-117); Anion Gap 5 (5-15); BUN 31 mg/dL (7-18); BUN/Creat Ratio 29.2 RATIO (10-20); Calcium,Total 8.3 mg/dL (8.5-10.1); Chloride 98 mmol/L (98-107); Creatinine, Serum 1.06 mg/dL (0.70-1.30); EST Glomerular Filtration Rate 74 mL/min (>60); Est Glom Filt Rate - Afr Amer 89 mL/min (>60); Estimated Creatinine Clearance 73.21 ml/min; Globulin 6.1 g/dL (2.2-4.2); Glucose 105 mg/dL (74-106); Potassium 3.9 mmol/L (3.5-5.1); Protein, Total 7.6 g/dL (6.4-8.2); Sodium Level 134 mmol/L (136-145)
[2022-08-20 20:09] LABS: Lactic Acid 1.2 mmol/L (0.4-1.9)
[2022-08-20 20:32] LABS: Color, Urine Yellow (Yellow); Glucose, Dipstick Normal (Normal); Ketone-Dipstick Negative (Negative); Leukocyte Esterase-Dipstick 25 /ul (Negative); Mucous, Urine 0 SEEN /hpf (<or=2+); Nitrite-Dipstick Negative (Negative); Occult Blood-Urine 150 /ul (Negative); Protein-Dipstick 15 mg/dl (Negative); Squamous Epithelial Cells - UA 0 SEEN /hpf (0-5); Urine Bilirubin Dipstick Negative (Negative); Urine Clarity Clear (Clear); Urine Urobilinogen 1 mg/dl (Normal); White Blood Cells 0 SEEN /hpf (0-5)
[2022-08-20 20:40] LABS: Bacteria RARE /hpf (None Seen); Red Blood Cells-Urine 0-5 SEEN /hpf (0-5)
[2022-08-20 20:42] LABS: Procalcitonin < 0.04 ng/mL (0.00-0.09)
--- NOTE | 2022-08-20 21:05 | EX.ED.DYSGE1 ---
HPI History of Present Illness Chief Complaint: Fever [facility] Medical History Anxiety Atrial fibrillation Back pain [facility] Cardiology follow-up encounter CHF (congestive heart failure) Coronary artery disease involving coronary bypass graft Depression Dietary restriction Difficulty chewing Former smoker Graves disease High cholesterol History of atrial fibrillation History of echocardiogram History of edema History of heart attack History of kidney stones History of pain when walking History of renal disease History of stomach ulcers History of stress test Hypertension Ischemic cardiomyopathy Neuropathy Nocturia Rheumatoid arthritis Shortness of breath on exertion Walker as ambulation aid Home Medications buspirone 15 mg tablet 15 mg PO BID ANXIETY 07/05/19 [History Last Taken 05/14/22] metoprolol succinate 200 mg tablet,extended release 24 hr 200 mg PO DAILY BLOOD PRESSURE 07/05/19 [History Last Taken 05/14/22] multivitamin with minerals 1 ea PO DAILY HEALTH MAINTENANCE 07/05/19 [History Last Taken 05/14/22] nitroglycerin 0.4 mg sublingual tablet 0.4 mg sublingual Q5M PRN CHEST PAIN 07/05/19 [History Last Taken Unknown] azathioprine 50 mg tablet 50 mg PO BID RHEUMATOID ARTHRITIS 11/29/21 [History Last Taken 05/14/22] fenofibrate 54 mg tablet 54 mg PO DAILY CHOLESTEROL 11/29/21 [History Last Taken 05/14/22] lisinopril 5 mg tablet 5 mg PO DAILY BLOOD PRESSURE 11/29/21 [History Last Taken 05/14/22] pregabalin 50 mg capsule (Lyrica) 50 mg PO BID PAIN 11/29/21 [History Last Taken 05/14/22] rivaroxaban 20 mg tablet (Xarelto) 20 mg PO QPM BLOOD THINNER 11/29/21 [History Last Taken 05/13/22] sulfasalazine 500 mg tablet 1,000 mg PO DAILY RHEUMATOID ARTHRITIS 11/29/21 [History Last Taken 05/13/22 12:00] cholecalciferol (vitamin D3) 50 mcg (2,000 unit) tablet 2,000 mcg PO DAILY SUPPLEMENT 04/22/22 [History Last Taken 05/14/22] simethicone 125 mg chewable tablet 125 mg PO BID GAS RELIEF 04/22/22 [History Last Taken 05/14/22] spironolactone 25 mg tablet 25 mg PO DAILYCM CONGESTIVE HEART FAILURE 04/22/22 [History Last Taken 05/13/22 12:00] bisacodyl 10 mg rectal suppository 10 mg CA DAILY PRN CONSTIPATION 05/14/22 [History Last Taken Unknown] citalopram 20 mg tablet 20 mg PO DAILY DEPRESSION 05/14/22 [History Last Taken 05/14/22] ferrous sulfate 325 mg (65 mg iron) tablet 325 mg PO BIDCM SUPPLEMENT 05/14/22 [History Last Taken 05/14/22 08:00] omeprazole 20 mg capsule,delayed release 20 mg PO DAILY ACID REFLUX 05/14/22 [History Last Taken 05/14/22] melatonin 5 mg tablet 5 mg PO QHS 08/03/22 [History Last Taken Unknown] atorvastatin 40 mg tablet 40 mg PO QHS 30 days #30 tabs 08/13/22 [Rx Last Taken Unknown] diltiazem HCl 120 mg capsule,extended release 24 hr 120 mg PO Q12 30 days #0 caps 08/13/22 [Rx Last Taken Unknown] torsemide 20 mg tablet 40 mg PO DAILY CONGESTIVE HEART FAILURE 30 days #0 tabs 08/13/22 [Rx Last Taken 05/14/22] valacyclovir 1 gram tablet (Valtrex) 1,000 mg PO Q8H 3 days #9 tabs 08/13/22 [Rx Last Taken Unknown] Allergy/AdvReac Type Severity Reaction Status Date / Time Penicillins [PCN] Allergy Swelling Verified 05/14/22 12:51 Family History Mother Cancer Father Heart disease Thyroid disorder Hypertension Sister Kidney disease Cancer Diabetes Brother Diabetes Surgical History H/O hernia repair History of cardiac catheterization History of esophagogastroduodenoscopy (EGD) History of incision and drainage Hx of colectomy Hx of colonoscopy Hx of heart bypass surgery S/P cervical spinal fusion S/P right knee arthroscopy Social History Smoking Status: Former smoker EXAM Physical Exam Const Vital Signs: 08/20/22 18:49 08/20/22 18:52 08/20/22 18:59 Temperature 97.3 F L Temperature Source Temporal Pulse Rate 100 Respiratory Rate 20 H Respiratory Effort Short of Breath Labored Short of Breath Labored Respiratory Pattern Normal Blood Pressure 139/86 H Blood Pressure Mean 103 Pulse Ox 99 Oxygen Delivery Method Nasal Cannula Nasal Cannula Oxygen Flow Rate (L/min) 3 3 08/20/22 19:40 08/20/22 20:07 Temperature Temperature Source Pulse Rate 91 Respiratory Rate 28 H Respiratory Effort Respiratory Pattern Blood Pressure 111/71 Blood Pressure Mean 84 Pulse Ox 93 100 Oxygen Delivery Method Nasal Cannula Nasal Cannula Oxygen Flow Rate (L/min) 3 3 [facility] Lab Data Labs: Laboratory Results - last 24 hr 08/20/22 08/20/22 08/20/22 19:05 19:05 19:05 WBC 8.8 RBC 2.92 L Hgb 7.9 L Hct 25.0 L MCV 85.6 MCH 27.1 MCHC 31.6 L RDW Std Deviation 53.8 H RDW Coeff of Trev 17.3 H Plt Count 356 MPV 8.9 Immature Gran % (Auto) 0.500 Neut % (Auto) 80.3 H Lymph % (Auto) 8.5 L [place] % (Auto) 7.7 Eos % (Auto) 2.3 Baso % (Auto) 0.7 Absolute Neuts (auto) 7.1 Absolute Lymphs (auto) 0.75 L Nucleated RBC % 0 PT 29.6 H INR 2.8 APTT 68.7 H Sodium 134 L Potassium 3.9 Chloride 98 Carbon Dioxide 31.0 Anion Gap 5 BUN 31 H Creatinine 1.06 Estim Creat Clear Calc 73.21 Est GFR (MDRD) Af Amer 89 Est GFR (MDRD) Non-Af 74 BUN/Creatinine Ratio 29.2 H Glucose 105 Lactic Acid Calcium 8.3 L Total Bilirubin 0.30 AST 35 ALT 23 Alkaline Phosphatase 95 Total Protein 7.6 Albumin 1.5 L Globulin 6.1 H Albumin/Globulin Ratio 0.2 L Procalcitonin Urine Color Urine Clarity Urine pH Ur Specific [place] Urine Protein Urine Glucose (UA) Urine Ketones Urine Occult Blood Urine Nitrite Urine Bilirubin Urine Urobilinogen Ur Leukocyte Esterase Urine RBC Urine WBC Ur Squamous Epith Cells Urine Bacteria Urine Mucus 08/20/22 08/20/22 08/20/22 19:05 19:05 20:25 WBC RBC Hgb Hct MCV MCH MCHC RDW Std Deviation RDW Coeff of Trev Plt Count MPV Immature Gran % (Auto) Neut % (Auto) Lymph % (Auto) [place] % (Auto) Eos % (Auto) Baso % (Auto) Absolute Neuts (auto) Absolute Lymphs (auto) Nucleated RBC % PT INR APTT Sodium Potassium Chloride Carbon Dioxide Anion Gap BUN Creatinine Estim Creat Clear Calc Est GFR (MDRD) Af Amer Est GFR (MDRD) Non-Af BUN/Creatinine Ratio Glucose Lactic Acid 1.2 Calcium Total Bilirubin AST ALT Alkaline Phosphatase Total Protein Albumin Globulin Albumin/Globulin Ratio Procalcitonin < 0.04 Urine Color Yellow Urine Clarity Clear Urine pH 5.0 Ur Specific [place] 1.010 Urine Protein 15 H Urine Glucose (UA) Normal Urine Ketones Negative Urine Occult Blood 150 H Urine Nitrite Negative Urine Bilirubin Negative Urine Urobilinogen 1 H Ur Leukocyte Esterase 25 H Urine RBC 0-5 SEEN Urine WBC 0 SEEN Ur Squamous Epith Cells 0 SEEN Urine Bacteria RARE Urine Mucus 0 SEEN Radiography Diagnostic Testing: Clinical Impression(s) from Imaging Studies Chest X-Ray 08/20/22 19:55 IMPRESSION: 1. Cardiomegaly and evidence of cardiac surgery. 2. Question small left pleural effusion. There is no acute pulmonary disease. Electronically Signed: Leno Booker DO at 20:08 EDT Reading Location ID and State: [address] [place] [address] Tel [phone], Service support , Discharge Plan Dx/Rx/DC Orders Clinical Impression: Fever, Acute dyspnea, Anemia Disposition Disposition: [facility]
[2022-08-20] MEDS: Ceftriaxone 1 GM/50 ML BAG IV (21:27)
[2022-08-21] VITALS (11 sets, daily range): BP systolic 92–150; BP diastolic 54–133; PULSE 82–129; RESP 16–32; TEMP 36.6–37.8; O2SAT 95–99
[2022-08-21] MEDS: dilTIAZem CD 120 MG Capsule PO ×3 (01:50→21:19)
[2022-08-21] MEDS: traMADol 50 MG Tablet PO (02:24)
[2022-08-21 06:50] LABS: Absolute Lymphocyte Count 0.57 X10^3/uL (0.83-4.51); Absolute Neutrophil Count 6.8 X10^3/uL (2.0-7.7); Basophil# 0.06 X10^3/uL; Basophil% 0.7 % (0-1); Eosinophil# 0.19 X10^3/uL; Eosinophils% 2.3 % (0-5); Hematocrit 25.5 % (40-54); Hemoglobin 8.2 g/dL (13.0-16.5); Lymphocyte # 0.57 X10^3/ul (0.83-4.51); Lymphocyte % 6.9 % (19-41); Mean Corp Hgb Conc 32.2 g/dL (32-36); Mean Corpuscular Hgb 27.7 pg (27.0-32.0); Mean Corpuscular Volume 86.1 fL (80-94); Mean Platelet Vol. 8.8 fl (6.2-12.0); Monocyte# 0.66 X10^3/uL; NRBC Flagged by Analyzer 0 % (0-5); Neutrophil # 6.75 X10^3/uL (2.7-7.7); Neutrophil % 81.6 % (47-70); POSITIVE DIFFERENTIAL YES; Platelet Count 335 K/mm3 (150-450); RBC Distribution Width CV 17.5 % (11.6-14.6); RBC Distribution Width SD 55.1 fl (35.1-43.9); Red Blood Count 2.96 M/mm3 (4.6-6.2); White Blood Count 8.3 K/mm3 (4.4-11.0)
[2022-08-21 06:54] LABS: Differential Indicated SCAN CRITERIA MET
[2022-08-21 07:31] LABS: Anion Gap 5 (5-15); BUN 29 mg/dL (7-18); BUN/Creat Ratio 30.3 RATIO (10-20); Calcium,Total 8.2 mg/dL (8.5-10.1); Chloride 100 mmol/L (98-107); Creatinine, Serum 0.96 mg/dL (0.70-1.30); EST Glomerular Filtration Rate 83 mL/min (>60); Est Glom Filt Rate - Afr Amer 100 mL/min (>60); Estimated Creatinine Clearance 80.83 ml/min; Glucose 85 mg/dL (74-106); Potassium 3.9 mmol/L (3.5-5.1); Sodium Level 134 mmol/L (136-145)
--- NOTE | 2022-08-21 07:37 | PN.HOSP_ITS ---
Hospitalist Note HPI - General General Date of Admission: 08/20/22 Date of Service: 08/21/22 Chief Complaint: hx of hypotension HPI Narrative DEMIAN NELSON, is a 66 M who presents from [facility] after episode of hypotension and reported? fever. BP was 70/50 and fever was reported to be 101. The patient ar rived with stable vitals and temperature of 97.7. The patient has no problems breathing at this time. He did feel a little off earlier today, but has no change in cough. The patient's biggest complaint is his ongoing arthritic pain and inability to feel comfortable in one position. He is on Tylenol at [facility].? Was given Rocephin and Azithromycin given a history of pneumonia. The patient was admitted for further observation due to an episode of hypotension and concern he may have further decompensation. He was recently hospitalized here for a long period of time CXR did not have any lobar consolidation. He does have chronic phlegm production and states no worsening in breathing or sputum production in last 3-7 days. He has known tremor at baseline. FOR[facility]LY [facility], [facility] Medical History? Anxiety Atrial fibrillation Back pain [facility] Cardiology follow-up encounter CHF (congestive heart failure) Coronary artery disease involving coronary bypass graft Depression Dietary restriction Difficulty chewing Former smoker Graves disease High cholesterol History of atrial fibrillation History of echocardiogram History of edema History of heart attack History of kidney stones History of pain when walking History of renal disease History of stomach ulcers History of stress test Hypertension Ischemic cardiomyopathy Neuropathy Nocturia Rheumatoid arthritis Shortness of breath on exertion Walker as ambulation aid Home Medications buspirone 15 mg tablet 15 mg PO BID ANXIETY 07/05/19 [History Last Taken 05/14/22] metoprolol succinate 200 mg tablet,extended release 24 hr 200 mg PO DAILY BLOOD PRESSURE 07/05/19 [History Last Taken 05/14/22] multivitamin with minerals 1 ea PO DAILY HEALTH MAINTENANCE 07/05/19 [History Last Taken 05/14/22] nitroglycerin 0.4 mg sublingual tablet 0.4 mg sublingual Q5M PRN CHEST PAIN 07/05/19 [History Last Taken Unknown] azathioprine 50 mg tablet 50 mg PO BID RHEUMATOID ARTHRITIS 11/29/21 [History Last Taken 05/14/22] fenofibrate 54 mg tablet 54 mg PO DAILY CHOLESTEROL 11/29/21 [History Last Taken 05/14/22] lisinopril 5 mg tablet 5 mg PO DAILY BLOOD PRESSURE 11/29/21 [History Last Taken 05/14/22] pregabalin 50 mg capsule (Lyrica) 50 mg PO BID PAIN 11/29/21 [History Last Taken 05/14/22] rivaroxaban 20 mg tablet (Xarelto) 20 mg PO QPM BLOOD THINNER 11/29/21 [History Last Taken 05/13/22] sulfasalazine 500 mg tablet 1,000 mg PO DAILY RHEUMATOID ARTHRITIS 11/29/21 [History Last Taken 05/13/22 12:00] cholecalciferol (vitamin D3) 50 mcg (2,000 unit) tablet 2,000 mcg PO DAILY SUPPLEMENT 04/22/22 [History Last Taken 05/14/22] simethicone 125 mg chewable tablet 125 mg PO BID GAS RELIEF 04/22/22 [History Last Taken 05/14/22] spironolactone 25 mg tablet 25 mg PO DAILYCM CONGESTIVE HEART FAILURE 04/22/22 [History Last Taken 05/13/22 12:00] bisacodyl 10 mg rectal suppository 10 mg AR DAILY PRN CONSTIPATION 05/14/22 [History Last Taken Unknown] citalopram 20 mg tablet 20 mg PO DAILY DEPRESSION 05/14/22 [History Last Taken 05/14/22] ferrous sulfate 325 mg (65 mg iron) tablet 325 mg PO BIDCM SUPPLEMENT 05/14/22 [History Last Taken 05/14/22 08:00] omeprazole 20 mg capsule,delayed release 20 mg PO DAILY ACID REFLUX 05/14/22 [History Last Taken 05/14/22] melatonin 5 mg tablet 5 mg PO QHS 08/03/22 [History Last Taken Unknown] atorvastatin 40 mg tablet 40 mg PO QHS 30 days #30 tabs 08/13/22 [Rx Last Taken Unknown] diltiazem HCl 120 mg capsule,extended release 24 hr 120 mg PO Q12 30 days #0 caps 08/13/22 [Rx Last Taken Unknown] torsemide 20 mg tablet 40 mg PO DAILY CONGESTIVE HEART FAILURE 30 days #0 tabs 08/13/22 [Rx Last Taken 05/14/22] Allergy/AdvReac Type Severity Reaction Status Date / Time Penicillins [PCN] Allergy ? Swelling Verified 05/14/22 12:51 Family History? Mother CancerFather Heart disease Thyroid disorder HypertensionSister Kidney disease Cancer DiabetesBrother Diabetes Surgical History? H/O hernia repair History of cardiac catheterization History of esophagogastroduodenoscopy (EGD) History of incision and drainage Hx of colectomy Hx of colonoscopy Hx of heart bypass surgery S/P cervical spinal fusion S/P right knee arthroscopy Social History? Smoking Status:? Former smoker Vital Signs Vital Signs Vital Signs: ? 08/07/22 06:53 08/07/22 09:05 08/07/22 08:30 Temperature 97.9 F ? ? Temperature Source Axillary ? ? Pulse Rate 102 H 100 99 Pulse Strength ? ? ? Respiratory Rate 20 H 30 H 26 H Respiratory Effort ? ? ? Respiratory Depth ? ? ? Respiratory Pattern ? Tachypnea Tachypnea Blood Pressure 103/60 ? ? Blood Pressure [BP] ? ? ? Blood Pressure Mean 74 ? ? Blood Pressure Mean [BP] ? ? ? Blood Pressure Source Monitor ? ? Blood Pressure Source [BP] ? ? ? Blood Pressure Position Supine ? ? Blood Pressure Position [BP] ? ? ? Blood Pressure Location Left Arm ? ? Blood Pressure Location [BP]B ? ? ? Pulse Ox 98 92 99 Oxygen Delivery Method Venturi Mask ? ? Oxygen Flow Rate (L/min) ? ? ? Fraction of Inspired Oxygen (FIO2) 30 40 40 ? 08/07/22 07:00 08/07/22 08:00 08/07/22 10:47 Temperature ? ? ? Temperature Source ? ? ? Pulse Rate 106 H 99 102 H Pulse Strength ? ? ? Respiratory Rate 24 H 25 H 35 H Respiratory Effort ? ? ? Respiratory Depth ? ? ? Respiratory Pattern ? ? Tachypnea Blood Pressure ? ? ? Blood Pressure [BP] 115/67 105/69 ? Blood Pressure Mean ? ? ? Blood Pressure Mean [BP] 83 81 ? Blood Pressure Source ? ? ? Blood Pressure Source [BP] Monitor Monitor ? Blood Pressure Position ? ? ? Blood Pressure Position [BP] Semi-Fowlers Semi-Fowlers ? Blood Pressure Location ? ? ? Blood Pressure Location [BP] Left Arm Left Arm ? Pulse Ox 99 98 93 Oxygen Delivery Method Nasal Cannula Nasal Cannula ? Oxygen Flow Rate (L/min) 5 5 ? Fraction of Inspired Oxygen (FIO2) ? ? 35 ? 08/07/22 10:00 08/07/22 10:00 08/07/22 09:00 Temperature ? ? ? Temperature Source ? ? ? Pulse Rate ? ? 100 Pulse Strength Weak (1+) ? ? Respiratory Rate ? ? 24 H Respiratory Effort ? ? ? Respiratory Depth ? ? ? Respiratory Pattern ? ? ? Blood Pressure ? ? ? Blood Pressure [BP] ? ? 103/79 Blood Pressure Mean ? ? ? Blood Pressure Mean [BP] ? ? 87 Blood Pressure Source ? ? ? Blood Pressure Source [BP] ? ? Monitor Blood Pressure Position ? ? ? Blood Pressure Position [BP] ? ? Semi-Fowlers Blood Pressure Location ? ? ? Blood Pressure Location [BP] ? ? Left Arm Pulse Ox ? 98 100 Oxygen Delivery Method ? Bi-pap Bi-pap Oxygen Flow Rate (L/min) ? ? ? Fraction of Inspired Oxygen (FIO2) ? 30 40 ? 08/07/22 10:00 08/07/22 11:00 08/07/22 12:00 Temperature ? ? 98.5 F Temperature Source ? ? Core Pulse Rate 122 H 98 110 H Pulse Strength ? ? ? Respiratory Rate 28 H 25 H 22 H Respiratory Effort ? ? ? Respiratory Depth ? ? ? Respiratory Pattern ? ? ? Blood Pressure ? ? 122/76 H Blood Pressure [BP] 100/69 110/71 ? Blood Pressure Mean ? ? 91 Blood Pressure Mean [BP] 79 84 ? Blood Pressure Source ? ? Monitor Blood Pressure Source [BP] Monitor Monitor ? Blood Pressure Position ? ? Supine Blood Pressure Position [BP] Semi-Fowlers Supine ? Blood Pressure Location ? ? Left Arm Blood Pressure Location [BP] Left Arm Left Arm ? Pulse Ox 96 98 96 Oxygen Delivery Method Bi-pap Mechanical Ventilator Room Air Oxygen Flow Rate (L/min) ? ? ? Fraction of Inspired Oxygen (FIO2) 40 40 ? ? 08/07/22 12:00 08/07/22 14:02 08/07/22 16:03 Temperature ? ? ? Temperature Source ? ? ? Pulse Rate ? 123 H ? Pulse Strength ? ? ? Respiratory Rate ? 32 H ? Respiratory Effort ? ? ? Respiratory Depth ? ? ? Respiratory Pattern ? Tachypnea ? Blood Pressure ? ? ? Blood Pressure [BP] ? ? ? Blood Pressure Mean ? ? ? Blood Pressure Mean [BP] ? ? ? Blood Pressure Source ? ? ? Blood Pressure Source [BP] ? ? ? Blood Pressure Position ? ? ? Blood Pressure Position [BP] ? ? ? Blood Pressure Location ? ? ? Blood Pressure Location [BP] ? ? ? Pulse Ox 99 94 99 Oxygen Delivery Method Bi-pap ? Bi-pap Oxygen Flow Rate (L/min) ? ? ? Fraction of Inspired Oxygen (FIO2) 30 30 30 ? 08/07/22 17:22 08/07/22 19:44 08/07/22 19:00 Temperature ? ? 98.9 F Temperature Source ? ? Core Pulse Rate 120 H ? 118 H Pulse Strength ? Weak (1+) ? Respiratory Rate 38 H ? 25 H Respiratory Effort ? ? ? Respiratory Depth ? ? ? Respiratory Pattern Tachypnea ? ? Blood Pressure ? ? ? Blood Pressure [BP] ? ? 92/62 Blood Pressure Mean ? ? ? E Blood Pressure Mean [BP] ? ? 72 Blood Pressure Source ? ? ? Blood Pressure Source [BP] ? ? Monitor Blood Pressure Position ? ? ? Blood Pressure Position [BP] ? ? Semi-Fowlers Blood Pressure Location ?B ? ? Blood Pressure Location [BP] ? ? Left Arm Pulse Ox 96 ? 94 Oxygen Delivery Method ? ? Bi-pap Oxygen Flow Rate (L/min) ? ? ? Fraction of Inspired Oxygen (FIO2) 30 ? 30 ? 08/07/22 20:00 08/07/22 20:00 08/07/22 19:58 Temperature ? 98.9 F ? Temperature Source ? Core ? Pulse Rate ? 145 H 166 H Pulse Strength ? ? ? Respiratory Rate ? 28 H ? Respiratory Effort Normal Non-Labored ? ? Respiratory Depth Normal ? ? Respiratory Pattern Normal ? ? Blood Pressure ? ? ? Blood Pressure [BP] ? 107/67 ? Blood Pressure Mean ? ? ? Blood Pressure Mean [BP] ? 80 ? Blood Pressure Source ? ? ? Blood Pressure Source [BP] ? Monitor ? Blood Pressure Position ? ? ? Blood Pressure Position [BP] ? Semi-Fowlers ? Blood Pressure Location ? ? ? Blood Pressure Location [BP] ? Left Arm ? E Pulse Ox ? 94 ? Oxygen Delivery Method Bi-pap Bi-pap ? Oxygen Flow Rate (L/min) ? ? ? Fraction of Inspired Oxygen (FIO2) 30 30 ? ? 08/07/22 20:34 08/07/22 21:00 08/07/22 22:00 Temperature ? 98.8 F 98.8 F Temperature Source ? Core Core Pulse Rate 131 H 122 H 146 H Pulse Strength ? ? ? Respiratory Rate 28 H 30 H 31 H Respiratory Effort ? ? ? Respiratory Depth ? ? ? Respiratory Pattern Tachypnea ? ? Blood Pressure ? ? ? Blood Pressure [BP] ? 107/56 L 109/95 H Blood Pressure Mean ? ? ? Blood Pressure Mean [BP] ? 73 99 Blood Pressure Source ? ? ? Blood Pressure Source [BP]B ? Monitor Monitor Blood Pressure Position ? ? ? Blood Pressure Position [BP] ? Semi-Fowlers Semi-Fowlers Blood Pressure Location ? ? ? Blood Pressure Location [BP] ? Left Arm Left Arm Pulse Ox 96 95 95 Oxygen Delivery Method ? Bi-pap Bi-pap Oxygen Flow Rate (L/min) ? ? ? Fraction of Inspired Oxygen (FIO2) 30 30 30 ? 08/07/22 23:00 08/07/22 23:46 08/08/22 00:00 Temperature 98.9 F ? 99.1 F Temperature Source Core ? Core Pulse Rate 120 H 141 H 126 H Pulse Strength ? ? ? Respiratory Rate 24 H 31 H 22 H Respiratory Effort ? ? ? Respiratory Depth ? ? ? Respiratory Pattern ? Tachypnea ? Blood Pressure ? ? 111/73 Blood Pressure [BP] 118/66 ? ? Blood Pressure Mean ? ? 85 Blood Pressure Mean [BP] 83 ? ? Blood Pressure Source ? ? Monitor Blood Pressure Source [BP] Monitor ? ? Blood Pressure Position ? ? Semi-Fowlers Blood Pressure Position [BP] Semi-Fowlers ? ? Blood Pressure Location ? ? Left Arm Blood Pressure Location [BP] Left Arm ? ? Pulse Ox 97 97 96 Oxygen Delivery Method Nasal Cannula ? Bi-pap Oxygen Flow Rate (L/min) 5 ? ? Fraction of Inspired Oxygen (FIO2) ? 30 30 ? 08/08/22 01:00 08/07/22 23:50 08/08/22 02:05 Temperature 99.3 F H ? ? Temperature Source Core ? ? Pulse Rate 131 H ? 139 H Pulse Strength ? ? ? Respiratory Rate 26 H ? 27 H Respiratory Effort ? Normal Non-Labored ? Respiratory Depth ? Normal ? Respiratory Pattern ? Normal ? Blood Pressure ? ? 102/81 H Blood Pressure [BP] 113/68 ? ? Blood Pressure Mean ? ? 88 Blood Pressure Mean [BP] 83 ? ? Blood Pressure Source ? ? Monitor Blood Pressure Source [BP] Monitor ? ? Blood Pressure Position ? ? ? Blood Pressure Position [BP] Semi-Fowlers ? ? Blood Pressure Location ? ? ? Blood Pressure Location [BP] Left Arm ? ? Pulse Ox 96 ? 97 Oxygen Delivery Method Bi-pap Bi-pap Bi-pap Oxygen Flow Rate (L/min) ? ? ? Fraction of Inspired Oxygen (FIO2) 30 30 30 ? 08/08/22 02:15 08/08/22 02:00 08/08/22 02:30 Temperature ? 99.5 F H ? Temperature Source ? Core ? Pulse Rate 129 H 126 H 138 H Pulse StrengthB ? ? ? Respiratory Rate 24 H 27 H 22 H Respiratory Effort ? ? ? Respiratory Depth ? ? ? Respiratory Pattern ? ? ? Blood Pressure 121/74 H ? 99/73 Blood Pressure [BP] ? 102/81 H ? Blood Pressure Mean 89 ? 81 Blood Pressure Mean [BP] ? 88 ? Blood Pressure Source Monitor ? Monitor Blood Pressure Source [BP] ? Monitor ? Blood Pressure Position ? ? ? Blood Pressure Position [BP] ? Semi-Fowlers ? Blood Pressure Location ? ? ? Blood Pressure Location [BP] ? Left Arm ? Pulse Ox 98 97 98 Oxygen Delivery Method Bi-pap Bi-pap Bi-pap Oxygen Flow Rate (L/min) ? ? ? Fraction of Inspired Oxygen (FIO2) 30 30 30 ? 08/08/22 02:45 08/08/22 03:00 08/08/22 02:20 Temperature ? ? ? Temperature Source ? ? ? Pulse Rate 143 H 115 H 138 H Pulse Strength ? ? ? Respiratory Rate 23 H 27 H 22 H Respiratory Effort ? ? ? Respiratory Depth ? ? ? Respiratory Pattern ? ? Tachypnea Blood Pressure 112/65 99/69 ? Blood Pressure [BP] ? ? ? Blood Pressure Mean 80 79 ? Blood Pressure Mean [BP] ? ? ? Blood Pressure Source Monitor Monitor ? Blood Pressure Source [BP] ? ? ? Blood Pressure Position ? ? ? Blood Pressure Position [BP] ? ? ? Blood Pressure Location ? ? ? Blood Pressure Location [BP] ? ? ? Pulse Ox 96 97 96 Oxygen Delivery Method Bi-pap Bi-pap ? Oxygen Flow Rate (L/min) ? ? ? Fraction of Inspired Oxygen (FIO2) 30 30 30 ? 08/08/22 03:15 08/08/22 03:30 08/08/22 03:45 Temperature 99.7 F H ? ? Temperature Source Core ? ? Pulse Rate 124 H 126 H 123 H Pulse Strength ? ? ? Respiratory Rate 27 H 16 23 H Respiratory Effort ? ? ? Respiratory Depth ? ? ? Respiratory Pattern ? ? ? Blood Pressure 110/74 135/61 H 105/90 H Blood Pressure [BP] ? ? ? Blood Pressure Mean 86 85 95 Blood Pressure Mean [BP] ? ? ? Blood Pressure Source Monitor Monitor Monitor Blood Pressure Source [BP] ? ? ? Blood Pressure Position ? ? ? Blood Pressure Position [BP] ? ? ? Blood Pressure Location ? ? ? Blood Pressure Location [BP] ? ? ? Pulse Ox 98 94 92 Oxygen Delivery Method Bi-pap Bi-pap Nasal Cannula Oxygen Flow Rate (L/min) ? ? 5 Fraction of Inspired Oxygen (FIO2) 30 30 ? ? 08/08/22 04:00 08/08/22 04:15 08/08/22 04:00 Temperature 99.7 F H ? ? Temperature Source Core ? ? Pulse Rate 120 H 111 H ? Pulse Strength ? ? ? Respiratory Rate 20 H 30 H ? Respiratory Effort ? ? Normal Non-Labored Respiratory Depth ? ? Normal Respiratory Pattern ? ? Normal Blood Pressure 140/77 H 125/82 H ? Blood Pressure [BP] ? ? ? Blood Pressure Mean 98 96 ? Blood Pressure Mean [BP] ? ? ? Blood Pressure Source Monitor Monitor ? Blood Pressure Source [BP] ? ? ? Blood Pressure Position ? ? ? Blood Pressure Position [BP] ? ? ? Blood Pressure Location ? ? ? Blood Pressure Location [BP] ? ? ? Pulse Ox 94 97 ? Oxygen Delivery Method Bi-pap Bi-pap Bi-pap Oxygen Flow Rate (L/min) ? ? ? Fraction of Inspired Oxygen (FIO2) 30 30 30 ? 08/08/22 05:00 08/08/22 04:37 08/08/22 05:58 Temperature ? ? ? Temperature Source ? ? ? Pulse Rate 128 H 103 H ? Pulse Strength ? ? ? Respiratory Rate 22 H 33 H ? Respiratory Effort ? ? ? Respiratory Depth ? ? ? Respiratory Pattern ? Tachypnea ? Blood Pressure 117/79 ? ? Blood Pressure [BP] ? ? ? Blood Pressure Mean 91 ? ? Blood Pressure Mean [BP] ? ? ? Blood Pressure Source Monitor ? ? Blood Pressure Source [BP] ? ? ? Blood Pressure Position ? ? ? Blood Pressure Position [BP] ? ? ? Blood Pressure Location ? ? ? Blood Pressure Location [BP] ? ? ? Pulse Ox 90 96 86 Oxygen Delivery Method Bi-pap ? Bi-pap Oxygen Flow Rate (L/min) ? ? ? Fraction of Inspired Oxygen (FIO2) 30 30 30 ? 08/08/22 06:00 Temperature ? Temperature Source ? Pulse Rate 123 H Pulse Strength ? Respiratory Rate 24 H Respiratory Effort ? Respiratory Depth ? Respiratory PatternB ? Blood Pressure 130/70 H Blood Pressure [BP] ? Blood Pressure Mean 90 Blood Pressure Mean [BP] ? Blood Pressure Source Monitor Blood Pressure Source [BP] ? Blood Pressure Position ? Blood Pressure Position [BP] ? E Blood Pressure Location ? Blood Pressure Location [BP] ? Pulse Ox 91 Oxygen Delivery Method Bi-pap Oxygen Flow Rate (L/min) ? Fraction of Inspired Oxygen (FIO2) 40 Weight Weight: ? 297 lb 2.93 oz? Body Mass Index (BMI) ? 38.1? Physical Exam Const alert, no apparent distress and well nourished HEENT normocephalic and head/scalp atraumatic Eyes PERRL and EOMs intact bilaterally Neck no lymphadenopathy Resp normal respiratory effort Cardio regular rate and regular rhythm GI normal to inspection, nondistended, normoactive bowel sounds Extremity Extremity Narrative: Mild trace pitting edema on shins. Psych affect normal Results Medical Records Data Attestation: I reviewed the patient's medical records Lab / Micro Data Attestation: I reviewed the patient's lab results. Result Diagrams: 08/13/22 07:04? 08/13/22 07:04? Labs: Laboratory Results - last 24 hr 08/05/22 21:45: Ionized Calcium 5.7 H 08/05/22 21:45: Vit D 1,25-Dihydroxy 11.8 L 08/07/22 05:24:?Sodium 141, Potassium 3.6,?Chloride 110 H, Carbon Dioxide 24.0, Anion Gap 7,?BUN 31 H, Creatinine 1.00, Estim Creat Clear Calc 82.20, Est GFR (MDRD) Af Amer 96, Est GFR (MDRD) Non-Af 79,?BUN/Creatinine Ratio 31.1 H, Glucose 104,?Calcium 10.9 H, Total Bilirubin 0.40, AST 26, ALT 16, Alkaline Phosphatase 77, Total Protein 7.8,?Albumin 1.8 L,?Globulin 6.0 H,? Albumin/Globulin Ratio 0.3 L 08/07/22 05:24:?Total Creatine Kinase 103 08/07/22 07:44:?POC Glucose 94 08/07/22 11:55:?Ammonia 21.0 08/08/22 03:17: WBC 12.4 H,?RBC 3.03 L,?Hgb 8.3 L,?Hct 26.1 L, MCV 86.1, MCH 27.4,?MCHC 31.8 L,?RDW Std Deviation 53.1 H,?RDW Coeff of Trev 17.1 H,?Plt Count 469 H, MPV 8.8, Immature Gran % (Auto) 0.600,?Neut % (Auto) 83.0 H,?Lymph % (Auto) 6.0 L, Butler % (Auto) 7.3, Eos % (Auto) 2.7, Baso % (Auto) 0.4,?Absolute Neuts (auto) 10.3 H,?Absolute Lymphs (auto) 0.74 L, Nucleated RBC % 0.3 08/08/22 03:17:?Sodium 144,?Potassium 3.2 L,?Chloride 111 H, Carbon Dioxide 26.0, Anion Gap 7,?BUN 28 H, Creatinine 1.07, Estim Creat Clear Calc 76.82, Est GFR (MDRD) Af Amer 88, Est GFR (MDRD) Non-Af 73,?BUN/Creatinine Ratio 26.2 H,? Glucose 110 H,?Calcium 11.0 H, Total Bilirubin 0.30, AST 20,?ALT 11 L, Alkaline Phosphatase 73, Total Protein 7.5,?Albumin 1.7 L,?Globulin 5.8 H,? Albumin/Globulin Ratio 0.3 L Micro: Microbiology 08/04/22 00:01 ? Sputum, Expectorated/Coughed ? Gram Stain - Final 08/04/22 00:01 ? Sputum, Expectorated/Coughed ? Respiratory Culture - Final ? Meth. resistant Staph. aureus ABG Data ABG results: ABG ? 08/07/22 ? 08:43 Specimen Type ?ART Sample Site ?L Radial pH ?7.38 Bicarbonate Actual ?24.8 Total CO2 ?26 Base Excess ?0 O2 Saturation ?98 ABG pCO2 ?42.0 ABG pO2 ?104 H William Test ?Positive O2 Delivery Device ?Cannula Liter Flow ?5.0 Radiology Impression Chest X-Ray? 08/07/22 08:20 IMPRESSION: ? Resolving pulmonary edema. ? Electronically Signed: Pawel Mcwilliams MD at 9:20 EDT , ? Assessment & Plan Assessment/Plan (1) Lumbar spondylosis: (2) Anemia: (3) Morbid obesity: (4) Current use of medical terminologist anticoagulation: (5) Coronary artery disease: (6) Chronic systolic (congestive) heart failure: PLAN: Plan #Hypotension episode with one reported fever. - Check procal. - No luekocytosis. stable resp function compared to prior. He has apnea at baseline. Check Flu A and B - The patients blood pressure is excellent on admission. - Will watch for fevers overnight. - Incentive spirometry - Obs overnight. At this point will cover for PNA with Rocephin and Azithromycin #Chronic Normocytic anemia/Fe deficiency anemia -Admission hemoglobin 7.9 similar to baseline. -Hold iron supplementation as inpatient. #Afib - Resume diltiazem BID dosing. #Diffuse tremors -Has been evaluated by neurology twice last admission -Monitor calcium as on last amdmission ? #apneic episodes on top of chronic hypoxic respiratory failure -On 2 L nasal cannula baseline -Will restart BIPAP at night if warranted. #Cervical spondylosis -MRI as outpatient as per prior plan. #Chronic systolic CHF -Resume Torsemide and spironolactone -Continue? medical management - not overloaded at this point. -Resume 5 mg lisinopril. #History of rheumatoid arthritis -Presently on sulfasalazine and azathioprine #History of Graves' disease -Documented in history with unclear course or interventions ? #History of MRSA pneumonia - Not exhibiting signs of pneumonia, Rocephin and Azithromycin.? #Hx CAD s/p CABG and PCI -Continue statin and metoprolol #Hx bowel perforation s/p partial colectomy #GERD w/ Hx GI bleed/gastric ulcers -Continue PPI #DVT ppx: Continue Xarelto Full Code. d/w patient Charges/Coding Visit Charges Inpatient E&M: 10963 Init Hosp L3
[2022-08-21 07:38] LABS: Differential Comment SCANNED
--- NOTE | 2022-08-21 08:06 | PN.HOSP_ITS ---
Subjective Subjective Breathing well. Complains of diffuse arthralgias, which are chronic. Objective Data Objective Data Vital Signs: Vital Signs Temp Pulse Resp BP Pulse Ox O2 Del Method O2 Flow Rate 37.2 C 108 H 28 H 99/84 H 96 Nasal Cannula 3 08/21/22 04:20 08/21/22 04:20 08/21/22 04:20 08/21/22 04:20 08/21/22 04:20 08/21/22 04:20 08/21/22 04:20 Oxygen Flow Rate (L/min) 3 Oxygen Delivery Method Nasal Cannula Weight: 136.078 kg Body Mass Index (BMI) 40.6 Intake & Output: Intake and Output for Last 24 Hours 08/19/22 08/20/22 08/21/22 23:59 23:59 23:59 Intake Total 550 / 550 255 / 255 Output Total 300 / 300 Balance 550 / 550 -45 / -45 Lab / Micro Data Result Diagrams: 08/21/22 06:20 08/21/22 06:20 Labs: Laboratory Results - last 24 hr 08/20/22 19:05: WBC 8.8, RBC 2.92 L, Hgb 7.9 L, Hct 25.0 L, MCV 85.6, MCH 27.1, MCHC 31.6 L, RDW Std Deviation 53.8 H, RDW Coeff of Trev 17.3 H, Plt Count 356, MPV 8.9, Immature Gran % (Auto) 0.500, Neut % (Auto) 80.3 H, Lymph % (Auto) 8.5 L, [place] % (Auto) 7.7, Eos % (Auto) 2.3, Baso % (Auto) 0.7, Absolute Neuts (auto) 7.1, Absolute Lymphs (auto) 0.75 L, Nucleated RBC % 0 08/20/22 19:05: PT 29.6 H, INR 2.8, APTT 68.7 H 08/20/22 19:05: Sodium 134 L, Potassium 3.9, Chloride 98, Carbon Dioxide 31.0, Anion Gap 5, BUN 31 H, Creatinine 1.06, Estim Creat Clear Calc 73.21, Est GFR (MDRD) Af Amer 89, Est GFR (MDRD) Non-Af 74, BUN/Creatinine Ratio 29.2 H, Glucose 105, Calcium 8.3 L, Total Bilirubin 0.30, AST 35, ALT 23, Alkaline Phosphatase 95, Total Protein 7.6, Albumin 1.5 L, Globulin 6.1 H, Albumin/Globulin Ratio 0.2 L 08/20/22 19:05: Lactic Acid 1.2 08/20/22 19:05: Procalcitonin < 0.04 08/20/22 20:25: Urine Color Yellow, Urine Clarity Clear, Urine pH 5.0, Ur Specific [place] 1.010, Urine Protein 15 H, Urine Glucose (UA) Normal, Urine Ketones Negative, Urine Occult Blood 150 H, Urine Nitrite Negative, Urine Bilirubin Negative, Urine Urobilinogen 1 H, Ur Leukocyte Esterase 25 H, Urine RBC 0-5 SEEN, Urine WBC 0 SEEN, Ur Squamous Epith Cells 0 SEEN, Urine Bacteria RARE, Urine Mucus 0 SEEN 08/21/22 06:20: WBC 8.3, RBC 2.96 L, Hgb 8.2 L, Hct 25.5 L, MCV 86.1, MCH 27.7, MCHC 32.2, RDW Std Deviation 55.1 H, RDW Coeff of Trev 17.5 H, Plt Count 335, MPV 8.8, Immature Gran % (Auto) 0.500, Neut % (Auto) 81.6 H, Lymph % (Auto) 6.9 L, [place] % (Auto) 8.0, Eos % (Auto) 2.3, Baso % (Auto) 0.7, Absolute Neuts (auto) 6.8, Absolute Lymphs (auto) 0.57 L, Nucleated RBC % 0, Differential Comment SCANNED 08/21/22 06:20: Sodium 134 L, Potassium 3.9, Chloride 100, Carbon Dioxide 29.0, Anion Gap 5, BUN 29 H, Creatinine 0.96, Estim Creat Clear Calc 80.83, Est GFR (MDRD) Af Amer 100, Est GFR (MDRD) Non-Af 83, BUN/Creatinine Ratio 30.3 H, Gluco se 85, Calcium 8.2 L Micro: Microbiology 08/21/22 01:10 Mucosa - Nose Influenza Types A,B Direct FA (MUKUND) - Final Radiography Diagnostic Testing: Radiology Impression Chest X-Ray 08/20/22 19:55 IMPRESSION: 1. Cardiomegaly and evidence of cardiac surgery. 2. Question small left pleural effusion. There is no acute pulmonary disease. Electronically Signed: Leno Booker DO at 20:08 EDT Reading Location ID and State: [address] [place] [address] Tel [phone], Service support , Physical Exam Const alert and no apparent distress HEENT head/scalp atraumatic and moist oral mucous membranes Resp normal respiratory effort, no retractions, no use of accessory muscles and clear to auscultation bilaterally Cardio regular rate, regular rhythm, S1 normal heart sound and S2 normal heart sound GI normal to inspection, nondistended, normoactive bowel sounds, soft to palpation, non-tender and non-distended Assessment & Plan Assessment/Plan (1) Fever: PLAN: UA negative CXR reviewed: poor quality. No infiltrate Influenza negative resp panel, COVID negative Blood culture pending. Received CTX and azithro in ED. (2) Chronic pain: PLAN: Diffuse arthralgias from RA schedule acetaminophen morphine palliative care follow up PLAN: Plan Chronic conditions: * anemia * GERD * debility * ALEJANDRA * OA * Graves dz * HFpEF, chronic: torsemide, spironolactone * HTN: on lisiopril * depression: citalopram * afib: xarelto, dilt, metop succinate * RA: sulfasalazine Advance care planning: Spent an additional 20 minutes discussing with the patient about advanced directives. Patient actually initiated that conversation. Patient stated that he would not want to be intubated. I discussed CPR and what that entails and told him that if he does not want to be intubated that I would recommend against CPR. He was in agreement. Patient will be DNR Comfort Care arrest no intubation. Charges/Coding Visit Charges Inpatient E&M: 48948 Subs Hosp L2 Procedures Hospitalists Procedures: 54449 Critial Care Addl 30 Min
[2022-08-21 08:20] LABS: Procalcitonin < 0.04 ng/mL (0.00-0.09)
[2022-08-21] MEDS: Lisinopril 5 MG Tablet PO (09:24)
[2022-08-21] MEDS: Pregabalin 50 MG Capsule PO ×2 (09:24→21:19)
[2022-08-21] MEDS: Metoprolol(XL)Succ 200 MG Tablet PO (09:24)
[2022-08-21] MEDS: Cholecalciferol (VIT D3) 25 MCG TABLET (1,000 UNITS) 50 MCG PO (09:24)
[2022-08-21] MEDS: Fenofibrate 48 MG Tablet PO (09:24)
[2022-08-21] MEDS: Furosemide 80 MG Tablet PO (09:25)
[2022-08-21] MEDS: busPIRone 15 MG TABLET PO ×2 (09:25→21:19)
[2022-08-21] MEDS: Citalopram 20 MG Tablet PO (09:25)
[2022-08-21] MEDS: Spironolactone 25 MG Tablet PO (09:26)
[2022-08-21] MEDS: azaTHIOprine 50 MG Tablet PO ×2 (09:26→17:22)
[2022-08-21] MEDS: sulfaSALAzine 500 MG Tablet 1000 MG PO (09:26)
[2022-08-21] MEDS: Multivitamins,Ther W-Minerals Tablet 1 TABLET PO (09:26)
[2022-08-21 13:05] LABS: M R Staph aureus DNA By PCR Negative (Negative); Probe Check PASS; Specimen Processing Control PASS
[2022-08-21] MEDS: Acetaminophen 500 MG Tablet 1000 MG PO ×2 (14:21→21:18)
--- NOTE | 2022-08-21 14:26 | CASEMGMT ---
Discharge Planning [facility] Return referral sent via [facility]. Leela Bass, Discharge Planning Asst.
[2022-08-21] MEDS: Rivaroxaban 20 MG Tablet PO (17:22)
[2022-08-21] MEDS: Atorvastatin Calcium 40 MG Tablet PO (21:18)
[2022-08-21] MEDS: MELATONIN 10 MG TABLET 5 MG PO (21:19)
[2022-08-22 07:58] VITALS: O2SAT 94
--- NOTE | 2022-08-22 08:07 | PN.HOSP_ITS ---
Reason for Visit Reason for Visit: Diagnoses Other chronic pain (08/21/22) Fever, unspecified (08/21/22) Subjective Subjective Complains of chills and arthralgias. Objective Data Objective Data Vital Signs: Vital Signs Temp Pulse Resp BP Pulse Ox O2 Del Method O2 Flow Rate 36.6 C 95 18 108/78 94 Nasal Cannula 4 08/21/22 21:30 08/21/22 21:30 08/21/22 21:30 08/21/22 21:30 08/22/22 07:58 08/22/22 07:58 08/22/22 07:58 Oxygen Flow Rate (L/min) 4 Oxygen Delivery Method Nasal Cannula Weight: 136.078 kg Body Mass Index (BMI) 40.6 Intake & Output: Intake and Output for Last 24 Hours 08/20/22 08/21/22 08/22/22 23:59 23:59 23:59 Intake Total 550 / 550 1345 / 1345 Output Total 2300 / 2500 400 / 400 Balance 550 / 550 -955 / -1155 -400 / -400 Lab / Micro Data Result Diagrams: 08/21/22 06:20 08/21/22 06:20 Labs: Laboratory Results - last 24 hr 08/21/22 06:20: Procalcitonin < 0.04 08/21/22 09:10: MRSA (PCR) Negative Micro: Microbiology 08/20/22 20:25 Urine, Random Urine Culture - Preliminary 08/21/22 09:10 Nasal Secretion SARS-CoV-2 Antigen (Rapid) - Final 08/21/22 01:10 Mucosa - Nose Influenza Types A,B Direct FA (MUKUND) - Final Physical Exam Const alert and no apparent distress HEENT head/scalp atraumatic and moist oral mucous membranes Resp normal respiratory effort, no retractions, no use of accessory muscles and clear to auscultation bilaterally Cardio regular rate, regular rhythm, S1 normal heart sound and S2 normal heart sound Assessment & Plan Assessment/Plan (1) Fever: PLAN: UA negative CXR reviewed: poor quality. No infiltrate Influenza negative resp panelpending, COVID negative Blood culture thus far negative Received CTX and azithro in ED. in the abscence of worsening condition, negative work up. No additional needs to further hospitalization. (2) Chronic pain: PLAN: Diffuse arthralgias from RA schedule acetaminophen morphine palliative care follow up PLAN: Plan Chronic conditions: * anemia * GERD * debility * ALEJANDRA * OA * Graves dz * HFpEF, chronic: torsemide, spironolactone * HTN: on lisiopril * depression: citalopram * afib: xarelto, dilt, metop succinate * RA: sulfasalazine DNRCCA, no intubation Charges/Coding Visit Charges Inpatient E&M: 04152 Subs Hosp L2
[2022-08-22 08:10] VITALS: BP 110/73; PULSE 75; RESP 18; TEMP 36.9; O2SAT 94
[2022-08-22] MEDS: azaTHIOprine 50 MG Tablet PO (08:25)
[2022-08-22] MEDS: Spironolactone 25 MG Tablet PO (08:25)
[2022-08-22] MEDS: sulfaSALAzine 500 MG Tablet 1000 MG PO (08:25)
[2022-08-22] MEDS: Multivitamins,Ther W-Minerals Tablet 1 TABLET PO (08:25)
[2022-08-22] MEDS: 0.9% Saline Lock 10 ML Syringe IV (08:25)
[2022-08-22 08:26] VITALS: BP 110/73; PULSE 75
[2022-08-22] MEDS: busPIRone 15 MG TABLET PO (08:26)
[2022-08-22] MEDS: dilTIAZem CD 120 MG Capsule PO (08:26)
[2022-08-22] MEDS: Citalopram 20 MG Tablet PO (08:26)
[2022-08-22] MEDS: Metoprolol(XL)Succ 200 MG Tablet PO (08:26)
[2022-08-22] MEDS: Furosemide 80 MG Tablet PO (08:26)
[2022-08-22] MEDS: Cholecalciferol (VIT D3) 25 MCG TABLET (1,000 UNITS) 50 MCG PO (08:27)
[2022-08-22] MEDS: Fenofibrate 48 MG Tablet PO (08:27)
[2022-08-22] MEDS: Lisinopril 5 MG Tablet PO (08:27)
[2022-08-22] MEDS: Pregabalin 50 MG Capsule PO (10:31)
--- NOTE | 2022-08-22 10:56 | CASEMGMT ---
MARISELA CM in to complete BELTRAN form at this time. RN CM explained BELTRAN form to patient, patient voiced understanding. Patient signed BELTRAN form and filed in chart. Patient provided with copy of signed BELTRAN form. Patient had no further questions or concerns at this time.
--- NOTE | 2022-08-22 11:06 | PCM.TXEXTCAR ---
Diet Diet Order/Speech Therapy: 08/21/22 00:32 Diet: Cardiac - Heart Healthy Food consistency:: Regular Liquid Consistency:: Regular/Thin Is pt able to select menu?: Yes Routine Orders/Code Status O2 Liters per Minute: 4 O2 Frequency: Continuous Keep PO Greater than or Equal to (%): 90 Routine Lab Work: CBC Code Status: DNRCC-A (no intubation) Therapies Weight Bearing: Full weight bearing Physical Therapy: Eval and Treat Occupational Therapy: Eval and Treat Problem/Diagnosis (1) Fever: Status: Acute Code(s): R50.9 - Fever, unspecified Plan: UA negative CXR reviewed: poor quality. No infiltrate Influenza negative resp panelpending, COVID negative Blood culture thus far negative Received CTX and azithro in ED. in the abscence of worsening condition, negative work up. No additional needs to further hospitalization. (2) Chronic pain: Status: Chronic Code(s): G89.29 - Other chronic pain Plan: Diffuse arthralgias from RA schedule acetaminophen morphine palliative care follow up Plan Chronic conditions: anemia GERD debility ALEJANDRA OA Graves dz HFpEF, chronic: torsemide, spironolactone HTN: on lisiopril depression: citalopram afib: xarelto, dilt, metop succinate RA: sulfasalazine DNRCCA, no intubation Allergies/Procedures Done in Hospital Allergies Penicillins [PCN] Allergy (Verified 05/14/22 12:51) Swelling Procedures: None Type of Care/Length of Stay Estimated LOS: Convalescent Care Less Than 30 days Type of Care Needed: Skilled Rehab Potential: Fair Prognosis: Fair Additional Orders/Day of Discharge Day of Discharge: 08/22/22 Discharge Plan Admission Admit Date/Time: 08/21/22 00:32 Primary Reason for Your Visit: Fever Attending Provider: Allen Watts Primary Care Provider: Eric Kang Consulting Providers: Ariel Willoughby ; George Chase ; Tania Allen ; Kassy Stallings ; Kimber Juárez DELIVERY HELPER Discharge Orders/Prescriptions Prescriptions: New acetaminophen 500 mg Tablet 1,000 mg PO Q8 Qty: 0 0RF morphine 15 mg Tablet 7.5 mg PO Q6 PRN (Reason: Pain Score 6-10) 3 Days Qty: 12 0RF Chloraseptic Sore Throat 6-10 mg Lozenge 1 chintan mucous membrane Q2H PRN PRN (Reason: SORE THROAT) Qty: 0 0RF Continued metoprolol succinate 200 MG tablet extended release 24 hr 200 mg PO DAILY buspirone 15 MG tablet 15 mg PO BID nitroglycerin 0.4 MG tablet, sublingual 0.4 mg sublingual Q5M PRN (Reason: CHEST PAIN ) multivitamin with minerals 1 EACH tablet 1 ea PO DAILY Xarelto 20 mg Tablet 20 mg PO QPM sulfasalazine 500 mg Tablet 1,000 mg PO DAILY azathioprine 50 mg Tablet 50 mg PO BID lisinopril 5 mg Tablet 5 mg PO DAILY Hold Instructions: Resume on 04/28/22. pregabalin [Lyrica] 50 mg Capsule 50 mg PO BID fenofibrate 54 mg Tablet 54 mg PO DAILY simethicone 125 mg Tablet,Chewable 125 mg PO BID cholecalciferol (vitamin D3) 50 mcg (2,000 unit) Tablet 2,000 mcg PO DAILY spironolactone 25 MG tablet 25 mg PO DAILYCM Hold Instructions: Resume on 04/28/22. citalopram 20 mg Tablet 20 mg PO DAILY omeprazole 20 mg Capsule,Delayed Release(Dr/Ec) 20 mg PO DAILY bisacodyl 10 mg Suppository 10 mg [place] DAILY PRN (Reason: CONSTIPATION ) ferrous sulfate 325 MG tablet 325 mg PO BIDCM melatonin 5 mg Tablet 5 mg PO QHS atorvastatin 40 mg Tablet 40 mg PO QHS 30 Days Qty: 30 0RF diltiazem HCl 120 mg Capsule,Extended Release 24hr 120 mg PO Q12 30 Days Qty: 0 0RF torsemide 20 mg Tablet 40 mg PO DAILY 30 Days Qty: 0 0RF Referrals / Follow Up: Jj Rogers MD [Non-Staff] - Eric Kang MD [Primary Care Provider] - Within 2 Weeks Disposition Disposition (needs filled in before D/C Order can be placed): [facility]
--- NOTE | 2022-08-22 11:18 | DS.PCM_ITS ---
Providers Date of Admission: 08/21/22 Primary Care Physician: Dr. Eric Kang MD Consultations 08/21/22 13:43 Consult: Hospice / Palliative Care Routine Consulting Provider: [facility] Reason for Consult: palliative care consult EMERGENT Consult: No MD Notified: Yes Date Notified: 08/21/22 Time Notified: 15:17 Method of Notification: per casemanagement Reason For Visit: HISTORY OF HYPOTENSION Diagnosis Discharge Diagnosis (1) Fever: Status: Acute Code(s): R50.9 - Fever, unspecified Plan: UA negative CXR reviewed: poor quality. No infiltrate Influenza negative resp panelpending, COVID negative Blood culture thus far negative Received CTX and azithro in ED. in the abscence of worsening condition, negative work up. No additional needs to further hospitalization. (2) Chronic pain: Status: Chronic Code(s): G89.29 - Other chronic pain Plan: Diffuse arthralgias from RA schedule acetaminophen morphine palliative care follow up Plan Chronic conditions: * anemia * GERD * debility * ALEJANDRA * OA * Graves dz * HFpEF, chronic: torsemide, spironolactone * HTN: on lisiopril * depression: citalopram * afib: xarelto, dilt, metop succinate * RA: sulfasalazine DNRCCA, no intubation Medications at Discharge Home Medications buspirone 15 mg tablet 15 mg PO BID ANXIETY 07/05/19 metoprolol succinate 200 mg tablet,extended release 24 hr 200 mg PO DAILY BLOOD PRESSURE 07/05/19 multivitamin with minerals 1 ea PO DAILY HEALTH MAINTENANCE 07/05/19 nitroglycerin 0.4 mg sublingual tablet 0.4 mg sublingual Q5M PRN CHEST PAIN 07/05/19 azathioprine 50 mg tablet 50 mg PO BID RHEUMATOID ARTHRITIS 11/29/21 fenofibrate 54 mg tablet 54 mg PO DAILY CHOLESTEROL 11/29/21 lisinopril 5 mg tablet 5 mg PO DAILY BLOOD PRESSURE 11/29/21 pregabalin 50 mg capsule (Lyrica) 50 mg PO BID PAIN 11/29/21 rivaroxaban 20 mg tablet (Xarelto) 20 mg PO QPM BLOOD THINNER 11/29/21 sulfasalazine 500 mg tablet 1,000 mg PO DAILY RHEUMATOID ARTHRITIS 11/29/21 cholecalciferol (vitamin D3) 50 mcg (2,000 unit) tablet 2,000 mcg PO DAILY SUPPLEMENT 04/22/22 simethicone 125 mg chewable tablet 125 mg PO BID GAS RELIEF 04/22/22 spironolactone 25 mg tablet 25 mg PO DAILYCM CONGESTIVE HEART FAILURE 04/22/22 bisacodyl 10 mg rectal suppository 10 mg [place] DAILY PRN CONSTIPATION 05/14/22 citalopram 20 mg tablet 20 mg PO DAILY DEPRESSION 05/14/22 ferrous sulfate 325 mg (65 mg iron) tablet 325 mg PO BIDCM SUPPLEMENT 05/14/22 omeprazole 20 mg capsule,delayed release 20 mg PO DAILY ACID REFLUX 05/14/22 melatonin 5 mg tablet 5 mg PO QHS 08/03/22 atorvastatin 40 mg tablet 40 mg PO QHS 30 days #30 tabs 08/13/22 diltiazem HCl 120 mg capsule,extended release 24 hr 120 mg PO Q12 30 days #0 caps 08/13/22 torsemide 20 mg tablet 40 mg PO DAILY CONGESTIVE HEART FAILURE 30 days #0 tabs 08/13/22 acetaminophen 500 mg tablet 1,000 mg PO Q8 #0 tabs 08/22/22 benzocaine 6 mg-menthol 10 mg lozenges (Chloraseptic Sore Throat) 1 chintan mucous membrane Q2H PRN PRN SORE THROAT #0 ea 08/22/22 morphine 15 mg immediate release tablet 7.5 mg PO Q6 PRN Pain Score 6-10 3 days #12 tabs 08/22/22 Hospital Course Operations None Procedures None Summary of Care Provided Minutes Spent on Discharge: 32 Hospital Course: Patient presents with fever from outside facility. Patient was previously hospitalized here for pneumonia and [facility]. Patient was having fevers. Chest x-ray showed no further infiltrate. Patient did receive antibiotics in the emergency room but was held on the floor. Patient underwent infectious work-up that came back unremarkable. Though a respiratory viral panel still pending. Patient's had some subjective chills but remains afebrile and has had no leukocytosis. No additional infectious work-up is necessary in the hospital. Patient did have complaints of diffuse myalgias. Patient does have chronic back pain as well as rheumatoid arthritis. Patient has been started on morphine as needed. Patient was open to meeting with palliative care to help with symptom control given his multiple medical comorbidities and chronic symptoms Weight / BMI Weight Weight: 136.078 kg Body Mass Index (BMI) 40.6 ABG / Lab / Microbiology Data Result Diagrams: 08/21/22 06:20 08/21/22 06:20 Laboratory: Laboratory Results - last 24 hr 08/21/22 09:10: MRSA (PCR) Negative Microbiology: Microbiology 08/20/22 20:25 Urine, Random Urine Culture - Preliminary Culture exhibits no growth. 08/21/22 09:10 Nasal Secretion SARS-CoV-2 Antigen (Rapid) - Final 08/21/22 01:10 Mucosa - Nose Influenza Types A,B Direct FA (MUKUND) - Final Meaningful Use Info Meaningful Use Diagnoses (Choose all that apply): None applicable Discharge Plan Admission Admit Date/Time: 08/21/22 00:32 Primary Reason for Your Visit: Fever Attending Provider: Allen Watts Primary Care Provider: Eric Kang Consulting Providers: Ariel Willoughby ; George Chase ; Tania Allen ; Kassy Stallings ; Kimber Juárez TECHNICAL SUPPORT ANALYST Discharge Orders/Prescriptions Prescriptions: New acetaminophen 500 mg Tablet 1,000 mg PO Q8 Qty: 0 0RF morphine 15 mg Tablet 7.5 mg PO Q6 PRN (Reason: Pain Score 6-10) 3 Days Qty: 12 0RF Chloraseptic Sore Throat 6-10 mg Lozenge 1 chintan mucous membrane Q2H PRN PRN (Reason: SORE THROAT) Qty: 0 0RF Continued metoprolol succinate 200 MG tablet extended release 24 hr 200 mg PO DAILY buspirone 15 MG tablet 15 mg PO BID nitroglycerin 0.4 MG tablet, sublingual 0.4 mg sublingual Q5M PRN (Reason: CHEST PAIN ) multivitamin with minerals 1 EACH tablet 1 ea PO DAILY Xarelto 20 mg Tablet 20 mg PO QPM sulfasalazine 500 mg Tablet 1,000 mg PO DAILY azathioprine 50 mg Tablet 50 mg PO BID lisinopril 5 mg Tablet 5 mg PO DAILY Hold Instructions: Resume on 04/28/22. pregabalin [Lyrica] 50 mg Capsule 50 mg PO BID fenofibrate 54 mg Tablet 54 mg PO DAILY simethicone 125 mg Tablet,Chewable 125 mg PO BID cholecalciferol (vitamin D3) 50 mcg (2,000 unit) Tablet 2,000 mcg PO DAILY spironolactone 25 MG tablet 25 mg PO DAILYCM Hold Instructions: Resume on 04/28/22. citalopram 20 mg Tablet 20 mg PO DAILY omeprazole 20 mg Capsule,Delayed Release(Dr/Ec) 20 mg PO DAILY bisacodyl 10 mg Suppository 10 mg [place] DAILY PRN (Reason: CONSTIPATION ) ferrous sulfate 325 MG tablet 325 mg PO BIDCM melatonin 5 mg Tablet 5 mg PO QHS atorvastatin 40 mg Tablet 40 mg PO QHS 30 Days Qty: 30 0RF diltiazem HCl 120 mg Capsule,Extended Release 24hr 120 mg PO Q12 30 Days Qty: 0 0RF torsemide 20 mg Tablet 40 mg PO DAILY 30 Days Qty: 0 0RF Referrals / Follow Up: Jj Rogers MD [Non-Staff] - Eric Kang MD [Primary Care Provider] - Within 2 Weeks Disposition Disposition (needs filled in before D/C Order can be placed): [facility] Charges/Coding Visit Charges Inpatient E&M: 71366 Disch Hosp >30min
--- NOTE | 2022-08-22 11:42 | CASEMGMT ---
Discharge Planning Discharge orders, signed med list, scripts and transport time sent to [facility] via [facility]. Pickup is sheduled for 12:30p with Physicians. SW, nursing, and patients son, Jordon all notified. Leela Bass, Discharge Planning Asst.
[2022-08-22 11:55] VITALS: BP 92/70; PULSE 101; RESP 22; TEMP 37.2; O2SAT 93
--- NOTE | 2022-08-22 12:05 | NURSING ---
Report called to [facility].
== END 2022-08-22 00:15 | disposition skilled nursing facility (03) ==
LOC: ED 21:38 → PCU 22:18
PROVIDERS: Admitting Provider Hospitalist; Emergency Provider Emergency Medicine; PCP Family Medicine
DX: I95.9 Hypotension, unspecified (principal); M06.9 Rheumatoid arthritis, unspecified; I11.0 Hypertensive heart disease with heart failure; I50.22 Chronic systolic (congestive) heart failure; J96.11 Chronic respiratory failure with hypoxia; I48.91 Unspecified atrial fibrillation; E66.01 Morbid (severe) obesity due to excess calories; Z68.38 Body mass index [BMI] 38.0-38.9, adult; I25.5 Ischemic cardiomyopathy; E05.00 Thyrotoxicosis with diffuse goiter without thyrotoxic crisis or storm; E78.00 Pure hypercholesterolemia, unspecified; D50.9 Iron deficiency anemia, unspecified; R53.81 Other malaise; Z87.891 Personal history of nicotine dependence; F41.9 Anxiety disorder, unspecified; I25.10 Atherosclerotic heart disease of native coronary artery without angina pectoris; Z79.01 Long term (current) use of anticoagulants; G89.29 Other chronic pain; K21.9 Gastro-esophageal reflux disease without esophagitis; I25.2 Old myocardial infarction; Z79.899 Other long term (current) drug therapy; G47.33 Obstructive sleep apnea (adult) (pediatric); E03.9 Hypothyroidism, unspecified; Z99.81 Dependence on supplemental oxygen
CPT/HCPCS: 36415; 71045; 80048; 80053; 81001; 83605; 84145; 85025; 85610; 85730; 87040; 87077; 87086; 87088; 87426; 87633; 87641; 87804; 87811; 93005; 94668; 96361; 96365; 96366; 96367; 99221; 99285; J7030; A4216; G0378

== ENCOUNTER 2022-08-24 20:25 | Emergency (ER) | payer MEDICARE, MEDICAID, SELFPAY ==
[2022-08-24 20:27] VITALS: BP 103/59; PULSE 107; RESP 23; TEMP 36.6; O2SAT 92; BMI 40.6
[2022-08-24] MEDS: 0.9% Normal Saline 1,000 ML 1000 ML IV ×2 (21:00→22:00)
[2022-08-24 21:11] LABS: Absolute Lymphocyte Count 0.53 X10^3/uL (0.83-4.51); Absolute Neutrophil Count 5.9 X10^3/uL (2.0-7.7); Basophil# 0.06 X10^3/uL; Basophil% 0.8 % (0-1); Eosinophil# 0.21 X10^3/uL; Eosinophils% 2.8 % (0-5); Hematocrit 27.6 % (40-54); Hemoglobin 8.5 g/dL (13.0-16.5); Lymphocyte # 0.53 X10^3/ul (0.83-4.51); Mean Corp Hgb Conc 30.8 g/dL (32-36); Mean Corpuscular Hgb 26.8 pg (27.0-32.0); Mean Corpuscular Volume 87.1 fL (80-94); Monocyte# 0.85 X10^3/uL; Monocyte% 11.2 % (0-10); NRBC Flagged by Analyzer 0 % (0-5); Neutrophil % 77.4 % (47-70); POSITIVE DIFFERENTIAL YES; Platelet Count 354 K/mm3 (150-450); RBC Distribution Width CV 17.4 % (11.6-14.6); RBC Distribution Width SD 55.1 fl (35.1-43.9); Red Blood Count 3.17 M/mm3 (4.6-6.2); White Blood Count 7.6 K/mm3 (4.4-11.0)
[2022-08-24 21:25] LABS: Anion Gap 7 (5-15); BUN 27 mg/dL (7-18); BUN/Creat Ratio 27.2 RATIO (10-20); Calcium,Total 7.9 mg/dL (8.5-10.1); Chloride 101 mmol/L (98-107); Creatinine, Serum 0.99 mg/dL (0.70-1.30); EST Glomerular Filtration Rate 79 mL/min (>60); Est Glom Filt Rate - Afr Amer 96 mL/min (>60); Estimated Creatinine Clearance 78.38 ml/min; Glucose 106 mg/dL (74-106); Potassium 3.4 mmol/L (3.5-5.1); Sodium Level 137 mmol/L (136-145)
[2022-08-24 21:26] VITALS: BP 90/57; PULSE 99; RESP 27; O2SAT 97
--- NOTE | 2022-08-24 21:31 | EDS_ITS ---
HPI History of Present Illness Chief Complaint: Alt LOC Narrative Narrative: Patient is a 66-year-old male who is presenting to the ER from the [facility]. Patient had his oxygen level checked by nursing staff and was 80%, this was on room air. Patient normally wears 5 L of oxygen. Patient is 100% on 5 L of oxygen at this time. Patient has longstanding A-fib, morbid obesity, severe chronic pain to his lower extremity secondary to rheumatoid arthritis. Patient was just in the hospital recently for UTI and sepsis. Patient was just discharged 3 to 4 days ago back to nursing care facility. Patient has a history of CHF, hypertension, major depression, sleep apnea, and chronic pain to bilateral lower extremities secondary to rheumatoid arthritis. Patient gets around in a wheelchair. Patient is a full code. Patient is on blood thinners, patient takes Xarelto. Patient is on morphine tablets for pain, patient is on to Lasix tablets, spironolactone tablets, patient uses Tylenol and morphine for pain. Patient is on Cardizem. Lisinopril. Initial report from the [facility] was that patient is normally ANO x3, he was 82% on 4 L, afebrile, confusion, tremors, pale. This is a different presentation that EMS saw when they picked patient up and what I am seeing at bedside as well. [facility] Medical History (Updated 08/25/22 @ 00:[address] Damien Patel, ) Anxiety Atrial fibrillation Back pain Blackout Cardiology follow-up encounter CHF (congestive heart failure) Chronic pain Coronary artery disease involving coronary bypass graft Depression Dietary restriction Difficulty chewing Former smoker Graves disease High cholesterol History of atrial fibrillation History of echocardiogram History of edema History of heart attack History of kidney stones History of pain when walking History of renal disease History of stomach ulcers History of stress test Hypertension Ischemic cardiomyopathy Neuropathy Nocturia Rheumatoid arthritis Shortness of breath on exertion Walker as ambulation aid Home Medications buspirone 15 mg tablet 15 mg PO BID ANXIETY 07/05/19 [History Last Taken 05/14/22] metoprolol succinate 200 mg tablet,extended release 24 hr 200 mg PO DAILY BLOOD PRESSURE 07/05/19 [History Last Taken 05/14/22] multivitamin with minerals 1 ea PO DAILY HEALTH MAINTENANCE 07/05/19 [History Last Taken 05/14/22] nitroglycerin 0.4 mg sublingual tablet 0.4 mg sublingual Q5M PRN CHEST PAIN 07/05/19 [History Last Taken Unknown] azathioprine 50 mg tablet 50 mg PO BID RHEUMATOID ARTHRITIS 11/29/21 [History Last Taken 05/14/22] fenofibrate 54 mg tablet 54 mg PO DAILY CHOLESTEROL 11/29/21 [History Last Taken 05/14/22] lisinopril 5 mg tablet 5 mg PO DAILY BLOOD PRESSURE 11/29/21 [History Last Taken 05/14/22] pregabalin 50 mg capsule (Lyrica) 50 mg PO BID PAIN 11/29/21 [History Last Taken 05/14/22] rivaroxaban 20 mg tablet (Xarelto) 20 mg PO QPM BLOOD THINNER 11/29/21 [History Last Taken 05/13/22] sulfasalazine 500 mg tablet 1,000 mg PO DAILY RHEUMATOID ARTHRITIS 11/29/21 [History Last Taken 05/13/22 12:00] cholecalciferol (vitamin D3) 50 mcg (2,000 unit) tablet 2,000 mcg PO DAILY SUPPLEMENT 04/22/22 [History Last Taken 05/14/22] simethicone 125 mg chewable tablet 125 mg PO BID GAS RELIEF 04/22/22 [History Last Taken 05/14/22] spironolactone 25 mg tablet 25 mg PO DAILYCM CONGESTIVE HEART FAILURE 04/22/22 [History Last Taken 05/13/22 12:00] bisacodyl 10 mg rectal suppository 10 mg UT DAILY PRN CONSTIPATION 05/14/22 [History Last Taken Unknown] citalopram 20 mg tablet 20 mg PO DAILY DEPRESSION 05/14/22 [History Last Taken 05/14/22] ferrous sulfate 325 mg (65 mg iron) tablet 325 mg PO BIDCM SUPPLEMENT 05/14/22 [History Last Taken 05/14/22 08:00] omeprazole 20 mg capsule,delayed release 20 mg PO DAILY ACID REFLUX 05/14/22 [History Last Taken 05/14/22] melatonin 5 mg tablet 5 mg PO QHS 08/03/22 [History Last Taken Unknown] atorvastatin 40 mg tablet 40 mg PO QHS 30 days #30 tabs 08/13/22 [Rx Last Taken Unknown] diltiazem HCl 120 mg capsule,extended release 24 hr 120 mg PO Q12 30 days #0 caps 08/13/22 [Rx Last Taken Unknown] torsemide 20 mg tablet 40 mg PO DAILY CONGESTIVE HEART FAILURE 30 days #0 tabs 08/13/22 [Rx Last Taken 05/14/22] acetaminophen 500 mg tablet 1,000 mg PO Q8 #0 tabs 08/22/22 [Rx Last Taken Unknown] benzocaine 6 mg-menthol 10 mg lozenges (Chloraseptic Sore Throat) 1 chintan mucous membrane Q2H PRN PRN SORE THROAT #0 ea 08/22/22 [Rx Last Taken Unknown] morphine 15 mg immediate release tablet 7.5 mg PO Q6 PRN Pain Score 6-10 3 days #12 tabs 08/22/22 [Rx Last Taken Unknown] Allergy/AdvReac Type Severity Reaction Status Date / Time Penicillins [PCN] Allergy Swelling Verified 05/14/22 12:51 Family History Mother Cancer Father Heart disease Thyroid disorder Hypertension Sister Kidney disease Cancer Diabetes Brother Diabetes Surgical History H/O hernia repair History of cardiac catheterization History of esophagogastroduodenoscopy (EGD) History of incision and drainage Hx of colectomy Hx of colonoscopy Hx of heart bypass surgery S/P cervical spinal fusion S/P right knee arthroscopy Social History Smoking Status: Former smoker EXAM Physical Exam Narrative Exam Narrative: Vital signs reviewed and patient is not hypoxic with 5 L of nasal cannula, he is at 100% oxygen General: The patient appears well and in no apparent distress. Patient is resting comfortably on cart. Not toxic, lethargic, or listless. Patient is alert and orient x3, GCS 15. Patient looks well, has no complaints. Chronic skin changes to lower extremities, Skin: Warm, dry, no pallor noted. There is no rash noted. Chronic peripheral edema. No acute signs of cellulitis or venous stasis. Patient has stage I decubitus ulceration to buttocks, no break in the skin. No signs of any other ulcerations or sores. Head: Normocephalic, atraumatic Eye: Normal conjunctiva, no drainage, EOMI. PERRL. Ears, Nose, Mouth, and Throat: oral mucosa is moist. Nares patent. Mouth without vesicles. Cardiovascular: Regular Rate and Rhythm, no murmurs, gallops, or rubs Respiratory: Patient is in no distress, no accessory muscle use, lungs are clear to auscultation, no wheezing, rales or rhonchi Back: non-tender, no CVA tenderness bilaterally to percussion. NO CTLS midline or paraspinal tenderness to palpation. GI: Soft, morbidly obese no tenderness to palpation, no masses appreciated. No rebound, guarding, or rigidity noted. Musculoskeletal: The patient has full range of motion of all extremities and joints with no difficulty moderate pain with any movement to bilateral hips, knees, ankles, patient states this is chronic secondary to rheumatoid arthritis. Patient is wheelchair-bound.. Patient has no motor, no sensory deficits. Neurological: A&O x4, normal speech, no focal neurological deficits. Psychiatric: Cooperative Const Vital Signs: 08/24/22 20:27 08/24/22 20:35 08/24/22 21:26 Temperature 97.9 F Temperature Source Temporal Pulse Rate 107 H 99 Respiratory Rate 23 H 27 H Respiratory Effort Short of Breath Respiratory Pattern Normal Blood Pressure 103/59 L 90/57 L Blood Pressure Mean 73 68 Pulse Ox 92 97 Oxygen Delivery Method Nasal Cannula Nasal Cannula Oxygen Flow Rate (L/min) 5 5 08/24/22 21:41 08/24/22 22:23 08/25/22 00:00 Temperature 98.8 F 98.6 F 98.4 F Temperature Source Oral Oral Oral Pulse Rate 101 H 118 H 115 H Respiratory Rate 24 H 27 H 24 H Respiratory Effort Respiratory Pattern Blood Pressure 101/72 117/84 H 108/84 H Blood Pressure Mean 81 95 92 Pulse Ox 98 99 99 Oxygen Delivery Method Nasal Cannula Nasal Cannula Nasal Cannula Oxygen Flow Rate (L/min) 5 5 5 MDM MDM MDM Narrative Medical decision making narrative: Patient had no acute changes to lab work. Patient has subtle chronic changes with anemia, hypokalemia, hypocalcemia, but no acute changes today. Patient's been at his normal baseline entire time in the ER. Patient did sleep and rest. Patient's son was questioning at discharge whether he may need CPAP at nighttime or not to help because he does have a history of sleep apnea. Patient and son are aware that the physician overseeing his care at the nursing facility could help with CPAP placement if needed. Patient has been given IV fluids. Patient has responded well to IV fluids. Patient has been very comfortable, no respiratory distress, no hypoxia in the ER. Patient typically wears 4 to 5 L of oxygen. Patient was given 1.5 L of fluid. Maintenance fluids after that. Patient was slightly tachycardic, this was resolved with IV fluids. I did not give patient additional IV fluids secondary to history of CHF. No indication for admission. Patient was just discharged in the hospital 3 days ago. Patient does take Xarelto. No questions at discharge. No signs of sepsis. Patient looks well. ANO x3, patient has no complaints. Patient is not certain why they sent him to the ER, he states the nursing staff thought he was confused the patient looks well. Patient takes morphine and Tylenol daily, patient was given a dose of morphine to help with pain with transfer. Lab Data Attestation: I reviewed the patient's lab results. Labs: Laboratory Results - last 24 hr 08/24/22 08/24/22 21:05 21:05 WBC 7.6 RBC 3.17 L Hgb 8.5 L Hct 27.6 L MCV 87.1 MCH 26.8 L MCHC 30.8 L RDW Std Deviation 55.1 H RDW Coeff of Trev 17.4 H Plt Count 354 MPV 9.0 Immature Gran % (Auto) 0.800 Neut % (Auto) 77.4 H Lymph % (Auto) 7.0 L [place] % (Auto) 11.2 H Eos % (Auto) 2.8 Baso % (Auto) 0.8 Absolute Neuts (auto) 5.9 Absolute Lymphs (auto) 0.53 L Nucleated RBC % 0 Differential Comment SCANNED Sodium 137 Potassium 3.4 L Chloride 101 Carbon Dioxide 29.0 Anion Gap 7 BUN 27 H Creatinine 0.99 Estim Creat Clear Calc 78.38 Est GFR (MDRD) Af Amer 96 Est GFR (MDRD) Non-Af 79 BUN/Creatinine Ratio 27.2 H Glucose 106 Calcium 7.9 L EKG Initial EKG: Attestation: I personally reviewed and interpreted this EKG as follows: Comments: Prehospital EKG was seen, irregular irregular rhythm, normal axis deviation. Artifact noted. No acute ST elevation, no acute ectopy. QTc of 462. Patient has a history of A-fib. Discharge Plan Triage Chief Complaint: Alt LOC ED Provider: Damien Patel Dx/Rx/DC Orders Clinical Impression: Confusion state, Chronic anemia, Dehydration, mild Instructions: Anemia, ED Dehydration (Adult) Prescriptions: No Action metoprolol succinate 200 MG tablet extended release 24 hr 200 mg PO DAILY buspirone 15 MG tablet 15 mg PO BID nitroglycerin 0.4 MG tablet, sublingual 0.4 mg sublingual Q5M PRN (Reason: CHEST PAIN ) multivitamin with minerals 1 EACH tablet 1 ea PO DAILY Xarelto 20 mg Tablet 20 mg PO QPM sulfasalazine 500 mg Tablet 1,000 mg PO DAILY azathioprine 50 mg Tablet 50 mg PO BID lisinopril 5 mg Tablet 5 mg PO DAILY Hold Instructions: Resume on 04/28/22. pregabalin [Lyrica] 50 mg Capsule 50 mg PO BID fenofibrate 54 mg Tablet 54 mg PO DAILY simethicone 125 mg Tablet,Chewable 125 mg PO BID cholecalciferol (vitamin D3) 50 mcg (2,000 unit) Tablet 2,000 mcg PO DAILY spironolactone 25 MG tablet 25 mg PO DAILYCM Hold Instructions: Resume on 04/28/22. citalopram 20 mg Tablet 20 mg PO DAILY omeprazole 20 mg Capsule,Delayed Release(Dr/Ec) 20 mg PO DAILY bisacodyl 10 mg Suppository 10 mg UT DAILY PRN (Reason: CONSTIPATION ) ferrous sulfate 325 MG tablet 325 mg PO BIDCM melatonin 5 mg Tablet 5 mg PO QHS atorvastatin 40 mg Tablet 40 mg PO QHS 30 Days Qty: 30 0RF diltiazem HCl 120 mg Capsule,Extended Release 24hr 120 mg PO Q12 30 Days Qty: 0 0RF torsemide 20 mg Tablet 40 mg PO DAILY 30 Days Qty: 0 0RF acetaminophen 500 mg Tablet 1,000 mg PO Q8 Qty: 0 0RF morphine 15 mg Tablet 7.5 mg PO Q6 PRN (Reason: Pain Score 6-10) 3 Days Qty: 12 0RF Chloraseptic Sore Throat 6-10 mg Lozenge 1 chintan mucous membrane Q2H PRN PRN (Reason: SORE THROAT) Qty: 0 0RF Primary Care Provider: Eric Kang Referrals: Eric Kang MD [Primary Care Provider] - Disposition Disposition: Home, Self Care
[2022-08-24 21:37] LABS: Differential Indicated SCAN CRITERIA MET
[2022-08-24 21:41] VITALS: BP 101/72; PULSE 101; RESP 24; TEMP 37.1; O2SAT 98
[2022-08-24 22:20] LABS: Differential Comment SCANNED
[2022-08-24 22:23] VITALS: BP 117/84; PULSE 118; RESP 27; TEMP 37; O2SAT 99
[2022-08-25] VITALS: BP 108/84; PULSE 115; RESP 24; TEMP 36.9; O2SAT 99
[2022-08-25] MEDS: 0.9 % Sodium Chloride Viaflo 500 ML IV.SOLN IV (00:48)
[2022-08-25] MEDS: Morphine 4 MG/ML Syringe IV (01:36)
[2022-08-25 01:44] VITALS: BP 116/73; PULSE 108; RESP 25; O2SAT 98
== END 2022-08-25 01:30 | disposition home or self-care (01) ==
PROVIDERS: Emergency Provider Emergency Medicine; PCP Family Medicine; Referring Provider Emergency Medicine; Visit Provider Emergency Medicine
DX: R41.0 Disorientation, unspecified (principal); M06.9 Rheumatoid arthritis, unspecified; I11.0 Hypertensive heart disease with heart failure; I50.9 Heart failure, unspecified; I48.91 Unspecified atrial fibrillation; E66.01 Morbid (severe) obesity due to excess calories; Z99.81 Dependence on supplemental oxygen; G89.29 Other chronic pain; E86.0 Dehydration; E78.00 Pure hypercholesterolemia, unspecified; I25.10 Atherosclerotic heart disease of native coronary artery without angina pectoris; D64.9 Anemia, unspecified; Z99.3 Dependence on wheelchair; Z79.01 Long term (current) use of anticoagulants
CPT/HCPCS: 80048; 85025; 96361; 96374; 96375; 99285; J7030; J7040; A4216